=== PATIENT | female | born 1945 | race Caucasian/White ===

== ENCOUNTER 2023-09-06 11:07 | Emergency (ER) | payer MEDICARE, MEDICAID, SELFPAY ==
[2023-09-06] VITALS (20 sets, daily range): BP systolic 103–142; BP diastolic 48–66; PULSE 37–81; TEMP 36.6; O2SAT 82–98; BMI 30.7
--- NOTE | 2023-09-06 11:12 | ED.SOB1 ---
HPI - SOB/Dyspnea General Chief Complaint: Shortness of Breath/Dyspnea Stated Complaint: SOB Time Seen by Provider: 09/06/23 11:12 Source: patient History of Present Illness HPI Narrative: Patient brought to us from the [facility]. She is an extremely limited historian. Abena brought her and said that called her because of shortness of breath. When they put her on the monitor she had mild hypoxemia but she was extremely bradycardic. When she arrived here I reviewed her medical records and she is on a beta-shanti, calcium channel shanti and Lanoxin. She is not having any chest pain. A stat twelve-lead EKG will be done and shows undetermined rhythm with no distinct P waves. It may be a junctional escape rhythm at rate 37. It fluctuated between 37 and 50. Fortunately her blood pressure has remained stable with systolics above 130. Her son arrived and we had an extensive discussion about her conditions. 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 While she is a full code numerous physicians have told her that she is not a candidate for any type of surgical procedures for her other medical problems. Related Data Home Medications ?Medication ?Instructions ?Recorded ?Confirmed Lactobacillus acidophilus, 1 packet PO DAILY 09/06/23 09/06/23 bulgaricus 100 million cell granules packet (Floranex) acarbose 100 mg tablet 100 mg PO TID 09/06/23 09/06/23 acetaminophen 500 mg capsule 1,000 mg PO DAILY 09/06/23 09/06/23 atorvastatin 20 mg tablet (Lipitor) 20 mg PO DAILY 09/06/23 09/06/23 calcium carbonate 500 mg-vitamin 1 tab PO BID 09/06/23 09/06/23 D3 10 mcg (400 unit) tablet (Oyster Shell Calcium-Vitamin D3) conjugated estrogens 0.625 mg/gram 0.625 mg vaginal DAILY 09/06/23 09/06/23 vaginal cream (Premarin) dextromethorphan 20 mg-quinidine 1 cap PO Q12H 09/06/23 09/06/23 10 mg capsule (Nuedexta) digoxin 125 mcg (0.125 mg) tablet 125 mcg PO DAILY 09/06/23 09/06/23 (Digitek) diltiazem HCl 180 mg 180 mg PO DAILY 09/06/23 09/06/23 capsule,extended release 24 hr (Cardizem CD) duloxetine 30 mg capsule,delayed 30 mg PO DAILY 09/06/23 09/06/23 release (Cymbalta) ergocalciferol (vitamin D2) 1,250 50,000 unit PO QDAY 09/06/23 09/06/23 mcg (50,000 unit) capsule (Vitamin D2) famotidine 40 mg tablet (Pepcid) 40 mg PO DAILY 09/06/23 09/06/23 ferrous sulfate 325 mg (65 mg 325 mg PO DAILY 09/06/23 09/06/23 iron) tablet (FeroSul) lamotrigine 100 mg tablet 100 mg PO DAILY 09/06/23 09/06/23 (Lamictal) magnesium 200 mg tablet 400 mg PO DAILY 09/06/23 09/06/23 melatonin 10 mg capsule 10 mg PO DAILY 09/06/23 09/06/23 memantine 21 mg capsule 21 mg PO DAILY 09/06/23 09/06/23 sprinkle,extended release 24hr metformin 1,000 mg tablet 1,000 mg PO DAILY 09/06/23 09/06/23 metformin 500 mg tablet 500 mg PO BID 09/06/23 09/06/23 metoprolol tartrate 50 mg tablet 50 mg PO DAILY 09/06/23 09/06/23 (Lopressor) nitroglycerin 0.4 mg sublingual 0.4 mg sublingual Q5M 09/06/23 09/06/23 tablet (Nitrostat) pioglitazone 15 mg tablet (Actos) 7.5 mg PO DAILY 09/06/23 09/06/23 polyethylene glycol 3350 17 17 g PO BID PRN constipation 09/06/23 09/06/23 gram/dose oral powder (ClearLax) psyllium husk 0.4 gram capsule 0.4 g PO BID 09/06/23 09/06/23 (Daily Fiber) rivaroxaban 20 mg tablet (Xarelto) 20 mg PO DAILY 09/06/23 09/06/23 simethicone 125 mg capsule (Gas 125 mg PO TID-QID PRN abdominal 09/06/23 09/06/23 Relief (simethicone)) distention spironolactone 50 mg tablet 50 mg PO DAILY 09/06/23 09/06/23 trazodone 150 mg tablet 150 mg PO DAILY 09/06/23 09/06/23 Allergies Allergy/AdvReac Type Severity Reaction Status Date / Time aspirin Allergy Unknown Verified 09/06/23 11:21 fluoxetine [From Prozac] Allergy Unknown Verified 09/06/23 11:21 hydrochlorothiazide Allergy Unknown Verified 09/06/23 11:21 Penicillins Allergy Unknown Verified 09/06/23 11:21 pregabalin [From Lyrica] Allergy Unknown Verified 09/06/23 11:21 sertraline [From Zoloft] Allergy Unknown Verified 09/06/23 11:21 Sulfa (Sulfonamide Allergy Unknown Verified 09/06/23 11:21 Antibiotics) tetanus and diphtheria Allergy Unknown Verified 09/06/23 11:21 toxoids Exam Narrative Exam Narrative: Patient is awake and alert she is somewhat difficult to understand because of slurred speech from her previous stroke. But she specifically denies any pain in her chest . She does admit to some dyspnea and her oxygen levels were controlled with nasal cannula so as to maintain good pulse oximetry. She is oriented x 3 she can talk about her family and interacts well with the staff and myself. Lungs showed some scattered rhonchi bilaterally. Heart sounds show distant heart sounds. This is consistent with a chest x-ray that shows vascular congestion consistent with CHF. Rhythm is bradycardic. Abdomen is nontender. There is no obvious ascites. Her extremities have some peripheral edema and there is a sore on the medial aspect of her left great toe that appears to be an early pressure ulcer. There is no extensive cellulitis associated with this. Extremities are warm and dry. Constitutional Vital Signs, click to edit/add: Last Vital Signs Temp 97.9 F 09/06/23 11:09 Pulse 51 L 09/06/23 11:09 Resp 16 09/06/23 11:09 BP 142/53 H 09/06/23 12:26 Pulse Ox 82 L 09/06/23 11:09 O2 Del Method Room Air 09/06/23 11:09 Course Vital Signs Vital signs: Vital Signs Temperature 97.9 F 09/06/23 11:09 Pulse Rate 51 L 09/06/23 11:09 Respiratory Rate 16 09/06/23 11:09 Blood Pressure 142/53 H 09/06/23 11:09 Pulse Oximetry 82 L 09/06/23 11:09 Oxygen Delivery Method Room Air 09/06/23 11:09 Temperature 97.9 F 09/06/23 11:09 Pulse Rate 51 L 09/06/23 11:09 Respiratory Rate 16 09/06/23 11:09 Blood Pressure 142/53 H 09/06/23 12:26 Pulse Oximetry 82 L 09/06/23 11:09 Oxygen Delivery Method Room Air 09/06/23 11:09 MDM - SOB/Dyspnea MDM Narrative Medical decision making narrative: This patient presents with hemodynamically stable bradycardia arrhythmia. Digoxin level was found to be substantially elevated. She is also on calcium channel blockers and beta-blockers. Chest x-ray consistent with pulmonary vascular congestion. BNP consistent with congestive heart failure as well. I feel she can best be managed at a tertiary care facility as she may need a pacemaker imminently. I spoke with [facility] director of capital giving and the emergency room physician where they have excepted her for immediate transfer to that facility. They did recommend [facility]ib[facility] and we will have our pharmacy or dose that for her. Fortunately her blood pressures remained stable mental status is normal. I also spoke with her primary care Dr. Ramírez to update him as well. Lab Data Labs: Lab Results 09/06/23 Range/Units 11:00 WBC 13.7 H (4.0-11.0) 10^3/uL RBC 3.11 L (4.20-5.40) 10^6/uL Hgb 9.1 L (12.0-16.0) g/dL Hct 30.7 L (36.0-48.0) % MCV 98.7 (81.0-99.0) fL MCH 29.3 (26.7-34.0) pg MCHC 29.6 L (29.9-35.2) g/dL RDW 17.6 H (11.0-15.0) % Plt Count 384 (150-450) 10^3/uL MPV 8.8 L (9.5-13.5) fL Neut % (Auto) 81.5 H (43.0-75.0) % Lymph % (Auto) 9.8 L (20.5-60.0) % [place] % (Auto) 6.0 (1.7-12.0) % Eos % (Auto) 1.5 (0.9-7.0) % Baso % (Auto) 0.3 (0.2-2.0) % Neut # (Auto) 11.2 H (1.4-6.5) 10^3/uL Lymph # (Auto) 1.3 (1.2-3.8) 10^3/uL [place] # (Auto) 0.8 (0.3-0.8) 10^3/uL Eos # (Auto) 0.2 (0.0-0.7) 10^3/uL Baso # (Auto) 0.0 (0.0-0.1) 10^3/uL Abs Immat Gran (auto) 0.12 H (0.00-0.03) 10^3/uL Imm/Tot Granulo (auto) 0.9 H (0.0-0.5) % PT 13.5 H (9.0-11.6) sec INR 1.31 Sodium 137 (136-145) mmol/L Potassium 5.4 H (3.5-5.1) mmol/L Chloride 99 (98-107) mmol/L Carbon Dioxide 36.3 H (21.0-32.0) mmol/L Anion Gap 7.1 BUN 21.0 H (7.0-18.0) mg/dL Creatinine 0.72 (0.55-1.02) mg/dL Est GFR ( Amer) >60 (>=60) Est GFR (Non-Af Amer) >60 (>=60) BUN/Creatinine Ratio 29.2 Glucose 147 H (74-106) mg/dL Calcium 10.2 H (8.5-10.1) mg/dL Total Bilirubin 0.4 (0.2-1.0) mg/dL AST 10 L (15-37) U/L ALT 12 L (14-59) U/L Alkaline Phosphatase 54 (46-116) U/L Troponin I High Sens 9.5 (4.0-51.3) pg/mL NT-Pro-B Natriuret Pep 3970.0 H* (<=1800.0) pg/mL Total Protein 7.5 (6.4-8.2) g/dL Albumin 2.5 L (3.4-5.0) g/dL Globulin 5.0 g/dL Albumin/Globulin Ratio 0.5 Digoxin 2.6 H* (0.9-2.0) ng/mL Discharge Plan Discharge Chief Complaint: Shortness of Breath/Dyspnea Clinical Impression: Bradycardia, Digitalis toxicity Patient Disposition: [facility] Time of Disposition Decision: 12:47 Condition: Serious Mode of Transportation: EMS Prescriptions / Home Meds: No Action digoxin [Digitek] 125 mcg (0.125 mg) tablet 125 mcg PO DAILY acetaminophen 500 mg capsule 1,000 mg PO DAILY ferrous sulfate [FeroSul] 325 mg (65 mg iron) tablet 325 mg PO DAILY lamotrigine [Lamictal] 100 mg tablet 100 mg PO DAILY atorvastatin [Lipitor] 20 mg tablet 20 mg PO DAILY magnesium 200 mg tablet 400 mg PO DAILY metformin 1,000 mg tablet 1,000 mg PO DAILY metformin 500 mg tablet 500 mg PO BID metoprolol tartrate [Lopressor] 50 mg tablet 50 mg PO DAILY calcium carbonate-vitamin D3 [Oyster Shell Calcium-Vit D3] 500 mg-10 mcg (400 unit) tablet 1 tab PO BID famotidine [Pepcid] 40 mg tablet 40 mg PO DAILY simethicone [Gas Relief (simethicone)] 125 mg capsule 125 mg PO TID-QID PRN (Reason: abdominal distention) ergocalciferol (vitamin D2) [Vitamin D2] 1,250 mcg (50,000 unit) capsule 50,000 unit PO QDAY Xarelto 20 mg tablet 20 mg PO DAILY Rx Instructions: must administer with evening meal psyllium husk [Daily Fiber] 0.4 gram capsule 0.4 g PO BID Lactobacillus acidoph-L.bulgar [Floranex] 100 million cell granules in packet 1 packet PO DAILY memantine 21 mg capsule,sprinkle,ER 24hr 21 mg PO DAILY spironolactone 50 mg tablet 50 mg PO DAILY polyethylene glycol 3350 [ClearLax] 17 gram/dose powder 17 g PO BID PRN (Reason: constipation) nitroglycerin [Nitrostat] 0.4 mg tablet, sublingual 0.4 mg sublingual Q5M Rx Instructions: do not exceed 3 doses per episode pioglitazone [Actos] 15 mg tablet 7.5 mg PO DAILY diltiazem HCl [Cardizem CD] 180 mg capsule,extended release 24hr 180 mg PO DAILY Nuedexta 20-10 mg capsule 1 cap PO Q12H acarbose 100 mg tablet 100 mg PO TID Premarin 0.625 mg/gram cream 0.625 mg vaginal DAILY Rx Instructions: off 5 days; repeat cycle duloxetine [Cymbalta] 30 mg capsule,delayed release(DR/EC) 30 mg PO DAILY melatonin 10 mg capsule 10 mg PO DAILY trazodone 150 mg tablet 150 mg PO DAILY Print Language: Turkish Referrals: MARY KAY MAJOR MD [Primary Care Provider] - 1 week
--- NOTE | 2023-09-06 11:13 | ECG_ITS ---
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
[2023-09-06 11:29] LABS: Basophils Percent Auto 0.3 % (0.2-2.0); Eosinophils Absolute Auto 0.2 10^3/uL (0.0-0.7); Eosinophils Percent Auto 1.5 % (0.9-7.0); Hematocrit 30.7 % (36.0-48.0); Hemoglobin 9.1 g/dL (12.0-16.0); Immature Granulocytes Abs Auto 0.12 10^3/uL (0.00-0.03); Immature Granulocytes Pct Auto 0.9 % (0.0-0.5); Lymphocytes Absolute Auto 1.3 10^3/uL (1.2-3.8); Lymphocytes Percent Auto 9.8 % (20.5-60.0); Mean Corpuscular HGB Conc 29.6 g/dL (29.9-35.2); Mean Corpuscular Hemoglobin 29.3 pg (26.7-34.0); Mean Corpuscular Volume 98.7 fL (81.0-99.0); Mean Platelet Volume 8.8 fL (9.5-13.5); Monocytes Absolute Auto 0.8 10^3/uL (0.3-0.8); Neutrophils Absolute Auto 11.2 10^3/uL (1.4-6.5); Neutrophils Percent Auto 81.5 % (43.0-75.0); Platelet Count 384 10^3/uL (150-450); Red Blood Count 3.11 10^6/uL (4.20-5.40); Red Cell Distribution Width 17.6 % (11.0-15.0); White Blood Count 13.7 10^3/uL (4.0-11.0)
[2023-09-06 11:45] LABS: INR 1.31; Prothrombin Time 13.5 sec (9.0-11.6)
[2023-09-06 11:48] LABS: Alanine Aminotransferase 12 U/L (14-59); Albumin Globulin Ratio 0.5; Albumin Level 2.5 g/dL (3.4-5.0); Alkaline Phosphatase 54 U/L (46-116); Anion Gap 7.1; Aspartate Amino Transferase 10 U/L (15-37); BUN Creatinine Ratio 29.2; Bilirubin Total 0.4 mg/dL (0.2-1.0); Calcium 10.2 mg/dL (8.5-10.1); Carbon Dioxide 36.3 mmol/L (21.0-32.0); Chloride 99 mmol/L (98-107); Estimated GFR (African America >60 (>=60); Estimated GFR (Non-African Ame >60 (>=60); Glucose 147 mg/dL (74-106); Potassium 5.4 mmol/L (3.5-5.1); Sodium 137 mmol/L (136-145); Total Protein 7.5 g/dL (6.4-8.2); Troponin I High Sensitivity 9.5 pg/mL (4.0-51.3)
--- NOTE | 2023-09-06 11:52 | XR_ITS ---
The [address] [address] Patient Name: NAVEED PRADO MRN: [id number] date: 1945 Sex: F Assigned Patient Location: ER Current Patient Location: ER Accession/Order Number: [id number] Exam Date: 09/06/2023 11:45 Report Date: 09/06/2023 12:07 At the request of: LUKASZ HERNADEZ Procedure: XR chest 1V EXAMINATION: XR chest 1V HISTORY: Bradycardia COMPARISON: XR chest 02/26/2022 FINDINGS: LUNGS: Heterogeneous increased opacity throughout the lungs. Defibrillator pads overlie the lower chest. VASCULATURE: No increased pulmonary vasculature. PLEURA: No pneumothorax, effusion, or pleural thickening. CARDIAC: No cardiomegaly or cardiac silhouette abnormality. MEDIASTINUM: No visible mass or adenopathy. BONES: No fracture or visible bone lesion. OTHER: Negative. XR/XR chest 1V IMPRESSION: 1. Moderate-marked bilateral pulmonary infiltrates; pulmonary edema versus pneumonitis versus pneumonia. Electronically authenticated by: BRITTANY YBARRA Date: 09/06/2023 12:07
[2023-09-06 12:12] LABS: Digoxin 2.6 ng/mL (0.9-2.0)
[2023-09-06] MEDS: BUMETANIDE 1 MG/4 ML VIAL IVP (12:26)
[2023-09-06] MEDS: DIGOXIN IMMUNE FAB IV (13:12)
[2023-09-06] MEDS: SODIUM CHLORIDE 0.9% IV (13:12)
[2023-09-06] MEDS: WATER FOR INJECTION, STERILE 20 ML VIAL 8 ML INJ (13:13)
== END 2023-09-06 15:12 | disposition short-term general hospital (02) ==
PROVIDERS: Emergency Provider Emergency Medicine Emergency Medical Services; PCP Internal Medicine
DX: R00.1 Bradycardia, unspecified (principal); T46.0X5A Adverse effect of cardiac-stimulant glycosides and drugs of similar action, initial encounter; Z86.73 Personal history of transient ischemic attack (TIA), and cerebral infarction without residual deficits; Z99.3 Dependence on wheelchair
CPT/HCPCS: 36415; 71045; 80053; 80162; 83880; 84484; 85025; 85610; 93005; 96365; 96366; 96375; 99285; J1162

== ENCOUNTER 2023-09-24 09:56 | Emergency (ER) | payer MEDICARE, MEDICAID, SELFPAY ==
[2023-09-24] VITALS (46 sets, daily range): BP systolic 98–136; BP diastolic 58–101; PULSE 82–126; TEMP 36.4; O2SAT 96–100; BMI 27.6
--- NOTE | 2023-09-24 10:17 | ED_ITS ---
HPI - Weakness General Chief complaint: Weakness Stated complaint: GENERAL WEAKNESS Time Seen by Provider: 09/24/23 10:11 Source: patient Mode of arrival: ambulance Limitations: no limitations History of Present Illness HPI Narrative: This patient brought to us from a care for Weakness. When I interview her she denies any pain or discomfort. She says her butt hurts. She denies any chest pain. She says she wears oxygen at the residential. She knows the date and her situation. Her vitals here are stable and she is afebrile. She wears oxygen nasal cannula and her oximetry is excellent at 97%. She denies any headache discomfort in her chest or abdominal pain. I have reviewed some of her previous images and laboratory testing from previous ER visits. She did not need a pacemaker after having digitalis toxicity and are transferred to a tertiary center previously. Related Data Home Medications ?Medication ?Instructions ?Recorded ?Confirmed acetaminophen 500 mg capsule 1,000 mg PO DAILY 09/06/23 09/24/23 atorvastatin 20 mg tablet (Lipitor) 20 mg PO DAILY 09/06/23 09/24/23 calcium carbonate 500 mg-vitamin 1 tab PO BID 09/06/23 09/24/23 D3 10 mcg (400 unit) tablet (Oyster Shell Calcium-Vitamin D3) conjugated estrogens 0.625 mg/gram 0.625 mg vaginal DAILY 09/06/23 09/24/23 vaginal cream (Premarin) dextromethorphan 20 mg-quinidine 1 cap PO Q12H 09/06/23 09/06/23 10 mg capsule (Nuedexta) digoxin 125 mcg (0.125 mg) tablet 125 mcg PO DAILY 09/06/23 09/24/23 (Digitek) duloxetine 30 mg capsule,delayed 30 mg PO DAILY 09/06/23 09/24/23 release (Cymbalta) famotidine 40 mg tablet (Pepcid) 20 mg PO DAILY 09/06/23 09/24/23 ferrous sulfate 325 mg (65 mg 325 mg PO DAILY 09/06/23 09/24/23 iron) tablet (FeroSul) lamotrigine 100 mg tablet 100 mg PO DAILY 09/06/23 09/24/23 (Lamictal) magnesium 200 mg tablet 400 mg PO DAILY 09/06/23 09/24/23 melatonin 10 mg capsule 10 mg PO DAILY 09/06/23 09/24/23 memantine 21 mg capsule 21 mg PO DAILY 09/06/23 09/24/23 sprinkle,extended release 24hr metformin 1,000 mg tablet 1,000 mg PO DAILY 09/06/23 09/24/23 metoprolol tartrate 50 mg tablet 50 mg PO Q12H 09/06/23 09/24/23 (Lopressor) nitroglycerin 0.4 mg sublingual 0.4 mg sublingual Q5M 09/06/23 09/24/23 tablet (Nitrostat) polyethylene glycol 3350 17 17 g PO BID PRN constipation 09/06/23 09/24/23 gram/dose oral powder (ClearLax) psyllium husk 0.4 gram capsule 0.4 g PO BID 09/06/23 09/24/23 (Daily Fiber) rivaroxaban 20 mg tablet (Xarelto) 20 mg PO DAILY 09/06/23 09/24/23 spironolactone 50 mg tablet 50 mg PO DAILY 09/06/23 09/24/23 trazodone 150 mg tablet 150 mg PO DAILY 09/06/23 09/24/23 artificial drp ophthalmic (eye) 09/24/23 tears([id number]) 0.1 %-0.3 %-0.2 % eye drops (GenTeal Tears Moderate) clobetasol 0.05 % topical cream 1 applic topical BID PRN vaginal 09/24/23 09/24/23 irritation famotidine 40 mg tablet (Pepcid) 40 mg PO DAILY 09/24/23 09/24/23 lamotrigine 25 mg tablet 25 mg PO DAILY 09/24/23 09/24/23 linagliptin 5 mg tablet (Tradjenta) 5 mg PO DAILY 09/24/23 09/24/23 Allergies Allergy/AdvReac Type Severity Reaction Status Date / Time aspirin Allergy Unknown Verified 09/06/23 11:21 fluoxetine [From Prozac] Allergy Unknown Verified 09/06/23 11:21 hydrochlorothiazide Allergy Unknown Verified 09/06/23 11:21 Penicillins Allergy Unknown Verified 09/06/23 11:21 pregabalin [From Lyrica] Allergy Unknown Verified 09/06/23 11:21 sertraline [From Zoloft] Allergy Unknown Verified 09/06/23 11:21 Sulfa (Sulfonamide Allergy Unknown Verified 09/06/23 11:21 Antibiotics) tetanus and diphtheria Allergy Unknown Verified 09/06/23 11:21 toxoids Exam Narrative Exam Narrative: She is awake alert oriented no evidence of acute confusion or change in mental status. She follows all simple and complex hands. She actually just says she feels weak and has a little pain near her buttock area. She does not have any abdominal discomfort shortness of breath or chest discomfort of any sort. Also there are normal and she has been afebrile. She has been on oxygen since her last ER visit. Constitutional it does not appear pale or and does not have any scleral icterus. No conjunctival us. Oral cavity mucous memories are moist and pink there is no upper airway obstruction or stridor. Lungs showed some scattered rhonchi decreased lung sounds on the left side. No subcutaneous emphysema. Trachea is in the midline. Her quality assurance monitor final shows continuing atrial fibrillation with a controlled ventricular response I do not hear any murmur. Abdomen is benign with no pain she has morbidly obese but there is no guarding rebound rigidity or discomfort with palpation. Neurological examination shows her cognition and mentation be normal there is no focality of findings. Constitutional Vital Signs, click to edit/add: Last Vital Signs Temp 97.6 F 09/24/23 10:02 Pulse 104 H 09/24/23 13:10 Resp 14 09/24/23 13:10 BP 100/68 09/24/23 13:01 Pulse Ox 100 09/24/23 13:10 O2 Del Method Nasal Cannula 09/24/23 10:15 O2 Flow Rate 2 09/24/23 10:15 Course Vital Signs Vital signs: Vital Signs Temperature 97.6 F 09/24/23 10:02 Pulse Rate 98 H 09/24/23 10:02 Respiratory Rate 22 H 09/24/23 10:02 Blood Pressure 114/65 09/24/23 10:02 Pulse Oximetry 97 09/24/23 10:02 Oxygen Delivery Method Nasal Cannula 09/24/23 10:02 Oxygen Delivery Flow Rate 2 09/24/23 10:02 Temperature 97.6 F 09/24/23 10:02 Pulse Rate 104 H 09/24/23 13:10 Respiratory Rate 14 09/24/23 13:10 Blood Pressure 100/68 09/24/23 13:01 Pulse Oximetry 100 09/24/23 13:10 Oxygen Delivery Method Nasal Cannula 09/24/23 10:15 Oxygen Delivery Flow Rate 2 09/24/23 10:15 MDM - Weakness MDM Narrative Medical decision making narrative: Patient's laboratory testing did not disclose any severe deterioration of her condition. Chest x-ray findings are equivocal ball so we did do a CT scan. CT scan does not show and there interval worsening of her previous findings. Her vital signs and oxygen saturation remained stable here. Her urinalysis was done and does not show any evidence of an infectious process. Do not have any acute need for hospitalization at this time. She did receive some IV fluids Lab Data Labs: Lab Results 09/24/23 09/24/23 Range/Units 11:21 13:07 WBC 13.3 H (4.0-11.0) 10^3/uL RBC 3.57 L (4.20-5.40) 10^6/uL Hgb 10.4 L (12.0-16.0) g/dL Hct 35.4 L (36.0-48.0) % MCV 99.2 H (81.0-99.0) fL MCH 29.1 (26.7-34.0) pg MCHC 29.4 L (29.9-35.2) g/dL RDW 16.8 H (11.0-15.0) % Plt Count 407 (150-450) 10^3/uL MPV 8.4 L (9.5-13.5) fL Neut % (Auto) 77.0 H (43.0-75.0) % Lymph % (Auto) 11.3 L (20.5-60.0) % [place] % (Auto) 8.8 (1.7-12.0) % Eos % (Auto) 1.7 (0.9-7.0) % Baso % (Auto) 0.4 (0.2-2.0) % Neut # (Auto) 10.3 H (1.4-6.5) 10^3/uL Lymph # (Auto) 1.5 (1.2-3.8) 10^3/uL [place] # (Auto) 1.2 H (0.3-0.8) 10^3/uL Eos # (Auto) 0.2 (0.0-0.7) 10^3/uL Baso # (Auto) 0.1 (0.0-0.1) 10^3/uL Abs Immat Gran (auto) 0.10 H (0.00-0.03) 10^3/uL Imm/Tot Granulo (auto) 0.8 H (0.0-0.5) % VBG pH 7.455 H (7.330-7.430) VBG pCO2 47.3 (40.0-52.0) mmHg Sodium 136 (136-145) mmol/L Potassium 4.8 (3.5-5.1) mmol/L Chloride 98 (98-107) mmol/L Carbon Dioxide 32.5 H (21.0-32.0) mmol/L Anion Gap 10.3 BUN 20.0 H (7.0-18.0) mg/dL Creatinine 0.79 (0.55-1.02) mg/dL Est GFR ( Amer) >60 (>=60) Est GFR (Non-Af Amer) >60 (>=60) BUN/Creatinine Ratio 25.3 Glucose 130 H (74-106) mg/dL Lactate 2.1 H (0.4-2.0) mmol/L Calcium 10.4 H (8.5-10.1) mg/dL Total Bilirubin 0.4 (0.2-1.0) mg/dL AST 17 (15-37) U/L ALT 14 (14-59) U/L Alkaline Phosphatase 60 (46-116) U/L Troponin I High Sens 8.8 (4.0-51.3) pg/mL NT-Pro-B Natriuret Pep 3005.0 H* (<=1800.0) pg/mL Total Protein 7.9 (6.4-8.2) g/dL Albumin 2.5 L (3.4-5.0) g/dL Globulin 5.4 g/dL Albumin/Globulin Ratio 0.5 Urine Color Dk yellow (YELLOW) Urine Clarity Clear (CLEAR) Urine pH 6.5 (5.0-9.0) Ur Specific [place] 1.020 (1.005-1.025) Urine Protein Trace (NEG/TRACE) mg/dL Urine Glucose (UA) Negative (NEGATIVE) mg/dL Urine Ketones Trace A (NEGATIVE) mg/dL Urine Occult Blood Negative (NEGATIVE) Urine Nitrite Negative (NEGATIVE) Urine Bilirubin Negative (NEGATIVE) Urine Urobilinogen 0.2 (0.2-1.0) EU/dL Ur Leukocyte Esterase Negative (NEGATIVE) Discharge Plan Discharge Stand Alone Forms: Portal Instructions Chief Complaint: Weakness Clinical Impression: Atrial fibrillation with controlled ventricular rate Patient Disposition: Home, Self-Care Time of Disposition Decision: 13:34 Prescriptions / Home Meds: No Action clobetasol 0.05 % cream 1 applic TOPICAL BID PRN (Reason: vaginal irritation) lamotrigine 25 mg tablet 25 mg PO DAILY artificial tear([id number]) [GenTeal Tears Moderate] 0.1-0.3-0.2 % drops OPHTHALMIC (EYE) famotidine [Pepcid] 40 mg tablet 40 mg PO DAILY Tradjenta 5 mg tablet 5 mg PO DAILY digoxin [Digitek] 125 mcg (0.125 mg) tablet 125 mcg PO DAILY acetaminophen 500 mg capsule 1,000 mg PO DAILY ferrous sulfate [FeroSul] 325 mg (65 mg iron) tablet 325 mg PO DAILY lamotrigine [Lamictal] 100 mg tablet 100 mg PO DAILY atorvastatin [Lipitor] 20 mg tablet 20 mg PO DAILY magnesium 200 mg tablet 400 mg PO DAILY metformin 1,000 mg tablet 1,000 mg PO DAILY metoprolol tartrate [Lopressor] 50 mg tablet 50 mg PO Q12H calcium carbonate-vitamin D3 [Oyster Shell Calcium-Vit D3] 500 mg-10 mcg (400 unit) tablet 1 tab PO BID famotidine [Pepcid] 40 mg tablet 20 mg PO DAILY Xarelto 20 mg tablet 20 mg PO DAILY Rx Instructions: must administer with evening meal psyllium husk [Daily Fiber] 0.4 gram capsule 0.4 g PO BID memantine 21 mg capsule,sprinkle,ER 24hr 21 mg PO DAILY spironolactone 50 mg tablet 50 mg PO DAILY polyethylene glycol 3350 [ClearLax] 17 gram/dose powder 17 g PO BID PRN (Reason: constipation) nitroglycerin [Nitrostat] 0.4 mg tablet, sublingual 0.4 mg sublingual Q5M Rx Instructions: do not exceed 3 doses per episode Nuedexta 20-10 mg capsule 1 cap PO Q12H Premarin 0.625 mg/gram cream 0.625 mg vaginal DAILY Rx Instructions: off 5 days; repeat cycle duloxetine [Cymbalta] 30 mg capsule,delayed release(DR/EC) 30 mg PO DAILY melatonin 10 mg capsule 10 mg PO DAILY trazodone 150 mg tablet 150 mg PO DAILY Print Language: Guatemalan Additional Instructions: Continue present medications Referrals: MARY KAY MAJOR DO [Primary Care Provider] - 1 week
--- NOTE | 2023-09-24 10:18 | ECG_ITS ---
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
--- NOTE | 2023-09-24 10:18 | XR_ITS ---
The [address] [address] Patient Name: NAVEED PRADO MRN: [id number] date: 1945 Sex: F Assigned Patient Location: ER Current Patient Location: ER Accession/Order Number: [id number] Exam Date: 09/24/2023 10:36 Report Date: 09/24/2023 10:48 At the request of: LUKASZ HERNADEZ Procedure: XR chest 1V EXAMINATION: XR chest 1V HISTORY: Weakness , lethargy COMPARISON: XR chest 09/06/2023 FINDINGS: LUNGS: Partial collapse of left lung. Mild bronchiectasis and slight right hilar prominence. VASCULATURE: No increased pulmonary vasculature. PLEURA: Large left pleural effusion. CARDIAC: Cannot assess. MEDIASTINUM: No visible mass or adenopathy. BONES: No fracture or visible bone lesion. OTHER: Negative. XR/XR chest 1V IMPRESSION: 1. Large left pleural effusion with partial collapse of left lung; likely passive atelectasis. Consider CT chest for further evaluation. Electronically authenticated by: BRITTANY YBARRA Date: 09/24/2023 10:48
[2023-09-24] MEDS: 0.9 % SODIUM CHLORIDE 1,000 ML 100 ML IV (10:26)
--- OUTSIDE RECORDS SUMMARY | 2023-09-24 10:26 | XMS_ITS | CCD ---
Author Organization [facility] Inform ion Partnership [facility] Care Team Providers Care Local City Driver Name Role Phone FLORIN, DR PRESTON Attending Unavailable FLORIN, DR PRESTON Admitting Unavailable FLORIN, DR PRESTON Consulting Unavailable VALLEONIDAS, DR MUÑIZ Primary Care Unavailable YUE, DR ZENON Loya Consulting Unavailable TATE, DR BRITTANY Wallace Consulting Unavailable CIARA SORIA Consulting Unavailable MILLICENT ESPINAL Consulting Unavailable IDANIA CUEVAS Consulting Unavailable KOBI TOMAS Consulting Unavailable KARSTEN MUJICA Consulting Unavailable ANUSHKA FLANAGAN Consulting Unavailable MARY KAY MAJOR Primary Care Unavailable SHEELA ORANTES Admitting Unavailable STACY COOK Attending Unavailable BRISEYDA AGOSTO Consulting Unavailable SHEELA ORANTES Consulting Unavailable BOBBIJENSEN ALLEN Consulting Unavailable SELIN SZYMANSKI Consulting Unavailabl e Allergies Allergy Classification Reported Allergen(s) Allergy Type Date of Onset Reaction(s) Facility (1 source) Allopurinol Drug Allergy 05-22-19 14 [facility] Repository (1 source) Aspirin Drug Allergy 05-22-19 14 [facility] Rep[facility] (1 source) buPROPion Drug Allergy 09-26-19 17 [facility] Rep[facility] (1 source) DULoxetine Drug Allergy 01-27-20 16 [facility] Rep[facility] (1 source) FLUoxetine Drug Allergy 09-26-19 17 [facility] Repository (1 source) hydroCHLOROthiazide Drug Allergy 05-22-19 14 [facility] Rep[facility] (1 source) lamoTRIgine Drug Allergy 09-26-19 17 [facility] Repository (1 source) Penicillins Drug allergy (disorder) 05-22-19 14 [facility] Rep[facility] (1 source) pregabalin Drug Allergy 05-22-19 14 [facility] Rep[facility] (1 source) Sertraline Drug Allergy 01-27-20 16 [facility] Rep[facility] (1 source) Sulfonamides (Antibiotic) Drug allergy (disorder) 05-22-19 14 [facility] Rep[facility] Problems Problem Classification Problem Date Documented Date Episodic/Chronic Cardiac dysrhythmias (1 source) Unspecified atrial fibrillation; Translations: [UNSPECIFIED ATRIAL FIBRILLATION] Onset: 02-24-2022 Chronic Cardiac dysrhythmias (1 source) Bradycardia, unspecified; Translations: [Bradycardia, unspecified] Onset: 09-08-2023 Episodic Congestive heart failure; nonhypertensive (2 sources) Heart failure, unspecified; Translations: [HEART FAILURE UNSPECIFIED] Onset: 02-24-2022 Chronic Coronary atherosclerosis and other heart disease (1 source) Atherosclerotic heart disease of [place] coronary artery without angina pectoris; Translations: [ASHD AKHIOK CA W/O ANGINA PECTORIS] Onset: 02-24-2022 Chronic Deficiency and other anemia (1 source) Iron deficiency anemia, unspecified; Translations: [IRON DEFICIENCY ANEMIA UNSPECIFIED] Onset: 02-24-2022 Episodic Diabetes mellitus without complication (1 source) Type 2 diabetes mellitus without complications; Translations: [TYPE 2 DM WITHOUT COMPLICATIONS] Onset: 02-24-2022 Chronic Esophageal disorders (1 source) Gastro-esophageal reflux disease without esophagitis; Translations: [GERD WITHOUT ESOPHAGITIS] Onset: 02-24-2022 Chronic Hypertension with complications and secondary hypertension (1 source) Hypertensive heart disease with heart failure; Translations: [HTN HEART DISEASE W/HEART FAIL] Onset: 02-24-2022 Chronic Influenza (1 source) Influenza due to other identified influenza virus with unspecified type of pneumonia; Translations: [FLU D/T OTH ID FLU VIR UNS TYPE PN] Onset: 02-24-2022 Episodic Other aftercare (1 source) Other intermediate frame tender (current) drug therapy; Translations: [OTH HOSPITALITY TEAM MEMBER CURRENT DRUG THERAPY] Onset: 02-24-2022 Episodic Other circulatory disease (1 source) Personal history of transient ischemic attack (TIA), and cerebral infarction without residual deficits; Translations: [PERS HX TIA AND CI NO RESID DEFICIT] Onset: 02-24-2022 Episodic Other nutritional; endocrine; and metabolic disorders (1 source) Morbid (severe) obesity due to excess calories; Translations: [MORBID SEVERE OBES D/T EXCESS MONO] Onset: 02-24-2022 Chronic Poisoning by other medications and drugs (1 source) Poisoning by cardiac-stimulant glycosides and drugs of similar action, accidental (unintentional), initial encounter; Translations: [Poisoning by cardiac-stimulant glycosides and drugs of similar action, accidental (unintentional), initial encounter] Onset: 09-08-2023 Episodic Respiratory failure; insufficiency; arrest (adult) (1 source) Acute respiratory failure with hypoxia; Translations: [ACUTE RESPIRATORY FAIL W/HYPOXIA] Onset: 02-24-2022 Episodic Septicemia (except in labor) (3 sources) Sepsis, unspecified organism; Translations: [SEPSIS UNSPECIFIED ORGANISM] Onset: 02-22-2022 Episodic Shock (1 source) Severe sepsis with septic shock; Translations: [SEVERE SEPSIS WITH SEPTIC SHOCK] Onset: 02-24-2022 Episodic Unclassified (1 source) ACIDOSIS UNSPECIFIED; Translations: [ACIDOSIS UNSPECIFIED] Onset: 02-24-2022 Urinary tract infections (1 source) Urinary tract infection, site not specified; Translations: [UTI SITE NOT SPECIFIED] Onset: 02-24-2022 Episodic Results Test Name Value Interpretation Reference Range Facility Basic Metab w/rfx MGon 09-08 Anion gap [Moles/Vol] 8 mmol/L Low 9-16 [facility] Comment on above: Performed By: #### YENY KNOX, BNP #### [employer] [address] [place] [address] [phone] Field Secretary: Giovany Patel MD Calcium [Mass/Vol] 10.3 mg/dL Normal 8.6-10.4 [facility] Comment on above: Performed By: #### YENY KNOX, BNP #### [employer] [address] [place] [address] [phone] Field Secretary: Giovany Patel MD Chloride [Moles/Vol] 94 mmol/L Low 98-107 [facility] Comment on above: Performed By: #### YENY KNOX, BNP #### [employer] [address] [place] [address] Field Secretary: Giovany Patel MD CO2 [Moles/Vol] 36 mmol/L High 20-31 [facility] Comment on above: Performed By: #### F YENY RAMOS, BNP #### [facility] [address] [place] [address] Field Secretary: Giovany Patel MD Creatinine [Mass/Vol] 0.6 mg/dL Normal 0.50-0.90 [facility] Comment on above: Performed By: #### F YENY RAMOS, BNP #### [facility] [address] [place] [address] Field Secretary: Giovany Patel MD GFR/1.73 sq M.predicted among non-blacks MDRD (S/P/Bld) [Vol rate/Area] mL/min/{1.73_m2} Normal >60 [facility] Comment on above: Result Comment: These results are not intended for use in patients <18 years of age. eGFR results are calculated without a race factor using the 2020 CKD-EPI equation. Careful clinical correlation is recommended, particularly when comparing to results calculated using previous equations. The CKD-EPI equation is less accurate in patients with extremes of muscle mass, extra-renal metabolism of creatine, excessive creatine ingestion, or following therapy that affects renal tubular secretion. Performed By: #### YENY KNOX, BNP #### [facility] [address] [place] [address] Field Secretary: Giovany Patel MD Glucose [Mass/Vol] 178 mg/dL High 74-99 [facility] Comment on above: Performed By: #### YENY KNOX, BNP #### [facility] [address] [place] [address] Field Secretary: Giovany Patel MD Potassium [Moles/Vol] 4.2 mmol/L Normal 3.7-5.3 [facility] Comment on above: Performed By: #### F YENY RAMOS, BNP #### [facility] [address] [place] [address] Field Secretary: Giovany Patel MD Sodium [Moles/Vol] 138 mmol/L Normal 136-145 [facility] Comment on above: Performed By: #### F YENY RAMOS, BNP #### [address] [address] Field Secretary: Giovany Patel MD Urea nitrogen [Mass/Vol] 13 mg/dL Normal 8-23 [facility] Comment on above: Performed By: #### F YENY RAMOS, BNP #### [address] [address] Field Secretary: Giovany Patel MD CBC with Diffon 09-09-2023 Abs. Basophil 0.03 k/uL Normal 0.00-0.20 [facility] Comment on above: Performed By: #### Michelle RESENDIZ UAX #### [address] [address] Field Secretary: Giovany Patel MD Abs.Imm.Granulocyte 0.08 k/uL Normal 0.00-0.30 [facility] Comment on above: Performed By: #### Michelle RESENDIZ UAX #### [address] [address] Field Secretary: Giovany Patel MD Abs.Neutrophil (Seg) 7.10 k/uL Normal 1.50-8.10 [facility] Comment on above: Performed By: #### Michelle RESENDIZ UAX #### [address] [address] Field Secretary: Giovany Patel MD Basophils/100 WBC (Bld) 0 % Normal 0-2 [facility] Comment on above: Performed By: #### U MARTÍN UAX #### [address] [address] Field Secretary: Giovany Patel MD Eosinophils (Bld) [#/Vol] 0.18 10*3/uL Normal 0.00-0.44 [facility] Comment on above: Performed By: #### U MARTÍN, UAX #### [place] [address] Field Secretary: Giovany Patel MD Eosinophils/100 WBC (Bld) 2 % Normal 1-4 [facility] Comment on above: Performed By: #### U MARTÍN, UAX #### [place] [address] Field Secretary: Giovany Patel MD Erythrocyte distribution width (RBC) [Ratio] 17.3 % High 11.8-14.4 [facility] Comment on above: Performed By: #### Michelle RESENDIZ UAX #### [place] [address] Field Secretary: Giovany Patel MD Hematocrit (Bld) [Volume fraction] 30.2 % Low 36.3-47.1 [facility] Comment on above: Performed By: #### Michelle RESENDIZ UAX #### [place] [address] Field Secretary: Giovany Patel MD Hemoglobin (Bld) [Mass/Vol] 8.8 g/dL Low 11.9-15.1 [facility] Comment on above: Performed By: #### U MARTÍN UAX #### [place] [address] Field Secretary: Giovany Patel MD Immature granulocytes/100 WBC (Bld) 1 % High 0 [facility] Comment on above: Performed By: #### U MARTÍN, UAX #### [place] [address] Field Secretary: Giovany Patel MD Lymphocytes (Bld) [#/Vol] 1.55 10*3/uL Normal 1.10-3.70 [facility] Comment on above: Performed By: #### U MARTÍN, UAX #### [facility] [address] [place] [address] Field Secretary: Giovany Patel MD Lymphocytes/100 WBC (Bld) 16 % Low 24-43 [facility] Comment on above: Performed By: #### U MARTÍN, UAX #### [address] [address] Field Secretary: Giovany Patel MD MCH (RBC) [Entitic mass] 29.0 pg Normal 25.2-33.5 [facility] Comment on above: Performed By: #### U MARTÍN UAX #### [address] [address] Field Secretary: Giovany Patel MD MCHC (RBC) [Mass/Vol] 29.1 g/dL Normal 28.4-34.8 [facility] Comment on above: Performed By: #### U MARTÍN, UAX #### [address] [address] Field Secretary: Giovany Patel MD MCV (RBC) [Entitic vol] 99.7 fL Normal 82.6-102.9 [facility] Comment on above: Performed By: #### U MARTÍN UAX #### [address] [address] Field Secretary: Giovany Patel MD Monocytes (Bld) [#/Vol] 0.95 10*3/uL Normal 0.10-1.20 [facility] Comment on above: Performed By: #### U MARTÍN UAX #### [address] [address] Field Secretary: Giovany Patel MD Monocytes/100 WBC (Bld) 10 % Normal 3-12 [facility] Comment on above: Performed By: #### U MARTÍN UAX #### [facility] [address] [place] [address] Field Secretary: Giovany Patel MD Neutrophil (Seg) 71 % High 36-65 [facility] Comment on above: Performed By: #### U MICAO, UAX #### [address] [address] Field Secretary: Giovany Patel MD NRBC Automated 0.0 per 100 WBC Normal 0.0 [facility] Comment on above: Performed By: #### U MICAO, UAX #### [address] [address] Field Secretary: Giovany Patel MD Platelet mean volume (Bld) [Entitic vol] 8.7 fL Normal 8.1-13.5 [facility] Comment on above: Performed By: #### U CORINNEO, UAX #### [address] [address] Field Secretary: Giovany Patel MD Platelets (Bld) [#/Vol] 348 10*3/uL Normal 138-453 [facility] Comment on above: Performed By: #### U MICAO, UAX #### [address] [address] Field Secretary: Giovany Patel MD RBC (Bld) [#/Vol] 3.03 10*6/uL Low 3.95-5.11 [facility] Comment on above: Performed By: #### U MICAO, UAX #### [address] [address] Field Secretary: Giovany Patel MD RBC morphology finding Nom (Bld) ANISOCYTOSIS PRESENT Normal [facility] Comment on above: Performed By: #### U MICAO, UAX #### [address] [address] Field Secretary: Giovany Patel MD WBC (Bld) [#/Vol] 9.9 10*3/uL Normal 3.5-11.3 [facility] Comment on above: Performed By: #### Michelle RESENDIZ UAX #### [facility] [address] [place] [address] Field Secretary: Giovany Patel MD Glucose,Whole Bloodon 2023 Glucose [Mass/Vol] 189 mg/dL High 65-105 [facility] Glucose [Mass/Vol] 291 mg/dL High 65-105 [facility] Glucose [Mass/Vol] 179 mg/dL High 65-105 [facility] Basic Metab w/rfx MGon 09-07 Anion gap [Moles/Vol] 11 mmol/L Normal 9-16 [facility] Comment on above: Performed By: #### Michelle RESENDIZ UAX #### [facility] [address] [place] [address] Field Secretary: Giovany Patel MD Calcium [Mass/Vol] 9.5 mg/dL Normal 8.6-10.4 [facility] Comment on above: Performed By: #### Michelle RESENDIZ UAX #### [facility] [address] [place] [address] Field Secretary: Giovany Patel MD Chloride [Moles/Vol] 95 mmol/L Low 98-107 [facility] Comment on above: Performed By: #### Michelle RESENDIZ UAX #### [facility] [address] [place] [address] Field Secretary: Giovany Patel MD CO2 [Moles/Vol] 32 mmol/L High 20-31 [facility] Comment on above: Performed By: #### U MARTÍN UAX #### [facility] [address] [place] [address] Field Secretary: Giovany Patel MD Creatinine [Mass/Vol] 0.5 mg/dL Normal 0.50-0.90 [facility] Comment on above: Performed By: #### U MARTÍN UAX #### [facility] [address] [place] [address] Field Secretary: Giovany Patel MD GFR/1.73 sq M.predicted among non-blacks MDRD (S/P/Bld) [Vol rate/Area] mL/min/{1.73_m2} Normal >60 [facility] Comment on above: Result Comment: These results are not intended for use in patients <18 years of age. eGFR results are calculated without a race factor using the 2020 CKD-EPI equation. Careful clinical correlation is recommended, particularly when comparing to results calculated using previous equations. The CKD-EPI equation is less accurate in patients with extremes of muscle mass, extra-renal metabolism of creatine, excessive creatine ingestion, or following therapy that affects renal tubular secretion. Performed By: #### Michelle RESENDIZ UAX #### [facility] [address] [place] [address] Field Secretary: Giovany Patel MD Glucose [Mass/Vol] 173 mg/dL High 74-99 [facility] Comment on above: Performed By: #### Michelle RESENDIZ UAX #### [facility] [address] [place] [address] Field Secretary: Giovany Patel MD Potassium [Moles/Vol] 3.8 mmol/L Normal 3.7-5.3 [facility] Comment on above: Performed By: #### U MARTÍN, UAX #### [facility] [address] [place] [address] Field Secretary: Giovany Patel MD Sodium [Moles/Vol] 138 mmol/L Normal 136-145 [facility] Comment on above: Performed By: #### U MARTÍN, UAX #### [facility] [address] [place] [address] Field Secretary: Giovany Patel MD Urea nitrogen [Mass/Vol] 13 mg/dL Normal 8-23 [facility] Comment on above: Performed By: #### Michelle RESENDIZ UAX #### [facility] [address] [place] [address] Field Secretary: Giovany Patel MD CBC with Diffon 09-08-2023 Abs. Basophil 0.03 k/uL Normal 0.00-0.20 [facility] Comment on above: Performed By: #### U MARTÍN UAX #### [facility] [address] [place] [address] Field Secretary: Giovany Patel MD Abs.Imm.Granulocyte 0.13 k/uL Normal 0.00-0.30 [facility] Comment on above: Performed By: #### Michelle RESENDIZ UAX #### [address] [address] Field Secretary: Giovany Patel MD Abs.Neutrophil (Seg) 8.08 k/uL Normal 1.50-8.10 [facility] Comment on above: Performed By: #### Michelle RESENDIZ UAX #### [address] [address] Field Secretary: Giovany Patel MD Basophils/100 WBC (Bld) 0 % Normal 0-2 [facility] Comment on above: Performed By: #### U MARTÍN UAX #### [address] [address] Field Secretary: Giovany Patel MD Eosinophils (Bld) [#/Vol] 0.18 10*3/uL Normal 0.00-0.44 [facility] Comment on above: Performed By: #### U MARTÍN, UAX #### [facility] [address] [place] [address] Field Secretary: Giovany Patel MD Eosinophils/100 WBC (Bld) 2 % Normal 1-4 [facility] Comment on above: Performed By: #### U MARTÍN, UAX #### [facility] [address] [place] [address] Field Secretary: Giovany Patel MD Erythrocyte distribution width (RBC) [Ratio] 17.8 % High 11.8-14.4 [facility] Comment on above: Performed By: #### U MARTÍN, UAX #### [facility] [address] [place] [address] Field Secretary: Giovany Patel MD Hematocrit (Bld) [Volume fraction] 27.9 % Low 36.3-47.1 [facility] Comment on above: Performed By: #### U MARTÍN, UAX #### [facility] [address] [place] [address] Field Secretary: Giovany Patel MD Hemoglobin (Bld) [Mass/Vol] 8.3 g/dL Low 11.9-15.1 [facility] Comment on above: Performed By: #### U MARTÍN UAX #### [facility] [address] [place] [address] Field Secretary: Giovany Patel MD Immature granulocytes/100 WBC (Bld) 1 % High 0 [facility] Comment on above: Performed By: #### U MARTÍN UAX #### [facility] [address] [place] [address] Field Secretary: Giovany Patel MD Lymphocytes (Bld) [#/Vol] 1.55 10*3/uL Normal 1.10-3.70 [facility] Comment on above: Performed By: #### U MARTÍN, UAX #### [facility] [address] [place] [address] Field Secretary: Giovany Patel MD Lymphocytes/100 WBC (Bld) 14 % Low 24-43 [facility] Comment on above: Performed By: #### U MARTÍN, UAX #### [address] [address] Field Secretary: Giovany Patel MD MCH (RBC) [Entitic mass] 29.5 pg Normal 25.2-33.5 [facility] Comment on above: Performed By: #### U MARTÍN, UAX #### [address] [address] Field Secretary: Giovany Patel MD MCHC (RBC) [Mass/Vol] 29.7 g/dL Normal 28.4-34.8 [facility] Comment on above: Performed By: #### U MARTÍN UAX #### [address] [address] Field Secretary: Giovany Patel MD MCV (RBC) [Entitic vol] 99.3 fL Normal 82.6-102.9 [facility] Comment on above: Performed By: #### U MARTÍN UAX #### [address] [address] Field Secretary: Giovany Patel MD Monocytes (Bld) [#/Vol] 0.88 10*3/uL Normal 0.10-1.20 [facility] Comment on above: Performed By: #### U MARTÍN UAX #### [address] [address] Field Secretary: Giovany Patel MD Monocytes/100 WBC (Bld) 8 % Normal 3-12 [facility] Comment on above: Performed By: #### U MARTÍN, UAX #### [address] [address] Field Secretary: Giovany Patel MD Neutrophil (Seg) 75 % High 36-65 [facility] Comment on above: Performed By: #### U MARTÍN, UAX #### [address] [address] Field Secretary: Giovany Patel MD NRBC Automated 0.0 per 100 WBC Normal 0.0 [facility] Comment on above: Performed By: #### U MARTÍN, UAX #### [address] [address] Field Secretary: Giovany Patel MD Platelet mean volume (Bld) [Entitic vol] 8.7 fL Normal 8.1-13.5 [facility] Comment on above: Performed By: #### U MARTÍN, UAX #### [address] [address] Field Secretary: Giovany Patel MD Platelets (Bld) [#/Vol] 334 10*3/uL Normal 138-453 [facility] Comment on above: Performed By: #### U MARTÍN UAX #### [address] [address] Field Secretary: Giovany Patel MD RBC (Bld) [#/Vol] 2.81 10*6/uL Low 3.95-5.11 [facility] Comment on above: Performed By: #### U MARTÍN, UAX #### [address] [address] Field Secretary: Giovany Patel MD RBC morphology finding Nom (Bld) ANISOCYTOSIS PRESENT Normal [facility] Comment on above: Performed By: #### U MARTÍN, UAX #### [address] [address] Field Secretary: Giovany Patel MD WBC (Bld) [#/Vol] 10.9 10*3/uL Normal 3.5-11.3 [facility] Comment on above: Performed By: #### U MARTÍN, UAX #### [address] [address] Field Secretary: Giovany Patel MD Glucose,Whole Bloodon 2023 Glucose [Mass/Vol] 284 mg/dL High 65-105 [facility] Glucose [Mass/Vol] 215 mg/dL High -105 [facility] Glucose [Mass/Vol] 202 mg/dL High 65-105 [facility] Glucose [Mass/Vol] 176 mg/dL High -105 [facility] XR TOE LEFT (MIN 2 VIEWS)on 09-08-2023 XR TOE LEFT (MIN 2 VIEWS) EXAMINATION: 3 XRAY VIEWS OF THE LEFT TOE 09/08/2023 10:58 am COMPARISON: None. HISTORY: ORDERING SYSTEM PROVIDED HISTORY: toe pain. look for erythema, edema. TECHNOLOGIST PROVIDED HISTORY: toe pain. look for erythema, edema. Specify which digit to image->First (Thumb/Great Toe) Reason for Exam: big toe pain FINDINGS: Three views with attention to the great toe are submitted. There is a mildly impacted fracture of the distal 1st proximal phalanx. No intra-articular extension. No other fracture is identified. The bones are markedly osteopenic. Prominent vascular calcification. IMPRESSION: Mildly impacted fracture of the distal 1st proximal phalanx. Interpreted by: Zenon Light MD Signed by: Zenon Light MD 09/08/23 Final result Normal [facility] Basic Metab w/rfx MGon 09-06 Anion gap [Moles/Vol] 10 mmol/L Normal 9-16 [facility] Comment on above: Performed By: #### F YENY RAMOS, BNP #### [employer] [address] [place] [phone] Field Secretary: Giovany Patel MD Calcium [Mass/Vol] 10.2 mg/dL Normal 8.6-10.4 [facility] Comment on above: Performed By: #### F YENY RAMOS, BNP #### [employer] [address] [place], [place] [phone] Field Secretary: Giovany Patel MD Chloride [Moles/Vol] 98 mmol/L Normal 98-107 [facility] Comment on above: Performed By: #### F YENY RAMOS, BNP #### [facility] [address] [place] [address] Field Secretary: Giovany Patel MD CO2 [Moles/Vol] 34 mmol/L High 20-31 [facility] Comment on above: Performed By: #### F YENY RAMOS, BNP #### [facility] [address] [place] [address] Field Secretary: Giovany Patel MD Creatinine [Mass/Vol] 0.6 mg/dL Normal 0.50-0.90 [facility] Comment on above: Performed By: #### F YENY RAMOS, BNP #### [address] [address] Field Secretary: Giovany Patel MD GFR/1.73 sq M.predicted among non-blacks MDRD (S/P/Bld) [Vol rate/Area] mL/min/{1.73_m2} Normal >60 [facility] Comment on above: Result Comment: These results are not intended for use in patients <18 years of age. eGFR results are calculated without a race factor using the 2020 CKD-EPI equation. Careful clinical correlation is recommended, particularly when comparing to results calculated using previous equations. The CKD-EPI equation is less accurate in patients with extremes of muscle mass, extra-renal metabolism of creatine, excessive creatine ingestion, or following therapy that affects renal tubular secretion. Performed By: #### F YENY RAMOS, BNP #### [facility] [address] [place] [address] Field Secretary: Giovany Patel MD Glucose [Mass/Vol] 146 mg/dL High 74-99 [facility] Comment on above: Performed By: #### F YENY RAMOS, BNP #### [facility] [address] [place] [address] Field Secretary: Giovany Patel MD Potassium [Moles/Vol] 4.3 mmol/L Normal 3.7-5.3 [facility] Comment on above: Performed By: #### YENY KNOX, BNP #### [facility] [address] [place] [address] Field Secretary: Giovany Patel MD Sodium [Moles/Vol] 142 mmol/L Normal 136-145 [facility] Comment on above: Performed By: #### YENY KNOX, BNP #### [facility] [address] [place] [address] Field Secretary: Giovany Patel MD Urea nitrogen [Mass/Vol] 16 mg/dL Normal 8-23 [facility] Comment on above: Performed By: #### YENY KNOX, BNP #### [address] [address] Field Secretary: Giovany Patel MD CBC with Diffon 09-07-2023 Abs. Basophil <0.03 Normal 0.00-0.20 [facility] Comment on above: Performed By: #### YENY KNOX, BNP #### [facility] [address] [place] [address] Field Secretary: Giovany Patel MD Abs.Imm.Granulocyte 0.12 k/uL Normal 0.00-0.30 [facility] Comment on above: Performed By: #### YENY KNOX, BNP #### [facility] [address] [place] [address] Field Secretary: Giovany Patel MD Abs.Neutrophil (Seg) 8.44 k/uL High 1.50-8.10 [facility] Comment on above: Performed By: #### YENY KNOX, BNP #### [facility] [address] [place] [address] Field Secretary: Giovnay Patel MD Basophils/100 WBC (Bld) 0 % Normal 0-2 [facility] Comment on above: Performed By: #### F YENY RAMOS, BNP #### [address] [address] Field Secretary: Giovany Patel MD Eosinophils (Bld) [#/Vol] 0.20 10*3/uL Normal 0.00-0.44 [facility] Comment on above: Performed By: #### F VIPUL RAMOSBC, BNP #### [facility] [address] [place] [address] Field Secretary: Giovany Patel MD Eosinophils/100 WBC (Bld) 2 % Normal 1-4 [facility] Comment on above: Performed By: #### F YENY RAMOS, BNP #### [address] [address] Field Secretary: Giovany Patel MD Erythrocyte distribution width (RBC) [Ratio] 17.7 % High 11.8-14.4 [facility] Comment on above: Performed By: #### F YENY RAMOS, BNP #### [address] [address] Field Secretary: Giovany Patel MD Hematocrit (Bld) [Volume fraction] 29.8 % Low 36.3-47.1 [facility] Comment on above: Performed By: #### F YENY RAMOS, BNP #### [facility] [address] [place] [address] Field Secretary: Giovany Patel MD Hemoglobin (Bld) [Mass/Vol] 8.8 g/dL Low 11.9-15.1 [facility] Comment on above: Performed By: #### F VIPUL RAMOSBC, BNP #### [facility] [address] [place] [address] Field Secretary: Giovany Patel MD Immature granulocytes/100 WBC (Bld) 1 % High 0 [facility] Comment on above: Performed By: #### F YENY RAMOS, BNP #### [address] [address] Field Secretary: Giovany Patel MD Lymphocytes (Bld) [#/Vol] 1.23 10*3/uL Normal 1.10-3.70 [facility] Comment on above: Performed By: #### F YENY RAMOS, BNP #### [address] [address] Field Secretary: Giovany Patel MD Lymphocytes/100 WBC (Bld) 11 % Low 24-43 [facility] Comment on above: Performed By: #### F YENY RAMOS, BNP #### [address] [address] Field Secretary: Giovany Patel MD MCH (RBC) [Entitic mass] 29.3 pg Normal 25.2-33.5 [facility] Comment on above: Performed By: #### F YENY RAMOS, BNP #### [address] [address] Field Secretary: Giovany Patel MD MCHC (RBC) [Mass/Vol] 29.5 g/dL Normal 28.4-34.8 [facility] Comment on above: Performed By: #### F YENY RAMOS, BNP #### [address] [address] Field Secretary: Giovany Patel MD MCV (RBC) [Entitic vol] 99.3 fL Normal 82.6-102.9 [facility] Comment on above: Performed By: #### F RICHARDYENY Loza, BNP #### [address] [address] Field Secretary: Giovany Patel MD Monocytes (Bld) [#/Vol] 0.74 10*3/uL Normal 0.10-1.20 [facility] Comment on above: Performed By: #### F YENY RAMOS, BNP #### [address] [address] Field Secretary: Giovany Patel MD Monocytes/100 WBC (Bld) 7 % Normal 3-12 [facility] Comment on above: Performed By: #### F YENY RAMOS, BNP #### [facility] [address] [place] [address] Field Secretary: Giovany Patel MD Neutrophil (Seg) 79 % High 36-65 [facility] Comment on above: Performed By: #### YENY KNOX, BNP #### [facility] [address] [place] [address] Field Secretary: Giovany Patel MD NRBC Automated 0.0 per 100 WBC Normal 0.0 [facility] Comment on above: Performed By: #### YENY KNOX, BNP #### [facility] [address] [place] [address] Field Secretary: Giovany Patel MD Platelet mean volume (Bld) [Entitic vol] 8.9 fL Normal 8.1-13.5 [facility] Comment on above: Performed By: #### YENY KNOX, BNP #### [facility] [address] [place] [address] Field Secretary: Giovany Patel MD Platelets (Bld) [#/Vol] 333 10*3/uL Normal 138-453 [facility] Comment on above: Performed By: #### F YENY RAMOS, BNP #### [facility] [address] [place] [address] Field Secretary: Giovany Patel MD RBC (Bld) [#/Vol] 3.00 10*6/uL Low 3.95-5.11 [facility] Comment on above: Performed By: #### F YENY RAMOS, BNP #### [address] [address] Field Secretary: Giovany Patel MD RBC morphology finding Nom (Bld) ANISOCYTOSIS PRESENT Normal [facility] Comment on above: Performed By: #### F YENY RAMOS, BNP #### [address] [address] Field Secretary: Giovany Patel MD WBC (Bld) [#/Vol] 10.8 10*3/uL Normal 3.5-11.3 [facility] Comment on above: Performed By: #### F YENY RAMOS, BNP #### [address] [address] Field Secretary: Giovany Patel MD Glucose,Whole Bloodon 2023 Glucose [Mass/Vol] 280 mg/dL High 65-105 [facility] Glucose [Mass/Vol] 199 mg/dL High [facility]105 [facility] Glucose [Mass/Vol] 173 mg/dL High [facility]105 [facility] Glucose [Mass/Vol] 141 mg/dL High [facility]105 [facility] UA w/Reflex Cultureon 2023 Bilirubin, SemiQt,Ur Negative Normal NEG [facility] Comment on above: Performed By: #### U CORINNEO, UAX #### [facility] [address] [place] [address] Field Secretary: Giovany Patel MD Blood, Urine Negative Normal NEG [facility] Comment on above: Performed By: #### U MICAO, UAX #### [facility] [address] [place] [address] Field Secretary: Giovany Patel MD Clarity (U) Clear Normal CLEAR [facility] Comment on above: Performed By: #### U MICAO, UAX #### [facility] [address] [place] [address] Field Secretary: Giovany Patel MD Color (U) Yellow Normal YEL [facility] Comment on above: Performed By: #### U MICAO, UAX #### [facility] [address] [place] [address] Field Secretary: Giovany Patel MD Glucose Ql (U) Negative Normal NEG [facility] Comment on above: Performed By: #### U MICAO, UAX #### [facility] [address] [place] [address] Field Secretary: Giovany Patel MD Ketones Ql (U) Negative Normal NEG [facility] Comment on above: Performed By: #### U MICAO, UAX #### [address] [address] Field Secretary: Giovany Patel MD Leukocyte esterase Test strip Ql (U) SMALL Abnormal NEG [facility] Comment on above: Performed By: #### U MICAO, UAX #### [facility] [address] [place] [address] Field Secretary: Giovany Patel MD Nitrite,Ur Negative Normal NEG [facility] Comment on above: Performed By: #### U MICAO, UAX #### [facility] [address] [place] [address] Field Secretary: Giovany Patel MD PH,Ur 5.0 Normal 5.0-8.0 [facility] Comment on above: Performed By: #### U MICAO, UAX #### [facility] [address] [place] [address] Field Secretary: Giovany Patel MD Protein Ql (U) Negative Normal NEG [facility] Comment on above: Performed By: #### U MICAO, UAX #### [facility] [address] [place] [address] Field Secretary: Giovany Patel MD Spec. [place],Ur 1.016 Normal 1.005-1.030 [facility] Comment on above: Performed By: #### U MICAO, UAX #### [address] [address] Field Secretary: Giovany Patel MD Urobilinogen,Ur Normal Normal 0.0-1.0 [facility] Comment on above: Performed By: #### U MICAO, UAX #### [address] [address] Field Secretary: Giovany Patel MD Urinalysis,Microon 4 Bacteria None Normal NONE [facility] Comment on above: Performed By: #### U CORINNEO, UAX #### [address] [address] Field Secretary: Giovany Patel MD Casts 0 TO 2 HYALINE Normal 0-8 [facility] Comment on above: Result Comment: Refe rence range defined for non-centrifuged specimen. Performed By: #### U MICAO, UAX #### [address] [address] Field Secretary: Giovany Patel MD Epithelial cells LM Ql (Urine sed) None Normal 0-5 [facility] Comment on above: Performed By: #### U MICAO, UAX #### [facility] [address] [place] [address] Field Secretary: Giovany Patel MD Urine RBC's None Normal 0-4 [facility] Comment on above: Result Comment: Refe rence range defined for non-centrifuged specimen. Performed By: #### U MICAO, UAX #### [address] [address] Field Secretary: Giovany Patel MD Urine WBC's 2 TO 5 Normal 0-5 [facility] Comment on above: Performed By: #### U MARTÍN UAX #### [address] [address] Field Secretary: Giovany Patel MD Basic Metabolic Profon 09-05 Anion gap [Moles/Vol] 8 mmol/L Low 9-16 [facility] Comment on above: Performed By: #### U MARTÍN UAX #### [address] [address] Field Secretary: Giovany Patel MD Calcium [Mass/Vol] 9.1 mg/dL Normal 8.6-10.4 [facility] Comment on above: Performed By: #### Michelle RESENDIZ UAX #### [address] [address] Field Secretary: Giovany Patel MD Chloride [Moles/Vol] 96 mmol/L Low 98-107 [facility] Comment on above: Performed By: #### U MARTÍN UAX #### [address] [address] Field Secretary: Giovany Patel MD CO2 [Moles/Vol] 35 mmol/L High 20-31 [facility] Comment on above: Performed By: #### U MARTÍN UAX #### [address] [address] Field Secretary: Giovany Patel MD Creatinine [Mass/Vol] 0.5 mg/dL Normal 0.50-0.90 [facility] Comment on above: Performed By: #### U MARTÍN, UAX #### [address] [address] Field Secretary: Giovany Patel MD GFR/1.73 sq M.predicted among non-blacks MDRD (S/P/Bld) [Vol rate/Area] mL/min/{1.73_m2} Normal >60 [facility] Comment on above: Result Comment: These results are not intended for use in patients <18 years of age. eGFR results are calculated without a race factor using the 2020 CKD-EPI equation. Careful clinical correlation is recommended, particularly when comparing to results calculated using previous equations. The CKD-EPI equation is less accurate in patients with extremes of muscle mass, extra-renal metabolism of creatine, excessive creatine ingestion, or following therapy that affects renal tubular secretion. Performed By: #### U MARTÍN, UAX #### [facility] [address] [place] [address] Field Secretary: Giovany Patel MD Glucose [Mass/Vol] 123 mg/dL High 74-99 [facility] Comment on above: Performed By: #### U MARTÍN UAX #### [facility] [address] [place] [address] Field Secretary: Giovany Patel MD Potassium [Moles/Vol] 4.4 mmol/L Normal 3.7-5.3 [facility] Comment on above: Performed By: #### U MARTÍN UAX #### [facility] [address] [place] [address] Field Secretary: Giovany Patel MD Sodium [Moles/Vol] 139 mmol/L Normal 136-145 [facility] Comment on above: Performed By: #### U MARTÍN UAX #### [facility] [address] [place] [address] Field Secretary: Giovany Patel MD Urea nitrogen [Mass/Vol] 18 mg/dL Normal 8-23 [facility] Comment on above: Performed By: #### U MARTÍN, UAX #### [facility] [address] [place] [address] Field Secretary: Giovany Patel MD Anion gap [Moles/Vol] 10 mmol/L Normal 9-16 [facility] Comment on above: Performed By: #### B MP, TROPI #### [facility] [place] [address] Field Secretary: Giovany Patel MD Calcium [Mass/Vol] 9.8 mg/dL Normal 8.6-10.4 [facility] Comment on above: Performed By: #### B MP, TROPI #### [facility] [address] [place] [address] Field Secretary: Giovany Patel MD Chloride [Moles/Vol] 96 mmol/L Low 98-107 [facility] Comment on above: Performed By: #### B MP, TROPI #### [facility] [address] [place] [address] Field Secretary: Giovany Patel MD CO2 [Moles/Vol] 34 mmol/L High 20-31 [facility] Comment on above: Performed By: #### B MP, TROPI #### [facility] [address] [place] [address] Field Secretary: Giovany Patel MD Creatinine [Mass/Vol] 0.6 mg/dL Normal 0.50-0.90 [facility] Comment on above: Performed By: #### B MP, TROPI #### [facility] [address] [place] [address] Field Secretary: Giovany Patel MD GFR/1.73 sq M.predicted among non-blacks MDRD (S/P/Bld) [Vol rate/Area] mL/min/{1.73_m2} Normal >60 [facility] Comment on above: Result Comment: These results are not intended for use in patients <18 years of age. eGFR results are calculated without a race factor using the 2020 CKD-EPI equation. Careful clinical correlation is recommended, particularly when comparing to results calculated using previous equations. The CKD-EPI equation is less accurate in patients with extremes of muscle mass, extra-renal metabolism of creatine, excessive creatine ingestion, or following therapy that affects renal tubular secretion. Performed By: #### B PONCHO, TROPI #### [facility] [address] [place] [address] Field Secretary: Giovany Patel MD Glucose [Mass/Vol] 119 mg/dL High 74-99 [facility] Comment on above: Performed By: #### B MP, TROPI #### [facility] [address] [place] [address] Field Secretary: Giovany Patel MD Potassium [Moles/Vol] 5.2 mmol/L Normal 3.7-5.3 [facility] Comment on above: Performed By: #### B PONCHO, TROPI #### [facility] [address] [place] [address] Field Secretary: Giovany Patel MD Sodium [Moles/Vol] 140 mmol/L Normal 136-145 [facility] Comment on above: Performed By: #### B PONCHO, TROPI #### [facility] [address] [place] [address] Field Secretary: Giovany Patel MD Urea nitrogen [Mass/Vol] 21 mg/dL Normal 8-23 [facility] Comment on above: Performed By: #### B PONCHO, TROPI #### [facility] [address] [place] [address] Field Secretary: Giovany Patel MD Brain Natri. Peptideon 09-05 Natriuretic peptide B (Bld) [Mass/Vol] 2721 pg/mL High 0-300 [facility] Comment on above: Result Comment: An a ge-independent cutoff point of 300 pg/ml has a 98% negative predictive value excluding acute heart failure. Performed By: #### F RICHARD, FEBC, BNP #### [facility] [address] Field Secretary: Giovany Patel MD CBCon 09-06-2023 Erythrocyte distribution width (RBC) [Ratio] 17.7 % High 11.8-14.4 [facility] Comment on above: Performed By: #### C BC #### [address] [address] Field Secretary: Giovany Patel MD Hematocrit (Bld) [Volume fraction] 27.7 % Low 36.3-47.1 [facility] Comment on above: Performed By: #### C BC #### [address] [address] Field Secretary: Giovany Patel MD Hemoglobin (Bld) [Mass/Vol] 8.3 g/dL Low 11.9-15.1 [facility] Comment on above: Performed By: #### C BC #### [address] [address] Field Secretary: Giovany Patel MD MCH (RBC) [Entitic mass] 29.9 pg Normal 25.2-33.5 [facility] Comment on above: Performed By: #### C BC #### [address] [address] Field Secretary: Giovany Patel MD MCHC (RBC) [Mass/Vol] 30.0 g/dL Normal 28.4-34.8 [facility] Comment on above: Performed By: #### C BC #### [address] [address] Field Secretary: Giovany Patel MD MCV (RBC) [Entitic vol] 99.6 fL Normal 82.6-102.9 [facility] Comment on above: Performed By: #### C BC #### [address] [address] Field Secretary: Giovany Patel MD NRBC Automated 0.0 per 100 WBC Normal 0.0 [facility] Comment on above: Performed By: #### C BC #### [address] [address] Field Secretary: Giovany Patel MD Platelet mean volume (Bld) [Entitic vol] 8.9 fL Normal 8.1-13.5 [facility] Comment on above: Performed By: #### C BC #### [address] [address] Field Secretary: Giovany Patel MD Platelets (Bld) [#/Vol] 341 10*3/uL Normal 138-453 [facility] Comment on above: Performed By: #### C BC #### [address] [address] Field Secretary: Giovany Patel MD RBC (Bld) [#/Vol] 2.78 10*6/uL Low 3.95-5.11 [facility] Comment on above: Performed By: #### C BC #### [address] [address] Field Secretary: Giovany Patel MD WBC (Bld) [#/Vol] 12.6 10*3/uL High 3.5-11.3 [facility] Comment on above: Performed By: #### C BC #### [address] [address] Field Secretary: Giovany Patel MD Ferritinon 09-06-2023 Ferritin [Mass/Vol] 380 ng/mL High 13-150 [facility] Comment on above: Result Comment: No r eference range established for this age/gender. Performed By: #### F RICHARD, FEBC, BNP #### [address] [address] Field Secretary: Giovany Patel MD Glucose,Whole Bloodon 2023 Glucose [Mass/Vol] 112 mg/dL High 65-105 [facility] Iron Binding Cap.on 09-06-19 24 % Fe Saturation 11 % Low 20-55 [facility] Comment on above: Performed By: #### F RICHARD, FEBC, BNP #### [facility] [address] [place] [address] Field Secretary: Giovany Patel MD Iron [Mass/Vol] 24 ug/dL Low 37-145 [facility] Comment on above: Performed By: #### F RICHARD FEBC, BNP #### [facility] [address] [place] [address] Field Secretary: Giovany Patel MD Total Fe Binding Cap 209 ug/dL Low 250-450 [facility] Comment on above: Performed By: #### F RICHARD, FEBC, BNP #### [facility] [place] [address] Field Secretary: Giovany Patel MD Unbound Fe Bind Cap 185 ug/dL Normal 112-347 [facility] Comment on above: Performed By: #### F RICHARD, FEBC, BNP #### [facility] [address] [place] [address] Field Secretary: Giovany Patel MD Procalcitoninon 09-06-2023 Procalcitonin 0.08 ng/mL Normal 0.00-0.09 [facility] Comment on above: Result Comment: Suspected Sepsis: <0.50 ng/mL Low likelihood of sepsis. 0.50-2.00 ng/mL Increased likelihood of sepsis. Antibiotics encouraged. >2.00 ng/mL High risk of sepsis/shock. Antibiotics strongly encouraged. Suspected Lower Resp Tract Infections: <0.24 ng/mL Low likelihood of bacterial infection. >0.24 ng/mL Increased likelihood of bacterial infection. Antibiotics encouraged. With successful antibiotic therapy, PCT levels should decrease rapidly. (Half-life of 24 to 36 hours.) Procalcitonin values from samples collected within the first 6 hours of systemic infection may still be low. Retesting may be indicated. Values from day 1 and day 4 can be entered into the Change in Procalcitonin Calculator ([email or web address]-dup-[email or web address]) to determine the patient's Mortality Risk Prognosis In healthy neonates, plasma Procalcitonin (PCT) concentrations increase gradually after , reaching peak values at about 24 hours of age then decrease to normal values below 0.5 ng/mL by 48-72 hours of age. Performed By: #### U MICAO, UAX #### [facility] [address] [place], [place] [id number] Field Secretary: Giovany Patel MD Troponinon 09-06-2023 Troponin, High Sens 20 ng/L High 014 [facility] Comment on above: Result Comment: High Sensitivity Troponin values cannot be compared with other Troponin methodologies. Performed By: #### U MICAO, UAX #### [facility] [address] [place], [place] [phone] Field Secretary: Giovany Patel MD Troponin, High Sens 21 ng/L High 014 [facility] Comment on above: Result Comment: High Sensitivity Troponin values cannot be compared with other Troponin methodologies. Performed By: #### U MICAO, UAX #### [facility] [address] [place], [place] [id number] Field Secretary: Giovany Patel MD XR CHEST PORTABLEon 09-06-19 XR CHEST PORTABLE EXAMINATION: ONE XRAY VIEW OF THE CHEST 09/06/2023 7:52 pm COMPARISON: None. HISTORY: ORDERING SYSTEM PROVIDED HISTORY: shortness of breath, r/o PNA TECHNOLOGIST PROVIDED HISTORY: shortness of breath, r/o PNA FINDINGS: The cardiac silhouette is enlarged. Aortic vascular calcification. Multifocal pulmonary opacification, possibly multifocal pneumonia, ARDS or pulmonary edema. There is an element of volume loss on the left with possible effusion. No pneumothorax. IMPRESSION: Multifocal opacification, possibly multifocal pneumonia, ARDS or edema. Left-sided volume loss with possible effusion. Interpreted by: Zenon Light MD Signed by: Zenon Light MD 09/06/23 Final result Normal [facility] BNPon 02-26-2022 Natriuretic peptide B (Bld) [Mass/Vol] 3520.0 pg/mL Critically high <=1,800.0 [facility] Comment on above: Performed By: #### C MP, BNP #### [facility] [address] [place] [address] Dr. Yisel Liu CBC AUTO DIFFon 02-26-2022 BASO # 0.0 103/ul Normal 0.0-0.1 [facility] Comment on above: Performed By: #### C BC #### [facility] [address] [place] [address] Dr. Yisel iLu Basophils/100 WBC (Bld) 0.1 % Critically low 0.2-2.0 [facility] Comment on above: Performed By: #### C BC #### [facility] [address] [place] [address] Dr. Yisel Liu EO # 0.0 103/ul Normal 0.0-0.7 [facility] Comment on above: Performed By: #### C BC #### [facility] [address] [place] [address] Dr. Yisel Liu Eosinophils/100 WBC (Bld) 0.0 % Critically low 0.9-7.0 [facility] Comment on above: Performed By: #### C BC #### [facility] [address] [place] [address] Dr. Yisel Liu Erythrocyte distribution width (RBC) [Ratio] 16.6 % Critically high 11.0-15.0 [facility] Comment on above: Performed By: #### C BC #### [facility] [address] [place] [address] Dr. Yisel Liu Hematocrit (Bld) [Volume fraction] 36.2 % Normal 36.0-48.0 [facility] Comment on above: Performed By: #### C BC #### [facility] [address] [place] [address] Dr. Yisel Liu Hemoglobin (Bld) [Mass/Vol] 11.1 g/dL Critically low 12.0-16.0 [facility] [place] Comment on above: Performed By: #### C BC #### [facility] [address] [place] [address] Dr. Yisel Liu IG # 0.14 10e3/ul Critically high 0.00-0.03 [facility] Comment on above: Performed By: #### C BC #### [facility] [address] [place] [address] Dr. Yisel Liu IG % 1.0 % Critically high 0.0-0.5 [facility] Comment on above: Performed By: #### C BC #### [facility] [address] [place] [address] Dr. Yisel Liu LYMPH # 0.8 103/ul Critically low 1.2-3.8 [facility] Comment on above: Performed By: #### C BC #### [facility] [address] [place] [address] Dr. Yisel Liu Lymphocytes/100 WBC (Bld) 5.9 % Critically low 20.5-60.0 [facility] [place] Comment on above: Performed By: #### C BC #### [facility] [address] [place] [address] Dr. Yisel Liu MANUAL DIFF REQ NO Normal [facility] Comment on above: Performed By: #### C BC #### [facility] [address] [place] [address] Dr. Yisel Liu MCH (RBC) [Entitic mass] 28.0 pg Normal 26.7-34.0 [facility] [place] Comment on above: Performed By: #### C BC #### [facility] [address] [place] [address] Dr. Yisel Liu MCHC (RBC) [Mass/Vol] 30.7 g/dL Normal 29.9-35.2 [facility] [place] Comment on above: Performed By: #### C BC #### [facility] [address] [place] [address] Dr. Yisel Liu MCV (RBC) [Entitic vol] 91.2 fL Normal 81.0-99.0 [facility] [place] Comment on above: Performed By: #### C BC #### [facility] [address] [place] [address] Dr. Yisel Liu MONO # 1.0 103/ul Critically high 0.3-0.8 [facility] Comment on above: Performed By: #### C BC #### [facility] [address] [place] [address] Dr. Yisel Liu Monocytes/100 WBC (Bld) 7.6 % Normal 1.7-12.0 [facility] [place] Comment on above: Performed By: #### C BC #### [facility] [address] [place] [address] Dr. Yisel Liu NEUT # 11.4 103/ul Critically high 1.4-6.5 [facility] Comment on above: Performed By: #### C BC #### [facility] [address] [place] [address] Dr. Yisel Liu Neutrophils/100 WBC (Bld) 85.4 % Critically high 43.0-75.0 [facility] [place] Comment on above: Performed By: #### C BC #### [facility] [address] [place] [address] Dr. Yisel Liu Platelet mean volume (Bld) [Entitic vol] 8.8 fL Critically low 9.5-13.5 [facility] [place] Comment on above: Performed By: #### C BC #### [facility] [address] [place] [address] Dr. Yisel Liu PLT 325 103/ul Normal 150-450 [facility] Comment on above: Performed By: #### C BC #### [facility] [address] [place] [address] Dr. Yisel Liu RBC 3.97 106/ul Critically low 4.20-5.40 [facility] Comment on above: Performed By: #### C BC #### [facility] [address] [place] [address] Dr. Yisel Liu WBC 13.4 103/ul Critically high 4.0-11.0 [facility] Comment on above: Performed By: #### C BC #### [facility] [address] [place] [address] Dr. Yisel Liu PROF 14(COMP METB)on 022 Albumin [Mass/Vol] 2.7 g/dL Critically low 3.4-5.0 [facility] Comment on above: Performed By: #### C MP, BNP #### [facility] [address] [place] [address] Dr. Yisel Liu Albumin/Globulin [Mass ratio] 0.6 {ratio} Normal [facility] [place] Comment on above: Performed By: #### C MP, BNP #### [facility] [address] [address] [address] Yisel Liu ALP [Catalytic activity/Vol] 49 U/L Normal 46-116 [facility] [place] Comment on above: Performed By: #### C MP, BNP #### [facility] [address] [place] [address] Dr. Yisel Liu ALT [Catalytic activity/Vol] 28 U/L Normal 14-59 [facility] [place] Comment on above: Performed By: #### C MP, BNP #### [facility] [address] [place] [address] Dr. Yisel Liu Anion gap [Moles/Vol] 10.9 mmol/L Normal [facility] Comment on above: Performed By: #### C MP, BNP #### [facility] [address] [place] [address] Dr. Yisel Liu AST [Catalytic activity/Vol] 29 U/L Normal 15-37 [facility] [place] Comment on above: Performed By: #### C MP, BNP #### [facility] [address] [place] [address] Dr. Yisel Liu Bilirubin [Mass/Vol] 0.5 mg/dL Normal 0.2-1.0 [facility] [place] Comment on above: Performed By: #### C MP, BNP #### [facility] [address] [place] [address] Dr. Yisel Liu Calcium [Mass/Vol] 9.7 mg/dL Normal 8.5-10.1 [facility] Comment on above: Performed By: #### C MP, BNP #### [facility] [address] [place] [address] Dr. Yisel Liu Chloride [Moles/Vol] 97 mmol/L Critically low 98-107 [facility] [place] Comment on above: Performed By: #### C MP, BNP #### [facility] [address] [place] [address] Dr. Yisel Liu CO2 [Moles/Vol] 38.5 mmol/L Critically high 21.0-32.0 [facility] [place] Comment on above: Performed By: #### C MP, BNP #### [facility] [address] [place] [address] Dr. Yisel Liu Creatinine [Mass/Vol] 1.67 mg/dL Critically high 0.55-1.02 [facility] [place] Comment on above: Performed By: #### C MP, BNP #### [facility] [address] [place] [address] Dr. Yisel Liu EGFR-AF LIBERIAN 36 mL/min/1.73m2 Critically low >=60 [facility] [place] Comment on above: Performed By: #### C MP, BNP #### [facility] [address] [place] [address] Dr. Yisel Liu EGFR-NON AF LIBERIAN 30 mL/min/1.73m2 Critically low >=60 [facility] [place] Comment on above: Performed By: #### C MP, BNP #### [facility] [address] [place] [address] Dr. Yisel Liu Globulin (S) [Mass/Vol] 4.8 g/dL Normal [facility] [place] Comment on above: Performed By: #### C MP, BNP #### [facility] [address] [place] [address] Dr. Yisel Liu Glucose [Mass/Vol] 159 mg/dL Critically high 74-106 [facility] Comment on above: Performed By: #### C MP, BNP #### [facility] [address] [place] [address] Dr. Yisel Liu Potassium [Moles/Vol] 5.4 mmol/L Critically high 3.5-5.1 [facility] [place] Comment on above: Performed By: #### C MP, BNP #### [facility] [address] [place] [address] Dr. Yisel Liu Protein [Mass/Vol] 7.5 g/dL Normal 6.4-8.2 [facility] Comment on above: Performed By: #### C MP, BNP #### [facility] [address] [place] [address] Dr. Yisel Liu Sodium [Moles/Vol] 141 mmol/L Normal 136-145 [facility] Comment on above: Performed By: #### C MP, BNP #### [facility] [address] [place] [address] Dr. Yisel Liu Urea nitrogen [Mass/Vol] 61.0 mg/dL Critically high 7.0-18.0 [facility] [place] Comment on above: Performed By: #### C MP, BNP #### [facility] [address] [place] [address] Dr. Yisel Liu Urea nitrogen/Creatinine [Mass ratio] 36.5 mg/mg Normal [facility] [place] Comment on above: Performed By: #### C MP, BNP #### [facility] [address] [place] [address] Dr. Yisel Liu XR CHEST 1 Von 02-26-2022 XR CHEST 1 V EXAM: XR CHEST 1 V HISTORY: Dyspnea COMPARISON: Chest x-ray 02/25/2022 TECHNIQUE: Single frontal view chest x-ray FINDINGS: Moderate left pleural effusion and left lower lung consolidation. Scattered bilateral lung opacities. No pneumothorax or acute bony abnormality. Cardiomegaly. IMPRESSION: Moderate left pleural effusion and left lower lung consolidation, similar to prior exam. Scattered bilateral lung opacities reflect edema or infiltrates. Cardiomegaly. Electronically authenticated by: KOBI TOMAS Date: 2022-02-26 05:15 Normal [facility] BNPon 02-25-2022 Natriuretic peptide B (Bld) [Mass/Vol] 3112.0 pg/mL Critically high <=1,800.0 [facility] Comment on above: Performed By: #### P HVEN #### [facility] [address] [place] [address] Dr. Yisel Liu CBC AUTO DIFFon 02-25-2022 BASO # 0.0 103/ul Normal 0.0-0.1 [facility] Comment on above: Performed By: #### D IG #### [facility] [address] [address] [address] Yisel Liu Basophils/100 WBC (Bld) 0.1 % Critically low 0.2-2.0 [facility] [place] Comment on above: Performed By: #### D IG #### [facility] [address] [address] [address] Yisel Liu EO # 0.0 103/ul Normal 0.0-0.7 [facility] [place] Comment on above: Performed By: #### D IG #### [facility] [address] [address] [address] Yisel Liu Eosinophils/100 WBC (Bld) 0.0 % Critically low 0.9-7.0 [facility] [place] Comment on above: Performed By: #### D IG #### [facility] [address] [place] [address] Dr. Yisel Liu Erythrocyte distribution width (RBC) [Ratio] 16.7 % Critically high 11.0-15.0 [facility] [place] Comment on above: Performed By: #### D IG #### [facility] [address] [place] [address] Dr. Yisel Liu Hematocrit (Bld) [Volume fraction] 38.4 % Normal 36.0-48.0 [facility] [place] Comment on above: Performed By: #### D IG #### [facility] [address] [place] [address] Dr. Yisel Liu Hemoglobin (Bld) [Mass/Vol] 11.9 g/dL Critically low 12.0-16.0 [facility] [place] Comment on above: Performed By: #### D IG #### [facility] [address] [place] [address] Dr. Yisel Liu IG # 0.09 10e3/ul Critically high 0.00-0.03 [facility] Comment on above: Performed By: #### D IG #### [facility] [address] [address] [address] Yisel Liu IG % 0.6 % Critically high 0.0-0.5 [facility] Comment on above: Performed By: #### D IG #### [facility] [address] [address] [address] Yisel Liu LYMPH # 0.7 103/ul Critically low 1.2-3.8 [facility] Comment on above: Performed By: #### D IG #### [facility] [address] [address] [address] Yisel Liu Lymphocytes/100 WBC (Bld) 5.0 % Critically low 20.5-60.0 [facility] [place] Comment on above: Performed By: #### D IG #### [facility] [address] [place] [address] Dr. Yisel Liu MANUAL DIFF REQ NO Normal [facility] Comment on above: Performed By: #### D IG #### [facility] [address] [place] [address] Dr. Yisel Liu MCH (RBC) [Entitic mass] 28.0 pg Normal 26.7-34.0 [facility] [place] Comment on above: Performed By: #### D IG #### [facility] [address] [place] [address] Dr. Yisel Liu MCHC (RBC) [Mass/Vol] 31.0 g/dL Normal 29.9-35.2 [facility] [place] Comment on above: Performed By: #### D IG #### [facility] [address] [place] [address] Dr. Yisel Liu MCV (RBC) [Entitic vol] 90.4 fL Normal 81.0-99.0 [facility] [place] Comment on above: Performed By: #### D IG #### [facility] [address] [address] [address] Yisel Liu MONO # 1.2 103/ul Critically high 0.3-0.8 [facility] Comment on above: Performed By: #### D IG #### [facility] [address] [place] [address] Dr. Yisel Liu Monocytes/100 WBC (Bld) 8.1 % Normal 1.7-12.0 [facility] [place] Comment on above: Performed By: #### D IG #### [facility] [address] [address] [address] Yisel Liu NEUT # 12.2 103/ul Critically high 1.4-6.5 [facility] Comment on above: Performed By: #### D IG #### [facility] [address] [address] [address] Yisel Liu Neutrophils/100 WBC (Bld) 86.2 % Critically high 43.0-75.0 [facility] [place] Comment on above: Performed By: #### D IG #### [facility] [address] [address] [address] Yisel Liu Platelet mean volume (Bld) [Entitic vol] 8.8 fL Critically low 9.5-13.5 [facility] [place] Comment on above: Performed By: #### D IG #### [facility] [address] [address] [address] Yisel Liu PLT 317 103/ul Normal 150-450 [facility] [place] Comment on above: Performed By: #### D IG #### [facility] [address] [address] [address] Yisel Liu RBC 4.25 106/ul Normal 4.20-5.40 [facility] [place] Comment on above: Performed By: #### D IG #### [facility] [address] [address] [address] Yisel Liu WBC 14.1 103/ul Critically high 4.0-11.0 [facility] Comment on above: Performed By: #### D IG #### [facility] [address] [address] [address] Yisel Liu POINT OF CARE GLUCOSEon - Glucose [Mass/Vol] 312 mg/dL Critically high 74-106 [facility] Comment on above: Performed By: #### P OCGLUC #### [facility] [address] [address] [address] Yisel Liu Glucose [Mass/Vol] 94 mg/dL Normal 74-106 [facility] Comment on above: Performed By: #### D IG #### [facility] [address] [address] [address] Yisel Liu Glucose [Mass/Vol] 260 mg/dL Critically high 74-106 [facility] Comment on above: Performed By: #### C BC #### [facility] [address] [address] [address] Yisel Liu PROF 14(COMP METB)on 022 Albumin [Mass/Vol] 2.7 g/dL Critically low 3.4-5.0 [facility] Comment on above: Performed By: #### P HVEN #### [facility] [address] [place] [address] Dr. Yisel Liu Albumin/Globulin [Mass ratio] 0.5 {ratio} Normal [facility] [place] Comment on above: Performed By: #### P HVEN #### [facility] [address] [place] [address] Dr. Yisel Liu ALP [Catalytic activity/Vol] 58 U/L Normal 46-116 [facility] [place] Comment on above: Performed By: #### P HVEN #### [facility] [address] [address] [address] Yisel Liu ALT [Catalytic activity/Vol] 32 U/L Normal 14-59 [facility] [place] Comment on above: Performed By: #### P HVEN #### [facility] [address] [place] [address] Dr. Yisel Liu Anion gap [Moles/Vol] 12.3 mmol/L Normal [facility] Comment on above: Performed By: #### P HVEN #### [facility] [address] [place] [address] Dr. Yisel Liu AST [Catalytic activity/Vol] 54 U/L Critically high 15-37 [facility] [place] Comment on above: Performed By: #### P HVEN #### [facility] [address] [place] [address] Dr. Yisel Liu Bilirubin [Mass/Vol] 0.5 mg/dL Normal 0.2-1.0 [facility] [place] Comment on above: Performed By: #### P HVEN #### [facility] [address] [address] [address] Yisel Liu Calcium [Mass/Vol] 9.6 mg/dL Normal 8.5-10.1 [facility] Comment on above: Performed By: #### P HVEN #### [facility] [address] [address] [address] Yisel Liu Chloride [Moles/Vol] 96 mmol/L Critically low 98-107 [facility] [place] Comment on above: Performed By: #### P HVEN #### [facility] [address] [address] [address] Yisel Liu CO2 [Moles/Vol] 33.9 mmol/L Critically high 21.0-32.0 [facility] [place] Comment on above: Performed By: #### P HVEN #### [facility] [address] [address] [address] Yisel Liu Creatinine [Mass/Vol] 1.42 mg/dL Critically high 0.55-1.02 [facility] [place] Comment on above: Performed By: #### P HVEN #### [facility] [address] [address] [address] Yisel Liu EGFR-AF LIBERIAN 43 mL/min/1.73m2 Critically low >=60 [facility] [place] Comment on above: Performed By: #### P HVEN #### [facility] [address] [address] [address] Yisel Liu EGFR-NON AF LIBERIAN 36 mL/min/1.73m2 Critically low >=60 [facility] [place] Comment on above: Performed By: #### P HVEN #### [facility] [address] [address] [address] Yisel Liu Globulin (S) [Mass/Vol] 5.3 g/dL Normal [facility] [place] Comment on above: Performed By: #### P HVEN #### [facility] [address] [address] [address] Yisel Liu Glucose [Mass/Vol] 236 mg/dL Critically high 74-106 [facility] Comment on above: Performed By: #### P HVEN #### [facility] [address] [address] [address] Yisel Liu Potassium [Moles/Vol] 4.2 mmol/L Normal 3.5-5.1 [facility] [place] Comment on above: Performed By: #### P HVEN #### [facility] [address] [address] [address] Yisel Liu Protein [Mass/Vol] 8.0 g/dL Normal 6.4-8.2 [facility] Comment on above: Performed By: #### P HVEN #### [facility] [address] [address] [address] Yisel Liu Sodium [Moles/Vol] 138 mmol/L Normal 136-145 [facility] Comment on above: Performed By: #### P HVEN #### [facility] [address] [address] [address] Yisel Liu Urea nitrogen [Mass/Vol] 42.0 mg/dL Critically high 7.0-18.0 [facility] [place] Comment on above: Performed By: #### P HVEN #### [facility] [address] [address] [address] Yisel Liu Urea nitrogen/Creatinine [Mass ratio] 29.6 mg/mg Normal [facility] [place] Comment on above: Performed By: #### P HVEN #### [facility] [address] [address] [address] Yisel Liu XR CHEST 1 Von 02-25-2022 XR CHEST 1 V EXAM: XR CHEST 1 V HISTORY: SHORTNESS OF BREATH COMPARISON: 02/25/2022 TECHNIQUE: AP portable FINDINGS: LUNGS: Low lung volumes. Perihilar infiltrates with peribronchial thickening. Moderate left parenchymal infiltrates obscuring the hemidiaphragm and heart border. Focal opacity right midlung. Calcified tracheobronchial tree VASCULATURE: No increased pulmonary vasculature. PLEURA: No pneumothorax. Moderate left pleural effusion CARDIAC: No cardiomegaly or cardiac silhouette abnormality. MEDIASTINUM: No visible mass or adenopathy. Aortic atherosclerosis BONES: No fracture or visible bone lesion. OTHER: Negative. IMPRESSION: Moderate left lung infiltrates likely combination of parenchymal consolidation and pleural effusion Slight increase in right midlung infiltrate Electronically authenticated by: ZENON TURNER Date: 2022-02-25 13:01 Normal [facility] XR CHEST 1 V EXAMINATION: XR CHES T 1 V HISTORY: Dyspnea COMPARISON: XR chest 02/24/2022 FINDINGS: LUNGS: Mild haziness throughout right lung with increased perihilar vascular prominence and stranding. Partial collapse versus consolidation of left lung, unchanged. VASCULATURE: No increased pulmonary vasculature. PLEURA: Large left pleural effusion. CARDIAC: No cardiomegaly or cardiac silhouette abnormality. MEDIASTINUM: No visible mass or adenopathy. BONES: No fracture or visible bone lesion. OTHER: Negative. IMPRESSION: 1. Grossly stable large left pleural effusion and partial collapse versus consolidation of left lung. 2. Interval increase in right lung pulmonary edema, possibly atelectasis. Electronically authenticated by: BRITTANY YBARRA Date: 2022-02-25 06:38 Normal [facility] BNPon 02-24-2022 Natriuretic peptide B (Bld) [Mass/Vol] 3585.0 pg/mL Critically high <=1,800.0 [facility] Comment on above: Performed By: #### C MP, BNP #### [facility] [address] [place] [address] Dr. Yisel Liu CBC AUTO DIFFon 02-24-2022 BASO # 0.0 103/ul Normal 0.0-0.1 [facility] Comment on above: Performed By: #### C BC #### [facility] [address] [place] [address] Dr. Yisel Liu Basophils/100 WBC (Bld) 0.2 % Normal 0.2-2.0 [facility] Comment on above: Performed By: #### C BC #### [facility] [address] [place] [address] Dr. Yisel Liu EO # 0.0 103/ul Normal 0.0-0.7 [facility] [place] Comment on above: Performed By: #### C BC #### [facility] [address] [place] [address] Dr. Yisel Liu Eosinophils/100 WBC (Bld) 0.0 % Critically low 0.9-7.0 [facility] [place] Comment on above: Performed By: #### C BC #### [facility] [address] [place] [address] Dr. Yisel Liu Erythrocyte distribution width (RBC) [Ratio] 16.4 % Critically high 11.0-15.0 [facility] [place] Comment on above: Performed By: #### C BC #### [facility] [address] [place] [address] Dr. Yisel Liu Hematocrit (Bld) [Volume fraction] 37.7 % Normal 36.0-48.0 [facility] [place] Comment on above: Performed By: #### C BC #### [facility] [address] [place] [address] Dr. Yisel Liu Hemoglobin (Bld) [Mass/Vol] 11.8 g/dL Critically low 12.0-16.0 [facility] [place] Comment on above: Performed By: #### C BC #### [facility] [address] [place] [address] Dr. Yisel Liu IG # 0.04 10e3/ul Critically high 0.00-0.03 [facility] Comment on above: Performed By: #### C BC #### [facility] [address] [place] [address] Dr. Yisel Liu IG % 0.3 % Normal 0.0-0.5 [facility] [place] Comment on above: Performed By: #### C BC #### [facility] [address] [place] [address] Dr. Yisel Liu LYMPH # 0.6 103/ul Critically low 1.2-3.8 [facility] Comment on above: Performed By: #### C BC #### [facility] [address] [place] [address] Dr. Yisel Liu Lymphocytes/100 WBC (Bld) 4.9 % Critically low 20.5-60.0 [facility] [place] Comment on above: Performed By: #### C BC #### [facility] [address] [place] [address] Dr. Yisel Liu MANUAL DIFF REQ NO Normal [facility] Comment on above: Performed By: #### C BC #### [facility] [address] [address] [address] Yisel Liu MCH (RBC) [Entitic mass] 28.0 pg Normal 26.7-34.0 [facility] [place] Comment on above: Performed By: #### C BC #### [facility] [address] [address] [address] Yisel Liu MCHC (RBC) [Mass/Vol] 31.3 g/dL Normal 29.9-35.2 [facility] [place] Comment on above: Performed By: #### C BC #### [facility] [address] [address] [address] Yisel Liu MCV (RBC) [Entitic vol] 89.5 fL Normal 81.0-99.0 [facility] [place] Comment on above: Performed By: #### C BC #### [facility] [address] [place] [address] Dr. Yisel Liu MONO # 0.8 103/ul Normal 0.3-0.8 [facility] [place] Comment on above: Performed By: #### C BC #### [facility] [address] [address] [address] Yisel Liu Monocytes/100 WBC (Bld) 6.2 % Normal 1.7-12.0 [facility] [place] Comment on above: Performed By: #### C BC #### [facility] [address] [address] [address] Yisel Liu NEUT # 11.5 103/ul Critically high 1.4-6.5 [facility] Comment on above: Performed By: #### C BC #### [facility] [address] [address] [address] Yisel Liu Neutrophils/100 WBC (Bld) 88.4 % Critically high 43.0-75.0 [facility] [place] Comment on above: Performed By: #### C BC #### [facility] [address] [place] [address] Dr. Yisel Liu Platelet mean volume (Bld) [Entitic vol] 8.8 fL Critically low 9.5-13.5 [facility] [place] Comment on above: Performed By: #### C BC #### [facility] [address] [address] [address] Yisel Liu PLT 361 103/ul Normal 150-450 [facility] Comment on above: Performed By: #### C BC #### [facility] [address] [address] [address] Yisel Liu RBC 4.21 106/ul Normal 4.20-5.40 [facility] [place] Comment on above: Performed By: #### C BC #### [facility] [address] [place] [address] Dr. Yisel Liu WBC 13.0 103/ul Critically high 4.0-11.0 [facility] Comment on above: Performed By: #### C BC #### [facility] [address] [place] [address] Dr. Yisel Liu CULTURE URINEon 02-24-2022 CULTURE URINE Isolate 1 Escherichia coli >100,000 cfu/mL of ORGANISM 1 Escherichia coli ANTIBIOTIC M.I.C RX STATUS Ampicillin >=32 R F Ampicillin/Sulbactam >=32 R F Piperacillin/Tazobact am <=4 S F Cefazolin 16 I F Ceftazidime <=1 S F Ceftriaxone <=1 S F Ertapenem <=0.5 S F Imipenem <=0.25 S F Amikacin <=2 S F Gentamicin <=1 S F Tobramycin <=1 S F Ciprofloxacin >=4 R F Levofloxacin >=8 R F Nitrofurantoin <=16 S F Trimethoprim/Sulfamet hoxazole <=20 S F Normal [facility] Comment on above: Performed By: #### D IG #### [facility] [address] [place] [address] Dr. Yisel Liu PH VENOUS BLOODon 02-24-2022 PCO2 VENOUS 55.2 mmHg Critically high 40.0-52.0 [facility] Comment on above: Performed By: #### C BC #### [facility] [address] [place] [address] Dr. Yisel Liu pH VENOUS 7.439 Critically high 7.330-7.430 [facility] Comment on above: Performed By: #### C BC #### [facility] [address] [place] [address] Dr. Yisel Liu POINT OF CARE GLUCOSEon 12- Glucose [Mass/Vol] 232 mg/dL Critically high 74-106 [facility] Comment on above: Performed By: #### C MP, BNP #### [facility] [address] [place] [address] Dr. Yisel Liu Glucose [Mass/Vol] 198 mg/dL Critically high 74-106 [facility] Comment on above: Performed By: #### C MP, BNP #### [facility] [address] [place] [address] Dr. Yisel Liu Glucose [Mass/Vol] 270 mg/dL Critically high 74-106 [facility] Comment on above: Performed By: #### C MP, BNP #### [facility] [address] [place] [address] Dr. Yisel Liu Glucose [Mass/Vol] 324 mg/dL Critically high -106 [facility] Comment on above: Performed By: #### D IG #### [facility] [address] [place] [address] Dr. Yisel Liu PROF 14(COMP METB)on 022 Albumin [Mass/Vol] 2.9 g/dL Critically low 3.4-5.0 Th [facility] Comment on above: Performed By: #### C MP, BNP #### [facility] [address] [place] [address] Dr. Yisel Liu Albumin/Globulin [Mass ratio] 0.5 {ratio} Normal [facility] [place] Comment on above: Performed By: #### C MP, BNP #### [facility] [address] [place] [address] Dr. Yisel Liu ALP [Catalytic activity/Vol] 64 U/L Normal 46-116 [facility] [place] Comment on above: Performed By: #### C MP, BNP #### [facility] [address] [place] [address] Dr. Yisel Liu ALT [Catalytic activity/Vol] 27 U/L Normal 14-59 [facility] [place] Comment on above: Performed By: #### C MP, BNP #### [facility] [address] [place] [address] Dr. Yisel Liu Anion gap [Moles/Vol] 10.8 mmol/L Normal Th [facility] Comment on above: Performed By: #### C MP, BNP #### [facility] [address] [place] [address] Dr. Yisel Liu AST [Catalytic activity/Vol] 44 U/L Critically high 15-37 [facility] [place] Comment on above: Performed By: #### C MP, BNP #### [facility] [address] [place] [address] Dr. Yisel Liu Bilirubin [Mass/Vol] 0.4 mg/dL Normal 0.2-1.0 [facility] [place] Comment on above: Performed By: #### C MP, BNP #### [facility] [address] [place] [address] Dr. Yisel Liu Calcium [Mass/Vol] 9.2 mg/dL Normal 8.5-10.1 [facility] Comment on above: Performed By: #### C MP, BNP #### [facility] [address] [place] [address] Dr. Yisel Liu Chloride [Moles/Vol] 96 mmol/L Critically low 98-107 [facility] [place] Comment on above: Performed By: #### C MP, BNP #### [facility] [address] [place] [address] Dr. Yisel Liu CO2 [Moles/Vol] 36.6 mmol/L Critically high 21.0-32.0 [facility] [place] Comment on above: Performed By: #### C MP, BNP #### [facility] [address] [place] [address] Dr. Yisel Liu Creatinine [Mass/Vol] 1.22 mg/dL Critically high 0.55-1.02 [facility] [place] Comment on above: Performed By: #### C MP, BNP #### [facility] [address] [place] [address] Dr. Yisel Liu EGFR-AF LIBERIAN 52 mL/min/1.73m2 Critically low >=60 [facility] [place] Comment on above: Performed By: #### C MP, BNP #### [facility] [address] [address] [address] Yisel Liu EGFR-NON AF LIBERIAN 43 mL/min/1.73m2 Critically low >=60 [facility] [place] Comment on above: Performed By: #### C MP, BNP #### [facility] [address] [address] [address] Yisel Liu Globulin (S) [Mass/Vol] 5.3 g/dL Normal [facility] [place] Comment on above: Performed By: #### C MP, BNP #### [facility] [address] [place] [address] Dr. Yisel Liu Glucose [Mass/Vol] 265 mg/dL Critically high 74-106 [facility] Comment on above: Performed By: #### C MP, BNP #### [facility] [address] [place] [address] Dr. Yisel Liu Potassium [Moles/Vol] 3.4 mmol/L Critically low 3.5-5.1 [facility] [place] Comment on above: Performed By: #### C MP, BNP #### [facility] [address] [place] [address] Dr. Yisel Liu Protein [Mass/Vol] 8.2 g/dL Normal 6.4-8.2 [facility] Comment on above: Performed By: #### C MP, BNP #### [facility] [address] [place] [address] Dr. Yisel Liu Sodium [Moles/Vol] 140 mmol/L Normal 136-145 [facility] Comment on above: Performed By: #### C MP, BNP #### [facility] [address] [place] [address] Dr. Yisel Liu Urea nitrogen [Mass/Vol] 27.0 mg/dL Critically high 7.0-18.0 [facility] [place] Comment on above: Performed By: #### C MP, BNP #### [facility] [address] [address] [address] Yisel Liu Urea nitrogen/Creatinine [Mass ratio] 22.1 mg/mg Normal [facility] [place] Comment on above: Performed By: #### C MP, BNP #### [facility] [address] [place] [address] Dr. Yisel Liu T3, TOTAL (TRIIODOTHYRONINE) on 02-24-2022 T3, TOTAL 68 ng/dL Critically low 71-180 [facility] Comment on above: Performed By: #### C MP, BNP #### [facility] [address] [address] [address] Yisel Liu XR CHEST 1 Von 02-24-2022 XR CHEST 1 V EXAM: XR CHEST 1 V HISTORY: Dyspnea. COMPARISON: 02/23/2022. CT chest. TECHNIQUE: AP chest x-ray. FINDINGS: Cardiac size is unchanged. Trachea is midline. No mediastinal widening. Dense calcific plaque in the aortic arch. Persistent opacity in the left mid to lower lung suggesting atelectasis with effusion. Subtle patchy densities throughout the right lung. IMPRESSION: 1. Similar moderate to large left-sided pleural effusion. 2. Mild patchy opacity throughout the right lung could be edema or pneumonia, unchanged. Electronically authenticated by: IDANIA CUEVAS Date: 2022-02-24 07:10 Normal [facility] BNPon 02-23-2022 Natriuretic peptide B (Bld) [Mass/Vol] 3654.0 pg/mL Critically high <=1,800.0 [facility] Comment on above: Performed By: #### C MP, BNP #### [facility] [address] [place] [address] Dr. Yisel Liu CBC AUTO DIFFon 02-23-2022 BASO # 0.0 103/ul Normal 0.0-0.1 [facility] [place] Comment on above: Performed By: #### C BC #### [facility] [address] [place] [address] Dr. Yisel Liu Basophils/100 WBC (Bld) 0.0 % Critically low 0.2-2.0 [facility] [place] Comment on above: Performed By: #### C BC #### [facility] [address] [address] [address] Yisel Liu EO # 0.0 103/ul Normal 0.0-0.7 [facility] [place] Comment on above: Performed By: #### C BC #### [facility] [address] [place] [address] Dr. Yisel Liu Eosinophils/100 WBC (Bld) 0.0 % Critically low 0.9-7.0 [facility] [place] Comment on above: Performed By: #### C BC #### [facility] [address] [place] [address] Dr. Yisel Liu Erythrocyte distribution width (RBC) [Ratio] 16.2 % Critically high 11.0-15.0 [facility] [place] Comment on above: Performed By: #### C BC #### [facility] [address] [place] [address] Dr. Yisel Liu Hematocrit (Bld) [Volume fraction] 36.1 % Normal 36.0-48.0 [facility] [place] Comment on above: Performed By: #### C BC #### [facility] [address] [place] [address] Dr. Yisel Liu Hemoglobin (Bld) [Mass/Vol] 11.5 g/dL Critically low 12.0-16.0 [facility] [place] Comment on above: Performed By: #### C BC #### [facility] [address] [place] [address] Dr. Yisel Liu IG # 0.01 10e3/ul Normal 0.00-0.03 [facility] [place] Comment on above: Performed By: #### C BC #### [facility] [address] [place] [address] Dr. Yisel Liu IG % 0.2 % Normal 0.0-0.5 [facility] Comment on above: Performed By: #### C BC #### [facility] [address] [place] [address] Dr. Yisel Liu LYMPH # 0.5 103/ul Critically low 1.2-3.8 [facility] Comment on above: Performed By: #### C BC #### [facility] [address] [place] [address] Dr. Yisel Liu Lymphocytes/100 WBC (Bld) 9.7 % Critically low 20.5-60.0 [facility] [place] Comment on above: Performed By: #### C BC #### [facility] [address] [place] [address] Dr. Yisel Liu MANUAL DIFF REQ NO Normal [facility] Comment on above: Performed By: #### C BC #### [facility] [address] [place] [address] Dr. Yisel Liu MCH (RBC) [Entitic mass] 28.4 pg Normal 26.7-34.0 [facility] Comment on above: Performed By: #### C BC #### [facility] [address] [place] [address] Dr. Yisel Liu MCHC (RBC) [Mass/Vol] 31.9 g/dL Normal 29.9-35.2 [facility] Comment on above: Performed By: #### C BC #### [facility] [address] [place] [address] Dr. Yisel Liu MCV (RBC) [Entitic vol] 89.1 fL Normal 81.0-99.0 [facility] [place] Comment on above: Performed By: #### C BC #### [facility] [address] [place] [address] Dr. Yisel Liu MONO # 0.2 103/ul Critically low 0.3-0.8 [facility] Comment on above: Performed By: #### C BC #### [facility] [address] [place] [address] Dr. Yisel Liu Monocytes/100 WBC (Bld) 3.6 % Normal 1.7-12.0 [facility] Comment on above: Performed By: #### C BC #### [facility] [address] [place] [address] Dr. Yisel Liu NEUT # 4.8 103/ul Normal 1.4-6.5 [facility] Comment on above: Performed By: #### C BC #### [facility] [address] [address] [address] Yisel Liu Neutrophils/100 WBC (Bld) 86.5 % Critically high 43.0-75.0 [facility] [place] Comment on above: Performed By: #### C BC #### [facility] [address] [place] [address] Dr. Yisel Liu Platelet mean volume (Bld) [Entitic vol] 9.0 fL Critically low 9.5-13.5 [facility] [place] Comment on above: Performed By: #### C BC #### [facility] [address] [address] [address] Yisel Liu PLT 278 103/ul Normal 150-450 [facility] [place] Comment on above: Performed By: #### C BC #### [facility] [address] [address] [address] Yisel Liu RBC 4.05 106/ul Critically low 4.20-5.40 [facility] Comment on above: Performed By: #### C BC #### [facility] [address] [place] [address] Dr. Yisel Liu WBC 5.6 103/ul Normal 4.0-11.0 [facility] [place] Comment on above: Performed By: #### C BC #### [facility] [address] [place] [address] Dr. Yisel Liu ECHOCARDIO M/2D COMPLETEon 1 04-26-2021 ECHOCARDIO M/2D COMPLETE Patient: NAVEED PRADO Exam Date: 02/23/2022 : 1945 Gender:F Ordering : DR KARY CATHERINE . Admission #: [id number] Family : Order #: [id number] CLICK HERE TO VIEW EXAM ECHOCARDIOGRAM REPORT PROCEDURE: CARDIO PULMONARY ECHOCARDIO M/2D COMP INDICATIONS: Confusion, Hypotension, Elevated BNP, Afib w/RVR COMPARISON: None. DESCRIPTION: COMPLETE ECHOCARDIOGRAM Real-time transthoracic echocardiography with 2D, M-mode, spectral and color flow Doppler performed. QUALITY: Technical quality was good. LEFT VENTRICLE: Normal chamber size. Thickened septal wall. LV EF: Global left ventricular systolic function is hyperdynamic; visually estimated ejection fraction is 65 to 70%. No significant wall motion abnormalities noted. DIASTOLIC: Not adequately assessed due to heart rhythm. ATRIAL SEPTUM: Inadequately seen. LEFT ATRIUM: Mild dilatation. RIGHT ATRIUM: Mild dilatation. RIGHT VENTRICLE: Normal chamber size. Normal right ventricular systolic function. TRICUSPID VALVE: Normal mobility and thickness. No stenosis with mild regurgitation. No evidence of pulmonary hypertension. RVSP 25mmHg MITRAL VALVE: Normal mobility and thickness. No mitral valve prolapse. No evidence of mitral valve stenosis. Mitral annular calcification. Mild mitral regurgitation. AORTIC VALVE: Normal trileaflet appearance. Mildly calcified aortic valve. Mildly diminished mobility. No significant aortic stenosis. Mild aortic regurgitation. AORTIC ROOT: Normal diameter and appearance. PULMONIC VALVE: Normal thickness and mobility. No stenosis. No regurgitation. PERICARDIUM: No evidence of pericardial effusion. IVC: Collapses with inspirations. Normal size. CONCLUSION: Global left ventricular systolic function is hyperdynamic; visually estimated ejection fraction is 65 to 70%. No wall motion abnormalities. Unable to assess diastolic function. Biatrial enlargement. The right ventricle is normal in size and systolic function. Mild tricuspid regurgitation. Mild mitral regurgitation. Mild aortic regurgitation. Adult Echocardiography Procedure Report Left Ventricle LVEDD (3.7 - 5.6 cm): 4.44 cm LVESD (2.2 - 4.0 cm): 2.76 cm LVIVS thickness (0.6 - 1.2 cm): 1.43 cm LVPW thickness (0.5 - 1.0 cm): 1.15 cm e': 0.08 m/s LVOT Max Gradient: 3.11 mm[Hg] Peak Velocity (LVOT): 0.88 m/s LVOT Diameter 2.04 cm Left Ventricular Ejection Fraction: 68.14 %, 68.14 % Left Atrium LA Volume Index (2D A2C): 69.50 ml, 69.50 ml Left Atrium Systolic Dimension: 4.11 cm Mitral Valve Right Ventricle RV Internal Diastolic Dimension: 2.89 cm Aorta AO Root Diam: 3.18 cm Ascending Ao Diam: 3.06 cm Aortic Valve AoV Area (Peak Joseph): 1.55 cm2, 1.55 cm2 Deceleration [place]: 1.84 m/s2 Pressure Half-Time: 561.41 ms Peak Velocity(Antegrade Flow): 1.85 m/s Peak Gradient(Antegrade Flow): 13.72 mm[Hg] Tricuspid Valve Peak Velocity (Regurgitant Flow): 2.26 m/s, 2.24 m/s, 2.34 m/s Peak Velocity: 0.49 m/s Pulmonic Valve Mean Gradient: 1.34 mm[Hg], 1.43 mm[Hg] Mean Velocity: 0.54 m/s, 0.56 m/s Peak Velocity: 0.82 m/s, 0.84 m/s, 0.89 m/s Peak Gradient: 2.66 mm[Hg], 2.84 mm[Hg], 3.14 mm[Hg] Right Atrium Right Atrium Systolic Pressure: 39.08 ml, 39.08 ml Dictated by: Pascual Hill M.D. on 02/25/2022 at 12:48 Approved by: Pascual Hill M.D. on 02/25/2022 at 12:52 Normal [facility] [place] PH VENOUS BLOODon 02-23-2022 PCO2 VENOUS 48.0 mmHg Normal 40.0-52.0 [facility] [place] Comment on above: Performed By: #### P HVEN #### [facility] [address] [place] [address] Dr. Yisel Liu pH VENOUS 7.479 Critically high 7.330-7.430 [facility] Comment on above: Performed By: #### P HVEN #### [facility] [address] [place] [address] Dr. Yisel Liu POINT OF CARE GLUCOSEon Glucose [Mass/Vol] 323 mg/dL Critically high -106 [facility] Comment on above: Performed By: #### C MP, BNP #### [facility] [address] [place] [address] Dr. Yisel Liu Glucose [Mass/Vol] 372 mg/dL Critically high -106 [facility] Comment on above: Performed By: #### C MP, BNP #### [facility] [address] [place] [address] Dr. Yisel Liu Glucose [Mass/Vol] 347 mg/dL Critically high -106 [facility] Comment on above: Performed By: #### D IG #### [facility] [address] [place], [place] [id number] Dr. Yisel Liu Glucose [Mass/Vol] 474 mg/dL Critically high 74-106 [facility] Comment on above: Performed By: #### C MP, BNP #### [facility] [address] [place] [address] Dr. Yisel Liu PROF 14(COMP METB)on 022 Albumin [Mass/Vol] 2.8 g/dL Critically low 3.4-5.0 [facility] Comment on above: Performed By: #### C MP, BNP #### [facility] [address] [place] [address] Dr. Yisel Liu Albumin/Globulin [Mass ratio] 0.5 {ratio} Normal [facility] Comment on above: Performed By: #### C MP, BNP #### [facility] [address] [place] [address] Dr. Yisel Liu ALP [Catalytic activity/Vol] 72 U/L Normal 46-116 [facility] [place] Comment on above: Performed By: #### C MP, BNP #### [facility] [address] [place] [address] Dr. Yisel Liu ALT [Catalytic activity/Vol] 14 U/L Normal 14-59 [facility] Comment on above: Performed By: #### C MP, BNP #### [facility] [address] [place] [address] Dr. Yisel Liu Anion gap [Moles/Vol] 11.3 mmol/L Normal [facility] Comment on above: Performed By: #### C MP, BNP #### [facility] [address] [place] [address] Dr. Yisel Liu AST [Catalytic activity/Vol] 23 U/L Normal 15-37 [facility] [place] Comment on above: Performed By: #### C MP, BNP #### [facility] [address] [place] [address] Dr. Yisel Liu Bilirubin [Mass/Vol] 0.5 mg/dL Normal 0.2-1.0 [facility] [place] Comment on above: Performed By: #### C MP, BNP #### [facility] [address] [address] [address] Yisel Liu Calcium [Mass/Vol] 9.0 mg/dL Normal 8.5-10.1 [facility] Comment on above: Performed By: #### C MP, BNP #### [facility] [address] [address] [address] Yisel Liu Chloride [Moles/Vol] 92 mmol/L Critically low 98-107 [facility] [place] Comment on above: Performed By: #### C MP, BNP #### [facility] [address] [address] [address] Yisel Liu CO2 [Moles/Vol] 34.8 mmol/L Critically high 21.0-32.0 [facility] Comment on above: Performed By: #### C MP, BNP #### [facility] [address] [place] [address] Dr. Yisel Liu Creatinine [Mass/Vol] 1.00 mg/dL Normal 0.55-1.02 [facility] [place] Comment on above: Performed By: #### C MP, BNP #### [facility] [address] [place] [address] Dr. Yisel Liu EGFR-AF LIBERIAN >60 Normal >=60 [facility] Comment on above: Performed By: #### C MP, BNP #### [facility] [address] [place] [address] Dr. Yisel Liu EGFR-NON AF LIBERIAN 54 mL/min/1.73m2 Critically low >=60 [facility] [place] Comment on above: Performed By: #### C MP, BNP #### [facility] [address] [place] [address] Dr. Yisel Liu Globulin (S) [Mass/Vol] 5.5 g/dL Normal [facility] [place] Comment on above: Performed By: #### C MP, BNP #### [facility] [address] [place] [address] Dr. Yisel Liu Glucose [Mass/Vol] 416 mg/dL Critically high 74-106 [facility] Comment on above: Performed By: #### C MP, BNP #### [facility] [address] [address] [address] Yisel Liu Potassium [Moles/Vol] 3.1 mmol/L Critically low 3.5-5.1 [facility] [place] Comment on above: Performed By: #### C MP, BNP #### [facility] [address] [address] [address] Yisel Liu Protein [Mass/Vol] 8.3 g/dL Critically high 6.4-8.2 [facility] Comment on above: Performed By: #### C MP, BNP #### [facility] [address] [address] [address] Yisel Liu Sodium [Moles/Vol] 135 mmol/L Critically low 136-145 Th [facility] Comment on above: Performed By: #### C MP, BNP #### [facility] [address] [place] [address] Dr. Yisel Liu Urea nitrogen [Mass/Vol] 20.0 mg/dL Critically high 7.0-18.0 [facility] Comment on above: Performed By: #### C MP, BNP #### [facility] [address] [place] [address] Dr. Yisel Liu Urea nitrogen/Creatinine [Mass ratio] 20.0 mg/mg Normal [facility] [place] Comment on above: Performed By: #### C MP, BNP #### [facility] [address] [place] [address] Dr. Yisel Liu XR CHEST 1 Von 02-23-2022 XR CHEST 1 V EXAMINATION: XR CHES T 1 V HISTORY: Dyspnea , left pleural effusion COMPARISON: XR chest 02/22/2022, 03/22/2019 FINDINGS: LUNGS: Mild haziness throughout right lung. Near-complete consolidation of left lung with only small aerated portion of the upper lobe. VASCULATURE: No increased pulmonary vasculature. PLEURA: Large left pleural effusion. CARDIAC: No cardiomegaly or cardiac silhouette abnormality. MEDIASTINUM: No visible mass or adenopathy. BONES: No fracture or visible bone lesion. OTHER: Negative. IMPRESSION: 1. Large left pleural effusion with near complete atelectatic collapse versus consolidation of left lung; not appreciably changed compared to yesterday. 2. Mild haziness throughout right lung; atelectasis versus pulmonary edema versus pneumonia. Electronically authenticated by: BRITTANY YBARRA Date: 2022-02-23 07:12 Normal [facility] AMMONIAon 02-22-2022 Ammonia (P) [Moles/Vol] 36 umol/L Critically high 11-32 [facility] [place] Comment on above: Performed By: #### C MP, BNP #### [facility] [address] [place] [address] Dr. Yisel Liu BLOOD GASES BTYon 02-22-2022 02 MODE SIMPLE MASK Normal [facility] Comment on above: Performed By: #### A BG #### [facility] [address] [place] [address] Dr. Yisel Liu ALLENS TEST Positive [facility] Comment on above: Performed By: #### A BG #### [facility] [address] [place] [address] Dr. Yisel Liu Base excess Calc (Bld) [Moles/Vol] 0.7 mmol/L Normal -2.0-2.0 [facility] [place] Comment on above: Performed By: #### A BG #### [facility] [address] [place] [address] Dr. Yisel Liu BIPAP PRESSURE Normal [facility] Comment on above: Performed By: #### A BG #### [facility] [address] [place] [address] Dr. Yisel Liu CPAP [facility] Comment on above: Performed By: #### A BG #### [facility] [address] [place] [address] Dr. Yisel Liu FIO2 [facility] Comment on above: Performed By: #### A BG #### [facility] [address] [place] [address] Dr. Yisel Liu HCO3 (Bld) [Moles/Vol] 28.8 mmol/L Critically high 22.0-26.0 [facility] [place] Comment on above: Performed By: #### A BG #### [facility] [address] [place] [address] Dr. Yisel Liu LPM 6 [facility] Comment on above: Performed By: #### A BG #### [facility] [address] [address] [address] Yisel Liu MINUTE VOLUME Normal [facility] Comment on above: Performed By: #### A BG #### [facility] [address] [place] [address] Dr. Yisel Liu Oxygen (Bld) [Partial pressure] 82.6 mm[Hg] Normal 80.0-100.0 [facility] [place] Comment on above: Performed By: #### A BG #### [facility] [address] [place] [address] Dr. Yisel Liu Oxygen saturation in Blood 93.0 % Critically low 95.0-100.0 [facility] [place] Comment on above: Performed By: #### A BG #### [facility] [address] [place] [address] Dr. Yisel Liu PCO2 74.3 mmHg Critically high 35.0-45.0 [facility] Comment on above: Performed By: #### A BG #### [facility] [address] [place] [address] Dr. Yisel Liu PEEP [facility] Comment on above: Performed By: #### A BG #### [facility] [address] [place] [address] Dr. Yisel Liu pH (Bld) 7.197 [pH] Critically low 7.350-7.450 [facility] Comment on above: Performed By: #### A BG #### [facility] [address] [place] [address] Dr. Yisel Liu PIP [facility] Comment on above: Performed By: #### A BG #### [facility] [address] [place] [address] Dr. Yisel Liu PS [facility] Comment on above: Performed By: #### A BG #### [facility] [address] [place] [address] Dr. Yisel Liu PUNCTURE SITE RR [facility] Comment on above: Performed By: #### A BG #### [facility] [address] [place] [address] Dr. Yisel Liu RATE [facility] Comment on above: Performed By: #### A BG #### [facility] [address] [place] [address] Dr. Yisel Liu VENT MODE [facility] Comment on above: Performed By: #### A BG #### [facility] [address] [place] [address] Dr. Yisel Liu [facility] Comment on above: Performed By: #### A BG #### [facility] [address] [place] [address] Dr. Yisel Liu BNPon 02-22-2022 Natriuretic peptide B (Bld) [Mass/Vol] 2771.0 pg/mL Critically high <=1,800.0 [facility] Comment on above: Performed By: #### C MP, BNP #### [facility] [address] [place] [address] Dr. Yisel Liu CARDIAC MIKEY 3-6on 2 CK [Catalytic activity/Vol] 18 U/L Critically low 26-192 [facility] [place] Comment on above: Performed By: #### C BC #### [facility] [address] [place] [address] Dr. Yisel Liu CK.MB [Mass/Vol] ng/mL Normal <=3.60 [facility] Comment on above: Performed By: #### C BC #### [facility] [address] [place] [address] Dr. Yisel Liu HSTROP 10.3 pg/mL Normal 4.0-51.3 [facility] [place] Comment on above: Result Comment: CUT- OFF POINTS HAVE BEEN ESTABLISHED BASED ON THE FOURTH UNIVERSAL DEFINITIONS OF MYOCARDIAL INFARCTION. THE UPPER REFERENCE LIMIT (URL) OF TROPONIN, DEFINED THE 99TH PERCENTILE OF cTnI DISTRIBUTION IN A REFERENCE POPULATION, HAS BEEN CONFIRMED THE DECISION THRESHOLD FOR LA DIAGNOSIS. Performed By: #### C BC #### [facility] [address] [place] [address] Dr. Yisel Liu CK [Catalytic activity/Vol] 36 U/L Normal 26-192 [facility] Comment on above: Performed By: #### C MP, BNP #### [facility] [address] [place] [address] Dr. Yisel SIMON.MB [Mass/Vol] ng/mL Normal <=3.60 [facility] Comment on above: Performed By: #### C MP, BNP #### [facility] [address] [address] [address] Yisel Liu HSTROP 9.8 pg/mL Normal 4.0-51.3 [facility] Comment on above: Result Comment: CUT- OFF POINTS HAVE BEEN ESTABLISHED BASED ON THE FOURTH UNIVERSAL DEFINITIONS OF MYOCARDIAL INFARCTION. THE UPPER REFERENCE LIMIT (URL) OF TROPONIN, DEFINED THE 99TH PERCENTILE OF cTnI DISTRIBUTION IN A REFERENCE POPULATION, HAS BEEN CONFIRMED THE DECISION THRESHOLD FOR LA DIAGNOSIS. Performed By: #### C MP, BNP #### [facility] [address] [place] [address] Dr. Yisel Liu CK [Catalytic activity/Vol] 15 U/L Critically low 26-192 [facility] Comment on above: Performed By: #### C MP, BNP #### [facility] [address] [place] [address] Dr. Yisel SIMON.MB [Mass/Vol] ng/mL Normal <=3.60 [facility] Comment on above: Performed By: #### C MP, BNP #### [facility] [address] [place] [address] Dr. Yisel Liu HSTROP 9.7 pg/mL Normal 4.0-51.3 [facility] Comment on above: Result Comment: CUT- OFF POINTS HAVE BEEN ESTABLISHED BASED ON THE FOURTH UNIVERSAL DEFINITIONS OF MYOCARDIAL INFARCTION. THE UPPER REFERENCE LIMIT (URL) OF TROPONIN, DEFINED THE 99TH PERCENTILE OF cTnI DISTRIBUTION IN A REFERENCE POPULATION, HAS BEEN CONFIRMED THE DECISION THRESHOLD FOR LA DIAGNOSIS. Performed By: #### C MP, BNP #### [facility] [address] [place] [address] Dr. Yisel Liu CK [Catalytic activity/Vol] 8 U/L Critically low 26-192 [facility] Comment on above: Performed By: #### C MREP #### [facility] [address] [address] [address] Yisel Liu Performed By: #### D IG #### [facility] [address] [place] [address] Dr. Yisel Liu CK.MB [Mass/Vol] ng/mL Normal <=3.60 [facility] Comment on above: Performed By: #### C MREP #### [facility] [address] [address] [address] Yisel Liu Performed By: #### D IG #### [facility] [address] [place] [address] Dr. Yisel Liu HSTROP 9.4 pg/mL Normal 4.0-51.3 [facility] Comment on above: Result Comment: CUT- OFF POINTS HAVE BEEN ESTABLISHED BASED ON THE FOURTH UNIVERSAL DEFINITIONS OF MYOCARDIAL INFARCTION. THE UPPER REFERENCE LIMIT (URL) OF TROPONIN, DEFINED THE 99TH PERCENTILE OF cTnI DISTRIBUTION IN A REFERENCE POPULATION, HAS BEEN CONFIRMED THE DECISION THRESHOLD FOR LA DIAGNOSIS. Performed By: #### C MREP #### [facility] [address] [place] [address] Dr. Yisel Liu CARDIAC MIKEY ADMITon 022 HSTROP 11.1 pg/mL Normal 4.0-51.3 [facility] Comment on above: Result Comment: CUT- OFF POINTS HAVE BEEN ESTABLISHED BASED ON THE FOURTH UNIVERSAL DEFINITIONS OF MYOCARDIAL INFARCTION. THE UPPER REFERENCE LIMIT (URL) OF TROPONIN, DEFINED THE 99TH PERCENTILE OF cTnI DISTRIBUTION IN A REFERENCE POPULATION, HAS BEEN CONFIRMED THE DECISION THRESHOLD FOR LA DIAGNOSIS. Performed By: #### D IG #### [facility] [address] [place] [address] Dr. Yisel Liu YULI 16 ng/mL Normal 9-82 [facility] Comment on above: Performed By: #### D IG #### [facility] [address] [place] [address] Dr. Yisel Liu CBC AUTO DIFFon 02-22-2022 BASO # 0.0 103/ul Normal 0.0-0.1 [facility] Comment on above: Performed By: #### C BC #### [facility] [address] [address] [address] Yisel Liu Basophils/100 WBC (Bld) 0.2 % Normal 0.2-2.0 [facility] [place] Comment on above: Performed By: #### C BC #### [facility] [address] [place] [address] Dr. Yisel Liu EO # 0.1 103/ul Normal 0.0-0.7 [facility] [place] Comment on above: Performed By: #### C BC #### [facility] [address] [place] [address] Dr. Yisel Liu Eosinophils/100 WBC (Bld) 0.7 % Critically low 0.9-7.0 [facility] [place] Comment on above: Performed By: #### C BC #### [facility] [address] [place] [address] Dr. Yisel Liu Erythrocyte distribution width (RBC) [Ratio] 17.0 % Critically high 11.0-15.0 [facility] [place] Comment on above: Performed By: #### C BC #### [facility] [address] [place] [address] Dr. Yisel Liu Hematocrit (Bld) [Volume fraction] 33.1 % Critically low 36.0-48.0 [facility] [place] Comment on above: Performed By: #### C BC #### [facility] [address] [place] [address] Dr. Yisel Liu Hemoglobin (Bld) [Mass/Vol] 10.0 g/dL Critically low 12.0-16.0 [facility] Comment on above: Performed By: #### C BC #### [facility] [address] [place] [address] Dr. Yisel Liu IG # 0.08 10e3/ul Critically high 0.00-0.03 [facility] Comment on above: Performed By: #### C BC #### [facility] [address] [place] [address] Dr. Yisel Liu IG % 0.9 % Critically high 0.0-0.5 [facility] Comment on above: Performed By: #### C BC #### [facility] [address] [place] [address] Dr. Yisel Liu LYMPH # 0.8 103/ul Critically low 1.2-3.8 [facility] Comment on above: Performed By: #### C BC #### [facility] [address] [place] [address] Dr. Yisel Liu Lymphocytes/100 WBC (Bld) 9.2 % Critically low 20.5-60.0 [facility] Comment on above: Performed By: #### C BC #### [facility] [address] [place] [address] Dr. Yisel Liu MANUAL DIFF REQ NO Normal [facility] Comment on above: Performed By: #### C BC #### [facility] [address] [place] [address] Dr. Yisel Liu MCH (RBC) [Entitic mass] 28.3 pg Normal 26.7-34.0 [facility] Comment on above: Performed By: #### C BC #### [facility] [address] [place] [address] Dr. Yisel Liu MCHC (RBC) [Mass/Vol] 30.2 g/dL Normal 29.9-35.2 [facility] [place] Comment on above: Performed By: #### C BC #### [facility] [address] [place] [address] Dr. Yisel Liu MCV (RBC) [Entitic vol] 93.8 fL Normal 81.0-99.0 [facility] [place] Comment on above: Performed By: #### C BC #### [facility] [address] [place] [address] Dr. Yisel Liu MONO # 0.8 103/ul Normal 0.3-0.8 [facility] Comment on above: Performed By: #### C BC #### [facility] [address] [place] [address] Dr. Yisel Liu Monocytes/100 WBC (Bld) 8.7 % Normal 1.7-12.0 [facility] Comment on above: Performed By: #### C BC #### [facility] [address] [place] [address] Dr. Yisel Liu NEUT # 6.9 103/ul Critically high 1.4-6.5 [facility] Comment on above: Performed By: #### C BC #### [facility] [address] [id number] Yisel Liu Neutrophils/100 WBC (Bld) 80.3 % Critically high 43.0-75.0 [facility] Comment on above: Performed By: #### C BC #### [facility] [address] [place] [address] Dr. Yisel Liu Platelet mean volume (Bld) [Entitic vol] 8.8 fL Critically low 9.5-13.5 [facility] Comment on above: Performed By: #### C BC #### [facility] [address] [place] [address] Dr. Yisel Liu PLT 269 103/ul Normal 150-450 [facility] Comment on above: Performed By: #### C BC #### [facility] [address] [place] [address] Dr. Yisel Liu RBC 3.53 106/ul Critically low 4.20-5.40 [facility] Comment on above: Performed By: #### C BC #### [facility] [address] [place] [address] Dr. Yisel Liu WBC 8.7 103/ul Normal 4.0-11.0 [facility] Comment on above: Performed By: #### C BC #### [facility] [address] [place] [address] HEAD WO CONon 02-22-2022 CT HEAD WO CON EXAM: CT HEAD WO CON CLINICAL INDICATION: Altered mental status COMPARISON: None TECHNIQUE: Axial CT images of the brain were obtained without contrast. Dose reduction techniques were achieved by using automated exposure control and/or adjustment of mA and/or kV according to patient size and/or use of iterative reconstruction technique. FINDINGS: Brain parenchyma: No mass effect or midline shift is seen. Viramontes-white differentiation is maintained. No findings suspicious for intracranial hemorrhage. No findings suggesting acute stroke. Periventricular hypoattenuation / patchy white matter hypodensities are statistically most often related to small vessel ischemic disease. Stable focal area of encephalomalacia noted within the medial right occipital lobe likely secondary to prior infarct. Stable infarct noted within the upper ventral nathen. Ventricles and extra-axial spaces: Ventricles are concordant with sulci. No findings suggesting hydrocephalus. Visualized paranasal sinuses: No findings suggesting acute sinusitis. Mastoid air cells: Clear. Included portions of the orbits:Included portions of the orbits with no evidence of fracture or other acute pathology. Bones: No fracture is seen. Impression: 1. No acute intracranial process visualized. 2. Stable cerebral atrophic with moderate chronic small vessel ischemic disease. 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 Electronically authenticated by: KARSTEN MUJICA Date: 2022-02-22 06:27 Normal [facility] CTA CHEST WO W CONon 022 CTA CHEST WO W CON EXAMINATION: CTA CHEST WO W CON HISTORY: Dyspnea , cough, mental status change COMPARISON: Plain x-ray same day TECHNIQUE: Multi-planar CT images were created with IV contrast. Axial, Coronal, and Sagittal images. Dose reduction techniques were achieved by using automated exposure control and/or adjustment of mA and/or kV according to patient size and/or use of iterative reconstruction technique. FINDINGS: VASCULATURE: No pulmonary embolism or abnormal opacity. LUNGS: Calcified tracheobronchial tree. Near-complete consolidation and collapse of the left lung. Patchy parenchymal infiltrates throughout the right lung PLEURA: Large pleural effusion measuring 5.8 cm. No pneumothorax VIBHA: Bilateral hilar lymphadenopathy MEDIASTINUM: Pretracheal and subcarinal lymphadenopathy the largest subcarinal lymph node measures 3.1 x 1.7 cm CARDIAC: No enlargement or pericardial effusion. Heavy coronary atherosclerosis AORTA: No aortic aneurysm or dissection. Moderate atherosclerosis CHEST WALL: No mass or axillary adenopathy. BONES: No bone lesion or fracture. LIMITED ABDOMEN: Surgical clips from cholecystectomy OTHER: Negative. IMPRESSION: No central pulmonary thromboembolic disease Near-complete consolidation and collapse of the left lung with large pleural effusion Moderate right parenchymal infiltrates, consider multifocal pneumonia versus pulmonary edema Electronically authenticated by: ZENON TURNER Date: 2022-02-22 08:00 Normal [facility] CULTURE BLOODon 02-22-2022 Microscopic examination of blood, culture Culture Observations: NO GROWTH AT 5 DAYS. Normal [facility] Comment on above: Performed By: #### D IG #### [facility] [address] [place] [address] Dr. Yisel Liu Covid-19 PCR ([facility])on SARS-CoV-2 (COVID-19) RNA JACINTA+probe Ql (Unsp spec) Not detected Normal NOT DETECTED [facility] Comment on above: Result Comment: When diagnostic testing is negative, the possibility of a false negative should be considered in the context of a patient's recent exposures and the presence of clinical signs and symptoms consistent with SARS-CoV-2. This test is not yet approved or cleared by the [place] FDA. When there are no FDA-approved or cleared tests available, and other criteria are met, FDA can make tests available under an emergency access mechanism called an Emergency Use Authorization (EUA). The EUA for this test is supported by the [employer] Ex[employer] of Health and Human Service's declaration that circumstances exist to justify the emergency use of in vitro diagnostics for the detection and/or diagnosis of the virus that causes COVID-19. This EUA will remain in effect for the duration of the COVID-19 declaration justifying emergency of IVDs, unless it is terminated or revoked by the FDA (after which the test may no longer be used). Performed By: #### C BC #### [facility] [address] [place] [address] Dr. Yisel Liu DIGOXINon 02-22-2022 DIG 0.5 ng/mL Critically low 0.9-2.0 [facility] Comment on above: Performed By: #### D IG #### [facility] [address] [place] [address] Dr. Yisel Liu ER URINE PROFILEon 2 Bilirubin Ql (U) Negative Normal NEGATIVE [facility] Comment on above: Performed By: #### P HVEN #### [facility] [address] [place] [address] Dr. Yisel Liu Clarity (U) CLEAR Normal CLEAR [facility] Comment on above: Performed By: #### P HVEN #### [facility] [address] [place] [address] Dr. Yisel Liu Color (U) YELLOW Normal YELLOW [facility] Comment on above: Performed By: #### P HVEN #### [facility] [address] [place] [address] Dr. Yisel YODER A micrscopic examination will be performed if indicated. Normal [facility] Comment on above: Performed By: #### P HVEN #### [facility] [address] [place] [address] Dr. Yisel Liu Glucose Ql (U) Negative Normal NEGATIVE [facility] Comment on above: Performed By: #### P HVEN #### [facility] [address] [address] [address] Yisel Liu Hemoglobin Ql (U) Negative Normal NEGATIVE The [facility] Comment on above: Performed By: #### P HVEN #### [facility] [address] [place] [address] Dr. Yisel Liu Ketones Ql (U) TRACE Abnormal NEGATIVE [facility] Comment on above: Performed By: #### P HVEN #### [facility] [address] [place] [address] Dr. Yisel Liu LEUKOCYTES TRACE Abnormal NEGATIVE [facility] Comment on above: Performed By: #### P HVEN #### [facility] [address] [place] [address] Dr. Yisel Liu Nitrite Ql (U) Positive Abnormal NEGATIVE [facility] Comment on above: Performed By: #### P HVEN #### [facility] [address] [place] [address] Dr. Yisel Liu pH (U) 5.5 [pH] Normal 5-9 [facility] Comment on above: Performed By: #### P HVEN #### [facility] [address] [place] [address] Dr. Yisel Liu SPEC GRAVITY >=1.030 Abnormal 1.005-<=1.025 [facility] Comment on above: Performed By: #### P HVEN #### [facility] [address] [place] [address] Dr. Yisel Liu UA PROTEIN TRACE Normal NEGATIVE/ TRACE [facility] Comment on above: Performed By: #### P HVEN #### [facility] [address] [address] [address] Yisel Liu UR MICRO IND INDICATED Normal [facility] Comment on above: Performed By: #### P HVEN #### [facility] [address] [place] [address] Dr. Yisel Liu Urobilinogen Qn (U) 1.0 {Krystian'U}/dL Normal 0.2 - 1. 0 [facility] Comment on above: Performed By: #### P HVEN #### [facility] [address] [address] [address] Yisel Liu INFLUENZA A AND B AGon 02-22 INFLUBNEGH SEE BELOW Normal [facility] Comment on above: Result Comment: Nega tive for Flu B protein antigen. Infection due to Flu B cannot be ruled out. Flu B antigen in the sample may be below the detection limit of the test. Performed By: #### C MP, BNP #### [facility] [address] [place] [address] Dr. Yisel Liu INFLUENZA A AG Positive Abnormal NEGATIVE SEE COMMENT [facility] Comment on above: Performed By: #### C MP, BNP #### [facility] [address] [place] [address] Dr. Yisel Liu INFLUENZA B AG Negative Normal NEGATIVE SEE COMMENT [facility] Comment on above: Performed By: #### C MP, BNP #### [facility] [address] [place] [address] Dr. Yisel Liu INFLUPOSH SEE BELOW Normal [facility] Comment on above: Result Comment: NOTE : Live attenuated influenzae vaccine viruses can cause a positive result for a rapid influenza diagnostic test if administered up to 7 days prior to rapid testing. Performed By: #### C MP, BNP #### [facility] [address] [place] [address] Dr. Yisel Liu INTERNAL CONTROLS Within Normal Limits Normal Wi thin Normal Limits [facility] Comment on above: Performed By: #### C MP, BNP #### [facility] [address] [place] [address] Dr. Yisel Liu LACTATE/LACTIC ACIDon 2021 Lactate [Moles/Vol] 4.1 mmol/L Critically high 0.4-1.9 [facility] Comment on above: Performed By: #### C MP, BNP #### [facility] [address] [place] [address] Dr. Yisel Liu Lactate [Moles/Vol] 3.3 mmol/L Critically high 0.4-1.9 [facility] Comment on above: Performed By: #### C BC #### [facility] [address] [place] [address] Dr. Yisel Liu Lactate [Moles/Vol] 3.2 mmol/L Critically high 0.4-1.9 [facility] Comment on above: Performed By: #### C BC #### [facility] [address] [place] [address] Dr. Yisel Liu MAGNESIUMon 02-22-2022 Magnesium [Mass/Vol] 1.6 mg/dL Critically low 1.8-2.4 [facility] Comment on above: Performed By: #### C BC #### [facility] [address] [place] [address] Dr. Yisel Liu OCC BLD IMMUNOASSAYon 2021 OCCULT BLOOD Negative Normal NEGATIVE [facility] Comment on above: Performed By: #### C BC #### [facility] [address] [place] [address] Dr. Yisel Liu PH VENOUS BLOODon 02-22-2022 PCO2 VENOUS 44.3 mmHg Normal 40.0-52.0 [facility] Comment on above: Performed By: #### C MP, BNP #### [facility] [address] [place] [address] Dr. Yisel Liu pH VENOUS 7.410 Normal 7.330-7.430 [facility] Comment on above: Performed By: #### C MP, BNP #### [facility] [address] [place] [address] Dr. Yisel Liu POINT OF CARE GLUCOSEon Glucose [Mass/Vol] 313 mg/dL Critically high 74-106 [facility] Comment on above: Performed By: #### P OCGLUC #### [facility] [address] [place] [address] Dr. Yisel Liu Glucose [Mass/Vol] 240 mg/dL Critically high 74-106 [facility] Comment on above: Performed By: #### C MP, BNP #### [facility] [address] [place] [address] Dr. Yisel Liu Glucose [Mass/Vol] 226 mg/dL Critically high 74-106 [facility] Comment on above: Performed By: #### C MP, BNP #### [facility] [address] [place] [address] Dr. Yisel Liu PROF CHEM 8 (BAS METB)on Anion gap [Moles/Vol] 11.2 mmol/L Normal [facility] Comment on above: Performed By: #### D IG #### [facility] [address] [place] [address] Dr. Yisel Liu Calcium [Mass/Vol] 9.0 mg/dL Normal 8.5-10.1 [facility] Comment on above: Performed By: #### D IG #### [facility] [address] [place] [address] Dr. Yisel Liu Chloride [Moles/Vol] 100 mmol/L Normal 98-107 [facility] Comment on above: Performed By: #### D IG #### [facility] [address] [place] [address] Dr. Yisel Liu CO2 [Moles/Vol] 32.1 mmol/L Critically high 21.0-32.0 [facility] Comment on above: Performed By: #### D IG #### [facility] [address] [place] [address] Dr. Yisel Liu Creatinine [Mass/Vol] 0.71 mg/dL Normal 0.55-1.02 [facility] Comment on above: Performed By: #### D IG #### [facility] [address] [place] [address] Dr. Yisel Liu EGFR-AF LIBERIAN >60 Normal >=60 [facility] Comment on above: Performed By: #### D IG #### [facility] [address] [address] [address] Yisel Liu EGFR-NON AF LIBERIAN >60 Normal >=60 [facility] Comment on above: Performed By: #### D IG #### [facility] [address] [address] [address] Yisel Liu Glucose [Mass/Vol] 118 mg/dL Critically high 74-106 [facility] Comment on above: Performed By: #### D IG #### [facility] [address] [address] [address] Yisel Liu Potassium [Moles/Vol] 4.3 mmol/L Normal 3.5-5.1 [facility] Comment on above: Performed By: #### D IG #### [facility] [address] [address] [address] Ysiel Liu Sodium [Moles/Vol] 139 mmol/L Normal 136-145 [facility] Comment on above: Performed By: #### D IG #### [facility] [address] [address] [address] Yisel Liu Urea nitrogen [Mass/Vol] 14.0 mg/dL Normal 7.0-18.0 [facility] Comment on above: Performed By: #### D IG #### [facility] [address] [address] [address] Yisel Liu Urea nitrogen/Creatinine [Mass ratio] 19.7 mg/mg Normal [facility] Comment on above: Performed By: #### D IG #### [facility] [address] [address] [address] Yisel Liu T4on 02-22-2022 T4 [Mass/Vol] 9.40 ug/dL Normal 4.80-13.90 [facility] Comment on above: Performed By: #### C BC #### [facility] [address] [address] [address] Yisel Liu TSHon 02-22-2022 TSH 1.438 uIU/mL Normal 0.358-3.740 [facility] Comment on above: Performed By: #### C BC #### [facility] [address] [place] [address] Dr. Yisel Liu URINE MICROSCOPIC ONLYon BACTERIA LARGE Abnormal NONE SEEN [facility] Comment on above: Performed By: #### P HVEN #### [facility] [address] [place] [address] Dr. Yisel Liu Bacteria identified Cx Nom (U) INDICATED Normal [facility] Comment on above: Performed By: #### P HVEN #### [facility] [address] [place] [address] Dr. Yisel Liu CAST NONE SEEN Normal NONE SEEN [facility] Comment on above: Performed By: #### P HVEN #### [facility] [address] [place] [address] Dr. Yisel Liu Crystals LM Nom (Urine sed) NONE SEEN Normal NONE SEEN [facility] Comment on above: Performed By: #### P HVEN #### [facility] [address] [place] [address] Dr. Yisel Liu Epithelial cells LM Ql (Urine sed) FEW Abnormal NONE SEEN /RARE [facility] Comment on above: Performed By: #### P HVEN #### [facility] [address] [place] [address] Dr. Yisel Liu MUCOUS TRACE Abnormal NONE SEEN [facility] Comment on above: Performed By: #### P HVEN #### [facility] [address] [place] [address] Dr. Yisel Liu RBC 0-2 Normal 0-2 [facility] Comment on above: Performed By: #### P HVEN #### [facility] [address] [place] [address] Dr. Yisel Liu WBC (U) [#/Vol] /uL Abnormal NONE SEEN [facility] Comment on above: Performed By: #### P HVEN #### [facility] [address] [place] [address] Dr. Yisel Liu XR CHEST 1 Von 12-04-2022 XR CHEST 1 V EXAM: XR CHEST 1 V, 02/22/2022 HISTORY: Altered mental status COMPARISON: Previous x-ray from 08/17/2019 TECHNIQUE: AP upright x-ray of the chest. FINDINGS: Near complete opacification of the left hemithorax likely due to underlying consolidation, pleural effusion and atelectasis. Mild narrowing of the cardiac silhouette. Moderate atherosclerotic calcification of the thoracic aorta. Diffuse osteopenia. IMPRESSION: Consolidation left lung with pleural effusion. Electronically authenticated by: ANUSHKA FLANAGAN Date: 2022-02-22 07:17 Normal [facility] Encounters Encounter Date Encounter Type Care Provider Facility Start: 09-06-2023 End: 09-09-2023 Evaluation and management of inpatient MARY KAY MAJOR [facility] Start: 02-22-2022 End: 02-26-2022 Evaluation and management of inpatient DR KARY CATHERINE Facility: Payers Date Payer Category Payer Medicaid [id number] 1960 Medicaid [id number] 1960 Medicare [id number] 1945 Unknown [id number] 1945 Unknown [id number] Summary Purpose Family History No Family History Records FoundNo Family History Records Found Advance Directives No Advanced Directives Records FoundNo Advanced Directives Records Found Additional Source Comments INFORMATION SOURCE (unrecogn ized section and content) DATE CREATED AUTHOR 02/28/2022 [facility] DATE CREATED AUTHOR AUTHOR'S ORGANIZ ATION 09/15/2023 [facility] FOR RECORDS PERTAINING TO PATIENTS WHO ARE OR HAVE BEEN ENROLLED IN A CHEMICAL DEPENDENCY/SUBSTANCEABUSE PROGRAM, SOME INFORMATION MAY BE OMITTED. This clinical summary was aggregated from multiple sources. Caution should be exercised in using it in the provision of clinical care. This summary normalizes information from multiple sources, and as a consequence, information in this document may materially change the coding, format and clinical context of patient data. In addition, data may be omitted in some cases. CLINICAL DECISIONS SHOULD BE BASED ON THE PRIMARY CLINICAL RECORDS. [facility] [employer] [facility]. provides no warranty or guarantee of the accuracy or completeness of information in this document.
[2023-09-24 11:28] LABS: pH VBG 7.455 (7.330-7.430)
[2023-09-24 11:29] LABS: Basophils Absolute Auto 0.1 10^3/uL (0.0-0.1); Basophils Percent Auto 0.4 % (0.2-2.0); Eosinophils Absolute Auto 0.2 10^3/uL (0.0-0.7); Eosinophils Percent Auto 1.7 % (0.9-7.0); Hematocrit 35.4 % (36.0-48.0); Hemoglobin 10.4 g/dL (12.0-16.0); Immature Granulocytes Pct Auto 0.8 % (0.0-0.5); Lymphocytes Absolute Auto 1.5 10^3/uL (1.2-3.8); Lymphocytes Percent Auto 11.3 % (20.5-60.0); Mean Corpuscular HGB Conc 29.4 g/dL (29.9-35.2); Mean Corpuscular Hemoglobin 29.1 pg (26.7-34.0); Mean Corpuscular Volume 99.2 fL (81.0-99.0); Mean Platelet Volume 8.4 fL (9.5-13.5); Monocytes Absolute Auto 1.2 10^3/uL (0.3-0.8); Monocytes Percent Auto 8.8 % (1.7-12.0); Neutrophils Absolute Auto 10.3 10^3/uL (1.4-6.5); PCO2 VBG 47.3 mmHg (40.0-52.0); Platelet Count 407 10^3/uL (150-450); Red Blood Count 3.57 10^6/uL (4.20-5.40); Red Cell Distribution Width 16.8 % (11.0-15.0); White Blood Count 13.3 10^3/uL (4.0-11.0)
[2023-09-24 11:52] LABS: Alanine Aminotransferase 14 U/L (14-59); Albumin Globulin Ratio 0.5; Albumin Level 2.5 g/dL (3.4-5.0); Alkaline Phosphatase 60 U/L (46-116); Anion Gap 10.3; Aspartate Amino Transferase 17 U/L (15-37); BUN Creatinine Ratio 25.3; Bilirubin Total 0.4 mg/dL (0.2-1.0); Calcium 10.4 mg/dL (8.5-10.1); Carbon Dioxide 32.5 mmol/L (21.0-32.0); Chloride 98 mmol/L (98-107); Estimated GFR (African America >60 (>=60); Estimated GFR (Non-African Ame >60 (>=60); Globulin 5.4 g/dL; Glucose 130 mg/dL (74-106); Potassium 4.8 mmol/L (3.5-5.1); Sodium 136 mmol/L (136-145); Total Protein 7.9 g/dL (6.4-8.2); Troponin I High Sensitivity 8.8 pg/mL (4.0-51.3)
[2023-09-24 11:57] LABS: Lactate/Lactic Acid 2.1 mmol/L (0.4-2.0)
--- NOTE | 2023-09-24 12:00 | CT_ITS ---
[address] [address] Patient Name: NAVEED PRADO MRN: [id number] date: 1945 Sex: F Assigned Patient Location: ER Current Patient Location: Accession/Order Number: [id number] Exam Date: 09/24/2023 12:18 Report Date: 09/24/2023 12:44 At the request of: LUKASZ HERNADEZ Procedure: CT chest wo con EXAMINATION: CT chest wo con HISTORY: dyspnea ; large left pleural effusion COMPARISON: XR chest 09/24/2023, CTA chest 02/22/2022 TECHNIQUE: Axial, Coronal, and Sagittal images were created without the administration of IV contrast material. Dose reduction techniques were achieved by using automated exposure control and/or adjustment of mA and/or kV according to patient size and/or use of iterative reconstruction technique. FINDINGS: LUNGS: Moderate infiltrates versus atelectasis throughout right lung. Partial collapse of left upper lobe and complete collapse of left lower lobe. Dense calcification of the lobar and segmental bronchi bilaterally. No appreciable bronchial obstruction. PLEURA: Large left pleural effusion. VASCULATURE: Prominent pulmonary arteries suggesting pulmonary hypertension. VIBHA: Mild adenopathy. MEDIASTINUM: Mild adenopathy. CARDIAC: Cardiomegaly. No pericardial effusion. Coronary Artery calcifications: Coronary calcifications are heavy. AORTA: No aneurysm or dissection. CHEST WALL: No mass or axillary adenopathy BONES: No acute bone abnormality. Generalized osteopenia. LIMITED ABDOMEN: No suspicious findings. Limited images of the upper abdomen. OTHER: Negative. CT/CT chest wo con IMPRESSION: 1. Large left pleural effusion with collapse of left lower lobe and partial collapse of left upper lobe. Similar findings were present on 02/22/2022. Interval chest x-rays since that time show that there has been some improvement at times, but findings are relatively stable and chronic. 2. Moderate infiltrates versus atelectasis fairly uniformly distributed throughout the right lung; not significantly changed. 3. Grossly stable cardiomegaly. Electronically authenticated by: BRITTANY YBARRA Date: 09/24/2023 12:44
[2023-09-24 13:12] LABS: Bilirubin Urine NEGATIVE (NEGATIVE); Blood Urine NEGATIVE (NEGATIVE); Clarity Urine CLEAR (CLEAR); Glucose Urine UA NEGATIVE (NEGATIVE); Ketones Urine TRACE mg/dL (NEGATIVE); Leukocyte Esterase Urine NEGATIVE (NEGATIVE); Nitrite Urine NEGATIVE (NEGATIVE); Protein Urine TRACE mg/dL (NEG/TRACE); Urobilinogen Urine 0.2 EU/dL (0.2-1.0); pH Urine 6.5 (5.0-9.0)
[2023-09-24 13:13] LABS: Color Urine DK YELLOW (YELLOW); Urine Microscopic Indicated NO
[2023-09-24 13:53] LABS: Glucometer 117 mg/dL (74-106)
== END 2023-09-24 17:43 | disposition home or self-care (01) ==
PROVIDERS: Emergency Provider Emergency Medicine Emergency Medical Services; PCP Internal Medicine
DX: I48.91 Unspecified atrial fibrillation (principal); Z99.81 Dependence on supplemental oxygen; E66.01 Morbid (severe) obesity due to excess calories; Z68.27 Body mass index [BMI] 27.0-27.9, adult
CPT/HCPCS: 36415; 71045; 71250; 80053; 81003; 82800; 82948; 83605; 83880; 84484; 85025; 93005; 99285

== ENCOUNTER 2023-10-06 10:51 | Emergency (ER) | payer MEDICARE, MEDICAID, SELFPAY ==
[2023-10-06] VITALS (77 sets, daily range): BP systolic 101–114; BP diastolic 61–84; PULSE 95–137; TEMP 36.4–36.6; O2SAT 88–98; BMI 29.1
--- NOTE | 2023-10-06 11:25 | ECG_ITS ---
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: : 1945 Requested By: MARY KAY MAJOR Order Number: [id number] Reading MD: KARY CATHERINE Measurements Intervals [place] Rate: 63 P: -5 CO: 234 QRS: 66 QRSD: 96 T: -3 QT: 316 QTc: 323 Interpretive Statements 1100 Sinus rhythm 1474 with frequent supraventricular premature complexes 2231 First degree AV block 2440 Incomplete right bundle branch block 3613 Cannot rule out inferior myocardial infarction, probably old 7300 Indeterminate axis 8305 Short QTc interval 9150 abnormal ECG Compared to ECG 09/24/2023 10:07:25 First degree AV block now present Incomplete right bundle-branch block now present Myocardial infarct finding now present Indeterminate axis now present Electronically Signed On 10-07-2023 5:24:15 EDT by KARY CATHERINE
--- OUTSIDE RECORDS SUMMARY | 2023-10-06 11:26 | XMS_ITS | CCD ---
Author Organization [facility] Inform ion Partnership [facility] Care Team Providers Care Engineering Manager Name Role Phone FLORIN, DR PRESTON Attending [...] source) Allopurinol Drug Allergy 05-22-19 14 [facility] (1 source) Aspirin Drug Allergy 05-22-19 14 [facility] (1 source) buPROPion Drug Allergy 09-26-19 17 [facility] (1 source) DULoxetine Drug Allergy 01-27-20 16 [facility] (1 source) FLUoxetine Drug Allergy 09-26-19 17 [facility] (1 source) hydroCHLOROthiazide Drug Allergy 05-22-19 14 [facility] (1 source) lamoTRIgine Drug Allergy 09-26-19 17 [facility] (1 source) Penicillins Drug allergy (disorder) 05-22-19 14 [facility] (1 source) pregabalin Drug Allergy 05-22-19 14 [facility] (1 source) Sertraline Drug Allergy 01-27-20 16 [facility] (1 source) Sulfonamides (Antibiotic) Drug allergy (disorder) 05-22-19 14 [facility] Problems Problem Classification Problem Date [...] disease (1 source) Atherosclerotic heart disease of [place] coronary artery without angina pectoris; 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] Onset: 02-24-2022 Chronic [...] 02-24-2022 Episodic Other aftercare (1 source) Other snf (current) drug therapy; Translations: [OTH SENIOR CARE CURRENT DRUG THERAPY] Onset: 02-24-2022 Episodic Other [...] Anion gap [Moles/Vol] 8 mmol/L Low 9-16 [facility] Comment on above: Performed By: #### YENY KNOX, BNP #### [facility] [address] [place] [address] [phone] Curling Machine Operator: Giovany Patel MD Calcium [Mass/Vol] 10.3 mg/dL Normal 8.6-10.4 [facility] Comment on above: Performed By: #### YENY KNOX, BNP #### [facility] [address] [place] [address] [phone] Curling Machine Operator: Giovany Patel MD Chloride [Moles/Vol] 94 mmol/L Low 98-107 [facility] Comment on above: Performed By: #### YENY KNOX, BNP #### [facility] [address] [place] [phone] Curling Machine Operator: Giovany Patel MD CO2 [Moles/Vol] 36 mmol/L High 20-31 [facility] Comment on above: Performed By: #### F YENY RAMOS, BNP #### [facility] [address] [place] [phone] Curling Machine Operator: Giovany Patel MD Creatinine [Mass/Vol] 0.6 mg/dL Normal 0.50-0.90 [facility] Comment on above: Performed By: #### F YENY RAMOS, BNP #### [facility] [address] [place] [address] Curling Machine Operator: Giovany Patel MD GFR/1.73 sq M.predicted among non-blacks MDRD (S/P/Bld) [Vol rate/Area] mL/min/{1.73_m2} Normal >60 [facility] Comment on above: Result Comment: These [...] BNP #### [facility] [address] [place] [phone] Curling Machine Operator: Giovany Patel MD Glucose [Mass/Vol] 178 mg/dL High 74-99 [facility] Comment on above: Performed By: #### YENY KNOX, BNP #### [facility] [address] [place] [address] Curling Machine Operator: Giovany Patel MD Potassium [Moles/Vol] 4.2 mmol/L Normal 3.7-5.3 [facility] Comment on above: Performed By: #### F YENY RAMOS, BNP #### [facility] [address] [place] [address] Curling Machine Operator: Giovany Patel MD Sodium [Moles/Vol] 138 mmol/L Normal 136-145 [facility] Comment on above: Performed By: #### F YENY RAMOS, BNP #### [address] [address] Curling Machine Operator: Giovany Patel MD Urea nitrogen [Mass/Vol] 13 mg/dL Normal 8-23 [facility] Comment on above: Performed By: #### F YENY RAMOS, BNP #### [address] [address] Curling Machine Operator: Giovany Patel MD CBC with Diffon 09-09-2023 Abs. Basophil 0.03 k/uL Normal 0.00-0.20 [facility] Comment on above: Performed By: #### Michelle RESENDIZ UAX #### [address] [address] Curling Machine Operator: Giovany Patel MD Abs.Imm.Granulocyte 0.08 k/uL Normal 0.00-0.30 [facility] Comment on above: Performed By: #### Michelle RESENDIZ UAX #### [address] [address] Curling Machine Operator: Giovany Patel MD Abs.Neutrophil (Seg) 7.10 k/uL Normal 1.50-8.10 [facility] Comment on above: Performed By: #### Michelle RESENDIZ UAX #### [address] [address] Curling Machine Operator: Giovany Patel MD Basophils/100 WBC (Bld) 0 % Normal 0-2 [facility] Comment on above: Performed By: #### U MARTÍN UAX #### [address] [address] Curling Machine Operator: Giovany Patel MD Eosinophils (Bld) [#/Vol] 0.18 10*3/uL Normal 0.00-0.44 [facility] Comment on above: Performed By: #### U MARTÍN, UAX #### [place] [address] Curling Machine Operator: Giovany Patel MD Eosinophils/100 WBC (Bld) 2 % Normal 1-4 [facility] Comment on above: Performed By: #### U MARTÍN, UAX #### [place] [address] Curling Machine Operator: Giovany Patel MD Erythrocyte distribution width (RBC) [Ratio] 17.3 % High 11.8-14.4 [facility] Comment on above: Performed By: #### Michelle RESENDIZ UAX #### [place] [address] Curling Machine Operator: Giovany Patel MD Hematocrit (Bld) [Volume fraction] 30.2 % Low 36.3-47.1 [facility] Comment on above: Performed By: #### Michelle RESENDIZ UAX #### [place] [address] Curling Machine Operator: Giovany Patel MD Hemoglobin (Bld) [Mass/Vol] 8.8 g/dL Low 11.9-15.1 [facility] Comment on above: Performed By: #### U MARTÍN UAX #### [place] [address] Curling Machine Operator: Giovany Patel MD Immature granulocytes/100 WBC (Bld) 1 % High 0 [facility] Comment on above: Performed By: #### U MARTÍN, UAX #### [place] [address] Curling Machine Operator: Giovany Patel MD Lymphocytes (Bld) [#/Vol] 1.55 10*3/uL Normal 1.10-3.70 [facility] Comment on above: Performed By: #### U MARTÍN, UAX #### [facility] [address] [place] [phone] Curling Machine Operator: Giovany Patel MD Lymphocytes/100 WBC (Bld) 16 % Low 24-43 [facility] Comment on above: Performed By: #### U MARTÍN, UAX #### [address] [address] Curling Machine Operator: Giovany Patel MD MCH (RBC) [Entitic mass] 29.0 pg Normal 25.2-33.5 [facility] Comment on above: Performed By: #### U MARTÍN UAX #### [address] [address] Curling Machine Operator: Giovany Patel MD MCHC (RBC) [Mass/Vol] 29.1 g/dL Normal 28.4-34.8 [facility] Comment on above: Performed By: #### U MARTÍN, UAX #### [address] [address] Curling Machine Operator: Giovany Patel MD MCV (RBC) [Entitic vol] 99.7 fL Normal 82.6-102.9 [facility] Comment on above: Performed By: #### U MARTÍN UAX #### [address] [address] Curling Machine Operator: Giovany Patel MD Monocytes (Bld) [#/Vol] 0.95 10*3/uL Normal 0.10-1.20 [facility] Comment on above: Performed By: #### U MARTÍN UAX #### [address] [address] Curling Machine Operator: Giovany Patel MD Monocytes/100 WBC (Bld) 10 % Normal 3-12 [facility] Comment on above: Performed By: #### U MARTÍN UAX #### [facility] [address] [place] [address] Curling Machine Operator: Giovany Patel MD Neutrophil (Seg) 71 % High 36-65 [facility] Comment on above: Performed By: #### U MICAO, UAX #### [address] [address] Curling Machine Operator: Giovany Patel MD NRBC Automated 0.0 per 100 WBC Normal 0.0 [facility] Comment on above: Performed By: #### U MICAO, UAX #### [address] [address] Curling Machine Operator: Giovany Patel MD Platelet mean volume (Bld) [Entitic vol] 8.7 fL Normal 8.1-13.5 [facility] Comment on above: Performed By: #### U CORINNEO, UAX #### [address] [address] Curling Machine Operator: Giovany Patel MD Platelets (Bld) [#/Vol] 348 10*3/uL Normal 138-453 [facility] Comment on above: Performed By: #### U MICAO, UAX #### [address] [address] Curling Machine Operator: Giovany Patel MD RBC (Bld) [#/Vol] 3.03 10*6/uL Low 3.95-5.11 [facility] Comment on above: Performed By: #### U MICAO, UAX #### [address] [address] Curling Machine Operator: Giovany Patel MD RBC morphology finding Nom (Bld) ANISOCYTOSIS PRESENT Normal [facility] Comment on above: Performed By: #### U MICAO, UAX #### [address] [address] Curling Machine Operator: Giovany Patel MD WBC (Bld) [#/Vol] 9.9 10*3/uL Normal 3.5-11.3 [facility] Comment on above: Performed By: #### Michelle RESENDIZ UAX #### [facility] [address] [place] [address] Curling Machine Operator: Giovany Patel MD Glucose,Whole Bloodon 2023 Glucose [Mass/Vol] 189 mg/dL High 65-105 [facility] Glucose [Mass/Vol] 291 mg/dL High 65-105 [facility] Glucose [Mass/Vol] 179 mg/dL High 65-105 [facility] Basic Metab w/rfx MGon 09-07 Anion gap [Moles/Vol] 11 mmol/L Normal 9-16 [facility] Comment on above: Performed By: #### Michelle RESENDIZ UAX #### [facility] [address] [place] [address] Curling Machine Operator: Giovany Patel MD Calcium [Mass/Vol] 9.5 mg/dL Normal 8.6-10.4 [facility] Comment on above: Performed By: #### Michelle RESENDIZ UAX #### [facility] [address] [place] [address] Curling Machine Operator: Giovany Patel MD Chloride [Moles/Vol] 95 mmol/L Low 98-107 [facility] Comment on above: Performed By: #### Michelle RESENDIZ UAX #### [facility] [address] [place] [address] Curling Machine Operator: Giovany Patel MD CO2 [Moles/Vol] 32 mmol/L High 20-31 [facility] Comment on above: Performed By: #### U MARTÍN UAX #### [facility] [address] [place] [address] Curling Machine Operator: Giovany Patel MD Creatinine [Mass/Vol] 0.5 mg/dL Normal 0.50-0.90 [facility] Comment on above: Performed By: #### U MARTÍN UAX #### [facility] [address] [place] [address] Curling Machine Operator: Giovany Patel MD GFR/1.73 sq M.predicted among non-blacks MDRD (S/P/Bld) [Vol rate/Area] mL/min/{1.73_m2} Normal >60 [facility] Comment on above: Result Comment: These [...] Performed By: #### Michelle RESENDIZ UAX #### [facility] [address] [place] [address] Curling Machine Operator: Giovany Patel MD Glucose [Mass/Vol] 173 mg/dL High 74-99 [facility] Comment on above: Performed By: #### Michelle RESENDIZ UAX #### [facility] [address] [place] [address] Curling Machine Operator: Giovany Patel MD Potassium [Moles/Vol] 3.8 mmol/L Normal 3.7-5.3 [facility] Comment on above: Performed By: #### U MARTÍN, UAX #### [facility] [address] [place] [address] Curling Machine Operator: Giovany Patel MD Sodium [Moles/Vol] 138 mmol/L Normal 136-145 [facility] Comment on above: Performed By: #### U MARTÍN, UAX #### [facility] [address] [place] [address] Curling Machine Operator: Giovany Patel MD Urea nitrogen [Mass/Vol] 13 mg/dL Normal 8-23 [facility] Comment on above: Performed By: #### Michelle RESENDIZ UAX #### [facility] [address] [place] [address] Curling Machine Operator: Giovany Patel MD CBC with Diffon 09-08-2023 Abs. Basophil 0.03 k/uL Normal 0.00-0.20 [facility] Comment on above: Performed By: #### U MARTÍN UAX #### [facility] [address] [place] [address] Curling Machine Operator: Giovany Patel MD Abs.Imm.Granulocyte 0.13 k/uL Normal 0.00-0.30 [facility] Comment on above: Performed By: #### Michelle RESENDIZ UAX #### [address] [address] Curling Machine Operator: Giovany Patel MD Abs.Neutrophil (Seg) 8.08 k/uL Normal 1.50-8.10 [facility] Comment on above: Performed By: #### Michelle RESENDIZ UAX #### [address] [address] Curling Machine Operator: Giovany Patel MD Basophils/100 WBC (Bld) 0 % Normal 0-2 [facility] Comment on above: Performed By: #### U MARTÍN UAX #### [address] [address] Curling Machine Operator: Giovany Patel MD Eosinophils (Bld) [#/Vol] 0.18 10*3/uL Normal 0.00-0.44 [facility] Comment on above: Performed By: #### U MARTÍN, UAX #### [facility] [address] [place] [address] Curling Machine Operator: Giovany Patel MD Eosinophils/100 WBC (Bld) 2 % Normal 1-4 [facility] Comment on above: Performed By: #### U MARTÍN, UAX #### [facility] [address] [place] [phone] Curling Machine Operator: Giovany Patel MD Erythrocyte distribution width (RBC) [Ratio] 17.8 % High 11.8-14.4 [facility] Comment on above: Performed By: #### U MARTÍN, UAX #### [facility] [address] [place] [address] Curling Machine Operator: Giovany Patel MD Hematocrit (Bld) [Volume fraction] 27.9 % Low 36.3-47.1 [facility] Comment on above: Performed By: #### U MARTÍN, UAX #### [facility] [address] [place] [address] Curling Machine Operator: Giovany Patel MD Hemoglobin (Bld) [Mass/Vol] 8.3 g/dL Low 11.9-15.1 [facility] Comment on above: Performed By: #### U MARTÍN UAX #### [facility] [address] [place] [address] Curling Machine Operator: Giovany Patel MD Immature granulocytes/100 WBC (Bld) 1 % High 0 [facility] Comment on above: Performed By: #### U MARTÍN UAX #### [facility] [address] [place] [address] Curling Machine Operator: Giovany Patel MD Lymphocytes (Bld) [#/Vol] 1.55 10*3/uL Normal 1.10-3.70 [facility] Comment on above: Performed By: #### U MARTÍN, UAX #### [facility] [address] [place] [address] Curling Machine Operator: Giovany Patel MD Lymphocytes/100 WBC (Bld) 14 % Low 24-43 [facility] Comment on above: Performed By: #### U MARTÍN, UAX #### [address] [address] Curling Machine Operator: Giovany Patel MD MCH (RBC) [Entitic mass] 29.5 pg Normal 25.2-33.5 [facility] Comment on above: Performed By: #### U MARTÍN, UAX #### [address] [address] Curling Machine Operator: Giovany Patel MD MCHC (RBC) [Mass/Vol] 29.7 g/dL Normal 28.4-34.8 [facility] Comment on above: Performed By: #### U MARTÍN UAX #### [address] [address] Curling Machine Operator: Giovany Patel MD MCV (RBC) [Entitic vol] 99.3 fL Normal 82.6-102.9 [facility] Comment on above: Performed By: #### U MARTÍN UAX #### [address] [address] Curling Machine Operator: Giovany Patel MD Monocytes (Bld) [#/Vol] 0.88 10*3/uL Normal 0.10-1.20 [facility] Comment on above: Performed By: #### U MARTÍN UAX #### [address] [address] Curling Machine Operator: Giovany Patel MD Monocytes/100 WBC (Bld) 8 % Normal 3-12 [facility] Comment on above: Performed By: #### U MARTÍN, UAX #### [address] [address] Curling Machine Operator: Giovany Patel MD Neutrophil (Seg) 75 % High 36-65 [facility] Comment on above: Performed By: #### U MARTÍN, UAX #### [facility] [address] Curling Machine Operator: Giovany Patel MD NRBC Automated 0.0 per 100 WBC Normal 0.0 [facility] Comment on above: Performed By: #### U MARTÍN, UAX #### [address] [address] Curling Machine Operator: Giovany Patel MD Platelet mean volume (Bld) [Entitic vol] 8.7 fL Normal 8.1-13.5 [facility] Comment on above: Performed By: #### U MARTÍN, UAX #### [address] [address] Curling Machine Operator: Giovany Patel MD Platelets (Bld) [#/Vol] 334 10*3/uL Normal 138-453 [facility] Comment on above: Performed By: #### U MARTÍN UAX #### [address] [address] Curling Machine Operator: Giovany Patel MD RBC (Bld) [#/Vol] 2.81 10*6/uL Low 3.95-5.11 [facility] Comment on above: Performed By: #### U MARTÍN, UAX #### [address] [address] Curling Machine Operator: Giovany Patel MD RBC morphology finding Nom (Bld) ANISOCYTOSIS PRESENT Normal [facility] Comment on above: Performed By: #### U MARTÍN, UAX #### [address] [address] Curling Machine Operator: Giovany Patel MD WBC (Bld) [#/Vol] 10.9 10*3/uL Normal 3.5-11.3 [facility] Comment on above: Performed By: #### U MARTÍN, UAX #### [address] [address] Curling Machine Operator: Giovany Patel MD Glucose,Whole Bloodon 2023 Glucose [Mass/Vol] 284 mg/dL High 65-105 [facility] Glucose [Mass/Vol] 215 mg/dL High -105 [facility] Glucose [Mass/Vol] 202 mg/dL High 65-105 [facility] Glucose [Mass/Vol] 176 mg/dL High -105 [facility] XR TOE LEFT (MIN 2 VIEWS)on [...] Zenon Light MD 09/08/23 Final result Normal [facility] Basic Metab w/rfx MGon 09-06 Anion gap [Moles/Vol] 10 mmol/L Normal 9-16 [facility] Comment on above: Performed By: #### F YENY RAMOS, BNP #### [facility] [address] [place] [address] [phone] Curling Machine Operator: Giovany Patel MD Calcium [Mass/Vol] 10.2 mg/dL Normal 8.6-10.4 [facility] Comment on above: Performed By: #### F YENY RAMOS, BNP #### [facility] [address] [place], [place] [phone] Curling Machine Operator: Giovany Patel MD Chloride [Moles/Vol] 98 mmol/L Normal 98-107 [facility] Comment on above: Performed By: #### F YENY RAMOS, BNP #### [facility] [address] [place] [address] Curling Machine Operator: Giovany Patel MD CO2 [Moles/Vol] 34 mmol/L High 20-31 [facility] Comment on above: Performed By: #### F YENY RAMOS, BNP #### [facility] [address] [place] [address] Curling Machine Operator: Giovany Patel MD Creatinine [Mass/Vol] 0.6 mg/dL Normal 0.50-0.90 [facility] Comment on above: Performed By: #### F YENY RAMOS, BNP #### [address] [address] Curling Machine Operator: Giovany Patel MD GFR/1.73 sq M.predicted among non-blacks MDRD (S/P/Bld) [Vol rate/Area] mL/min/{1.73_m2} Normal >60 [facility] Comment on above: Result Comment: These [...] BNP #### [facility] [address] [place] [phone] Curling Machine Operator: Giovany Patel MD Glucose [Mass/Vol] 146 mg/dL High 74-99 [facility] Comment on above: Performed By: #### F YENY RAMOS, BNP #### [facility] [address] [place] [address] Curling Machine Operator: Giovany Patel MD Potassium [Moles/Vol] 4.3 mmol/L Normal 3.7-5.3 [facility] Comment on above: Performed By: #### YENY KNOX, BNP #### [facility] [address] [place] [address] Curling Machine Operator: Giovany Patel MD Sodium [Moles/Vol] 142 mmol/L Normal 136-145 [facility] Comment on above: Performed By: #### YENY KNOX, BNP #### [facility] [address] [place] [address] Curling Machine Operator: Giovany Patel MD Urea nitrogen [Mass/Vol] 16 mg/dL Normal 8-23 [facility] Comment on above: Performed By: #### YENY KNOX, BNP #### [address] [address] Curling Machine Operator: Giovany Patel MD CBC with Diffon 09-07-2023 Abs. Basophil <0.03 Normal 0.00-0.20 [facility] Comment on above: Performed By: #### YENY KNOX, BNP #### [facility] [address] [place] [address] Curling Machine Operator: Giovany Patel MD Abs.Imm.Granulocyte 0.12 k/uL Normal 0.00-0.30 [facility] Comment on above: Performed By: #### YENY KNOX, BNP #### [facility] [address] [place] [address] Curling Machine Operator: Giovany Patel MD Abs.Neutrophil (Seg) 8.44 k/uL High 1.50-8.10 [facility] Comment on above: Performed By: #### YENY KNOX, BNP #### [facility] [address] [place] [address] Curling Machine Operator: Giovany Patel MD Basophils/100 WBC (Bld) 0 % Normal 0-2 [facility] Comment on above: Performed By: #### F YENY RAMOS, BNP #### [address] [address] Curling Machine Operator: Giovany Patel MD Eosinophils (Bld) [#/Vol] 0.20 10*3/uL Normal 0.00-0.44 [facility] Comment on above: Performed By: #### F VIPUL RAMOSBC, BNP #### [facility] [address] [place] [address] Curling Machine Operator: Giovany Patel MD Eosinophils/100 WBC (Bld) 2 % Normal 1-4 [facility] Comment on above: Performed By: #### F YENY RAMOS, BNP #### [address] [address] Curling Machine Operator: Giovany Patel MD Erythrocyte distribution width (RBC) [Ratio] 17.7 % High 11.8-14.4 [facility] Comment on above: Performed By: #### F YENY RAMOS, BNP #### [address] [address] Curling Machine Operator: Giovany Patel MD Hematocrit (Bld) [Volume fraction] 29.8 % Low 36.3-47.1 [facility] Comment on above: Performed By: #### F YENY RAMOS, BNP #### [facility] [address] [place] [address] Curling Machine Operator: Giovany Patel MD Hemoglobin (Bld) [Mass/Vol] 8.8 g/dL Low 11.9-15.1 [facility] Comment on above: Performed By: #### F VIPUL RAMOSBC, BNP #### [facility] [address] [place] [address] Curling Machine Operator: Giovany Patel MD Immature granulocytes/100 WBC (Bld) 1 % High 0 [facility] Comment on above: Performed By: #### F YENY RAMOS, BNP #### [address] [address] [employer]ling Machine Operator: Giovany Patel MD Lymphocytes (Bld) [#/Vol] 1.23 10*3/uL Normal 1.10-3.70 [facility] Comment on above: Performed By: #### F YENY RAMOS, BNP #### [address] [address] [employer]ling Machine Operator: Giovany Patel MD Lymphocytes/100 WBC (Bld) 11 % Low 24-43 [facility] Comment on above: Performed By: #### F YENY RAMOS, BNP #### [address] [address] [employer] Operator: Giovany Patel MD MCH (RBC) [Entitic mass] 29.3 pg Normal 25.2-33.5 [facility] Comment on above: Performed By: #### F YENY RAMOS, BNP #### [address] [address] Curling Machine Operator: Giovany Patel MD MCHC (RBC) [Mass/Vol] 29.5 g/dL Normal 28.4-34.8 [facility] Comment on above: Performed By: #### F YENY RAMOS, BNP #### [address] [address] [employer]ling Machine Operator: Giovany Patel MD MCV (RBC) [Entitic vol] 99.3 fL Normal 82.6-102.9 [facility] Comment on above: Performed By: #### F RICHARDYENY Loza, BNP #### [address] [address] [employer]ling Machine Operator: Giovany Patel MD Monocytes (Bld) [#/Vol] 0.74 10*3/uL Normal 0.10-1.20 [facility] Comment on above: Performed By: #### F YENY RAMOS, BNP #### [address] [address] [employer]ling Machine Operator: Giovany Patel MD Monocytes/100 WBC (Bld) 7 % Normal 3-12 [facility] Comment on above: Performed By: #### F YENY RAMOS, BNP #### [facility] [address] [place] [address] Curling Machine Operator: Giovany Patel MD Neutrophil (Seg) 79 % High 36-65 [facility] Comment on above: Performed By: #### YENY KNOX, BNP #### [facility] [address] [place] [address] Curling Machine Operator: Giovany Patel MD NRBC Automated 0.0 per 100 WBC Normal 0.0 [facility] Comment on above: Performed By: #### YENY KNOX, BNP #### [facility] [address] [place] [address] Curling Machine Operator: Giovany Patel MD Platelet mean volume (Bld) [Entitic vol] 8.9 fL Normal 8.1-13.5 [facility] Comment on above: Performed By: #### YENY KNOX, BNP #### [facility] [address] [place] [phone] Curling Machine Operator: Giovany Patel MD Platelets (Bld) [#/Vol] 333 10*3/uL Normal 138-453 [facility] Comment on above: Performed By: #### F YENY RAMOS, BNP #### [facility] [address] [place] [address] [employer]ling Machine Operator: Giovany Patel MD RBC (Bld) [#/Vol] 3.00 10*6/uL Low 3.95-5.11 [facility] Comment on above: Performed By: #### F YENY RAMOS, BNP #### [address] [address] Curling Machine Operator: Giovany Patel MD RBC morphology finding Nom (Bld) ANISOCYTOSIS PRESENT Normal [facility] Comment on above: Performed By: #### F YENY RAMOS, BNP #### [address] [address] Curling Machine Operator: Giovany Patel MD WBC (Bld) [#/Vol] 10.8 10*3/uL Normal 3.5-11.3 [facility] Comment on above: Performed By: #### F YENY RAMOS, BNP #### [address] [address] Curling Machine Operator: Giovany Patel MD Glucose,Whole Bloodon 2023 Glucose [Mass/Vol] 280 mg/dL High 65-105 [facility] Glucose [Mass/Vol] 199 mg/dL High [facility]105 [facility] Glucose [Mass/Vol] 173 mg/dL High [facility]105 [facility] Glucose [Mass/Vol] 141 mg/dL High [facility]105 [facility] UA w/Reflex Cultureon 2023 Bilirubin, SemiQt,Ur Negative Normal NEG [facility] Comment on above: Performed By: #### U CORINNEO, UAX #### [facility] [address] [place] [address] Curling Machine Operator: Giovany Patel MD Blood, Urine Negative Normal NEG [facility] Comment on above: Performed By: #### U MICAO, UAX #### [facility] [address] [place] [address] Curling Machine Operator: Giovany Patel MD Clarity (U) Clear Normal CLEAR [facility] Comment on above: Performed By: #### U MICAO, UAX #### [facility] [address] [place] [address] Curling Machine Operator: Giovany Patel MD Color (U) Yellow Normal YEL [facility] Comment on above: Performed By: #### U MICAO, UAX #### [facility] [address] [place] [address] Curling Machine Operator: Giovany Patel MD Glucose Ql (U) Negative Normal NEG [facility] Comment on above: Performed By: #### U MICAO, UAX #### [facility] [address] [place] [address] Curling Machine Operator: Giovany Patel MD Ketones Ql (U) Negative Normal NEG [facility] Comment on above: Performed By: #### U MICAO, UAX #### [address] [address] Curling Machine Operator: Giovany Patel MD Leukocyte esterase Test strip Ql (U) SMALL Abnormal NEG [facility] Comment on above: Performed By: #### U MICAO, UAX #### [facility] [address] [place] [address] Curling Machine Operator: Giovany Patel MD Nitrite,Ur Negative Normal NEG [facility] Comment on above: Performed By: #### U MICAO, UAX #### [facility] [address] [place] [address] [employer]ling Machine Operator: Giovany Patel MD PH,Ur 5.0 Normal 5.0-8.0 [facility] Comment on above: Performed By: #### U MICAO, UAX #### [facility] [address] [place] [address] Curling Machine Operator: Giovany Patel MD Protein Ql (U) Negative Normal NEG [facility] Comment on above: Performed By: #### U MICAO, UAX #### [facility] [address] [place] [address] Curling Machine Operator: Giovany Patel MD Spec. Lowman,Ur 1.016 Normal 1.005-1.030 [facility] Comment on above: Performed By: #### U MICAO, UAX #### [address] [address] Curling Machine Operator: Giovany Patel MD Urobilinogen,Ur Normal Normal 0.0-1.0 [facility] Comment on above: Performed By: #### U MICAO, UAX #### [address] [address] Curling Machine Operator: Giovany Patel MD Urinalysis,Microon 4 Bacteria None Normal NONE [facility] Comment on above: Performed By: #### U CORINNEO, UAX #### [address] [address] [employer]ling Machine Operator: Giovany Patel MD Casts 0 TO 2 HYALINE Normal 0-8 [facility] Comment on above: Result Comment: Refe rence range defined for non-centrifuged specimen. Performed By: #### U MICAO, UAX #### [address] [address] [employer]ling Machine Operator: Giovany Patel MD Epithelial cells LM Ql (Urine sed) None Normal 0-5 [facility] Comment on above: Performed By: #### U MICAO, UAX #### [facility] [address] [place] [address] Curling Machine Operator: Giovany Patel MD Urine RBC's None Normal 0-4 [facility] Comment on above: Result Comment: Refe rence range defined for non-centrifuged specimen. Performed By: #### U MICAO, UAX #### [address] [address] Curling Machine Operator: Giovany Patel MD Urine WBC's 2 TO 5 Normal 0-5 [facility] Comment on above: Performed By: #### U MARTÍN UAX #### [address] [address] Curling Machine Operator: Giovany Patel MD Basic Metabolic Profon 09-05 Anion gap [Moles/Vol] 8 mmol/L Low 9-16 [facility] Comment on above: Performed By: #### U MARTÍN UAX #### [address] [address] Curling Machine Operator: Giovany Patel MD Calcium [Mass/Vol] 9.1 mg/dL Normal 8.6-10.4 [facility] Comment on above: Performed By: #### Michelle RESENDIZ UAX #### [address] [address] Curling Machine Operator: Giovany Patel MD Chloride [Moles/Vol] 96 mmol/L Low 98-107 [facility] Comment on above: Performed By: #### U MARTÍN UAX #### [address] [address] [employer]ling Machine Operator: Giovany Patel MD CO2 [Moles/Vol] 35 mmol/L High 20-31 [facility] Comment on above: Performed By: #### U MARTÍN UAX #### [address] [address] [employer]ling Machine Operator: Giovany Patel MD Creatinine [Mass/Vol] 0.5 mg/dL Normal 0.50-0.90 [facility] Comment on above: Performed By: #### U MARTÍN, UAX #### [address] [address] [employer]ling Machine Operator: Giovany Patel MD GFR/1.73 sq M.predicted among non-blacks MDRD (S/P/Bld) [Vol rate/Area] mL/min/{1.73_m2} Normal >60 [facility] Comment on above: Result Comment: These [...] Performed By: #### U MARTÍN, UAX #### [facility] [address] [place] [address] Curling Machine Operator: Giovany Patel MD Glucose [Mass/Vol] 123 mg/dL High 74-99 [facility] Comment on above: Performed By: #### U MARTÍN UAX #### [facility] [address] [place] [address] Curling Machine Operator: Giovany Patel MD Potassium [Moles/Vol] 4.4 mmol/L Normal 3.7-5.3 [facility] Comment on above: Performed By: #### U MARTÍN UAX #### [facility] [address] [place] [address] Curling Machine Operator: Giovany Patel MD Sodium [Moles/Vol] 139 mmol/L Normal 136-145 [facility] Comment on above: Performed By: #### U MARTÍN UAX #### [facility] [address] [place] [address] Curling Machine Operator: Giovany Patel MD Urea nitrogen [Mass/Vol] 18 mg/dL Normal 8-23 [facility] Comment on above: Performed By: #### U MARTÍN, UAX #### [facility] [address] [place] [address] Curling Machine Operator: Giovany Patel MD Anion gap [Moles/Vol] 10 mmol/L Normal 9-16 [facility] Comment on above: Performed By: #### B MP, TROPI #### [facility] [place] [address] Curling Machine Operator: Giovany Patel MD Calcium [Mass/Vol] 9.8 mg/dL Normal 8.6-10.4 [facility] Comment on above: Performed By: #### B MP, TROPI #### [facility] [address] [place] [address] Curling Machine Operator: Giovany Patel MD Chloride [Moles/Vol] 96 mmol/L Low 98-107 [facility] Comment on above: Performed By: #### B MP, TROPI #### [facility] [address] [place] [address] Curling Machine Operator: Giovany Patel MD CO2 [Moles/Vol] 34 mmol/L High 20-31 [facility] Comment on above: Performed By: #### B MP, TROPI #### [facility] [address] [place] [address] Curling Machine Operator: Giovany Patel MD Creatinine [Mass/Vol] 0.6 mg/dL Normal 0.50-0.90 [facility] Comment on above: Performed By: #### B MP, TROPI #### [facility] [address] [place] [address] [employer]ling Machine Operator: Giovany Patel MD GFR/1.73 sq M.predicted among non-blacks MDRD (S/P/Bld) [Vol rate/Area] mL/min/{1.73_m2} Normal >60 [facility] Comment on above: Result Comment: These [...] #### B PONCHO, TROPI #### [facility] [address] [place] [address] Curling Machine Operator: Giovany Patel MD Glucose [Mass/Vol] 119 mg/dL High 74-99 [facility] Comment on above: Performed By: #### B MP, TROPI #### [facility] [address] [place] [address] Curling Machine Operator: Giovany Patel MD Potassium [Moles/Vol] 5.2 mmol/L Normal 3.7-5.3 [facility] Comment on above: Performed By: #### B PONCHO, TROPI #### [facility] [address] [place] [address] Curling Machine Operator: Giovany Patel MD Sodium [Moles/Vol] 140 mmol/L Normal 136-145 [facility] Comment on above: Performed By: #### B PONCHO, TROPI #### [facility] [address] [place] [address] Curling Machine Operator: Giovany Patel MD Urea nitrogen [Mass/Vol] 21 mg/dL Normal 8-23 [facility] Comment on above: Performed By: #### B PONCHO, TROPI #### [facility] [address] [place] [address] Curling Machine Operator: Giovany Patel MD Brain Natri. Peptideon 09-05 Natriuretic peptide B (Bld) [Mass/Vol] 2721 pg/mL High 0-300 [facility] Comment on above: Result Comment: An a ge-independent cutoff point of 300 pg/ml has a 98% negative predictive value excluding acute heart failure. Performed By: #### F RICHARD, FEBC, BNP #### [facility] [address] Curling Machine Operator: Giovany Patel MD CBCon 09-06-2023 Erythrocyte distribution width (RBC) [Ratio] 17.7 % High 11.8-14.4 [facility] Comment on above: Performed By: #### C BC #### [address] [address] Curling Machine Operator: Giovany Patel MD Hematocrit (Bld) [Volume fraction] 27.7 % Low 36.3-47.1 [facility] Comment on above: Performed By: #### C BC #### [address] [address] Curling Machine Operator: Giovany Patel MD Hemoglobin (Bld) [Mass/Vol] 8.3 g/dL Low 11.9-15.1 [facility] Comment on above: Performed By: #### C BC #### [address] [address] Curling Machine Operator: Giovany Patel MD MCH (RBC) [Entitic mass] 29.9 pg Normal 25.2-33.5 [facility] Comment on above: Performed By: #### C BC #### [address] [address] Curling Machine Operator: Giovany Patel MD MCHC (RBC) [Mass/Vol] 30.0 g/dL Normal 28.4-34.8 [facility] Comment on above: Performed By: #### C BC #### [address] [address] Curling Machine Operator: Giovany Patel MD MCV (RBC) [Entitic vol] 99.6 fL Normal 82.6-102.9 [facility] Comment on above: Performed By: #### C BC #### [address] [address] Curling Machine Operator: Giovany Patel MD NRBC Automated 0.0 per 100 WBC Normal 0.0 [facility] Comment on above: Performed By: #### C BC #### [address] [address] Curling Machine Operator: Giovany Patel MD Platelet mean volume (Bld) [Entitic vol] 8.9 fL Normal 8.1-13.5 [facility] Comment on above: Performed By: #### C BC #### [address] [address] Curling Machine Operator: Giovany Patel MD Platelets (Bld) [#/Vol] 341 10*3/uL Normal 138-453 [facility] Comment on above: Performed By: #### C BC #### [address] [address] Curling Machine Operator: Giovany Patel MD RBC (Bld) [#/Vol] 2.78 10*6/uL Low 3.95-5.11 [facility] Comment on above: Performed By: #### C BC #### [address] [address] Curling Machine Operator: Giovany Patel MD WBC (Bld) [#/Vol] 12.6 10*3/uL High 3.5-11.3 [facility] Comment on above: Performed By: #### C BC #### [address] [address] Curling Machine Operator: Giovany Patel MD Ferritinon 09-06-2023 Ferritin [Mass/Vol] 380 ng/mL High 13-150 [facility] Comment on above: Result Comment: No r eference range established for this age/gender. Performed By: #### F RICHARD, FEBC, BNP #### [address] [address] Curling Machine Operator: Giovany Patel MD Glucose,Whole Bloodon 2023 Glucose [Mass/Vol] 112 mg/dL High 65-105 [facility] Iron Binding Cap.on 09-06-19 24 % Fe Saturation 11 % Low 20-55 [facility] Comment on above: Performed By: #### F RICHARD, FEBC, BNP #### [facility] [address] [place] [address] Curling Machine Operator: Giovany Patel MD Iron [Mass/Vol] 24 ug/dL Low 37-145 [facility] Comment on above: Performed By: #### F RICHARD FEBC, BNP #### [facility] [address] [place] [address] Curling Machine Operator: Giovany Patel MD Total Fe Binding Cap 209 ug/dL Low 250-450 [facility] Comment on above: Performed By: #### F RICHARD, FEBC, BNP #### [facility] [place] [address] Curling Machine Operator: Giovany Patel MD Unbound Fe Bind Cap 185 ug/dL Normal 112-347 [facility] Comment on above: Performed By: #### F RICHARD, FEBC, BNP #### [facility] [address] [place] [address] Curling Machine Operator: Giovany Patel MD Procalcitoninon 09-06-2023 Procalcitonin 0.08 ng/mL Normal 0.00-0.09 [facility] Comment on above: Result Comment: Suspected [...] entered into the Change in Procalcitonin Calculator ([email or web address]) to determine the patient's Mortality Risk Prognosis In healthy neonates, plasma Procalcitonin (PCT) concentrations increase gradually after , reaching peak values at about 24 hours of age then decrease to normal values below 0.5 ng/mL by 48-72 hours of age. Performed By: #### U MICAO, UAX #### [facility] [address] [place], [place] [phone] Curling Machine Operator: Giovany Patel MD Troponinon 09-06-2023 Troponin, High Sens 20 ng/L High 014 [facility] Comment on above: Result Comment: High Sensitivity Troponin values cannot be compared with other Troponin methodologies. Performed By: #### U MICAO, UAX #### [facility] [address] [place], [place] [phone] [employer]ling Machine Operator: Giovany Patel MD Troponin, High Sens 21 ng/L High 014 [facility] Comment on above: Result Comment: High Sensitivity Troponin values cannot be compared with other Troponin methodologies. Performed By: #### U MICAO, UAX #### [facility] [address] [place], [place] [id number] [employer]ling Machine Operator: Giovany Patel MD XR CHEST PORTABLEon 09-06-19 [...] Zenon Light MD 09/06/23 Final result Normal [facility] BNPon 02-26-2022 Natriuretic peptide B (Bld) [Mass/Vol] 3520.0 pg/mL Critically high <=1,800.0 [facility] Comment on above: Performed By: #### C MP, BNP #### [facility] [address] [place] [address] Dr. Yisel Liu CBC AUTO DIFFon 02-26-2022 BASO # 0.0 103/ul Normal 0.0-0.1 [facility] Comment on above: Performed By: #### C BC #### [facility] [address] [place] [address] Dr. Yisel Liu Basophils/100 WBC (Bld) 0.1 % Critically low 0.2-2.0 [facility] Comment on above: Performed By: #### C BC #### [facility] [address] [place] [address] Dr. Yisel Liu EO # 0.0 103/ul Normal 0.0-0.7 [facility] Comment on above: Performed By: #### C BC #### [facility] [address] [place] [address] Dr. Yisel Liu Eosinophils/100 WBC (Bld) 0.0 % Critically low 0.9-7.0 [facility] Comment on above: Performed By: #### C BC #### [facility] [address] [place] [address] Dr. Yisel Liu Erythrocyte distribution width (RBC) [Ratio] 16.6 % Critically high 11.0-15.0 [facility] Comment on above: Performed By: #### C BC #### [facility] [address] [place] [address] Dr. Yisel Liu Hematocrit (Bld) [Volume fraction] 36.2 % Normal 36.0-48.0 [facility] Comment on above: Performed By: #### C BC #### [facility] [address] [place] [address] Dr. Yisel Liu Hemoglobin (Bld) [Mass/Vol] 11.1 g/dL Critically low 12.0-16.0 [facility] Comment on above: Performed By: #### C BC #### [facility] [address] [place] [address] Dr. Yisel Liu IG # 0.14 10e3/ul Critically high 0.00-0.[address] [facility] Comment on above: Performed By: #### C BC #### [facility] [address] [place] [address] Dr. Yisel Liu IG % 1.0 % Critically high 0.0-0.5 [facility] Comment on above: Performed By: #### C BC #### [facility] [address] [place] [address] Dr. Yisel Liu LYMPH # 0.8 103/ul Critically low 1.2-3.8 [facility] Comment on above: Performed By: #### C BC #### [facility] [address] [place] [address] Dr. Yisel Liu Lymphocytes/100 WBC (Bld) 5.9 % Critically low 20.5-60.0 [facility] Comment on above: Performed By: #### C BC #### [facility] [address] [place] [address] Dr. Yisel Liu MANUAL DIFF REQ NO Normal [facility] Comment on above: Performed By: #### C BC #### [facility] [address] [place] [address] Dr. Yisel Liu MCH (RBC) [Entitic mass] 28.0 pg Normal 26.7-34.0 [facility] Comment on above: Performed By: #### C BC #### [facility] [address] [place] [address] Dr. Yisel Liu MCHC (RBC) [Mass/Vol] 30.7 g/dL Normal 29.9-35.2 [facility] Comment on above: Performed By: #### C BC #### [facility] [address] [place] [address] Dr. Yisel Liu MCV (RBC) [Entitic vol] 91.2 fL Normal 81.0-99.0 [facility] Comment on above: Performed By: #### C BC #### [facility] [address] [place] [address] Dr. Yisel Liu MONO # 1.0 103/ul Critically high 0.3-0.8 [facility] Comment on above: Performed By: #### C BC #### [facility] [address] [place] [address] Dr. Yisel Liu Monocytes/100 WBC (Bld) 7.6 % Normal 1.7-12.0 [facility] Comment on above: Performed By: #### C BC #### [facility] [address] [place] [address] Dr. Yisel Liu NEUT # 11.4 103/ul Critically high 1.4-6.5 [facility] Comment on above: Performed By: #### C BC #### [facility] [address] [place] [address] Dr. Yisel Liu Neutrophils/100 WBC (Bld) 85.4 % Critically high 43.0-75.0 [facility] Comment on above: Performed By: #### C BC #### [facility] [address] [place] [address] Dr. Yisel Liu Platelet mean volume (Bld) [Entitic vol] 8.8 fL Critically low 9.5-13.5 [facility] Comment on above: Performed By: #### C BC #### [facility] [address] [place] [address] Dr. Yisel Liu PLT 325 103/ul Normal 150-450 [facility] Comment on above: Performed By: #### C BC #### [facility] [address] [place] [address] Dr. Yisel Liu RBC 3.97 106/ul Critically low 4.20-5.40 [facility] Comment on above: Performed By: #### C BC #### [facility] [address] [place] [address] Dr. Yisel Liu WBC 13.4 103/ul Critically high 4.0-11.0 [facility] Comment on above: Performed By: #### C BC #### [facility] [address] [place] [address] Dr. Yisel Liu PROF 14(COMP METB)on 022 Albumin [Mass/Vol] 2.7 g/dL Critically low 3.4-5.0 [facility] Comment on above: Performed By: #### C MP, BNP #### [facility] [address] [place] [address] Dr. Yisel Liu Albumin/Globulin [Mass ratio] 0.6 {ratio} Normal [facility] Comment on above: Performed By: #### C MP, BNP #### [facility] [address] [address] [address] Yisel Liu ALP [Catalytic activity/Vol] 49 U/L Normal 46-116 [facility] Comment on above: Performed By: #### C MP, BNP #### [facility] [address] [place] [address] Dr. Yisel Liu ALT [Catalytic activity/Vol] 28 U/L Normal 14-59 [facility] Comment on above: Performed By: #### C MP, BNP #### [facility] [address] [place] [address] Dr. Yisel Liu Anion gap [Moles/Vol] 10.9 mmol/L Normal [facility] Comment on above: Performed By: #### C MP, BNP #### [facility] [address] [place] [address] Dr. Yisel Liu AST [Catalytic activity/Vol] 29 U/L Normal 15-37 [facility] Comment on above: Performed By: #### C MP, BNP #### [facility] [address] [place] [address] Dr. Yisel Liu Bilirubin [Mass/Vol] 0.5 mg/dL Normal 0.2-1.0 [facility] Comment on above: Performed By: #### C MP, BNP #### [facility] [address] [place] [address] Dr. Yisel Liu Calcium [Mass/Vol] 9.7 mg/dL Normal 8.5-10.1 [facility] Comment on above: Performed By: #### C MP, BNP #### [facility] [address] [place] [address] Dr. Yisel Liu Chloride [Moles/Vol] 97 mmol/L Critically low 98-107 [facility] Comment on above: Performed By: #### C MP, BNP #### [facility] [address] [place] [address] Dr. Yisel Liu CO2 [Moles/Vol] 38.5 mmol/L Critically high 21.0-32.0 [facility] Comment on above: Performed By: #### C MP, BNP #### [facility] [address] [place] [address] Dr. Yisel Liu Creatinine [Mass/Vol] 1.67 mg/dL Critically high 0.55-1.02 [facility] Comment on above: Performed By: #### C MP, BNP #### [facility] [address] [place] [address] Dr. Yisel Liu EGFR-AF CONGOLESE 36 mL/min/1.73m2 Critically low >=60 [facility] Comment on above: Performed By: #### C MP, BNP #### [facility] [address] [place] [address] Dr. Yisel Liu EGFR-NON AF CONGOLESE 30 mL/min/1.73m2 Critically low >=60 [facility] Comment on above: Performed By: #### C MP, BNP #### [facility] [address] [place] [address] Dr. Yisel Liu Globulin (S) [Mass/Vol] 4.8 g/dL Normal [facility] Comment on above: Performed By: #### C MP, BNP #### [facility] [address] [place] [address] Dr. Yisel Liu Glucose [Mass/Vol] 159 mg/dL Critically high 74-106 [facility] Comment on above: Performed By: #### C MP, BNP #### [facility] [address] [place] [address] Dr. Yisel Liu Potassium [Moles/Vol] 5.4 mmol/L Critically high 3.5-5.1 [facility] Comment on above: Performed By: #### C MP, BNP #### [facility] [address] [place] [address] Dr. Yisel Liu Protein [Mass/Vol] 7.5 g/dL Normal 6.4-8.[address] [facility] Comment on above: Performed By: #### C MP, BNP #### [facility] [address] [place] [address] Dr. Yisel Liu Sodium [Moles/Vol] 141 mmol/L Normal 136-[address] [facility] Comment on above: Performed By: #### C MP, BNP #### [facility] [address] [place] [address] Dr. Yisel Liu Urea nitrogen [Mass/Vol] 61.0 mg/dL Critically high 7.0-18.0 [facility] Comment on above: Performed By: #### C MP, BNP #### [facility] [address] [place] [address] Dr. Yisel Liu Urea nitrogen/Creatinine [Mass ratio] 36.5 mg/mg Normal [facility] Comment on above: Performed By: #### C MP, BNP #### [facility] [address] [place] [address] Dr. Yisel Liu XR CHEST 1 Von [...] KOBI TOMAS Date: 2022-02-26 05:15 Normal [facility] BNPon 02-25-2022 Natriuretic peptide B (Bld) [Mass/Vol] 3112.0 pg/mL Critically high <=1,800.0 [facility] Comment on above: Performed By: #### P HVEN #### [facility] [address] [place] [address] Dr. Yisel Liu CBC AUTO DIFFon 02-25-2022 BASO # 0.0 103/ul Normal 0.0-0.1 [facility] Comment on above: Performed By: #### D IG #### [facility] [address] [address] [address] Yisel Liu Basophils/100 WBC (Bld) 0.1 % Critically low 0.2-2.0 [facility] Comment on above: Performed By: #### D IG #### [facility] [address] [address] [address] Yisel Liu EO # 0.0 103/ul Normal 0.0-0.7 [facility] Comment on above: Performed By: #### D IG #### [facility] [address] [address] [address] Yisel Liu Eosinophils/100 WBC (Bld) 0.0 % Critically low 0.9-7.0 [facility] Comment on above: Performed By: #### D IG #### [facility] [address] [place] [address] Dr. Yisel Liu Erythrocyte distribution width (RBC) [Ratio] 16.7 % Critically high 11.0-15.0 [facility] Comment on above: Performed By: #### D IG #### [facility] [address] [place] [address] Dr. Yisel Liu Hematocrit (Bld) [Volume fraction] 38.4 % Normal 36.0-48.0 [facility] Comment on above: Performed By: #### D IG #### [facility] [address] [place] [address] Dr. Yisel Liu Hemoglobin (Bld) [Mass/Vol] 11.9 g/dL Critically low 12.0-16.0 [facility] Comment on above: Performed By: #### D IG #### [facility] [address] [place] [address] Dr. Yisel Liu IG # 0.09 10e3/ul Critically high 0.00-0.[address] [facility] Comment on above: Performed By: #### D IG #### [facility] [address] [address] [address] Yisel Liu IG % 0.6 % Critically high 0.0-0.5 [facility] Comment on above: Performed By: #### D IG #### [facility] [address] [address] [address] Yisel Liu LYMPH # 0.7 103/ul Critically low 1.2-3.8 [facility] Comment on above: Performed By: #### D IG #### [facility] [address] [address] [address] Yisel Liu Lymphocytes/100 WBC (Bld) 5.0 % Critically low 20.5-60.0 [facility] Comment on above: Performed By: #### D IG #### [facility] [address] [place] [address] Dr. Yisel Liu MANUAL DIFF REQ NO Normal [facility] Comment on above: Performed By: #### D IG #### [facility] [address] [place] [address] Dr. Yisel Liu MCH (RBC) [Entitic mass] 28.0 pg Normal 26.7-34.0 [facility] Comment on above: Performed By: #### D IG #### [facility] [address] [place] [address] Dr. Yisel Liu MCHC (RBC) [Mass/Vol] 31.0 g/dL Normal 29.9-35.2 [facility] Comment on above: Performed By: #### D IG #### [facility] [address] [place] [address] Dr. Yisel Liu MCV (RBC) [Entitic vol] 90.4 fL Normal 81.0-99.0 [facility] Comment on above: Performed By: #### D IG #### [facility] [address] [address] [address] Yisel Liu MONO # 1.2 103/ul Critically high 0.3-0.8 [facility] Comment on above: Performed By: #### D IG #### [facility] [address] [place] [address] Dr. Yisel Liu Monocytes/100 WBC (Bld) 8.1 % Normal 1.7-12.0 [facility] Comment on above: Performed By: #### D IG #### [facility] [address] [address] [address] Yisel Liu NEUT # 12.2 103/ul Critically high 1.4-6.5 [facility] Comment on above: Performed By: #### D IG #### [facility] [address] [address] [address] Yisel Liu Neutrophils/100 WBC (Bld) 86.2 % Critically high 43.0-75.0 [facility] Comment on above: Performed By: #### D IG #### [facility] [address] [address] [address] Yisel Liu Platelet mean volume (Bld) [Entitic vol] 8.8 fL Critically low 9.5-13.5 [facility] Comment on above: Performed By: #### D IG #### [facility] [address] [address] [address] iYsel Liu PLT 317 103/ul Normal 150-450 [facility] Comment on above: Performed By: #### D IG #### [facility] [address] [address] [address] Yisel Liu RBC 4.25 106/ul Normal 4.20-5.40 [facility] Comment on above: Performed By: #### D IG #### [facility] [address] [address] [address] Yisel Liu WBC 14.1 103/ul Critically high 4.0-11.0 [facility] Comment on above: Performed By: #### D IG #### [facility] [address] [address] [address] Yisel Liu POINT OF CARE GLUCOSEon - Glucose [Mass/Vol] 312 mg/dL Critically high 74-106 [facility] Comment on above: Performed By: #### P OCGLUC #### [facility] [address] [address] [address] Yisel Liu Glucose [Mass/Vol] 94 mg/dL Normal 74-106 [facility] Comment on above: Performed By: #### D IG #### [facility] [address] [address] [address] Yisel Liu Glucose [Mass/Vol] 260 mg/dL Critically high 74-106 [facility] Comment on above: Performed By: #### C BC #### [facility] [address] [address] [address] Yisel Liu PROF 14(COMP METB)on 022 Albumin [Mass/Vol] 2.7 g/dL Critically low 3.4-5.0 [facility] Comment on above: Performed By: #### P HVEN #### [facility] [address] [place] [address] Dr. Yisel Liu Albumin/Globulin [Mass ratio] 0.5 {ratio} Normal [facility] Comment on above: Performed By: #### P HVEN #### [facility] [address] [place] [address] Dr. Yisel Liu ALP [Catalytic activity/Vol] 58 U/L Normal 46-116 [facility] Comment on above: Performed By: #### P HVEN #### [facility] [address] [address] [address] Yisel Liu ALT [Catalytic activity/Vol] 32 U/L Normal 14-59 [facility] Comment on above: Performed By: #### P HVEN #### [facility] [address] [place] [address] Dr. Yisel Liu Anion gap [Moles/Vol] 12.3 mmol/L Normal [facility] Comment on above: Performed By: #### P HVEN #### [facility] [address] [place] [address] Dr. Yisel Liu AST [Catalytic activity/Vol] 54 U/L Critically high 15-37 [facility] Comment on above: Performed By: #### P HVEN #### [facility] [address] [place] [address] Dr. Yisel Liu Bilirubin [Mass/Vol] 0.5 mg/dL Normal 0.2-1.0 [facility] Comment on above: Performed By: #### P HVEN #### [facility] [address] [address] [address] Yisel Liu Calcium [Mass/Vol] 9.6 mg/dL Normal 8.5-10.1 [facility] Comment on above: Performed By: #### P HVEN #### [facility] [address] [address] [address] Yisel Liu Chloride [Moles/Vol] 96 mmol/L Critically low 98-107 [facility] Comment on above: Performed By: #### P HVEN #### [facility] [address] [address] [address] Yisel Liu CO2 [Moles/Vol] 33.9 mmol/L Critically high 21.0-32.0 [facility] Comment on above: Performed By: #### P HVEN #### [facility] [address] [address] [address] Yisel Liu Creatinine [Mass/Vol] 1.42 mg/dL Critically high 0.55-1.02 [facility] Comment on above: Performed By: #### P HVEN #### [facility] [address] [address] [address] Yisel Liu EGFR-AF CONGOLESE 43 mL/min/1.73m2 Critically low >=60 [facility] Comment on above: Performed By: #### P HVEN #### [facility] [address] [address] [address] Yisel Liu EGFR-NON AF CONG[place]ESE 36 mL/min/1.73m2 Critically low >=60 [facility] Comment on above: Performed By: #### P HVEN #### [facility] [address] [address] [address] Yisel Liu Globulin (S) [Mass/Vol] 5.3 g/dL Normal [facility] Comment on above: Performed By: #### P HVEN #### [facility] [address] [address] [address] Yisel Liu Glucose [Mass/Vol] 236 mg/dL Critically high 74-106 [facility] Comment on above: Performed By: #### P HVEN #### [facility] [address] [address] [address] Yisel Liu Potassium [Moles/Vol] 4.2 mmol/L Normal 3.5-5.1 [facility] Comment on above: Performed By: #### P HVEN #### [facility] [address] [address] [address] Yisel Liu Protein [Mass/Vol] 8.0 g/dL Normal 6.4-8.[address] [facility] Comment on above: Performed By: #### P HVEN #### [facility] [address] [address] [address] Yisel Liu Sodium [Moles/Vol] 138 mmol/L Normal 136-145 [facility] Comment on above: Performed By: #### P HVEN #### [facility] [address] [address] [address] Yisel Liu Urea nitrogen [Mass/Vol] 42.0 mg/dL Critically high 7.0-18.0 [facility] Comment on above: Performed By: #### P HVEN #### [facility] [address] [address] [address] Yisel Liu Urea nitrogen/Creatinine [Mass ratio] 29.6 mg/mg Normal [facility] Comment on above: Performed By: #### P HVEN #### [facility] [address] [address] [address] Yisel Liu XR CHEST 1 Von [...] ZENON TURNER Date: 2022-02-25 13:01 Normal [facility] XR CHEST 1 V EXAMINATION: XR [...] BRITTANY YBARRA Date: 2022-02-25 06:38 Normal [facility] BNPon 02-24-2022 Natriuretic peptide B (Bld) [Mass/Vol] 3585.0 pg/mL Critically high <=1,800.0 [facility] Comment on above: Performed By: #### C MP, BNP #### [facility] [address] [place] [address] Dr. Yisel Liu CBC AUTO DIFFon 02-24-2022 BASO # 0.0 103/ul Normal 0.0-0.1 [facility] Comment on above: Performed By: #### C BC #### [facility] [address] [place] [address] Dr. Yisel Liu Basophils/100 WBC (Bld) 0.2 % Normal 0.2-2.0 [facility] Comment on above: Performed By: #### C BC #### [facility] [address] [place] [address] Dr. Yisel Liu EO # 0.0 103/ul Normal 0.0-0.7 [facility] Comment on above: Performed By: #### C BC #### [facility] [address] [place] [address] Dr. Yisel Liu Eosinophils/100 WBC (Bld) 0.0 % Critically low 0.9-7.0 [facility] Comment on above: Performed By: #### C BC #### [facility] [address] [place] [address] Dr. Yisel Liu Erythrocyte distribution width (RBC) [Ratio] 16.4 % Critically high 11.0-15.0 [facility] Comment on above: Performed By: #### C BC #### [facility] [address] [place] [address] Dr. Yisel Liu Hematocrit (Bld) [Volume fraction] 37.7 % Normal 36.0-48.0 [facility] Comment on above: Performed By: #### C BC #### [facility] [address] [place] [address] Dr. Yisel Liu Hemoglobin (Bld) [Mass/Vol] 11.8 g/dL Critically low 12.0-16.0 [facility] Comment on above: Performed By: #### C BC #### [facility] [address] [place] [address] Dr. Yisel Liu IG # 0.04 10e3/ul Critically high 0.00-0.[address] [facility] Comment on above: Performed By: #### C BC #### [facility] [address] [place] [address] Dr. Yisel Liu IG % 0.3 % Normal 0.0-0.5 [facility] Comment on above: Performed By: #### C BC #### [facility] [address] [place] [address] Dr. Yisel Liu LYMPH # 0.6 103/ul Critically low 1.2-3.8 [facility] Comment on above: Performed By: #### C BC #### [facility] [address] [place] [address] Dr. Yisel Liu Lymphocytes/100 WBC (Bld) 4.9 % Critically low 20.5-60.0 [facility] Comment on above: Performed By: #### C BC #### [facility] [address] [place] [address] Dr. Yisel Liu MANUAL DIFF REQ NO Normal [facility] Comment on above: Performed By: #### C BC #### [facility] [address] [address] [address] Yisel Liu MCH (RBC) [Entitic mass] 28.0 pg Normal 26.7-34.0 [facility] Comment on above: Performed By: #### C BC #### [facility] [address] [address] [address] Yisel Liu MCHC (RBC) [Mass/Vol] 31.3 g/dL Normal 29.9-35.2 [facility] Comment on above: Performed By: #### C BC #### [facility] [address] [address] [address] Yisel Liu MCV (RBC) [Entitic vol] 89.5 fL Normal 81.0-99.0 [facility] Comment on above: Performed By: #### C BC #### [facility] [address] [place] [address] Dr. Yisel Liu MONO # 0.8 103/ul Normal 0.3-0.8 [facility] Comment on above: Performed By: #### C BC #### [facility] [address] [address] [address] Yisel Liu Monocytes/100 WBC (Bld) 6.2 % Normal 1.7-12.0 [facility] Comment on above: Performed By: #### C BC #### [facility] [address] [address] [address] Yisel Liu NEUT # 11.5 103/ul Critically high 1.4-6.5 [facility] Comment on above: Performed By: #### C BC #### [facility] [address] [address] [address] Yisel Liu Neutrophils/100 WBC (Bld) 88.4 % Critically high 43.0-75.0 [facility] Comment on above: Performed By: #### C BC #### [facility] [address] [place] [address] Dr. Yisel Liu Platelet mean volume (Bld) [Entitic vol] 8.8 fL Critically low 9.5-13.5 [facility] Comment on above: Performed By: #### C BC #### [facility] [address] [address] [address] Yisel Liu PLT 361 103/ul Normal 150-450 [facility] Comment on above: Performed By: #### C BC #### [facility] [address] [address] [address] Yisel Liu RBC 4.21 106/ul Normal 4.20-5.40 [facility] Comment on above: Performed By: #### C BC #### [facility] [address] [place] [address] Dr. Yisel Liu WBC 13.0 103/ul Critically high 4.0-11.0 [facility] Comment on above: Performed By: #### C BC #### [facility] [address] [place] [address] Dr. Yisel Liu CULTURE URINEon 02-24-2022 CULTURE [...] Trimethoprim/Sulfamet hoxazole <=20 S F Normal [facility] Comment on above: Performed By: #### D IG #### [facility] [address] [place] [address] Dr. Yisel Liu PH VENOUS BLOODon 02-24-2022 PCO2 VENOUS 55.2 mmHg Critically high 40.0-52.0 [facility] Comment on above: Performed By: #### C BC #### [facility] [address] [place] [address] Dr. Yisel Liu pH VENOUS 7.439 Critically high 7.330-7.430 [facility] Comment on above: Performed By: #### C BC #### [facility] [address] [place] [address] Dr. Yisel Liu POINT OF CARE GLUCOSEon 12- Glucose [Mass/Vol] 232 mg/dL Critically high 74-106 [facility] Comment on above: Performed By: #### C MP, BNP #### [facility] [address] [place] [address] Dr. Yisel Liu Glucose [Mass/Vol] 198 mg/dL Critically high 74-106 [facility] Comment on above: Performed By: #### C MP, BNP #### [facility] [address] [place] [address] Dr. Yisel Liu Glucose [Mass/Vol] 270 mg/dL Critically high 74-106 [facility] Comment on above: Performed By: #### C MP, BNP #### [facility] [address] [place] [address] Dr. Yisel Liu Glucose [Mass/Vol] 324 mg/dL Critically high -106 [facility] Comment on above: Performed By: #### D IG #### [facility] [address] [place] [address] Dr. Yisel Liu PROF 14(COMP METB)on 022 Albumin [Mass/Vol] 2.9 g/dL Critically low 3.4-5.0 [facility] Comment on above: Performed By: #### C MP, BNP #### [facility] [address] [place] [address] Dr. Yisel Liu Albumin/Globulin [Mass ratio] 0.5 {ratio} Normal [facility] Comment on above: Performed By: #### C MP, BNP #### [facility] [address] [place] [address] Dr. Yisel Liu ALP [Catalytic activity/Vol] 64 U/L Normal 46-116 [facility] Comment on above: Performed By: #### C MP, BNP #### [facility] [address] [place] [address] Dr. Yisel Liu ALT [Catalytic activity/Vol] 27 U/L Normal 14-59 [facility] Comment on above: Performed By: #### C MP, BNP #### [facility] [address] [place] [address] Dr. Yisel Liu Anion gap [Moles/Vol] 10.8 mmol/L Normal [facility] Comment on above: Performed By: #### C MP, BNP #### [facility] [address] [place] [address] Dr. Yisel Liu AST [Catalytic activity/Vol] 44 U/L Critically high 15-37 [facility] Comment on above: Performed By: #### C MP, BNP #### [facility] [address] [place] [address] Dr. Yisel Liu Bilirubin [Mass/Vol] 0.4 mg/dL Normal 0.2-1.0 [facility] Comment on above: Performed By: #### C MP, BNP #### [facility] [address] [place] [address] Dr. Yisel Liu Calcium [Mass/Vol] 9.2 mg/dL Normal 8.5-10.1 [facility] Comment on above: Performed By: #### C MP, BNP #### [facility] [address] [place] [address] Dr. Yisel Liu Chloride [Moles/Vol] 96 mmol/L Critically low 98-107 [facility] Comment on above: Performed By: #### C MP, BNP #### [facility] [address] [place] [address] Dr. Yisel Liu CO2 [Moles/Vol] 36.6 mmol/L Critically high 21.0-32.0 [facility] Comment on above: Performed By: #### C MP, BNP #### [facility] [address] [place] [address] Dr. Yisel Liu Creatinine [Mass/Vol] 1.22 mg/dL Critically high 0.55-1.02 [facility] Comment on above: Performed By: #### C MP, BNP #### [facility] [address] [place] [address] Dr. Yisel Liu EGFR-AF CONGOLESE 52 mL/min/1.73m2 Critically low >=60 [facility] Comment on above: Performed By: #### C MP, BNP #### [facility] [address] [address] [address] Yisel Liu EGFR-NON AF CONG[place]ESE 43 mL/min/1.73m2 Critically low >=60 [facility] Comment on above: Performed By: #### C MP, BNP #### [facility] [address] [address] [address] Yisel Liu Globulin (S) [Mass/Vol] 5.3 g/dL Normal [facility] Comment on above: Performed By: #### C MP, BNP #### [facility] [address] [place] [address] Dr. Yisel Liu Glucose [Mass/Vol] 265 mg/dL Critically high 74-106 [facility] Comment on above: Performed By: #### C MP, BNP #### [facility] [address] [place] [address] Dr. Yisel Liu Potassium [Moles/Vol] 3.4 mmol/L Critically low 3.5-5.1 [facility] Comment on above: Performed By: #### C MP, BNP #### [facility] [address] [place] [address] Dr. Yisel Liu Protein [Mass/Vol] 8.2 g/dL Normal 6.4-8.[address] [facility] Comment on above: Performed By: #### C MP, BNP #### [facility] [address] [place] [address] Dr. Yisel Liu Sodium [Moles/Vol] 140 mmol/L Normal 136-[address] [facility] Comment on above: Performed By: #### C MP, BNP #### [facility] [address] [place] [address] Dr. Yisel Liu Urea nitrogen [Mass/Vol] 27.0 mg/dL Critically high 7.0-18.0 [facility] Comment on above: Performed By: #### C MP, BNP #### [facility] [address] [address] [address] Yisel Liu Urea nitrogen/Creatinine [Mass ratio] 22.1 mg/mg Normal [facility] Comment on above: Performed By: #### C MP, BNP #### [facility] [address] [place] [address] Dr. Yisel Liu T3, TOTAL (TRIIODOTHYRONINE) on 02-24-2022 T3, TOTAL 68 ng/dL Critically low 71-180 [facility] Comment on above: Performed By: #### C MP, BNP #### [facility] [address] [address] [address] Yisel Liu XR CHEST 1 Von [...] IDANIA CUEVAS Date: 2022-02-24 07:10 Normal [facility] BNPon 02-23-2022 Natriuretic peptide B (Bld) [Mass/Vol] 3654.0 pg/mL Critically high <=1,800.0 [facility] Comment on above: Performed By: #### C MP, BNP #### [facility] [address] [place] [address] Dr. Yisle Liu CBC AUTO DIFFon 02-23-2022 BASO # 0.0 103/ul Normal 0.0-0.1 [facility] Comment on above: Performed By: #### C BC #### [facility] [address] [place] [address] Dr. Yisel Liu Basophils/100 WBC (Bld) 0.0 % Critically low 0.2-2.0 [facility] Comment on above: Performed By: #### C BC #### [facility] [address] [address] [address] Yisel Liu EO # 0.0 103/ul Normal 0.0-0.7 [facility] Comment on above: Performed By: #### C BC #### [facility] [address] [place] [address] Dr. Yisel Liu Eosinophils/100 WBC (Bld) 0.0 % Critically low 0.9-7.0 [facility] Comment on above: Performed By: #### C BC #### [facility] [address] [place] [address] Dr. Yisel Liu Erythrocyte distribution width (RBC) [Ratio] 16.2 % Critically high 11.0-15.0 [facility] Comment on above: Performed By: #### C BC #### [facility] [address] [place] [address] Dr. Yisel Liu Hematocrit (Bld) [Volume fraction] 36.1 % Normal 36.0-48.0 [facility] Comment on above: Performed By: #### C BC #### [facility] [address] [place] [address] Dr. Yisel Liu Hemoglobin (Bld) [Mass/Vol] 11.5 g/dL Critically low 12.0-16.0 [facility] Comment on above: Performed By: #### C BC #### [facility] [address] [place] [address] Dr. Yisel Liu IG # 0.01 10e3/ul Normal 0.00-0.03 [facility] Comment on above: Performed By: #### C BC #### [facility] [address] [place] [address] Dr. Yisel Liu IG % 0.2 % Normal 0.0-0.5 [facility] Comment on above: Performed By: #### C BC #### [facility] [address] [place] [address] Dr. Yisel Liu LYMPH # 0.5 103/ul Critically low 1.2-3.8 [facility] Comment on above: Performed By: #### C BC #### [facility] [address] [place] [address] Dr. Yisel Liu Lymphocytes/100 WBC (Bld) 9.7 % Critically low 20.5-60.0 [facility] Comment on above: Performed By: #### C BC #### [facility] [address] [place] [address] Dr. Yisel Liu MANUAL DIFF REQ NO Normal [facility] Comment on above: Performed By: #### C BC #### [facility] [address] [place] [address] Dr. Yisel Liu MCH (RBC) [Entitic mass] 28.4 pg Normal 26.7-34.0 [facility] Comment on above: Performed By: #### C BC #### [facility] [address] [place] [address] Dr. Yisel Liu MCHC (RBC) [Mass/Vol] 31.9 g/dL Normal 29.9-35.2 [facility] Comment on above: Performed By: #### C BC #### [facility] [address] [place] [address] Dr. Yisel Liu MCV (RBC) [Entitic vol] 89.1 fL Normal 81.0-99.0 [facility] Comment on above: Performed By: #### C BC #### [facility] [address] [place] [address] Dr. Yisel Liu MONO # 0.2 103/ul Critically low 0.3-0.8 [facility] Comment on above: Performed By: #### C BC #### [facility] [address] [place] [address] Dr. Yisel Liu Monocytes/100 WBC (Bld) 3.6 % Normal 1.7-12.0 [facility] Comment on above: Performed By: #### C BC #### [facility] [address] [place] [address] Dr. Yisel Liu NEUT # 4.8 103/ul Normal 1.4-6.5 [facility] Comment on above: Performed By: #### C BC #### [facility] [address] [address] [address] Yisel Liu Neutrophils/100 WBC (Bld) 86.5 % Critically high 43.0-75.0 [facility] Comment on above: Performed By: #### C BC #### [facility] [address] [place] [address] Dr. Yisel Liu Platelet mean volume (Bld) [Entitic vol] 9.0 fL Critically low 9.5-13.5 [facility] Comment on above: Performed By: #### C BC #### [facility] [address] [address] [address] Yisel Liu PLT 278 103/ul Normal 150-450 [facility] Comment on above: Performed By: #### C BC #### [facility] [address] [address] [address] Yisel Liu RBC 4.05 106/ul Critically low 4.20-5.40 [facility] Comment on above: Performed By: #### C BC #### [facility] [address] [place] [address] Dr. Yisel Liu WBC 5.6 103/ul Normal 4.0-11.0 [facility] Comment on above: Performed By: #### C BC #### [facility] [address] [place] [address] Dr. Yisel Liu ECHOCARDIO M/2D COMPLETEon 1 04-26-2021 ECHOCARDIO M/2D COMPLETE Patient: NAVEED PRADO Exam Date: 02/23/2022 : 1945 Gender:F Ordering : DR KARY CATHERINE . Admission #: [id number] Family : Order #: [id number] CLICK HERE TO VIEW EXAM ECHOCARDIOGRAM REPORT [...] (Peak Joseph): 1.55 cm2, 1.55 cm2 Deceleration Carver: 1.84 m/s2 Pressure Half-Time: 561.41 ms Peak [...] Hill M.D. on 02/25/2022 at 12:52 Normal [facility] PH VENOUS BLOODon 02-23-2022 PCO2 VENOUS 48.0 mmHg Normal 40.0-52.0 [facility] Comment on above: Performed By: #### P HVEN #### [facility] [address] [place] [address] Dr. Yisel Liu pH VENOUS 7.479 Critically high 7.330-7.430 [facility] Comment on above: Performed By: #### P HVEN #### [facility] [address] [place] [address] Dr. Yisel Liu POINT OF CARE GLUCOSEon Glucose [Mass/Vol] 323 mg/dL Critically high -106 [facility] Comment on above: Performed By: #### C MP, BNP #### [facility] [address] [place] [address] Dr. Yisel Liu Glucose [Mass/Vol] 372 mg/dL Critically high -106 [facility] Comment on above: Performed By: #### C MP, BNP #### [facility] [address] [place] [address] Dr. Yisel Liu Glucose [Mass/Vol] 347 mg/dL Critically high -106 [facility] Comment on above: Performed By: #### D IG #### [facility] [address] [place], [place] [id number] Dr. Yisel Liu Glucose [Mass/Vol] 474 mg/dL Critically high 74-106 [facility] Comment on above: Performed By: #### C MP, BNP #### [facility] [address] [place] [address] Dr. Yisel Liu PROF 14(COMP METB)on 022 Albumin [Mass/Vol] 2.8 g/dL Critically low 3.4-5.0 [facility] Comment on above: Performed By: #### C MP, BNP #### [facility] [address] [place] [address] Dr. Yisel Liu Albumin/Globulin [Mass ratio] 0.5 {ratio} Normal [facility] Comment on above: Performed By: #### C MP, BNP #### [facility] [address] [place] [address] Dr. Yisel Liu ALP [Catalytic activity/Vol] 72 U/L Normal 46-116 [facility] Comment on above: Performed By: #### C MP, BNP #### [facility] [address] [place] [address] Dr. Yisel Liu ALT [Catalytic activity/Vol] 14 U/L Normal 14-59 [facility] Comment on above: Performed By: #### C MP, BNP #### [facility] [address] [place] [address] Dr. Yisel Liu Anion gap [Moles/Vol] 11.3 mmol/L Normal [facility] Comment on above: Performed By: #### C MP, BNP #### [facility] [address] [place] [address] Dr. Yisel Liu AST [Catalytic activity/Vol] 23 U/L Normal 15-37 [facility] Comment on above: Performed By: #### C MP, BNP #### [facility] [address] [place] [address] Dr. Yisel Liu Bilirubin [Mass/Vol] 0.5 mg/dL Normal 0.2-1.0 [facility] Comment on above: Performed By: #### C MP, BNP #### [facility] [address] [address] [address] Yisel Liu Calcium [Mass/Vol] 9.0 mg/dL Normal 8.5-10.1 [facility] Comment on above: Performed By: #### C MP, BNP #### [facility] [address] [address] [address] Yisel Liu Chloride [Moles/Vol] 92 mmol/L Critically low 98-107 [facility] Comment on above: Performed By: #### C MP, BNP #### [facility] [address] [address] [address] Yisel Liu CO2 [Moles/Vol] 34.8 mmol/L Critically high 21.0-32.0 [facility] Comment on above: Performed By: #### C MP, BNP #### [facility] [address] [place] [address] Dr. Yisel Liu Creatinine [Mass/Vol] 1.00 mg/dL Normal 0.55-1.02 [facility] Comment on above: Performed By: #### C MP, BNP #### [facility] [address] [place] [address] Dr. Yisel Liu EGFR-AF CONGOLESE >60 Normal >=60 [facility] Comment on above: Performed By: #### C MP, BNP #### [facility] [address] [place] [address] Dr. Yisel Liu EGFR-NON AF CONGOLESE 54 mL/min/1.73m2 Critically low >=60 [facility] Comment on above: Performed By: #### C MP, BNP #### [facility] [address] [place] [address] Dr. Yisel Liu Globulin (S) [Mass/Vol] 5.5 g/dL Normal [facility] Comment on above: Performed By: #### C MP, BNP #### [facility] [address] [place] [address] Dr. Yisel Liu Glucose [Mass/Vol] 416 mg/dL Critically high 74-106 [facility] Comment on above: Performed By: #### C MP, BNP #### [facility] [address] [address] [address] Yisel Liu Potassium [Moles/Vol] 3.1 mmol/L Critically low 3.5-5.1 [facility] Comment on above: Performed By: #### C MP, BNP #### [facility] [address] [address] [address] Yisel Liu Protein [Mass/Vol] 8.3 g/dL Critically high 6.4-8.2 [facility] Comment on above: Performed By: #### C MP, BNP #### [facility] [address] [address] [address] Yisel Liu Sodium [Moles/Vol] 135 mmol/L Critically low 136-145 [facility] Comment on above: Performed By: #### C MP, BNP #### [facility] [address] [place] [address] Dr. Yisel Liu Urea nitrogen [Mass/Vol] 20.0 mg/dL Critically high 7.0-18.0 [facility] Comment on above: Performed By: #### C MP, BNP #### [facility] [address] [place] [address] Dr. Yisel Liu Urea nitrogen/Creatinine [Mass ratio] 20.0 mg/mg Normal [facility] Comment on above: Performed By: #### C MP, BNP #### [facility] [address] [place] [address] Dr. Yisel Liu XR CHEST 1 Von [...] BRITTANY YBARRA Date: 2022-02-23 07:12 Normal [facility] AMMONIAon 02-22-2022 Ammonia (P) [Moles/Vol] 36 umol/L Critically high 11-32 [facility] Comment on above: Performed By: #### C MP, BNP #### [facility] [address] [place] [address] Dr. Yisel Liu BLOOD GASES BTYon 02-22-2022 02 MODE SIMPLE MASK Normal [facility] Comment on above: Performed By: #### A BG #### [facility] [address] [place] [address] Dr. Yisel Liu ALLENS TEST Positive [facility] Comment on above: Performed By: #### A BG #### [facility] [address] [place] [address] Dr. Yisel Liu Base excess Calc (Bld) [Moles/Vol] 0.7 mmol/L Normal -2.0-2.0 [facility] Comment on above: Performed By: #### A BG #### [facility] [address] [place] [address] Dr. Yisel Liu BIPAP PRESSURE Normal [facility] Comment on above: Performed By: #### A BG #### [facility] [address] [place] [address] Dr. Yisel Liu CPAP [facility] Comment on above: Performed By: #### A BG #### [facility] [address] [place] [address] Dr. Yisel Liu FIO2 [facility] Comment on above: Performed By: #### A BG #### [facility] [address] [place] [address] Dr. Yisel Liu HCO3 (Bld) [Moles/Vol] 28.8 mmol/L Critically high 22.0-26.0 [facility] Comment on above: Performed By: #### A BG #### [facility] [address] [place] [address] Dr. Yisel Liu LPM 6 [facility] Comment on above: Performed By: #### A BG #### [facility] [address] [address] [address] Yisel Liu MINUTE VOLUME Normal [facility] Comment on above: Performed By: #### A BG #### [facility] [address] [place] [address] Dr. Yisel Liu Oxygen (Bld) [Partial pressure] 82.6 mm[Hg] Normal 80.0-100.0 [facility] Comment on above: Performed By: #### A BG #### [facility] [address] [place] [address] Dr. Yisel Liu Oxygen saturation in Blood 93.0 % Critically low 95.0-100.0 [facility] Comment on above: Performed By: #### A BG #### [facility] [address] [place] [address] Dr. Yisel Liu PCO2 74.3 mmHg Critically high 35.0-45.0 [facility] Comment on above: Performed By: #### A BG #### [facility] [address] [place] [address] Dr. Yisel Liu PEEP [facility] Comment on above: Performed By: #### A BG #### [facility] [address] [place] [address] Dr. Yisel Liu pH (Bld) 7.197 [pH] Critically low 7.350-7.450 [facility] Comment on above: Performed By: #### A BG #### [facility] [address] [place] [address] Dr. Yisel Liu PIP [facility] Comment on above: Performed By: #### A BG #### [facility] [address] [place] [address] Dr. Yisel Liu PS [facility] Comment on above: Performed By: #### A BG #### [facility] [address] [place] [address] Dr. Yisel Liu PUNCTURE SITE RR [facility] Comment on above: Performed By: #### A BG #### [facility] [address] [place] [address] Dr. Yisel Liu RATE [facility] Comment on above: Performed By: #### A BG #### [facility] [address] [place] [address] Dr. Yisel Liu VENT MODE [facility] Comment on above: Performed By: #### A BG #### [facility] [address] [place] [address] Dr. Yisel Liu [facility] Comment on above: Performed By: #### A BG #### [facility] [address] [place] [address] Dr. Yisel Liu BNPon 02-22-2022 Natriuretic peptide B (Bld) [Mass/Vol] 2771.0 pg/mL Critically high <=1,800.0 [facility] Comment on above: Performed By: #### C MP, BNP #### [facility] [address] [place] [address] Dr. Yisel Liu CARDIAC MIKEY 3-6on 2 CK [Catalytic activity/Vol] 18 U/L Critically low 26-192 [facility] Comment on above: Performed By: #### C BC #### [facility] [address] [place] [address] Dr. Yisel Liu CK.MB [Mass/Vol] ng/mL Normal <=3.60 [facility] Comment on above: Performed By: #### C BC #### [facility] [address] [place] [address] Dr. Yisel Liu HSTROP 10.3 pg/mL Normal 4.0-51.3 [facility] Comment on above: Result Comment: CUT- OFF POINTS HAVE BEEN ESTABLISHED BASED ON THE FOURTH UNIVERSAL DEFINITIONS OF MYOCARDIAL INFARCTION. THE UPPER REFERENCE LIMIT (URL) OF TROPONIN, DEFINED THE 99TH PERCENTILE OF cTnI DISTRIBUTION IN A REFERENCE POPULATION, HAS BEEN CONFIRMED THE DECISION THRESHOLD FOR [place] DIAGNOSIS. Performed By: #### C BC #### [facility] [address] [place] [address] Dr. Yisel Liu CK [Catalytic activity/Vol] 36 U/L Normal 26-192 [facility] Comment on above: Performed By: #### C MP, BNP #### [facility] [address] [place] [address] Dr. Yisel SIMON.MB [Mass/Vol] ng/mL Normal <=3.60 [facility] Comment on above: Performed By: #### C MP, BNP #### [facility] [address] [address] [address] Yisel Liu HSTROP 9.8 pg/mL Normal 4.0-51.3 [facility] Comment on above: Result Comment: CUT- OFF POINTS HAVE BEEN ESTABLISHED BASED ON THE FOURTH UNIVERSAL DEFINITIONS OF MYOCARDIAL INFARCTION. THE UPPER REFERENCE LIMIT (URL) OF TROPONIN, DEFINED THE 99TH PERCENTILE OF cTnI DISTRIBUTION IN A REFERENCE POPULATION, HAS BEEN CONFIRMED THE DECISION THRESHOLD FOR [place] DIAGNOSIS. Performed By: #### C MP, BNP #### [facility] [address] [place] [address] Dr. Yisel Liu CK [Catalytic activity/Vol] 15 U/L Critically low 26-192 [facility] Comment on above: Performed By: #### C MP, BNP #### [facility] [address] [place] [address] Dr. Yisel SIMON.MB [Mass/Vol] ng/mL Normal <=3.60 [facility] Comment on above: Performed By: #### C MP, BNP #### [facility] [address] [place] [address] Dr. Yisel Liu HSTROP 9.7 pg/mL Normal 4.0-51.3 [facility] Comment on above: Result Comment: CUT- OFF POINTS HAVE BEEN ESTABLISHED BASED ON THE FOURTH UNIVERSAL DEFINITIONS OF MYOCARDIAL INFARCTION. THE UPPER REFERENCE LIMIT (URL) OF TROPONIN, DEFINED THE 99TH PERCENTILE OF cTnI DISTRIBUTION IN A REFERENCE POPULATION, HAS BEEN CONFIRMED THE DECISION THRESHOLD FOR [place] DIAGNOSIS. Performed By: #### C MP, BNP #### [facility] [address] [place] [address] Dr. Yisel Liu CK [Catalytic activity/Vol] 8 U/L Critically low 26-192 [facility] Comment on above: Performed By: #### C MREP #### [facility] [address] [address] [address] Yisel Liu Performed By: #### D IG #### [facility] [address] [place] [address] Dr. Yisel Liu CK.MB [Mass/Vol] ng/mL Normal <=3.60 [facility] Comment on above: Performed By: #### C MREP #### [facility] [address] [address] [address] Yisel Liu Performed By: #### D IG #### [facility] [address] [place] [address] Dr. Yisel Liu HSTROP 9.4 pg/mL Normal 4.0-51.3 [facility] Comment on above: Result Comment: CUT- OFF POINTS HAVE BEEN ESTABLISHED BASED ON THE FOURTH UNIVERSAL DEFINITIONS OF MYOCARDIAL INFARCTION. THE UPPER REFERENCE LIMIT (URL) OF TROPONIN, DEFINED THE 99TH PERCENTILE OF cTnI DISTRIBUTION IN A REFERENCE POPULATION, HAS BEEN CONFIRMED THE DECISION THRESHOLD FOR [place] DIAGNOSIS. Performed By: #### C MREP #### [facility] [address] [place] [address] Dr. Yisel Liu CARDIAC MIKEY ADMITon 022 HSTROP 11.1 pg/mL Normal 4.0-51.3 [facility] Comment on above: Result Comment: CUT- OFF POINTS HAVE BEEN ESTABLISHED BASED ON THE FOURTH UNIVERSAL DEFINITIONS OF MYOCARDIAL INFARCTION. THE UPPER REFERENCE LIMIT (URL) OF TROPONIN, DEFINED THE 99TH PERCENTILE OF cTnI DISTRIBUTION IN A REFERENCE POPULATION, HAS BEEN CONFIRMED THE DECISION THRESHOLD FOR [place] DIAGNOSIS. Performed By: #### D IG #### [facility] [address] [place] [address] Dr. Yisel Liu YULI 16 ng/mL Normal 9-82 [facility] Comment on above: Performed By: #### D IG #### [facility] [address] [place] [address] Dr. Yisel Liu CBC AUTO DIFFon 02-22-2022 BASO # 0.0 103/ul Normal 0.0-0.1 [facility] Comment on above: Performed By: #### C BC #### [facility] [address] [address] [address] Yisel Liu Basophils/100 WBC (Bld) 0.2 % Normal 0.2-2.0 [facility] Comment on above: Performed By: #### C BC #### [facility] [address] [place] [address] Dr. Yisel Liu EO # 0.1 103/ul Normal 0.0-0.7 [facility] Comment on above: Performed By: #### C BC #### [facility] [address] [place] [address] Dr. Yisel Liu Eosinophils/100 WBC (Bld) 0.7 % Critically low 0.9-7.0 [facility] Comment on above: Performed By: #### C BC #### [facility] [address] [place] [address] Dr. Yisel Liu Erythrocyte distribution width (RBC) [Ratio] 17.0 % Critically high 11.0-15.0 [facility] Comment on above: Performed By: #### C BC #### [facility] [address] [place] [address] Dr. Yisel Liu Hematocrit (Bld) [Volume fraction] 33.1 % Critically low 36.0-48.0 [facility] Comment on above: Performed By: #### C BC #### [facility] [address] [place] [address] Dr. Yisel Liu Hemoglobin (Bld) [Mass/Vol] 10.0 g/dL Critically low 12.0-16.0 [facility] Comment on above: Performed By: #### C BC #### [facility] [address] [place] [address] Dr. Yisel Liu IG # 0.08 10e3/ul Critically high 0.00-0.[address] [facility] Comment on above: Performed By: #### C BC #### [facility] [address] [place] [address] Dr. Yisel Liu IG % 0.9 % Critically high 0.0-0.5 [facility] Comment on above: Performed By: #### C BC #### [facility] [address] [place] [address] Dr. Yisel Liu LYMPH # 0.8 103/ul Critically low 1.2-3.8 [facility] Comment on above: Performed By: #### C BC #### [facility] [address] [place] [address] Dr. Yisel Liu Lymphocytes/100 WBC (Bld) 9.2 % Critically low 20.5-60.0 [facility] Comment on above: Performed By: #### C BC #### [facility] [address] [place] [address] Dr. Yisel Liu MANUAL DIFF REQ NO Normal [facility] Comment on above: Performed By: #### C BC #### [facility] [address] [place] [address] Dr. Yisel Liu MCH (RBC) [Entitic mass] 28.3 pg Normal 26.7-34.0 [facility] Comment on above: Performed By: #### C BC #### [facility] [address] [place] [address] Dr. Yisel Liu MCHC (RBC) [Mass/Vol] 30.2 g/dL Normal 29.9-35.2 [facility] Comment on above: Performed By: #### C BC #### [facility] [address] [place] [address] Dr. Yisel Liu MCV (RBC) [Entitic vol] 93.8 fL Normal 81.0-99.0 [facility] Comment on above: Performed By: #### C BC #### [facility] [address] [place] [address] Dr. Yisel Liu MONO # 0.8 103/ul Normal 0.3-0.8 [facility] Comment on above: Performed By: #### C BC #### [facility] [address] [place] [address] Dr. Yisel Liu Monocytes/100 WBC (Bld) 8.7 % Normal 1.7-12.0 [facility] Comment on above: Performed By: #### C BC #### [facility] [address] [place] [address] Dr. Yisel Liu NEUT # 6.9 103/ul Critically high 1.4-6.5 [facility] Comment on above: Performed By: #### C BC #### [facility] [id number] [address] Yisel Liu Neutrophils/100 WBC (Bld) 80.3 % Critically high 43.0-75.0 [facility] Comment on above: Performed By: #### C BC #### [facility] [address] [place] [address] Dr. Yisel Liu Platelet mean volume (Bld) [Entitic vol] 8.8 fL Critically low 9.5-13.5 [facility] Comment on above: Performed By: #### C BC #### [facility] [address] [place] [address] Dr. Yisel Liu PLT 269 103/ul Normal 150-450 [facility] Comment on above: Performed By: #### C BC #### [facility] [address] [place] [address] Dr. Yisel Liu RBC 3.53 106/ul Critically low 4.20-5.40 [facility] Comment on above: Performed By: #### C BC #### [facility] [address] [place] [address] Dr. Yisel Liu WBC 8.7 103/ul Normal 4.0-11.0 [facility] Comment on above: Performed By: #### C BC #### [facility] [address] [place] [address] HEAD WO CONon [...] KARSTEN MUJICA Date: 2022-02-22 06:27 Normal [facility] CTA CHEST WO W CONon 022 [...] ZENON TURNER Date: 2022-02-22 08:00 Normal [facility] CULTURE BLOODon 02-22-2022 Microscopic examination of blood, culture Culture Observations: NO GROWTH AT 5 DAYS. Normal [facility] Comment on above: Performed By: #### D IG #### [facility] [address] [place] [address] Dr. Yisel Liu Covid-19 PCR ([facility])on SARS-CoV-2 (COVID-19) RNA JACINTA+probe Ql (Unsp spec) Not detected Normal NOT DETECTED [facility] Comment on above: Result Comment: When [...] for this test is supported by the [place] Technician of [employer] and Human Service's declaration that [...] used). Performed By: #### C BC #### [facility] [address] [place] [address] Dr. Yisel Liu DIGOXINon 02-22-2022 DIG 0.5 ng/mL Critically low 0.9-2.0 [facility] Comment on above: Performed By: #### D IG #### [facility] [address] [place] [address] Dr. Yisel Liu ER URINE PROFILEon 2 Bilirubin Ql (U) Negative Normal NEGATIVE [facility] Comment on above: Performed By: #### P HVEN #### [facility] [address] [place] [address] Dr. Yisel Liu Clarity (U) CLEAR Normal CLEAR [facility] Comment on above: Performed By: #### P HVEN #### [facility] [address] [place] [address] Dr. Yisel Liu Color (U) YELLOW Normal YELLOW [facility] Comment on above: Performed By: #### P HVEN #### [facility] [address] [place] [address] Dr. Yisel YODER A micrscopic examination will be performed if indicated. Normal [facility] Comment on above: Performed By: #### P HVEN #### [facility] [address] [place] [address] Dr. Yisel Liu Glucose Ql (U) Negative Normal NEGATIVE The [facility] Comment on above: Performed By: #### P HVEN #### [facility] [address] [address] [address] Yisel Liu Hemoglobin Ql (U) Negative Normal NEGATIVE [facility] Comment on above: Performed By: #### P HVEN #### [facility] [address] [place] [address] Dr. Yisel Liu Ketones Ql (U) TRACE Abnormal NEGATIVE [facility] Comment on above: Performed By: #### P HVEN #### [facility] [address] [place] [address] Dr. Yisel Liu LEUKOCYTES TRACE Abnormal NEGATIVE [facility] Comment on above: Performed By: #### P HVEN #### [facility] [address] [place] [address] Dr. Yisel Liu Nitrite Ql (U) Positive Abnormal NEGATIVE [facility] Comment on above: Performed By: #### P HVEN #### [facility] [address] [place] [address] Dr. Yisel Liu pH (U) 5.5 [pH] Normal 5-9 [facility] Comment on above: Performed By: #### P HVEN #### [facility] [address] [place] [address] Dr. Yisel Liu SPEC GRAVITY >=1.030 Abnormal 1.005-<=1.025 [facility] Comment on above: Performed By: #### P HVEN #### [facility] [address] [place] [address] Dr. Yisel Liu UA PROTEIN TRACE Normal NEGATIVE/ TRACE [facility] Comment on above: Performed By: #### P HVEN #### [facility] [address] [address] [address] Yisel Liu UR MICRO IND INDICATED Normal [facility] Comment on above: Performed By: #### P HVEN #### [facility] [address] [place] [address] Dr. Yisel Liu Urobilinogen Qn (U) 1.0 {Krystian'U}/dL Normal 0.2 - 1. 0 [facility] Comment on above: Performed By: #### P HVEN #### [facility] [address] [address] [address] Yisel Liu INFLUENZA A AND B AGon 02-22 INFLUBNEGH SEE BELOW Normal [facility] Comment on above: Result Comment: Nega tive for Flu B protein antigen. Infection due to Flu B cannot be ruled out. Flu B antigen in the sample may be below the detection limit of the test. Performed By: #### C MP, BNP #### [facility] [address] [place] [address] Dr. Yisel Liu INFLUENZA A AG Positive Abnormal NEGATIVE SEE COMMENT [facility] Comment on above: Performed By: #### C MP, BNP #### [facility] [address] [place] [address] Dr. Yisel Liu INFLUENZA B AG Negative Normal NEGATIVE SEE COMMENT [facility] Comment on above: Performed By: #### C MP, BNP #### [facility] [address] [place] [address] Dr. Yisel Liu INFLUPOSH SEE BELOW Normal [facility] Comment on above: Result Comment: NOTE : Live attenuated influenzae vaccine viruses can cause a positive result for a rapid influenza diagnostic test if administered up to 7 days prior to rapid testing. Performed By: #### C MP, BNP #### [facility] [address] [place] [address] Dr. Yisel Liu INTERNAL CONTROLS Within Normal Limits Normal Wi thin Normal Limits [facility] Comment on above: Performed By: #### C MP, BNP #### [facility] [address] [place] [address] Dr. Yisel Liu LACTATE/LACTIC ACIDon 2021 Lactate [Moles/Vol] 4.1 mmol/L Critically high 0.4-1.9 [facility] Comment on above: Performed By: #### C MP, BNP #### [facility] [address] [place] [address] Dr. Yisel Liu Lactate [Moles/Vol] 3.3 mmol/L Critically high 0.4-1.9 [facility] Comment on above: Performed By: #### C BC #### [facility] [address] [place] [address] Dr. Yisel Liu Lactate [Moles/Vol] 3.2 mmol/L Critically high 0.4-1.9 [facility] Comment on above: Performed By: #### C BC #### [facility] [address] [place] [address] Dr. Yisel Liu MAGNESIUMon 02-22-2022 Magnesium [Mass/Vol] 1.6 mg/dL Critically low 1.8-2.4 [facility] Comment on above: Performed By: #### C BC #### [facility] [address] [place] [address] Dr. Yisel Liu OCC BLD IMMUNOASSAYon 2021 OCCULT BLOOD Negative Normal NEGATIVE [facility] Comment on above: Performed By: #### C BC #### [facility] [address] [place] [address] Dr. Yisel Liu PH VENOUS BLOODon 02-22-2022 PCO2 VENOUS 44.3 mmHg Normal 40.0-52.0 [facility] Comment on above: Performed By: #### C MP, BNP #### [facility] [address] [place] [address] Dr. Yisel Liu pH VENOUS 7.410 Normal 7.330-7.430 [facility] Comment on above: Performed By: #### C MP, BNP #### [facility] [address] [place] [address] Dr. Yisel Liu POINT OF CARE GLUCOSEon Glucose [Mass/Vol] 313 mg/dL Critically high 74-106 [facility] Comment on above: Performed By: #### P OCGLUC #### [facility] [address] [place] [address] Dr. Yisel Liu Glucose [Mass/Vol] 240 mg/dL Critically high 74-106 [facility] Comment on above: Performed By: #### C MP, BNP #### [facility] [address] [place] [address] Dr. Yisel Liu Glucose [Mass/Vol] 226 mg/dL Critically high 74-106 [facility] Comment on above: Performed By: #### C MP, BNP #### [facility] [address] [place] [address] Dr. Yisel Liu PROF CHEM 8 (BAS METB)on Anion gap [Moles/Vol] 11.2 mmol/L Normal [facility] Comment on above: Performed By: #### D IG #### [facility] [address] [place] [address] Dr. Yisel Liu Calcium [Mass/Vol] 9.0 mg/dL Normal 8.5-10.1 [facility] Comment on above: Performed By: #### D IG #### [facility] [address] [place] [address] Dr. Yisel Liu Chloride [Moles/Vol] 100 mmol/L Normal 98-107 [facility] Comment on above: Performed By: #### D IG #### [facility] [address] [place] [address] Dr. Yisel Liu CO2 [Moles/Vol] 32.1 mmol/L Critically high 21.0-32.0 [facility] Comment on above: Performed By: #### D IG #### [facility] [address] [place] [address] Dr. Yisel Liu Creatinine [Mass/Vol] 0.71 mg/dL Normal 0.55-1.02 [facility] Comment on above: Performed By: #### D IG #### [facility] [address] [place] [address] Dr. Yisel Liu EGFR-AF CONGOLESE >60 Normal >=60 [facility] Comment on above: Performed By: #### D IG #### [facility] [address] [address] [address] Yisel Liu EGFR-NON AF CONG[place]ESE >60 Normal >=60 [facility] Comment on above: Performed By: #### D IG #### [facility] [address] [address] [address] Yisel Liu Glucose [Mass/Vol] 118 mg/dL Critically high 74-106 [facility] Comment on above: Performed By: #### D IG #### [facility] [address] [address] [address] Yisel Liu Potassium [Moles/Vol] 4.3 mmol/L Normal 3.5-5.1 [facility] Comment on above: Performed By: #### D IG #### [facility] [address] [address] [address] Yisel Liu Sodium [Moles/Vol] 139 mmol/L Normal 136-145 [facility] Comment on above: Performed By: #### D IG #### [facility] [address] [address] [address] Yisel Liu Urea nitrogen [Mass/Vol] 14.0 mg/dL Normal 7.0-18.0 [facility] Comment on above: Performed By: #### D IG #### [facility] [address] [address] [address] Yisel Liu Urea nitrogen/Creatinine [Mass ratio] 19.7 mg/mg Normal [facility] Comment on above: Performed By: #### D IG #### [facility] [address] [address] [address] Yisel Liu T4on 02-22-2022 T4 [Mass/Vol] 9.40 ug/dL Normal 4.80-13.90 [facility] Comment on above: Performed By: #### C BC #### [facility] [address] [address] [address] Yisel Liu TSHon 02-22-2022 TSH 1.438 uIU/mL Normal 0.358-3.740 [facility] Comment on above: Performed By: #### C BC #### [facility] [address] [place] [address] Dr. Yisel Liu URINE MICROSCOPIC ONLYon BACTERIA LARGE Abnormal NONE SEEN [facility] Comment on above: Performed By: #### P HVEN #### [facility] [address] [place] [address] Dr. Yisel Liu Bacteria identified Cx Nom (U) INDICATED Normal [facility] Comment on above: Performed By: #### P HVEN #### [facility] [address] [place] [address] Dr. Yisel Liu CAST NONE SEEN Normal NONE SEEN [facility] Comment on above: Performed By: #### P HVEN #### [facility] [address] [place] [address] Dr. Yisel Lui Crystals LM Nom (Urine sed) NONE SEEN Normal NONE SEEN [facility] Comment on above: Performed By: #### P HVEN #### [facility] [address] [place] [address] Dr. Yisel Liu Epithelial cells LM Ql (Urine sed) FEW Abnormal NONE SEEN /RARE [facility] Comment on above: Performed By: #### P HVEN #### [facility] [address] [place] [address] Dr. Yisel Liu MUCOUS TRACE Abnormal NONE SEEN [facility] Comment on above: Performed By: #### P HVEN #### [facility] [address] [place] [address] Dr. Yisel Liu RBC 0-2 Normal 0-2 [facility] Comment on above: Performed By: #### P HVEN #### [facility] [address] [place] [address] Dr. Yisel Liu WBC (U) [#/Vol] /uL Abnormal NONE SEEN The [facility] Comment on above: Performed By: #### P HVEN #### [facility] [address] [place] [address] Dr. Yisel Liu XR CHEST 1 Von [...] by: ANUSHKA FLANAGAN Date: 2022-02-22 07:17 Normal [facility] Encounters Encounter Date Encounter Type Care Provider Facility Start: 09-06-2023 End: 09-09-2023 Evaluation and management of inpatient MARY KAY MAJOR [facility] Start: 02-22-2022 End: 02-26-2022 Evaluation and management of inpatient DR KARY CATHERINE Facility: Payers Date Payer Category Payer Medicaid [id number] 1960 Medicaid [id number] 1960 Medicare [id number] 1945 Unknown [id number] 1945 Unknown [id number] Summary Purpose Family History No Family History Records FoundNo Family History Records Found Advance Directives No Advanced Directives Records FoundNo Advanced Directives Records Found Additional Source Comments INFORMATION SOURCE (unrecogn ized section and content) DATE CREATED AUTHOR 02/28/2022 [facility] DATE CREATED AUTHOR AUTHOR'S ORGANIZ ATION 09/15/2023 [facility] FOR RECORDS PERTAINING TO PATIENTS WHO [...] BE BASED ON THE PRIMARY CLINICAL RECORDS. [facility] [employer] [facility]. provides no warranty or guarantee of the accuracy or completeness of information in this document.
--- NOTE | 2023-10-06 11:27 | XR_ITS ---
The [address] [address] Patient Name: NAVEED PRADO MRN: [id number] date: 1945 Sex: F Assigned Patient Location: ER Current Patient Location: ER Accession/Order Number: [id number] Exam Date: 10/06/2023 11:40 Report Date: 10/06/2023 12:06 At the request of: BRET GUSMAN Procedure: XR chest 1V EXAM: XR chest 1V HISTORY: Arrhythmia COMPARISON: 09/24/2023. TECHNIQUE: Chest AP portable upright FINDINGS: There are low lung volumes, with small to moderate left effusion. Left effusion is improving. Left mid to lower lung airspace disease is similar to prior study. Right lung without consolidation or effusion. No pneumothorax. There is peribronchial calcification and mild wall thickening. There is aortic atherosclerosis and stable mild cardiomegaly. Pulmonary vasculature is normal. Patient is diffusely osteopenic. Chronic left shoulder posttraumatic deformity. XR/XR chest 1V IMPRESSION: 1. Expiratory chest with slight improvement in [id number] left effusion since study 09/24/2023. Left mid to lower lung airspace disease is stable, from atelectasis or pneumonia. Continued clinical and radiographic follow-up to resolution. 2. Bronchial calcifications and probable bronchitis that may be acute or chronic. Right lung without consolidation or effusion. 3. Atherosclerosis and cardiomegaly, without pulmonary edema. Electronically authenticated by: MARLINE LYN Date: 10/06/2023 12:06
[2023-10-06] MEDS: 0.9 % SODIUM CHLORIDE 500 ML IV (11:33)
[2023-10-06 11:34] LABS: Basophils Percent Auto 0.2 % (0.2-2.0); Eosinophils Absolute Auto 0.2 10^3/uL (0.0-0.7); Eosinophils Percent Auto 1.8 % (0.9-7.0); Hematocrit 28.6 % (36.0-48.0); Hemoglobin 8.4 g/dL (12.0-16.0); Immature Granulocytes Abs Auto 0.07 10^3/uL (0.00-0.03); Immature Granulocytes Pct Auto 0.6 % (0.0-0.5); Lymphocytes Absolute Auto 1.4 10^3/uL (1.2-3.8); Mean Corpuscular HGB Conc 29.4 g/dL (29.9-35.2); Mean Corpuscular Hemoglobin 28.7 pg (26.7-34.0); Mean Corpuscular Volume 97.6 fL (81.0-99.0); Mean Platelet Volume 8.7 fL (9.5-13.5); Monocytes Absolute Auto 0.8 10^3/uL (0.3-0.8); Neutrophils Absolute Auto 8.8 10^3/uL (1.4-6.5); Neutrophils Percent Auto 78.4 % (43.0-75.0); Platelet Count 360 10^3/uL (150-450); Red Blood Count 2.93 10^6/uL (4.20-5.40); White Blood Count 11.2 10^3/uL (4.0-11.0)
[2023-10-06 11:39] LABS: INR 1.56; Prothrombin Time 15.8 sec (9.0-11.6)
[2023-10-06 11:47] LABS: Alanine Aminotransferase 12 U/L (14-59); Albumin Globulin Ratio 0.5; Albumin Level 2.2 g/dL (3.4-5.0); Alkaline Phosphatase 59 U/L (46-116); Anion Gap 8.7; Aspartate Amino Transferase 10 U/L (15-37); BUN Creatinine Ratio 17.8; Bilirubin Total 0.4 mg/dL (0.2-1.0); Calcium 9.4 mg/dL (8.5-10.1); Carbon Dioxide 36.1 mmol/L (21.0-32.0); Chloride 98 mmol/L (98-107); Estimated GFR (African America >60 (>=60); Estimated GFR (Non-African Ame >60 (>=60); Globulin 4.8 g/dL; Glucose 155 mg/dL (74-106); Potassium 4.8 mmol/L (3.5-5.1); Sodium 138 mmol/L (136-145); Troponin I High Sensitivity 13.1 pg/mL (4.0-51.3)
[2023-10-06] MEDS: DIGOXIN 500 MCG/2 ML AMPUL 125 MCG IV (12:05)
--- NOTE | 2023-10-06 12:36 | ED.ARRPALP1 ---
HPI - Arrhythmia/Palpitations General Chief Complaint: Arrhythmia/Palpitations Stated Complaint: CHEST PAIN Time Seen by Provider: 10/06/23 10:53 Source: patient Mode of arrival: ambulance Limitations: no limitations History of Present Illness HPI narrative: Patient presents to ED complaining of heart palpitations. She was sent over from the [place] for A-fib but more rapid than her normal rate. She is normally more rate controlled and her heart rate was up in the 120s and 130s so she was sent into ED for further evaluation. The patient has no specific complaints. She states that she does not want to be here and wants to go home. Patient has been in the ER few times recently and has had some hospital stays. Most of this was heart and rhythm related. She was apparently taken off her digoxin recently due to her blood pressure being too low. She has some mild facial flushing. COVID is going around at the [facility] as well. No fever here and patient denies cough. Related Data Home Medications ?Medication ?Instructions ?Recorded ?Confirmed acetaminophen 500 mg capsule 1,000 mg PO DAILY 09/06/23 10/06/23 atorvastatin 20 mg tablet (Lipitor) 20 mg PO DAILY 09/06/23 10/06/23 calcium carbonate 500 mg-vitamin 1 tab PO BID 09/06/23 10/06/23 D3 10 mcg (400 unit) tablet (Oyster Shell Calcium-Vitamin D3) dextromethorphan 20 mg-quinidine 1 cap PO Q12H 09/06/23 10/06/23 10 mg capsule (Nuedexta) duloxetine 30 mg capsule,delayed 30 mg PO DAILY 09/06/23 10/06/23 release (Cymbalta) ferrous sulfate 325 mg (65 mg 325 mg PO DAILY 09/06/23 10/06/23 iron) tablet (FeroSul) lamotrigine 100 mg tablet 100 mg PO DAILY 09/06/23 10/06/23 (Lamictal) magnesium 200 mg tablet 400 mg PO DAILY 09/06/23 10/06/23 melatonin 10 mg capsule 10 mg PO DAILY 09/06/23 10/06/23 memantine 21 mg capsule 21 mg PO DAILY 09/06/23 10/06/23 sprinkle,extended release 24hr metformin 1,000 mg tablet 1,000 mg PO DAILY 06/17/24 07/17/24 nitroglycerin 0.4 mg sublingual 0.4 mg sublingual Q5M 09/06/23 10/06/23 tablet (Nitrostat) polyethylene glycol 3350 17 17 g PO QDAY constipation 09/06/23 10/06/23 gram/dose oral powder (ClearLax) psyllium husk 0.4 gram capsule 0.4 g PO BID 09/06/23 10/06/23 (Daily Fiber) rivaroxaban 20 mg tablet (Xarelto) 20 mg PO DAILY 09/06/23 10/06/23 spironolactone 50 mg tablet 50 mg PO DAILY 09/06/23 10/06/23 trazodone 150 mg tablet 75 mg PO DAILY 09/06/23 10/06/23 artificial 1 drp ophthalmic (eye) Q12H 09/24/23 10/06/23 tears(hcwtmgo-baokbukj-pitwdtj) 0.1 %-0.3 %-0.2 % eye drops (GenTeal Tears Moderate) clobetasol 0.05 % topical cream 1 applic topical BID PRN vaginal 09/24/23 10/06/23 irritation famotidine 40 mg tablet (Pepcid) 40 mg PO DAILY 09/24/23 10/06/23 lamotrigine 25 mg tablet 25 mg PO DAILY 09/24/23 10/06/23 linagliptin 5 mg tablet (Tradjenta) 5 mg PO DAILY 09/24/23 10/06/23 furosemide 20 mg tablet 20 mg PO QDAY 10/06/23 10/06/23 midodrine 5 mg tablet 5 mg PO BID PRN hypotension 10/06/23 10/06/23 Allergies Allergy/AdvReac Type Severity Reaction Status Date / Time aspirin Allergy Unknown Verified 09/06/23 11:21 fluoxetine [From Prozac] Allergy Unknown Verified 09/06/23 11:21 hydrochlorothiazide Allergy Unknown Verified 09/06/23 11:21 Penicillins Allergy Unknown Verified 09/06/23 11:21 pregabalin [From Lyrica] Allergy Unknown Verified 09/06/23 11:21 sertraline [From Zoloft] Allergy Unknown Verified 09/06/23 11:21 Sulfa (Sulfonamide Allergy Unknown Verified 09/06/23 11:21 Antibiotics) tetanus and diphtheria Allergy Unknown Verified 09/06/23 11:21 toxoids Review of Systems ROS Status of ROS 10 or more systems reviewed and unremarkable except as noted in history and below Exam Narrative Exam Narrative: Time Seen: [] Vital Signs: [Per nurse's notes.] General: [Alert] Skin: [Warm, dry, no rash.]Mild facial flushing. Skin lesion on the right cheek Head: [Normocephalic, atraumatic.] Neck: [Supple, trachea midline.] Eye: [Pupils are equal, round and reactive to light, extraocular movements are intact, normal conjunctiva.] Ears, nose, mouth and throat: oral mucosa moist. Cardiovascular: Irregularly irregular rapid rate, no murmur.] Respiratory: [Lungs are clear to auscultation, respirations are non-labored, breath sounds are equal.] Chest wall: [No tenderness, no deformity.] Gastrointestinal: [Soft, nontender, non distended, normal bowel sounds.] MSK: no calf pain or edema Lymphatics: [No lymphadenopathy.] Psychiatric: [Cooperative, appropriate mood & affect.] Neurological: [Alert and oriented to person, place, time, and situation, no focal neurological deficit observed.] Constitutional Vital Signs, click to edit/add: Last Vital Signs Temp 97.6 F 10/06/23 12:48 Pulse 119 H 10/06/23 14:56 Resp 17 10/06/23 14:56 BP 114/84 10/06/23 14:59 Pulse Ox 96 10/06/23 14:38 O2 Del Method Room Air 10/06/23 13:56 O2 Flow Rate 2 10/06/23 12:48 Course Vital Signs Vital signs: Vital Signs Temperature 97.8 F 10/06/23 10:54 Pulse Rate 137 H 10/06/23 10:54 Respiratory Rate 20 10/06/23 10:54 Blood Pressure 106/75 10/06/23 10:54 Pulse Oximetry 94 L 10/06/23 10:54 Oxygen Delivery Method Nasal Cannula 10/06/23 10:54 Oxygen Delivery Flow Rate 2 10/06/23 10:54 Temperature 97.6 F 10/06/23 12:48 Pulse Rate 119 H 10/06/23 14:56 Respiratory Rate 17 10/06/23 14:56 Blood Pressure 114/84 10/06/23 14:59 Pulse Oximetry 96 10/06/23 14:38 Oxygen Delivery Method Room Air 10/06/23 13:56 Oxygen Delivery Flow Rate 2 10/06/23 12:48 MDM - Arrhythmia/Palpitations MDM Narrative Medical decision making narrative: Patient's labs are nonacute. Her A-fib was controlled with digoxin and Cardizem. Patient most likely needs restarted on some of her rate control medications which they can do at her facility. Patient would like to be transferred back. Her hemoglobin is slightly low although she does run low which is lower than her normal. She denies any GI bleeding. She was transferred back to her facility in no acute distress. Vital signs stable. She was still slightly elevated on her heart rate but much better around 106 prior to leaving. Differential Diagnosis Differential diagnosis: Likely palpitations and artial fibrillation Medical Records Attestation: I reviewed the patient's medical records. Lab Data Attestation: I reviewed the patient's lab results. Labs: Lab Results 10/06/23 10/06/23 Range/Units 10:54 12:40 WBC 11.2 H (4.0-11.0) 10^3/uL RBC 2.93 L (4.20-5.40) 10^6/uL Hgb 8.4 L (12.0-16.0) g/dL Hct 28.6 L (36.0-48.0) % MCV 97.6 (81.0-99.0) fL MCH 28.7 (26.7-34.0) pg MCHC 29.4 L (29.9-35.2) g/dL RDW 17.0 H (11.0-15.0) % Plt Count 360 (150-450) 10^3/uL MPV 8.7 L (9.5-13.5) fL Neut % (Auto) 78.4 H (43.0-75.0) % Lymph % (Auto) 12.0 L (20.5-60.0) % [place] % (Auto) 7.0 (1.7-12.0) % Eos % (Auto) 1.8 (0.9-7.0) % Baso % (Auto) 0.2 (0.2-2.0) % Neut # (Auto) 8.8 H (1.4-6.5) 10^3/uL Lymph # (Auto) 1.4 (1.2-3.8) 10^3/uL [place] # (Auto) 0.8 (0.3-0.8) 10^3/uL Eos # (Auto) 0.2 (0.0-0.7) 10^3/uL Baso # (Auto) 0.0 (0.0-0.1) 10^3/uL Abs Immat Gran (auto) 0.07 H (0.00-0.03) 10^3/uL Imm/Tot Granulo (auto) 0.6 H (0.0-0.5) % PT 15.8 H (9.0-11.6) sec INR 1.56 Sodium 138 (136-145) mmol/L Potassium 4.8 (3.5-5.1) mmol/L Chloride 98 (98-107) mmol/L Carbon Dioxide 36.1 H (21.0-32.0) mmol/L Anion Gap 8.7 BUN 16.0 (7.0-18.0) mg/dL Creatinine 0.90 (0.55-1.02) mg/dL Est GFR ( Amer) >60 (>=60) Est GFR (Non-Af Amer) >60 (>=60) BUN/Creatinine Ratio 17.8 Glucose 155 H (74-106) mg/dL Calcium 9.4 (8.5-10.1) mg/dL Total Bilirubin 0.4 (0.2-1.0) mg/dL AST 10 L (15-37) U/L ALT 12 L (14-59) U/L Alkaline Phosphatase 59 (46-116) U/L Troponin I High Sens 13.1 (4.0-51.3) pg/mL Total Protein 7.0 (6.4-8.2) g/dL Albumin 2.2 L (3.4-5.0) g/dL Globulin 4.8 g/dL Albumin/Globulin Ratio 0.5 SARS-CoV-2 Ag (CV2AG) Negative (NEGATIVE) Imaging Data Chest x-ray: Radiologist's impression: ITS Impressions Chest X-Ray 10/06/23 11:27 IMPRESSION: 1. Expiratory chest with slight improvement in upadp-gx-gyxyudnf left effusion since study 09/24/2023. Left mid to lower lung airspace disease is stable, from atelectasis or pneumonia. Continued clinical and radiographic follow-up to resolution. 2. Bronchial calcifications and probable bronchitis that may be acute or chronic. Right lung without consolidation or effusion. 3. Atherosclerosis and cardiomegaly, without pulmonary edema. Electronically authenticated by: MARLINE LYN Date: 10/06/2023 12:06 ECG Data Attestation: I personally reviewed and interpreted this ECG as follows: Interpretation: EKG INTERPRETATION Time: []11:00 Rate: Fluctuating Around 120 Rhythm: _ []Atrial fibrillation ST segments: _ []No acute ST elevation or depression T waves: _ [] Ectopy: _ [] P wave/IL interval: _ [] QRS interval: _ [] QT interval: _ [] Comparison: _ [] Comparison EKG date: [] Performed by: [self] Discharge Plan Discharge Stand Alone Forms: Portal Instructions Chief Complaint: Arrhythmia/Palpitations Clinical Impression: Atrial fibrillation Patient Disposition: Home, Self-Care Time of Disposition Decision: 14:10 Mode of Transportation: EMS Prescriptions / Home Meds: No Action clobetasol 0.05 % cream 1 applic TOPICAL BID PRN (Reason: vaginal irritation) lamotrigine 25 mg tablet 25 mg PO DAILY artificial tear(knycw-dxj-udf) [GenTeal Tears Moderate] 0.1-0.3-0.2 % drops 1 drp OPHTHALMIC (EYE) Q12H famotidine [Pepcid] 40 mg tablet 40 mg PO DAILY Tradjenta 5 mg tablet 5 mg PO DAILY acetaminophen 500 mg capsule 1,000 mg PO DAILY ferrous sulfate [FeroSul] 325 mg (65 mg iron) tablet 325 mg PO DAILY lamotrigine [Lamictal] 100 mg tablet 100 mg PO DAILY atorvastatin [Lipitor] 20 mg tablet 20 mg PO DAILY magnesium 200 mg tablet 400 mg PO DAILY metformin 1,000 mg tablet 1,000 mg PO DAILY calcium carbonate-vitamin D3 [Oyster Shell Calcium-Vit D3] 500 mg-10 mcg (400 unit) tablet 1 tab PO BID Xarelto 20 mg tablet 20 mg PO DAILY Rx Instructions: must administer with evening meal psyllium husk [Daily Fiber] 0.4 gram capsule 0.4 g PO BID memantine 21 mg capsule,sprinkle,ER 24hr 21 mg PO DAILY spironolactone 50 mg tablet 50 mg PO DAILY polyethylene glycol 3350 [ClearLax] 17 gram/dose powder 17 g PO QDAY nitroglycerin [Nitrostat] 0.4 mg tablet, sublingual 0.4 mg sublingual Q5M Rx Instructions: do not exceed 3 doses per episode Nuedexta 20-10 mg capsule 1 cap PO Q12H duloxetine [Cymbalta] 30 mg capsule,delayed release(DR/EC) 30 mg PO DAILY melatonin 10 mg capsule 10 mg PO DAILY trazodone 150 mg tablet 75 mg PO DAILY furosemide 20 mg tablet 20 mg PO QDAY Rx Instructions: Hold for SBP <100 midodrine 5 mg tablet 5 mg PO BID PRN (Reason: hypotension) Rx Instructions: For SBP <100 Print Language: Irish Instructions: A-fib (Atrial Fibrillation) (ED) Referrals: MARY KAY MAJOR DO [Primary Care Provider] - 1 week
[2023-10-06 13:25] LABS: Internal Control Within Normal Limits; SARS-CoV-2 Ag NEGATIVE (NEGATIVE)
[2023-10-06] MEDS: DILTIAZEM HCL 25 MG/5 ML VIAL 10 MG IV (13:32)
== END 2023-10-06 15:14 | disposition home or self-care (01) ==
PROVIDERS: Emergency Provider Emergency Medicine; PCP Internal Medicine
DX: I48.91 Unspecified atrial fibrillation (principal); Z20.822 Contact with and (suspected) exposure to COVID-19
CPT/HCPCS: 36415; 71045; 80053; 84484; 85025; 85610; 87811; 93005; 96374; 96375; 99285; J1160

== ENCOUNTER 2023-12-07 21:42 | Emergency (ER) | payer MEDICARE, MEDICAID, SELFPAY ==
[2023-12-07] VITALS (16 sets, daily range): BP systolic 97–126; BP diastolic 67–90; PULSE 91–122; TEMP 36.8; O2SAT 88–99
--- NOTE | 2023-12-07 09:50 | ECG_ITS ---
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
--- OUTSIDE RECORDS SUMMARY | 2023-12-07 21:58 | XMS_ITS | CCD ---
Author Organization [facility] Inform ion Partnership [facility] Care Team Providers Care Senior Oracle Database Administrator Name Role Phone FLORIN, DR PRESTON Attending Unavailable FLORIN, DR PRESTON Admitting Unavailable FLORIN, DR PRESTON Consulting Unavailable PEDRITO, DR MUÑIZ Primary Care Unavailable YUE, DR ZENON Loya Consulting Unavailable TATE, DR BRITTANY Wallace Consulting Unavailable CIARA SORIA Consulting Unavailable MILLICENT ESPINAL Consulting Unavailable IDANIA CUEVAS Consulting Unavailable KOBI TOMAS Consulting Unavailable KARSTEN MUJICA Consulting Unavailable ANUSHKA FLANAGAN Consulting Unavailable MARY KAY MAJOR Primary Care Unavailable SHEELA ORANTES Admitting Unavailable STACY COOK Attending Unavailable BRISEYDA AGOSTO Consulting Unavailable SHEELA ORANTES Consulting Unavailable JENSEN MARTINES Consulting Unavailable SELIN SZYMANSKI Consulting UnavailKAYLAH Gil Attending Unavailable Allergies Allergy Classification Reported Allergen(s) Allergy Type Date of Onset Reaction(s) Facility (1 source) Allopurinol Drug Allergy 4 [facility] Repository (2 sources) Aspirin; Translations: [ASPIRIN] Drug Allergy 6 [facility] Repository (1 source) buPROPion Drug Allergy 7 [facility] Repository (1 source) DULoxetine Drug Allergy 6 [facility] Repository (1 source) FLUoxetine Drug Allergy 7 [facility] Repository (2 sources) hydroCHLOROthiazi de; Translations: [HYDROCHLOROTHIAZ GERARD] Drug Allergy 4 [facility] Repository (1 source) lamoTRIgine Drug Allergy 7 [facility] Repository (2 sources) Penicillins; Translations: [PENICILLINS] Drug allergy (disorder) 6 [facility] Repository (1 source) pregabalin Drug Allergy 4 [facility] Repository (1 source) Sertraline Drug Allergy 6 [facility] Repository (1 source) Sulfonamides (Antibiotic) Drug allergy (disorder) 4 [facility] Repository (1 source) FLUoxetine; Translations: [FLUOXETINE] Drug Allergy 4 [facility] Repository (1 source) pregabalin; Translations: [PREGABALIN] Drug Allergy 4 [facility] Repository (1 source) Sertraline; Translations: [SERTRALINE] Drug Allergy 4 [facility] Repository (1 source) Sulfonamides (Antibiotic); Translations: [SULFA (SULFONAMIDE ANTIBIOTICS)] Propensity to adverse reactions to drug (disorder) 6 [facility] Repository (1 source) TETANUS VACCINES AND TOXOID; Translations: [TETANUS VACCINES AND TOXOID] Propensity to adverse reactions to drug (disorder) 4 [facility] Repository Problems Active Problems Problem Classification Problem Date Documented Date Episodic/Chronic Cardiac dysrhythmias (1 source) Unspecified atrial fibrillation; Translations: [UNSPECIFIED ATRIAL FIBRILLATION] Onset: 02-24-2022 Chronic Cardiac dysrhythmias (1 source) Bradycardia, unspecified; Translations: [Bradycardia, unspecified] Onset: 09-08-2023 Episodic Congestive heart failure; nonhypertensive (2 sources) Heart failure, unspecified; Translations: [HEART FAILURE UNSPECIFIED] Onset: 02-24-2022 Chronic Coronary atherosclerosis and other heart disease (1 source) Atherosclerotic heart disease of [place] coronary artery without angina pectoris; Translations: [ASHD [place] W/O ANGINA PECTORIS] Onset: 02-24-2022 Chronic [...] 02-24-2022 Episodic Other aftercare (1 source) Other residential (current) drug therapy; Translations: [OTH RULES EXAMINER CURRENT DRUG THERAPY] Onset: 02-24-2022 Episodic Other [...] [UTI SITE NOT SPECIFIED] Onset: 02-24-2022 Episodic Past or Other Problems Problem Classification Problem Date Documented Da te Episodic/Chronic Unclassified (1 source) New Patient Onset: 11-05-2023 Results Test Name Value Interpretation Reference Range Facility Office Visiton 11-05-2023 Follow-up visit [id number] Nuris Sweeney 1945 F Date Provider Department Center 11/05/2023 [id number]-KAYLAH SIMMONS CARD [facility] No family history on file Level of Service:49707 [place] OFFICE/OUTPATIENT NEW MODERATE MDM 45 MINUTES Reason for Visit and Comments: New Patient [Other] - Afib Concerns: States Hypotension and tachycardic. States Collapsed Left lung and stent is in. States SOB. Was in ICU 60 days ago for digoxin overdose. Started digoxin again. Wants to know if candidate for pacemaker. No further cardiac concerns/symptoms. Normal [facility] Basic Metab w/rfx MGon 09-08 Anion gap [Moles/Vol] 8 mmol/L Low 9-16 [facility] Comment on above: Performed By: #### F YENY RAMOS, BNP #### [facility] [employer] [address] [place] [address] Supervisor: Giovany Patel MD Calcium [Mass/Vol] 10.3 mg/dL Normal 8.6-10.4 [facility] Comment on above: Performed By: #### F YENY RAMOS, BNP #### [employer] [address] [place] [address] Supervisor: Giovany Patel MD Chloride [Moles/Vol] 94 mmol/L Low 98-107 [facility] Comment on above: Performed By: #### F YENY RAMOS, BNP #### [employer] [address] [place] [address] Supervisor: Giovany Patel MD CO2 [Moles/Vol] 36 mmol/L High 20-31 [facility] Comment on above: Performed By: #### F YENY RAMOS, BNP #### [employer] [address] [place] [address] Supervisor: Giovany Patel MD Creatinine [Mass/Vol] 0.6 mg/dL Normal 0.50-0.90 [facility] Comment on above: Performed By: #### F YENY RAMOS, BNP #### [facility] [address] [place] [address] Supervisor: Giovany Patel MD GFR/1.73 sq M.predicted among non-blacks MDRD (S/P/Bld) [Vol rate/Area] mL/min/{1.73_m2} Normal >60 [facility] Comment on above: Result Comment: These [...] F YENY RAMOS, BNP #### [facility] [address] [place] [address] Supervisor: Giovany Patel MD Glucose [Mass/Vol] 178 mg/dL High 74-99 [facility] Comment on above: Performed By: #### F YENY RAMOS, BNP #### [facility] [address] [place] [address] Supervisor: Giovany Patel MD Potassium [Moles/Vol] 4.2 mmol/L Normal 3.7-5.3 [facility] Comment on above: Performed By: #### F YENY RAMOS, BNP #### [facility] [address] [place] [address] Supervisor: Giovany Patel MD Sodium [Moles/Vol] 138 mmol/L Normal 136-145 [facility] Comment on above: Performed By: #### F YENY RAMOS, BNP #### [facility] [address] [place] [address] Supervisor: Giovany Patel MD Urea nitrogen [Mass/Vol] 13 mg/dL Normal 8-23 [facility] Comment on above: Performed By: #### F RICHARD, FEBC, BNP #### [address] Supervisor: Giovany Patel MD CBC with Diffon 09-09-2023 Abs. Basophil 0.03 k/uL Normal 0.00-0.20 [facility] Comment on above: Performed By: #### U MARTÍN UAX #### [facility] [employer] [address] [place] [address] Supervisor: Giovany Patel MD Abs.Imm.Granulocyte 0.08 k/uL Normal 0.00-0.30 [facility] Comment on above: Performed By: #### U MARTÍN UAX #### [facility] [employer] [address] [place] [address] Supervisor: Giovany Patel MD Abs.Neutrophil (Seg) 7.10 k/uL Normal 1.50-8.10 [facility] Comment on above: Performed By: #### U MARTÍN UAX #### [facility] [employer] [address] [place] [address] Supervisor: Giovany Patel MD Basophils/100 WBC (Bld) 0 % Normal 0-2 [facility] Comment on above: Performed By: #### Michelle RESENDIZ UAX #### [facility] [employer] [address] [place] [address] Supervisor: Giovany Patel MD Eosinophils (Bld) [#/Vol] 0.18 10*3/uL Normal 0.00-0.44 [facility] Comment on above: Performed By: #### U MARTÍN UAX #### [facility] [employer] [address] [place] [address] Supervisor: Giovany Patel MD Eosinophils/100 WBC (Bld) 2 % Normal 1-4 [facility] Comment on above: Performed By: #### U MICAO, UAX #### [facility] [address] [place] [address] Supervisor: Giovany Ptael MD Erythrocyte distribution width (RBC) [Ratio] 17.3 % High 11.8-14.4 [facility] Comment on above: Performed By: #### U MICAO, UAX #### [facility] [address] [place] [address] [address] Supervisor: Giovany Patel MD Hematocrit (Bld) [Volume fraction] 30.2 % Low 36.3-47.1 [facility] Comment on above: Performed By: #### U MARTÍN, UAX #### [facility] [employer] [address] [place] [address] [address] Supervisor: Giovany Patel MD Hemoglobin (Bld) [Mass/Vol] 8.8 g/dL Low 11.9-15.1 [facility] Comment on above: Performed By: #### U MARTÍN, UAX #### [facility] [employer] [address] [place] [address] Supervisor: Giovany Patel MD Immature granulocytes/100 WBC (Bld) 1 % High 0 [facility] Comment on above: Performed By: #### U MARTÍN, UAX #### [facility] [employer] [address] [place] [address] Supervisor: Giovany Patel MD Lymphocytes (Bld) [#/Vol] 1.55 10*3/uL Normal 1.10-3.70 [facility] Comment on above: Performed By: #### U MARTÍN, UAX #### [facility] [employer] [address] [place] [address] [address] Supervisor: Giovany Patel MD Lymphocytes/100 WBC (Bld) 16 % Low 24-43 [facility] Comment on above: Performed By: #### U MARTÍN, UAX #### [facility] [address] [place] [address] Supervisor: Giovany Patel MD MCH (RBC) [Entitic mass] 29.0 pg Normal 25.2-33.5 [facility] Comment on above: Performed By: #### U MICAO, UAX #### [address] Supervisor: Giovany Patel MD MCHC (RBC) [Mass/Vol] 29.1 g/dL Normal 28.4-34.8 [facility] Comment on above: Performed By: #### U MICAO, UAX #### [address] Supervisor: Giovany Patel MD MCV (RBC) [Entitic vol] 99.7 fL Normal 82.6-102.9 [facility] Comment on above: Performed By: #### U CORINNEO, UAX #### [address] Supervisor: Giovany Paetl MD Monocytes (Bld) [#/Vol] 0.95 10*3/uL Normal 0.10-1.20 [facility] Comment on above: Performed By: #### U MICAO, UAX #### [address] Supervisor: Giovany Patel MD Monocytes/100 WBC (Bld) 10 % Normal 3-12 [facility] Comment on above: Performed By: #### U MICAO, UAX #### [address] Supervisor: Giovany Patel MD Neutrophil (Seg) 71 % High 36-65 [facility] Comment on above: Performed By: #### U MICAO, UAX #### [address] Supervisor: Giovany Patel MD NRBC Automated 0.0 per 100 WBC Normal 0.0 [facility] Comment on above: Performed By: #### Michelle RESENDIZ UAX #### [address] Supervisor: Giovany Patel MD Platelet mean volume (Bld) [Entitic vol] 8.7 fL Normal 8.1-13.5 [facility] Comment on above: Performed By: #### U MARTÍN UAX #### [address] Supervisor: Giovany Patel MD Platelets (Bld) [#/Vol] 348 10*3/uL Normal 138-453 [facility] Comment on above: Performed By: #### Michelle RESENDIZ UAX #### [address] Supervisor: Giovany Patel MD RBC (Bld) [#/Vol] 3.03 10*6/uL Low 3.95-5.11 [facility] Comment on above: Performed By: #### Michelle RESENDIZ UAX #### [address] Supervisor: Giovany Patel MD RBC morphology finding Nom (Bld) ANISOCYTOSIS PRESENT Normal [facility] Comment on above: Performed By: #### U MARTÍN UAX #### [address] Supervisor: Giovany Patel MD WBC (Bld) [#/Vol] 9.9 10*3/uL Normal 3.5-11.3 [facility] Comment on above: Performed By: #### U MARTÍN UAX #### [address] Supervisor: Giovany Patel MD Glucose,Whole Bloodon 2023 Glucose [Mass/Vol] 189 mg/dL High 65-105 [facility] Glucose [Mass/Vol] 291 mg/dL High 65-105 [facility] Glucose [Mass/Vol] 179 mg/dL High 65-105 [facility] Basic Metab w/rfx MGon 09-07 Anion gap [Moles/Vol] 11 mmol/L Normal 9-16 [facility] Comment on above: Performed By: #### U MARTÍN, UAX #### [facility] [employer] [address] [place] [address] [address] Supervisor: Giovany Patel MD Calcium [Mass/Vol] 9.5 mg/dL Normal 8.6-10.4 [facility] Comment on above: Performed By: #### U MARTÍN, UAX #### [address] Supervisor: Giovany Patel MD Chloride [Moles/Vol] 95 mmol/L Low 98-107 [facility] Comment on above: Performed By: #### U MARTÍN UAX #### [facility] [employer] [address] [place] [address] [address] Supervisor: Giovany Patel MD CO2 [Moles/Vol] 32 mmol/L High 20-31 [facility] Comment on above: Performed By: #### U MARTÍN, UAX #### [facility] [employer] [address] [place] [address] [address] Supervisor: Giovany Patel MD Creatinine [Mass/Vol] 0.5 mg/dL Normal 0.50-0.90 [facility] Comment on above: Performed By: #### U MARTÍN, UAX #### [facility] [employer] [address] [place] [address] [address] Supervisor: Giovany Patel MD GFR/1.73 sq M.predicted among non-blacks MDRD (S/P/Bld) [Vol rate/Area] mL/min/{1.73_m2} Normal >60 [facility] Comment on above: Result Comment: These [...] By: #### Michelle RESENDIZ UAX #### [facility] [employer] [address] [place] [address] [address] Supervisor: Giovany Patel MD Glucose [Mass/Vol] 173 mg/dL High 74-99 [facility] Comment on above: Performed By: #### Michelle RESENDIZ UAX #### [facility] [employer] [address] [place] [address] Supervisor: Giovany Patel MD Potassium [Moles/Vol] 3.8 mmol/L Normal 3.7-5.3 [facility] Comment on above: Performed By: #### Michelle RESENDIZ UAX #### [address] Supervisor: Giovany Patel MD Sodium [Moles/Vol] 138 mmol/L Normal 136-145 [facility] Comment on above: Performed By: #### Michelle RESENDIZ UAX #### [facility] [employer] [address] [place] [address] Supervisor: Giovany Patel MD Urea nitrogen [Mass/Vol] 13 mg/dL Normal 8-23 [facility] Comment on above: Performed By: #### U MARTÍN UAX #### [facility] [employer] [address] [place] [address] Supervisor: Giovany Patel MD CBC with Diffon 09-08-2023 Abs. Basophil 0.03 k/uL Normal 0.00-0.20 [facility] Comment on above: Performed By: #### Michelle RESENDIZ UAX #### [address] Supervisor: Giovany Patel MD Abs.Imm.Granulocyte 0.13 k/uL Normal 0.00-0.30 [facility] Comment on above: Performed By: #### U MARTÍN UAX #### [place] [address] Supervisor: Giovany Patel MD Abs.Neutrophil (Seg) 8.08 k/uL Normal 1.50-8.10 [facility] Comment on above: Performed By: #### Michelle RESENDIZ UAX #### [address] Supervisor: Giovany Patel MD Basophils/100 WBC (Bld) 0 % Normal 0-2 [facility] Comment on above: Performed By: #### Michelle RESENDIZ UAX #### [place] [address] Supervisor: Giovany Patel MD Eosinophils (Bld) [#/Vol] 0.18 10*3/uL Normal 0.00-0.44 [facility] Comment on above: Performed By: #### Michelle RESENDIZ UAX #### [address] Supervisor: Giovany Patel MD Eosinophils/100 WBC (Bld) 2 % Normal 1-4 [facility] Comment on above: Performed By: #### Michelle RESENDIZ UAX #### [address] Supervisor: Giovany Patel MD Erythrocyte distribution width (RBC) [Ratio] 17.8 % High 11.8-14.4 [facility] Comment on above: Performed By: #### Michelle RESENDIZ UAX #### [address] [place] [address] Supervisor: Giovany Patel MD Hematocrit (Bld) [Volume fraction] 27.9 % Low 36.3-47.1 [facility] Comment on above: Performed By: #### U MICAO, UAX #### [address] [address] Supervisor: Giovany Patel MD Hemoglobin (Bld) [Mass/Vol] 8.3 g/dL Low 11.9-15.1 [facility] Comment on above: Performed By: #### U MICAO, UAX #### [address] Supervisor: Giovany Patel MD Immature granulocytes/100 WBC (Bld) 1 % High 0 [facility] Comment on above: Performed By: #### U CORINNEO, UAX #### [facility] [employer] [address] [place] [address] Supervisor: Giovany Patel MD Lymphocytes (Bld) [#/Vol] 1.55 10*3/uL Normal 1.10-3.70 [facility] Comment on above: Performed By: #### U CORINNEO, UAX #### [address] Supervisor: Giovany Patel MD Lymphocytes/100 WBC (Bld) 14 % Low 24-43 [facility] Comment on above: Performed By: #### U MICAO, UAX #### [address] Supervisor: Giovany Patel MD MCH (RBC) [Entitic mass] 29.5 pg Normal 25.2-33.5 [facility] Comment on above: Performed By: #### U MICAO, UAX #### [address] [address] Supervisor: Giovany Patel MD MCHC (RBC) [Mass/Vol] 29.7 g/dL Normal 28.4-34.8 [facility] Comment on above: Performed By: #### U MICAO, UAX #### [address] Supervisor: Giovany Patel MD MCV (RBC) [Entitic vol] 99.3 fL Normal 82.6-102.9 [facility] Comment on above: Performed By: #### U MICAO, UAX #### [address] Supervisor: Giovany Patel MD Monocytes (Bld) [#/Vol] 0.88 10*3/uL Normal 0.10-1.20 [facility] Comment on above: Performed By: #### U MICAO, UAX #### [address] Supervisor: Giovany Patel MD Monocytes/100 WBC (Bld) 8 % Normal 3-12 [facility] Comment on above: Performed By: #### U MICAO, UAX #### [address] Supervisor: Giovany Patel MD Neutrophil (Seg) 75 % High 36-65 [facility] Comment on above: Performed By: #### U MICAO, UAX #### [address] Supervisor: Giovany Patel MD NRBC Automated 0.0 per 100 WBC Normal 0.0 [facility] Comment on above: Performed By: #### U MICAO, UAX #### [address] Supervisor: Giovany Patel MD Platelet mean volume (Bld) [Entitic vol] 8.7 fL Normal 8.1-13.5 [facility] Comment on above: Performed By: #### U MARTÍN, UAX #### [address] [place] [address] Supervisor: Giovany Patel MD Platelets (Bld) [#/Vol] 334 10*3/uL Normal 138-453 [facility] Comment on above: Performed By: #### U MARTÍN, UAX #### [facility] [employer] [address] [place] [address] Supervisor: Giovany Patel MD RBC (Bld) [#/Vol] 2.81 10*6/uL Low 3.95-5.11 [facility] Comment on above: Performed By: #### U MARTÍN, UAX #### [address] [address] Supervisor: Giovany Patel MD RBC morphology finding Nom (Bld) ANISOCYTOSIS PRESENT Normal [facility] Comment on above: Performed By: #### U MARTÍN UAX #### [facility] [employer] [address] [place] [address] Supervisor: Giovany Patel MD WBC (Bld) [#/Vol] 10.9 10*3/uL Normal 3.5-11.3 [facility] Comment on above: Performed By: #### U MARTÍN, UAX #### [address] Supervisor: Giovany Patel MD Glucose,Whole Bloodon 2023 Glucose [Mass/Vol] 284 mg/dL High 65-105 [facility] Glucose [Mass/Vol] 215 mg/dL High 65-105 [facility] Glucose [Mass/Vol] 202 mg/dL High 65-105 [facility] Glucose [Mass/Vol] 176 mg/dL High 65-105 [facility] XR TOE LEFT (MIN 2 VIEWS)on [...] Zenon Light MD 09/08/23 Final result Normal [facility] Basic Metab w/rfx MGon 09-06 Anion gap [Moles/Vol] 10 mmol/L Normal 9-16 [facility] Comment on above: Performed By: #### F YENY RAMOS, BNP #### [employer] [address] [place] [address] Supervisor: Giovany Patel MD Calcium [Mass/Vol] 10.2 mg/dL Normal 8.6-10.4 [facility] Comment on above: Performed By: #### F YENY RAMOS, BNP #### [employer] [address] [place] [phone] Supervisor: Giovany Patel MD Chloride [Moles/Vol] 98 mmol/L Normal 98-107 [facility] Comment on above: Performed By: #### F YENY RAMOS, BNP #### [employer] [address] [place] [phone] Supervisor: Giovany Patel MD CO2 [Moles/Vol] 34 mmol/L High 20-31 [facility] Comment on above: Performed By: #### F YENY RAMOS, BNP #### [facility] [address] [place] [address] Supervisor: Giovany Patel MD Creatinine [Mass/Vol] 0.6 mg/dL Normal 0.50-0.90 [facility] Comment on above: Performed By: #### F YENY RAMOS, BNP #### [facility] [address] [place] [address] Supervisor: Giovany Patel MD GFR/1.73 sq M.predicted among non-blacks MDRD (S/P/Bld) [Vol rate/Area] mL/min/{1.73_m2} Normal >60 [facility] Comment on above: Result Comment: These [...] F YENY RAMOS, BNP #### [facility] [address] [place] [address] [address] Supervisor: Giovany Patel MD Glucose [Mass/Vol] 146 mg/dL High 74-99 [facility] Comment on above: Performed By: #### F YENY RAMOS, BNP #### [facility] [address] [place] [address] [address] Supervisor: Giovany Patel MD Potassium [Moles/Vol] 4.3 mmol/L Normal 3.7-5.3 [facility] Comment on above: Performed By: #### F YENY RAMOS, BNP #### [facility] [address] [place] [address] [address] Supervisor: Giovany Patel MD Sodium [Moles/Vol] 142 mmol/L Normal 136-145 [facility] Comment on above: Performed By: #### F RICHARDVIPUL LozaBC, BNP #### [place] [address] Supervisor: Giovany Patel MD Urea nitrogen [Mass/Vol] 16 mg/dL Normal 8-23 [facility] Comment on above: Performed By: #### F RICHARD, FEBC, BNP #### [place] [address] Supervisor: Giovany Patel MD CBC with Diffon 09-07-2023 Abs. Basophil <0.03 Normal 0.00-0.20 [facility] Comment on above: Performed By: #### F RICHARDYENY Loza, BNP #### [place] [address] Supervisor: Giovany Patel MD Abs.Imm.Granulocyte 0.12 k/uL Normal 0.00-0.30 [facility] Comment on above: Performed By: #### F YENY RAMOS, BNP #### [place] [address] Supervisor: Giovany Patel MD Abs.Neutrophil (Seg) 8.44 k/uL High 1.50-8.10 [facility] Comment on above: Performed By: #### F YENY RAMOS, BNP #### [place] [address] Supervisor: Giovany Patel MD Basophils/100 WBC (Bld) 0 % Normal 0-2 [facility] Comment on above: Performed By: #### F RICHARD, FETWILA, BNP #### [place] [address] Supervisor: Giovany Patel MD Eosinophils (Bld) [#/Vol] 0.20 10*3/uL Normal 0.00-0.44 [facility] Comment on above: Performed By: #### F YENY RAMOS, BNP #### [facility] [employer] [address] [place] [address] [address] Supervisor: Giovany Patel MD Eosinophils/100 WBC (Bld) 2 % Normal 1-4 [facility] Comment on above: Performed By: #### F YENY RAMOS, BNP #### [facility] [employer] [address] [place] [address] [address] Supervisor: Giovany Patel MD Erythrocyte distribution width (RBC) [Ratio] 17.7 % High 11.8-14.4 [facility] Comment on above: Performed By: #### F YENY RAMOS, BNP #### [facility] [employer] [address] [place] [address] [address] Supervisor: Giovany Patel MD Hematocrit (Bld) [Volume fraction] 29.8 % Low 36.3-47.1 [facility] Comment on above: Performed By: #### YENY KNOX, BNP #### [facility] [employer] [address] [place] [address] [address] Supervisor: Giovany Patel MD Hemoglobin (Bld) [Mass/Vol] 8.8 g/dL Low 11.9-15.1 [facility] Comment on above: Performed By: #### F YENY RAMOS, BNP #### [facility] [employer] [address] [place] [address] [address] Supervisor: Giovany Patel MD Immature granulocytes/100 WBC (Bld) 1 % High 0 [facility] Comment on above: Performed By: #### F YENY RAMOS, BNP #### [facility] [employer] [address] [place] [address] [address] Supervisor: Giovany Patel MD Lymphocytes (Bld) [#/Vol] 1.23 10*3/uL Normal 1.10-3.70 [facility] Comment on above: Performed By: #### F YENY RAMOS, BNP #### [address] [address] Supervisor: Giovany Patel MD Lymphocytes/100 WBC (Bld) 11 % Low 24-43 [facility] Comment on above: Performed By: #### F YENY RAMOS, BNP #### [address] Supervisor: Giovany Patel MD MCH (RBC) [Entitic mass] 29.3 pg Normal 25.2-33.5 [facility] Comment on above: Performed By: #### F YENY RAMOS, BNP #### [facility] [employer] [address] [place] [address] Supervisor: Giovany Patel MD MCHC (RBC) [Mass/Vol] 29.5 g/dL Normal 28.4-34.8 [facility] Comment on above: Performed By: #### F YENY RAMOS, BNP #### [address] Supervisor: Giovany Patel MD MCV (RBC) [Entitic vol] 99.3 fL Normal 82.6-102.9 [facility] Comment on above: Performed By: #### F YENY RAMOS, BNP #### [facility] [employer] [address] [place] [address] [address] Supervisor: Giovany Patel MD Monocytes (Bld) [#/Vol] 0.74 10*3/uL Normal 0.10-1.20 [facility] Comment on above: Performed By: #### F YENY RAMOS, BNP #### [facility] [employer] [address] [place] [address] [address] Supervisor: Giovany Patel MD Monocytes/100 WBC (Bld) 7 % Normal 3-12 [facility] Comment on above: Performed By: #### F RICHARD FEBC, BNP #### [facility] [address] [place] [address] [address] Supervisor: Giovany Patel MD Neutrophil (Seg) 79 % High 36-65 [facility] Comment on above: Performed By: #### F RICHARD FEBC, BNP #### [facility] [address] [place] [address] [address] Supervisor: Giovany Patel MD NRBC Automated 0.0 per 100 WBC Normal 0.0 [facility] Comment on above: Performed By: #### F RICHARD FEBC, BNP #### [facility] [address] [place] [address] [address] Supervisor: Giovany Patel MD Platelet mean volume (Bld) [Entitic vol] 8.9 fL Normal 8.1-13.5 [facility] Comment on above: Performed By: #### F RICHARD, FEBC, BNP #### [facility] [employer] [address] [place] [address] [address] Supervisor: Giovany Patel MD Platelets (Bld) [#/Vol] 333 10*3/uL Normal 138-453 [facility] Comment on above: Performed By: #### F RICHARD, FEBC, BNP #### [facility] [address] [place] [address] [address] Supervisor: Giovany Patel MD RBC (Bld) [#/Vol] 3.00 10*6/uL Low 3.95-5.11 [facility] Comment on above: Performed By: #### F RICHARD, FEBC, BNP #### [facility] [address] [place] [address] [address] Supervisor: Giovany Patel MD RBC morphology finding Nom (Bld) ANISOCYTOSIS PRESENT Normal [facility] Comment on above: Performed By: #### F RICHARD, FEBC, BNP #### [address] [address] Supervisor: Giovany Patel MD WBC (Bld) [#/Vol] 10.8 10*3/uL Normal 3.5-11.3 [facility] Comment on above: Performed By: #### F RICHARD, FEBC, BNP #### [address] [address] Supervisor: Giovany Patel MD Glucose,Whole Bloodon 2023 Glucose [Mass/Vol] 280 mg/dL High 65-105 [facility] Glucose [Mass/Vol] 199 mg/dL High [facility]105 [facility] Glucose [Mass/Vol] 173 mg/dL High -105 [facility] Glucose [Mass/Vol] 141 mg/dL High [facility]105 [facility] UA w/Reflex Cultureon 2023 Bilirubin, SemiQt,Ur Negative Normal NEG [facility] Comment on above: Performed By: #### U MICAO, UAX #### [address] [address] Supervisor: Giovany Patel MD Blood, Urine Negative Normal NEG [facility] Comment on above: Performed By: #### U MICAO, UAX #### [address] Supervisor: Giovany Patel MD Clarity (U) Clear Normal CLEAR [facility] Comment on above: Performed By: #### U MICAO, UAX #### [address] [address] Supervisor: Giovany Patel MD Color (U) Yellow Normal YEL [facility] Comment on above: Performed By: #### U MICAO, UAX #### [address] [address] Supervisor: Giovany Patel MD Glucose Ql (U) Negative Normal NEG [facility] Comment on above: Performed By: #### U MICAO, UAX #### [facility] [employer] [address] [place] [address] [address] Supervisor: Giovany Patel MD Ketones Ql (U) Negative Normal NEG [facility] Comment on above: Performed By: #### U MICAO, UAX #### [facility] [address] [place] [address] [address] Supervisor: Giovany Patel MD Leukocyte esterase Test strip Ql (U) SMALL Abnormal NEG [facility] Comment on above: Performed By: #### U MICAO, UAX #### [facility] [employer] [address] [place] [address] [address] Supervisor: Giovany Patel MD Nitrite,Ur Negative Normal NEG [facility] Comment on above: Performed By: #### U MICAO, UAX #### [facility] [employer] [address] [place] [address] [address] Supervisor: Giovany Patel MD PH,Ur 5.0 Normal 5.0-8.0 [facility] Comment on above: Performed By: #### U MICAO, UAX #### [facility] [employer] [address] [place] [address] [address] Supervisor: Giovany Patel MD Protein Ql (U) Negative Normal NEG [facility] Comment on above: Performed By: #### U MICAO, UAX #### [facility] [employer] [address] [place] [address] Supervisor: Giovany Patel MD Spec. [place],Ur 1.016 Normal 1.005-1.030 [facility] Comment on above: Performed By: #### U MICAO, UAX #### [facility] [employer] [address] [place] [address] [address] Supervisor: Giovany Patel MD Urobilinogen,Ur Normal Normal 0.0-1.0 [facility] Comment on above: Performed By: #### U MARTÍN, UAX #### [address] [address] Supervisor: Giovany Patel MD Urinalysis,Microon 4 Bacteria None Normal NONE [facility] Comment on above: Performed By: #### U CORINNEO, UAX #### [address] [address] [address] Supervisor: Giovany Patel MD Casts 0 TO 2 HYALINE Normal 0-8 [facility] Comment on above: Result Comment: Refe rence range defined for non-centrifuged specimen. Performed By: #### U MARTÍN, UAX #### [address] [address] [address] Supervisor: Giovany Patel MD Epithelial cells LM Ql (Urine sed) None Normal 0-5 [facility] Comment on above: Performed By: #### U MARTÍN, UAX #### [address] [address] Supervisor: Giovany Patel MD Urine RBC's None Normal 0-4 [facility] Comment on above: Result Comment: Refe rence range defined for non-centrifuged specimen. Performed By: #### U CORINNEO, UAX #### [address] [address] [address] Supervisor: Giovany Patel MD Urine WBC's 2 TO 5 Normal 0-5 [facility] Comment on above: Performed By: #### U MICAO, UAX #### [address] Supervisor: Giovany Ptael MD Basic Metabolic Profon 09-05 Anion gap [Moles/Vol] 8 mmol/L Low 9-16 [facility] Comment on above: Performed By: #### U CORINNEO, UAX #### [address] [address] Supervisor: Giovany Patel MD Calcium [Mass/Vol] 9.1 mg/dL Normal 8.6-10.4 [facility] Comment on above: Performed By: #### U MICAO, UAX #### [address] Supervisor: Giovany Patel MD Chloride [Moles/Vol] 96 mmol/L Low 98-107 [facility] Comment on above: Performed By: #### U CORINNEO, UAX #### [address] [address] Supervisor: Giovany Patel MD CO2 [Moles/Vol] 35 mmol/L High 20-31 [facility] Comment on above: Performed By: #### U CORINNEO, UAX #### [address] Supervisor: Giovany Patel MD Creatinine [Mass/Vol] 0.5 mg/dL Normal 0.50-0.90 [facility] Comment on above: Performed By: #### U CORINNEO, UAX #### [address] [address] [address] Supervisor: Giovany Patel MD GFR/1.73 sq M.predicted among non-blacks MDRD (S/P/Bld) [Vol rate/Area] mL/min/{1.73_m2} Normal >60 [facility] Comment on above: Result Comment: These [...] By: #### Michelle RESENDIZ UAX #### [facility] [employer] [address] [place] [address] [address] Supervisor: Giovany Patel MD Glucose [Mass/Vol] 123 mg/dL High 74-99 [facility] Comment on above: Performed By: #### U MARTÍN UAX #### [facility] [employer] [address] [place] [address] [address] Supervisor: Giovany Patel MD Potassium [Moles/Vol] 4.4 mmol/L Normal 3.7-5.3 [facility] Comment on above: Performed By: #### Michelle RESENDIZ UAX #### [facility] [employer] [address] [place] [address] [address] Supervisor: Giovany Patel MD Sodium [Moles/Vol] 139 mmol/L Normal 136-145 [facility] Comment on above: Performed By: #### Michelle RESENDIZ UAX #### [facility] [employer] [address] [place] [address] [address] Supervisor: Giovany Patel MD Urea nitrogen [Mass/Vol] 18 mg/dL Normal 8-23 [facility] Comment on above: Performed By: #### Michelle RESENDIZ UAX #### [facility] [employer] [address] [place] [address] [address] Supervisor: Giovany Patel MD Anion gap [Moles/Vol] 10 mmol/L Normal 9-16 [facility] Comment on above: Performed By: #### MARYLU Garces MP #### [facility] [address] [place] [address] [address] Supervisor: Giovany Patel MD Calcium [Mass/Vol] 9.8 mg/dL Normal 8.6-10.4 [facility] Comment on above: Performed By: #### B MP, TROPI #### [facility] [address] [place] [address] Supervisor: Giovany Patel MD Chloride [Moles/Vol] 96 mmol/L Low 98-107 [facility] Comment on above: Performed By: #### B PONCHO, TROPI #### [facility] [address] [place] [address] Supervisor: Giovany Patel MD CO2 [Moles/Vol] 34 mmol/L High 20-31 [facility] Comment on above: Performed By: #### B PONCHO TROPI #### [facility] [employer] [address] [place] [address] [address] Supervisor: Giovany Patel MD Creatinine [Mass/Vol] 0.6 mg/dL Normal 0.50-0.90 [facility] Comment on above: Performed By: #### B PONCHO TROPI #### [facility] [address] [place] [address] [address] Supervisor: Giovany Patel MD GFR/1.73 sq M.predicted among non-blacks MDRD (S/P/Bld) [Vol rate/Area] mL/min/{1.73_m2} Normal >60 [facility] Comment on above: Result Comment: These [...] renal tubular secretion. Performed By: #### B PONCHO TROPI #### [facility] [address] [place] [address] Supervisor: Giovany Patel MD Glucose [Mass/Vol] 119 mg/dL High 74-99 [facility] Comment on above: Performed By: #### B PONCHO TROPI #### [employer] [address] [place] [address] Supervisor: Giovnay Patel MD Potassium [Moles/Vol] 5.2 mmol/L Normal 3.7-5.3 [facility] Comment on above: Performed By: #### B MP, TROPI #### [address] [address] [address] Supervisor: Giovany Patel MD Sodium [Moles/Vol] 140 mmol/L Normal 136-145 [facility] Comment on above: Performed By: #### B PONCHO TROPI #### [facility] [employer] [address] [place] [address] [address] Supervisor: Giovany Patel MD Urea nitrogen [Mass/Vol] 21 mg/dL Normal 8-23 [facility] Comment on above: Performed By: #### B PONCHO TROPI #### [address] [address] Supervisor: Giovany Patel MD Brain Natri. Peptideon 09-05 Natriuretic peptide B (Bld) [Mass/Vol] 2721 pg/mL High 0-300 [facility] Comment on above: Result Comment: An a ge-independent cutoff point of 300 pg/ml has a 98% negative predictive value excluding acute heart failure. Performed By: #### F RICHARD, FEBC, BNP #### [facility] [employer] [address] [place] [address] [address] Supervisor: Giovany Patel MD CBCon 09-06-2023 Erythrocyte distribution width (RBC) [Ratio] 17.7 % High 11.8-14.4 [facility] Comment on above: Performed By: #### C BC #### [address] [address] [address] Supervisor: Giovany Patel MD Hematocrit (Bld) [Volume fraction] 27.7 % Low 36.3-47.1 [facility] Comment on above: Performed By: #### C BC #### [address] [address] Supervisor: Giovany Patel MD Hemoglobin (Bld) [Mass/Vol] 8.3 g/dL Low 11.9-15.1 [facility] Comment on above: Performed By: #### C BC #### [address] [address] Supervisor: Giovany Patel MD MCH (RBC) [Entitic mass] 29.9 pg Normal 25.2-33.5 [facility] Comment on above: Performed By: #### C BC #### [address] [address] Supervisor: Giovany Patel MD MCHC (RBC) [Mass/Vol] 30.0 g/dL Normal 28.4-34.8 [facility] Comment on above: Performed By: #### C BC #### [address] [address] Supervisor: Giovany Patel MD MCV (RBC) [Entitic vol] 99.6 fL Normal 82.6-102.9 [facility] Comment on above: Performed By: #### C BC #### [address] [address] Supervisor: Giovany Patel MD NRBC Automated 0.0 per 100 WBC Normal 0.0 [facility] Comment on above: Performed By: #### C BC #### [address] [address] Supervisor: Giovany Patel MD Platelet mean volume (Bld) [Entitic vol] 8.9 fL Normal 8.1-13.5 [facility] Comment on above: Performed By: #### C BC #### [address] [address] [address] Supervisor: Giovany Patel MD Platelets (Bld) [#/Vol] 341 10*3/uL Normal 138-453 [facility] Comment on above: Performed By: #### C BC #### [address] [address] [address] Supervisor: Giovany Patel MD RBC (Bld) [#/Vol] 2.78 10*6/uL Low 3.95-5.11 [facility] Comment on above: Performed By: #### C BC #### [address] [address] Supervisor: Giovany Patel MD WBC (Bld) [#/Vol] 12.6 10*3/uL High 3.5-11.3 [facility] Comment on above: Performed By: #### C BC #### [address] [address] Supervisor: Giovany Patel MD Ferritinon 09-06-2023 Ferritin [Mass/Vol] 380 ng/mL High 13-150 [facility] Comment on above: Result Comment: No r eference range established for this age/gender. Performed By: #### F YENY RAMOS, BNP #### [address] [address] [address] Supervisor: Giovany Patel MD Glucose,Whole Bloodon 2023 Glucose [Mass/Vol] 112 mg/dL High 65-105 [facility] Iron Binding Cap.on 09-06-19 24 % Fe Saturation 11 % Low 20-55 [facility] Comment on above: Performed By: #### F YENY RAMOS, BNP #### [address] [address] Supervisor: Giovany Patel MD Iron [Mass/Vol] 24 ug/dL Low 37-145 [facility] Comment on above: Performed By: #### F RICHARD, FEBC, BNP #### [facility] [address] [place] [address] [address] Supervisor: Giovany Patel MD Total Fe Binding Cap 209 ug/dL Low 250-450 [facility] Comment on above: Performed By: #### F RICHARD, FEBC, BNP #### [facility] [address] [place] [address] [address] Supervisor: Giovany Patel MD Unbound Fe Bind Cap 185 ug/dL Normal 112-347 [facility] Comment on above: Performed By: #### F RICHARD, FEBC, BNP #### [employer] [address] [place] [address] Supervisor: Giovany Patel MD Procalcitoninon 09-06-2023 Procalcitonin 0.08 ng/mL Normal 0.00-0.09 [facility] Comment on above: Result Comment: Suspected [...] entered into the Change in Procalcitonin Calculator ([email or web address]) to determine the patient's Mortality Risk Prognosis In healthy neonates, plasma Procalcitonin (PCT) concentrations increase gradually after , reaching peak values at about 24 hours of age then decrease to normal values below 0.5 ng/mL by 48-72 hours of age. Performed By: #### U MICAO, UAX #### [facility] [employer] [address] [place], [place] [id number] Supervisor: Giovany Patel MD Troponinon 09-06-2023 Troponin, High Sens 20 ng/L High 0-14 [facility] Comment on above: Result Comment: High Sensitivity Troponin values cannot be compared with other Troponin methodologies. Performed By: #### U MARTÍN, UAX #### [facility] [address] [place], [place] [id number] Supervisor: Giovany Patel MD Troponin, High Sens 21 ng/L High 0-14 [facility] Comment on above: Result Comment: High Sensitivity Troponin values cannot be compared with other Troponin methodologies. Performed By: #### U MARTÍN UAX #### [facility] [address] [place] [address] Supervisor: Giovany Patel MD XR CHEST PORTABLEon 09-06-19 [...] Zenon Light MD 09/06/23 Final result Normal [facility] BNPon 02-26-2022 Natriuretic peptide B (Bld) [Mass/Vol] 3520.0 pg/mL Critically high <=1,800.0 [facility] Comment on above: Performed By: #### C MP, BNP #### [facility] [address] [address] [address] Yisel Liu CBC AUTO DIFFon 02-26-2022 BASO # 0.0 103/ul Normal 0.0-0.1 [facility] Comment on above: Performed By: #### C BC #### [facility] [address] [address] [address] Yisel Liu Basophils/100 WBC (Bld) 0.1 % Critically low 0.2-2.0 [facility] Comment on above: Performed By: #### C BC #### [facility] [address] [address] [address] Yisel Liu EO # 0.0 103/ul Normal 0.0-0.7 [facility] Comment on above: Performed By: #### C BC #### [facility] [address] [address] [address] Yisel Liu Eosinophils/100 WBC (Bld) 0.0 % Critically low 0.9-7.0 [facility] Comment on above: Performed By: #### C BC #### [facility] [address] [place] [address] Dr. Yisel Liu Erythrocyte distribution width (RBC) [Ratio] 16.6 % Critically high 11.0-15.0 [facility] Comment on above: Performed By: #### C BC #### [facility] [address] [place] [address] Dr. Yisel Liu Hematocrit (Bld) [Volume fraction] 36.2 % Normal 36.0-48.0 [facility] Comment on above: Performed By: #### C BC #### [facility] [address] [place] [address] Dr. Yisel Liu Hemoglobin (Bld) [Mass/Vol] 11.1 g/dL Critically low 12.0-16.0 [facility] Comment on above: Performed By: #### C BC #### [facility] [address] [place] [address] Dr. Yisel Liu IG # 0.14 10e3/ul Critically high 0.00-0.03 [facility] Comment on above: Performed By: #### C BC #### [facility] [address] [address] [address] Yisel Liu IG % 1.0 % Critically high 0.0-0.5 [facility] Comment on above: Performed By: #### C BC #### [facility] [address] [address] [address] Yisel Liu LYMPH # 0.8 103/ul Critically low 1.2-3.8 [place] Comment on above: Performed By: #### C BC #### [facility] [address] [place] [address] Dr. Yisel Liu Lymphocytes/100 WBC (Bld) 5.9 % Critically low 20.5-60.0 [facility] Comment on above: Performed By: #### C BC #### [facility] [address] [place] [address] Dr. Yisel Liu MANUAL DIFF REQ NO Normal [facility] Comment on above: Performed By: #### C BC #### [facility] [address] [place] [address] Dr. Yisel Liu MCH (RBC) [Entitic mass] 28.0 pg Normal 26.7-34.0 [facility] Comment on above: Performed By: #### C BC #### [facility] [address] [place] [address] Dr. Yisel Liu MCHC (RBC) [Mass/Vol] 30.7 g/dL Normal 29.9-35.2 [facility] Comment on above: Performed By: #### C BC #### [facility] [address] [place] [address] Dr. Yisel Liu MCV (RBC) [Entitic vol] 91.2 fL Normal 81.0-99.0 [facility] Comment on above: Performed By: #### C BC #### [facility] [address] [place] [address] Dr. Yisel Liu MONO # 1.0 103/ul Critically high 0.3-0.8 [facility] Comment on above: Performed By: #### C BC #### [facility] [address] [place] [address] Dr. Yisel Liu Monocytes/100 WBC (Bld) 7.6 % Normal 1.7-12.0 [facility] Comment on above: Performed By: #### C BC #### [facility] [address] [address] [address] Yisel Liu NEUT # 11.4 103/ul Critically high 1.4-6.5 [facility] Comment on above: Performed By: #### C BC #### [facility] [id number] Yisel Liu Neutrophils/100 WBC (Bld) 85.4 % Critically high 43.0-75.0 [facility] Comment on above: Performed By: #### C BC #### [facility] [address] [address] [address] Yisel Liu Platelet mean volume (Bld) [Entitic vol] 8.8 fL Critically low 9.5-13.5 [facility] Comment on above: Performed By: #### C BC #### [facility] [address] [place] [address] Dr. Yisel Liu PLT 325 103/ul Normal 150-450 [facility] Comment on above: Performed By: #### C BC #### [facility] [address] [place] [address] Dr. Yisel Liu RBC 3.97 106/ul Critically low 4.20-5.40 [facility] Comment on above: Performed By: #### C BC #### [facility] [address] [place], [place] [id number] Dr. Yisel Liu WBC 13.4 103/ul Critically high 4.0-11.0 [facility] Comment on above: Performed By: #### C BC #### [facility] [address] [place] [address] Dr. Yisel Liu PROF 14(COMP METB)on 022 Albumin [Mass/Vol] 2.7 g/dL Critically low 3.4-5.0 [facility] Comment on above: Performed By: #### C MP, BNP #### [facility] [address] [place] [address] Dr. Yisel Liu Albumin/Globulin [Mass ratio] 0.6 {ratio} Normal [facility] Comment on above: Performed By: #### C MP, BNP #### [facility] [address] [address] [address] Yisel Liu ALP [Catalytic activity/Vol] 49 U/L Normal 46-116 [facility] Comment on above: Performed By: #### C MP, BNP #### [facility] [address] [address] [address] Yisel Liu ALT [Catalytic activity/Vol] 28 U/L Normal 14-59 [facility] Comment on above: Performed By: #### C MP, BNP #### [facility] [address] [address] [address] Yisel Liu Anion gap [Moles/Vol] 10.9 mmol/L Normal [facility] Comment on above: Performed By: #### C MP, BNP #### [facility] [address] [place] [address] Dr. Yisel Liu AST [Catalytic activity/Vol] 29 U/L Normal 15-37 [facility] Comment on above: Performed By: #### C MP, BNP #### [facility] [address] [place] [address] Dr. Yisel Liu Bilirubin [Mass/Vol] 0.5 mg/dL Normal 0.2-1.0 [facility] Comment on above: Performed By: #### C MP, BNP #### [facility] [address] [place] [address] Dr. Yisel Liu Calcium [Mass/Vol] 9.7 mg/dL Normal 8.5-10.1 [facility] Comment on above: Performed By: #### C MP, BNP #### [facility] [address] [place] [address] Dr. Yisel Liu Chloride [Moles/Vol] 97 mmol/L Critically low 98-107 [facility] Comment on above: Performed By: #### C MP, BNP #### [facility] [address] [address] [address] Yisel Liu CO2 [Moles/Vol] 38.5 mmol/L Critically high 21.0-32.0 [facility] Comment on above: Performed By: #### C MP, BNP #### [facility] [address] [address] [address] Yisel Liu Creatinine [Mass/Vol] 1.67 mg/dL Critically high 0.55-1.02 [facility] Comment on above: Performed By: #### C MP, BNP #### [facility] [address] [address] [address] Yisel Liu EGFR-AF ALGERIAN 36 mL/min/1.73m2 Critically low >=60 [facility] Comment on above: Performed By: #### C MP, BNP #### [facility] [address] [address] [address] Yisel Liu EGFR-NON AF ALGERIAN 30 mL/min/1.73m2 Critically low >=60 [facility] Comment on above: Performed By: #### C MP, BNP #### [facility] [address] [place] [address] Dr. Yisel Liu Globulin (S) [Mass/Vol] 4.8 g/dL Normal [facility] Comment on above: Performed By: #### C MP, BNP #### [facility] [address] [address] [address] Yisel Liu Glucose [Mass/Vol] 159 mg/dL Critically high 74-106 [facility] Comment on above: Performed By: #### C MP, BNP #### [facility] [address] [place] [address] Dr. Yisel Liu Potassium [Moles/Vol] 5.4 mmol/L Critically high 3.5-5.1 [facility] Comment on above: Performed By: #### C MP, BNP #### [facility] [address] [address] [address] Yisel Liu Protein [Mass/Vol] 7.5 g/dL Normal 6.4-8.2 The [facility] Comment on above: Performed By: #### C MP, BNP #### [facility] [address] [address] [address] Yisel Liu Sodium [Moles/Vol] 141 mmol/L Normal 136-145 [facility] Comment on above: Performed By: #### C MP, BNP #### [facility] [address] [address] [address] Yisel Liu Urea nitrogen [Mass/Vol] 61.0 mg/dL Critically high 7.0-18.0 [facility] Comment on above: Performed By: #### C MP, BNP #### [facility] [address] [address] [address] Yisel Liu Urea nitrogen/Creatinine [Mass ratio] 36.5 mg/mg Normal [facility] Comment on above: Performed By: #### C MP, BNP #### [facility] [address] [address] [address] Yisel Liu XR CHEST 1 Von [...] KOBI TOMAS Date: 2022-02-26 05:15 Normal [facility] BNPon 02-25-2022 Natriuretic peptide B (Bld) [Mass/Vol] 3112.0 pg/mL Critically high <=1,800.0 [facility] Comment on above: Performed By: #### P HVEN #### [facility] [address] [place] [address] Dr. Yisel Liu CBC AUTO DIFFon 02-25-2022 BASO # 0.0 103/ul Normal 0.0-0.1 [facility] Comment on above: Performed By: #### D IG #### [facility] [address] [place] [address] Dr. Yisel Liu Basophils/100 WBC (Bld) 0.1 % Critically low 0.2-2.0 [facility] Comment on above: Performed By: #### D IG #### [facility] [address] [place] [address] Dr. Yisel Liu EO # 0.0 103/ul Normal 0.0-0.7 [facility] Comment on above: Performed By: #### D IG #### [facility] [address] [address] [address] Yisel Liu Eosinophils/100 WBC (Bld) 0.0 % Critically low 0.9-7.0 [facility] Comment on above: Performed By: #### D IG #### [facility] [address] [place] [address] Dr. Yisel Liu Erythrocyte distribution width (RBC) [Ratio] 16.7 % Critically high 11.0-15.0 [facility] Comment on above: Performed By: #### D IG #### [facility] [address] [place] [address] Dr. Yisel Liu Hematocrit (Bld) [Volume fraction] 38.4 % Normal 36.0-48.0 [facility] Comment on above: Performed By: #### D IG #### [facility] [address] [place] [address] Dr. Yisel Liu Hemoglobin (Bld) [Mass/Vol] 11.9 g/dL Critically low 12.0-16.0 [facility] Comment on above: Performed By: #### D IG #### [facility] [address] [place] [address] Dr. Yisel Liu IG # 0.09 10e3/ul Critically high 0.00-0.[address] [facility] Comment on above: Performed By: #### D IG #### [facility] [address] [place] [address] Dr. Yisel Liu IG % 0.6 % Critically high 0.0-0.5 The [facility] Comment on above: Performed By: #### D IG #### [facility] [address] [place] [address] Dr. Yisel Liu LYMPH # 0.7 103/ul Critically low 1.2-3.8 The [facility] Comment on above: Performed By: #### D IG #### [facility] [address] [place] [address] Dr. Yisel Liu Lymphocytes/100 WBC (Bld) 5.0 % Critically low 20.5-60.0 [facility] Comment on above: Performed By: #### D IG #### [facility] [address] [place] [address] Dr. Yisel Liu MANUAL DIFF REQ NO Normal [facility] Comment on above: Performed By: #### D IG #### [facility] [address] [place] [address] Dr. Yisel Liu MCH (RBC) [Entitic mass] 28.0 pg Normal 26.7-34.0 [facility] Comment on above: Performed By: #### D IG #### [facility] [address] [place] [address] Dr. Yisel Liu MCHC (RBC) [Mass/Vol] 31.0 g/dL Normal 29.9-35.2 [facility] Comment on above: Performed By: #### D IG #### [facility] [address] [place] [address] Dr. Yisel Liu MCV (RBC) [Entitic vol] 90.4 fL Normal 81.0-99.0 [facility] Comment on above: Performed By: #### D IG #### [facility] [address] [place] [address] Dr. Yisel Liu MONO # 1.2 103/ul Critically high 0.3-0.8 [facility] Comment on above: Performed By: #### D IG #### [facility] [address] [place] [address] Dr. Yisel Liu Monocytes/100 WBC (Bld) 8.1 % Normal 1.7-12.0 [facility] Comment on above: Performed By: #### D IG #### [facility] [address] [place] [address] Dr. Yisel Liu NEUT # 12.2 103/ul Critically high 1.4-6.5 The [facility] Comment on above: Performed By: #### D IG #### [facility] [address] [place] [address] Dr. Yisel Liu Neutrophils/100 WBC (Bld) 86.2 % Critically high 43.0-75.0 [facility] Comment on above: Performed By: #### D IG #### [facility] [address] [place] [address] Dr. Yisel Liu Platelet mean volume (Bld) [Entitic vol] 8.8 fL Critically low 9.5-13.5 [facility] Comment on above: Performed By: #### D IG #### [facility] [address] [place] [address] Dr. Yisel Liu PLT 317 103/ul Normal 150-450 [facility] Comment on above: Performed By: #### D IG #### [facility] [address] [place] [address] Dr. Yisel Liu RBC 4.25 106/ul Normal 4.20-5.40 [facility] Comment on above: Performed By: #### D IG #### [facility] [address] [place] [address] Dr. Yisel Liu WBC 14.1 103/ul Critically high 4.0-11.0 [facility] Comment on above: Performed By: #### D IG #### [facility] [address] [place] [address] Dr. Yisel Liu POINT OF CARE GLUCOSEon Glucose [Mass/Vol] 312 mg/dL Critically high 74-106 [facility] Comment on above: Performed By: #### P OCGLUC #### [facility] [address] [place] [address] Dr. Yisel Liu Glucose [Mass/Vol] 94 mg/dL Normal 74-106 [facility] Comment on above: Performed By: #### D IG #### [facility] [address] [place] [address] Dr. Yisel Liu Glucose [Mass/Vol] 260 mg/dL Critically high 74-106 [facility] Comment on above: Performed By: #### C BC #### [facility] [address] [place] [address] Dr. Yisel Liu PROF 14(COMP METB)on 022 Albumin [Mass/Vol] 2.7 g/dL Critically low 3.4-5.0 [facility] Comment on above: Performed By: #### P HVEN #### [facility] [address] [place] [address] Dr. Yisel Liu Albumin/Globulin [Mass ratio] 0.5 {ratio} Normal [facility] Comment on above: Performed By: #### P HVEN #### [facility] [address] [address] [address] Yisel Liu ALP [Catalytic activity/Vol] 58 U/L Normal 46-116 [facility] Comment on above: Performed By: #### P HVEN #### [facility] [address] [place] [address] Dr. Yisel Liu ALT [Catalytic activity/Vol] 32 U/L Normal 14-59 [facility] Comment on above: Performed By: #### P HVEN #### [facility] [address] [place] [address] Dr. Yisel Liu Anion gap [Moles/Vol] 12.3 mmol/L Normal [facility] Comment on above: Performed By: #### P HVEN #### [facility] [address] [place] [address] Dr. Yisel Liu AST [Catalytic activity/Vol] 54 U/L Critically high 15-37 [facility] Comment on above: Performed By: #### P HVEN #### [facility] [address] [place] [address] Dr. Yisel Liu Bilirubin [Mass/Vol] 0.5 mg/dL Normal 0.2-1.0 [facility] Comment on above: Performed By: #### P HVEN #### [facility] [address] [place] [address] Dr. Yisel Liu Calcium [Mass/Vol] 9.6 mg/dL Normal 8.5-10.1 [facility] Comment on above: Performed By: #### P HVEN #### [facility] [address] [place] [address] Dr. Yisel Liu Chloride [Moles/Vol] 96 mmol/L Critically low 98-107 [facility] Comment on above: Performed By: #### P HVEN #### [facility] [address] [place] [address] Dr. Yisel Liu CO2 [Moles/Vol] 33.9 mmol/L Critically high 21.0-32.0 [facility] Comment on above: Performed By: #### P HVEN #### [facility] [address] [place] [address] Dr. Yisel Liu Creatinine [Mass/Vol] 1.42 mg/dL Critically high 0.55-1.02 [facility] Comment on above: Performed By: #### P HVEN #### [facility] [address] [place] [address] Dr. Yisel Liu EGFR-AF ALGERIAN 43 mL/min/1.73m2 Critically low >=60 [facility] Comment on above: Performed By: #### P HVEN #### [facility] [address] [place] [address] Dr. Yisel Liu EGFR-NON AF ALGERIAN 36 mL/min/1.73m2 Critically low >=60 [facility] Comment on above: Performed By: #### P HVEN #### [facility] [address] [place] [address] Dr. Yisel Liu Globulin (S) [Mass/Vol] 5.3 g/dL Normal [facility] Comment on above: Performed By: #### P HVEN #### [facility] [address] [place] [address] Dr. Yisel Liu Glucose [Mass/Vol] 236 mg/dL Critically high 74-106 [facility] Comment on above: Performed By: #### P HVEN #### [facility] [address] [place] [address] Dr. Yisel Liu Potassium [Moles/Vol] 4.2 mmol/L Normal 3.5-5.1 [facility] Comment on above: Performed By: #### P HVEN #### [facility] [address] [place] [address] Dr. Yisel Liu Protein [Mass/Vol] 8.0 g/dL Normal 6.4-8.2 [facility] Comment on above: Performed By: #### P HVEN #### [facility] [address] [address] [address] Yisel Liu Sodium [Moles/Vol] 138 mmol/L Normal 136-145 [facility] Comment on above: Performed By: #### P HVEN #### [facility] [address] [address] [address] Yisel Liu Urea nitrogen [Mass/Vol] 42.0 mg/dL Critically high 7.0-18.0 [facility] Comment on above: Performed By: #### P HVEN #### [facility] [address] [address] [address] Yisel Liu Urea nitrogen/Creatinine [Mass ratio] 29.6 mg/mg Normal [facility] Comment on above: Performed By: #### P HVEN #### [facility] [address] [address] [address] Yisel Liu XR CHEST 1 Von [...] ZENON TURNER Date: 2022-02-25 13:01 Normal [facility] XR CHEST 1 V EXAMINATION: XR CHES [...] BRITTANY YBARRA Date: 2022-02-25 06:38 Normal [facility] BNPon 02-24-2022 Natriuretic peptide B (Bld) [Mass/Vol] 3585.0 pg/mL Critically high <=1,800.0 [facility] Comment on above: Performed By: #### C MP, BNP #### [facility] [address] [place] [address] Dr. Yisel Liu CBC AUTO DIFFon 02-24-2022 BASO # 0.0 103/ul Normal 0.0-0.1 [facility] Comment on above: Performed By: #### C BC #### [facility] [address] [place] [address] Dr. Yisel Liu Basophils/100 WBC (Bld) 0.2 % Normal 0.2-2.0 [facility] Comment on above: Performed By: #### C BC #### [facility] [address] [place] [address] Dr. Yisel Liu EO # 0.0 103/ul Normal 0.0-0.7 [facility] Comment on above: Performed By: #### C BC #### [facility] [address] [place] [address] Dr. Yisel Liu Eosinophils/100 WBC (Bld) 0.0 % Critically low 0.9-7.0 [facility] Comment on above: Performed By: #### C BC #### [facility] [address] [place] [address] Dr. Yisel Liu Erythrocyte distribution width (RBC) [Ratio] 16.4 % Critically high 11.0-15.0 [facility] Comment on above: Performed By: #### C BC #### [facility] [address] [place] [address] Dr. Yisel Liu Hematocrit (Bld) [Volume fraction] 37.7 % Normal 36.0-48.0 [facility] Comment on above: Performed By: #### C BC #### [facility] [address] [place] [address] Dr. Yisel Liu Hemoglobin (Bld) [Mass/Vol] 11.8 g/dL Critically low 12.0-16.0 [facility] Comment on above: Performed By: #### C BC #### [facility] [address] [place] [address] Dr. Yisel Liu IG # 0.04 10e3/ul Critically high 0.00-0.03 [facility] Comment on above: Performed By: #### C BC #### [facility] [address] [place] [address] Dr. Yisel Liu IG % 0.3 % Normal 0.0-0.5 [facility] Comment on above: Performed By: #### C BC #### [facility] [address] [place] [address] Dr. Yisel Liu LYMPH # 0.6 103/ul Critically low 1.2-3.8 [place] Comment on above: Performed By: #### C BC #### [facility] [address] [place] [address] Dr. Yisel Liu Lymphocytes/100 WBC (Bld) 4.9 % Critically low 20.5-60.0 [facility] Comment on above: Performed By: #### C BC #### [facility] [address] [place] [address] Dr. Yisel Liu MANUAL DIFF REQ NO Normal [facility] Comment on above: Performed By: #### C BC #### [facility] [address] [place] [address] Dr. Yisel Liu MCH (RBC) [Entitic mass] 28.0 pg Normal 26.7-34.0 [facility] Comment on above: Performed By: #### C BC #### [facility] [address] [place] [address] Dr. Yisel Liu MCHC (RBC) [Mass/Vol] 31.3 g/dL Normal 29.9-35.2 [facility] Comment on above: Performed By: #### C BC #### [facility] [address] [place] [address] Dr. Yisel Liu MCV (RBC) [Entitic vol] 89.5 fL Normal 81.0-99.0 [facility] Comment on above: Performed By: #### C BC #### [facility] [address] [place] [address] Dr. Yisel Liu MONO # 0.8 103/ul Normal 0.3-0.8 [facility] Comment on above: Performed By: #### C BC #### [facility] [address] [place] [address] Dr. Yisel Liu Monocytes/100 WBC (Bld) 6.2 % Normal 1.7-12.0 [facility] Comment on above: Performed By: #### C BC #### [facility] [address] [place] [address] Dr. Yisel Liu NEUT # 11.5 103/ul Critically high 1.4-6.5 [facility] Comment on above: Performed By: #### C BC #### [facility] [address] [place] [address] Dr. Yisel Liu Neutrophils/100 WBC (Bld) 88.4 % Critically high 43.0-75.0 [facility] Comment on above: Performed By: #### C BC #### [facility] [address] [place] [address] Dr. Yisel Liu Platelet mean volume (Bld) [Entitic vol] 8.8 fL Critically low 9.5-13.5 [facility] Comment on above: Performed By: #### C BC #### [facility] [address] [place] [address] Dr. Yisel Liu PLT 361 103/ul Normal 150-450 [facility] Comment on above: Performed By: #### C BC #### [facility] [address] [place] [address] Dr. Yisel Liu RBC 4.21 106/ul Normal 4.20-5.40 [facility] Comment on above: Performed By: #### C BC #### [facility] [address] [place] [address] Dr. Yisel Liu WBC 13.0 103/ul Critically high 4.0-11.0 [facility] Comment on above: Performed By: #### C BC #### [facility] [address] [place] [address] Dr. Yisel Liu CULTURE URINEon 02-24-2022 CULTURE [...] F Trimethoprim/Sulfamet hoxazole <=20 S F Normal [facility] Comment on above: Performed By: #### D IG #### [facility] [address] [place] [address] Dr. Yisel Liu PH VENOUS BLOODon 02-24-2022 PCO2 VENOUS 55.2 mmHg Critically high 40.0-52.0 [facility] Comment on above: Performed By: #### C BC #### [facility] [address] [place] [address] Dr. Yisel Liu pH VENOUS 7.439 Critically high 7.330-7.430 [facility] Comment on above: Performed By: #### C BC #### [facility] [address] [place] [address] Dr. Yisel Liu POINT OF CARE GLUCOSEon Glucose [Mass/Vol] 232 mg/dL Critically high 74-106 [facility] Comment on above: Performed By: #### C MP, BNP #### [facility] [address] [address] [address] Yisel Liu Glucose [Mass/Vol] 198 mg/dL Critically high 74-106 [facility] Comment on above: Performed By: #### C MP, BNP #### [facility] [address] [address] [address] Yisel Liu Glucose [Mass/Vol] 270 mg/dL Critically high -106 [facility] Comment on above: Performed By: #### C MP, BNP #### [facility] [address] [place] [address] Dr. Yisel Liu Glucose [Mass/Vol] 324 mg/dL Critically high -106 [facility] Comment on above: Performed By: #### D IG #### [facility] [address] [place] [address] Dr. Yisel Liu PROF 14(COMP METB)on 022 Albumin [Mass/Vol] 2.9 g/dL Critically low 3.4-5.0 [facility] Comment on above: Performed By: #### C MP, BNP #### [facility] [address] [place] [address] Dr. Yisel Liu Albumin/Globulin [Mass ratio] 0.5 {ratio} [facility] Comment on above: Performed By: #### C MP, BNP #### [facility] [address] [place] [address] Dr. Yisel Liu ALP [Catalytic activity/Vol] 64 U/L Normal 46-116 [facility] Comment on above: Performed By: #### C MP, BNP #### [facility] [address] [place] [address] Dr. Yisel Liu ALT [Catalytic activity/Vol] 27 U/L Normal 14-59 [facility] Comment on above: Performed By: #### C MP, BNP #### [facility] [address] [place] [address] Dr. Yisel Liu Anion gap [Moles/Vol] 10.8 mmol/L Normal [facility] Comment on above: Performed By: #### C MP, BNP #### [facility] [address] [address] [address] Yiesl Liu AST [Catalytic activity/Vol] 44 U/L Critically high 15-37 [facility] Comment on above: Performed By: #### C MP, BNP #### [facility] [address] [address] [address] Yisel Liu Bilirubin [Mass/Vol] 0.4 mg/dL Normal 0.2-1.0 [facility] Comment on above: Performed By: #### C MP, BNP #### [facility] [address] [place] [address] Dr. Yisel Liu Calcium [Mass/Vol] 9.2 mg/dL Normal 8.5-10.1 [facility] Comment on above: Performed By: #### C MP, BNP #### [facility] [address] [place] [address] Dr. Yisel Liu Chloride [Moles/Vol] 96 mmol/L Critically low 98-107 [facility] Comment on above: Performed By: #### C MP, BNP #### [facility] [address] [place] [address] Dr. Yisel Liu CO2 [Moles/Vol] 36.6 mmol/L Critically high 21.0-32.0 [facility] Comment on above: Performed By: #### C MP, BNP #### [facility] [address] [place] [address] Dr. Yisel Liu Creatinine [Mass/Vol] 1.22 mg/dL Critically high 0.55-1.02 [facility] Comment on above: Performed By: #### C MP, BNP #### [facility] [address] [place] [address] Dr. Yisel Liu EGFR-AF ALGERIAN 52 mL/min/1.73m2 Critically low >=60 [facility] Comment on above: Performed By: #### C MP, BNP #### [facility] [address] [place] [address] Dr. Yisel Liu EGFR-NON AF ALGERIAN 43 mL/min/1.73m2 Critically low >=60 [facility] Comment on above: Performed By: #### C MP, BNP #### [facility] [address] [address] [address] Yisel Liu Globulin (S) [Mass/Vol] 5.3 g/dL Normal [facility] Comment on above: Performed By: #### C MP, BNP #### [facility] [address] [address] [address] Yisel Liu Glucose [Mass/Vol] 265 mg/dL Critically high 74-106 [facility] Comment on above: Performed By: #### C MP, BNP #### [facility] [address] [place] [address] Dr. Yisel Liu Potassium [Moles/Vol] 3.4 mmol/L Critically low 3.5-5.1 [facility] Comment on above: Performed By: #### C MP, BNP #### [facility] [address] [place] [address] Dr. Yisel Liu Protein [Mass/Vol] 8.2 g/dL Normal 6.4-8.2 [facility] Comment on above: Performed By: #### C MP, BNP #### [facility] [address] [place] [address] Dr. Yisel Liu Sodium [Moles/Vol] 140 mmol/L Normal 136-145 [facility] Comment on above: Performed By: #### C MP, BNP #### [facility] [address] [place] [address] Dr. Yisel Liu Urea nitrogen [Mass/Vol] 27.0 mg/dL Critically high 7.0-18.0 [facility] Comment on above: Performed By: #### C MP, BNP #### [facility] [address] [place] [address] Dr. Yisel Liu Urea nitrogen/Creatinine [Mass ratio] 22.1 mg/mg Normal [facility] Comment on above: Performed By: #### C MP, BNP #### [facility] [address] [place] [address] Dr. Yisel Liu T3, TOTAL (TRIIODOTHYRONINE) on 02-24-2022 T3, TOTAL 68 ng/dL Critically low 71-180 [place] Comment on above: Performed By: #### C MP, BNP #### [facility] [address] [address] [address] Yisel Liu XR CHEST 1 Von [...] IDANIA CUEVAS Date: 2022-02-24 07:10 Normal [facility] BNPon 02-23-2022 Natriuretic peptide B (Bld) [Mass/Vol] 3654.0 pg/mL Critically high <=1,800.0 [facility] Comment on above: Performed By: #### C MP, BNP #### [facility] [address] [address] [address] Yisel Liu CBC AUTO DIFFon 02-23-2022 BASO # 0.0 103/ul Normal 0.0-0.1 [facility] Comment on above: Performed By: #### C BC #### [facility] [address] [place] [address] Dr. Yisel Liu Basophils/100 WBC (Bld) 0.0 % Critically low 0.2-2.0 [facility] Comment on above: Performed By: #### C BC #### [facility] [address] [place] [address] Dr. Yisel Liu EO # 0.0 103/ul Normal 0.0-0.7 [facility] Comment on above: Performed By: #### C BC #### [facility] [address] [place] [address] Dr. Yisel Liu Eosinophils/100 WBC (Bld) 0.0 % Critically low 0.9-7.0 [facility] Comment on above: Performed By: #### C BC #### [facility] [address] [place] [address] Dr. Yisel Liu Erythrocyte distribution width (RBC) [Ratio] 16.2 % Critically high 11.0-15.0 [facility] Comment on above: Performed By: #### C BC #### [facility] [address] [place] [address] Dr. Yisel Liu Hematocrit (Bld) [Volume fraction] 36.1 % Normal 36.0-48.0 [facility] Comment on above: Performed By: #### C BC #### [facility] [address] [place] [address] Dr. Yisel Liu Hemoglobin (Bld) [Mass/Vol] 11.5 g/dL Critically low 12.0-16.0 [facility] Comment on above: Performed By: #### C BC #### [facility] [address] [place] [address] Dr. Yisel Liu IG # 0.01 10e3/ul Normal 0.00-0.03 [facility] Comment on above: Performed By: #### C BC #### [facility] [address] [place] [address] Dr. Yisel Liu IG % 0.2 % Normal 0.0-0.5 [facility] Comment on above: Performed By: #### C BC #### [facility] [address] [place] [address] Dr. Yisel Liu LYMPH # 0.5 103/ul Critically low 1.2-3.8 [place] Comment on above: Performed By: #### C BC #### [facility] [address] [place] [address] Dr. Yisel Liu Lymphocytes/100 WBC (Bld) 9.7 % Critically low 20.5-60.0 [facility] Comment on above: Performed By: #### C BC #### [facility] [address] [place] [address] Dr. Yisel Liu MANUAL DIFF REQ NO Normal [facility] Comment on above: Performed By: #### C BC #### [facility] [address] [address] [address] Yisel Liu MCH (RBC) [Entitic mass] 28.4 pg Normal 26.7-34.0 [facility] Comment on above: Performed By: #### C BC #### [facility] [address] [address] [address] Yisel Liu MCHC (RBC) [Mass/Vol] 31.9 g/dL Normal 29.9-35.2 [facility] Comment on above: Performed By: #### C BC #### [facility] [address] [place] [address] Dr. Yisel Liu MCV (RBC) [Entitic vol] 89.1 fL Normal 81.0-99.0 [facility] Comment on above: Performed By: #### C BC #### [facility] [address] [place] [address] Dr. Yisel Liu MONO # 0.2 103/ul Critically low 0.3-0.8 [place] Comment on above: Performed By: #### C BC #### [facility] [address] [place] [address] Dr. iYsel Liu Monocytes/100 WBC (Bld) 3.6 % Normal 1.7-12.0 [facility] Comment on above: Performed By: #### C BC #### [facility] [address] [place] [address] Dr. Yisel Liu NEUT # 4.8 103/ul Normal 1.4-6.5 [facility] Comment on above: Performed By: #### C BC #### [facility] [address] [place] [address] Dr. Yisel iLu Neutrophils/100 WBC (Bld) 86.5 % Critically high 43.0-75.0 [facility] Comment on above: Performed By: #### C BC #### [facility] [address] [place] [address] Dr. Yisel Liu Platelet mean volume (Bld) [Entitic vol] 9.0 fL Critically low 9.5-13.5 [facility] Comment on above: Performed By: #### C BC #### [facility] [address] [place], [place] [address] Dr. Yisel Liu PLT 278 103/ul Normal 150-450 [facility] Comment on above: Performed By: #### C BC #### [facility] [address] [place], [place] [address] Dr. Yisel Liu RBC 4.05 106/ul Critically low 4.20-5.40 [facility] Comment on above: Performed By: #### C BC #### [facility] [address] [place], [place] [address] Dr. Yisel Liu WBC 5.6 103/ul Normal 4.0-11.0 [facility] Comment on above: Performed By: #### C BC #### [facility] [address] [place], [place] [address] Dr. Yisel Liu ECHOCARDIO M/2D COMPLETEon 1 04-26-2021 ECHOCARDIO M/2D COMPLETE Patient: NURIS [place] Exam Date: 02/23/2022 : 1945 Gender:F Ordering : DR KARY CATHERINE . Admission #: [id number] Family : Order #: [id number] CLICK HERE TO VIEW EXAM ECHOCARDIOGRAM REPORT [...] (Peak Joseph): 1.55 cm2, 1.55 cm2 Deceleration Bailey: 1.84 m/s2 Pressure Half-Time: 561.41 ms Peak [...] Hill M.D. on 02/25/2022 at 12:52 Normal [facility] PH VENOUS BLOODon 02-23-2022 PCO2 VENOUS 48.0 mmHg Normal 40.0-52.0 [facility] Comment on above: Performed By: #### P HVEN #### [facility] [address] [address] [address] Yisel Liu pH VENOUS 7.479 Critically high 7.330-7.430 [facility] Comment on above: Performed By: #### P HVEN #### [facility] [address] [place] [address] Dr. Yisel Liu POINT OF CARE GLUCOSEon Glucose [Mass/Vol] 323 mg/dL Critically high [address] [place] [address] Comment on above: Performed By: #### C MP, BNP #### [facility] [address] [address] [address] Yisel Liu Glucose [Mass/Vol] 372 mg/dL Critically high [address] [place] [address] Comment on above: Performed By: #### C MP, BNP #### [facility] [address] [address] [address] Yisel iLu Glucose [Mass/Vol] 347 mg/dL Critically high [address] [place] [address] Comment on above: Performed By: #### D IG #### [facility] [address] [address] [address] Yisel Liu Glucose [Mass/Vol] 474 mg/dL Critically high [address] [place] [address] Comment on above: Performed By: #### C MP, BNP #### [facility] [address] [place] [address] Dr. Yisel Liu PROF 14(COMP METB)on 022 Albumin [Mass/Vol] 2.8 g/dL Critically low 3.4-5.0 [facility] Comment on above: Performed By: #### C MP, BNP #### [facility] [address] [address] [address] Yisel Liu Albumin/Globulin [Mass ratio] 0.5 {ratio} Normal [facility] Comment on above: Performed By: #### C MP, BNP #### [facility] [address] [address] [address] Yisel Liu ALP [Catalytic activity/Vol] 72 U/L Normal 46-116 [facility] Comment on above: Performed By: #### C MP, BNP #### [facility] [address] [address] [address] Yisel Liu ALT [Catalytic activity/Vol] 14 U/L Normal 14-59 [facility] Comment on above: Performed By: #### C MP, BNP #### [facility] [address] [address] [address] Yisel Liu Anion gap [Moles/Vol] 11.3 mmol/L Normal [facility] Comment on above: Performed By: #### C MP, BNP #### [facility] [address] [address] [address] Yisel Liu AST [Catalytic activity/Vol] 23 U/L Normal 15-37 [facility] Comment on above: Performed By: #### C MP, BNP #### [facility] [address] [address] [address] Yisel Liu Bilirubin [Mass/Vol] 0.5 mg/dL Normal 0.2-1.0 [facility] Comment on above: Performed By: #### C MP, BNP #### [facility] [address] [address] [address] Yisel Liu Calcium [Mass/Vol] 9.0 mg/dL Normal 8.5-10.1 [facility] Comment on above: Performed By: #### C MP, BNP #### [facility] [address] [address] [address] Yisel Liu Chloride [Moles/Vol] 92 mmol/L Critically low 98-107 [facility] Comment on above: Performed By: #### C MP, BNP #### [facility] [address] [address] [address] Yisel Liu CO2 [Moles/Vol] 34.8 mmol/L Critically high 21.0-32.0 [facility] Comment on above: Performed By: #### C MP, BNP #### [facility] [address] [address] [address] Yisel Liu Creatinine [Mass/Vol] 1.00 mg/dL Normal 0.55-1.02 [facility] Comment on above: Performed By: #### C MP, BNP #### [facility] [address] [address] [address] Yisel Liu EGFR-AF ALGERIAN >60 Normal >=60 [facility] Comment on above: Performed By: #### C MP, BNP #### [facility] [address] [address] [address] Yisel Liu EGFR-NON AF ALGERIAN 54 mL/min/1.73m2 Critically low >=60 [facility] Comment on above: Performed By: #### C MP, BNP #### [facility] [address] [address] [address] Yisel Liu Globulin (S) [Mass/Vol] 5.5 g/dL Normal [facility] Comment on above: Performed By: #### C MP, BNP #### [facility] [address] [address] [address] Yisel Liu Glucose [Mass/Vol] 416 mg/dL Critically high 74-106 [facility] Comment on above: Performed By: #### C MP, BNP #### [facility] [address] [address] [address] Yisel Liu Potassium [Moles/Vol] 3.1 mmol/L Critically low 3.5-5.1 [facility] Comment on above: Performed By: #### C MP, BNP #### [facility] [address] [address] [address] Yisel Liu Protein [Mass/Vol] 8.3 g/dL Critically high 6.4-8.2 [facility] Comment on above: Performed By: #### C MP, BNP #### [facility] [address] [address] [address] Yisel Liu Sodium [Moles/Vol] 135 mmol/L Critically low 136-145 [facility] Comment on above: Performed By: #### C MP, BNP #### [facility] [address] [address] [address] Yisel Liu Urea nitrogen [Mass/Vol] 20.0 mg/dL Critically high 7.0-18.0 [facility] Comment on above: Performed By: #### C MP, BNP #### [facility] [address] [address] [address] Yisel Liu Urea nitrogen/Creatinine [Mass ratio] 20.0 mg/mg Normal [facility] Comment on above: Performed By: #### C MP, BNP #### [facility] [address] [address] [address] Yisel Liu XR CHEST 1 Von [...] by: BRITTANY YBARRA Date: 2022-02-23 07:12 Normal [facility] AMMONIAon 02-22-2022 Ammonia (P) [Moles/Vol] 36 umol/L Critically high 11-32 [facility] Comment on above: Performed By: #### C MP, BNP #### [facility] [address] [place] [address] Dr. Yisel Liu BLOOD GASES BTYon 02-22-2022 02 MODE SIMPLE MASK Normal [facility] Comment on above: Performed By: #### A BG #### [facility] [address] [place] [address] Dr. Yisel Liu ALLENS TEST Positive [facility] Comment on above: Performed By: #### A BG #### [facility] [address] [address] [address] Yisel Liu Base excess Calc (Bld) [Moles/Vol] 0.7 mmol/L Normal -2.0-2.0 [facility] Comment on above: Performed By: #### A BG #### [facility] [address] [place] [address] Dr. Yisel Liu BIPAP PRESSURE [facility] Comment on above: Performed By: #### A BG #### [facility] [address] [place] [address] Dr. Yisel Liu CPAP [facility] Comment on above: Performed By: #### A BG #### [facility] [address] [address] [address] Yisel Liu FIO2 [facility] Comment on above: Performed By: #### A BG #### [facility] [address] [place] [address] Dr. Yisel Liu HCO3 (Bld) [Moles/Vol] 28.8 mmol/L Critically high 22.0-26.0 [facility] Comment on above: Performed By: #### A BG #### [facility] [address] [place] [address] Dr. Yisel Liu LPM 6 [facility] Comment on above: Performed By: #### A BG #### [facility] [address] [place] [address] Dr. Yisel Liu MINUTE VOLUME Normal [facility] Comment on above: Performed By: #### A BG #### [facility] [address] [place] [address] Dr. Yisel Liu Oxygen (Bld) [Partial pressure] 82.6 mm[Hg] Normal 80.0-100.0 [facility] Comment on above: Performed By: #### A BG #### [facility] [address] [place] [address] Dr. Yisel Liu Oxygen saturation in Blood 93.0 % Critically low 95.0-100.0 [facility] Comment on above: Performed By: #### A BG #### [facility] [address] [place] [address] Dr. Yisel Liu PCO2 74.3 mmHg Critically high 35.0-45.0 [facility] Comment on above: Performed By: #### A BG #### [facility] [address] [place] [address] Dr. Yisel Liu [facility] Comment on above: Performed By: #### A BG #### [facility] [address] [place] [address] Dr. Yisel Liu pH (Bld) 7.197 [pH] Critically low 7.350-7.450 [facility] Comment on above: Performed By: #### A BG #### [facility] [address] [place] [address] Dr. Yisel Liu [facility] Comment on above: Performed By: #### A BG #### [facility] [address] [place] [address] Dr. Yisel Liu PS [facility] Comment on above: Performed By: #### A BG #### [facility] [address] [place] [address] Dr. Yisel Liu PUNCTURE SITE RR Normal [facility] Comment on above: Performed By: #### A BG #### [facility] [address] [place] [address] Dr. Yisel Liu RATE [facility] Comment on above: Performed By: #### A BG #### [facility] [address] [place] [address] Dr. Yisel Liu VENT MODE [facility] Comment on above: Performed By: #### A BG #### [facility] [address] [place] [address] Dr. Yisel Liu [place] Normal [facility] Comment on above: Performed By: #### A BG #### [facility] [address] [place] [address] Dr. Yisel Liu BNPon 02-22-2022 Natriuretic peptide B (Bld) [Mass/Vol] 2771.0 pg/mL Critically high <=1,800.0 [facility] Comment on above: Performed By: #### C MP, BNP #### [facility] [address] [place] [address] Dr. Yisel Liu CARDIAC MIKEY 3-6on 2 CK [Catalytic activity/Vol] 18 U/L Critically low 26-192 [facility] Comment on above: Performed By: #### C BC #### [facility] [address] [place] [address] Dr. Yisel Liu CK.MB [Mass/Vol] ng/mL Normal <=3.60 [facility] Comment on above: Performed By: #### C BC #### [facility] [address] [place] [address] Dr. Yisel Liu HSTROP 10.3 pg/mL Normal 4.0-51.3 [facility] Comment on above: Result Comment: CUT- OFF POINTS HAVE BEEN ESTABLISHED BASED ON THE FOURTH UNIVERSAL DEFINITIONS OF MYOCARDIAL INFARCTION. THE UPPER REFERENCE LIMIT (URL) OF TROPONIN, DEFINED THE 99TH PERCENTILE OF cTnI DISTRIBUTION IN A REFERENCE POPULATION, HAS BEEN CONFIRMED THE DECISION THRESHOLD FOR AL DIAGNOSIS. Performed By: #### C BC #### [facility] [address] [place] [address] Dr. Yisel Liu CK [Catalytic activity/Vol] 36 U/L Normal 26-192 [facility] Comment on above: Performed By: #### C MP, BNP #### [facility] [address] [place] [address] Dr. Yisel Liu CK.MB [Mass/Vol] ng/mL Normal <=3.60 [facility] Comment on above: Performed By: #### C MP, BNP #### [facility] [address] [place] [address] Dr. Yisel Liu HSTROP 9.8 pg/mL Normal 4.0-51.3 [facility] Comment on above: Result Comment: CUT- OFF POINTS HAVE BEEN ESTABLISHED BASED ON THE FOURTH UNIVERSAL DEFINITIONS OF MYOCARDIAL INFARCTION. THE UPPER REFERENCE LIMIT (URL) OF TROPONIN, DEFINED THE 99TH PERCENTILE OF cTnI DISTRIBUTION IN A REFERENCE POPULATION, HAS BEEN CONFIRMED THE DECISION THRESHOLD FOR AL DIAGNOSIS. Performed By: #### C MP, BNP #### [facility] [address] [place] [address] Dr. Yisel Liu CK [Catalytic activity/Vol] 15 U/L Critically low 26-192 [facility] Comment on above: Performed By: #### C MP, BNP #### [facility] [address] [place] [address] Dr. Yisel Liu CK.MB [Mass/Vol] ng/mL Normal <=3.60 [facility] Comment on above: Performed By: #### C MP, BNP #### [facility] [address] [place] [address] Dr. Yisel Liu HSTROP 9.7 pg/mL Normal 4.0-51.3 [facility] Comment on above: Result Comment: CUT- OFF POINTS HAVE BEEN ESTABLISHED BASED ON THE FOURTH UNIVERSAL DEFINITIONS OF MYOCARDIAL INFARCTION. THE UPPER REFERENCE LIMIT (URL) OF TROPONIN, DEFINED THE 99TH PERCENTILE OF cTnI DISTRIBUTION IN A REFERENCE POPULATION, HAS BEEN CONFIRMED THE DECISION THRESHOLD FOR AL DIAGNOSIS. Performed By: #### C MP, BNP #### [facility] [address] [place] [address] Dr. Yisel Liu CK [Catalytic activity/Vol] 8 U/L Critically low 26-192 [facility] Comment on above: Performed By: #### C MREP #### [facility] [address] [place] [address] Dr. Yisel Liu Performed By: #### D IG #### [facility] [address] [place] [address] Dr. Yisel Liu CK.MB [Mass/Vol] ng/mL Normal <=3.60 [facility] Comment on above: Performed By: #### C MREP #### [facility] [address] [place] [address] Dr. Yisel Liu Performed By: #### D IG #### [facility] [address] [place] [address] Dr. Yisel Liu HSTROP 9.4 pg/mL Normal 4.0-51.3 [facility] Comment on above: Result Comment: CUT- OFF POINTS HAVE BEEN ESTABLISHED BASED ON THE FOURTH UNIVERSAL DEFINITIONS OF MYOCARDIAL INFARCTION. THE UPPER REFERENCE LIMIT (URL) OF TROPONIN, DEFINED THE 99TH PERCENTILE OF cTnI DISTRIBUTION IN A REFERENCE POPULATION, HAS BEEN CONFIRMED THE DECISION THRESHOLD FOR AL DIAGNOSIS. Performed By: #### C MREP #### [facility] [address] [place] [address] Dr. Yisel Liu CARDIAC MIKEY ADMITon 022 HSTROP 11.1 pg/mL Normal 4.0-51.3 [facility] Comment on above: Result Comment: CUT- OFF POINTS HAVE BEEN ESTABLISHED BASED ON THE FOURTH UNIVERSAL DEFINITIONS OF MYOCARDIAL INFARCTION. THE UPPER REFERENCE LIMIT (URL) OF TROPONIN, DEFINED THE 99TH PERCENTILE OF cTnI DISTRIBUTION IN A REFERENCE POPULATION, HAS BEEN CONFIRMED THE DECISION THRESHOLD FOR AL DIAGNOSIS. Performed By: #### D IG #### [facility] [address] [place] [address] Dr. Yisel Liu YULI 16 ng/mL Normal 9-82 [facility] Comment on above: Performed By: #### D IG #### [facility] [address] [place] [address] Dr. Yisel Liu CBC AUTO DIFFon 02-22-2022 BASO # 0.0 103/ul Normal 0.0-0.1 [facility] Comment on above: Performed By: #### C BC #### [facility] [address] [place] [address] Dr. Yisel Liu Basophils/100 WBC (Bld) 0.2 % Normal 0.2-2.0 [facility] Comment on above: Performed By: #### C BC #### [facility] [address] [place] [address] Dr. Yisel Liu EO # 0.1 103/ul Normal 0.0-0.7 [facility] Comment on above: Performed By: #### C BC #### [facility] [address] [address] [address] Yisel Liu Eosinophils/100 WBC (Bld) 0.7 % Critically low 0.9-7.0 [facility] Comment on above: Performed By: #### C BC #### [facility] [address] [place] [address] Dr. Yisel Liu Erythrocyte distribution width (RBC) [Ratio] 17.0 % Critically high 11.0-15.0 [facility] Comment on above: Performed By: #### C BC #### [facility] [address] [place] [address] Dr. Yisel Liu Hematocrit (Bld) [Volume fraction] 33.1 % Critically low 36.0-48.0 [facility] Comment on above: Performed By: #### C BC #### [facility] [address] [place] [address] Dr. Yisel Liu Hemoglobin (Bld) [Mass/Vol] 10.0 g/dL Critically low 12.0-16.0 [facility] Comment on above: Performed By: #### C BC #### [facility] [address] [place] [address] Dr. Yisel Liu IG # 0.08 10e3/ul Critically high 0.00-0.03 [facility] Comment on above: Performed By: #### C BC #### [facility] [address] [place] [address] Dr. Yisel Liu IG % 0.9 % Critically high 0.0-0.5 [facility] Comment on above: Performed By: #### C BC #### [facility] [address] [place] [address] Dr. Yisel Liu LYMPH # 0.8 103/ul Critically low 1.2-3.8 [place] Comment on above: Performed By: #### C BC #### [facility] [address] [place] [address] Dr. Yisel Liu Lymphocytes/100 WBC (Bld) 9.2 % Critically low 20.5-60.0 [facility] Comment on above: Performed By: #### C BC #### [facility] [address] [place] [address] Dr. Yisel Liu MANUAL DIFF REQ NO Normal [facility] Comment on above: Performed By: #### C BC #### [facility] [address] [place] [address] Dr. Yisel Liu MCH (RBC) [Entitic mass] 28.3 pg Normal 26.7-34.0 [facility] Comment on above: Performed By: #### C BC #### [facility] [address] [place] [address] Dr. Yisel Liu MCHC (RBC) [Mass/Vol] 30.2 g/dL Normal 29.9-35.2 [facility] Comment on above: Performed By: #### C BC #### [facility] [address] [place] [address] Dr. Yiesl Liu MCV (RBC) [Entitic vol] 93.8 fL Normal 81.0-99.0 [facility] Comment on above: Performed By: #### C BC #### [facility] [address] [place] [address] Dr. Yisel Liu MONO # 0.8 103/ul Normal 0.3-0.8 [facility] Comment on above: Performed By: #### C BC #### [facility] [address] [place] [address] Dr. Yisel Liu Monocytes/100 WBC (Bld) 8.7 % Normal 1.7-12.0 [facility] Comment on above: Performed By: #### C BC #### [facility] [address] [place] [address] Dr. Yisel Liu NEUT # 6.9 103/ul Critically high 1.4-6.5 [facility] Comment on above: Performed By: #### C BC #### [facility] [address] [place] [address] Dr. Yisel Liu Neutrophils/100 WBC (Bld) 80.3 % Critically high 43.0-75.0 [facility] Comment on above: Performed By: #### C BC #### [facility] [address] [place], [place] [address] Dr. Yisel Liu Platelet mean volume (Bld) [Entitic vol] 8.8 fL Critically low 9.5-13.5 [facility] Comment on above: Performed By: #### C BC #### [facility] [id number] Yisel Liu PLT 269 103/ul Normal 150-450 [facility] Comment on above: Performed By: #### C BC #### [facility] [address] [address] [address] Yisel Liu RBC 3.53 106/ul Critically low 4.20-5.40 [facility] Comment on above: Performed By: #### C BC #### [facility] [address] [address] [address] Yisel Liu WBC 8.7 103/ul Normal 4.0-11.0 [facility] Comment on above: Performed By: #### C BC #### [facility] [address] [place], [place] [address] HEAD WO CONon [...] KARSTEN MUJICA Date: 2022-02-22 06:27 Normal [facility] CTA CHEST WO W CONon 022 CTA [...] ZENON TURNER Date: 2022-02-22 08:00 Normal [facility] CULTURE BLOODon 02-22-2022 Microscopic examination of blood, culture Culture Observations: NO GROWTH AT 5 DAYS. Normal [facility] Comment on above: Performed By: #### D IG #### [facility] [address] [place] [address] Dr. Yisel Liu Covid-19 PCR (CVDTB)on SARS-CoV-2 (COVID-19) RNA JACINTA+probe Ql (Unsp spec) Not detected Normal NOT DETECTED [facility] Comment on above: Result Comment: When diagnostic [...] for this test is supported by the Systems Project Manager of Health and Human Service's declaration that [...] used). Performed By: #### C BC #### [facility] [address] [place] [address] Dr. Yisel Liu DIGOXINon 02-22-2022 DIG 0.5 ng/mL Critically low 0.9-2.0 [place] Comment on above: Performed By: #### D IG #### [facility] [address] [place] [address] Dr. Yisel Liu ER URINE PROFILEon 2 Bilirubin Ql (U) Negative Normal NEGATIVE [facility] Comment on above: Performed By: #### P HVEN #### [facility] [address] [place] [address] Dr. Yisel Liu Clarity (U) CLEAR Normal CLEAR [facility] Comment on above: Performed By: #### P HVEN #### [facility] [address] [place] [address] Dr. Yisel Liu Color (U) YELLOW Normal YELLOW [facility] Comment on above: Performed By: #### P HVEN #### [facility] [address] [place] [address] Dr. Yisel Liu ERUAHD A micrscopic examination will be performed if indicated. Normal [facility] Comment on above: Performed By: #### P HVEN #### [facility] [address] [address] [address] Yisel Liu Glucose Ql (U) Negative Normal NEGATIVE [facility] Comment on above: Performed By: #### P HVEN #### [facility] [address] [place] [address] Dr. Yisel Liu Hemoglobin Ql (U) Negative Normal NEGATIVE [facility] Comment on above: Performed By: #### P HVEN #### [facility] [address] [place] [address] Dr. Yisel Liu Ketones Ql (U) TRACE Abnormal NEGATIVE [facility] Comment on above: Performed By: #### P HVEN #### [facility] [address] [place] [address] Dr. Yisel Liu LEUKOCYTES TRACE Abnormal NEGATIVE [facility] Comment on above: Performed By: #### P HVEN #### [facility] [address] [place] [address] Dr. Yisel Liu Nitrite Ql (U) Positive Abnormal NEGATIVE [facility] Comment on above: Performed By: #### P HVEN #### [facility] [address] [place] [address] Dr. Yisel Liu pH (U) 5.5 [pH] Normal 5-9 [facility] Comment on above: Performed By: #### P HVEN #### [facility] [address] [place] [address] Dr. Yisel Liu SPEC GRAVITY >=1.030 Abnormal 1.005-<=1.025 [facility] Comment on above: Performed By: #### P HVEN #### [facility] [address] [place] [address] Dr. Yisel Liu UA PROTEIN TRACE Normal NEGATIVE/ TRACE [facility] Comment on above: Performed By: #### P HVEN #### [facility] [address] [place] [address] Dr. Yisel Liu UR MICRO IND INDICATED Normal [facility] Comment on above: Performed By: #### P HVEN #### [facility] [address] [place] [address] Dr. Yisel Liu Urobilinogen Qn (U) 1.0 {Krystian'U}/dL Normal 0.2 - 1. 0 [facility] Comment on above: Performed By: #### P HVEN #### [facility] [address] [place] [address] Dr. Yisel Liu INFLUENZA A AND B AGon 02-22 INFLUBNEGH SEE BELOW Normal [facility] Comment on above: Result Comment: Nega tive for Flu B protein antigen. Infection due to Flu B cannot be ruled out. Flu B antigen in the sample may be below the detection limit of the test. Performed By: #### C MP, BNP #### [facility] [address] [place] [address] Dr. Yisel Liu INFLUENZA A AG Positive Abnormal NEGATIVE SEE COMMENT [facility] Comment on above: Performed By: #### C MP, BNP #### [facility] [address] [place] [address] Dr. Yisel Liu INFLUENZA B AG Negative Normal NEGATIVE SEE COMMENT [facility] Comment on above: Performed By: #### C MP, BNP #### [facility] [address] [place] [address] Dr. Yisel Liu INFLUPOSH SEE BELOW Normal [facility] Comment on above: Result Comment: NOTE : Live attenuated influenzae vaccine viruses can cause a positive result for a rapid influenza diagnostic test if administered up to 7 days prior to rapid testing. Performed By: #### C MP, BNP #### [facility] [address] [place] [address] Dr. Yisel Liu INTERNAL CONTROLS Within Normal Limits Normal Wi thin Normal Limits [facility] Comment on above: Performed By: #### C MP, BNP #### [facility] [address] [place] [address] Dr. Yisel Liu LACTATE/LACTIC ACIDon 2021 Lactate [Moles/Vol] 4.1 mmol/L Critically high 0.4-1.9 [facility] Comment on above: Performed By: #### C MP, BNP #### [facility] [address] [place] [address] Dr. Yisel Liu Lactate [Moles/Vol] 3.3 mmol/L Critically high 0.4-1.9 [facility] Comment on above: Performed By: #### C BC #### [facility] [address] [place] [address] Dr. Yisel Liu Lactate [Moles/Vol] 3.2 mmol/L Critically high 0.4-1.9 [facility] Comment on above: Performed By: #### C BC #### [facility] [address] [place] [address] Dr. Yisel Liu MAGNESIUMon 02-22-2022 Magnesium [Mass/Vol] 1.6 mg/dL Critically low 1.8-2.4 [facility] Comment on above: Performed By: #### C BC #### [facility] [address] [place] [address] Dr. Yisel Liu OCC BLD IMMUNOASSAYon 2021 OCCULT BLOOD Negative Normal NEGATIVE [facility] Comment on above: Performed By: #### C BC #### [facility] [address] [place] [address] Dr. Yisel Liu PH VENOUS BLOODon 02-22-2022 PCO2 VENOUS 44.3 mmHg Normal 40.0-52.0 [facility] Comment on above: Performed By: #### C MP, BNP #### [facility] [address] [place] [address] Dr. Yisel Liu pH VENOUS 7.410 Normal 7.330-7.430 [facility] Comment on above: Performed By: #### C MP, BNP #### [facility] [address] [place] [address] Dr. Yisel Liu POINT OF CARE GLUCOSEon Glucose [Mass/Vol] 313 mg/dL Critically high 74-106 [facility] Comment on above: Performed By: #### P OCGLUC #### [facility] [address] [place] [address] Dr. Yisel Liu Glucose [Mass/Vol] 240 mg/dL Critically high 74-106 [facility] Comment on above: Performed By: #### C MP, BNP #### [facility] [address] [place] [address] Dr. Yisel Liu Glucose [Mass/Vol] 226 mg/dL Critically high 74-106 [facility] Comment on above: Performed By: #### C MP, BNP #### [facility] [address] [address] [address] Yisel Liu PROF CHEM 8 (BAS METB)on Anion gap [Moles/Vol] 11.2 mmol/L Normal [facility] Comment on above: Performed By: #### D IG #### [facility] [address] [address] [address] Yisel Liu Calcium [Mass/Vol] 9.0 mg/dL Normal 8.5-10.1 [facility] Comment on above: Performed By: #### D IG #### [facility] [address] [address] [address] Yisel Liu Chloride [Moles/Vol] 100 mmol/L Normal 98-107 [facility] Comment on above: Performed By: #### D IG #### [facility] [address] [address] [address] Yisel Liu CO2 [Moles/Vol] 32.1 mmol/L Critically high 21.0-32.0 [facility] Comment on above: Performed By: #### D IG #### [facility] [address] [address] [address] Yisel Liu Creatinine [Mass/Vol] 0.71 mg/dL Normal 0.55-1.02 [facility] Comment on above: Performed By: #### D IG #### [facility] [address] [address] [address] Yisel Liu EGFR-AF ALGERIAN >60 Normal >=60 [facility] Comment on above: Performed By: #### D IG #### [facility] [address] [address] [address] Yisel Liu EGFR-NON AF ALGERIAN >60 Normal >=60 [facility] Comment on above: Performed By: #### D IG #### [facility] [address] [address] [address] Yisel Liu Glucose [Mass/Vol] 118 mg/dL Critically high 74-106 [facility] Comment on above: Performed By: #### D IG #### [facility] [address] [place] [address] Dr. Yisel Liu Potassium [Moles/Vol] 4.3 mmol/L Normal 3.5-5.1 [facility] Comment on above: Performed By: #### D IG #### [facility] [address] [address] [address] Yisel Liu Sodium [Moles/Vol] 139 mmol/L Normal 136-145 [facility] Comment on above: Performed By: #### D IG #### [facility] [address] [place] [address] Dr. Yisel Liu Urea nitrogen [Mass/Vol] 14.0 mg/dL Normal 7.0-18.0 [facility] Comment on above: Performed By: #### D IG #### [facility] [address] [place] [address] Dr. Yisel Liu Urea nitrogen/Creatinine [Mass ratio] 19.7 mg/mg Normal [facility] Comment on above: Performed By: #### D IG #### [facility] [address] [place] [address] Dr. Yisel Liu T4on 02-22-2022 T4 [Mass/Vol] 9.40 ug/dL Normal 4.80-13.90 [facility] Comment on above: Performed By: #### C BC #### [facility] [address] [place] [address] Dr. Yisel Liu TSHon 02-22-2022 TSH 1.438 uIU/mL Normal 0.358-3.740 [facility] Comment on above: Performed By: #### C BC #### [facility] [address] [place] [address] Dr. Yisel Liu URINE MICROSCOPIC ONLYon BACTERIA LARGE Abnormal NONE SEEN [facility] Comment on above: Performed By: #### P HVEN #### [facility] [address] [place] [address] Dr. Yisel Liu Bacteria identified Cx Nom (U) INDICATED Normal [facility] Comment on above: Performed By: #### P HVEN #### [facility] [address] [place] [address] Dr. Yisel Liu CAST NONE SEEN Normal NONE SEEN [facility] Comment on above: Performed By: #### P HVEN #### [facility] [address] [place] [address] Dr. Yisel Liu Crystals LM Nom (Urine sed) NONE SEEN Normal NONE SEEN [facility] Comment on above: Performed By: #### P HVEN #### [facility] [address] [place] [address] Dr. Yisel Liu Epithelial cells LM Ql (Urine sed) FEW Abnormal NONE SEEN /RARE [facility] Comment on above: Performed By: #### P HVEN #### [facility] [address] [place] [address] Dr. Yisel Liu MUCOUS TRACE Abnormal NONE SEEN [facility] Comment on above: Performed By: #### P HVEN #### [facility] [address] [place] [address] Dr. Yisel Liu RBC 0-2 Normal 0-2 [facility] Comment on above: Performed By: #### P HVEN #### [facility] [address] [place] [address] Dr. Yisel Liu WBC (U) [#/Vol] /uL Abnormal NONE SEEN [facility] Comment on above: Performed By: #### P HVEN #### [facility] [address] [place] [address] Dr. Yisel Liu XR CHEST 1 Von 02-22-2022 XR CHEST 1 V EXAM: XR CHEST [...] by: ANUSHKA FLANAGAN Date: 2022-02-22 07:17 Normal [facility] Encounters Encounter Date Encounter Type Care Provider Facility Start: 11-05-2023 End: 11-05-2023 [facility] Start: 09-06-2023 End: 09-09-2023 Evaluation and management of inpatient MARY KAY [facility] Start: 02-22-2022 End: 02-26-2022 Evaluation and management of inpatient DR KARY CATHERINE Facility:[facility] Payers Date Payer Category Payer Medicaid [id number] 1960 Medicaid [id number] 1960 Medicare [id number] 1945 Unknown [id number] 1945 Unknown [id number] Progress note 11-05-2023 Note Date & Type Note Facility 11-05-2023 Note Cardiology Clinic No te Chief Complaint: New patient HPI: Nuris Sweeney is a 78 y.o. female who has a past medical history of Diabetes (CMS/HCC)., afib, CAD s/p PCI, and HFpEF. Patient presents today to establish care. Patient was recently hospitalized for bradycardia, thought to be due to digoxin toxicity. Her digoxin was stopped and she was asked to follow up with cardiology. She is accompanied by her son today. She is not able to provide detailed information. She denies any anginal chest pain. No shortness of breath. There is concern that she is not getting enough fluid at nursing facility. She is having episodes of tachycardia and borderline blood pressure. Echo during hospitalization showed normal EF. She has since been started on stotalol. ,6 ROS 10 point ROS is performed and is negative unless otherwise specified in HPI Past Medical History She has a past medical history of Diabetes (CMS/HCC). Surgical History She has no past surgical history on file. Social History She reports that she has quit smoking. Her smoking use included cigarettes. She has never used smokeless tobacco. She reports that she does not currently use alcohol. She reports that she does not currently use drugs. Family History No family history on file. Medications Current Outpatient Medications on File Prior to Visit Medication Sig Dispense Refill acetaminophen (Tylenol) 500 mg tablet Take 2 tablets by mouth in the morning. artificial tear,fexod-lrb-apb, 0.1-0.3-0.2 % drops 1 drop. atorvastatin (Lipitor) 20 mg tablet Take 1 tablet by mouth in the morning. calcium carbonate-vitamin D3 500 mg-5 mcg (200 unit) tablet Take 1 tablet by mouth in the morning and at bedtime. clobetasol (Temovate) 0.05 % cream Apply topically. collagenase 250 unit/gram ointment Apply topically in the morning. dextromethorphan-quinidine (Nuedexta) 20-10 mg capsule Take 1 capsule by mouth. digoxin (Lanoxin) 125 MCG tablet Take 125 mcg by mouth if needed each day. DULoxetine (Cymbalta) [address] capsule Take 30 mg by mouth. famotidine (Pepcid) 40 mg tablet Take 1 tablet by mouth at bedtime. ferrous sulfate 325 (65 Fe) MG EC tablet Take 325 mg by mouth. furosemide (Lasix) 20 mg tablet Take 1 tablet by mouth in the morning. lamoTRIgine (LaMICtal) 25 mg tablet Take 25 mg by mouth. linaGLIPtin (Tradjenta) 5 mg tablet Take 5 mg by mouth in the morning. magnesium oxide (Mag-Ox) 200 mg split tablet Take 1 tablet by mouth in the morning. memantine 21 mg capsule,sprinkle,ER 24hr Take 1 capsule by mouth in the morning. metFORMIN (Glucophage) 1,000 mg tablet Take 1 tablet by mouth at bedtime. midodrine (Proamatine) 5 mg tablet Take 5 mg by mouth three times daily. nitroglycerin (Nitrostat) 0.[address] 0.4 mg under the tongue. nystatin (Mycostatin) 100,000 unit/gram powder Apply topically. polyethylene glycol (Glycolax) 17 gram packet Take 17 g by mouth. psyllium husk 2.6 gram/4.1 gram powder Take 0.4 g by mouth. rivaroxaban (Xarelto) 20 mg tablet Take 20 mg by mouth. RSH INV 100 melatonin 3 MG tablet Take 1 tablet by mouth. sodium chloride 0.9 % nebulizer solution Take 3 mL by nebulization if needed for wheezing. sotalol (Betapace) 80 mg tablet Take by mouth. spironolactone (Aldactone) 50 mg tablet Take 1 tablet by mouth in the morning. traZODone (Desyrel) 150 mg tablet Take 75 mg by mouth. No current facility-administered medications on file prior to visit. Allergies Aspirin, Hydrochlorothiazide, Lyrica [pregabalin], Penicillins, Prozac [fluoxetine], Sulfa (sulfonamide antibiotics), Tetanus vaccines and toxoid, and Zoloft [sertraline] Physical Exam VITAL SIGNS: BP 110/60 (BP Location: Right arm, Patient Position: Sitting, BP Cuff Size: Adult) Pulse 63 Resp 16 Ht 1.676 m (5' 6 ) Wt 90.7 kg (200 lb) SpO2 90% BMI 32.28 kg/m??? Constitutional: Well developed, Well nourished, No acute distress, Non-toxic appearance. HENT: Normocephalic, Atraumatic, Bilateral external ears have normal appearance, Nose appears normal, nares are patent. Eyes: PERRLA, EOMI, Conjunctiva normal, No discharge. Neck: Normal range of motion, No tenderness, Supple, No stridor. No cervical lymphadenopathy noted. Cardiovascular: Normal heart rate, Normal rhythm, No murmurs, No rubs, No gallops. Thorax & Lungs: Normal breath sounds, No respiratory distress, No wheezing, No chest tenderness to palpation. Abdomen: Bowel sounds normal, Soft, Nontender, No masses, No pulsatile masses. Skin: Warm, Dry, No erythema, No rash. Back: No tenderness, No CVA tenderness. Extremities: Intact distal pulses, No edema, No tenderness, No cyanosis, No clubbing. Musculoskeletal: Grossly normal strength in extremities Neurologic: Alert & oriented x 3, no gross focal neurological deficits Psychiatric: Affect normal, Judgment normal, Mood normal. Assessment/Plan: Nuris Sweeney is a 78 y.o. female with Paroxysmal a (more content not included)... [facility] Summary Purpose Family History No Family History Records FoundNo Family History Records FoundNo Family History Records Found Advance Directives No Advanced Directives Records FoundNo Advanced Directives Records FoundNo Advanced Directives Records Found Additional Source Comments INFORMATION SOURCE (unrecogn ized section and content) DATE CREATED AUTHOR 02/28/2022 [facility] DATE CREATED AUTHOR AUTHOR'S ORGANIZ ATION 09/15/2023 [facility] DATE CREATED AUTHOR AUTHOR'S ORGANIZ ATION 11/07/2023 [facility] FOR RECORDS PERTAINING TO PATIENTS WHO [...] BE BASED ON THE PRIMARY CLINICAL RECORDS. [facility] [employer] provides no warranty or guarantee of the accuracy or completeness of information in this document.
--- NOTE | 2023-12-07 22:06 | ED_ITS ---
HPI - Chest Pain General Chief Complaint: Chest Pain Stated Complaint: Chest Pain Time Seen by Provider: 12/07/23 21:58 Source: patient and medical record Mode of arrival: ambulance Limitations: other Limitations comment: dementia History of Present Illness HPI narrative: This 78-year-old female with a history of atrial fibrillation who is on Xarelto is transferred from the [facility] where she currently resides for evaluation of an episode of chest pain earlier in the day. The patient is irritated that she was transferred to the emergency department because she states she does not want to be here. She denies that she is having any pain upon arrival. She states she thinks she was having chest pain because she had beans for dinner. She denies any abdominal pain. She is not short of breath. She has not had any vomiting or diarrhea. Her family arrived shortly after she did and stated that they felt that she sounded more raspy than she typically does. She does have chronic lung disease and has had pleurocentesis in the past that was unsuccessful due to the denseness of the mucus in her lungs. She has not had a cough. She has not had a fever that anybody has noticed. Related Data Home Medications ?Medication ?Instructions ?Recorded ?Confirmed acetaminophen 500 mg capsule 1,000 mg PO DAILY 09/06/23 12/07/23 atorvastatin 20 mg tablet (Lipitor) 20 mg PO DAILY 09/06/23 12/07/23 calcium carbonate 500 mg-vitamin 1 tab PO BID 09/06/23 12/07/23 D3 10 mcg (400 unit) tablet (Oyster Shell Calcium-Vitamin D3) dextromethorphan 20 mg-quinidine 1 cap PO Q12H 09/06/23 12/07/23 10 mg capsule (Nuedexta) duloxetine 30 mg capsule,delayed 30 mg PO DAILY 09/06/23 12/07/23 release (Cymbalta) ferrous sulfate 325 mg (65 mg 325 mg PO DAILY 09/06/23 12/07/23 iron) tablet (FeroSul) lamotrigine 100 mg tablet 100 mg PO DAILY 09/06/23 12/07/23 (Lamictal) magnesium 200 mg tablet 400 mg PO DAILY 09/06/23 12/07/23 melatonin 10 mg capsule 10 mg PO DAILY 09/06/23 12/07/23 memantine 21 mg capsule 21 mg PO DAILY 09/06/23 12/07/23 sprinkle,extended release 24hr metformin 1,000 mg tablet 1,000 mg PO DAILY 09/06/23 12/07/23 nitroglycerin 0.4 mg sublingual 0.4 mg sublingual Q5M 09/06/23 12/07/23 tablet (Nitrostat) polyethylene glycol 3350 17 17 g PO QDAY constipation 09/06/23 12/07/23 gram/dose oral powder (ClearLax) psyllium husk 0.4 gram capsule 0.4 g PO BID 09/06/23 12/07/23 (Daily Fiber) rivaroxaban 20 mg tablet (Xarelto) 20 mg PO DAILY 09/06/23 12/07/23 spironolactone 50 mg tablet 50 mg PO DAILY 09/06/23 12/07/23 artificial 1 drp ophthalmic (eye) Q12H 09/24/23 12/07/23 tears(kylyync-vdkgdzyj-bkrphje) 0.1 %-0.3 %-0.2 % eye drops (GenTeal Tears Moderate) clobetasol 0.05 % topical cream 1 applic topical BID PRN vaginal 09/24/23 12/07/23 irritation famotidine 40 mg tablet (Pepcid) 40 mg PO DAILY 09/24/23 12/07/23 lamotrigine 25 mg tablet 25 mg PO DAILY 09/24/23 12/07/23 linagliptin 5 mg tablet (Tradjenta) 5 mg PO DAILY 09/24/23 12/07/23 furosemide 20 mg tablet 20 mg PO QDAY 10/06/23 12/07/23 midodrine 5 mg tablet 5 mg PO BID PRN hypotension 10/06/23 12/07/23 sotalol 80 mg tablet 80 mg PO Q12H 12/07/23 12/07/23 Allergies Allergy/AdvReac Type Severity Reaction Status Date / Time aspirin Allergy Unknown Unknown Verified 12/07/23 22:27 fluoxetine [From Prozac] Allergy Unknown Unknown Verified 12/07/23 22:27 hydrochlorothiazide Allergy Unknown Unknown Verified 12/07/23 22:27 Penicillins Allergy Unknown Unknown Verified 12/07/23 22:27 pregabalin [From Lyrica] Allergy Unknown Unknown Verified 12/07/23 22:27 sertraline [From Zoloft] Allergy Unknown Unknown Verified 12/07/23 22:27 Sulfa (Sulfonamide Allergy Unknown Unknown Verified 12/07/23 22:27 Antibiotics) tetanus and diphtheria Allergy Unknown Unknown Verified 12/07/23 22:27 toxoids Review of Systems ROS Status of ROS 10 or more systems reviewed and unremark able except as noted in history and below Exam Narrative Exam Narrative: Vital signs and Nursing Notes reviewed: Patient is afebrile, she is tachycardic with a pulse of 113, blood pressure is stable, she is not hypoxic with pulse ox of 95% on nasal cannula-the patient does wear 3 L supplemental oxygen General: Nontoxic overweight elderly female, she is speaking loudly and does not appear to be in any respiratory distress although her voice is raspy HEENT: Normocephalic atraumatic, mucous membranes are moist and pink, eyes are clear, normal conjunctiva, patient is partially blind Neck: Supple, no meningeal signs, no anterior or posterior cervical lymphadenopathy Chest: Coarse breath sounds with adventitial lung sounds without respiratory distress or rales CVS: Atrial fibrillation between 100-120 bpm, pulses are brisk and equal bilaterally ABD: Soft, nondistended, nontender, no rebound guarding or rigidity, bowel sounds are normal, no pulsatile masses appreciated Extremities: Moving all extremities, no lower extremity tenderness or swelling noted, negative Homans' sign, pulses are brisk and equal bilaterally Skin: Normal in appearance without rash,pallor, petechiae or purpura Neuro: No focal deficits Constitutional Vital Signs, click to edit/add: Last Vital Signs Temp 98.3 F 12/07/23 21:46 Pulse 113 H 12/08/23 01:20 Resp 21 H 12/08/23 01:20 BP 101/67 12/08/23 01:00 Pulse Ox 95 12/08/23 01:20 O2 Del Method Nasal Cannula 12/07/23 21:46 Course Vital Signs Vital signs: Vital Signs Temperature 98.3 F 12/07/23 21:46 Pulse Rate 98 H 12/07/23 21:46 Respiratory Rate 18 12/07/23 21:46 Blood Pressure 104/79 12/07/23 21:46 Pulse Oximetry 95 12/07/23 21:46 Oxygen Delivery Method Nasal Cannula 12/07/23 21:46 Temperature 98.3 F 12/07/23 21:46 Pulse Rate 113 H 12/08/23 01:20 Respiratory Rate 21 H 12/08/23 01:20 Blood Pressure 101/67 12/08/23 01:00 Pulse Oximetry 95 12/08/23 01:20 Oxygen Delivery Method Nasal Cannula 12/07/23 21:46 MDM - Chest Pain MDM Narrative Medical decision making narrative: This 78-year-old female with a history of atrial fibrillation and chronic lung disease as well as CHF is brought to the emergency department by EMS from the [facility] where she currently resides. Her family arrived shortly thereafter. They are concerned because they states she is more raspy than normal. She does have a raspy voice. She denies any chest pain and is aggravated that the [facility] sent her to the emergency department. She thinks that she had an episode of chest pain because she ate beans earlier in the day which typically do not agree with her. She is not having any abdominal pain nausea or vomiting. An EKG done upon arrival was atrial fibrillation at 80 bpm. She was placed on the monitor. She did have episodes of A-fib up into the 120s but otherwise remained hemodynamically stable. An IV was placed and routine labs were ordered. She has a normal white count and hemoglobin. COVID- 19 testing is negative. Electrolytes are normal. Troponin is normal. BNP is elevated but not markedly elevated at his as it has been in the past. Chest x- ray was reviewed by radiology and shows airspace opacities in both lungs with recommendation for correlation for pneumonia versus CHF. The patient has not had a fever and her BNP is not markedly elevated. She does not have any JVD or rales. Reviewed her previous chest x-rays and she does have an increased right upper lobe infiltrate compared to her most recent chest x-ray that was obtained at this facility which is concerning for pneumonia. This was discussed with the patient and the family. I suggested that she be admitted for several days of antibiotics but the patient flatly refuses to be admitted. The family request that she be given a dose of antibiotics in the emergency department and discharged home with oral antibiotics. She was given a dose of doxycycline in t emergency department and will be discharged home with a 7-day course of doxycycline with recommendation for close follow-up with the [facility] physician and further evaluation of her respiratory status. The family states she is full code and in charge of her own wishes and wished to be return to the [facility]. Medical Records Data Attestation: I reviewed the patient's medical records. Medical records narrative: The [address] [address] XRay Report Signed Patient: NAVEED PRADO MR#: [id number] : 1945 Acct:[id number] Age/Sex: 78 / F ADM Date: 12/07/23 Loc: ER Attending Dr: Ordering Physician: Lisa Guo Date of Service: 12/07/23 Procedure(s): XR chest 1V Accession Number(s): [id number] cc: MARY CANNON D.O.; Lisa Marker~ The [address] [address] Patient Name: NAVEED PRADO MRN: [id number] date: 1945 Sex: F Assigned Patient Location: ED.MAIN Current Patient Location: ED.MAIN Accession/Order Number: [id number] Exam Date: 12/07/2023 22:20 Report Date: 12/07/2023 22:54 At the request of: LISA DANYELL Procedure: XR chest 1V CHEST X-RAY HISTORY: Chest pain. COMPARISON: 09/24/2023 chest x-ray TECHNIQUE: 1 views of the chest submitted for review. FINDINGS: Lines/Tubes: None. Costophrenic angles: Blunting of the LEFT costophrenic angle is present. Lungs: The lungs are adequately expanded. Airspace opacities are demonstrated in bilateral lung hall. Heart: Enlarged. Pulmonary Vascularity: Increased. Bones: Osseous structures are within normal limits for age. XR/XR chest 1V IMPRESSION: Airspace opacities in bilateral lungs. Please correlate for pneumonia versus fluid overload.. Electronically authenticated by: PHYLLIS BAILEY Date: 12/07/2023 22:54 Lab Data Attestation: I reviewed the patient's lab results. Labs: Lab Results 12/07/23 12/07/23 Range/Units 22:11 22:30 WBC 10.5 (4.0-11.0) 10^3/uL RBC 3.58 L (4.20-5.40) 10^6/uL Hgb 10.1 L (12.0-16.0) g/dL Hct 33.3 L (36.0-48.0) % MCV 93.0 (81.0-99.0) fL MCH 28.2 (26.7-34.0) pg MCHC 30.3 (29.9-35.2) g/dL RDW 16.7 H (11.0-15.0) % Plt Count 322 (150-450) 10^3/uL MPV 9.0 L (9.5-13.5) fL Neut % (Auto) 75.0 (43.0-75.0) % Lymph % (Auto) 16.1 L (20.5-60.0) % [place] % (Auto) 6.0 (1.7-12.0) % Eos % (Auto) 1.8 (0.9-7.0) % Baso % (Auto) 0.4 (0.2-2.0) % Neut # (Auto) 7.8 H (1.4-6.5) 10^3/uL Lymph # (Auto) 1.7 (1.2-3.8) 10^3/uL [place] # (Auto) 0.6 (0.3-0.8) 10^3/uL Eos # (Auto) 0.2 (0.0-0.7) 10^3/uL Baso # (Auto) 0.0 (0.0-0.1) 10^3/uL Abs Immat Gran (auto) 0.07 H (0.00-0.03) 10^3/uL Imm/Tot Granulo (auto) 0.7 H (0.0-0.5) % Sodium 135 L (136-145) mmol/L Potassium 4.6 (3.5-5.1) mmol/L Chloride 97 L (98-107) mmol/L Carbon Dioxide 37.4 H (21.0-32.0) mmol/L Anion Gap 5.2 BUN 28.0 H (7.0-18.0) mg/dL Creatinine 0.86 (0.55-1.02) mg/dL Est GFR ( Amer) >60 (>=60) Est GFR (Non-Af Amer) >60 (>=60) BUN/Creatinine Ratio 32.6 Glucose 256 H (74-106) mg/dL Calcium 9.7 (8.5-10.1) mg/dL Total Bilirubin 0.5 (0.2-1.0) mg/dL AST 10 L (15-37) U/L ALT 14 (14-59) U/L Alkaline Phosphatase 89 (46-116) U/L Troponin I High Sens 6.0 (4.0-51.3) pg/mL NT-Pro-B Natriuret Pep 1767.0 (<=1800.0) pg/mL Total Protein 7.5 (6.4-8.2) g/dL Albumin 2.9 L (3.4-5.0) g/dL Globulin 4.6 g/dL Albumin/Globulin Ratio 0.6 SARS-CoV-2 Ag (CV2AG) Negative (NEGATIVE) ECG Data Attestation: I personally reviewed and interpreted this ECG as follows: (Atrial fibrillation 80 bpm, nonspecific ST changes, Q wave noted in lead III, low voltage in chest leads, no acute ST segment elevation or T wave inversion) Heart Score History: Slightly/Non-Suspicious ECG: Normal Age: >65 years Risk Factors: >3 Risk Factors/ HX of CAD:2 Troponin: <Normal Limit Total Heart Score Recommendations & Risks:: 4 Discharge Plan Discharge Chief Complaint: Chest Pain Clinical Impression: Atypical chest pain, Pneumonia Patient Disposition: Home, Self-Care Time of Disposition Decision: 00:51 Condition: Good Prescriptions / Home Meds: No Action clobetasol 0.05 % cream 1 applic TOPICAL BID PRN (Reason: vaginal irritation) lamotrigine 25 mg tablet 25 mg PO DAILY artificial tear(xiasr-zsf-dpx) [GenTeal Tears Moderate] 0.1-0.3-0.2 % drops 1 drp OPHTHALMIC (EYE) Q12H famotidine [Pepcid] 40 mg tablet 40 mg PO DAILY Tradjenta 5 mg tablet 5 mg PO DAILY sotalol 80 mg tablet 80 mg PO Q12H acetaminophen 500 mg capsule 1,000 mg PO DAILY ferrous sulfate [FeroSul] 325 mg (65 mg iron) tablet 325 mg PO DAILY lamotrigine [Lamictal] 100 mg tablet 100 mg PO DAILY atorvastatin [Lipitor] 20 mg tablet 20 mg PO DAILY magnesium 200 mg tablet 400 mg PO DAILY metformin 1,000 mg tablet 1,000 mg PO DAILY calcium carbonate-vitamin D3 [Oyster Shell Calcium-Vit D3] 500 mg-10 mcg (400 unit) tablet 1 tab PO BID Xarelto 20 mg tablet 20 mg PO DAILY Rx Instructions: must administer with evening meal psyllium husk [Daily Fiber] 0.4 gram capsule 0.4 g PO BID memantine 21 mg capsule,sprinkle,ER 24hr 21 mg PO DAILY spironolactone 50 mg tablet 50 mg PO DAILY polyethylene glycol 3350 [ClearLax] 17 gram/dose powder 17 g PO QDAY nitroglycerin [Nitrostat] 0.4 mg tablet, sublingual 0.4 mg sublingual Q5M Rx Instructions: do not exceed 3 doses per episode Nuedexta 20-10 mg capsule 1 cap PO Q12H duloxetine [Cymbalta] 30 mg capsule,delayed release(DR/EC) 30 mg PO DAILY melatonin 10 mg capsule 10 mg PO DAILY furosemide 20 mg tablet 20 mg PO QDAY Rx Instructions: Hold for SBP <100 midodrine 5 mg tablet 5 mg PO BID PRN (Reason: hypotension) Rx Instructions: For SBP <100 Print Language: Dominican Instructions: Noncardiac Chest Pain (ED), Pneumonia (ED) Referrals: MARY CANNON DO [Primary Care Provider] - 1 week Discharge Date/Time: 12/08/23 01:31
--- NOTE | 2023-12-07 22:06 | XR_ITS ---
The [address] [address] Patient Name: NAVEED PRADO MRN: [id number] date: 1945 Sex: F Assigned Patient Location: ED.MAIN Current Patient Location: ED.MAIN Accession/Order Number: [id number] Exam Date: 12/07/2023 22:20 Report Date: 12/07/2023 22:54 At the request of: TONJA MARKER Procedure: XR chest 1V CHEST X-RAY HISTORY: Chest pain. COMPARISON: 09/24/2023 chest x-ray TECHNIQUE: 1 views of the chest submitted for review. FINDINGS: Lines/Tubes: None. Costophrenic angles: Blunting of the LEFT costophrenic angle is present. Lungs: The lungs are adequately expanded. Airspace opacities are demonstrated in bilateral lung hall. Heart: Enlarged. Pulmonary Vascularity: Increased. Bones: Osseous structures are within normal limits for age. XR/XR chest 1V IMPRESSION: Airspace opacities in bilateral lungs. Please correlate for pneumonia versus fluid overload.. Electronically authenticated by: PHYLLIS BAILEY Date: 12/07/2023 22:54
[2023-12-07 22:27] LABS: Basophils Percent Auto 0.4 % (0.2-2.0); Eosinophils Absolute Auto 0.2 10^3/uL (0.0-0.7); Eosinophils Percent Auto 1.8 % (0.9-7.0); Hematocrit 33.3 % (36.0-48.0); Hemoglobin 10.1 g/dL (12.0-16.0); Immature Granulocytes Abs Auto 0.07 10^3/uL (0.00-0.03); Immature Granulocytes Pct Auto 0.7 % (0.0-0.5); Lymphocytes Absolute Auto 1.7 10^3/uL (1.2-3.8); Lymphocytes Percent Auto 16.1 % (20.5-60.0); Mean Corpuscular HGB Conc 30.3 g/dL (29.9-35.2); Mean Corpuscular Hemoglobin 28.2 pg (26.7-34.0); Monocytes Absolute Auto 0.6 10^3/uL (0.3-0.8); Neutrophils Absolute Auto 7.8 10^3/uL (1.4-6.5); Platelet Count 322 10^3/uL (150-450); Red Blood Count 3.58 10^6/uL (4.20-5.40); Red Cell Distribution Width 16.7 % (11.0-15.0); White Blood Count 10.5 10^3/uL (4.0-11.0)
[2023-12-07 22:51] LABS: Alanine Aminotransferase 14 U/L (14-59); Albumin Globulin Ratio 0.6; Albumin Level 2.9 g/dL (3.4-5.0); Alkaline Phosphatase 89 U/L (46-116); Anion Gap 5.2; Aspartate Amino Transferase 10 U/L (15-37); BUN Creatinine Ratio 32.6; Bilirubin Total 0.5 mg/dL (0.2-1.0); Calcium 9.7 mg/dL (8.5-10.1); Carbon Dioxide 37.4 mmol/L (21.0-32.0); Chloride 97 mmol/L (98-107); Estimated GFR (African America >60 (>=60); Estimated GFR (Non-African Ame >60 (>=60); Globulin 4.6 g/dL; Glucose 256 mg/dL (74-106); Potassium 4.6 mmol/L (3.5-5.1); Sodium 135 mmol/L (136-145); Total Protein 7.5 g/dL (6.4-8.2)
[2023-12-07 23:18] LABS: Internal Control Within Normal Limits; SARS-CoV-2 Ag NEGATIVE (NEGATIVE)
[2023-12-08] VITALS (9 sets, daily range): BP systolic 101–144; BP diastolic 67–93; PULSE 87–113; O2SAT 95–99
[2023-12-08] MEDS: DOXYCYCLINE HYCLATE 100 MG in 0.9 % SODIUM CHLORIDE 100 ML IV (00:26)
== END 2023-12-08 01:31 | disposition home or self-care (01) ==
PROVIDERS: Emergency Provider Emergency Medicine; PCP Family Medicine
DX: J18.9 Pneumonia, unspecified organism (principal); R07.89 Other chest pain; I48.91 Unspecified atrial fibrillation; Z79.01 Long term (current) use of anticoagulants; J98.4 Other disorders of lung; Z99.81 Dependence on supplemental oxygen
CPT/HCPCS: 36415; 71045; 80053; 83880; 84484; 85025; 87811; 93005; 96365; 99285

== ENCOUNTER 2024-03-30 15:42 | Emergency (ER) | payer MEDICARE, MEDICAID, SELFPAY ==
[2024-03-30 15:46] VITALS: BP 164/69; PULSE 59; TEMP 36.4; O2SAT 99; BMI 40.4
--- NOTE | 2024-03-30 15:49 | ECG_ITS ---
The [facility] Test Date: 2024-03-30 Pat Name: NAVEED PRADO Department: Room: - Gender: Female [employer]: : 1945 Requested By: [id number] Order Number: [id number] Reading MD: RIYA RAMOS Measurements Intervals [place] Rate: 60 P: 46 [place]: 210 QRS: 1 QRSD: 98 T: 90 QT: 328 QTc: 328 Interpretive Statements 102 Sinus arrhythmia 2231 First degree AV block 3613 Cannot rule out inferior myocardial infarction, probably old 8305 Short QTc interval 9150 abnormal ECG Electronically Signed On 03-30-2024 20:59:38 EST by RIYA RAMOS
[2024-03-30 15:50] VITALS: O2SAT 95
--- NOTE | 2024-03-30 16:19 | XR_ITS ---
The [address] [address] Patient Name: NAVEED PRADO MRN: [id number] date: 1945 Sex: F Assigned Patient Location: ER Current Patient Location: ER Accession/Order Number: [id number] Exam Date: 03/30/2024 16:06 Report Date: 03/30/2024 16:34 At the request of: VANE ADAM Procedure: XR shoulder RT min 2V EXAM: XR shoulder RT min 2V HISTORY: pain COMPARISON: None. TECHNIQUE: 2 views of the right shoulder are performed. FINDINGS: The bones are diffusely demineralized. There are degenerative changes at the acromioclavicular and glenohumeral joints. No acute fracture or dislocation. The interstitial markings within the right lung are prominent, question interstitial edema. XR/XR shoulder RT min 2V IMPRESSION: Osteopenia with degenerative changes. No acute bony abnormality. Electronically authenticated by: SAMAN HERNANDES Date: 03/30/2024 16:34
--- NOTE | 2024-03-30 16:19 | XR_ITS ---
The [address] [address] Patient Name: NAVEED PRADO MRN: [id number] date: 1945 Sex: F Assigned Patient Location: ER Current Patient Location: ED.MAIN Accession/Order Number: [id number] Exam Date: 03/30/2024 16:06 Report Date: 03/30/2024 18:18 At the request of: VANE ADAM Procedure: XR chest 1V ONE-VIEW CHEST RADIOGRAPH, 03/30/2024 4:06 PM EST COMPARISON: Chest, 11/26/2023. CLINICAL HISTORY: shoulder pain Findings and impression: 1. Patient is slightly rotated to the left accentuating cardiomediastinal silhouette to the left of midline. 2. Small mildly sized left pleural effusion with partial consolidation of the left lower lung zone likely corresponding to some atelectasis or pneumonitis. 3. Some vague patchy ground glass opacity seen bilaterally may correspond to a component of pulmonary edema though some underlying pneumonitis cannot be excluded. 4. Cardiomegaly. 5. The bones are demineralized. No acute osseous abnormality. Electronically authenticated by: Awais GAYTAN Date: 03/30/2024 18:18
--- NOTE | 2024-03-30 16:19 | CT_ITS ---
The [address] [address] Patient Name: NAVEED PRADO MRN: [id number] date: 1945 Sex: F Assigned Patient Location: ER Current Patient Location: Accession/Order Number: [id number] Exam Date: 03/30/2024 16:06 Report Date: 03/30/2024 16:40 At the request of: VANE ADAM Procedure: CT stroke head/brain wo con EXAMINATION: CT stroke head/brain wo con TECHNIQUE: Axial CT images were obtained through the brain. Sagittal and coronal reformatted images were also obtained. Dose reduction techniques were achieved by using automated exposure control and/or adjustment of mA and/or kV according to patient size and/or use of iterative reconstruction technique. HISTORY: AMS COMPARISON: None. FINDINGS: Intracranial Bleed: No evidence for acute intracranial bleed. Intracranial Mass: No evidence for mass lesion. No mass effect or midline shift. Extra-axial spaces: Moderate Cerebral atrophy and proportional ventricular enlargement. White/[place]es Matter: No acute cortical infarct. Moderate chronic white matter small vessel ischemic change. 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 Skull/Scalp: No evidence for skull fracture or lesion. Orbits and sinuses: The orbits appear unremarkable. The visualized paranasal sinuses are clear. CT/CT stroke head/brain wo con IMPRESSION: No acute intracranial pathology. Electronically authenticated by: CARLOS ATWOOD Date: 03/30/2024 16:40
[2024-03-30 16:32] LABS: Basophils Percent Auto 0.3 % (0.2-2.0); Eosinophils Absolute Auto 0.2 10^3/uL (0.0-0.7); Eosinophils Percent Auto 2.1 % (0.9-7.0); Hematocrit 38.4 % (36.0-48.0); Hemoglobin 11.7 g/dL (12.0-16.0); Immature Granulocytes Abs Auto 0.04 10^3/uL (0.00-0.03); Immature Granulocytes Pct Auto 0.4 % (0.0-0.5); Lymphocytes Absolute Auto 1.6 10^3/uL (1.2-3.8); Lymphocytes Percent Auto 17.5 % (20.5-60.0); Mean Corpuscular HGB Conc 30.5 g/dL (29.9-35.2); Mean Corpuscular Volume 95.3 fL (81.0-99.0); Mean Platelet Volume 8.7 fL (9.5-13.5); Monocytes Absolute Auto 0.6 10^3/uL (0.3-0.8); Monocytes Percent Auto 6.4 % (1.7-12.0); Neutrophils Absolute Auto 6.5 10^3/uL (1.4-6.5); Neutrophils Percent Auto 73.3 % (43.0-75.0); Platelet Count 222 10^3/uL (150-450); Red Blood Count 4.03 10^6/uL (4.20-5.40); Red Cell Distribution Width 15.9 % (11.0-15.0); White Blood Count 8.9 10^3/uL (4.0-11.0)
[2024-03-30 16:53] LABS: Alanine Aminotransferase 12 U/L (14-59); Albumin Globulin Ratio 0.6; Albumin Level 2.9 g/dL (3.4-5.0); Alkaline Phosphatase 82 U/L (46-116); Anion Gap 9.9; Aspartate Amino Transferase 11 U/L (15-37); BUN Creatinine Ratio 19.3; Bilirubin Total 0.3 mg/dL (0.2-1.0); Calcium 9.4 mg/dL (8.5-10.1); Carbon Dioxide 34.5 mmol/L (21.0-32.0); Chloride 101 mmol/L (98-107); Estimated GFR (African America 56 (>=60 mL/min/1.73m^2); Estimated GFR (Non-African Ame 46 (>=60 mL/min/1.73m^2); Globulin 4.7 g/dL; Glucose 219 mg/dL (74-106); Potassium 4.4 mmol/L (3.5-5.1); Sodium 141 mmol/L (136-145); Total Protein 7.6 g/dL (6.4-8.2); Troponin I High Sensitivity 13.5 pg/mL (4.0-51.3)
[2024-03-30 17:58] LABS: Bilirubin Urine NEGATIVE (NEGATIVE); Blood Urine TRACE-INTACT (NEGATIVE); Clarity Urine CLEAR (CLEAR); Color Urine LT YELLOW (YELLOW); Glucose Urine UA NEGATIVE (NEGATIVE); Ketones Urine NEGATIVE (NEGATIVE); Leukocyte Esterase Urine SMALL (NEGATIVE); Nitrite Urine POSITIVE (NEGATIVE); Protein Urine NEGATIVE (NEG/TRACE); Urine Microscopic Indicated YES; Urobilinogen Urine 0.2 EU/dL (0.2-1.0)
[2024-03-30 17:59] LABS: Bacteria Urine LARGE #/HPF (NONE SEEN); Crystals Seen? None Seen #/HPF (None Seen); Mucus Urine NONE SEEN (NONE SEEN); RBC Urine 0-2 #/HPF (0-2); Squamous Epithelial Cell Urine FEW #/LPF (NONE/RARE)
[2024-03-30 18:00] LABS: Cast Seen? NONE SEEN #/LPF (NONE SEEN); Urine Culture Indicated YES
[2024-03-30] MEDS: CIPROFLOXACIN IN 5 % DEXTROSE 400 MG/200 ML PREMIX 200 MG IV (18:06)
--- NOTE | 2024-03-30 18:11 | ED_ITS ---
HPI HPI - General Adult General Chief complaint: Altered Mental Status Stated complaint: confusion Time Seen by Provider: 03/30/24 15:49 Source: patient Mode of arrival: ambulance Limitations: no limitations History of Present Illness HPI narrative: 78-year-old female to the emergency department with chief complaint of altered mental status. Last known normal was yesterday evening. No known falls or injuries. She has been complaining of pain in her left shoulder for several days. She is noted to get urinary tract infections from time to time that cause similar symptoms. No fever, sweats, chills. No nausea or vomiting. She is bedbound at baseline. Related Data Home Medications ?Medication ?Instructions ?Recorded ?Confirmed acetaminophen 500 mg capsule 1,000 mg PO DAILY 09/06/23 03/30/24 atorvastatin 20 mg tablet (Lipitor) 20 mg PO DAILY 09/06/23 12/07/23 calcium 500 mg (as 1 tab PO BID 09/06/23 12/07/23 carbonate)-vitamin D3 10 mcg (400 unit) tablet (Oyster Shell Calcium-Vitamin D3) dextromethorphan 20 mg-quinidine 1 cap PO Q12H 09/06/23 12/07/23 10 mg capsule (Nuedexta) duloxetine 30 mg capsule,delayed 30 mg PO DAILY 09/06/23 03/30/24 release (Cymbalta) ferrous sulfate 325 mg (65 mg 325 mg PO DAILY 09/06/23 03/30/24 iron) tablet (FeroSul) lamotrigine 100 mg tablet 100 mg PO DAILY 09/06/23 03/30/24 (Lamictal) magnesium 200 mg tablet 400 mg PO DAILY 09/06/23 12/07/23 melatonin 10 mg capsule 10 mg PO DAILY 09/06/23 12/07/23 memantine 21 mg capsule 21 mg PO DAILY 09/06/23 12/07/23 sprinkle,extended release 24hr metformin 1,000 mg tablet 1,000 mg PO DAILY 09/06/23 12/07/23 nitroglycerin 0.4 mg sublingual 0.4 mg sublingual Q5M 09/06/23 12/07/23 tablet (Nitrostat) polyethylene glycol 3350 17 17 g PO QDAY constipation 09/06/23 12/07/23 gram/dose oral powder (ClearLax) psyllium husk 0.4 gram capsule 0.4 g PO BID 09/06/23 12/07/23 (Daily Fiber) rivaroxaban 20 mg tablet (Xarelto) 20 mg PO DAILY 09/06/23 12/07/23 spironolactone 50 mg tablet 50 mg PO DAILY 09/06/23 12/07/23 artificial 1 drp ophthalmic (eye) Q12H 09/24/23 12/07/23 tears(ftagrxn-ojzslrfl-rwaomxc) 0.1 %-0.3 %-0.2 % eye drops (GenTeal Tears Moderate) clobetasol 0.05 % topical cream 1 applic topical BID PRN vaginal 09/24/23 03/30/24 irritation famotidine 40 mg tablet (Pepcid) 40 mg PO DAILY 09/24/23 12/07/23 lamotrigine 25 mg tablet 25 mg PO DAILY 09/24/23 03/30/24 linagliptin 5 mg tablet (Tradjenta) 5 mg PO DAILY 09/24/23 12/07/23 furosemide 20 mg tablet 20 mg PO QDAY 10/06/23 03/30/24 midodrine 5 mg tablet 5 mg PO BID PRN hypotension 10/06/23 12/07/23 sotalol 80 mg tablet 80 mg PO Q12H 12/07/23 12/07/23 amiodarone 200 mg tablet 200 mg PO DAILY 03/30/24 03/30/24 Previous Rx's ?Medication ?Instructions ?Recorded ciprofloxacin HCl 250 mg tablet 250 mg PO BID 3 days #6 tabs 03/30/24 (Cipro) Allergies Allergy/AdvReac Type Severity Reaction Status Date / Time aspirin Allergy Unknown Unknown Verified 03/30/24 16:09 fluoxetine (From Prozac) Allergy Unknown Unknown Verified 03/30/24 16:09 hydrochlorothiazide Allergy Unknown Unknown Verified 03/30/24 16:09 Penicillins Allergy Unknown Unknown Verified 03/30/24 16:09 pregabalin (From Lyrica) Allergy Unknown Unknown Verified 03/30/24 16:09 sertraline (From Zoloft) Allergy Unknown Unknown Verified 03/30/24 16:09 Sulfa (Sulfonamide Allergy Unknown Unknown Verified 03/30/24 16:09 Antibiotics) tetanus and diphtheria Allergy Unknown Unknown Verified 03/30/24 16:09 toxoids Opioid HPI Opioid Management Most Recent Opioid Data: No Data to Display Review of Systems ROS Status of ROS 10 or more systems reviewed and unremark able except as noted in history and below Exam Narrative Exam Narrative: VITALS: I have reviewed the triage vital signs. GENERAL: Well developed, well appearing adult in no acute distress. NEURO: Alert and oriented x 3. Mild situational confusion. moves all extremities. Face is symmetric and expressive. EYES: PERRL. No scleral icterus or conjunctival injection. No discharge. HENT: Normocephalic, atraumatic. Hearing is grossly intact. Nares grossly patent and without discharge. Mucous membranes moist. NECK: No JVD. Patient moves neck without restriction. CARDIO: Rhythm regular. Normal rate. No murmur, rub, or gallop. Pulses equal bilaterally in the upper and lower extremity. No lower extremity edema. PULM: Lungs clear to auscultation in all hall. No wheezes, rales, or rhonchi. No conversational dyspnea. No splinting, stridor, or accessory muscle use. GI/: Abdomen is soft and non-tender. Normoactive bowel sounds. EXTREMITIES: Symmetric muscle bulk. No joint swelling. No clubbing, cyanosis, or deformity. SKIN: Warm and dry. Normal turgor. No rash or lesions appreciated. PSYCH: Mood, affect, and interaction is appropriate to the setting. Constitutional Vital Signs, click to edit/add: Last Vital Signs Temp 97.5 F L 03/30/24 15:46 Pulse 59 L 03/30/24 15:46 Resp 24 H 03/30/24 15:46 BP 164/69 H 03/30/24 15:46 Pulse Ox 95 03/30/24 15:50 O2 Del Method Nasal Cannula 03/30/24 15:50 O2 Flow Rate 2 03/30/24 15:50 Course Vital Signs Vital signs: Vital Signs Temperature 97.5 F L 03/30/24 15:46 Pulse Rate 59 L 03/30/24 15:46 Respiratory Rate 24 H 03/30/24 15:46 Blood Pressure 164/69 H 03/30/24 15:46 Pulse Oximetry 99 03/30/24 15:46 Oxygen Delivery Method Nasal Cannula 03/30/24 15:46 Oxygen Delivery Flow Rate 2 03/30/24 15:46 Temperature 97.5 F L 03/30/24 15:46 Pulse Rate 59 L 03/30/24 15:46 Respiratory Rate 24 H 03/30/24 15:46 Blood Pressure 164/69 H 03/30/24 15:46 Pulse Oximetry 95 03/30/24 15:50 Oxygen Delivery Method Nasal Cannula 03/30/24 15:50 Oxygen Delivery Flow Rate 2 03/30/24 15:50 Medical Decision Making MDM Narrative Medical decision making narrative: 78-year-old female to the emergency department with chief complaint of altered mental status. Vital stable, the patient is afebrile. Will obtain imaging of her shoulder, chest, head and basic labs. Urinalysis to be obtained. Lab work reviewed and noted. No major abnormalities. She has a slight increase in her creatinine from baseline. Does not meet definition of BAKARI. Urinalysis concerning for UTI. She has allergies to several antibiotics. Ciprofloxacin most ideal based on her allergy profile and previous cultures. IV Cipro dose was given. Family arrived. Discussed findings with family. They would like patient to return to the [facility]. She will be sent home on oral Cipro. Return precautions were discussed. All questions were answered. The patient was discharged home to her facility. Medical Records Medical records reviewed: Yes I reviewed the patient's medical records Lab Data Lab results reviewed: Yes I reviewed the patient's lab results Labs: Lab Results 03/30/24 03/30/24 03/30/24 Range/Units 16:25 17:27 17:27 WBC 8.9 (4.0-11.0) 10^3/uL RBC 4.03 L (4.20-5.40) 10^6/uL Hgb 11.7 L (12.0-16.0) g/dL Hct 38.4 (36.0-48.0) % MCV 95.3 (81.0-99.0) fL MCH 29.0 (26.7-34.0) pg MCHC 30.5 (29.9-35.2) g/dL RDW 15.9 H (11.0-15.0) % Plt Count 222 (150-450) 10^3/uL MPV 8.7 L (9.5-13.5) fL Neut % (Auto) 73.3 (43.0-75.0) % Lymph % (Auto) 17.5 L (20.5-60.0) % [place] % (Auto) 6.4 (1.7-12.0) % Eos % (Auto) 2.1 (0.9-7.0) % Baso % (Auto) 0.3 (0.2-2.0) % Neut # (Auto) 6.5 (1.4-6.5) 10^3/uL Lymph # (Auto) 1.6 (1.2-3.8) 10^3/uL [place] # (Auto) 0.6 (0.3-0.8) 10^3/uL Eos # (Auto) 0.2 (0.0-0.7) 10^3/uL Baso # (Auto) 0.0 (0.0-0.1) 10^3/uL Abs Immat Gran (auto) 0.04 H (0.00-0.03) 10^3/uL Imm/Tot Granulo (auto) 0.4 (0.0-0.5) % Sodium 141 (136-145) mmol/L Potassium 4.4 (3.5-5.1) mmol/L Chloride 101 (98-107) mmol/L Carbon Dioxide 34.5 H (21.0-32.0) mmol/L Anion Gap 9.9 BUN 22.0 H (7.0-18.0) mg/dL Creatinine 1.14 H (0.55-1.02) mg/dL Est GFR ( Amer) 56 L (>=60 mL/min/1.73m^2) Est GFR (Non-Af Amer) 46 L (>=60 mL/min/1.73m^2) BUN/Creatinine Ratio 19.3 Glucose 219 H (74-106) mg/dL Calcium 9.4 (8.5-10.1) mg/dL Total Bilirubin 0.3 (0.2-1.0) mg/dL AST 11 L (15-37) U/L ALT 12 L (14-59) U/L Alkaline Phosphatase 82 (46-116) U/L Troponin I High Sens 13.5 (4.0-51.3) pg/mL Total Protein 7.6 (6.4-8.2) g/dL Albumin 2.9 L (3.4-5.0) g/dL Globulin 4.7 g/dL Albumin/Globulin Ratio 0.6 Urine Color Lt yellow (YELLOW) Urine Clarity (CLEAR) Urine pH (5.0-9.0) Ur Specific [place] (1.005-1.025) Urine Protein (NEG/TRACE) mg/dL Urine Glucose (UA) (NEGATIVE) mg/dL Urine Ketones (NEGATIVE) mg/dL Urine Occult Blood (NEGATIVE) Urine Nitrite (NEGATIVE) Urine Bilirubin (NEGATIVE) Urine Urobilinogen (0.2-1.0) EU/dL Ur Leukocyte Esterase (NEGATIVE) Urine RBC (0-2) #/HPF Urine WBC (NONE SEEN) #/HPF Ur Squamous Epith Cells (NONE/RARE) #/LPF Urine Crystals (None Seen) #/HPF Urine Bacteria (NONE SEEN) #/HPF Urine Casts (NONE SEEN) #/LPF Urine Mucus (NONE SEEN) Ur Culture Indicated? 03/30/24 03/30/24 03/30/24 Range/Units 17:27 17:27 17:27 WBC (4.0-11.0) 10^3/uL RBC (4.20-5.40) 10^6/uL Hgb (12.0-16.0) g/dL Hct (36.0-48.0) % MCV (81.0-99.0) fL MCH (26.7-34.0) pg MCHC (29.9-35.2) g/dL RDW (11.0-15.0) % Plt Count (150-450) 10^3/uL MPV (9.5-13.5) fL Neut % (Auto) (43.0-75.0) % Lymph % (Auto) (20.5-60.0) % [place] % (Auto) (1.7-12.0) % Eos % (Auto) (0.9-7.0) % Baso % (Auto) (0.2-2.0) % Neut # (Auto) (1.4-6.5) 10^3/uL Lymph # (Auto) (1.2-3.8) 10^3/uL [place] # (Auto) (0.3-0.8) 10^3/uL Eos # (Auto) (0.0-0.7) 10^3/uL Baso # (Auto) (0.0-0.1) 10^3/uL Abs Immat Gran (auto) (0.00-0.03) 10^3/uL Imm/Tot Granulo (auto) (0.0-0.5) % Sodium (136-145) mmol/L Potassium (3.5-5.1) mmol/L Chloride (98-107) mmol/L Carbon Dioxide (21.0-32.0) mmol/L Anion Gap BUN (7.0-18.0) mg/dL Creatinine (0.55-1.02) mg/dL Est GFR ( Amer) (>=60 mL/min/1.73m^2) Est GFR (Non-Af Amer) (>=60 mL/min/1.73m^2) BUN/Creatinine Ratio Glucose (74-106) mg/dL Calcium (8.5-10.1) mg/dL Total Bilirubin (0.2-1.0) mg/dL AST (15-37) U/L ALT (14-59) U/L Alkaline Phosphatase (46-116) U/L Troponin I High Sens (4.0-51.3) pg/mL Total Protein (6.4-8.2) g/dL Albumin (3.4-5.0) g/dL Globulin g/dL Albumin/Globulin Ratio Urine Color (YELLOW) Urine Clarity Clear (CLEAR) Urine pH 6.0 (5.0-9.0) Ur Specific [place] 1.020 (1.005-1.025) Urine Protein (NEG/TRACE) mg/dL Urine Glucose (UA) (NEGATIVE) mg/dL Urine Ketones (NEGATIVE) mg/dL Urine Occult Blood (NEGATIVE) Urine Nitrite (NEGATIVE) Urine Bilirubin (NEGATIVE) Urine Urobilinogen (0.2-1.0) EU/dL Ur Leukocyte Esterase (NEGATIVE) Urine RBC (0-2) #/HPF Urine WBC (NONE SEEN) #/HPF Ur Squamous Epith Cells (NONE/RARE) #/LPF Urine Crystals (None Seen) #/HPF Urine Bacteria (NONE SEEN) #/HPF Urine Casts (NONE SEEN) #/LPF Urine Mucus (NONE SEEN) Ur Culture Indicated? 03/30/24 03/30/24 03/30/24 Range/Units 17:27 17:27 17:27 WBC (4.0-11.0) 10^3/uL RBC (4.20-5.40) 10^6/uL Hgb (12.0-16.0) g/dL Hct (36.0-48.0) % MCV (81.0-99.0) fL MCH (26.7-34.0) pg MCHC (29.9-35.2) g/dL RDW (11.0-15.0) % Plt Count (150-450) 10^3/uL MPV (9.5-13.5) fL Neut % (Auto) (43.0-75.0) % Lymph % (Auto) (20.5-60.0) % [place] % (Auto) (1.7-12.0) % Eos % (Auto) (0.9-7.0) % Baso % (Auto) (0.2-2.0) % Neut # (Auto) (1.4-6.5) 10^3/uL Lymph # (Auto) (1.2-3.8) 10^3/uL [place] # (Auto) (0.3-0.8) 10^3/uL Eos # (Auto) (0.0-0.7) 10^3/uL Baso # (Auto) (0.0-0.1) 10^3/uL Abs Immat Gran (auto) (0.00-0.03) 10^3/uL Imm/Tot Granulo (auto) (0.0-0.5) % Sodium (136-145) mmol/L Potassium (3.5-5.1) mmol/L Chloride (98-107) mmol/L Carbon Dioxide (21.0-32.0) mmol/L Anion Gap BUN (7.0-18.0) mg/dL Creatinine (0.55-1.02) mg/dL Est GFR ( Amer) (>=60 mL/min/1.73m^2) Est GFR (Non-Af Amer) (>=60 mL/min/1.73m^2) BUN/Creatinine Ratio Glucose (74-106) mg/dL Calcium (8.5-10.1) mg/dL Total Bilirubin (0.2-1.0) mg/dL AST (15-37) U/L ALT (14-59) U/L Alkaline Phosphatase (46-116) U/L Troponin I High Sens (4.0-51.3) pg/mL Total Protein (6.4-8.2) g/dL Albumin (3.4-5.0) g/dL Globulin g/dL Albumin/Globulin Ratio Urine Color (YELLOW) Urine Clarity (CLEAR) Urine pH (5.0-9.0) Ur Specific [place] (1.005-1.025) Urine Protein Negative (NEG/TRACE) mg/dL Urine Glucose (UA) Negative (NEGATIVE) mg/dL Urine Ketones Negative (NEGATIVE) mg/dL Urine Occult Blood (NEGATIVE) Urine Nitrite (NEGATIVE) Urine Bilirubin (NEGATIVE) Urine Urobilinogen (0.2-1.0) EU/dL Ur Leukocyte Esterase (NEGATIVE) Urine RBC (0-2) #/HPF Urine WBC (NONE SEEN) #/HPF Ur Squamous Epith Cells (NONE/RARE) #/LPF Urine Crystals (None Seen) #/HPF Urine Bacteria (NONE SEEN) #/HPF Urine Casts (NONE SEEN) #/LPF Urine Mucus (NONE SEEN) Ur Culture Indicated? 03/30/24 03/30/24 03/30/24 Range/Units 17:27 17:27 17:27 WBC (4.0-11.0) 10^3/uL RBC (4.20-5.40) 10^6/uL Hgb (12.0-16.0) g/dL Hct (36.0-48.0) % MCV (81.0-99.0) fL MCH (26.7-34.0) pg MCHC (29.9-35.2) g/dL RDW (11.0-15.0) % Plt Count (150-450) 10^3/uL MPV (9.5-13.5) fL Neut % (Auto) (43.0-75.0) % Lymph % (Auto) (20.5-60.0) % [place] % (Auto) (1.7-12.0) % Eos % (Auto) (0.9-7.0) % Baso % (Auto) (0.2-2.0) % Neut # (Auto) (1.4-6.5) 10^3/uL Lymph # (Auto) (1.2-3.8) 10^3/uL [place] # (Auto) (0.3-0.8) 10^3/uL Eos # (Auto) (0.0-0.7) 10^3/uL Baso # (Auto) (0.0-0.1) 10^3/uL Abs Immat Gran (auto) (0.00-0.03) 10^3/uL Imm/Tot Granulo (auto) (0.0-0.5) % Sodium (136-145) mmol/L Potassium (3.5-5.1) mmol/L Chloride (98-107) mmol/L Carbon Dioxide (21.0-32.0) mmol/L Anion Gap BUN (7.0-18.0) mg/dL Creatinine (0.55-1.02) mg/dL Est GFR ( Amer) (>=60 mL/min/1.73m^2) Est GFR (Non-Af Amer) (>=60 mL/min/1.73m^2) BUN/Creatinine Ratio Glucose (74-106) mg/dL Calcium (8.5-10.1) mg/dL Total Bilirubin (0.2-1.0) mg/dL AST (15-37) U/L ALT (14-59) U/L Alkaline Phosphatase (46-116) U/L Troponin I High Sens (4.0-51.3) pg/mL Total Protein (6.4-8.2) g/dL Albumin (3.4-5.0) g/dL Globulin g/dL Albumin/Globulin Ratio Urine Color (YELLOW) Urine Clarity (CLEAR) Urine pH (5.0-9.0) Ur Specific [place] (1.005-1.025) Urine Protein (NEG/TRACE) mg/dL Urine Glucose (UA) (NEGATIVE) mg/dL Urine Ketones (NEGATIVE) mg/dL Urine Occult Blood Trace-intact A (NEGATIVE) Urine Nitrite Positive A (NEGATIVE) Urine Bilirubin Negative (NEGATIVE) Urine Urobilinogen (0.2-1.0) EU/dL Ur Leukocyte Esterase (NEGATIVE) Urine RBC (0-2) #/HPF Urine WBC (NONE SEEN) #/HPF Ur Squamous Epith Cells (NONE/RARE) #/LPF Urine Crystals (None Seen) #/HPF Urine Bacteria (NONE SEEN) #/HPF Urine Casts (NONE SEEN) #/LPF Urine Mucus (NONE SEEN) Ur Culture Indicated? 03/30/24 03/30/24 Range/Units 17:27 17:27 WBC (4.0-11.0) 10^3/uL RBC (4.20-5.40) 10^6/uL Hgb (12.0-16.0) g/dL Hct (36.0-48.0) % MCV (81.0-99.0) fL MCH (26.7-34.0) pg MCHC (29.9-35.2) g/dL RDW (11.0-15.0) % Plt Count (150-450) 10^3/uL MPV (9.5-13.5) fL Neut % (Auto) (43.0-75.0) % Lymph % (Auto) (20.5-60.0) % [place] % (Auto) (1.7-12.0) % Eos % (Auto) (0.9-7.0) % Baso % (Auto) (0.2-2.0) % Neut # (Auto) (1.4-6.5) 10^3/uL Lymph # (Auto) (1.2-3.8) 10^3/uL [place] # (Auto) (0.3-0.8) 10^3/uL Eos # (Auto) (0.0-0.7) 10^3/uL Baso # (Auto) (0.0-0.1) 10^3/uL Abs Immat Gran (auto) (0.00-0.03) 10^3/uL Imm/Tot Granulo (auto) (0.0-0.5) % Sodium (136-145) mmol/L Potassium (3.5-5.1) mmol/L Chloride (98-107) mmol/L Carbon Dioxide (21.0-32.0) mmol/L Anion Gap BUN (7.0-18.0) mg/dL Creatinine (0.55-1.02) mg/dL Est GFR ( Amer) (>=60 mL/min/1.73m^2) Est GFR (Non-Af Amer) (>=60 mL/min/1.73m^2) BUN/Creatinine Ratio Glucose (74-106) mg/dL Calcium (8.5-10.1) mg/dL Total Bilirubin (0.2-1.0) mg/dL AST (15-37) U/L ALT (14-59) U/L Alkaline Phosphatase (46-116) U/L Troponin I High Sens (4.0-51.3) pg/mL Total Protein (6.4-8.2) g/dL Albumin (3.4-5.0) g/dL Globulin g/dL Albumin/Globulin Ratio Urine Color (YELLOW) Urine Clarity (CLEAR) Urine pH (5.0-9.0) Ur Specific [place] (1.005-1.025) Urine Protein (NEG/TRACE) mg/dL Urine Glucose (UA) (NEGATIVE) mg/dL Urine Ketones (NEGATIVE) mg/dL Urine Occult Blood (NEGATIVE) Urine Nitrite (NEGATIVE) Urine Bilirubin (NEGATIVE) Urine Urobilinogen 0.2 (0.2-1.0) EU/dL Ur Leukocyte Esterase Small A (NEGATIVE) Urine RBC 0-2 (0-2) #/HPF Urine WBC 10-20 A (NONE SEEN) #/HPF Ur Squamous Epith Cells Few A (NONE/RARE) #/LPF Urine Crystals None seen (None Seen) #/HPF Urine Bacteria Large A (NONE SEEN) #/HPF Urine Casts None seen (NONE SEEN) #/LPF Urine Mucus None seen (NONE SEEN) Ur Culture Indicated? Yes Imaging Data CT scan - head: Attestation: I have reviewed the pertinent imaging results. Radiologist's impression: ITS Impressions Brain CT 03/30/24 16:19 IMPRESSION: No acute intracranial pathology. Electronically authenticated by: CARLOS ATWOOD Date: 03/30/2024 16:40 Shoulder X-Ray 03/30/24 16:19 IMPRESSION: Osteopenia with degenerative changes. No acute bony abnormality. Electronically authenticated by: SAMAN HERNANDES Date: 03/30/2024 16:34 ECG Data Attestation: I personally reviewed and interpreted this ECG as follows: (Normal sinus rhythm at a rate of 60. No STEMI. Short QTc. ) Discharge Plan Discharge Chief Complaint: Altered Mental Status Clinical Impression: Acute UTI (urinary tract infection), Acute metabolic encephalopathy Patient Disposition: Home, Self-Care Time of Disposition Decision: 18:19 Condition: Good Mode of Transportation: EMS Prescriptions / Home Meds: New ciprofloxacin HCl [Cipro] 250 mg tablet 250 mg PO BID 3 Days Qty: 6 0RF No Action clobetasol 0.05 % cream 1 applic TOPICAL BID PRN (Reason: vaginal irritation) lamotrigine 25 mg tablet 25 mg PO DAILY artificial tear([id number]) [GenTeal Tears Moderate] 0.1-0.3-0.2 % drops 1 drp OPHTHALMIC (EYE) Q12H famotidine [Pepcid] 40 mg tablet 40 mg PO DAILY Tradjenta 5 mg tablet 5 mg PO DAILY sotalol 80 mg tablet 80 mg PO Q12H acetaminophen 500 mg capsule 1,000 mg PO DAILY ferrous sulfate [FeroSul] 325 mg (65 mg iron) tablet 325 mg PO DAILY lamotrigine [Lamictal] 100 mg tablet 100 mg PO DAILY atorvastatin [Lipitor] 20 mg tablet 20 mg PO DAILY magnesium 200 mg tablet 400 mg PO DAILY metformin 1,000 mg tablet 1,000 mg PO DAILY calcium carbonate-vitamin D3 [Oyster Shell Calcium-Vit D3] 500 mg-10 mcg (400 unit) tablet 1 tab PO BID Xarelto 20 mg tablet 20 mg PO DAILY Rx Instructions: must administer with evening meal psyllium husk [Daily Fiber] 0.4 gram capsule 0.4 g PO BID memantine 21 mg capsule,sprinkle,ER 24hr 21 mg PO DAILY spironolactone 50 mg tablet 50 mg PO DAILY polyethylene glycol 3350 [ClearLax] 17 gram/dose powder 17 g PO QDAY nitroglycerin [Nitrostat] 0.4 mg tablet, sublingual 0.4 mg sublingual Q5M Rx Instructions: do not exceed 3 doses per episode Nuedexta 20-10 mg capsule 1 cap PO Q12H duloxetine [Cymbalta] 30 mg capsule,delayed release(DR/EC) 30 mg PO DAILY melatonin 10 mg capsule 10 mg PO DAILY furosemide 20 mg tablet 20 mg PO QDAY Rx Instructions: Hold for SBP <100 midodrine 5 mg tablet 5 mg PO BID PRN (Reason: hypotension) Rx Instructions: For SBP <100 amiodarone 200 mg tablet 200 mg PO DAILY Print Language: Latvian Instructions: Urinary Tract Infection in Older Adults (ED) Additional Instructions: Call the office of your primary care doctor to arrange for follow-up within the above-stated timeframe. Your ED visit was focused on your acute issue and does not replace primary care. You should review your labs, imaging, and diagnoses from this ED visit with your primary care physician. There may be non-emergent/ incidental findings that need further evaluation. You should review your vital signs including blood pressure with your PCP. If you were prescribed medications you should discuss possible side-effects and drug interactions with your pharmacist. Call 911 or go to the nearest Emergency Department if you develop any new or worsening symptoms. Increase fluid intake. Discussed with primary care doctor repeat renal function testing in 1 week to ensure that her kidney function has returned to baseline. Referrals: MARY CANNON, DO [Primary Care Provider] - 1 week
[2024-03-30] MEDS: 0.9 % SODIUM CHLORIDE 500 ML IV (18:43)
--- NOTE | 2024-03-30 19:33 | PC.NURSE ---
i walked into this patient's room to find this patient awake and alert sitting upright on the bed. this patient is talking to family members at this time. again i informed this patient and her family members that now we are waiting on transportation to arrive around 11:30 pm tonight to take this patient back. this patient nor family members voices no concerns and this patient shows no signs of distress
--- NOTE | 2024-03-30 21:33 | PC.NURSE ---
this patient awake and alert eating crackers
--- NOTE | 2024-03-31 00:22 | PC.NURSE ---
this patient reposition and brief change also
--- NOTE | 2024-03-31 01:08 | PC.NURSE ---
i called Apol[facility] at [facility] [phone] and spoke with aMrina with patient's report. [facility] here and i gave them all of the patient's paper work this patient is awake and alert, and voices no concerns and shows no signs distress at this time
[2024-04-02 13:17] LABS: BOX Test Reference Lab FIRELANDS
--- NOTE | 2024-04-04 13:38 | PC.NURSE ---
Urine culture completed and reviewed by Mariah WHITLEY. patient already placed on Cipro and no change in treatment needed.
== END 2024-03-31 01:11 | disposition home or self-care (01) ==
PROVIDERS: Physician Assistant; Emergency Provider Student in an Organized Health Care Education/Training Program; PCP Family Medicine
DX: N39.0 Urinary tract infection, site not specified (principal); G93.41 Metabolic encephalopathy; M25.512 Pain in left shoulder; M85.812 Other specified disorders of bone density and structure, left shoulder; Z87.440 Personal history of urinary (tract) infections; Z74.01 Bed confinement status
CPT/HCPCS: 36415; 70450; 71045; 73030; 80053; 81001; 84484; 85025; 87086; 87150; 87186; 93005; 96365; 99285; J0744

== ENCOUNTER 2024-09-07 19:07 | Inpatient (IN) | payer MEDICARE, MEDICAID, SELFPAY ==
[2024-09-07] VITALS (11 sets, daily range): BP systolic 108–156; BP diastolic 47–103; PULSE 67–74; TEMP 37–38.9; O2SAT 86–93
--- NOTE | 2024-09-07 19:12 | CT_ITS ---
The [address] [address] Patient Name: NAVEED PRADO MRN: [id number] date: 1945 Sex: F Assigned Patient Location: ED.MAIN Current Patient Location: Accession/Order Number: [id number] Exam Date: 09/07/2024 21:49 Report Date: 09/07/2024 22:02 At the request of: SKYLAR FLORES DO Procedure: CT angio neck CT angio head, CT angio neck 09/07/2024 9:14 PM SIGNS AND SYMPTOMS: Altered mental status TECHNIQUE: Multi-detector CT angiography axial slices of the head and neck were obtained during intravenous administration of IV contrast material. Sagittal, coronal, and 3-D reconstructions were performed and viewed on a separate workstation. CT was performed with one or more of the following dose reduction techniques: Automated exposure control, adjustment of the mA and/or kV according to patient size, or use of iterative reconstruction technique. Stenoses were measured using the NASCET criteria. COMPARISON: None. FINDINGS: CTA HEAD: The superior cerebellar arteries, posterior inferior cerebellar arteries, and the basilar artery are within normal limits. The posterior cerebral arteries are unremarkable. Atherosclerotic changes are noted in the intracranial segments of the internal carotid arteries with mild to moderate multifocal narrowing greatest in the supraclinoid segments bilaterally. The A1 segment of the right anterior cerebral artery is hypoplastic which is a normal variant There are normal anterior and middle cerebral arteries. Anterior communicating artery is patent. Posterior communicating arteries are present. The deep venous system and dural venous systems appear to be patent. No bony abnormalities are appreciated. CTA NECK: Atherosclerotic changes are noted in the aortic arch and origins of the great vessels. There is a normal three-vessel arch configuration. Calcified plaque is noted in the subclavian arteries with at least moderate stenosis bilaterally. Calcified plaque is noted in the origins of the vertebral arteries with severe stenosis bilaterally. Calcified plaque is noted in the V2 segments of the vertebral arteries bilaterally with mild to moderate stenosis. Calcified plaque is noted in the carotid bifurcations with 75% narrowing of the proximal right internal carotid artery and 80% narrowing of the proximal left internal carotid artery. Airspace opacities are noted in the upper lobes bilaterally with a moderate to large left-sided pleural effusion. Prominent mediastinal lymph nodes are present measuring up to 1.4 cm in short axis. These may be reactive in nature. No acute bony abnormalities are identified. Degenerative changes are noted throughout the cervical spine. The paraspinous soft tissues are within normal limits. CT/CT angio neck IMPRESSION: No evidence of aneurysmal dilatation, dissection or occlusion. Calcified plaque is noted in the carotid bifurcations with 75% narrowing of the proximal right internal carotid artery and 80% narrowing of the proximal left internal carotid artery. Calcified plaque is noted in the origins of the vertebral arteries contributing to severe stenosis bilaterally. Calcified plaque is noted in the proximal subclavian arteries bilaterally contributing to moderate stenosis bilaterally. Calcified plaques noted in the intracranial segments of the internal carotid arteries with mild to moderate multifocal narrowing greatest in the supraclinoid segments bilaterally. Bilateral airspace opacities are noted with a moderate to large left-sided pleural effusion. Impression dictated by: Pradeep Tellez M.D. 09/07/2024 10:02 PM Dictation Location: [place] [address] Electronically authenticated by: [id number] Y Date: 09/07/2024 22:02
--- NOTE | 2024-09-07 19:12 | XR_ITS ---
The [place] [id number] Patient Name: NAVEED PRADO MRN: [id number] date: 1945 Sex: F Assigned Patient Location: ED.MAIN Current Patient Location: ED.MAIN Accession/Order Number: [id number] Exam Date: 09/07/2024 19:46 Report Date: 09/07/2024 19:47 At the request of: SKYLAR FLORES DO Procedure: XR chest 1V XR chest 1V 09/07/2024 7:36 PM SIGNS AND SYMPTOMS: ^altered ^Y PROTOCOL: Frontal radiograph chest COMPARISON: 03/30/2024 FINDINGS: The trachea is midline. Atherosclerotic changes are noted in the thoracic aorta. The heart and mediastinal structures are within normal limits. Basilar airspace opacities are noted left greater than right, worse when compared to the prior exam. There is a left-sided pleural effusion. There is significant prominence. Degenerative changes are noted in the shoulders and thoracic spine. The bony thorax is intact. XR/XR chest 1V IMPRESSION: Basilar airspace opacities are noted left greater than right, worse when compared to the prior exam. There is a left-sided pleural effusion. Impression dictated by: Pradeep Tellez M.D. 09/07/2024 7:47 PM Dictation Location: [place] [address] Electronically authenticated by: [id number] Y Date: 09/07/2024 19:47
--- NOTE | 2024-09-07 19:12 | CT_ITS ---
The [address] [address] Patient Name: NAVEED PRADO MRN: [id number] date: 1945 Sex: F Assigned Patient Location: ED.MAIN Current Patient Location: Accession/Order Number: [id number] Exam Date: 09/07/2024 21:49 Report Date: 09/07/2024 22:02 At the request of: SKYLAR FLORES DO Procedure: CT angio neck CT angio head, CT angio neck 09/07/2024 9:14 PM SIGNS AND SYMPTOMS: Altered mental status TECHNIQUE: Multi-detector CT angiography axial slices of the head and neck were obtained during intravenous administration of IV contrast material. Sagittal, coronal, and 3-D reconstructions were performed and viewed on a separate workstation. CT was performed with one or more of the following dose reduction techniques: Automated exposure control, adjustment of the mA and/or kV according to patient size, or use of iterative reconstruction technique. Stenoses were measured using the NASCET criteria. COMPARISON: None. FINDINGS: CTA HEAD: The superior cerebellar arteries, posterior inferior cerebellar arteries, and the basilar artery are within normal limits. The posterior cerebral arteries are unremarkable. Atherosclerotic changes are noted in the intracranial segments of the internal carotid arteries with mild to moderate multifocal narrowing greatest in the supraclinoid segments bilaterally. The A1 segment of the right anterior cerebral artery is hypoplastic which is a normal variant There are normal anterior and middle cerebral arteries. Anterior communicating artery is patent. Posterior communicating arteries are present. The deep venous system and dural venous systems appear to be patent. No bony abnormalities are appreciated. CTA NECK: Atherosclerotic changes are noted in the aortic arch and origins of the great vessels. There is a normal three-vessel arch configuration. Calcified plaque is noted in the subclavian arteries with at least moderate stenosis bilaterally. Calcified plaque is noted in the origins of the vertebral arteries with severe stenosis bilaterally. Calcified plaque is noted in the V2 segments of the vertebral arteries bilaterally with mild to moderate stenosis. Calcified plaque is noted in the carotid bifurcations with 75% narrowing of the proximal right internal carotid artery and 80% narrowing of the proximal left internal carotid artery. Airspace opacities are noted in the upper lobes bilaterally with a moderate to large left-sided pleural effusion. Prominent mediastinal lymph nodes are present measuring up to 1.4 cm in short axis. These may be reactive in nature. No acute bony abnormalities are identified. Degenerative changes are noted throughout the cervical spine. The paraspinous soft tissues are within normal limits. CT/CT angio head IMPRESSION: No evidence of aneurysmal dilatation, dissection or occlusion. Calcified plaque is noted in the carotid bifurcations with 75% narrowing of the proximal right internal carotid artery and 80% narrowing of the proximal left internal carotid artery. Calcified plaque is noted in the origins of the vertebral arteries contributing to severe stenosis bilaterally. Calcified plaque is noted in the proximal subclavian arteries bilaterally contributing to moderate stenosis bilaterally. Calcified plaques noted in the intracranial segments of the internal carotid arteries with mild to moderate multifocal narrowing greatest in the supraclinoid segments bilaterally. Bilateral airspace opacities are noted with a moderate to large left-sided pleural effusion. Impression dictated by: Pradeep Tellez M.D. 09/07/2024 10:02 PM Dictation Location: [place] [address] Electronically authenticated by: [id number] Y Date: 09/07/2024 22:02
--- NOTE | 2024-09-07 19:12 | ECG_ITS ---
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 Measurements Intervals [place] Rate: 72 P: 90 NH: 228 QRS: 68 QRSD: 116 T: -6 QT: 402 QTc: 426 Interpretive Statements 1100 Sinus rhythm 2231 First degree AV block 3113 Cannot rule out anterior myocardial infarction, probably old 9150 abnormal ECG Compared to ECG 03/30/2024 15:49:25 Sinus arrhythmia no longer present Myocardial infarct finding still present Electronically Signed On 09-08-2024 19:26:57 EDT by GUANAKO DIA M.D.
--- NOTE | 2024-09-07 19:12 | CT_ITS ---
The [address] [address] Patient Name: NAVEED PRADO MRN: [id number] date: 1945 Sex: F Assigned Patient Location: ED.MAIN Current Patient Location: ED.MAIN Accession/Order Number: [id number] Exam Date: 09/07/2024 19:42 Report Date: 09/07/2024 19:46 At the request of: SKYLAR FLORES DO Procedure: CT stroke head/brain wo con CT stroke head/brain wo con 09/07/2024 7:37 PM SIGNS AND SYMPTOMS: Altered mental status, unresponsiveness, speech difficulties TECHNIQUE:Multi-detector CT axial slices of the brain were obtained without IV contrast. CT was performed with one or more of the following dose reduction techniques: Automated exposure control, adjustment of the mA and/or kV according to patient size, or use of iterative reconstruction technique. COMPARISON: 03/30/2024. FINDINGS: There is no shift of the midline structures, acute intracranial bleeding, mass effects, or evidence of acute ischemia. There is age-related cortical atrophy with periventricular white matter hypoattenuation. Atherosclerotic changes are noted in the V4 segments of the vertebral arteries, basilar artery, and intravenous segments of the carotid arteries. Encephalomalacia is noted within the anterior aspect of the medulla. There is gliosis and encephalomalacia in the right axilla consistent with a remote infarct. The ventricular system is normal in size. The cerebellum is atrophic. . Mild mucosal thickening is noted in the right maxillary sinus. The visualized intraorbital contents and the infratemporal soft tissues show no acute abnormality. The osseous structures in the skull base and the calvarium show no abnormality. CT/CT stroke head/brain wo con IMPRESSION: Remote infarcts are noted as There is no CT evidence of acute to subacute ischemia. If there is ongoing clinical concern, further evaluation with MRI may be helpful. 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 Impression dictated by: Pradeep Tellez M.D. 09/07/2024 7:46 PM Dictation Location: [place] [address] Electronically authenticated by: [id number] Y Date: 09/07/2024 19:46
--- OUTSIDE RECORDS SUMMARY | 2024-09-07 19:17 | XMS_ITS | CCD ---
Author Organization [facility] Care Team Providers Care Electric Needle Specialist Name Role Phone FLORIN, DR PRESTON Attending Unavailable FLORIN, DR PRESTON Admitting Unavailable FLORIN, DR PRESTON Consulting Unavailable VALONE, DR MUÑIZ Primary Care Unavailable YUE, DR ZENON Loya Consulting Unavailable ZISHAUNNA, DR BRITTANY Wallace Consulting Unavailable CIARA SORIA Consulting Unavailable MILLICENT ESPINAL Consulting Unavailable IDANIA CUEVAS Consulting Unavailable KOBI TOMAS Consulting Unavailable KARSTEN MUJICA Consulting Unavailable ANUSHKA FLANAGAN Consulting Unavailable DEREK MAJOR Primary Care Unavailable CATHRYN ORANTES Admitting Unavailable LUIS COOK Attending Unavailable REX ATKINSON Consulting Unavailable CATHRYN ORANTES Consulting Unavailable BOBBI JENSEN Consulting Unavailable SELIN SZYMANSKI Consulting Unavailgodfrey e Unavailable Primary Care Provider Unavailgodfrey Peters MD, Christiano [place] Primary Care Provider Mariah Prado PA-C Attending Provider [phone] Mariah Prado Attending Unavailable Mariah Prado Admitting Unavailable Derek Major DO Primary Care Provider CIARAN PABON Referring Unavailable CIARAN PABON Admitting Unavailable CIARAN PABON Attending Unavailable CIARAN PABON Attending Unavailable KAYLAH SIMMONS Attending Unavailable CIARAN PABON Attending Unavailable CIARAN PABON Referring Unavailable SEVERO MILTON Attending Unavailable SEVERO MILTON Referring Unavailable SEVERO MILTON Attending Unavailable SEVERO MILTON Attending Unavailable SEVERO MILTON Attending Unavailable SEVERO MILTON Attending Unavailable Allergies Allergy Classification Reported Allergen(s) Allergy Type Date of Onset Reaction(s) Facility (1 source) Allopurinol Drug Allergy 014 [facility] Repository (2 sources) Aspirin; Translations: [ASPIRIN] Drug Allergy 006 [facility] (1 source) buPROPion Drug Allergy [facility] (1 source) DULoxetine Drug Allergy [facility] (1 source) FLUoxetine Drug Allergy [facility] (2 sources) hydroCHLOROthiazide; Translations: [HYDROCHLOROTHIAZIDE] Drug Allergy [facility] (1 source) lamoTRIgine Drug Allergy [facility] (2 sources) Penicillins; Translations: [PENICILLINS] Drug allergy (disorder) [facility] (1 source) pregabalin Drug Allergy [facility] (1 source) Sertraline Drug Allergy [facility] (1 source) Sulfonamides (Antibiotic) Drug allergy (disorder) [facility] (13 sources) Aluminum aspirin Drug Allergy GI intolerance [facility] Healthcare (14 sources) FLUoxetine; Translations: [FLUOXETINE] Drug Allergy Unknown [facility] Healthcare (13 sources) hydroCHLOROthiazide Drug Allergy Hives [facility] Healthcare (13 sources) Penicillins Drug Intolerance [facility] (14 sources) Pregabalin; Translations: [PREGABALIN] Propensity to adverse reactions [facility] (14 sources) Sertraline; Translations: [SERTRALINE] Drug Allergy Unknown [facility] Healthcare (14 sources) Sulfonamides (Antibiotic) Drug Intolerance Unknown [facility] (1 source) Tetanus vaccine Propensity to adverse reactions to drug [facility] (1 source) Sulfonamides (Antibiotic); Translations: [SULFA (SULFONAMIDE ANTIBIOTICS)] Propensity to adverse reactions to drug (disorder) [facility] Repository (1 source) TETANUS VACCINES AND TOXOID; Translations: [TETANUS VACCINES AND TOXOID] Propensity to adverse reactions to drug (disorder) [facility] Repository Medications Current Medications Medication Drug Class(es) Dates Sig (Normalized) Sig (Original) Acetaminophen (2 sources) Start: 09-06-2023 acetaminophen (TYLENOL) tablet 650 mg take 2 tablets by mouth once suni ly acetaminophen (TYLENOL) 500 MG tablet Take 2 tablets by mouth daily 0 Active atorvastatin 20 mg oral tablet (15 sources) HMG-CoA Reductase Inhibitor Start: 07-08-2023 take 1 tablet by mouth in the morning atorvastatin (Lipitor) 20 MG tablet Take 1 tablet by mouth in the morning. 07/08/2023 Active bacitracin 0.5 unt/mg / neomycin 0.0035 mg/mg / polymyxin b 10 unt/mg topical ointment (1 source) Aminoglycoside Antibacterial, Polymyxin-class Antibacterial Start: 09-08-2023 neomycin-bacitraci n-polymyxin (NEOSPORIN) ointment bisacodyl 10 mg rectal suppository (1 source) Stimulant Laxative Start: 09-08-2023 bisacodyl (DULCOLAX) suppository 10 mg clobetasol propionate 0.5 mg/ml topical cream (1 source) Corticosteroid clobetasol (TEMOVATE) 0.05 % cream Apply topically 2 times daily Apply topically 2 times daily post shower and for vaginal itching PRN 0 Active dextran 70 1 mg/ml / glycerin 2 mg/ml / hypromellose 3 mg/ml ophthalmic solution (1 source) Plasma Volume Knifeman, Non-Standardized Chemical Allergen take 1 drop(s) into the eye(s) twice daily Artificial Tear Solution (GENTEAL TEARS) 0.1-0.2-0.3 % SOLN Place 1 drop into both eyes 2 times daily 0 Active digoxin 0.125 mg oral tablet (14 sources) Cardiac Glycoside End: 09-08-2023 take 1 tablet by mouth every twenty-four hours as needed digoxin (Lanoxin) 125 MCG tablet Take 125 mcg by mouth Daily as needed Active DULoxetine 30 mg delayed release oral capsule (15 sources) Serotonin and Norepinephrine Reuptake Inhibitor Start: 09-07-2023 DULoxetine (CYMBALTA) extended release capsule 30 mg famotidine 20 mg oral tablet (15 sources) Histamine-2 Receptor Antagonist Start: 09-07-2023 famotidine (PEPCID) tablet 40 mg take 1 tablet by mouth at bedtim e famotidine (Pepcid) 40 MG tablet Take 1 tablet by mouth at bedtime Active ferrous sulfate 325 mg delay ed release oral tablet (15 sources) Start: 09-07-2023 ferrous sulfat e (FE TABS 325) EC tablet 325 mg ferrous sulfate 325 (65 Fe) MG EC tablet Take 325 mg by mouth Active take 1 tablet by zion th once daily at breakfast ferrous sulfate (FE TABS 325) 325 (65 Fe) MG EC tablet Take 1 tablet by mouth daily (with breakfast) 0 Active furosemide 20 mg oral tablet (16 sources) Loop Diuretic Start: 09-09-2023 take 1 tablet by mouth in the morning furosemide (Lasix) 20 MG tablet Take 1 tablet by mouth in the morning. 09/10/2023 Active Start: 09-07-2023 End: 09-08-2023 furosemide (LASIX) injection 20 mg glucagon (rdna) 1 mg injection (1 source) Antihypoglycemic Agent Start: 09-06-2023 glucago n injection 1 mg 1000 ml glucose 100 mg/ml injection (3 sources) Start: 09-06-2023 dextrose 10 % infusion Start: 09-06-2023 dextrose bolus 10% 125 mL Start: 09-06-2023 glucose chewab le tablet 16 g insulin lispro 100 unt/ml injectable solution (2 sources) Insulin Analog Start: 09-06-2023 insulin lispro (HUMALOG,ADMELOG) injection vial 0-4 Units lamoTRIgine 25 mg oral tablet (17 sources) Mood Stabilizer, Anti-epileptic Agent Start: 09-08-2023 lamoTRIgine (LAMICTA L) tablet 25 mg Start: 09-07-2023 lamoTRIgine (L AMICTAL) tablet 100 mg take 5 tablets by mo [facility] in the morning lamoTRIgine (LaMICtal) 25 MG tablet Take 125 mg by mouth in the morning. Active linagliptin 5 mg oral tablet (13 sources) Dipeptidyl Peptidase 4 Inhibitor take 1 tablet by mouth in the morning linaGLIPtin (Tradjenta) 5 MG tablet Take 5 mg by mouth in the morning. Active Magnesium (2 sources) take 1 tablet by mouth once daily Magnesium 400 MG TABS Take 1 tablet by mouth daily 0 Active End: 09-07-2023 take 1 tablet by mouth twice daily magnesium 200 MG TABS tablet Take 1 tablet by mouth 2 times daily 0 09/07/2023 Discontinued (LIST CLEANUP) magnesium oxide 400 mg oral tablet (13 sources) take 1 tablet by mouth in the morning magnesium oxide (Mag-Ox) 400 MG tablet Take 1 tablet by mouth in the morning. Active 50 ml magnesium sulfate 40 mg/ml injection (1 source) Start: 09-06-2023 2,000 mg, IntraVENous, at 25 mL/hr, Administer over 2 Hours, PRN, Other, Magnesium Replacement, Starting on Wed09/06/23 at 1946 Mag Lab Replacement Action 1.4-1.6 mg/dL &nbs p; 2,000 mg Total Dose Given as 1,000 mg IVPB x 2 doses or 2,000 mg IVPB x 1 dose &nb sp; &nbs p; &nbsp ; 1.0-1.3 mg/dL 4,000 mg Total Dose &nb sp; &nbs p; &nbsp ; Given as 1,000 mg IVPB x 4 doses or 2,000 mg IVPB x 2 doses Less than 1.0 mg/dL CALL PHYSICIAN and give &nb sp; &nbs p; &nbsp ; 4,000 mg Total Dose &nb sp; &nbs p; &nbsp ; Given as 1,000 mg IVPB x 4 doses or 2,000 mg IVPB x 2 doses In fuse at 1,000 mg/hr Repeat Mag level 1 hour after final administration Sabina col not for use in Patients with CrCl less than 30ml/min melatonin 3 mg oral tablet (14 sources) Start: 12-06-2023 melatonin 3 MG tablet 12/06/2023 Active take 1 tablet by mouth once tasneem y Melatonin 10 MG TABS Indications: Insomnia Take 1 tablet by mouth daily Indications: Trouble Sleeping 0 Active metFORMIN hydrochloride 1000 mg oral tablet (15 sources) Biguanide take 1 tablet by mouth at bedtime metFORMIN (Glucophage) 1000 MG tablet Take 1 tablet by mouth at bedtime Active End: 09-09-2023 take 1 tablet by mouth twice daily at mealtime metFORMIN (GLUCOPHAGE) 500 MG tablet Take 1 tablet by mouth 2 times daily (with meals) With 1000mg nightly to total 2000mg per day 0 09/09/2023 Discontinued (Stop Taking at Discharge) metoprolol tartrate 25 mg oral tablet (3 sources) beta-Adrenergic Shanti Start: 09-09-2023 metopr olol tartrate (LOPRESSOR) tablet 25 mg Start: 09-08-2023 End: 09-09-2023 metoprolol tartrate (LOPRESS OR) tablet 12.5 mg take 1 tablet by zion th twice daily metoprolol tartrate (LOPRESSOR) 50 MG tablet Take 1 tablet by mouth 2 times daily 0 Active midodrine hydrochloride 5 mg oral tablet (13 sources) alpha-Adrenergic Agonist take 1 tablet by mouth three times daily as needed midodrine (Proamatine) 5 MG tablet Take 5 mg by mouth 3 (three) times a day as needed Active nitroglycerin 0.4 mg sublingual tablet (14 sources) Nitrate Vasodilator nitroglyceri n (Nitrostat) 0.[address] 0.4 mg under the tongue Active nystatin 100 unt/mg topical powder (1 source) Polyene Antifungal nystatin (MYCOSTATIN) 082050 UNIT/GM powder Apply topically 2 times daily Apply topically 2 times daily to ruby-area and abdomen PRN 0 Active ondansetron (ZOFRAN-ODT) disintegrating tablet 4 mg (1 source) Start: ondansetron (ZOFRAN-ODT) disintegrating tablet 4 mg Potassium Chloride (1 source) Start: potassium chloride (KLOR-CON M) extended release tablet 40 mEq PSYLLIUM HUSK PO (1 source) take 0.4 g by mouth twice daily PSYLLIUM HUSK PO Take 0.4 g by mouth 2 times daily 0 Active rivaroxaban 20 mg oral tablet (15 sources) Factor Xa Inhibitor Start: rivaroxaban (XARELTO) tablet 20 mg SITagliptin 25 mg oral tablet (1 source) Dipeptidyl Peptidase 4 Inhibitor Start: take 1 tablet by mouth once daily SITagliptin (JANUVIA) 25 MG tablet Take 1 tablet by mouth daily 30 tablet 0 09/09/2023 Active sotalol hydrochloride 80 mg oral tablet (13 sources) Antiarrhythmic take 1 tablet by mouth in the morning sotalol (Betapace) 80 MG tablet Take 80 mg by mouth in the morning and 80 mg in the evening. Active spironolactone 25 mg oral tablet (15 sources) Aldosterone Antagonist Start: spironolactone (ALDACTONE) tablet 50 mg take 1 tablet by mouth in the mo rning spironolactone (Aldactone) 50 MG tablet Take 1 tablet by mouth in the morning. Active Completed/Discontinued Medications Medication Drug Class(es) Dates Sig (Normalized) Sig (Original) acarbose 100 mg oral tablet (1 source) alpha-Glucosidas e Inhibitor End: 09-08-2023 take 1 tablet by mouth three times daily at mealtime acarbose (PRECOSE) 100 MG tablet Take 1 tablet by mouth 3 times daily (with meals) 0 09/08/2023 Discontinued azithromycin (ZITHROMAX) 500 mg in sodium chloride 0.9 % 250 mL IVPB ([id number]) (1 source) Start: 09-06-2023 End: 09-08-2023 azithromycin (ZITHROMAX) 500 mg in sodium chloride 0.9 % 250 mL IVPB ([id number]) calcium carbonate 600 mg / cholecalciferol 0.01 mg oral tablet (15 sources) Vitamin D Start: 09-08-2023 take 1 tablet by mouth twice daily 1 tablet, Oral, 2 TIMES DAILY, First dose on Wed09/08/23 at 2100, Until Discontinued take 1 tablet by zion once in the morning Calcium Plus Vitamin D 500-5 MG-MCG tabl et Take 1 tablet by mouth in the morning and 1 tablet in the evening. Active take 1 tablet by mouth twice suni ly calcium-vitamin D (OSCAL-500) 500-5 MG-MCG TABS per tablet Take 1 tablet by mouth 2 times daily 0 Active carboxymethylcellulose 0.01 mg/mg ophthalmic gel (1 source) Start: 09-08-2023 1 drop, Both Eyes, 2 TIMES DAILY, First dose on Wed09/08/23 at 2100, Until Discontinued cefTRIAXone (ROCEPHIN) 1000 mg in sterile water 10 mL IV syringe (1 source) Start: 09-06-2023 End: 09-08-2023 cefTRIAXone (ROCEPHIN) 1000 mg in sterile water 10 mL IV syringe dextromethorphan hydrobromide 20 mg / quiNIDine sulfate 10 mg oral capsule (15 sources) Antiarrhythmic, Uncompetitive H-fwsveo-O-aspart ate Receptor Antagonist, Cytochrome P450 2D6 Inhibitor, Sigma-1 Agonist Start: 09-08-2023 take 1 capsule by mouth every twelve hours 1 capsule, Oral, EVERY 12 HOURS, First dose on Wed09/08/23 at 1600, Until Discontinued Dextromethorphan -quiNIDine 20-10 MG capsule Take 1 capsule by mouth Active take 1 capsule by mo [facility] once in the morning dextromethorphan-quiNIDine (NUEDEXTA) 20 -10 MG CAPS per capsule Indications: Pseudobulbar Affect Take 1 capsule by mouth in the morning and 1 capsule in the evening. Indications: Pseudobulbar Affect. 0 Active 24 hr dilTIAZem hydrochloride 180 mg extended release oral capsule (1 source) Calcium Channel Shanti End: 09-09-2023 take 1 capsule by mouth once daily dilTIAZem (DILACOR XR) 180 MG extended release capsule Take 1 capsule by mouth daily 0 09/09/2023 Discontinued (Stop Taking at Discharge) ergocalciferol 1.25 mg oral capsule (1 source) Provitamin D2 Compound End: 09-09-2023 take 1 capsule by mouth two times weekly ergocalciferol (ERGOCALCIFEROL) 1.25 MG (04132 UT) capsule Take 1 capsule by mouth Twice a Week On Wednesday and Wednesday 0 09/09/2023 Discontinued (Stop Taking at Discharge) estrogens, conjugated (mcfp) 0.625 mg oral tablet (2 sources) Estrogen End: 09-07-2023 take 1 tablet by mouth once daily estrogens, conjugated, (PREMARIN) 0.625 MG tablet Take 1 tablet by mouth daily 0 09/07/2023 Discontinued (LIST CLEANUP) End: 09-09-2023 estrogens conjugated (PREMAR IN) 0.625 MG/GM CREA vaginal cream Place 0.5 g vaginally Twice a Week On Wednesday and Wednesday 0 09/09/2023 Discontinued (Stop Taking at Discharge) Lactobacillus acidophilus (2 sources) End: 09-07-2023 take 1 dose by mouth once daily acidophilus (LACTINEX/FLORANEX) Take 1 packet by mouth daily 0 09/07/2023 Discontinued (LIST CLEANUP) End: 09-08-2023 take 1 dose by mouth four times daily acidophilus (LACTINEX/FLORANEX) Take 1 packet by mouth 4 times daily 0 09/08/2023 Discontinued memantine hydrochloride 5 mg oral tablet (16 sources) J-wzzsjd-Z-aspartate Receptor Antagonist Start: 09-08-2023 take 7.5 mg by mouth twice daily 7.5 mg, Oral, 2 TIMES DAILY, First dose on Wed09/08/23 at 2100, Until Discontinued Substituted for Memantine ER (NAMENDA XR). Start: 09-07-2023 End: 09-08-2023 memantine (NAMENDA) tablet 2 0 mg take 1 capsule by mo ut every twenty-four hours in the morning Memantine HCl ER 21 MG capsule sustained-release 24 hr Take 1 capsule by mouth in the morning. Active take 1 capsule by mo uth once daily memantine ER (NAMENDA XR) 21 MG CP24 extended release capsule Take 1 capsule by mouth daily 0 Active ondansetron 4 mg disintegrating oral tablet (1 source) Serotonin-3 Receptor Antagonist End: 09-09-2023 take 1 tablet by mouth every eight hours as needed for nausea ondansetron (ZOFRAN-ODT) 4 MG disintegrating tablet Take 1 tablet by mouth every 8 hours as needed for Nausea or Vomiting 0 09/09/2023 Discontinued (Stop Taking at Discharge) pioglitazone 15 mg oral tablet (1 source) Peroxisome Proliferator Receptor alpha Agonist, Peroxisome Proliferator Receptor gamma Agonist, Thiazolidinedione End: 09-08-2023 take 0.5 tablet by mouth once daily in the morning pioglitazone (ACTOS) 15 MG tablet Take 0.5 tablets by mouth every morning 0 09/08/2023 Discontinued polyethylene glycol 3350 47742 mg powder for oral solution (2 sources) Osmotic Laxative Start: 09-06-2023 17 g, Oral, DAILY PRN, Starting on Wed09/06/23 at 1946, Until Discontinued, Constipation First line therapy for constipation simethicone 125 mg oral capsule (1 source) End: 09-09-2023 take 1 capsule by mouth three to four times daily as needed Simethicone 125 MG CAPS Indications: 3-4 times daily PRN Take 1 capsule by mouth as needed (abdominal distention) Indications: 3-4 times daily PRN 0 09/09/2023 Discontinued (Stop Taking at Discharge) 5 ml sodium chloride 9 mg/ml injection (4 sources) Start: 09-06-2023 take 1 dose intravenously twice daily 5-40 mL, IntraVENous, EVERY 12 HOURS SCHEDULED (2 times per day), First dose on Wed09/06/23 at 2100, Until Discontinued For Line Patency: Peripheral IV = 5 mL; Midline or Central Line = 10 mL/lumen.&nbs p; If following IV push medication, administer flush at same rate as the IV push. Flush volume is determined by type of infusion therapy being given. &nbsp ;For non-viscous solutions use: Periphe ral IV = 5 mL Midline or Central Line = 10 mL/lumen &nb sp;For viscous solutions (i.e. blood components, parenteral nutrition, contrast media, or after obtaining blood sample) use: Periphe ral IV = 10 mL Midline or Central Line = 20 mL/lumen Start: 09-06-2023 IntraVENous, a t 5-250 mL/hr, PRN, if patient receiving piggyback infusions and maintenance fluids are not ordered OR KVO fluids to protect IV site / prevent frequent line interruptions/ long duration, Starting on Wed09/06/23 at 1946 For piggyback infusion, administer at same rate as piggyback for a total of 25 mL. Enter 25 mL into dose field and piggyback rate into rate field of order. If piggyback is infusing at a rate less than 100 mL/hr, enter 25 mL into dose field and 100 mL/hr into rate field of order. For KVO fluids, enter rate of 20 mL/hr or less into rate field of order. Start: 09-06-2023 take 5-40 mL intrave nously once as needed 5-40 mL, IntraVENous, PRN, Starting on Wed09/06/23 at 1946, Until Discontinued, Line Care, After every IV line use For Line Patency: Peripheral IV = 5 mL; Midline or Central Line = 10 mL/lumen. If following IV push medication, administer flush at same rate as the IV push. Flush volume is determined by type of infusion therapy being given. For non-viscous solutions use: Peripheral IV = 5 mL Midline or Central Line = 10 mL/lumen For viscous solutions (i.e. blood components, parenteral nutrition, contrast media, or after obtaining blood sample) use: Peripheral IV = 10 mL Midline or Central Line = 20 mL/lumen Start: 09-06-2023 End: 09-06-2023 sodium chloride 0.9 % bolus 500 mL traZODone hydrochloride 50 mg oral tablet (2 sources) Serotonin Reuptake Inhibitor Start: 09-08-2023 take 75 mg by mouth once daily 75 mg, Oral, NIGHTLY, First dose on Wed09/08/23 at 2100, Until Discontinued take 0.5 tablet by mouth once da jade traZODone (DESYREL) 150 MG tablet Take 0.5 tablets by mouth nightly 0 Active Problems Active Problems Problem Classification Problem Date Documented Date Episodic/Chronic Cardiac dysrhythmias (5 sources) Unspecified atrial fibrillation; Translations: [Atrial fibrillation] Onset: 02-24-2022 09-06-2023 Chronic Cardiac dysrhythmias (4 sources) Bradycardia, unspecified; Translations: [Bradycardia] Onset: 09-06-2023 09-07-2023 Episodic Chronic ulcer of skin (6 sources) Non-pressure chronic ulcer of other part of left foot with fat layer exposed; Translations: [Ulcer of other part of foot] 01-13-2024 Chronic Congestive heart failure; nonhypertensive (5 sources) Heart failure, unspecified; Translations: [Congestive heart failure] Onset: 02-24-2022 09-07-2023 Chronic Coronary atherosclerosis and other heart disease (1 source) Atherosclerotic heart disease of [place] coronary artery without angina pectoris; Translations: [ASHD [place] W/O ANGINA PECTORIS] Onset: 02-24-2022 Chronic Deficiency and other anemia (1 source) Iron deficiency anemia, unspecified; Translations: [IRON DEFICIENCY ANEMIA UNSPECIFIED] Onset: 02-24-2022 Episodic Delirium, dementia, and amnestic and other cognitive disorders (2 sources) Mild dementia; Translations: [Mild dementia (HCC)] Onset: 09-07-2023 09-07-2023 Chronic Diabetes mellitus with complications (10 sources) Polyneuropathy due to diabetes mellitus; Translations: [Diabetes mellitus due to underlying condition with diabetic polyneuropathy] 01-13-2024 Chronic Diabetes mellitus without complication (3 sources) Type 2 diabetes mellitus without complications; Translations: [Diabetes mellitus] Onset: 02-24-2022 09-06-2023 Chronic Esophageal disorders (3 sources) Gastro-esophageal reflux disease without esophagitis; Translations: [Gastroesophageal reflux disease] Onset: 02-24-2022 09-06-2023 Chronic Gangrene (4 sources) Gangrenous disorder; Translations: [Gangrene, not elsewhere classified] 05-04-2024 Episodic Hypertension with complications and secondary hypertension (1 source) Hypertensive heart disease with heart failure; Translations: [HTN HEART DISEASE W/HEART FAIL] Onset: 02-24-2022 Chronic Influenza (1 source) Influenza due to other identified influenza virus with unspecified type of pneumonia; Translations: [FLU D/T OTH ID FLU VIR UNS TYPE PN] Onset: 02-24-2022 Episodic Mycoses (6 sources) Pain in toe; Translations: [Tinea unguium] 01-13-2024 Episodic Other aftercare (1 source) Other assisted (current) drug therapy; Translations: [OTH USP CURRENT DRUG THERAPY] Onset: 02-24-2022 Episodic Other [...] Chronic Poisoning by other medications and drugs (4 sources) Poisoning by cardiac-stimulant glycosides and drugs of similar action, accidental (unintentional), initial encounter; Translations: [Poisoning by digoxin] Onset: 09-08-2023 09-07-2023 Episodic Residual codes; unclassified (1 source) Pain, unspecified; Translations: [Pain, unspecified] Onset: 04-04-2024 Episodic Respiratory failure; insufficiency; arrest (adult) (1 [...] ACIDOSIS UNSPECIFIED; Translations: [ACIDOSIS UNSPECIFIED] Onset: 02-24-2022 Unclassified (2 sources) Longstanding persistent atrial fibrillation; Translations: [Longstanding persistent atrial fibrillation] Onset: 11-05-2023 Unclassified (2 sources) New Patient Onset: 11-05-2023 Urinary tract infections (1 source) Urinary tract infection, site not specified; Translations: [UTI SITE NOT SPECIFIED] Onset: 02-24-2022 Episodic Past or Other Problems Problem Classification Problem Date Documented Da te Episodic/Chronic Administrative/social admission (4 sources) Patient encounter status; Translations: [Other specified counseling] Onset: 09-07-2023 09-07-2023 Episodic Deficiency and other anemia (2 sources) Iron deficiency anemia; Translations: [Iron deficiency anemia, unspecified] Onset: 09-06-2023 09-06-2023 Episodic E Codes: Adverse effects of medical drugs (2 sources) Digoxin adverse reaction; Translations: [Adverse effect of cardiac-stimulant glycosides and drugs of similar action, initial encounter] Onset: 09-07-2023 09-08-2023 Episodic Other aftercare (2 sources) Polypharmacy ; Translations: [Other assisted (current) drug therapy] Onset: 09-07-2023 09-07-2023 Episodic Results Test Name Value Interpretation Reference Range Facility Orders Onlyon 04-19-2024 Orders Only [id number] Starla Sweeney 1945 F Date Provider Department Center 04/19/2024 JESSICA NAIR CARD [facility] No family history on file Normal [facility] Office Visiton 04-18-2024 Follow-up visit [id number] Starla Sweeney 1945 F Date Provider Department [place] 04/18/2024 CIARAN JEAN CARD [facility] No family history on file Level of Service:88812 [place] OFFICE/OUTPATIENT ESTABLISHED LOW MDM 20 MIN [facility] 36on 04-12-[address] [facility] I received a call from the patients facility regarding her recent weights.On 04/09 she weighed 190, but then 193.5 on 04/10 and 193.3 on 04/11. Normal [facility] Telephoneon 04-12-2024 Telephone [id number] Starla Sweeney 1945 F Date Provider Department Center 04/12/2024 [id number] [facility] CARD [facility] No family history on file Reason for Visit and Comments: Weight Gain [180] Normal [facility] Urine Cultureon 03-30-2024 Bacteria identified Cx Nom (U) ORGANISM: Citrobacter koseri (O:CITKOS) [place] Count >100,000 ORGANISM: Citrobacter koseri (O:CITKOS) [place] Count 75,000 Aerobic YULIANA Charge (NMIC56) ---- SUSCEPTIBILITY --- ORGANISM: O:CITKOS ANTIBIOTIC INTERPRETATION YULIANA Amikacin S <16 Amoxacillin/K Clavulanate S <8 Ampicillin/Sulbactam S <4 Aztreonam S <4 Cefazolin S <2 Cefepime S <2 Ceftazidime S <1 Ceftazidime/Avibactam S <4 Ceftolozane/Tazobacta m S <2 Ceftriaxone S <1 Cefuroxime S <4 Ciprofloxacin S <0.25 Ertapenem S <0.5 Gentamicin S <2 Levofloxacin S <0.5 Meropenem S <1 Meropenem/Vaborbactam S <2 Nitrofurantoin S <32 Piperacillin/Tazobact am S <8 Tetracycline S <4 Tigecycline S <2 Tobramycin S <2 Trimethoprim/Sulfamet hoxazole S <0.5 Aerobic YULIANA Charge (NMIC56) ---- SUSCEPTIBILITY --- ORGANISM: O:CITKOS ANTIBIOTIC INTERPRETATION YULIANA Amikacin S <16 Amoxacillin/K Clavulanate S <8 Ampicillin/Sulbactam S <4 Aztreonam S <4 Cefazolin S <2 Cefepime S <2 Ceftazidime S <1 Ceftazidime/Avibactam S <4 Ceftolozane/Tazobacta m S <2 Ceftriaxone S <1 Cefuroxime S <4 Ciprofloxacin S <0.25 Ertapenem S <0.5 Gentamicin S <2 Levofloxacin S <0.5 Meropenem S <1 Meropenem/Vaborbactam S <2 Nitrofurantoin I 64 Piperacillin/Tazobact am S <8 Tetracycline S <4 Tigecycline S <2 Tobramycin S <2 Trimethoprim/Sulfamet hoxazole S <0.5 S = SUSCEPTIBLE I = INTERMEDIATE R = RESISTANT BLANK = DATA NOT AVAILABLE, OR DRUG NOT ADVISABLE OR TESTED R* = RESISTANCE DUE TO EXTENDED SPECTRUM BETA-LACTAMASES ESBL = EXTENDED SPECTRUM BETA-LACTAMASE TFG = THYMIDINE-DEPENDENT STRAIN KRISTOPHER = BETA-LACTAMASE POSITIVE IB = INDUCIBLE BETA-LACTAMASE. APPEARS IN PLACE OF 'S' WITH SPECIES KNOWN TO POSSESS INDUCIBLE BETA-LACTAMASES. POTENTIALLY THEY MAY BECOME RESISTANT TO ALL B-LACTAM DRUGS. PERFORMED BY: [facility] [address] [place] [id number] PATHOLOGIST HAND ENGRAVER YONI Pal [facility] Comment on above: Performed By: #### C UU #### [facility] [address] [id number] [facility] HPon 01-27-2024 [facility] Electrophysiology Consult Note [place] [facility]iology - [facility] Reason for visit: Afib HPI: Starla Sweeney is a 78 y.o. year old with past medical history of diabetes, atrial fibrillation, CAD s/p PCI, HFpEF. Patient here for a-fib management per Dr. Ford. Patient has had atrial fibrillation for past 6-7 years. Has been managed on Sotalol and Xarelto. Patient is accompanied by her son today, she is able to give limited information herself. She denies any chest pain, shortness of breath. She admits to feeling occasional palpitations at night. She has never been cardioverted and feels that she has been in it all the time for past 2-3months. 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 Patient family is requesting further management strategies for atrial fibrillation. PMH: Past Medical History: Diagnosis Date Abnormal ECG Arrhythmia Atrial fibrillation (CMS/HCC) CHF (congestive heart failure) ([facility]/HCC) Coronary artery disease Diabetes (CMS/HCC) Stroke (CMS/HCC) PSH: No past surgical history on file. SH: Social Determinants of Health Tobacco Use: Medium Risk (12/28/2023) Patient History Smoking Tobacco Use: Former Smokeless Tobacco Use: Never Passive Exposure: Not on file Alcohol Use: Not on file Financial Resource Strain: Not on file Food Insecurity: Not on file Transportation Needs: Not on file Physical Activity: Not on file Stress: Not on file Social Connections: Not on file Intimate Partner Violence: Unknown (05/13/2023) DC Safety & Environment Fear of Current or Ex-Partner: Not on file Emotionally Abused: Not on file Physically Abused: Not on file Sexually Abused: Not on file Physically or Sexually Abused: Not on file Depression: Not on file Housing Stability: Not on file Utilities: Not on file Allergies: Allergies Allergen Reactions Aspirin GI intolerance INTOLERANCE TO UNCOATED FULL-DOSE ASA Hydrochlorothiazide Unknown Lyrica [Pregabalin] Unknown Penicillins Unknown Prozac [Fluoxetine] Unknown Sulfa (Sulfonamide Antibiotics) Unknown Tetanus Vaccines And Toxoid Unknown Zoloft [Sertraline] Unknown Weight: No weight available Visit Vitals OB Status Postmenopausal Smoking Status Former Meds: No current facility-administered medications on file prior to encounter. Current Outpatient Medications on File Prior to Encounter Medication Sig Dispense Refill atorvastatin (Lipitor) 20 mg tablet Take 1 tablet by mouth in the morning. calcium carbonate-vitamin D3 500 mg-5 mcg (200 unit) tablet Take 1 tablet by mouth in the morning and at bedtime. dextromethorphan-reza idine (Nuedexta) 20-10 mg capsule Take 1 capsule [...] morning. lamoTRIgine (LaMICtal) 25 mg tablet Take 125 mg by mouth in the morning. linaGLIPtin (Tradjenta) 5 mg tablet Take 5 mg by mouth in the morning. magnesium oxide (Mag-Ox) 200 mg split tablet Take 1 tablet by mouth in the morning. memantine 21 mg capsule,sprinkle,ER 24hr Take 1 capsule by mouth in the morning. metFORMIN (Glucophage) 1,000 mg tablet Take 1 tablet by mouth at bedtime. midodrine (Proamatine) 5 mg tablet Take 5 mg by mouth if needed in the morning, at noon, and at bedtime. nitroglycerin (Nitrostat) 0.[address] 0.4 mg under the tongue. rivaroxaban (Xarelto) 20 mg tablet Take 20 mg by mouth. sotalol (Betapace) 80 mg tablet Take 80 mg by mouth two times daily. spironolactone (Aldactone) 50 mg tablet Take 1 tablet by mouth in the morning. traZODone (Desyrel) 150 mg tablet Take 75 mg by mouth. ROS: Review of Systems Cardiovascular: Positive for chest pain and dyspnea on exertion. Respiratory: Positive for shortness of breath. Neurological: Positive for dizziness and light-headedness. Physical Exam: Constitutional General Appearance: well-nourished, well-developed, appears stated age Level of Distress: comfortable Psychiatric Mental Status: alert, normal affect Orientation: oriented to time, place, and person Insight: good judgement Eyes Lids and Conjunctivae: non-injected, no xanthelasma ENMT Ears: no lesions on external ear Nose: no lesions on external nose Oropharynx: no cyanosis, no pallor Neck Neck: supple, trachea midline Carotid Arteries: bilateral normal upstroke, no bruits Jugular Veins: normal jugular venous pressure Thyroid: not enlarged Lungs Respiratory Effort: unlabored Chest Exam: normal curvature, no thoracic deformity Auscultation: clear, no wheezing, no rales, no rhonchi Cardiovascular Rate And Rhythm: irregularly irregular Heart Sounds: normal S1, normal s2, no ga (more content not included)... Normal [facility] NURSNOTEon 01-27-2024 NURSNOTE RN educated pt on d/ c instructions. This included: site care, limited physical activity, resume normal diet, future appointments, medications, and moderate sedation instructions. RN educated pt on when to notify physician and when to go to the hospital. RN encouraged pt to voice any questions or concerns, and answered any questions or concerns if pt verbalized. Pt was wheeled off of unit with all of belongings. Normal [facility] Office Visiton 12-28-2023 Follow-up visit [id number] PatelStarla L 1945 Date Provider Department Center 12/28/2023 241-CIARAN PABON [facility] No family history on file Level of Service:63345 [place] OFFICE/OUTPATIENT NEW MODERATE MDM 45 MINUTES Normal [facility] Office Visiton 11-05-2023 Follow-up visit [id number] PatelRosa mckeoneber Burton 1945 Date Provider Department Center 11/05/2023 3848-KAYLAH SIMMONS [facility] No family history on file Level of Service:39135 [place] OFFICE/OUTPATIENT NEW MODERATE MDM 45 MINUTES Reason for Visit and Comments: New Patient [Other] - Afib Concerns: States Hypotension and tachycardic. States Collapsed Left lung and stent is in. States SOB. Was in ICU 60 days ago for digoxin overdose. Started digoxin again. Wants to know if candidate for pacemaker. No further cardiac concerns/symptoms. Normal [facility] Basic Metab w/rfx MGon 09-08 Anion gap [Moles/Vol] 8 mmol/L Low 9-16 [facility] Comment on above: Performed By: #### F YENY RAMOS, BNP #### [facility] [address] [place] [phone] Ekg/Ecg Technician: Giovany Patel MD Calcium [Mass/Vol] 10.3 mg/dL Normal 8.6-10.4 [facility] Comment on above: Performed By: #### YENY KNOX, BNP #### [facility] [address] [place] [address]38 Ekg/Ecg Technician: Giovany Patel MD Chloride [Moles/Vol] 94 mmol/L Low 98-107 [facility] Comment on above: Performed By: #### YENY KNOX, BNP #### [facility] [address] [place] [phone] Ekg/Ecg Technician: Giovany Patel MD CO2 [Moles/Vol] 36 mmol/L High 20-31 [facility] Comment on above: Performed By: #### YENY KNOX, BNP #### [facility] [address] [place] [address] Ekg/Ecg Technician: Giovany Patel MD Creatinine [Mass/Vol] 0.6 mg/dL Normal 0.50-0.90 [facility] Comment on above: Performed By: #### YENY KNOX, BNP #### [facility] [address] [place] [address]17 Ekg/Ecg Technician: Giovany Patel MD GFR/1.73 sq M.predicted among non-blacks MDRD (S/P/Bld) [Vol rate/Area] mL/min/{1.73_m2} Normal >60 [facility] Comment on above: Result Comment: [...] By: #### F YENY RAMOS, BNP #### [facility] [address] [place] [address]36 Ekg/Ecg Technician: Giovany Patel MD Glucose [Mass/Vol] 178 mg/dL High 74-99 [facility] Comment on above: Performed By: #### YENY KNOX, BNP #### [facility] [address] [place] [phone] Ekg/Ecg Technician: Giovany Patel MD Potassium [Moles/Vol] 4.2 mmol/L Normal 3.7-5.3 [facility] Comment on above: Performed By: #### YENY KNOX, BNP #### [facility] [address] [place] [address] [phone] Ekg/Ecg Technician: Giovany Patel MD Sodium [Moles/Vol] 138 mmol/L Normal 136-145 [facility] Comment on above: Performed By: #### YENY KNOX, BNP #### [facility] [address] [place] [address]43 Ekg/Ecg Technician: Giovany Patel MD Urea nitrogen [Mass/Vol] 13 mg/dL Normal 8-23 [facility] Comment on above: Performed By: #### YENY KNOX, BNP #### [facility] [address] [place] [phone] Ekg/Ecg Technician: Giovany Patel MD Basic Metabolic Panel w/ Ref ny to MGon 09-09-2023 Anion gap [Moles/Vol] 8 mmol/L Low 9 - 16 mmol/L [facility] Calcium [Mass/Vol] 10.3 mg/dL 8.6 - 10. 4 mg/dL [facility] Chloride [Moles/Vol] 94 mmol/L Low 98 - 107 mmol/L [facility] CO2 [Moles/Vol] 36 mmol/L High 20 - 31 mmol/L [facility] Creatinine [Mass/Vol] 0.6 mg/dL 0.50 - 0.90 mg/dL [facility] EstNeftali Rate - [facility] Comment on above: These results are not intended for use [...] following therapy that affects renal tubular secretion. Glucose [Mass/Vol] 178 mg/dL High 74 - 99 mg/dL [facility] Interpretation and review of laboratory results Abnormal [facility] Potassium [Moles/Vol] 4.2 mmol/L 3.7 - 5.3 mmol/L [facility] Sodium [Moles/Vol] 138 mmol/L 136 - 145 mmol/L [facility] Urea nitrogen [Mass/Vol] 13 mg/dL 8 - 23 mg/dL [facility] CBC with Auto Differentialon 09-09-2023 Basophils (Bld) [#/Vol] 0.03 10*3/uL [facility] Basophils/100 WBC (Bld) 0 % 0 - 2 % [facility] Eosinophils (Bld) [#/Vol] 0.18 10*3/uL [facility] Eosinophils/100 WBC (Bld) 2 % 1 - 4 % [facility] Erythrocyte distribution width (RBC) [Ratio] 17.3 % High 11.8 - 14.4 % [facility] Hematocrit (Bld) [Volume fraction] 30.2 % Low 36.3 - 47.1 % [facility] Hemoglobin (Bld) [Mass/Vol] 8.8 g/dL Low 11.9 - 15.1 g/dL [facility] Immature granulocytes (Bld) [#/Vol] 0.08 10*3/uL [facility] Immature granulocytes/100 WBC (Bld) 1 % High 0 [facility] Interpretation and review of laboratory results Abnormal [facility] Lymphocytes/100 WBC (Bld) 16 % Low 24 - 43 % [facility] Lymphocytes/100 WBC (Bld) 1.55 % [facility] MCH (RBC) [Entitic mass] 29.0 pg 25.2 - 33.5 pg [facility] MCHC (RBC) [Mass/Vol] 29.1 g/dL 28.4 - 34.8 g/dL [facility] MCV (RBC) [Entitic vol] 99.7 fL 82.6 - 102.9 fL [facility] Monocytes/100 WBC (Bld) 10 % 3 - 12 % [facility] Monocytes/100 WBC (Bld) 0.95 % [facility] Neutrophils/100 WBC (Bld) 71 % High 36 - 65 % [facility] Nucleated RBC/100 WBC (Bld) [Ratio] 0.0 % 0.0 per 100 WBC [facility] Platelet mean volume (Bld) [Entitic vol] 8.7 fL 8.1 - 13.5 fL [facility] Platelets (Bld) [#/Vol] 348 10*3/uL [facility] RBC (Bld) [#/Vol] 3.03 10*6/uL Low 3.95 - 5.1 1 m/uL [facility] RBC (Bld) [#/Vol] ANISOCYTOSIS PRESENT [facility] Segmented neutrophils/100 WBC (Bld) 7.10 % [facility] WBC other (Bld) [#/Vol] 9.9 [facility] CBC with Diffon 09-09-2023 Abs. Basophil 0.03 k/uL Normal 0.00-0.20 [facility] Comment on above: Performed By: #### U KRIS RESENDIZ #### [address] [phone] Ekg/Ecg Technician: Giovany Patel MD Abs.Imm.Granulocyte 0.08 k/uL Normal 0.00-0.30 [facility] Comment on above: Performed By: #### U MARTÍN, UAX #### [address] [address] Ekg/Ecg Technician: Giovany Patel MD Abs.Neutrophil (Seg) 7.10 k/uL Normal 1.50-8.10 [facility] Comment on above: Performed By: #### U MARTÍN UAX #### [address] [address] Ekg/Ecg Technician: Giovany Patel MD Basophils/100 WBC (Bld) 0 % Normal 0-2 [facility] Comment on above: Performed By: #### U MARTÍN UAX #### [address] [address] Ekg/Ecg Technician: Giovany Patel MD Eosinophils (Bld) [#/Vol] 0.18 10*3/uL Normal 0.00-0.44 [facility] Comment on above: Performed By: #### U MARTÍN, UAX #### [facility] [address] [place] [address] Ekg/Ecg Technician: Giovany Patel MD Eosinophils/100 WBC (Bld) 2 % Normal 1-4 [facility] Comment on above: Performed By: #### U MARTÍN UAX #### [facility] [address] [place] [phone] Ekg/Ecg Technician: Giovany Patel MD Erythrocyte distribution width (RBC) [Ratio] 17.3 % High 11.8-14.4 [facility] Comment on above: Performed By: #### U MARTÍN, UAX #### [address] [address] Ekg/Ecg Technician: Giovany Patel MD Hematocrit (Bld) [Volume fraction] 30.2 % Low 36.3-47.1 [facility] Comment on above: Performed By: #### U MARTÍN UAX #### [address] [address] Ekg/Ecg Technician: Giovany Patel MD Hemoglobin (Bld) [Mass/Vol] 8.8 g/dL Low 11.9-15.1 [facility] Comment on above: Performed By: #### U MARTÍN, UAX #### [address] [address] Ekg/Ecg Technician: Giovany Patel MD Immature granulocytes/100 WBC (Bld) 1 % High 0 [facility] Comment on above: Performed By: #### Michelle RESENDIZ UAX #### [address] [address] Ekg/Ecg Technician: Giovany Patel MD Lymphocytes (Bld) [#/Vol] 1.55 10*3/uL Normal 1.10-3.70 [facility] Comment on above: Performed By: #### U MARTÍN UAX #### [address] [address] Ekg/Ecg Technician: Giovany Patel MD Lymphocytes/100 WBC (Bld) 16 % Low 24-43 [facility] Comment on above: Performed By: #### U MARTÍN UAX #### [address] [address] Ekg/Ecg Technician: Giovany Patel MD MCH (RBC) [Entitic mass] 29.0 pg Normal 25.2-33.5 [facility] Comment on above: Performed By: #### U MARTÍN, UAX #### [address] [address] Ekg/Ecg Technician: Giovany Patel MD MCHC (RBC) [Mass/Vol] 29.1 g/dL Normal 28.4-34.8 [facility] Comment on above: Performed By: #### Michelle RESENDIZ UAX #### [address] [address] Ekg/Ecg Technician: Giovany Patel MD MCV (RBC) [Entitic vol] 99.7 fL Normal 82.6-102.9 [facility] Comment on above: Performed By: #### U MARTÍN UAX #### [address] [address] Ekg/Ecg Technician: Giovany Patel MD Monocytes (Bld) [#/Vol] 0.95 10*3/uL Normal 0.10-1.20 [facility] Comment on above: Performed By: #### Michelle RESENDIZ UAX #### [address] [address] Ekg/Ecg Technician: Giovany Patel MD Monocytes/100 WBC (Bld) 10 % Normal 3-12 [facility] Comment on above: Performed By: #### Michelle RESENDIZ UAX #### [address] [address] Ekg/Ecg Technician: Giovany Patel MD Neutrophil (Seg) 71 % High 36-65 [facility] Comment on above: Performed By: #### Michelle RESENDIZ UAX #### [address] [address] Ekg/Ecg Technician: Giovany Patel MD NRBC Automated 0.0 per 100 WBC Normal 0.0 [facility] Comment on above: Performed By: #### U MARTÍN UAX #### [address] [address] Ekg/Ecg Technician: Giovany Patel MD Platelet mean volume (Bld) [Entitic vol] 8.7 fL Normal 8.1-13.5 [facility] Comment on above: Performed By: #### U CORINNEO, UAX #### [facility] [place] [address] Ekg/Ecg Technician: Giovany Patel MD Platelets (Bld) [#/Vol] 348 10*3/uL Normal 138-453 [facility] Comment on above: Performed By: #### U MARTÍN, UAX #### [facility] [address] [place] [address] Ekg/Ecg Technician: Giovany Patel MD RBC (Bld) [#/Vol] 3.03 10*6/uL Low 3.95-5.11 [facility] Comment on above: Performed By: #### U CORINNEO, UAX #### [facility] [address] [place] [address]35 Ekg/Ecg Technician: Giovany Patel MD RBC morphology finding Nom (Bld) ANISOCYTOSIS PRESENT Normal [facility] Comment on above: Performed By: #### U MARTÍN, UAX #### [facility] [address] [place] [address] Ekg/Ecg Technician: Giovany Patel MD WBC (Bld) [#/Vol] 9.9 10*3/uL Normal 3.5-11.3 [facility] Comment on above: Performed By: #### U MARTÍN, UAX #### [facility] [address] [place] [address] Ekg/Ecg Technician: Giovany Patel MD Glucose,Whole Bloodon 2023 Glucose [Mass/Vol] 189 mg/dL High 65-105 [facility] Glucose [Mass/Vol] 291 mg/dL High 65-105 [facility] Glucose [Mass/Vol] 179 mg/dL High 65-105 [facility] POC Glucose Fingerstickon Glucose [Mass/Vol] 189 mg/dL High 65 - 105 mg/dL [facility] Interpretation and review of laboratory results Abnormal [facility] Glucose [Mass/Vol] 291 mg/dL High 65 - 105 mg/dL [facility] Interpretation and review of laboratory results Abnormal [facility] Glucose [Mass/Vol] 179 mg/dL High 65 - 105 mg/dL [facility] Interpretation and review of laboratory results Abnormal [facility] Basic Metab w/rfx MGon 09-07 Anion gap [Moles/Vol] 11 mmol/L Normal 9-16 [facility] Comment on above: Performed By: #### U MICAO, UAX #### [facility] [address] [place] [address] Ekg/Ecg Technician: Giovany Patel MD Calcium [Mass/Vol] 9.5 mg/dL Normal 8.6-10.4 [facility] Comment on above: Performed By: #### U MICAO, UAX #### [facility] [address] [place] [address] Ekg/Ecg Technician: Giovany Patel MD Chloride [Moles/Vol] 95 mmol/L Low 98-107 [facility] Comment on above: Performed By: #### U MICAO, UAX #### [facility] [address] [place] [address] Ekg/Ecg Technician: Giovany Patel MD CO2 [Moles/Vol] 32 mmol/L High 20-31 [facility] Comment on above: Performed By: #### U MICAO, UAX #### [facility] [address] [place] [address] Ekg/Ecg Technician: Giovany Patel MD Creatinine [Mass/Vol] 0.5 mg/dL Normal 0.50-0.90 [facility] Comment on above: Performed By: #### U MICAO, UAX #### [facility] [address] [place] [address] Ekg/Ecg Technician: Giovany Patel MD GFR/1.73 sq M.predicted among non-blacks MDRD (S/P/Bld) [Vol rate/Area] mL/min/{1.73_m2} Normal >60 [facility] Comment on above: Result Comment: [...] renal tubular secretion. Performed By: #### U CORINNEO, UAX #### [facility] [address] [place] [address] Ekg/Ecg Technician: Giovany Patel MD Glucose [Mass/Vol] 173 mg/dL High 74-99 [facility] Comment on above: Performed By: #### U CORINNEO, UAX #### [facility] [address] [place] [address] Ekg/Ecg Technician: Giovany Patel MD Potassium [Moles/Vol] 3.8 mmol/L Normal 3.7-5.3 [facility] Comment on above: Performed By: #### U CORINNEO, UAX #### [facility] [address] [place] [address] Ekg/Ecg Technician: Giovany Patel MD Sodium [Moles/Vol] 138 mmol/L Normal 136-145 [facility] Comment on above: Performed By: #### U CORINNEO, UAX #### [facility] [address] [place] [address] Ekg/Ecg Technician: Giovany Patel MD Urea nitrogen [Mass/Vol] 13 mg/dL Normal 8-23 [facility] Comment on above: Performed By: #### U MICAO, UAX #### [facility] [address] [place] [phone] Ekg/Ecg Technician: Giovany Patel MD Basic Metabolic Panel w/ Ref ny to MGon 09-08-2023 Anion gap [Moles/Vol] 11 mmol/L 9 - 16 mmol/L [facility] Calcium [Mass/Vol] 9.5 mg/dL 8.6 - 10. 4 mg/dL [facility] Chloride [Moles/Vol] 95 mmol/L Low 98 - 107 mmol/L [facility] CO2 [Moles/Vol] 32 mmol/L High 20 - 31 mmol/L [facility] Creatinine [Mass/Vol] 0.5 mg/dL 0.50 - 0.90 mg/dL [facility] Est, Neftali Lakhani Rate - PINF [facility] Comment on above: These results are not intended for use [...] following therapy that affects renal tubular secretion. Glucose [Mass/Vol] 173 mg/dL High 74 - 99 mg/dL [facility] Interpretation and review of laboratory results Abnormal [facility] Potassium [Moles/Vol] 3.8 mmol/L 3.7 - 5.3 mmol/L [facility] Sodium [Moles/Vol] 138 mmol/L 136 - 145 mmol/L [facility] Urea nitrogen [Mass/Vol] 13 mg/dL 8 - 23 mg/dL [facility] CBC with Auto Differentialon 09-08-2023 Basophils (Bld) [#/Vol] 0.03 10*3/uL [facility] Basophils/100 WBC (Bld) 0 % 0 - 2 % [facility] Eosinophils (Bld) [#/Vol] 0.18 10*3/uL [facility] Eosinophils/100 WBC (Bld) 2 % 1 - 4 % [facility] Erythrocyte distribution width (RBC) [Ratio] 17.8 % High 11.8 - 14.4 % [facility] Hematocrit (Bld) [Volume fraction] 27.9 % Low 36.3 - 47.1 % [facility] Hemoglobin (Bld) [Mass/Vol] 8.3 g/dL Low 11.9 - 15.1 g/dL [facility] Immature granulocytes (Bld) [#/Vol] 0.13 10*3/uL [facility] Immature granulocytes/100 WBC (Bld) 1 % High 0 [facility] Interpretation and review of laboratory results Abnormal [facility] Lymphocytes/100 WBC (Bld) 14 % Low 24 - 43 % [facility] Lymphocytes/100 WBC (Bld) 1.55 % [facility] MCH (RBC) [Entitic mass] 29.5 pg 25.2 - 33.5 pg [facility] MCHC (RBC) [Mass/Vol] 29.7 g/dL 28.4 - 34.8 g/dL [facility] MCV (RBC) [Entitic vol] 99.3 fL 82.6 - 102.9 fL [facility] Monocytes/100 WBC (Bld) 8 % 3 - 12 % [facility] Monocytes/100 WBC (Bld) 0.88 % [facility] Neutrophils/100 WBC (Bld) 75 % High 36 - 65 % [facility] Nucleated RBC/100 WBC (Bld) [Ratio] 0.0 % 0.0 per 100 WBC [facility] Platelet mean volume (Bld) [Entitic vol] 8.7 fL 8.1 - 13.5 fL [facility] Platelets (Bld) [#/Vol] 334 10*3/uL [facility] RBC (Bld) [#/Vol] 2.81 10*6/uL Low 3.95 - 5.1 1 m/uL [facility] RBC (Bld) [#/Vol] ANISOCYTOSIS PRESENT [facility] Segmented neutrophils/100 WBC (Bld) 8.08 % [facility] WBC other (Bld) [#/Vol] 10.9 [facility] CBC with Diffon 09-08-2023 Abs. Basophil 0.03 k/uL Normal 0.00-0.20 [facility] Comment on above: Performed By: #### Michelle RESENDIZ UAX #### [address] [address] Ekg/Ecg Technician: Giovany Patel MD Abs.Imm.Granulocyte 0.13 k/uL Normal 0.00-0.30 [facility] Comment on above: Performed By: #### U MARTÍN UAX #### [address] [address] Ekg/Ecg Technician: Giovany Patel MD Abs.Neutrophil (Seg) 8.08 k/uL Normal 1.50-8.10 [facility] Comment on above: Performed By: #### Michelle RESENDIZ UAX #### [address] [address] Ekg/Ecg Technician: Giovany Patel MD Basophils/100 WBC (Bld) 0 % Normal 0-2 [facility] Comment on above: Performed By: #### Michelle RESENDIZ UAX #### [place] [address] Ekg/Ecg Technician: Giovany Patel MD Eosinophils (Bld) [#/Vol] 0.18 10*3/uL Normal 0.00-0.44 [facility] Comment on above: Performed By: #### Michelle RESENDIZ UAX #### [address] [address] Ekg/Ecg Technician: Giovany Patel MD Eosinophils/100 WBC (Bld) 2 % Normal 1-4 [facility] Comment on above: Performed By: #### Michelle RESENDIZ UAX #### [address] [address] Ekg/Ecg Technician: Giovany Patel MD Erythrocyte distribution width (RBC) [Ratio] 17.8 % High 11.8-14.4 [facility] Comment on above: Performed By: #### Michelle RESENDIZ UAX #### [facility] [address] [place] [address] Ekg/Ecg Technician: Giovany Patel MD Hematocrit (Bld) [Volume fraction] 27.9 % Low 36.3-47.1 [facility] Comment on above: Performed By: #### U MICAO, UAX #### [facility] [address] [place] [address] Ekg/Ecg Technician: Giovany Patel MD Hemoglobin (Bld) [Mass/Vol] 8.3 g/dL Low 11.9-15.1 [facility] Comment on above: Performed By: #### U CORINNEO, UAX #### [address] [address] Ekg/Ecg Technician: Giovany Patel MD Immature granulocytes/100 WBC (Bld) 1 % High 0 [facility] Comment on above: Performed By: #### U MARTÍN, UAX #### [facility] [address] [place] [address] Ekg/Ecg Technician: Giovany Patel MD Lymphocytes (Bld) [#/Vol] 1.55 10*3/uL Normal 1.10-3.70 [facility] Comment on above: Performed By: #### U MARTÍN, UAX #### [address] [address] Ekg/Ecg Technician: Giovany Patel MD Lymphocytes/100 WBC (Bld) 14 % Low 24-43 [facility] Comment on above: Performed By: #### U MARTÍN, UAX #### [facility] [address] [place] [address] Ekg/Ecg Technician: Giovany Patel MD MCH (RBC) [Entitic mass] 29.5 pg Normal 25.2-33.5 [facility] Comment on above: Performed By: #### U MARTÍN, UAX #### [address] [address] Ekg/Ecg Technician: Giovany Patel MD MCHC (RBC) [Mass/Vol] 29.7 g/dL Normal 28.4-34.8 [facility] Comment on above: Performed By: #### U MICAO, UAX #### [address] [address] Ekg/Ecg Technician: Giovany Patel MD MCV (RBC) [Entitic vol] 99.3 fL Normal 82.6-102.9 [facility] Comment on above: Performed By: #### U MICAO, UAX #### [address] [address] Ekg/Ecg Technician: Giovany Patel MD Monocytes (Bld) [#/Vol] 0.88 10*3/uL Normal 0.10-1.20 [facility] Comment on above: Performed By: #### U MICAO, UAX #### [address] [address] Ekg/Ecg Technician: Giovany Patel MD Monocytes/100 WBC (Bld) 8 % Normal 3-12 [facility] Comment on above: Performed By: #### U MICAO, UAX #### [address] [address] Ekg/Ecg Technician: Giovany Patel MD Neutrophil (Seg) 75 % High 36-65 [facility] Comment on above: Performed By: #### U MICAO, UAX #### [address] [address] Ekg/Ecg Technician: Giovany Patel MD NRBC Automated 0.0 per 100 WBC Normal 0.0 [facility] Comment on above: Performed By: #### U MICAO, UAX #### [address] [address] Ekg/Ecg Technician: Giovany Patel MD Platelet mean volume (Bld) [Entitic vol] 8.7 fL Normal 8.1-13.5 [facility] Comment on above: Performed By: #### U MARTÍN, UAX #### [facility] [address] [place] [address] Ekg/Ecg Technician: Giovany Patel MD Platelets (Bld) [#/Vol] 334 10*3/uL Normal 138-453 [facility] Comment on above: Performed By: #### U MARTÍN, UAX #### [facility] [address] [place] [address] Ekg/Ecg Technician: Giovany Patel MD RBC (Bld) [#/Vol] 2.81 10*6/uL Low 3.95-5.11 [facility] Comment on above: Performed By: #### U MARTÍN, UAX #### [facility] [address] [place] [address] Ekg/Ecg Technician: Giovany Patel MD RBC morphology finding Nom (Bld) ANISOCYTOSIS PRESENT Normal [facility] Comment on above: Performed By: #### U MARTÍN, UAX #### [facility] [address] [place] [address] Ekg/Ecg Technician: Giovany Patel MD WBC (Bld) [#/Vol] 10.9 10*3/uL Normal 3.5-11.3 [facility] Comment on above: Performed By: #### U CORINNEO, UAX #### [facility] [address] [place] [address] Ekg/Ecg Technician: Giovany Patel MD Cardiac echo study Procedure on 09-08-2023 Aortic Root 2.9 cm [facility] Mean Gradient 10 mmHg [facility] Mean Velocity 1.4 m/s [facility] Peak Gradient 25 mmHg [facility] Peak Velocity 2.5 m/s [facility] Velocity Ratio 0.40 [facility] AV VTI 30.7 cm [facility] E/E' Lateral 14.71 [facility] E/E' Ratio (Averaged) 13.79 [facility] E/E' Septal 12.88 [facility] EF 3D 56 % [facility] Interpretation and review of laboratory results Abnormal [facility] IVC Proxmal 1.5 cm [facility] IVSd 1.5 cm Abnormal 0.6 - 0.9 cm [facility] LA Area 2C 18.6 cm2 [facility] LA Area 4C 22.3 cm2 [facility] LA Major Raiford 6.1 cm [facility] LA Minor Raiford 5.7 cm [facility] LA Volume BP 57 mL Abnormal 22 - 52 mL [facility] LA Volume MOD A2C 50 mL 22 - 52 mL [facility] LA Volume MOD A4C 64 mL Abnormal 22 - 52 mL [facility] [employer] LV E' Lateral Velocity 7 cm/s [facility] LV E' Septal Velocity 8 cm/s [facility] LV EDV 3D 114 mL [facility] LV ESV 3D 50 mL [facility] LV Mass 2D 160.1 g 67 - 162 g [facility] LV Mass 3D 163.0 g [facility] LV RWT Ratio 0.61 [facility] LVIDd 3.6 cm Abnormal 3.9 - 5.3 cm [facility] LVOT Mean Gradient 2 mmHg [facility] [employer] LVOT Peak Gradient [address] [facility] LVOT Peak Velocity 1.0 m/s [facility] LVOT VTI 15.3 cm [facility] LVOT:AV VTI Index 0.50 [facility] [employer] LVPWd 1.1 cm Abnormal 0.6 - 0.9 cm [facility] MV E Velocity 1.03 m/s [facility] MV E Wave Deceleration Time 164.0 ms [facility] MV Max Velocity 1.3 m/s [facility] [employer] MV Mean Gradient 2 mmHg [facility] [employer] MV Mean Velocity 0.7 m/s [facility] [employer] MV Peak Gradient 6 mmHg [facility] MV VTI 26.8 cm KARLO AGUIAR [employer] MV:LVOT VTI Index 1.75 [facility] PV Max Velocity 1.4 m/s KARLO YIPOU RS [employer] PV Peak Gradient 8 mmHg [facility] RV Basal Dimension 3.7 cm [facility] [employer] [facility] RV Free Wall Peak S' 12 cm/s KARLO AGUIAR [facility] TAPSE 2.1 cm 1.7 cm KARLO AGUIAR [employer] Left Ventricle: Normal left ventricular systolic function. EF 3D is 56%. Left ventricle size is normal. Normal wall thickness. Normal wall motion. Normal diastolic function. Aortic Valve: Mild sclerosis of the aortic valve cusp. Image quality is adequate. Left Ventricle Normal left ventricular systolic function. EF 3D is 56%. Left ventricle size is normal. Normal wall thickness. Normal wall motion. Normal diastolic function. Right Ventricle Right ventricle size is normal. Normal systolic function. Left Atrium Left atrium size is normal. Right Atrium Right atrium size is normal. IVC/SVC IVC diameter is less than or equal to 21 mm and decreases greater than 50% during inspiration; therefore the estimated right atrial pressure is normal (~3 mmHg). IVC size is normal. Mitral Valve Valve structure is normal. No regurgitation. No stenosis noted. Tricuspid Valve Valve structure is normal. Trace regurgitation. No stenosis noted. Aortic Valve Mild sclerosis of the aortic valve cusp. No regurgitation. No stenosis. Pulmonic Valve Valve structure is normal. Trace regurgitation. No stenosis noted. Ascending Aorta Normal sized aortic root and ascending aorta. Pericardium No pericardial effusion. Study Details Image quality: adequate. Color flow Doppler was performed and pulse wave and/or continuous wave Doppler was performed. No contrast was given. [facility] CV CPACS [facility] Glucose,Whole Bloodon 2023 Glucose [Mass/Vol] 284 mg/dL High 65-105 [facility] Glucose [Mass/Vol] 215 mg/dL High 65-105 [facility] Glucose [Mass/Vol] 202 mg/dL High 65-105 [facility] Glucose [Mass/Vol] 176 mg/dL High 65-105 [facility] POC Glucose Fingerstickon Glucose [Mass/Vol] 284 mg/dL High 65 - 105 mg/dL [facility] Interpretation and review of laboratory results Abnormal [facility] Glucose [Mass/Vol] 215 mg/dL High 65 - 105 mg/dL [facility] Interpretation and review of laboratory results Abnormal [facility] Glucose [Mass/Vol] 202 mg/dL High 65 - 105 mg/dL [facility] Interpretation and review of laboratory results Abnormal [facility] Glucose [Mass/Vol] 176 mg/dL High 65 - 105 mg/dL [facility] Interpretation and review of laboratory results Abnormal [facility] XR TOE LEFT (MIN 2 VIEWS)on 09-08-2023 [...] Zenon Light MD 09/08/23 Final result Normal [facility] XR Toes - left 2 Viewson Mildly impacted fracture of the distal 1st proximal phalanx. [facility] RIS CONSOLIDATED EXAMINATION: 3 XRAY VIEWS OF THE LEFT [...] bones are markedly osteopenic. Prominent vascular calcification. [facility] CONSOLIDATED Zenon Light MD - 09/08/2023 EXAMINATION: 3 XRAY VIEWS OF THE LEFT [...] fracture of the distal 1st proximal phalanx. [facility] Radiology Study observation (narrative) [facility] Basic Metab w/rfx MGon 09-06 Anion gap [Moles/Vol] 10 mmol/L Normal 9-16 [facility] Comment on above: Performed By: #### F YENY RAMOS, BNP #### [facility] [address] [place] [id number] Ekg/Ecg Technician: Giovany Patel MD Calcium [Mass/Vol] 10.2 mg/dL Normal 8.6-10.4 [facility] Comment on above: Performed By: #### F YENY RAMOS, BNP #### [facility] [address] [place] [address] Ekg/Ecg Technician: Giovany Patel MD Chloride [Moles/Vol] 98 mmol/L Normal 98-107 [facility] Comment on above: Performed By: #### F YENY RAMOS, BNP #### [facility] [address] [place] [address] Ekg/Ecg Technician: Giovany Patel MD CO2 [Moles/Vol] 34 mmol/L High 20-31 [facility] Comment on above: Performed By: #### F YENY RAMOS, BNP #### [facility] [place] [address] Ekg/Ecg Technician: Giovany Patel MD Creatinine [Mass/Vol] 0.6 mg/dL Normal 0.50-0.90 [facility] Comment on above: Performed By: #### F YENY RAMOS, BNP #### [facility] [address] [place] [address] Ekg/Ecg Technician: Giovany Patel MD GFR/1.73 sq M.predicted among non-blacks MDRD (S/P/Bld) [Vol rate/Area] mL/min/{1.73_m2} Normal >60 [facility] Comment on above: Result Comment: [...] By: #### F YENY RAMOS, BNP #### [facility] [address] [place] [address] Ekg/Ecg Technician: Giovany Patel MD Glucose [Mass/Vol] 146 mg/dL High 74-99 [facility] Comment on above: Performed By: #### F YENY RAMOS, BNP #### [facility] [address] [place] [phone] Ekg/Ecg Technician: Giovany Patel MD Potassium [Moles/Vol] 4.3 mmol/L Normal 3.7-5.3 [facility] Comment on above: Performed By: #### F YENY RAMOS, BNP #### [facility] [address] [place] [phone] Ekg/Ecg Technician: Giovany Patel MD Sodium [Moles/Vol] 142 mmol/L Normal 136-145 [facility] Comment on above: Performed By: #### F YENY RAMOS, BNP #### [facility] [address] [place], [place] [id number] Ekg/Ecg Technician: Giovany Patel MD Urea nitrogen [Mass/Vol] 16 mg/dL Normal 8-23 [facility] Comment on above: Performed By: #### F YENY RAMOS, BNP #### [facility] [address] [place] [address] Ekg/Ecg Technician: Giovany Patel MD Basic Metabolic Panel w/ Ref ny to MGon 09-07-2023 Anion gap [Moles/Vol] 10 mmol/L 9 - 16 mmol/L [facility] Calcium [Mass/Vol] 10.2 mg/dL 8.6 - 10. 4 mg/dL [facility] [employer] Chloride [Moles/Vol] 98 mmol/L 98 - 107 mmol/L [facility] [employer] CO2 [Moles/Vol] 34 mmol/L High 20 - 31 mmol/L [facility] [employer] Creatinine [Mass/Vol] 0.6 mg/dL 0.50 - 0.90 mg/dL [facility] Est, Neftali Lakhani Rate - PINF [facility] Comment on above: These results are not intended for use [...] following therapy that affects renal tubular secretion. Glucose [Mass/Vol] 146 mg/dL High 74 - 99 mg/dL [facility] Interpretation and review of laboratory results Abnormal [facility] Potassium [Moles/Vol] 4.3 mmol/L 3.7 - 5.3 mmol/L [facility] [employer] Sodium [Moles/Vol] 142 mmol/L 136 - 145 mmol/L [facility] [employer] Urea nitrogen [Mass/Vol] 16 mg/dL 8 - 23 mg/dL [facility] CBC with Auto Differentialon 09-07-2023 Basophils (Bld) [#/Vol] [facility] Basophils/100 WBC (Bld) 0 % 0 - 2 % [facility] Eosinophils (Bld) [#/Vol] 0.20 10*3/uL [facility] Eosinophils/100 WBC (Bld) 2 % 1 - 4 % [facility] Erythrocyte distribution width (RBC) [Ratio] 17.7 % High 11.8 - 14.4 % [facility] Hematocrit (Bld) [Volume fraction] 29.8 % Low 36.3 - 47.1 % [facility] Hemoglobin (Bld) [Mass/Vol] 8.8 g/dL Low 11.9 - 15.1 g/dL [facility] Immature granulocytes (Bld) [#/Vol] 0.12 10*3/uL [facility] Immature granulocytes/100 WBC (Bld) 1 % High 0 [facility] Interpretation and review of laboratory results Abnormal [facility] Lymphocytes/100 WBC (Bld) 11 % Low 24 - 43 % [facility] Lymphocytes/100 WBC (Bld) 1.23 % [facility] MCH (RBC) [Entitic mass] 29.3 pg 25.2 - 33.5 pg [facility] MCHC (RBC) [Mass/Vol] 29.5 g/dL 28.4 - 34.8 g/dL [facility] MCV (RBC) [Entitic vol] 99.3 fL 82.6 - 102.9 fL [facility] Monocytes/100 WBC (Bld) 7 % 3 - 12 % [facility] Monocytes/100 WBC (Bld) 0.74 % [facility] Neutrophils/100 WBC (Bld) 79 % High 36 - 65 % [facility] Nucleated RBC/100 WBC (Bld) [Ratio] 0.0 % 0.0 per 100 WBC [facility] Platelet mean volume (Bld) [Entitic vol] 8.9 fL 8.1 - 13.5 fL [facility] Platelets (Bld) [#/Vol] 333 10*3/uL [facility] RBC (Bld) [#/Vol] 3.00 10*6/uL Low 3.95 - 5.1 1 m/uL [facility] RBC (Bld) [#/Vol] ANISOCYTOSIS PRESENT [facility] Segmented neutrophils/100 WBC (Bld) 8.44 % High [facility] WBC other (Bld) [#/Vol] 10.8 [facility] CBC with Diffon 09-07-2023 Abs. Basophil <0.03 Normal 0.00-0.20 [facility] Comment on above: Performed By: #### F YENY RAMOS, BNP #### [facility] [address] [place] [address] Ekg/Ecg Technician: Giovany Patel MD Abs.Imm.Granulocyte 0.12 k/uL Normal 0.00-0.30 [facility] Comment on above: Performed By: #### YENY KNOX, BNP #### [facility] [address] [place] [address] Ekg/Ecg Technician: Giovany Patel MD Abs.Neutrophil (Seg) 8.44 k/uL High 1.50-8.10 [facility] Comment on above: Performed By: #### YENY KNOX, BNP #### [facility] [address] [place] [address] Ekg/Ecg Technician: Giovany Patel MD Basophils/100 WBC (Bld) 0 % Normal 0-2 [facility] Comment on above: Performed By: #### F YENY RAMOS, BNP #### [facility] [address] [place] [address] Ekg/Ecg Technician: Giovany Patel MD Eosinophils (Bld) [#/Vol] 0.20 10*3/uL Normal 0.00-0.44 [facility] Comment on above: Performed By: #### F YENY RAMOS, BNP #### [facility] [address] [place] [phone] Ekg/Ecg Technician: Giovany Patel MD Eosinophils/100 WBC (Bld) 2 % Normal 1-4 [facility] Comment on above: Performed By: #### F YENY RAMOS, BNP #### [facility] [address] [place] [phone] Ekg/Ecg Technician: Giovany Patel MD Erythrocyte distribution width (RBC) [Ratio] 17.7 % High 11.8-14.4 [facility] Comment on above: Performed By: #### F YENY RAMOS, BNP #### [facility] [address] [place] [address] Ekg/Ecg Technician: Giovany Patel MD Hematocrit (Bld) [Volume fraction] 29.8 % Low 36.3-47.1 [facility] Comment on above: Performed By: #### F YENY RAMOS, BNP #### [facility] [address] [place] [phone] Ekg/Ecg Technician: Giovany Patel MD Hemoglobin (Bld) [Mass/Vol] 8.8 g/dL Low 11.9-15.1 [facility] Comment on above: Performed By: #### F YENY RAMOS, BNP #### [facility] [address] [place] [address] Ekg/Ecg Technician: Giovany Patel MD Immature granulocytes/100 WBC (Bld) 1 % High 0 [facility] Comment on above: Performed By: #### F RICHARDVIPUL LozaBC, BNP #### [facility] [address] [place] [phone] Ekg/Ecg Technician: Giovany Patel MD Lymphocytes (Bld) [#/Vol] 1.23 10*3/uL Normal 1.10-3.70 [facility] Comment on above: Performed By: #### F VIPUL RAMOSBC, BNP #### [facility] [address] [place] [address] Ekg/Ecg Technician: Giovany Patel MD Lymphocytes/100 WBC (Bld) 11 % Low 24-43 [facility] Comment on above: Performed By: #### F RICHARD, FEBC, BNP #### [address] [address] Ekg/Ecg Technician: Giovany Patel MD MCH (RBC) [Entitic mass] 29.3 pg Normal 25.2-33.5 [facility] Comment on above: Performed By: #### F RICHARDYENY Loza, BNP #### [address] [address] Ekg/Ecg Technician: Giovany Patel MD MCHC (RBC) [Mass/Vol] 29.5 g/dL Normal 28.4-34.8 [facility] Comment on above: Performed By: #### F RICHARD, FEBC, BNP #### [address] [address] Ekg/Ecg Technician: Giovany Patel MD MCV (RBC) [Entitic vol] 99.3 fL Normal 82.6-102.9 [facility] Comment on above: Performed By: #### F RICHARDVIPUL LozaBC, BNP #### [address] [address] Ekg/Ecg Technician: Giovany Patel MD Monocytes (Bld) [#/Vol] 0.74 10*3/uL Normal 0.10-1.20 [facility] Comment on above: Performed By: #### F RICHARDVIPUL LozaBC, BNP #### [address] [address] Ekg/Ecg Technician: Giovany Patel MD Monocytes/100 WBC (Bld) 7 % Normal 3-12 [facility] Comment on above: Performed By: #### F RICHARD, FEBC, BNP #### [address] [address] Ekg/Ecg Technician: Giovany Patel MD Neutrophil (Seg) 79 % High 36-65 [facility] Comment on above: Performed By: #### F VIPUL RAMOSBC, BNP #### [address] [address] Ekg/Ecg Technician: Giovany Patel MD NRBC Automated 0.0 per 100 WBC Normal 0.0 [facility] Comment on above: Performed By: #### F YENY RAMOS, BNP #### [address] [address] Ekg/Ecg Technician: Giovany Patel MD Platelet mean volume (Bld) [Entitic vol] 8.9 fL Normal 8.1-13.5 [facility] Comment on above: Performed By: #### F YENY RAMOS, BNP #### [address] [address] Ekg/Ecg Technician: Giovany Patel MD Platelets (Bld) [#/Vol] 333 10*3/uL Normal 138-453 [facility] Comment on above: Performed By: #### F YENY RAMOS, BNP #### [address] [address] Ekg/Ecg Technician: Giovany Patel MD RBC (Bld) [#/Vol] 3.00 10*6/uL Low 3.95-5.11 [facility] Comment on above: Performed By: #### F YENY RAMOS, BNP #### [address] [address] Ekg/Ecg Technician: Giovany Patel MD RBC morphology finding Nom (Bld) ANISOCYTOSIS PRESENT Normal [facility] Comment on above: Performed By: #### F YENY RAMOS, BNP #### [address] [address] Ekg/Ecg Technician: Giovany Patel MD WBC (Bld) [#/Vol] 10.8 10*3/uL Normal 3.5-11.3 [facility] Comment on above: Performed By: #### F RICHARD, FEBC, BNP #### [facility] [address] [place] [address] Ekg/Ecg Technician: Giovany Patel MD Cardiac echo study Procedure on 09-07-2023 Radiology Study observation (narrative) [facility] EKG 12 Lead (Abn HR)Ordered By: Josh Lorenzo on 09-07-2023 Atrial Rate 65 BPM [facility] Work Phone: Q-T Interval 308 ms [facility] Work Phone: QRS Duration 82 ms [employer] Phone: QTc Calculation (Bazett) 317 ms [facility] Work Phone: R Raiford -7 degrees [facility] Work Phone: T Raiford -150 degrees [facility] Work Phone: Ventricular Rate 64 BPM [facility] [employer] Work Phone: [facility] Work Phone: EKG 12 Lead (Abn HR)on 09-[address] and T wave abnormality Abnormal ECG When compared with ECG of 28-APR-2001 05:14, Current undetermined rhythm precludes rhythm comparison, needs review ST now depressed in Anterior leads Nonspecific T wave abnormality now evident in Inferior leads Nonspecific T wave abnormality, worse in Anterolateral leads QT has shortened [facility] Josh Valdivia MD - 09/07/2023 Undetermined rhythm Nonspecific ST and T wave abnormality Abnormal ECG When compared with ECG of 28-APR-2001 05:14, Current undetermined rhythm precludes rhythm comparison, needs review ST now depressed in Anterior leads Nonspecific T wave abnormality now evident in Inferior leads Nonspecific T wave abnormality, worse in Anterolateral leads QT has shortened [facility] Glucose,Whole Bloodon 2023 Glucose [Mass/Vol] 280 mg/dL High 65-105 [facility] Glucose [Mass/Vol] 199 mg/dL High 65-105 [facility] Glucose [Mass/Vol] 173 mg/dL High 65-105 [facility] Glucose [Mass/Vol] 141 mg/dL High 65-105 [facility] Microscopic Urinalysison Bacteria LM Ql (Urine sed) None None [facility] Casts LM.LPF (Urine sed) [#/Area] 0 TO 2 HYALINE Reference range defined for non-centrifuged specimen. [facility] Epithelial cells LM.HPF (Urine sed) [#/Area] None [facility] RBC LM.HPF (Urine sed) [#/Area] None [facility] Comment on above: Reference range defi barrington for non-centrifuged specimen. WBC LM.HPF (Urine sed) [#/Area] 2 TO 5 [facility] POC Glucose Fingerstickon Glucose [Mass/Vol] 280 mg/dL High 65 - 105 mg/dL [facility] Interpretation and review of laboratory results Abnormal [facility] Glucose [Mass/Vol] 199 mg/dL High 65 - 105 mg/dL [facility] Interpretation and review of laboratory results Abnormal [facility] Glucose [Mass/Vol] 173 mg/dL High 65 - 105 mg/dL [facility] Interpretation and review of laboratory results Abnormal [facility] Glucose [Mass/Vol] 141 mg/dL High 65 - 105 mg/dL [facility] Interpretation and review of laboratory results Abnormal [facility] UA w/Reflex Cultureon 2023 Bilirubin, SemiQt,Ur Negative Normal NEG [facility] Comment on above: Performed By: #### U MICAMert, UAX #### [facility] [employer] [address] [place] [address] Ekg/Ecg Technician: Giovany Patel MD Blood, Urine Negative Normal NEG [facility] Comment on above: Performed By: #### U MICAO, UAX #### [address] [address] Ekg/Ecg Technician: Giovany Patel MD Clarity (U) Clear Normal CLEAR [facility] Comment on above: Performed By: #### U MICAO, UAX #### [facility] [address] [place] [address] Ekg/Ecg Technician: Giovany Patel MD Color (U) Yellow Normal YEL [facility] Comment on above: Performed By: #### U MICAO, UAX #### [facility] [address] [place] [address] Ekg/Ecg Technician: Giovany Patel MD Glucose Ql (U) Negative Normal NEG [facility] Comment on above: Performed By: #### U MICAO, UAX #### [address] [address] Ekg/Ecg Technician: Giovany Patel MD Ketones Ql (U) Negative Normal NEG [facility] Comment on above: Performed By: #### U MICAO, UAX #### [address] [address] Ekg/Ecg Technician: Giovany Patel MD Leukocyte esterase Test strip Ql (U) SMALL Abnormal NEG [facility] Comment on above: Performed By: #### U MICAO, UAX #### [address] [address] Ekg/Ecg Technician: Giovany Patel MD Nitrite,Ur Negative Normal NEG [facility] Comment on above: Performed By: #### U MICAO, UAX #### [address] [address] Ekg/Ecg Technician: Giovany Patel MD PH,Ur 5.0 Normal 5.0-8.0 [facility] Comment on above: Performed By: #### U CORINNEO, UAX #### [facility] [place] [address] Ekg/Ecg Technician: Giovany Patel MD Protein Ql (U) Negative Normal NEG [facility] Comment on above: Performed By: #### U CORINNEO, UAX #### [facility] [place], [place] [phone] Ekg/Ecg Technician: Giovany Patel MD Spec. [place],Ur 1.016 Normal 1.005-1.030 [facility] Comment on above: Performed By: #### U MARTÍN, UAX #### [facility] [address] [place] [phone] Ekg/Ecg Technician: Giovany Patel MD Urobilinogen,Ur Normal Normal 0.0-1.0 [facility] Comment on above: Performed By: #### U CORINNEO, UAX #### [facility] [address] [place] [phone] Ekg/Ecg Technician: Giovany Patel MD Urinalysis with Reflex to Cu ltureon 09-07-2023 Bilirubin Ql (U) Negative NEGATIVE Everywun [facility] Triplify Clarity (U) Clear Clear [facility] Color (U) Yellow Yellow Everywun [facility] [employer] [facility] [employer] Glucose Test strip (U) [Mass/Vol] Negative NEGATIVE mg/dL [employer] SEC[address] [employer] [facility] Hemoglobin Auto test strip Ql (U) Negative NEGATIVE Everywun [facility]121 [employer] [facility] Interpretation and review of laboratory results Abnormal [facility] [employer] [facility] Ketones (U) [Mass/Vol] Negative NEGATIVE mg/dL Everywun [facility]121 [employer] [facility] Leukocyte esterase Test strip Ql (U) SMALL Abnormal NEGATIVE Everywun SEC[address] [employer] [facility] Nitrite Ql (U) Negative NEGATIVE BON [facility] pH (U) 5.0 [pH] 5.0 - 8.0 [facility] SEC[address] [employer] [facility] Protein (U) [Mass/Vol] Negative NEGATIVE mg/dL Everywun [facility] [place] [facility] Specific gravity (U) [Rel density] 1.016 1.005 - 1.030 [facility] Urobilinogen Qn (U) Normal 0.0 - 1. 0 EU/dL [facility] Urinalysis,Microon 4 Bacteria None Normal NONE [facility] Comment on above: Performed By: #### U CORINNEO, UAX #### [facility] [employer] [address] [place] [phone] Ekg/Ecg Technician: Giovany Patel MD Casts 0 TO 2 HYALINE Normal 0-8 [facility] Comment on above: Result Comment: Refe rence range defined for non-centrifuged specimen. Performed By: #### U CORINNEO, UAX #### [facility] [employer] [address] [place] [phone] Ekg/Ecg Technician: Giovany Patel MD Epithelial cells LM Ql (Urine sed) None Normal 0-5 [facility] Comment on above: Performed By: #### U CORINNEO, UAX #### [facility] [address] [place] [address] Ekg/Ecg Technician: Giovany Patel MD Urine RBC's None Normal 0-4 [facility] Comment on above: Result Comment: Refe rence range defined for non-centrifuged specimen. Performed By: #### U CORINNEO, UAX #### [facility] [address] [place] [phone] Ekg/Ecg Technician: Giovany Patel MD Urine WBC's 2 TO 5 Normal 0-5 [facility] Comment on above: Performed By: #### U MICAO, UAX #### [facility] [employer] [address] [place] [phone] Ekg/Ecg Technician: Giovany Ptael MD BMPon 09-06-2023 Anion gap [Moles/Vol] 10 mmol/L 9 - 16 mmol/L [facility] [employer] Calcium [Mass/Vol] 9.8 mg/dL 8.6 - 10. 4 mg/dL [facility] Chloride [Moles/Vol] 96 mmol/L Low 98 - 107 mmol/L [facility] CO2 [Moles/Vol] 34 mmol/L High 20 - 31 mmol/L [facility] Creatinine [Mass/Vol] 0.6 mg/dL 0.50 - 0.90 mg/dL [facility] EstNeftali Rate - PINF [facility] Comment on above: These results are not intended for use [...] following therapy that affects renal tubular secretion. Glucose [Mass/Vol] 119 mg/dL High 74 - 99 mg/dL [facility] Interpretation and review of laboratory results Abnormal [facility] Potassium [Moles/Vol] 5.2 mmol/L 3.7 - 5.3 mmol/L [facility] Sodium [Moles/Vol] 140 mmol/L 136 - 145 mmol/L [facility] Urea nitrogen [Mass/Vol] 21 mg/dL 8 - 23 mg/dL [facility] Basic Metabolic Panelon - Anion gap [Moles/Vol] 8 mmol/L Low 9 - 16 mmol/L [facility] Calcium [Mass/Vol] 9.1 mg/dL 8.6 - 10. 4 mg/dL [facility] Chloride [Moles/Vol] 96 mmol/L Low 98 - 107 mmol/L [facility] CO2 [Moles/Vol] 35 mmol/L High 20 - 31 mmol/L [facility] Creatinine [Mass/Vol] 0.5 mg/dL 0.50 - 0.90 mg/dL [facility] Est, Neftali Amayarojas Rate - PINF [facility] Comment on above: These results are not intended for use [...] following therapy that affects renal tubular secretion. Glucose [Mass/Vol] 123 mg/dL High 74 - 99 mg/dL [facility] Interpretation and review of laboratory results Abnormal [facility] Potassium [Moles/Vol] 4.4 mmol/L 3.7 - 5.3 mmol/L [facility] Sodium [Moles/Vol] 139 mmol/L 136 - 145 mmol/L [facility] Urea nitrogen [Mass/Vol] 18 mg/dL 8 - 23 mg/dL [facility] Basic Metabolic Profon 09-05 Anion gap [Moles/Vol] 8 mmol/L Low 9-16 [facility] Comment on above: Performed By: #### U MARTÍN UAX #### [facility] [address] [place] [phone] Ekg/Ecg Technician: Giovany Patel MD Calcium [Mass/Vol] 9.1 mg/dL Normal 8.6-10.4 [facility] Comment on above: Performed By: #### U MARTÍN UAX #### [facility] [address] [place] [phone] Ekg/Ecg Technician: Giovany Patel MD Chloride [Moles/Vol] 96 mmol/L Low 98-107 [facility] Comment on above: Performed By: #### U MARTÍN UAX #### [facility] [address] [place] [address] Ekg/Ecg Technician: Giovany Patel MD CO2 [Moles/Vol] 35 mmol/L High 20-31 [facility] Comment on above: Performed By: #### U CORINNEO, UAX #### [facility] [address] [place] [address] Ekg/Ecg Technician: Giovany Patel MD Creatinine [Mass/Vol] 0.5 mg/dL Normal 0.50-0.90 [facility] Comment on above: Performed By: #### U MARTÍN UAX #### [address] [address] Ekg/Ecg Technician: Giovany Patel MD GFR/1.73 sq M.predicted among non-blacks MDRD (S/P/Bld) [Vol rate/Area] mL/min/{1.73_m2} Normal >60 [facility] Comment on above: Result Comment: [...] Performed By: #### Michelle RESENDIZ UAX #### [address] [address] Ekg/Ecg Technician: Giovany Patel MD Glucose [Mass/Vol] 123 mg/dL High 74-99 [facility] Comment on above: Performed By: #### Michelle RESENDIZ UAX #### [address] [address] Ekg/Ecg Technician: Giovany Patel MD Potassium [Moles/Vol] 4.4 mmol/L Normal 3.7-5.3 [facility] Comment on above: Performed By: #### U MARTÍN UAX #### [facility] [employer] [address] [place] [address] Ekg/Ecg Technician: Giovany Patel MD Sodium [Moles/Vol] 139 mmol/L Normal 136-145 [facility] Comment on above: Performed By: #### U MARTÍN, UAX #### [facility] [employer] [address] [place] [phone] Ekg/Ecg Technician: Giovany Patel MD Urea nitrogen [Mass/Vol] 18 mg/dL Normal 8-23 [facility] Comment on above: Performed By: #### U MICAO, UAX #### [address] [address] Ekg/Ecg Technician: Giovany Patel MD Anion gap [Moles/Vol] 10 mmol/L Normal 9-16 [facility] Comment on above: Performed By: #### B MP, TROPI #### [facility] [address] [place] [address] Ekg/Ecg Technician: Giovany Patel MD Calcium [Mass/Vol] 9.8 mg/dL Normal 8.6-10.4 [facility] Comment on above: Performed By: #### B MP, TROPI #### [facility] [employer] [address] [place] [phone] Ekg/Ecg Technician: Giovany Patel MD Chloride [Moles/Vol] 96 mmol/L Low 98-107 [facility] Comment on above: Performed By: #### B MP, TROPI #### [facility] [employer] [address] [place] [phone] Ekg/Ecg Technician: Giovany Patel MD CO2 [Moles/Vol] 34 mmol/L High 20-31 [facility] Comment on above: Performed By: #### B MP, TROPI #### [facility] [employer] [address] [place] [phone] Ekg/Ecg Technician: Giovany Patel MD Creatinine [Mass/Vol] 0.6 mg/dL Normal 0.50-0.90 [facility] Comment on above: Performed By: #### B MP, TROPI #### [facility] [employer] [address] [place] [phone] Ekg/Ecg Technician: Giovany Patel MD GFR/1.73 sq M.predicted among non-blacks MDRD (S/P/Bld) [Vol rate/Area] mL/min/{1.73_m2} Normal >60 [facility] Comment on above: Result Comment: [...] Performed By: #### B PONCHO, TROPI #### [employer] [address] [place] [phone] Ekg/Ecg Technician: Giovany Patel MD Glucose [Mass/Vol] 119 mg/dL High 74-99 [facility] Comment on above: Performed By: #### B PONCHO, TROPI #### [facility] [address] [place] [address] Ekg/Ecg Technician: Giovany Patel MD Potassium [Moles/Vol] 5.2 mmol/L Normal 3.7-5.3 [facility] Comment on above: Performed By: #### B PONCHO, TROPI #### [facility] [address] [place] [address] Ekg/Ecg Technician: Giovany Patel MD Sodium [Moles/Vol] 140 mmol/L Normal 136-145 [facility] Comment on above: Performed By: #### B PONCHO, TROPI #### [facility] [address] [place] [address] Ekg/Ecg Technician: Giovany Patel MD Urea nitrogen [Mass/Vol] 21 mg/dL Normal 8-23 [facility] Comment on above: Performed By: #### B PONCHO, TROPI #### [facility] [address] [place] [phone] Ekg/Ecg Technician: Giovany Patel MD Brain Natri. Peptideon 09-05 Natriuretic peptide B (Bld) [Mass/Vol] 2721 pg/mL High 0-300 [facility] Comment on above: Result Comment: An a ge-independent cutoff point of 300 pg/ml has a 98% negative predictive value excluding acute heart failure. Performed By: #### F RICHARD, FEBC, BNP #### [facility] [address] [place] [address] Ekg/Ecg Technician: Giovany Patel MD Brain Natriuretic Peptideon 09-06-2023 Natriuretic peptide B (Bld) [Mass/Vol] 2721 pg/mL High 0 - 300 pg/mL [facility] Comment on above: An age-independent c utoff point of 300 pg/ml has a 98% negative predictive value excluding acute heart failure. CBCon 09-06-2023 Erythrocyte distribution width (RBC) [Ratio] 17.7 % High 11.8 - 14.4 % [facility] Hematocrit (Bld) [Volume fraction] 27.7 % Low 36.3 - 47.1 % [facility] Hemoglobin (Bld) [Mass/Vol] 8.3 g/dL Low 11.9 - 15.1 g/dL [facility] Interpretation and review of laboratory results Abnormal [facility] MCH (RBC) [Entitic mass] 29.9 pg 25.2 - 33.5 pg [facility] MCHC (RBC) [Mass/Vol] 30.0 g/dL 28.4 - 34.8 g/dL [facility] MCV (RBC) [Entitic vol] 99.6 fL 82.6 - 102.9 fL [facility] Nucleated RBC/100 WBC (Bld) [Ratio] 0.0 % 0.0 per 100 WBC [facility] Platelet mean volume (Bld) [Entitic vol] 8.9 fL 8.1 - 13.5 fL [facility] Platelets (Bld) [#/Vol] 341 10*3/uL [facility] RBC (Bld) [#/Vol] 2.78 10*6/uL Low 3.95 - 5.1 1 m/uL [facility] WBC other (Bld) [#/Vol] 12.6 High [facility] Erythrocyte distribution width (RBC) [Ratio] 17.7 % High 11.8-14.4 [facility] Comment on above: Performed By: #### C BC #### [address] [address] Ekg/Ecg Technician: Giovany Patel MD Hematocrit (Bld) [Volume fraction] 27.7 % Low 36.3-47.1 [facility] Comment on above: Performed By: #### C BC #### [address] [address] Ekg/Ecg Technician: Giovany Patel MD Hemoglobin (Bld) [Mass/Vol] 8.3 g/dL Low 11.9-15.1 [facility] Comment on above: Performed By: #### C BC #### [address] [address] Ekg/Ecg Technician: Giovany Patel MD MCH (RBC) [Entitic mass] 29.9 pg Normal 25.2-33.5 [facility] Comment on above: Performed By: #### C BC #### [address] [address] Ekg/Ecg Technician: Giovany Patel MD MCHC (RBC) [Mass/Vol] 30.0 g/dL Normal 28.4-34.8 [facility] Comment on above: Performed By: #### C BC #### [address] [address] Ekg/Ecg Technician: Giovany Patel MD MCV (RBC) [Entitic vol] 99.6 fL Normal 82.6-102.9 [facility] Comment on above: Performed By: #### C BC #### [address] [address] Ekg/Ecg Technician: Giovany Patel MD NRBC Automated 0.0 per 100 WBC Normal 0.0 [facility] Comment on above: Performed By: #### C BC #### [address] [address] Ekg/Ecg Technician: Giovany Patel MD Platelet mean volume (Bld) [Entitic vol] 8.9 fL Normal 8.1-13.5 [facility] Comment on above: Performed By: #### C BC #### [address] [address] Ekg/Ecg Technician: Giovany Patel MD Platelets (Bld) [#/Vol] 341 10*3/uL Normal 138-453 [facility] Comment on above: Performed By: #### C BC #### [address] [address] Ekg/Ecg Technician: Giovany Patel MD RBC (Bld) [#/Vol] 2.78 10*6/uL Low 3.95-5.11 [facility] Comment on above: Performed By: #### C BC #### [address] [address] Ekg/Ecg Technician: Giovany Patel MD WBC (Bld) [#/Vol] 12.6 10*3/uL High 3.5-11.3 [facility] Comment on above: Performed By: #### C BC #### [address] [address] Ekg/Ecg Technician: Giovany Patel MD Ferritinon 09-06-2023 Ferritin [Mass/Vol] 380 ng/mL High 13 - 150 ng/mL [facility] Comment on above: No reference range e stablished for this age/gender. Ferritin [Mass/Vol] 380 ng/mL High 13-150 [facility] Comment on above: Result Comment: No r eference range established for this age/gender. Performed By: #### F RICHARD, FEBC, BNP #### [address] [address] Ekg/Ecg Technician: Giovany Patel MD Glucose,Whole Bloodon 2023 Glucose [Mass/Vol] 112 mg/dL High 65-105 [facility] Iron Binding Cap.on 09-06-19 24 % Fe Saturation 11 % Low 20-55 [facility] Comment on above: Performed By: #### F RICHARD, FEBC, BNP #### [facility] [address] [place] [address] Ekg/Ecg Technician: Giovany Patel MD Iron [Mass/Vol] 24 ug/dL Low 37-145 [facility] Comment on above: Performed By: #### F RICHARD, FEBC, BNP #### [facility] [address] [place], [place] [id number] Ekg/Ecg Technician: Giovany Patel MD Total Fe Binding Cap 209 ug/dL Low 250-450 [facility] Comment on above: Performed By: #### F RICHARD, FEBC, BNP #### [facility] [place], [place] [id number] Ekg/Ecg Technician: Giovany Patel MD Unbound Fe Bind Cap 185 ug/dL Normal 112-347 [facility] Comment on above: Performed By: #### F RICHARD, FEBC, BNP #### [facility] [address] [place] [id number] Ekg/Ecg Technician: Giovany Patel MD Iron and TIBCon 09-06-2023 Iron [Mass/Vol] 24 ug/dL Low 37 - 145 ug/dL [facility] [employer] [facility] [employer] Iron binding capacity [Mass/Vol] 209 ug/dL Low 250 - 450 ug/dL [facility] [employer] [facility] [employer] Iron saturation [Mass fraction] 11 % Low 20 - 55 % [facility] [employer] [facility] [employer] UIBC 185 ug/dL 112 - 347 ug/dL [facility] [employer] [facility] [employer] No Panel Informationon 09-05 [facility] [employer] [facility] [employer] Interpretation and review of laboratory results Abnormal [facility] [employer] [facility] [employer] [facility] Glucose Fingerstickon Glucose [Mass/Vol] 112 mg/dL High 65 - 105 mg/dL [facility] [employer] [facility] [employer] Interpretation and review of laboratory results Abnormal [facility] Portable XR Chest AP single viewon 09-06-2023 Multifocal opacification, possibly multifocal pneumonia, ARDS or edema. Left-sided volume loss with possible effusion. [facility] EXAMINATION: ONE XRAY VIEW OF THE CHEST [...] the left with possible effusion. No pneumothorax. [facility] Zenon Light MD - 09/06/2023 EXAMINATION: ONE XRAY VIEW OF THE CHEST [...] edema. Left-sided volume loss with possible effusion. [facility] Radiology Study observation (narrative) [facility] Portable XR Chest AP single viewOrdered By: Zenon Light on 09-06-2023 [facility] Work Phone: Procalcitoninon 09-06-2023 Procalcitonin [Mass/Vol] 0.08 ng/mL 0.00 - 0.09 ng/mL [facility] Comment on above: Suspected Sepsis: <0.50 ng/mL Low likelihood of [...] entered into the Change in Procalcitonin Calculator (www.unmfqi-xst-dsotpezquv.GeoMe) to determine the patient's Mortality Risk Prognosis In healthy neonates, plasma Procalcitonin (PCT) concentrations increase gradually after , reaching peak values at about 24 hours of age then decrease to normal values below 0.5 ng/mL by 48-72 hours of age. Procalcitonin 0.08 ng/mL Normal 0.00-0.09 [facility] Comment on above: Result Comment: [...] entered into the Change in Procalcitonin Calculator (www.sonyct-kfh-woywbeykpj.GeoMe) to determine the patient's Mortality Risk Prognosis In healthy neonates, plasma Procalcitonin (PCT) concentrations increase gradually after , reaching peak values at about 24 hours of age then decrease to normal values below 0.5 ng/mL by 48-72 hours of age. Performed By: #### U MICAO, UAX #### [facility] [place] [address] Ekg/Ecg Technician: Giovany Patel MD Troponinon 09-06-2023 Interpretation and review of laboratory results Abnormal [facility] Troponin I.cardiac High sensitivity method [Mass/Vol] 20 ng/L High 0 - 14 ng/L [facility] Comment on above: High Sensitivity Tro ponin values cannot be compared with other Troponin methodologies. Troponin, High Sens 20 ng/L High 0-14 [facility] Comment on above: Result Comment: High Sensitivity Troponin values cannot be compared with other Troponin methodologies. Performed By: #### U MARTÍN, UAX #### [facility] [address] [place], [place] [id number] Ekg/Ecg Technician: Giovany Patel MD Interpretation and review of laboratory results Abnormal [facility] Troponin I.cardiac High sensitivity method [Mass/Vol] 21 ng/L High 0 - 14 ng/L [facility] Comment on above: High Sensitivity Tro ponin values cannot be compared with other Troponin methodologies. [facility] Troponin, High Sens 21 ng/L High 0-14 [facility] Comment on above: Result Comment: High Sensitivity Troponin values cannot be compared with other Troponin methodologies. Performed By: #### U MARTÍN UAX #### [facility] [address] [place] [address] Ekg/Ecg Technician: Giovany Patel MD XR CHEST PORTABLEon 09-06-19 [...] Zenon Light MD 09/06/23 Final result Normal [facility] BNPon 02-26-2022 Natriuretic peptide B (Bld) [Mass/Vol] 3520.0 pg/mL Critically high <=1,800.0 [facility] Comment on above: Performed By: #### C MP, BNP #### [facility] [address] [address] [address] Yisel Liu CBC AUTO DIFFon 02-26-2022 BASO # 0.0 103/ul Normal 0.0-0.1 [facility] Comment on above: Performed By: #### C BC #### [facility] [address] [place] [address] Dr. Yisel Liu Basophils/100 WBC (Bld) 0.1 % Critically low 0.2-2.0 [facility] Comment on above: Performed By: #### C BC #### [facility] [address] [place] [address] Dr. Yisel Liu EO # 0.0 103/ul Normal 0.0-0.7 [facility] Comment on above: Performed By: #### C BC #### [facility] [address] [place] [address] Dr. Yisel Liu Eosinophils/100 WBC (Bld) 0.0 % Critically low 0.9-7.0 [facility] Comment on above: Performed By: #### C BC #### [facility] [address] [place] [address] Dr. Yisel Liu Erythrocyte distribution width (RBC) [Ratio] 16.6 % Critically high 11.0-15.0 [facility] Comment on above: Performed By: #### C BC #### [facility] [address] [place] [address] Dr. Yisel Liu Hematocrit (Bld) [Volume fraction] 36.2 % Normal 36.0-48.0 [facility] Comment on above: Performed By: #### C BC #### [facility] [address] [place] [address] Dr. Yisel Liu Hemoglobin (Bld) [Mass/Vol] 11.1 g/dL Critically low 12.0-16.0 [facility] Comment on above: Performed By: #### C BC #### [facility] [address] [place] [address] Dr. Yisel Liu IG # 0.14 10e3/ul Critically high 0.00-0.03 [facility] Comment on above: Performed By: #### C BC #### [facility] [address] [place] [address] Dr. Yisel Liu IG % 1.0 % Critically high 0.0-0.5 [facility] Comment on above: Performed By: #### C BC #### [facility] [address] [place] [address] Dr. Yisel Liu LYMPH # 0.8 103/ul Critically low 1.2-3.8 [facility] Comment on above: Performed By: #### C BC #### [facility] [address] [place] [address] Dr. Yisel Liu Lymphocytes/100 WBC (Bld) 5.9 % Critically low 20.5-60.0 [facility] Comment on above: Performed By: #### C BC #### [facility] [address] [place] [address] Dr. Yisel Liu MANUAL DIFF REQ NO Normal [facility] Comment on above: Performed By: #### C BC #### [facility] [address] [place] [address] Dr. Yisel Liu MCH (RBC) [Entitic mass] 28.0 pg Normal 26.7-34.0 [facility] Comment on above: Performed By: #### C BC #### [facility] [address] [place] [address] Dr. Yisel Liu MCHC (RBC) [Mass/Vol] 30.7 g/dL Normal 29.9-35.2 [facility] Comment on above: Performed By: #### C BC #### [facility] [address] [place] [address] Dr. Yisel Liu MCV (RBC) [Entitic vol] 91.2 fL Normal 81.0-99.0 [facility] Comment on above: Performed By: #### C BC #### [facility] [address] [place] [address] Dr. Yisel Liu MONO # 1.0 103/ul Critically high 0.3-0.8 [facility] Comment on above: Performed By: #### C BC #### [facility] [address] [place] [address] Dr. Yisel Liu Monocytes/100 WBC (Bld) 7.6 % Normal 1.7-12.0 [facility] Comment on above: Performed By: #### C BC #### [facility] [address] [address] [address] Yisel Liu NEUT # 11.4 103/ul Critically high 1.4-6.5 [facility] Comment on above: Performed By: #### C BC #### [facility] [address] [address] [address] Yisel Liu Neutrophils/100 WBC (Bld) 85.4 % Critically high 43.0-75.0 [facility] Comment on above: Performed By: #### C BC #### [facility] [address] [place] [address] Dr. Yisel Liu Platelet mean volume (Bld) [Entitic vol] 8.8 fL Critically low 9.5-13.5 [facility] Comment on above: Performed By: #### C BC #### [facility] [address] [address] [address] Yisel Liu PLT 325 103/ul Normal 150-450 [facility] Comment on above: Performed By: #### C BC #### [facility] [address] [place] [address] Dr. Yisel Liu RBC 3.97 106/ul Critically low 4.20-5.40 [facility] Comment on above: Performed By: #### C BC #### [facility] [address] [place] [address] Dr. Yisel Liu WBC 13.4 103/ul Critically high 4.0-11.0 [facility] Comment on above: Performed By: #### C BC #### [facility] [address] [address] [address] Yisel Liu PROF 14(COMP METB)on 022 Albumin [Mass/Vol] 2.7 g/dL Critically low 3.4-5.0 [facility] Comment on above: Performed By: #### C MP, BNP #### [facility] [address] [place] [address] Dr. Yisel Liu Albumin/Globulin [Mass ratio] 0.6 {ratio} Normal [facility] Comment on above: Performed By: #### C MP, BNP #### [facility] [address] [place] [address] Dr. Yisel Liu ALP [Catalytic activity/Vol] 49 U/L Normal 46-116 [facility] Comment on above: Performed By: #### C MP, BNP #### [facility] [address] [place] [address] Dr. Yisel Liu ALT [Catalytic activity/Vol] 28 U/L Normal 14-59 [facility] Comment on above: Performed By: #### C MP, BNP #### [facility] [address] [place] [address] Dr. Yisel Liu Anion gap [Moles/Vol] 10.9 mmol/L Normal [facility] Comment on above: Performed By: #### C MP, BNP #### [facility] [address] [place] [address] Dr. Yisel Liu AST [Catalytic activity/Vol] 29 U/L Normal 15-37 [facility] Comment on above: Performed By: #### C MP, BNP #### [facility] [address] [place] [address] Dr. Yisel Liu Bilirubin [Mass/Vol] 0.5 mg/dL Normal 0.2-1.0 [facility] Comment on above: Performed By: #### C MP, BNP #### [facility] [address] [place] [address] Dr. Yisel Liu Calcium [Mass/Vol] 9.7 mg/dL Normal 8.5-10.1 [facility] Comment on above: Performed By: #### C MP, BNP #### [facility] [address] [place] [address] Dr. Yisel Liu Chloride [Moles/Vol] 97 mmol/L Critically low 98-107 [facility] Comment on above: Performed By: #### C MP, BNP #### [facility] [address] [place] [address] Dr. Yisel Liu CO2 [Moles/Vol] 38.5 mmol/L Critically high 21.0-32.0 [facility] Comment on above: Performed By: #### C MP, BNP #### [facility] [address] [place] [address] Dr. Yisel Liu Creatinine [Mass/Vol] 1.67 mg/dL Critically high 0.55-1.02 [facility] Comment on above: Performed By: #### C MP, BNP #### [facility] [address] [address] [address] Yisel Liu EGFR-AF MALAGASY 36 mL/min/1.73m2 Critically low >=60 [facility] Comment on above: Performed By: #### C MP, BNP #### [facility] [address] [place] [address] Dr. Yisel Liu EGFR-NON AF MALAGASY 30 mL/min/1.73m2 Critically low >=60 [facility] Comment on above: Performed By: #### C MP, BNP #### [facility] [address] [place] [address] Dr. Yisel Liu Globulin (S) [Mass/Vol] 4.8 g/dL Normal [facility] Comment on above: Performed By: #### C MP, BNP #### [facility] [address] [place] [address] Dr. Yisel Liu Glucose [Mass/Vol] 159 mg/dL Critically high 74-106 [facility] Comment on above: Performed By: #### C MP, BNP #### [facility] [address] [place] [address] Dr. Yisel Liu Potassium [Moles/Vol] 5.4 mmol/L Critically high 3.5-5.1 [facility] Comment on above: Performed By: #### C MP, BNP #### [facility] [address] [place] [address] Dr. Yisel Liu Protein [Mass/Vol] 7.5 g/dL Normal 6.4-8.2 [facility] Comment on above: Performed By: #### C MP, BNP #### [facility] [address] [place] [address] Dr. Yisel Liu Sodium [Moles/Vol] 141 mmol/L Normal 136-145 [facility] Comment on above: Performed By: #### C MP, BNP #### [facility] [address] [address] [address] Yisel Liu Urea nitrogen [Mass/Vol] 61.0 mg/dL Critically high 7.0-18.0 [facility] Comment on above: Performed By: #### C MP, BNP #### [facility] [address] [address] [address] Yisel Liu Urea nitrogen/Creatinine [Mass ratio] 36.5 mg/mg Normal [facility] Comment on above: Performed By: #### C MP, BNP #### [facility] [address] [place] [address] Dr. Yisel Liu XR CHEST 1 Von [...] KOBI TOMAS Date: 2022-02-26 05:15 Normal [facility] BNPon 02-25-2022 Natriuretic peptide B (Bld) [Mass/Vol] 3112.0 pg/mL Critically high <=1,800.0 [facility] Comment on above: Performed By: #### P HVEN #### [facility] [address] [place] [address] Dr. Yisel Liu CBC AUTO DIFFon 02-25-2022 BASO # 0.0 103/ul Normal 0.0-0.1 [facility] Comment on above: Performed By: #### D IG #### [facility] [address] [address] [address] Yisel Liu Basophils/100 WBC (Bld) 0.1 % Critically low 0.2-2.0 [facility] Comment on above: Performed By: #### D IG #### [facility] [address] [address] [address] Yisel Liu EO # 0.0 103/ul Normal 0.0-0.7 [facility] Comment on above: Performed By: #### D IG #### [facility] [address] [address] [address] Yisel Liu Eosinophils/100 WBC (Bld) 0.0 % Critically low 0.9-7.0 [facility] Comment on above: Performed By: #### D IG #### [facility] [address] [address] [address] Yisel Liu Erythrocyte distribution width (RBC) [Ratio] 16.7 % Critically high 11.0-15.0 [facility] Comment on above: Performed By: #### D IG #### [facility] [address] [place] [address] Dr. Yisel Liu Hematocrit (Bld) [Volume fraction] 38.4 % Normal 36.0-48.0 [facility] Comment on above: Performed By: #### D IG #### [facility] [address] [address] [address] Yisel Liu Hemoglobin (Bld) [Mass/Vol] 11.9 g/dL Critically low 12.0-16.0 [facility] Comment on above: Performed By: #### D IG #### [facility] [address] [address] [address] Yisel Liu IG # 0.09 10e3/ul Critically high 0.00-0.03 [facility] Comment on above: Performed By: #### D IG #### [facility] [address] [address] [address] Yisel Liu IG % 0.6 % Critically high 0.0-0.5 [facility] Comment on above: Performed By: #### D IG #### [facility] [address] [address] [address] Yisel Liu LYMPH # 0.7 103/ul Critically low 1.2-3.8 [facility] Comment on above: Performed By: #### D IG #### [facility] [address] [address] [address] Yisel Liu Lymphocytes/100 WBC (Bld) 5.0 % Critically low 20.5-60.0 [facility] Comment on above: Performed By: #### D IG #### [facility] [address] [place] [address] Dr. Yisel Liu MANUAL DIFF REQ NO Normal [facility] Comment on above: Performed By: #### D IG #### [facility] [address] [place] [address] Dr. Yisel Liu MCH (RBC) [Entitic mass] 28.0 pg Normal 26.7-34.0 [facility] Comment on above: Performed By: #### D IG #### [facility] [address] [place] [address] Dr. Yisel Liu MCHC (RBC) [Mass/Vol] 31.0 g/dL Normal 29.9-35.2 [facility] Comment on above: Performed By: #### D IG #### [facility] [address] [place] [address] Dr. Yisel Liu MCV (RBC) [Entitic vol] 90.4 fL Normal 81.0-99.0 [facility] Comment on above: Performed By: #### D IG #### [facility] [address] [place] [address] Dr. Yisel Liu MONO # 1.2 103/ul Critically high 0.3-0.8 [facility] Comment on above: Performed By: #### D IG #### [facility] [address] [place] [address] Dr. Yisel Liu Monocytes/100 WBC (Bld) 8.1 % Normal 1.7-12.0 [facility] Comment on above: Performed By: #### D IG #### [facility] [address] [place] [address] Dr. Yisel Liu NEUT # 12.2 103/ul Critically high 1.4-6.5 [facility] Comment on above: Performed By: #### D IG #### [facility] [address] [address] [address] Yisel Liu Neutrophils/100 WBC (Bld) 86.2 % Critically high 43.0-75.0 [facility] Comment on above: Performed By: #### D IG #### [facility] [address] [address] [address] Yisel Liu Platelet mean volume (Bld) [Entitic vol] 8.8 fL Critically low 9.5-13.5 [facility] Comment on above: Performed By: #### D IG #### [facility] [address] [address] [address] Yisel Liu PLT 317 103/ul Normal 150-450 [facility] Comment on above: Performed By: #### D IG #### [facility] [address] [place] [address] Dr. Yisel Liu RBC 4.25 106/ul Normal 4.20-5.40 [facility] Comment on above: Performed By: #### D IG #### [facility] [address] [place] [address] Dr. Yisel Liu WBC 14.1 103/ul Critically high 4.0-11.0 [facility] Comment on above: Performed By: #### D IG #### [facility] [address] [place] [address] Dr. Yisel Liu POINT OF CARE GLUCOSEon 12-0 Glucose [Mass/Vol] 312 mg/dL Critically high 74-106 [facility] Comment on above: Performed By: #### P OCGLUC #### [facility] [address] [place] [address] Dr. Yisel Liu Glucose [Mass/Vol] 94 mg/dL Normal 74-106 [facility] Comment on above: Performed By: #### D IG #### [facility] [address] [address] [address] Yisel Liu Glucose [Mass/Vol] 260 mg/dL Critically high 74-106 [facility] Comment on above: Performed By: #### C BC #### [facility] [address] [address] [address] Yisel Liu PROF 14(COMP METB)on 022 Albumin [Mass/Vol] 2.7 g/dL Critically low 3.4-5.0 [facility] Comment on above: Performed By: #### P HVEN #### [facility] [address] [address] [address] Yisel Liu Albumin/Globulin [Mass ratio] 0.5 {ratio} Normal [facility] Comment on above: Performed By: #### P HVEN #### [facility] [address] [address] [address] Yisel Liu ALP [Catalytic activity/Vol] 58 U/L Normal 46-116 [facility] Comment on above: Performed By: #### P HVEN #### [facility] [address] [place] [address] Dr. Yisel Liu ALT [Catalytic activity/Vol] 32 U/L Normal 14-59 [facility] Comment on above: Performed By: #### P HVEN #### [facility] [address] [address] [address] Yisel Liu Anion gap [Moles/Vol] 12.3 mmol/L Normal [facility] Comment on above: Performed By: #### P HVEN #### [facility] [address] [place] [address] Dr. Yisel Liu AST [Catalytic activity/Vol] 54 U/L Critically high 15-37 [facility] Comment on above: Performed By: #### P HVEN #### [facility] [address] [address] [address] Yisel Liu Bilirubin [Mass/Vol] 0.5 mg/dL Normal 0.2-1.0 [facility] Comment on above: Performed By: #### P HVEN #### [facility] [address] [address] [address] Yisel Liu Calcium [Mass/Vol] 9.6 mg/dL Normal 8.5-10.1 [facility] Comment on above: Performed By: #### P HVEN #### [facility] [address] [address] [address] Yisel Liu Chloride [Moles/Vol] 96 mmol/L Critically low 98-107 [facility] Comment on above: Performed By: #### P HVEN #### [facility] [address] [address] [address] Yisel Liu CO2 [Moles/Vol] 33.9 mmol/L Critically high 21.0-32.0 [facility] Comment on above: Performed By: #### P HVEN #### [facility] [address] [address] [address] Yisel Liu Creatinine [Mass/Vol] 1.42 mg/dL Critically high 0.55-1.02 [facility] Comment on above: Performed By: #### P HVEN #### [facility] [address] [place] [address] Dr. Yisel Liu EGFR-AF MALAGASY 43 mL/min/1.73m2 Critically low >=60 [facility] Comment on above: Performed By: #### P HVEN #### [facility] [address] [address] [address] Yisel Liu EGFR-NON AF MALAGASY 36 mL/min/1.73m2 Critically low >=60 [facility] Comment on above: Performed By: #### P HVEN #### [facility] [address] [address] [address] Yisle Liu Globulin (S) [Mass/Vol] 5.3 g/dL Normal [facility] Comment on above: Performed By: #### P HVEN #### [facility] [address] [address] [address] Yisel Liu Glucose [Mass/Vol] 236 mg/dL Critically high 74-106 [facility] Comment on above: Performed By: #### P HVEN #### [facility] [address] [address] [address] Yisel Liu Potassium [Moles/Vol] 4.2 mmol/L Normal 3.5-5.1 [facility] Comment on above: Performed By: #### P HVEN #### [facility] [address] [address] [address] Yisel Liu Protein [Mass/Vol] 8.0 g/dL Normal 6.4-8.2 [facility] Comment on above: Performed By: #### P HVEN #### [facility] [address] [address] [address] Yisel Liu Sodium [Moles/Vol] 138 mmol/L Normal 136-145 [facility] Comment on above: Performed By: #### P HVEN #### [facility] [address] [address] [address] Yisel Liu Urea nitrogen [Mass/Vol] 42.0 mg/dL Critically high 7.0-18.0 [facility] Comment on above: Performed By: #### P HVEN #### [facility] [address] [address] [address] Yisel Liu Urea nitrogen/Creatinine [Mass ratio] 29.6 mg/mg Normal [facility] Comment on above: Performed By: #### P HVEN #### [facility] [address] [address] [address] Yisel Liu XR CHEST 1 Von [...] by: ZENON TURNER Date: 2022-02-25 13:01 Normal [facility] XR CHEST 1 V EXAMINATION: XR CHES [...] BRITTANY YBARRA Date: 2022-02-25 06:38 Normal [facility] BNPon 02-24-2022 Natriuretic peptide B (Bld) [Mass/Vol] 3585.0 pg/mL Critically high <=1,800.0 [facility] Comment on above: Performed By: #### C MP, BNP #### [facility] [address] [place] [address] Dr. Yisel Liu CBC AUTO DIFFon 02-24-2022 BASO # 0.0 103/ul Normal 0.0-0.1 [facility] Comment on above: Performed By: #### C BC #### [facility] [address] [place] [address] Dr. Yisel Liu Basophils/100 WBC (Bld) 0.2 % Normal 0.2-2.0 [facility] Comment on above: Performed By: #### C BC #### [facility] [address] [place] [address] Dr. Yisel Liu EO # 0.0 103/ul Normal 0.0-0.7 [facility] Comment on above: Performed By: #### C BC #### [facility] [address] [place] [address] Dr. Yisel Liu Eosinophils/100 WBC (Bld) 0.0 % Critically low 0.9-7.0 [facility] Comment on above: Performed By: #### C BC #### [facility] [address] [place] [address] Dr. Yisel Liu Erythrocyte distribution width (RBC) [Ratio] 16.4 % Critically high 11.0-15.0 [facility] Comment on above: Performed By: #### C BC #### [facility] [address] [place] [address] Dr. Yisel Liu Hematocrit (Bld) [Volume fraction] 37.7 % Normal 36.0-48.0 [facility] Comment on above: Performed By: #### C BC #### [facility] [address] [place] [address] Dr. Yisel Liu Hemoglobin (Bld) [Mass/Vol] 11.8 g/dL Critically low 12.0-16.0 [facility] Comment on above: Performed By: #### C BC #### [facility] [address] [place] [address] Dr. Yisel Liu IG # 0.04 10e3/ul Critically high 0.00-0.03 [facility] Comment on above: Performed By: #### C BC #### [facility] [address] [place] [address] Dr. Yisel Liu IG % 0.3 % Normal 0.0-0.5 [facility] Comment on above: Performed By: #### C BC #### [facility] [address] [place] [address] Dr. Yisel Liu LYMPH # 0.6 103/ul Critically low 1.2-3.8 [facility] Comment on above: Performed By: #### C BC #### [facility] [address] [place] [address] Dr. Yisel Liu Lymphocytes/100 WBC (Bld) 4.9 % Critically low 20.5-60.0 [facility] Comment on above: Performed By: #### C BC #### [facility] [address] [place] [address] Dr. Yisel Liu MANUAL DIFF REQ NO Normal [facility] Comment on above: Performed By: #### C BC #### [facility] [address] [place] [address] Dr. Yisel Liu MCH (RBC) [Entitic mass] 28.0 pg Normal 26.7-34.0 [facility] Comment on above: Performed By: #### C BC #### [facility] [address] [address] [address] Yisel Liu MCHC (RBC) [Mass/Vol] 31.3 g/dL Normal 29.9-35.2 [facility] Comment on above: Performed By: #### C BC #### [facility] [address] [address] [address] Yisel Liu MCV (RBC) [Entitic vol] 89.5 fL Normal 81.0-99.0 [facility] Comment on above: Performed By: #### C BC #### [facility] [address] [address] [address] Yisel Liu MONO # 0.8 103/ul Normal 0.3-0.8 [facility] Comment on above: Performed By: #### C BC #### [facility] [address] [address] [address] Yisel Liu Monocytes/100 WBC (Bld) 6.2 % Normal 1.7-12.0 [facility] Comment on above: Performed By: #### C BC #### [facility] [address] [address] [address] Yisel Liu NEUT # 11.5 103/ul Critically high 1.4-6.5 [facility] Comment on above: Performed By: #### C BC #### [facility] [address] [address] [address] Yisel Liu Neutrophils/100 WBC (Bld) 88.4 % Critically high 43.0-75.0 [facility] Comment on above: Performed By: #### C BC #### [facility] [address] [address] [address] Yisel Liu Platelet mean volume (Bld) [Entitic vol] 8.8 fL Critically low 9.5-13.5 [facility] Comment on above: Performed By: #### C BC #### [facility] [address] [address] [address] Yisel Liu PLT 361 103/ul Normal 150-450 [facility] Comment on above: Performed By: #### C BC #### [facility] [address] [address] [address] Yisel Liu RBC 4.21 106/ul Normal 4.20-5.40 [facility] Comment on above: Performed By: #### C BC #### [facility] [address] [place] [address] Dr. Yisel Liu WBC 13.0 103/ul Critically high 4.0-11.0 [facility] Comment on above: Performed By: #### C BC #### [facility] [address] [place] [address] Dr. Yisel Liu CULTURE URINEon 02-24-2022 CULTURE [...] Trimethoprim/Sulfamet hoxazole <=20 S F Normal [facility] Comment on above: Performed By: #### D IG #### [facility] [address] [place] [address] Dr. Yisel Liu PH VENOUS BLOODon 02-24-2022 PCO2 VENOUS 55.2 mmHg Critically high 40.0-52.0 [facility] Comment on above: Performed By: #### C BC #### [facility] [address] [place] [address] Dr. Yisel Liu pH VENOUS 7.439 Critically high 7.330-7.430 [facility] Comment on above: Performed By: #### C BC #### [facility] [address] [place] [address] Dr. Yisel Liu POINT OF CARE GLUCOSEon Glucose [Mass/Vol] 232 mg/dL Critically high 74-106 [facility] Comment on above: Performed By: #### C MP, BNP #### [facility] [address] [place] [address] Dr. Yisel Liu Glucose [Mass/Vol] 198 mg/dL Critically high -106 [facility] Comment on above: Performed By: #### C MP, BNP #### [facility] [address] [place] [address] Dr. Yisel Liu Glucose [Mass/Vol] 270 mg/dL Critically high -106 [facility] Comment on above: Performed By: #### C MP, BNP #### [facility] [address] [place] [address] Dr. Yisel Liu Glucose [Mass/Vol] 324 mg/dL Critically high [facility]106 [facility] Comment on above: Performed By: #### D IG #### [facility] [address] [place] [address] Dr. Yisel Liu PROF 14(COMP METB)on 022 Albumin [Mass/Vol] 2.9 g/dL Critically low 3.4-5.0 [facility] Comment on above: Performed By: #### C MP, BNP #### [facility] [address] [place] [address] Dr. Yisel Liu Albumin/Globulin [Mass ratio] 0.5 {ratio} Normal [facility] Comment on above: Performed By: #### C MP, BNP #### [facility] [address] [place] [address] Dr. Yisel Liu ALP [Catalytic activity/Vol] 64 U/L Normal 46-116 [facility] Comment on above: Performed By: #### C MP, BNP #### [facility] [address] [place] [address] Dr. Yisel Liu ALT [Catalytic activity/Vol] 27 U/L Normal 14-59 [facility] Comment on above: Performed By: #### C MP, BNP #### [facility] [address] [place] [address] Dr. Yisel Liu Anion gap [Moles/Vol] 10.8 mmol/L Normal [facility] Comment on above: Performed By: #### C MP, BNP #### [facility] [address] [place] [address] Dr. Yisel Liu AST [Catalytic activity/Vol] 44 U/L Critically high 15-37 [facility] Comment on above: Performed By: #### C MP, BNP #### [facility] [address] [place] [address] Dr. Yisel Liu Bilirubin [Mass/Vol] 0.4 mg/dL Normal 0.2-1.0 [facility] Comment on above: Performed By: #### C MP, BNP #### [facility] [address] [place] [address] Dr. Yisel Liu Calcium [Mass/Vol] 9.2 mg/dL Normal 8.5-10.1 [facility] Comment on above: Performed By: #### C MP, BNP #### [facility] [address] [place] [address] Dr. Yisel Liu Chloride [Moles/Vol] 96 mmol/L Critically low 98-107 [facility] Comment on above: Performed By: #### C MP, BNP #### [facility] [address] [place] [address] Dr. Yisel Liu CO2 [Moles/Vol] 36.6 mmol/L Critically high 21.0-32.0 [facility] Comment on above: Performed By: #### C MP, BNP #### [facility] [address] [place] [address] Dr. Yisel Liu Creatinine [Mass/Vol] 1.22 mg/dL Critically high 0.55-1.02 [facility] Comment on above: Performed By: #### C MP, BNP #### [facility] [address] [place] [address] Dr. Yisel Liu EGFR-AF MALAGASY 52 mL/min/1.73m2 Critically low >=60 [facility] Comment on above: Performed By: #### C MP, BNP #### [facility] [address] [place] [address] Dr. Yisel Liu EGFR-NON AF MALAGASY 43 mL/min/1.73m2 Critically low >=60 [facility] Comment on above: Performed By: #### C MP, BNP #### [facility] [address] [place] [address] Dr. Yisel Liu Globulin (S) [Mass/Vol] 5.3 g/dL Normal [facility] Comment on above: Performed By: #### C MP, BNP #### [facility] [address] [place] [address] Dr. Yisel Liu Glucose [Mass/Vol] 265 mg/dL Critically high 74-106 [facility] Comment on above: Performed By: #### C MP, BNP #### [facility] [address] [place] [address] Dr. Yisel Liu Potassium [Moles/Vol] 3.4 mmol/L Critically low 3.5-5.1 [facility] Comment on above: Performed By: #### C MP, BNP #### [facility] [address] [place] [address] Dr. Yisel Liu Protein [Mass/Vol] 8.2 g/dL Normal 6.4-8.2 [facility] Comment on above: Performed By: #### C MP, BNP #### [facility] [address] [place] [address] Dr. Yisel Liu Sodium [Moles/Vol] 140 mmol/L Normal 136-145 [facility] Comment on above: Performed By: #### C MP, BNP #### [facility] [address] [place] [address] Dr. Yisel Liu Urea nitrogen [Mass/Vol] 27.0 mg/dL Critically high 7.0-18.0 [facility] Comment on above: Performed By: #### C MP, BNP #### [facility] [address] [place] [address] Dr. Yisel Liu Urea nitrogen/Creatinine [Mass ratio] 22.1 mg/mg Normal [facility] Comment on above: Performed By: #### C MP, BNP #### [facility] [address] [place], [place] [id number] Dr. Yisel Liu T3, TOTAL (TRIIODOTHYRONINE) on 02-24-2022 T3, TOTAL 68 ng/dL Critically low 71-180 [facility] Comment on above: Performed By: #### C MP, BNP #### [facility] [address] [place] [address] Dr. Yisel Liu XR CHEST 1 Von [...] IDANIA CUEVAS Date: 2022-02-24 07:10 Normal [facility] BNPon 02-23-2022 Natriuretic peptide B (Bld) [Mass/Vol] 3654.0 pg/mL Critically high <=1,800.0 [facility] Comment on above: Performed By: #### C MP, BNP #### [facility] [address] [place] [address] Dr. Yisel Liu CBC AUTO DIFFon 02-23-2022 BASO # 0.0 103/ul Normal 0.0-0.1 [facility] Comment on above: Performed By: #### C BC #### [facility] [address] [place] [address] Dr. Yisel Liu Basophils/100 WBC (Bld) 0.0 % Critically low 0.2-2.0 [facility] Comment on above: Performed By: #### C BC #### [facility] [address] [place] [address] Dr. Yisel Liu EO # 0.0 103/ul Normal 0.0-0.7 [facility] Comment on above: Performed By: #### C BC #### [facility] [address] [place] [address] Dr. Yisel Liu Eosinophils/100 WBC (Bld) 0.0 % Critically low 0.9-7.0 [facility] Comment on above: Performed By: #### C BC #### [facility] [address] [place] [address] Dr. Yisel Liu Erythrocyte distribution width (RBC) [Ratio] 16.2 % Critically high 11.0-15.0 [facility] Comment on above: Performed By: #### C BC #### [facility] [address] [place] [address] Dr. Yisel Liu Hematocrit (Bld) [Volume fraction] 36.1 % Normal 36.0-48.0 [facility] Comment on above: Performed By: #### C BC #### [facility] [address] [place] [address] Dr. Yisel Liu Hemoglobin (Bld) [Mass/Vol] 11.5 g/dL Critically low 12.0-16.0 [facility] Comment on above: Performed By: #### C BC #### [facility] [address] [place] [address] Dr. Yisel Liu IG # 0.01 10e3/ul Normal 0.00-0.03 [facility] Comment on above: Performed By: #### C BC #### [facility] [address] [place] [address] Dr. Yisel Liu IG % 0.2 % Normal 0.0-0.5 [facility] Comment on above: Performed By: #### C BC #### [facility] [address] [place] [address] Dr. Yisel Liu LYMPH # 0.5 103/ul Critically low 1.2-3.8 [facility] Comment on above: Performed By: #### C BC #### [facility] [address] [place] [address] Dr. Yisel Liu Lymphocytes/100 WBC (Bld) 9.7 % Critically low 20.5-60.0 [facility] Comment on above: Performed By: #### C BC #### [facility] [address] [place] [address] Dr. Yisel Liu MANUAL DIFF REQ NO Normal [facility] Comment on above: Performed By: #### C BC #### [facility] [address] [place] [address] Dr. Yisel Liu MCH (RBC) [Entitic mass] 28.4 pg Normal 26.7-34.0 [facility] Comment on above: Performed By: #### C BC #### [facility] [address] [place] [address] Dr. Yisel Liu MCHC (RBC) [Mass/Vol] 31.9 g/dL Normal 29.9-35.2 [facility] Comment on above: Performed By: #### C BC #### [facility] [address] [place] [address] Dr. Yisel Liu MCV (RBC) [Entitic vol] 89.1 fL Normal 81.0-99.0 [facility] Comment on above: Performed By: #### C BC #### [facility] [address] [place] [address] Dr. Yisel Liu MONO # 0.2 103/ul Critically low 0.3-0.8 [facility] Comment on above: Performed By: #### C BC #### [facility] [address] [place] [address] Dr. Yisel Liu Monocytes/100 WBC (Bld) 3.6 % Normal 1.7-12.0 [facility] Comment on above: Performed By: #### C BC #### [facility] [address] [place] [address] Dr. Yisel Liu NEUT # 4.8 103/ul Normal 1.4-6.5 [facility] Comment on above: Performed By: #### C BC #### [facility] [address] [place] [address] Dr. Yisel Liu Neutrophils/100 WBC (Bld) 86.5 % Critically high 43.0-75.0 [facility] Comment on above: Performed By: #### C BC #### [facility] [address] [place] [address] Dr. Yisel Liu Platelet mean volume (Bld) [Entitic vol] 9.0 fL Critically low 9.5-13.5 [facility] Comment on above: Performed By: #### C BC #### [facility] [address] [place] [address] Dr. Yisel Liu PLT 278 103/ul Normal 150-450 [facility] Comment on above: Performed By: #### C BC #### [facility] [address] [address] [address] Yisel Liu RBC 4.05 106/ul Critically low 4.20-5.40 [facility] Comment on above: Performed By: #### C BC #### [facility] [address] [place] [address] Dr. Yisel Liu WBC 5.6 103/ul Normal 4.0-11.0 [facility] Comment on above: Performed By: #### C BC #### [facility] [address] [place] [address] Dr. Yisel Liu ECHOCARDIO M/2D COMPLETEon 1 04-26-2021 ECHOCARDIO M/2D COMPLETE Patient: STARLA SWEENEY Exam Date: 02/23/2022 : 1945 Gender:F Ordering : DR KARY CATHERINE . Admission #: [id number] Family : Order #: [id number] CLICK HERE TO VIEW EXAM ECHOCARDIOGRAM REPORT [...] (Peak Joseph): 1.55 cm2, 1.55 cm2 Deceleration Shoshone: 1.84 m/s2 Pressure Half-Time: 561.41 ms Peak [...] Hill M.D. on 02/25/2022 at 12:52 Normal [facility] PH VENOUS BLOODon 02-23-2022 PCO2 VENOUS 48.0 mmHg Normal 40.0-52.0 [facility] Comment on above: Performed By: #### P HVEN #### [facility] [address] [place] [address] Dr. Yisel Liu pH VENOUS 7.479 Critically high 7.330-7.430 [facility] Comment on above: Performed By: #### P HVEN #### [facility] [address] [place] [address] Dr. Yisel Liu POINT OF CARE GLUCOSEon Glucose [Mass/Vol] 323 mg/dL Critically high [facility]106 [facility] Comment on above: Performed By: #### C MP, BNP #### [facility] [address] [place] [address] Dr. Yisel Liu Glucose [Mass/Vol] 372 mg/dL Critically high [address] [place] [address] Comment on above: Performed By: #### C MP, BNP #### [facility] [address] [place] [address] Dr. Yisel Liu Glucose [Mass/Vol] 347 mg/dL Critically high [facility] Comment on above: Performed By: #### D IG #### [facility] [address] [place] [address] Dr. Yisel Liu Glucose [Mass/Vol] 474 mg/dL Critically high [facility]106 [facility] Comment on above: Performed By: #### C MP, BNP #### [facility] [address] [place] [address] Dr. Yisel Liu PROF 14(COMP METB)on 022 Albumin [Mass/Vol] 2.8 g/dL Critically low 3.4-5.0 [facility] Comment on above: Performed By: #### C MP, BNP #### [facility] [address] [address] [address] Yisel Liu Albumin/Globulin [Mass ratio] 0.5 {ratio} Normal [facility] Comment on above: Performed By: #### C MP, BNP #### [facility] [address] [address] [address] Yisel Liu ALP [Catalytic activity/Vol] 72 U/L Normal 46-116 [facility] Comment on above: Performed By: #### C MP, BNP #### [facility] [address] [place] [address] Dr. Yisel Liu ALT [Catalytic activity/Vol] 14 U/L Normal 14-59 [facility] Comment on above: Performed By: #### C MP, BNP #### [facility] [address] [place] [address] Dr. Yisel Liu Anion gap [Moles/Vol] 11.3 mmol/L Normal [facility] Comment on above: Performed By: #### C MP, BNP #### [facility] [address] [place] [address] Dr. Yisel Liu AST [Catalytic activity/Vol] 23 U/L Normal 15-37 [facility] Comment on above: Performed By: #### C MP, BNP #### [facility] [address] [place] [address] Dr. Yisel Liu Bilirubin [Mass/Vol] 0.5 mg/dL Normal 0.2-1.0 [facility] Comment on above: Performed By: #### C MP, BNP #### [facility] [address] [address] [address] Yisel Liu Calcium [Mass/Vol] 9.0 mg/dL Normal 8.5-10.1 [facility] Comment on above: Performed By: #### C MP, BNP #### [facility] [address] [address] [address] Yisel Liu Chloride [Moles/Vol] 92 mmol/L Critically low 98-107 [facility] Comment on above: Performed By: #### C MP, BNP #### [facility] [address] [place] [address] Dr. Yisel Liu CO2 [Moles/Vol] 34.8 mmol/L Critically high 21.0-32.0 [facility] Comment on above: Performed By: #### C MP, BNP #### [facility] [address] [address] [address] Yisel Liu Creatinine [Mass/Vol] 1.00 mg/dL Normal 0.55-1.02 [facility] Comment on above: Performed By: #### C MP, BNP #### [facility] [address] [place] [address] Dr. Yisel Liu EGFR-AF MALAGASY >60 Normal >=60 [facility] Comment on above: Performed By: #### C MP, BNP #### [facility] [address] [place] [address] Dr. Yisel Liu EGFR-NON AF MALAGASY 54 mL/min/1.73m2 Critically low >=60 [facility] Comment on above: Performed By: #### C MP, BNP #### [facility] [address] [place] [address] Dr. Yisel Liu Globulin (S) [Mass/Vol] 5.5 g/dL Normal [facility] Comment on above: Performed By: #### C MP, BNP #### [facility] [address] [place] [address] Dr. Yisel Liu Glucose [Mass/Vol] 416 mg/dL Critically high 74-106 [facility] Comment on above: Performed By: #### C MP, BNP #### [facility] [address] [place] [address] Dr. Yisel Liu Potassium [Moles/Vol] 3.1 mmol/L Critically low 3.5-5.1 [facility] Comment on above: Performed By: #### C MP, BNP #### [facility] [address] [address] [address] Yisel Liu Protein [Mass/Vol] 8.3 g/dL Critically high 6.4-8.2 [facility] Comment on above: Performed By: #### C MP, BNP #### [facility] [address] [address] [address] Yisel Liu Sodium [Moles/Vol] 135 mmol/L Critically low 136-145 [facility] Comment on above: Performed By: #### C MP, BNP #### [facility] [address] [address] [address] Yisel Liu Urea nitrogen [Mass/Vol] 20.0 mg/dL Critically high 7.0-18.0 [facility] Comment on above: Performed By: #### C MP, BNP #### [facility] [address] [address] [address] Yisel Liu Urea nitrogen/Creatinine [Mass ratio] 20.0 mg/mg Normal [facility] Comment on above: Performed By: #### C MP, BNP #### [facility] [address] [address] [address] Yisel Liu XR CHEST 1 Von [...] by: BRITTANY YBARRA Date: 2022-02-23 07:12 Normal [facility] AMMONIAon 02-22-2022 Ammonia (P) [Moles/Vol] 36 umol/L Critically high 11-32 [facility] Comment on above: Performed By: #### C MP, BNP #### [facility] [address] [place] [address] Dr. Yisel Liu [facility] MODE SIMPLE MASK Normal [facility] Comment on above: Performed By: #### A BG #### [facility] [address] [place] [address] Dr. Yisel Liu ALLENS TEST Positive [facility] Comment on above: Performed By: #### A BG #### [facility] [address] [place] [address] Dr. Yisel Liu Base excess Calc (Bld) [Moles/Vol] 0.7 mmol/L Normal -2.0-2.0 [facility] Comment on above: Performed By: #### A BG #### [facility] [address] [place] [address] Dr. Yisel Liu BIPAP PRESSURE [facility] Comment on above: Performed By: #### A BG #### [facility] [address] [place] [address] Dr. Yisel Liu CPAP [facility] Comment on above: Performed By: #### A BG #### [facility] [address] [place] [address] Dr. Yisel Liu FIO2 [facility] Comment on above: Performed By: #### A BG #### [facility] [address] [place] [address] Dr. Yisel Liu HCO3 (Bld) [Moles/Vol] 28.8 mmol/L Critically high 22.0-26.0 [facility] Comment on above: Performed By: #### A BG #### [facility] [address] [place] [address] Dr. Yisel Liu LPM 6 [facility] Comment on above: Performed By: #### A BG #### [facility] [address] [place] [address] Dr. Yisel Liu MINUTE VOLUME Normal [facility] Comment on above: Performed By: #### A BG #### [facility] [address] [address] [address] Yisel Liu Oxygen (Bld) [Partial pressure] 82.6 mm[Hg] Normal 80.0-100.0 [facility] Comment on above: Performed By: #### A BG #### [facility] [address] [place] [address] Dr. Yisel Liu Oxygen saturation in Blood 93.0 % Critically low 95.0-100.0 [facility] Comment on above: Performed By: #### A BG #### [facility] [address] [place] [address] Dr. Yisel Liu PCO2 74.3 mmHg Critically high 35.0-45.0 [facility] Comment on above: Performed By: #### A BG #### [facility] [address] [place] [address] Dr. Yisel Liu [facility] Comment on above: Performed By: #### A BG #### [facility] [address] [place] [address] Dr. Yisel Liu pH (Bld) 7.197 [pH] Critically low 7.350-7.450 [facility] Comment on above: Performed By: #### A BG #### [facility] [address] [place] [address] Dr. Yisel Liu [facility] Comment on above: Performed By: #### A BG #### [facility] [address] [place] [address] Dr. Yisel Liu PS [facility] Comment on above: Performed By: #### A BG #### [facility] [address] [place] [address] Dr. Yisel Liu PUNCTURE SITE RR [facility] Comment on above: Performed By: #### A BG #### [facility] [address] [place] [address] Dr. Yisel Liu RATE [facility] [facility] Comment on above: Performed By: #### A BG #### [facility] [address] [place] [address] Dr. Yisel Liu [facility] Comment on above: Performed By: #### A BG #### [facility] [address] [place] [address] Dr. Yisel Liu [facility] Comment on above: Performed By: #### A BG #### [facility] [address] [place] [address] Dr. Yisel Liu BNPon 02-22-2022 Natriuretic peptide B (Bld) [Mass/Vol] 2771.0 pg/mL Critically high <=1,800.0 [facility] Comment on above: Performed By: #### C MP, BNP #### [facility] [address] [place] [address] Dr. Yisel Liu CARDIAC MIKEY 3-6on 2 CK [Catalytic activity/Vol] 18 U/L Critically low 26-192 [facility] Comment on above: Performed By: #### C BC #### [facility] [address] [place] [address] Dr. Yisel Liu CK.MB [Mass/Vol] ng/mL Normal <=3.60 [facility] Comment on above: Performed By: #### C BC #### [facility] [address] [place] [address] Dr. Yisel Liu HSTROP 10.3 pg/mL Normal 4.0-51.3 [facility] Comment on above: Result Comment: CUT- OFF POINTS HAVE BEEN ESTABLISHED BASED ON THE FOURTH UNIVERSAL DEFINITIONS OF MYOCARDIAL INFARCTION. THE UPPER REFERENCE LIMIT (URL) OF TROPONIN, DEFINED THE 99TH PERCENTILE OF cTnI DISTRIBUTION IN A REFERENCE POPULATION, HAS BEEN CONFIRMED THE DECISION THRESHOLD FOR OH DIAGNOSIS. Performed By: #### C BC #### [facility] [address] [place] [address] Dr. Yisel Liu CK [Catalytic activity/Vol] 36 U/L Normal 26-192 [facility] Comment on above: Performed By: #### C MP, BNP #### [facility] [address] [place] [address] Dr. Yisel Liu CK.MB [Mass/Vol] ng/mL Normal <=3.60 [facility] Comment on above: Performed By: #### C MP, BNP #### [facility] [address] [place] [address] Dr. Yisel Liu HSTROP 9.8 pg/mL Normal 4.0-51.3 [facility] Comment on above: Result Comment: CUT- OFF POINTS HAVE BEEN ESTABLISHED BASED ON THE FOURTH UNIVERSAL DEFINITIONS OF MYOCARDIAL INFARCTION. THE UPPER REFERENCE LIMIT (URL) OF TROPONIN, DEFINED THE 99TH PERCENTILE OF cTnI DISTRIBUTION IN A REFERENCE POPULATION, HAS BEEN CONFIRMED THE DECISION THRESHOLD FOR OH DIAGNOSIS. Performed By: #### C MP, BNP #### [facility] [address] [place] [address] Dr. Yisel Liu CK [Catalytic activity/Vol] 15 U/L Critically low 26-192 [facility] Comment on above: Performed By: #### C MP, BNP #### [facility] [address] [place] [address] Dr. Yisel Liu CK.MB [Mass/Vol] ng/mL Normal <=3.60 [facility] Comment on above: Performed By: #### C MP, BNP #### [facility] [address] [place] [address] Dr. Yisel Liu HSTROP 9.7 pg/mL Normal 4.0-51.3 [facility] Comment on above: Result Comment: CUT- OFF POINTS HAVE BEEN ESTABLISHED BASED ON THE FOURTH UNIVERSAL DEFINITIONS OF MYOCARDIAL INFARCTION. THE UPPER REFERENCE LIMIT (URL) OF TROPONIN, DEFINED THE 99TH PERCENTILE OF cTnI DISTRIBUTION IN A REFERENCE POPULATION, HAS BEEN CONFIRMED THE DECISION THRESHOLD FOR OH DIAGNOSIS. Performed By: #### C MP, BNP #### [facility] [address] [place] [address] Dr. Yisel Liu CK [Catalytic activity/Vol] 8 U/L Critically low 26-192 [facility] Comment on above: Performed By: #### C MREP #### [facility] [address] [place] [address] Dr. Yisel Liu Performed By: #### D IG #### [facility] [address] [place] [address] Dr. Yisel Liu CK.MB [Mass/Vol] ng/mL Normal <=3.60 [facility] Comment on above: Performed By: #### C MREP #### [facility] [address] [place] [address] Dr. Yisel Liu Performed By: #### D IG #### [facility] [address] [place] [address] Dr. Yisel Liu HSTROP 9.4 pg/mL Normal 4.0-51.3 [facility] Comment on above: Result Comment: CUT- OFF POINTS HAVE BEEN ESTABLISHED BASED ON THE FOURTH UNIVERSAL DEFINITIONS OF MYOCARDIAL INFARCTION. THE UPPER REFERENCE LIMIT (URL) OF TROPONIN, DEFINED THE 99TH PERCENTILE OF cTnI DISTRIBUTION IN A REFERENCE POPULATION, HAS BEEN CONFIRMED THE DECISION THRESHOLD FOR OH DIAGNOSIS. Performed By: #### C MREP #### [facility] [address] [place] [address] Dr. Yisel Liu CARDIAC MIKEY ADMITon 022 HSTROP 11.1 pg/mL Normal 4.0-51.3 [facility] Comment on above: Result Comment: CUT- OFF POINTS HAVE BEEN ESTABLISHED BASED ON THE FOURTH UNIVERSAL DEFINITIONS OF MYOCARDIAL INFARCTION. THE UPPER REFERENCE LIMIT (URL) OF TROPONIN, DEFINED THE 99TH PERCENTILE OF cTnI DISTRIBUTION IN A REFERENCE POPULATION, HAS BEEN CONFIRMED THE DECISION THRESHOLD FOR OH DIAGNOSIS. Performed By: #### D IG #### [facility] [address] [place] [address] Dr. Yisel Liu YULI 16 ng/mL Normal 9-82 [facility] Comment on above: Performed By: #### D IG #### [facility] [address] [place] [address] Dr. Yisel Liu CBC AUTO DIFFon 02-22-2022 BASO # 0.0 103/ul Normal 0.0-0.1 [facility] Comment on above: Performed By: #### C BC #### [facility] [address] [place] [address] Dr. Yisel Liu Basophils/100 WBC (Bld) 0.2 % Normal 0.2-2.0 [facility] Comment on above: Performed By: #### C BC #### [facility] [address] [place] [address] Dr. Yisel Liu EO # 0.1 103/ul Normal 0.0-0.7 [facility] Comment on above: Performed By: #### C BC #### [facility] [address] [place] [address] Dr. Yisel Liu Eosinophils/100 WBC (Bld) 0.7 % Critically low 0.9-7.0 [facility] Comment on above: Performed By: #### C BC #### [facility] [address] [place] [address] Dr. Yisel Liu Erythrocyte distribution width (RBC) [Ratio] 17.0 % Critically high 11.0-15.0 [facility] Comment on above: Performed By: #### C BC #### [facility] [address] [place] [address] Dr. Yisel Liu Hematocrit (Bld) [Volume fraction] 33.1 % Critically low 36.0-48.0 [facility] Comment on above: Performed By: #### C BC #### [facility] [address] [place] [address] Dr. Yisel Liu Hemoglobin (Bld) [Mass/Vol] 10.0 g/dL Critically low 12.0-16.0 [facility] Comment on above: Performed By: #### C BC #### [facility] [address] [place] [address] Dr. Yisel Liu IG # 0.08 10e3/ul Critically high 0.00-0.03 [facility] Comment on above: Performed By: #### C BC #### [facility] [address] [place] [address] Dr. Yisel Liu IG % 0.9 % Critically high 0.0-0.5 [facility] Comment on above: Performed By: #### C BC #### [facility] [address] [place] [address] Dr. Yisel Liu LYMPH # 0.8 103/ul Critically low 1.2-3.8 [facility] Comment on above: Performed By: #### C BC #### [facility] [address] [address] [address] Yisel Liu Lymphocytes/100 WBC (Bld) 9.2 % Critically low 20.5-60.0 [facility] Comment on above: Performed By: #### C BC #### [facility] [address] [address] [address] Yisel Liu MANUAL DIFF REQ NO Normal [facility] Comment on above: Performed By: #### C BC #### [facility] [address] [place] [address] Dr. Yisel Liu MCH (RBC) [Entitic mass] 28.3 pg Normal 26.7-34.0 [facility] Comment on above: Performed By: #### C BC #### [facility] [address] [place] [address] Dr. Yisel Liu MCHC (RBC) [Mass/Vol] 30.2 g/dL Normal 29.9-35.2 [facility] Comment on above: Performed By: #### C BC #### [facility] [address] [place] [address] Dr. Yisel Liu MCV (RBC) [Entitic vol] 93.8 fL Normal 81.0-99.0 [facility] Comment on above: Performed By: #### C BC #### [facility] [address] [place] [address] Dr. Yisel Liu MONO # 0.8 103/ul Normal 0.3-0.8 [facility] Comment on above: Performed By: #### C BC #### [facility] [address] [place] [address] Dr. Yisel Liu Monocytes/100 WBC (Bld) 8.7 % Normal 1.7-12.0 [facility] Comment on above: Performed By: #### C BC #### [facility] [address] [place] [address] Dr. Yisel Liu NEUT # 6.9 103/ul Critically high 1.4-6.5 [facility] Comment on above: Performed By: #### C BC #### [facility] [address] [address] [address] Yisel Liu Neutrophils/100 WBC (Bld) 80.3 % Critically high 43.0-75.0 [facility] Comment on above: Performed By: #### C BC #### [facility] [address] [address] [address] Yisel Liu Platelet mean volume (Bld) [Entitic vol] 8.8 fL Critically low 9.5-13.5 [facility] Comment on above: Performed By: #### C BC #### [facility] [address] [address] [address] Yisel Liu PLT 269 103/ul Normal 150-450 [facility] Comment on above: Performed By: #### C BC #### [facility] [address] [address] [address] Yisel Liu RBC 3.53 106/ul Critically low 4.20-5.40 [facility] Comment on above: Performed By: #### C BC #### [facility] [address] [address] [address] Yisel Liu WBC 8.7 103/ul Normal 4.0-11.0 [facility] Comment on above: Performed By: #### C BC #### [facility] [address] [address] HEAD WO CONon [...] KARSTEN MUJICA Date: 2022-02-22 06:27 Normal [facility] CTA CHEST WO W CONon 022 [...] ZENON TURNER Date: 2022-02-22 08:00 Normal [facility] CULTURE BLOODon 02-22-2022 Microscopic examination of blood, culture Culture Observations: NO GROWTH AT 5 DAYS. Normal [facility] Comment on above: Performed By: #### D IG #### [facility] [address] [place] [address] Dr. Yisel Liu Covid-19 PCR ([facility])on 12-0 4-2022 SARS-CoV-2 (COVID-19) RNA JACINTA+probe Ql (Unsp spec) Not detected Normal NOT DETECTED [facility] Comment on above: Result Comment: When [...] for this test is supported by the [place] of Health and Human Service's declaration that [...] used). Performed By: #### C BC #### [facility] [address] [place] [address] Dr. Yisel Liu DIGOXINon 02-22-2022 DIG 0.5 ng/mL Critically low 0.9-2.0 [facility] Comment on above: Performed By: #### D IG #### [facility] [address] [place] [address] Dr. Yisel Liu ER URINE PROFILEon 2 Bilirubin Ql (U) Negative Normal NEGATIVE [facility] Comment on above: Performed By: #### P HVEN #### [facility] [address] [place] [address] Dr. Yisel Liu Clarity (U) CLEAR Normal CLEAR [facility] Comment on above: Performed By: #### P HVEN #### [facility] [address] [place] [address] Dr. Yisel Liu Color (U) YELLOW Normal YELLOW [facility] Comment on above: Performed By: #### P HVEN #### [facility] [address] [place] [address] Dr. Yisel Liu ERUNGUYỄN A micrscopic examination will be performed if indicated. Normal [facility] Comment on above: Performed By: #### P HVEN #### [facility] [address] [address] [address] Yisel Liu Glucose Ql (U) Negative Normal NEGATIVE [facility] Comment on above: Performed By: #### P HVEN #### [facility] [address] [place] [address] Dr. Yisel Liu Hemoglobin Ql (U) Negative Normal NEGATIVE [facility] Comment on above: Performed By: #### P HVEN #### [facility] [address] [address] [address] Yisel Liu Ketones Ql (U) TRACE Abnormal NEGATIVE [facility] Comment on above: Performed By: #### P HVEN #### [facility] [address] [place] [address] Dr. Yisel Liu LEUKOCYTES TRACE Abnormal NEGATIVE [facility] Comment on above: Performed By: #### P HVEN #### [facility] [address] [place] [address] Dr. Ysiel Liu Nitrite Ql (U) Positive Abnormal NEGATIVE [facility] Comment on above: Performed By: #### P HVEN #### [facility] [address] [place] [address] Dr. Yisel Liu pH (U) 5.5 [pH] Normal 5-9 [facility] Comment on above: Performed By: #### P HVEN #### [facility] [address] [place] [address] Dr. Yisel Liu SPEC GRAVITY >=1.030 Abnormal 1.005-<=1.025 [facility] Comment on above: Performed By: #### P HVEN #### [facility] [address] [place] [address] Dr. Yisel Liu UA PROTEIN TRACE Normal NEGATIVE/ TRACE [facility] Comment on above: Performed By: #### P HVEN #### [facility] [address] [place] [address] Dr. Yisel Liu UR MICRO IND INDICATED Normal [facility] Comment on above: Performed By: #### P HVEN #### [facility] [address] [place] [address] Dr. Yisel Liu Urobilinogen Qn (U) 1.0 {Krystian'U}/dL Normal 0.2 - 1. 0 [facility] Comment on above: Performed By: #### P HVEN #### [facility] [address] [place] [address] Dr. Yisel Liu INFLUENZA A AND B AGon 02-22 INFLUBNEGH SEE BELOW Normal [facility] Comment on above: Result Comment: Nega tive for Flu B protein antigen. Infection due to Flu B cannot be ruled out. Flu B antigen in the sample may be below the detection limit of the test. Performed By: #### C MP, BNP #### [facility] [address] [place] [address] Dr. Yisel Liu INFLUENZA A AG Positive Abnormal NEGATIVE SEE COMMENT [facility] Comment on above: Performed By: #### C MP, BNP #### [facility] [address] [place] [address] Dr. Yisel Liu INFLUENZA B AG Negative Normal NEGATIVE SEE COMMENT [facility] Comment on above: Performed By: #### C MP, BNP #### [facility] [address] [place] [address] Dr. Yisel Liu INFLUPOSH SEE BELOW Normal [facility] Comment on above: Result Comment: NOTE : Live attenuated influenzae vaccine viruses can cause a positive result for a rapid influenza diagnostic test if administered up to 7 days prior to rapid testing. Performed By: #### C MP, BNP #### [facility] [address] [place] [address] Dr. Yisel Liu INTERNAL CONTROLS Within Normal Limits Normal Wi thin Normal Limits [facility] Comment on above: Performed By: #### C MP, BNP #### [facility] [address] [place] [address] Dr. Yisel Liu LACTATE/LACTIC ACIDon 2021 Lactate [Moles/Vol] 4.1 mmol/L Critically high 0.4-1.9 [facility] Comment on above: Performed By: #### C MP, BNP #### [facility] [address] [address] [address] Yisel Liu Lactate [Moles/Vol] 3.3 mmol/L Critically high 0.4-1.9 [facility] Comment on above: Performed By: #### C BC #### [facility] [address] [address] [address] Yisel Liu Lactate [Moles/Vol] 3.2 mmol/L Critically high 0.4-1.9 [facility] Comment on above: Performed By: #### C BC #### [facility] [address] [place] [address] Dr. Yisel Liu MAGNESIUMon 02-22-2022 Magnesium [Mass/Vol] 1.6 mg/dL Critically low 1.8-2.4 [facility] Comment on above: Performed By: #### C BC #### [facility] [address] [place] [address] Dr. Yisel Liu OCC BLD IMMUNOASSAYon 2021 OCCULT BLOOD Negative Normal NEGATIVE [facility] Comment on above: Performed By: #### C BC #### [facility] [address] [place] [address] Dr. Yisel Liu PH VENOUS BLOODon 02-22-2022 PCO2 VENOUS 44.3 mmHg Normal 40.0-52.0 [facility] Comment on above: Performed By: #### C MP, BNP #### [facility] [address] [place] [address] Dr. Yisel Liu pH VENOUS 7.410 Normal 7.330-7.430 [facility] Comment on above: Performed By: #### C MP, BNP #### [facility] [address] [place] [address] Dr. Yisel Liu POINT OF CARE GLUCOSEon Glucose [Mass/Vol] 313 mg/dL Critically high [address] [place] [address] Comment on above: Performed By: #### P OCGLUC #### [facility] [address] [place] [address] Dr. Yisel Liu Glucose [Mass/Vol] 240 mg/dL Critically high [address] [place] [address] Comment on above: Performed By: #### C MP, BNP #### [facility] [address] [address] [address] Yisel Liu Glucose [Mass/Vol] 226 mg/dL Critically high 74-106 [facility] Comment on above: Performed By: #### C MP, BNP #### [facility] [address] [address] [address] Yisel Liu PROF CHEM 8 (BAS METB)on Anion gap [Moles/Vol] 11.2 mmol/L Normal [facility] Comment on above: Performed By: #### D IG #### [facility] [address] [place] [address] Dr. Yisel Liu Calcium [Mass/Vol] 9.0 mg/dL Normal 8.5-10.1 [facility] Comment on above: Performed By: #### D IG #### [facility] [address] [place] [address] Dr. Yisel Liu Chloride [Moles/Vol] 100 mmol/L Normal 98-107 [facility] Comment on above: Performed By: #### D IG #### [facility] [address] [place] [address] Dr. Yisel Liu CO2 [Moles/Vol] 32.1 mmol/L Critically high 21.0-32.0 [facility] Comment on above: Performed By: #### D IG #### [facility] [address] [place] [address] Dr. Yisel Liu Creatinine [Mass/Vol] 0.71 mg/dL Normal 0.55-1.02 [facility] Comment on above: Performed By: #### D IG #### [facility] [address] [place] [address] Dr. Yisel Liu EGFR-AF MALAGASY >60 Normal >=60 [facility] Comment on above: Performed By: #### D IG #### [facility] [address] [place] [address] Dr. Yisel Liu EGFR-NON AF MALAGASY >60 Normal >=60 [facility] Comment on above: Performed By: #### D IG #### [facility] [address] [address] [address] Yisel Liu Glucose [Mass/Vol] 118 mg/dL Critically high 74-106 [facility] Comment on above: Performed By: #### D IG #### [facility] [address] [address] [address] Yisel Liu Potassium [Moles/Vol] 4.3 mmol/L Normal 3.5-5.1 [facility] Comment on above: Performed By: #### D IG #### [facility] [address] [address] [address] Yisel Liu Sodium [Moles/Vol] 139 mmol/L Normal 136-145 [facility] Comment on above: Performed By: #### D IG #### [facility] [address] [address] [address] Yisel Liu Urea nitrogen [Mass/Vol] 14.0 mg/dL Normal 7.0-18.0 [facility] Comment on above: Performed By: #### D IG #### [facility] [address] [address] [address] Yisel Liu Urea nitrogen/Creatinine [Mass ratio] 19.7 mg/mg Normal [facility] Comment on above: Performed By: #### D IG #### [facility] [address] [address] [address] Yisel Liu T4on 02-22-2022 T4 [Mass/Vol] 9.40 ug/dL Normal 4.80-13.90 [facility] Comment on above: Performed By: #### C BC #### [facility] [address] [address] [address] Yisel Liu TSHon 02-22-2022 TSH 1.438 uIU/mL Normal 0.358-3.740 [facility] Comment on above: Performed By: #### C BC #### [facility] [address] [address] [address] Yisel Liu URINE MICROSCOPIC ONLYon BACTERIA LARGE Abnormal NONE SEEN [facility] Comment on above: Performed By: #### P HVEN #### [facility] [address] [address] [address] Yisel Liu Bacteria identified Cx Nom (U) INDICATED Normal [facility] Comment on above: Performed By: #### P HVEN #### [facility] [address] [place] [address] Dr. Yisel Liu CAST NONE SEEN Normal NONE SEEN [facility] Comment on above: Performed By: #### P HVEN #### [facility] [address] [place] [address] Dr. Yisel Liu Crystals LM Nom (Urine sed) NONE SEEN Normal NONE SEEN [facility] Comment on above: Performed By: #### P HVEN #### [facility] [address] [place] [address] Dr. Yisel Liu Epithelial cells LM Ql (Urine sed) FEW Abnormal NONE SEEN /RARE [facility] Comment on above: Performed By: #### P HVEN #### [facility] [address] [place] [address] Dr. Yisel Liu MUCOUS TRACE Abnormal NONE SEEN [facility] Comment on above: Performed By: #### P HVEN #### [facility] [address] [place] [address] Dr. Yisel Liu RBC 0-2 Normal 0-2 [facility] Comment on above: Performed By: #### P HVEN #### [facility] [address] [place] [address] Dr. Yisel Liu WBC (U) [#/Vol] /uL Abnormal NONE SEEN [facility] Comment on above: Performed By: #### P HVEN #### [facility] [address] [place] [address] Dr. Yisel Liu XR CHEST 1 Von [...] by: ANUSHKA FLANAGAN Date: 2022-02-22 07:17 Normal [facility] Vital Signs Date Time Vital Sign Value Performing Clinician Facility 07-13-2024 13:04-0400 Body height 165.1 cm Severo Brown DPM Work Phone: [facility] 07-13-2024 13:04-0400 Body mass index (BMI) [Ratio] 30.62 kg/m2 Severo Brown DPM Work Phone: [facility] 07-13-2024 13:04-0400 Body weight 83.46 kg Severo Brown DPM Work Phone: [facility] 07-13-2024 13:04-0400 Respiratory rate 16 /min Severo Brown DPM Work Phone: [facility] 05-04-2024 13:40-0500 Body height 165.1 cm Severo Brown DPM Work Phone: [facility] 05-04-2024 13:40-0500 Body mass index (BMI) [Ratio] 30.62 kg/m2 Severo Brown DPM Work Phone: [facility] 05-04-2024 13:40-0500 Body weight 83.46 kg Severo Brown DPM Work Phone: [facility] 05-04-2024 13:40-0500 Respiratory rate 18 /min Severo Brown DPM Work Phone: [facility] 02-24-2024 13:36-0500 Body height 165.1 cm Severo Brown DPM Work Phone: [facility] 02-24-2024 13:36-0500 Body mass index (BMI) [Ratio] 30.62 kg/m2 Severo Brown DPM Work Phone: [facility] 02-24-2024 13:36-0500 Body weight 83.46 kg Severo Brown DPM Work Phone: [facility] 02-24-2024 13:36-0500 Respiratory rate 16 /min Severo Milton DPM Work Phone: [facility] 02-03-2024 14:28-0500 Body height 165.1 cm Severo Milton DPM Work Phone: [facility] 02-03-2024 14:28-0500 Body mass index (BMI) [Ratio] 30.62 kg/m2 Severo Milton DPM Work Phone: [facility] 02-03-2024 14:28-0500 Body weight 83.46 kg Severo Milton DPM Work Phone: [facility] 02-03-2024 14:28-0500 Diastolic blood pressure 79 mm[Hg] Severo Milton DPM Work Phone: [facility] 02-03-2024 14:28-0500 Heart rate 82 /min Severo Milton DPM Work Phone: [facility] 02-03-2024 14:28-0500 Systolic blood pressure 129 mm[Hg] Severo Milton DPM Work Phone: [facility] 01-13-2024 13:56-0400 Body height 165.1 cm Severo Milton DPM Work Phone: [facility] 01-13-2024 13:56-0400 Body mass index (BMI) [Ratio] 30.62 kg/m2 Severo Milton DPM Work Phone: [facility] 01-13-2024 13:56-0400 Body weight 83.46 kg Severo Milton DPM Work Phone: [facility] 01-13-2024 13:56-0400 Diastolic blood pressure 77 mm[Hg] Severo Milton DPM Work Phone: [facility] 01-13-2024 13:56-0400 Heart rate 72 /min Severo Milton DPM Work Phone: [facility] 01-13-2024 13:56-0400 Systolic blood pressure 125 mm[Hg] Severo Milton DPM Work Phone: [facility] 09-09-2023 16:21-0400 Body temperature 98.2 [degF] Jaguar Cobos MD [facility] 09-09-2023 16:21-0400 Diastolic blood pressure 61 mm[Hg] Jaguar Cobos MD [facility] 09-09-2023 16:21-0400 Heart rate 91 /min Jaguar Cobos MD Work Phone: [facility] [employer] [facility] [employer] 09-09-2023 16:21-0400 Respiratory rate 18 /min Jaguar Cobos MD [facility] 09-09-2023 16:21-0400 SaO2% (BldA) [Mass fraction] 97 % Jaguar Cobos MD [facility] 09-09-2023 16:21-0400 Systolic blood pressure 101 mm[Hg] Jaguar Cobos MD [facility] 09-08-2023 15:07-0400 Body height 167.6 cm Jaguar Cobos MD Work Phone: [facility] [employer] 09-08-2023 15:07-0400 Body mass index (BMI) [Ratio] 29.89 kg/m2 Jaguar Cobos MD Work Phone: [facility] [employer] 09-08-2023 15:07-0400 Body weight 84 kg Jaguar Cobos MD Work Phone: [facility] [employer] [facility] [employer] Encounters Encounter Date Encounter Type Care Provider Facility Start: 07-13-2024 End: 07-13-2024 Bamboo flowsheet Severo Milton DPM Work Phone: [facility] Start: 07-13-2024 End: 07-13-2024 Bamboo flowsheet Severo Milton DPM Work Phone: [facility] Start: 07-13-2024 End: 07-13-2024 Office outpatient visit 15 minutes Severo Milton DPM Work Phone: [facility] Comment on above: Dry gangrene (CMS/HC C) (Primary Dx); Diabetes mellitus due to underlying condition with diabetic polyneuropathy, unspecified whether assisted insulin use (CMS/HCC); Pain due to onychomycosis of toenails of both feet Start: 07-13-2024 End: 07-13-2024 ambulatory SEVERO MILTON Not Available Start: 05-04-2024 End: 05-04-2024 Office outpatient visit 15 minutes Severo Milton DPM Work Phone: [facility] Comment on above: Dry gangrene (CMS/HC C) (Primary Dx); Diabetes mellitus due to underlying condition with diabetic polyneuropathy, 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 (CMS/HCC); Pain due to onychomycosis of toenails of both feet Start: 05-04-2024 End: 05-04-2024 ambulatory SEVERO MILTON Not Available Start: 04-18-2024 End: 04-18-2024 ambulatory [facility] Start: 04-04-2024 ambulatory [facility] Start: 03-30-2024 End: 03-30-2024 ambulatory Mariah Prado [facility] Work Phone: Start: 03-30-2024 End: 03-30-2024 Departed Referred Mariah Prado PA-C Work Phone: [facility] Start: 02-24-2024 End: 02-24-2024 Bamboo flowsheet Severo Milton DPM Work Phone: [facility] Start: 02-24-2024 End: 02-24-2024 Bamboo flowsheet Severo Milton DPM Work Phone: [facility] Start: 02-24-2024 End: 02-24-2024 Office outpatient visit 15 minutes Severo Milton DPM Work Phone: [facility] Comment on above: Diabetes mellitus du e to underlying condition with diabetic polyneuropathy, unspecified whether assisted insulin use (CMS/HCC) (Primary Dx); Foot ulcer, left, with fat layer exposed (CMS/HCC) Start: 02-24-2024 End: 02-24-2024 ambulatory SEVERO MILTON Not Available Start: 02-03-2024 End: 02-03-2024 Patient encounter procedure Severo Milton DPM Work Phone: [facility] Comment on above: Diabetes mellitus du e to underlying condition with diabetic polyneuropathy, unspecified whether assisted insulin use (CMS/HCC) (Primary Dx); Foot ulcer, left, with fat layer exposed (CMS/HCC) Start: 02-03-2024 End: 02-03-2024 ambulatory SEVERO MILTON Not Available Start: 02-03-2024 End: 02-03-2024 Bamboo flowsheet Severo Milton DPM Work Phone: [facility] Start: 02-03-2024 End: 02-03-2024 Bamboo flowsheet Severo Milton DPM Work Phone: [facility] Start: 01-27-2024 End: 01-27-2024 ambulatory CIARAN PABON [facility] Start: 01-13-2024 End: 01-13-2024 ambulatory SEVERO MILTON Not Available Start: 01-13-2024 End: 01-13-2024 Office outpatient new 30 minutes Severo Milton DPM Work Phone: [facility] Comment on above: Foot ulcer, left, wi th fat layer exposed (CMS/HCC) (Primary Dx); Diabetes mellitus due to underlying condition with diabetic polyneuropathy, 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 (CMS/HCC); Pain due to onychomycosis of toenails of both feet Start: 12-28-2023 End: 12-28-2023 ambulatory CIARAN PABON [facility] Start: 11-05-2023 End: 11-05-2023 ambulatory KAYLAH SIMMONS [facility] Start: 09-06-2023 End: 09-09-2023 Evaluation and management of inpatient DEREK DIETRICH [facility] Comment on above: Congestive heart lauri lure, unspecified HF chronicity, unspecified heart failure type (HCC) (Primary Dx); Bradycardia; Digoxin toxicity, accidental or unintentional, initial encounter Start: 02-22-2022 End: 02-26-2022 Evaluation and management of inpatient DR KARY CATHERINE Facility:H1 Procedures Date Procedure Procedure Detail Performing Clinician Start: 09-09-2023 Glucose blood reagen t strip Mohammad Mashaleh DO Work Phone: Start: 09-09-2023 Glucose blood reagen t strip Debiammad Mashaleh DO Work Phone: Start: 09-09-2023 BASIC METABOLIC PANE L W/ REFLEX TO MG FOR LOW K Cathryn Orantes MD Work Phone: Start: 09-09-2023 End: 09-09-2023 Blood count complete auto&auto difrntl wbc Cathryn Orantes MD Work Phone: Start: 09-08-2023 Glucose blood reagen t strip Debiammad Diamondhaleh DO Work Phone: Start: 09-08-2023 Glucose blood reagen t strip Luis Diamondhaleh DO Work Phone: Start: 09-08-2023 Radex toe minimum 2 views Mohammad Mashaleh DO Work Phone: Start: 09-08-2023 Glucose blood reagen t strip Debiammad Mashaleh DO Work Phone: Start: 09-08-2023 Glucose blood reagen t strip Debiammad Mashaleh DO Work Phone: Start: 09-08-2023 BASIC METABOLIC PANE L W/ REFLEX TO MG FOR LOW K Cathryn Orantes MD Work Phone: Start: 09-08-2023 Blood count complete auto&auto difrntl wbc Cathryn Orantes MD Work Phone: Start: 09-07-2023 Glucose blood reagen t strip Luis Ryonet DO Work Phone: Start: 09-07-2023 Echo tthrc r-t 2d w/wom-mode compl spec&colr d Solomon Nadir DO Work Phone: Start: 09-07-2023 Glucose blood reagen t strip Luis [email or web address] DO Work Phone: Start: 09-07-2023 Glucose blood reagen t strip Luis Ryonet DO Work Phone: Start: 09-07-2023 BASIC METABOLIC PANE L W/ REFLEX TO MG FOR LOW K Cathryn Orantes MD Work Phone: Start: 09-07-2023 End: 09-07-2023 Blood count complete auto&auto difrntl wbc Cathryn Orantes MD Work Phone: Start: 09-07-2023 Urinalysis microscop ic only Julian Rosas MD Work Phone: Start: 09-07-2023 Urnls dip stick/tabl et rgnt auto w/o microscopy Julian Rosas MD Work Phone: Start: 09-06-2023 Basic metabolic pane l calcium total Brissa WHITLEY Work Phone: Start: 09-06-2023 Glucose blood reagen t strip Cathryn Orantes MD Work Phone: Start: 09-06-2023 Radiologic exam ches t single view Brissa WHITLEY Work Phone: Start: 09-06-2023 Assay of ferritin Marlene Orantes MD Work Phone: Start: 0 End: 09-06-2023 Basic metabolic panel calcium total Jaguar Cobos MD Work Phone: Start: 09-06-2023 Ecg routine ecg w/le ast 12 lds i&r only Jaguar Cobos MD Work Phone: Plan of Treatment Date Care Activity Detail Author Start: 07-13-2024 End: 07-13-2024 Patient encounter procedure 07/13/2024 1:20 PM EDT Office Visit [facility] [address] [facility] [address] [place] [id number] Severo Milton DPM [address] [address] Dry gangrene (CMS/HCC) (Primary Dx); Diabetes mellitus due to underlying condition with diabetic polyneuropathy, unspecified whether assisted insulin use (CMS/HCC); Pain due to onychomycosis of toenails of both feet [facility] Comment on above: Dry gangrene (CMS/HC C) (Primary Dx); Diabetes mellitus due to underlying condition with diabetic polyneuropathy, unspecified whether assisted insulin use (CMS/HCC); Pain due to onychomycosis of toenails of both feet Start: 03-30-2024 Urine culture [facility] Start: 03-30-2024 Bacteria identified in Urine by Culture Urine Culture [facility] Start: 02-24-2024 End: 02-24-2024 Patient encounter procedure [facility] Comment on above: Diabetes mellitus du e to underlying condition with diabetic polyneuropathy, 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 (CMS/HCC) (Primary Dx); Foot ulcer, left, with fat layer exposed (CMS/HCC) Start: 02-03-2024 End: 02-03-2024 Patient encounter procedure 02/03/2024 2:50 PM EST Office Visit [facility] [address] [facility] [address] [place] [phone] Severo Milton DPM [address] [address] [facility] Start: 10-21-2023 Influenza vaccination Flu vacc ine (Season Ended) [facility] Start: 09-06-2023 Annual Wellness Visi t (Medicare) Annual Wellness Visit (Medicare) [facility] Start: 2004 Respiratory Syncytia l Virus (RSV) or age 60 yrs+ (1 - 1-dose 60+ series) Respiratory Syncytial Virus (RSV) or age 60 yrs+ (1 - 1-dose 60+ series) [facility] Start: 09-17-1999 Screening for osteoporosis DEXA (modify frequency per FRAX score) [facility] Start: 1994 Shingles vaccine (1 of 2) Shingles vaccine (1 of 2) [facility] Start: 1962 Hepatitis C screening Hepatitis C sc reen [facility] Start: 1956 Depression Screen Depression Screen [facility] Start: 1954 Lipid panel Lipids [facility] [employer] Start: 1950 Pneumococcal 65+ yea rs Vaccine (1 of 2 - PCV) Pneumococcal 65+ years Vaccine (1 of 2 - PCV) [facility] Start: 03-18-1945 COVID-19 Vaccine (#1) COVID-19 Vacci ne (#1) [facility] Continuous pulse oximetry Pulse oximetry, continuous Respiratory Care Routine Every 4hr until discontinued starting 09/07/2023 [facility] [employer] Comment on above: Every 4hr until disc ontinued starting 09/07/2023 Glucose [Mass/volume ] in Serum or Plasma [facility] Comment on above: 4X Daily (AC & HS) u ntil discontinued starting 09/06/2023 As Needed until disc ontinued starting 09/06/2023 Nasal Cannula Oxygen Nasal Cannu la Oxygen Respiratory Care Routine Daily until discontinued starting 09/07/[address] [facility] Comment on above: Daily until disconti nued starting 09/07/2023 Oxygen therapy [[facility] Data Set] Initiate Oxygen Therapy Protocol Respiratory Care Routine As Needed until discontinued starting 09/06/[address] [facility] Comment on above: As Needed until disc ontinued starting 09/06/2023 End: 09-08-2023 Wound ostomy eval Wound ostomy eval Wound Ostomy Routine One Time for 1 Occurrences starting 09/08/2023 until 09/08/2023 [facility] Comment on above: One Time for 1 Occur rences starting 09/08/2023 until 09/08/2023 End: 09-08-2023 Wound ostomy eval and treat Wound ostomy eval and treat Wound Ostomy Routine One Time for 1 Occurrences starting 09/08/2023 until 09/08/2023 [facility] Comment on above: One Time for 1 Occur rences starting 09/08/2023 until 09/08/2023 Payers Date Payer Category Payer Self-pay [address] [place] [id number] 2018 Medicaid [id number] 2003 Medicare MEDICARE [id number] 1959 Medicaid [id number] 1959 Medicare [id number] 1945 Unknown [id number] 1944 Unknown [id number] 1944 Unknown [id number] 1944 Unknown [id number] 1944 Unknown [id number] 1944 Unknown [id number] 1944 Unknown [id number] Unknown [id number] Social History Date Type Detail Facility Start: 01-13-2024 Tobacco smoking stat [facility] Never smoked tobacco [facility] Start: 01-13-2024 Tobacco use and exposure Smokeless tobacco non-user [facility] Start: 01-13-2024 End: 07-13-2024 Alcoholic beverage intake Defer [facility] Start: 01-13-2024 End: 05-04-2024 History of Social function [facility] [employer] Start: 01-13-2024 End: 05-04-2024 Tobacco use panel [facility] [employer] Start: 1945 Sex assigned at Not on file B ON [employer] Tobacco smoking stat [facility] Unknown if ever smoked [place] [facility] Start: 04-01-2024 Sex Female (finding) [facility] Start: 1945 Sex Assigned At Female F [facility] Physical abuse Denies [facility] [employer] [facility] Clinical Notes 09-09-2023 to 07-13-2024 Severo Milton, PJ - 07/13/2024 1:20 PM EDTNiccristian Milton, PJ - 05/04/2024 1:50 PM ESTNiccristian Milton, PJ - 02/24/2024 1:30 PM ESTNiccristian Milton, PJ - 02/03/2024 2:50 PM EST Note Date & Type Note Facility 07-13-2024 History of Present illness Narrative Patient: Starla Sweeney : 1945 PCP: Christiano Peters MD SUBJECTIVE Patient present today for follow up of ulceration/dry gangrene to left and right bilateral great digits of feet. Pt denies any n/f/v/c. Patient states that they have been using the following treatments for the ulcer of iodosorb in [place] Pt is a DM2. 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 Patient presents today with a CC of elongated, thick nails. Pt states nails have been elongated and thick for many years and cause pain with ambulation in shoegear. Pt has tried previous treatment with minimal relief. Pt presents today for nail care and treatment. Pt is dm2 Allergies: Allergies Allergen Reactions Aspirin GI intolerance INTOLERANCE TO UNCOATED FULL-DOSE ASA Fluoxetine Unknown Hydrochlorothiazide Hives Penicillins Hives Pregabalin Hives Sertraline Unknown Sulfa Antibiotics Unknown Past Medical History: Past Medical History: Diagnosis Date COPD (chronic obstructive pulmonary disease) ([facility]) Diabetes ([facility]) Hypertension ([facility]) Medications: Current Outpatient Medications: atorvastatin (Lipitor) 20 MG tablet, Take 1 tablet by mouth in the morning., Disp: , Rfl: Calcium Plus Vitamin D 500-5 MG-MCG tablet, Take 1 tablet by mouth in the morning and 1 tablet in the evening., Disp: , Rfl: Dextromethorphan-quiNIDine 20-10 MG capsule, Take 1 capsule by mouth, Disp: , Rfl: digoxin (Lanoxin) 125 MCG tablet, Take 125 mcg by mouth Daily as needed, Disp: , Rfl: DULoxetine (Cymbalta) [address] capsule, Take 30 mg by mouth, Disp: , Rfl: famotidine (Pepcid) 40 MG tablet, Take 1 tablet by mouth at bedtime, Disp: , Rfl: ferrous sulfate 325 (65 Fe) MG EC tablet, Take 325 mg by mouth, Disp: , Rfl: furosemide (Lasix) 20 MG tablet, Take 1 tablet by mouth in the morning., Disp: , Rfl: lamoTRIgine (LaMICtal) 25 MG tablet, Take 125 mg by mouth in the morning., Disp: , Rfl: linaGLIPtin (Tradjenta) 5 MG tablet, Take 5 mg by mouth in the morning., Disp: , Rfl: magnesium oxide (Mag-Ox) 400 MG tablet, Take 1 tablet by mouth in the morning., Disp: , Rfl: melatonin 3 MG tablet, , Disp: , Rfl: Memantine HCl ER 21 MG capsule sustained-release 24 hr, Take 1 capsule by mouth in the morning., Disp: , Rfl: metFORMIN (Glucophage) 1000 MG tablet, Take 1 tablet by mouth at bedtime, Disp: , Rfl: midodrine (Proamatine) 5 MG tablet, Take 5 mg by mouth 3 (three) times a day as needed, Disp: , Rfl: nitroglycerin (Nitrostat) 0.4 MG SL tablet, Place 0.4 mg under the tongue, Disp: , Rfl: rivaroxaban (Xarelto) 20 MG tablet, Take 20 mg by mouth, Disp: , Rfl: sotalol (Betapace) 80 MG tablet, Take 80 mg by mouth in the morning and 80 mg in the evening., Disp: , Rfl: spironolactone (Aldactone) 50 MG tablet, Take 1 tablet by mouth in the morning., Disp: , Rfl: Social History: Social History Socioeconomic History Marital status: Unknown Spouse name: Not on file Number of children: Not on file Years of education: Not on file Highest education level: Not on file Occupational History Not on file Tobacco Use Smoking status: Never Smokeless tobacco: Never Vaping Use Vaping status: Never Used Substance and Sexual Activity Alcohol use: Defer Drug use: Never Sexual activity: Not Currently Other Topics Concern Not on file Social History Narrative Not on file Social Drivers of Health Financial Resource Strain: Not on file Food Insecurity: Not on file Transportation Needs: Not on file Physical Activity: Not on file Stress: Not on file Social Connections: Not on file Intimate Partner Violence: Unknown (05/13/2023) Received from [facility] Fear of Current or Ex-Partner: Not on file Emotionally Abused: Not on file Physically Abused: Not on file Sexually Abused: Not on file Physically or Sexually Abused: Not on file Housing Stability: Not on file ROS: General: denies fever, chills, fatigue, malaise Gastrointestinal: denies abdominal pain, ulcers, or changes in appetite or bowel habits Musculoskeletal: Positive history of generalized arthritis, denies loss of strength, pain to hip, knees, back Cardiovascular: denies CP, palpitations, positive history of atrial fibrillation and on blood thinner and positive history of CVA x2 in the past OBJECTIVE LE EXAM: DERM: Elongated thick yellow crumbly nails digits 1 through 10. Negative hair growth with thin shiny atrophic skin bilaterally diminishedMedial aspect of the left and right hallux great toe dry black eschar with negative drainage and negative erythema VASC: Negative DP and negative PT pedal pulses NEURO: 5.07 Buckner Fadumo monofilament test diminished to digits and forefoot bilaterally 125Hz tuning fork diminished to 1st MPJ bilaterally ORTHO: Positive pain on palpation to toenails of the left 1,2,3,4,5 toes and right 1,2,3,4,5 toes ASSESSMENT 1. Dry gangrene ([facility]/HCC) 2. Diabetes mellitus due to underlying condition with diabetic polyneuropathy, unspecified whether assisted insulin use ([facility]) 3. Pain due to onychomycosis of toenails of both feet PLAN Continue with Iodosorb it in fdc daily with dry sterile dressing Debride nails in length and thickness digits 1 through 10 Patient educated today on proper diabetic foot care including monitoring feet daily for any signs of infection openings in the skin or irregularities to both feet. 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 Pt denies any n/f/v/c. Patient states that they have been using the following treatments for the ulcer of iodosorb in [place] Pt is a DM2. 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 Patient presents today with a CC of elongated, thick nails. Pt states nails have been elongated and thick for many years and cause pain with ambulation in shoegear. Pt has tried previous treatment with minimal relief. Pt presents today for nail care and treatment. Pt is dm2 Allergies: Allergies Allergen Reactions Aspirin GI intolerance INTOLERANCE TO UNCOATED FULL-DOSE ASA Fluoxetine Unknown Hydrochlorothiazide Hives Penicillins Hives Pregabalin Hives Sertraline Unknown Sulfa Antibiotics Unknown Past Medical History: Past Medical History: Diagnosis Date COPD (chronic obstructive pulmonary disease) ([facility]) Diabetes ([facility]) Hypertension ([facility]) Medications: Current Outpatient Medications: atorvastatin (Lipitor) 20 MG tablet, Take 1 tablet by mouth in the morning., Disp: , Rfl: Calcium Plus Vitamin D 500-5 MG-MCG tablet, Take 1 tablet by mouth in the morning and 1 tablet in the evening., Disp: , Rfl: Dextromethorphan-quiNIDine 20-10 MG capsule, Take 1 capsule by mouth, Disp: , Rfl: digoxin (Lanoxin) 125 MCG tablet, Take 125 mcg by mouth Daily as needed, Disp: , Rfl: DULoxetine (Cymbalta) [address] capsule, Take 30 mg by mouth, Disp: , Rfl: famotidine (Pepcid) 40 MG tablet, Take 1 tablet by mouth at bedtime, Disp: , Rfl: ferrous sulfate 325 (65 Fe) MG EC tablet, Take 325 mg by mouth, Disp: , Rfl: furosemide (Lasix) 20 MG tablet, Take 1 tablet by mouth in the morning., Disp: , Rfl: lamoTRIgine (LaMICtal) 25 MG tablet, Take 125 mg by mouth in the morning., Disp: , Rfl: linaGLIPtin (Tradjenta) 5 MG tablet, Take 5 mg by mouth in the morning., Disp: , Rfl: magnesium oxide (Mag-Ox) 400 MG tablet, Take 1 tablet by mouth in the morning., Disp: , Rfl: melatonin 3 MG tablet, , Disp: , Rfl: Memantine HCl ER 21 MG capsule sustained-release 24 hr, Take 1 capsule by mouth in the morning., Disp: , Rfl: metFORMIN (Glucophage) 1000 MG tablet, Take 1 tablet by mouth at bedtime, Disp: , Rfl: midodrine (Proamatine) 5 MG tablet, Take 5 mg by mouth 3 (three) times a day as needed, Disp: , Rfl: nitroglycerin (Nitrostat) 0.4 MG SL tablet, Place 0.4 mg under the tongue, Disp: , Rfl: rivaroxaban (Xarelto) 20 MG tablet, Take 20 mg by mouth, Disp: , Rfl: sotalol (Betapace) 80 MG tablet, Take 80 mg by mouth in the morning and 80 mg in the evening., Disp: , Rfl: spironolactone (Aldactone) 50 MG tablet, Take 1 tablet by mouth in the morning., Disp: , Rfl: Social History: Social History Socioeconomic History Marital status: Unknown Spouse name: Not on file Number of children: Not on file Years of education: Not on file Highest education level: Not on file Occupational History Not on file Tobacco Use Smoking status: Never Smokeless tobacco: Never Vaping Use Vaping status: Never Used Substance and Sexual Activity Alcohol use: Defer Drug use: Never Sexual activity: Not Currently Other Topics Concern Not on file Social History Narrative Not on file Social Drivers of Health Financial Resource Strain: Not on file Food Insecurity: Not on file Transportation Needs: Not on file Physical Activity: Not on file Stress: Not on file Social Connections: Not on file Intimate Partner Violence: Unknown (05/13/2023) Received from [facility] [place] [facility] Fear of Current or Ex-Partner: Not on file Emotionally Abused: Not on file Physically Abused: Not on file Sexually Abused: Not on file Physically or Sexually Abused: Not on file Housing Stability: Not on file ROS: General: denies fever, chills, fatigue, malaise Gastrointestinal: denies abdominal pain, ulcers, or changes in appetite or bowel habits Musculoskeletal: Positive history of generalized arthritis, denies loss of strength, pain to hip, knees, back Cardiovascular: denies CP, palpitations, positive history of atrial fibrillation and on blood thinner and positive history of CVA x2 in the past OBJECTIVE LE EXAM: DERM: Elongated thick yellow crumbly nails digits 1 through 10. Negative hair growth with thin shiny atrophic skin bilaterally Medial aspect of the left and right hallux great toe dry black eschar with negative drainage and negative erythema VASC: Negative DP and negative PT pedal pulses NEURO: 5.07 Buckner Fadumo monofilament test diminished to digits and forefoot bilaterally 125Hz tuning fork diminished to 1st MPJ bilaterally ORTHO: Positive pain on palpation to toenails of the left 1,2,3,4,5 toes and right 1,2,3,4,5 toes ASSESSMENT 1. Diabetes mellitus due to underlying condition with diabetic polyneuropathy, unspecified whether assisted insulin use ([facility]) 2. Pain due to onychomycosis of toenails of both feet 3. Dry gangrene ([facility]) PLAN Continue with Iodosorb it in fdc daily with dry sterile dressing Debride nails in length and thickness digits 1 through 10 Patient educated today on proper diabetic foot care including monitoring feet daily for any signs of infection openings in the skin or irregularities to both feet. Patient had a diabetic neurological exam today to both their feet and discussed proper shoe gear Severo Milton DPM documented in this encounter [facility] 04-18-2024 Note DC Electrophysiology Consult Note DC Cardiology [facility] Reason for visit: Patient here for follow up DCCV in Jan 2024. 04/19/24 Still having intermittent chest pain. She had EKG, labs, and CXR a few weeks ago while in the ED for UTI. Has epistaxis sometimes, but her son says not very often . They sometimes think it may be related to her O2 tubes drying her out. She is in SR today based on EKG. Ct Amio and have routine checks with TSH and lFT/ PFT HPI: Starla Sweeney is a 78 y.o. year old with past medical history of diabetes, atrial fibrillation, CAD s/p PCI, HFpEF. Patient here for a-fib management per Dr. Ford. Patient has had atrial fibrillation for past 6-7 years. Has been managed on Sotalol and Xarelto. Patient is accompanied by her son today, she is able to give limited information herself. She denies any chest pain, shortness of breath. She admits to feeling occasional palpitations at night. She has never been cardioverted and feels that she has been in it all the time for past 2-3months. 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 Patient family is requesting further management strategies for atrial fibrillation. PMH: Past Medical History: Diagnosis Date Abnormal ECG Arrhythmia Atrial fibrillation ([facility]) CHF (congestive heart failure) ([facility]) Coronary artery disease Diabetes ([facility]) Stroke ([facility]) PSH: No past surgical history on file. SH: Social Determinants of Health Tobacco Use: Low Risk (02/24/2024) Received from [facility] Healthcare Patient History Smoking Tobacco Use: Never Smokeless Tobacco Use: Never Passive Exposure: Not on file Alcohol Use: Not on file Financial Resource Strain: Not on file Food Insecurity: Not on file Transportation Needs: Not on file Physical Activity: Not on file Stress: Not on file Social Connections: Not on file Intimate Partner Violence: Unknown (05/13/2023) [place] Safety & Environment Fear of Current or Ex-Partner: Not on file Emotionally Abused: Not on file Physically Abused: Not on file Sexually Abused: Not on file Physically or Sexually Abused: Not on file Depression: Not on file Housing Stability: Not on file Utilities: Not on file Health Literacy: Not on file Allergies: Allergies Allergen Reactions Aspirin GI intolerance INTOLERANCE TO UNCOATED FULL-DOSE ASA Hydrochlorothiazide Unknown Lyrica [Pregabalin] Unknown Penicillins Unknown Prozac [Fluoxetine] Unknown Sulfa (Sulfonamide Antibiotics) Unknown Tetanus Vaccines And Toxoid Unknown Zoloft [Sertraline] Unknown Weight: No weight available Visit Vitals BP 130/66 (BP Location: Right wrist, Patient Position: Sitting) Pulse 60 Ht 1.676 m (5' 6 ) SpO2 96% BMI 32.28 kg/m??? OB Status Postmenopausal Smoking Status Former BSA 2.05 m??? Meds: Current Outpatient Medications on File Prior to Visit Medication Sig Dispense Refill amiodarone (Pacerone) 200 mg tablet Take 200 mg by mouth in the morning. atorvastatin (Lipitor) 20 mg tablet Take 1 tablet by mouth in the morning. calcium carbonate-vitamin D3 500 mg-5 mcg (200 unit) tablet Take 1 tablet by mouth in the morning and at bedtime. dextromethorphan-quinidine (Nuedexta) 20-10 mg capsule Take 1 capsule by mouth two times daily. DULoxetine (Cymbalta) [address] capsule Take 30 mg by mouth. famotidine (Pepcid) 40 mg tablet Take 1 tablet by mouth at bedtime. ferrous sulfate 325 (65 Fe) MG EC tablet Take 325 mg by mouth. furosemide (Lasix) 20 mg tablet Take 1 tablet by mouth in the morning. lamoTRIgine (LaMICtal) 100 mg tablet Take 100 mg by mouth in the morning. lamoTRIgine (LaMICtal) 25 mg tablet Take 125 mg by mouth in the morning. linaGLIPtin (Tradjenta) 5 mg tablet Take 5 mg by mouth in the morning. magnesium oxide (Mag-Ox) 200 mg split tablet Take 2 tablets by mouth in the morning. memantine 21 mg capsule,sprinkle,ER 24hr Take 1 capsule by mouth in the morning. metFORMIN (Glucophage) 1,000 mg tablet Take 1 tablet by mouth at bedtime. midodrine (Proamatine) 5 mg tablet Take 5 mg by mouth if needed in the morning, at noon, and at bedtime. nitroglycerin (Nitrostat) 0.[address] 0.4 mg under the tongue. rivaroxaban (Xarelto) 20 mg tablet Take 20 mg by mouth. spironolactone (Aldactone) 50 mg tablet Take 1 tablet by mouth in the morning. No current facility-administered medications on file prior to visit. ROS: Review of Systems Cardiovascular: Positive for chest pain. Respiratory: Positive for shortness of breath. All other systems reviewed and are negative. Physical Exam: Constitutional General Appearance: well-nourished, well-developed, appears stated age Level of Distress: comfortable Psychiatric Mental Status: alert, normal affect Orientation: oriented to time, place, and person Insight: good judgement Eyes Lids and Conjunctivae: non-injected, no xanthelasma ENMT Ears: no lesions on (more content not included)... [facility] 02-24-2024 History of Present illness Narrative Patient: Starla Sweeney : 1945 PCP: No primary care provider on file. SUBJECTIVE Patient present today for follow up of ulceration to left foot. Pt denies any n/f/v/c. Patient states that they have been using the following treatments for the ulcer of iodosorb in [place] Pt is a DM2. 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 Presents today with son Allergies: Allergies Allergen Reactions Aspirin GI intolerance INTOLERANCE TO UNCOATED FULL-DOSE ASA Fluoxetine Unknown Hydrochlorothiazide Hives Penicillins Hives Pregabalin Hives Sertraline Unknown Sulfa Antibiotics Unknown Past Medical History: Past Medical History: Diagnosis Date COPD (chronic obstructive pulmonary disease) ([facility]) Diabetes ([facility]) Hypertension ([facility]) Medications: Current Outpatient Medications: atorvastatin (Lipitor) 20 MG tablet, Take 1 tablet by mouth in the morning., Disp: , Rfl: Calcium Plus Vitamin D 500-5 MG-MCG tablet, Take 1 tablet by mouth in the morning and 1 tablet in the evening., Disp: , Rfl: Dextromethorphan-quiNIDine 20-10 MG capsule, Take 1 capsule by mouth, Disp: , Rfl: digoxin (Lanoxin) 125 MCG tablet, Take 125 mcg by mouth Daily as needed, Disp: , Rfl: DULoxetine (Cymbalta) [address] capsule, Take 30 mg by mouth, Disp: , Rfl: famotidine (Pepcid) 40 MG tablet, Take 1 tablet by mouth at bedtime, Disp: , Rfl: ferrous sulfate 325 (65 Fe) MG EC tablet, Take 325 mg by mouth, Disp: , Rfl: furosemide (Lasix) 20 MG tablet, Take 1 tablet by mouth in the morning., Disp: , Rfl: lamoTRIgine (LaMICtal) 25 MG tablet, Take 125 mg by mouth in the morning., Disp: , Rfl: linaGLIPtin (Tradjenta) 5 MG tablet, Take 5 mg by mouth in the morning., Disp: , Rfl: magnesium oxide (Mag-Ox) 400 MG tablet, Take 1 tablet by mouth in the morning., Disp: , Rfl: melatonin 3 MG tablet, , Disp: , Rfl: Memantine HCl ER 21 MG capsule sustained-release 24 hr, Take 1 capsule by mouth in the morning., Disp: , Rfl: metFORMIN (Glucophage) 1000 MG tablet, Take 1 tablet by mouth at bedtime, Disp: , Rfl: midodrine (Proamatine) 5 MG tablet, Take 5 mg by mouth 3 (three) times a day as needed, Disp: , Rfl: nitroglycerin (Nitrostat) 0.4 MG SL tablet, Place 0.4 mg under the tongue, Disp: , Rfl: rivaroxaban (Xarelto) 20 MG tablet, Take 20 mg by mouth, Disp: , Rfl: sotalol (Betapace) 80 MG tablet, Take 80 mg by mouth in the morning and 80 mg in the evening., Disp: , Rfl: spironolactone (Aldactone) 50 MG tablet, Take 1 tablet by mouth in the morning., Disp: , Rfl: Social History: Social History Socioeconomic History Marital status: Unknown Spouse name: Not on file Number of children: Not on file Years of education: Not on file Highest education level: Not on file Occupational History Not on file Tobacco Use Smoking status: Never Smokeless tobacco: Never Vaping Use Vaping status: Never Used Substance and Sexual Activity Alcohol use: Defer Drug use: Never Sexual activity: Not Currently Other Topics Concern Not on file Social History Narrative Not on file Social Drivers of Health Financial Resource Strain: Not on file Food Insecurity: Not on file Transportation Needs: Not on file Physical Activity: Not on file Stress: Not on file Social Connections: Not on file Intimate Partner Violence: Unknown (05/13/2023) Received from [facility] [place] Safety & Environment Fear of Current or Ex-Partner: Not on file Emotionally Abused: Not on file Physically Abused: Not on file Sexually Abused: Not on file Physically or Sexually Abused: Not on file Housing Stability: Not on file ROS: General: denies fever, chills, fatigue, malaise Gastrointestinal: denies abdominal pain, ulcers, or changes in appetite or bowel habits Musculoskeletal: Positive history of generalized arthritis, denies loss of strength, pain to hip, knees, back Cardiovascular: denies CP, palpitations, positive history of atrial fibrillation and on blood thinner and positive history of CVA x2 in the past OBJECTIVE LE EXAM: DERM: Elongated thick yellow crumbly nails digits 1 through 10. Negative hair growth with thin shiny atrophic skin bilaterally Medial aspect of the left great toe has a 0.4 cm x 0.4 cm cast scar with negative erythema negative drainage VASC: Negative DP and negative PT pedal pulses NEURO: 5.07 Buckner Fadumo monofilament test diminished to digits and forefoot bilaterally 125Hz tuning fork diminished to 1st MPJ bilaterally ORTHO: Positive pain on palpation to nails 1 through 10 ASSESSMENT 1. 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 Foot ulcer, left, with fat layer exposed ([facility]) PLAN Continue with Iodosorb it in fdc daily with dry sterile dressing and has black eschar and needs to be protected otherwise appears to be healing and follow up in 2 months Severo Mliton DPM documented in this encounter [facility] 02-03-2024 History of Present illness Narrative Patient: Starla Sweeney : 1945 PCP: No primary care provider on file. SUBJECTIVE Patient present today for follow up of ulceration to left foot. Pt denies any n/f/v/c. Patient states that they have been using the following treatments for the ulcer of iodosorb in [place] Pt is a DM2. 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 Presents today with son Allergies: Allergies Allergen Reactions Aspirin GI intolerance INTOLERANCE TO UNCOATED FULL-DOSE ASA Fluoxetine Unknown Hydrochlorothiazide Hives Penicillins Hives Pregabalin Hives Sertraline Unknown Sulfa Antibiotics Unknown Past Medical History: Past Medical History: Diagnosis Date COPD (chronic obstructive pulmonary disease) ([facility]) Diabetes ([facility]) Hypertension ([facility]) Medications: Current Outpatient Medications: atorvastatin (Lipitor) 20 MG tablet, Take 1 tablet by mouth in the morning., Disp: , Rfl: Calcium Plus Vitamin D 500-5 MG-MCG tablet, Take 1 tablet by mouth in the morning and 1 tablet in the evening., Disp: , Rfl: Dextromethorphan-quiNIDine 20-10 MG capsule, Take 1 capsule by mouth, Disp: , Rfl: digoxin (Lanoxin) 125 MCG tablet, Take 125 mcg by mouth Daily as needed, Disp: , Rfl: DULoxetine (Cymbalta) [address] capsule, Take 30 mg by mouth, Disp: , Rfl: famotidine (Pepcid) 40 MG tablet, Take 1 tablet by mouth at bedtime, Disp: , Rfl: ferrous sulfate 325 (65 Fe) MG EC tablet, Take 325 mg by mouth, Disp: , Rfl: furosemide (Lasix) 20 MG tablet, Take 1 tablet by mouth in the morning., Disp: , Rfl: lamoTRIgine (LaMICtal) 25 MG tablet, Take 125 mg by mouth in the morning., Disp: , Rfl: linaGLIPtin (Tradjenta) 5 MG tablet, Take 5 mg by mouth in the morning., Disp: , Rfl: magnesium oxide (Mag-Ox) 400 MG tablet, Take 1 tablet by mouth in the morning., Disp: , Rfl: melatonin 3 MG tablet, , Disp: , Rfl: Memantine HCl ER 21 MG capsule sustained-release 24 hr, Take 1 capsule by mouth in the morning., Disp: , Rfl: metFORMIN (Glucophage) 1000 MG tablet, Take 1 tablet by mouth at bedtime, Disp: , Rfl: midodrine (Proamatine) 5 MG tablet, Take 5 mg by mouth 3 (three) times a day as needed, Disp: , Rfl: nitroglycerin (Nitrostat) 0.4 MG SL tablet, Place 0.4 mg under the tongue, Disp: , Rfl: rivaroxaban (Xarelto) 20 MG tablet, Take 20 mg by mouth, Disp: , Rfl: sotalol (Betapace) 80 MG tablet, Take 80 mg by mouth in the morning and 80 mg in the evening., Disp: , Rfl: spironolactone (Aldactone) 50 MG tablet, Take 1 tablet by mouth in the morning., Disp: , Rfl: Social History: Social History Socioeconomic History Marital status: Unknown Spouse name: Not on file Number of children: Not on file Years of education: Not on file Highest education level: Not on file Occupational History Not on file Tobacco Use Smoking status: Never Smokeless tobacco: Never Vaping Use Vaping status: Never Used Substance and Sexual Activity Alcohol use: Defer Drug use: Never Sexual activity: Not Currently Other Topics Concern Not on file Social History Narrative Not on file Social Drivers of Health Financial Resource Strain: Not on file Food Insecurity: Not on file Transportation Needs: Not on file Physical Activity: Not on file Stress: Not on file Social Connections: Not on file Intimate Partner Violence: Unknown (05/13/2023) Received from [facility] Safety & Environment Fear of Current or Ex-Partner: Not on file Emotionally Abused: Not on file Physically Abused: Not on file Sexually Abused: Not on file Physically or Sexually Abused: Not on file Housing Stability: Not on file ROS: General: denies fever, chills, fatigue, malaise Gastrointestinal: denies abdominal pain, ulcers, or changes in appetite or bowel habits Musculoskeletal: Positive history of generalized arthritis, denies loss of strength, pain to hip, knees, back Cardiovascular: denies CP, palpitations, positive history of atrial fibrillation and on blood thinner and positive history of CVA x2 in the past OBJECTIVE LE EXAM: DERM: Elongated thick yellow crumbly nails digits 1 through 10. Negative hair growth with thin shiny atrophic skin bilaterally Medial aspect of the left great toe has a 0.4 cm x 0.5 cm x 0.2 cm subcutaneous thickness depth ulceration with negative erythema negative probe to bone with positive fibrous slough and slight serous drainage VASC: Negative DP and negative PT pedal pulses NEURO: 5.07 Buckner Fadumo monofilament test diminished to digits and forefoot bilaterally 125Hz tuning fork diminished to 1st MPJ bilaterally ORTHO: Positive pain on palpation to nails 1 through 10 ASSESSMENT 1. 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 Foot ulcer, left, with fat layer exposed ([facility]) PLAN Patient to have fdc apply Iodosorb every other day with dry sterile dressing to the ulcer to the left great toe and contact Podiatry if any issues including signs of infection. Patient educated today on proper diabetic foot care including monitoring feet daily for any signs of infection openings in the skin or irregularities to both feet. Patient had a diabetic neurological exam today to both their feet and discussed proper shoe gear. Severo Milton DPM documented in this encounter [facility] 01-27-2024 Note DIRECT CARDIOVERSION PROCEDURE NOTE Date: 01/27/2024. Type of procedure: DC Cardioversion. Performed by: Ciaran Pabon MD Informed consent: Signed by patient. Preparation and technique: Patient was brought into the procedure room. After an informed consent was obtained following a discussion with the patient where I explained the risk and benefit of the procedure that is not limited to skin garcia, fluid in the lungs, heart attack, stroke, or even , though that is very rare. Patches were placed in anteroposterior direction and once patient was made comfortable with Versed 2mg and Fentanyl 12.5mcg. Following sedation, the patient underwent synchronized cardioversion using 360J which failed to converted to sinus rhythm. Defibrillation was reattempted afterrepositioning of patches and 360J which converted to junctional and later to sinus. Post procedure, the patient was stable. No complications noted. Plan: Continue anticoagulation and continue Amiodarone. Ciaran Pabon MD Cardiac Electrophysiology [facility] 01-27-2024 Note Patient: Kelly Bonilla room Procedure Information Date/Time: 01/27/24 1200 Procedure: Cardioversion - PC APPROVED Location: [facility] / [facility] (Cath) Providers: Ciaran Pabon MD Clinical information reviewed: Allergies OB Status Physical Exam Airway Mallampati: II TM distance: >3 FB Neck ROM: full Cardiovascular Dental Pulmonary Abdominal Anesthesia Plan ASA 3 CSE Anesthetic plan and risks discussed with patient. Use of blood products discussed with patient who. Additional Equipment Requests [facility] 01-13-2024 History of Present illness Narrative Patient: Starla Sweeney : 1945 PCP: No primary care provider on file. SUBJECTIVE This is a 78 y.o. female that presents today with a CC of elongated, thick nails. Pt states nails have been elongated and thick for many years and cause pain with ambulation in shoegear. Pt has tried previous treatment with minimal relief. Pt presents today for nail care and treatment. Patient is DM2 with peripheral neuropathy and presents today with her son Patient also has 2 months standing left great toe ulceration that is been present with initial scab reported by patient's son and has had treatments unknown treatment for the past 2 months had nearby fdc. Patient denies n/f/v/c. She denies any pain to the area. 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 Allergies: Allergies Allergen Reactions Aspirin GI intolerance INTOLERANCE TO UNCOATED FULL-DOSE ASA Fluoxetine Unknown Hydrochlorothiazide Hives Penicillins Hives Pregabalin Hives Sertraline Unknown Sulfa Antibiotics Unknown Past Medical History: Past Medical History: Diagnosis Date COPD (chronic obstructive pulmonary disease) (CMS/HCC) Diabetes (CMS/HCC) Hypertension (CMS/HCC) Medications: Current Outpatient Medications: atorvastatin (Lipitor) 20 MG tablet, Take 1 tablet by mouth in the morning., Disp: , Rfl: Calcium Plus Vitamin D 500-5 MG-MCG tablet, Take 1 tablet by mouth in the morning and 1 tablet in the evening., Disp: , Rfl: Dextromethorphan-quiNIDine 20-10 MG capsule, Take 1 capsule by mouth, Disp: , Rfl: digoxin (Lanoxin) 125 MCG tablet, Take 125 mcg by mouth Daily as needed, Disp: , Rfl: DULoxetine (Cymbalta) [address] capsule, Take 30 mg by mouth, Disp: , Rfl: famotidine (Pepcid) 40 MG tablet, Take 1 tablet by mouth at bedtime, Disp: , Rfl: ferrous sulfate 325 (65 Fe) MG EC tablet, Take 325 mg by mouth, Disp: , Rfl: furosemide (Lasix) 20 MG tablet, Take 1 tablet by mouth in the morning., Disp: , Rfl: lamoTRIgine (LaMICtal) 25 MG tablet, Take 125 mg by mouth in the morning., Disp: , Rfl: linaGLIPtin (Tradjenta) 5 MG tablet, Take 5 mg by mouth in the morning., Disp: , Rfl: magnesium oxide (Mag-Ox) 400 MG tablet, Take 1 tablet by mouth in the morning., Disp: , Rfl: melatonin 3 MG tablet, , Disp: , Rfl: Memantine HCl ER 21 MG capsule sustained-release 24 hr, Take 1 capsule by mouth in the morning., Disp: , Rfl: metFORMIN (Glucophage) 1000 MG tablet, Take 1 tablet by mouth at bedtime, Disp: , Rfl: midodrine (Proamatine) 5 MG tablet, Take 5 mg by mouth 3 (three) times a day as needed, Disp: , Rfl: nitroglycerin (Nitrostat) 0.4 MG SL tablet, Place 0.4 mg under the tongue, Disp: , Rfl: rivaroxaban (Xarelto) 20 MG tablet, Take 20 mg by mouth, Disp: , Rfl: sotalol (Betapace) 80 MG tablet, Take 80 mg by mouth in the morning and 80 mg in the evening., Disp: , Rfl: spironolactone (Aldactone) 50 MG tablet, Take 1 tablet by mouth in the morning., Disp: , Rfl: Social History: Social History Socioeconomic History Marital status: Unknown Spouse name: Not on file Number of children: Not on file Years of education: Not on file Highest education level: Not on file Occupational History Not on file Tobacco Use Smoking status: Never Smokeless tobacco: Never Vaping Use Vaping status: Never Used Substance and Sexual Activity Alcohol use: Defer Drug use: Never Sexual activity: Not Currently Other Topics Concern Not on file Social History Narrative Not on file Social Drivers of Health Financial Resource Strain: Not on file Food Insecurity: Not on file Transportation Needs: Not on file Physical Activity: Not on file Stress: Not on file Social Connections: Not on file Intimate Partner Violence: Unknown (05/13/2023) Received from [facility] [place] Safety & Environment Fear of Current or Ex-Partner: Not on file Emotionally Abused: Not on file Physically Abused: Not on file Sexually Abused: Not on file Physically or Sexually Abused: Not on file Housing Stability: Not on file ROS: General: denies fever, chills, fatigue, malaise Gastrointestinal: denies abdominal pain, ulcers, or changes in appetite or bowel habits Musculoskeletal: Positive history of generalized arthritis, denies loss of strength, pain to hip, knees, back Cardiovascular: denies CP, palpitations, positive history of atrial fibrillation and on blood thinner and positive history of CVA x2 in the past OBJECTIVE LE EXAM: DERM: Elongated thick yellow crumbly nails digits 1 through 10. Negative hair growth with thin shiny atrophic skin bilaterally Medial aspect of the left great toe has a 0.4 cm x 0.5 cm x 0.2 cm subcutaneous thickness depth ulceration with negative erythema negative probe to bone with positive fibrous slough and slight serous drainage VASC: Negative DP and negative PT pedal pulses NEURO: 5.07 Buckner Fadumo monofilament test diminished to digits and forefoot bilaterally 125Hz tuning fork diminished to 1st MPJ bilaterally ORTHO: Positive pain on palpation to nails 1 through 10 ASSESSMENT 1. 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 Pain due to onychomycosis of toenails of both feet 3. Foot ulcer, left, with fat layer exposed ([facility] [facility]) PLAN Discussed proper foot care with patient today. Debride nails in length and thickness digits 1 through 10 Patient educated today on proper diabetic foot care including monitoring feet daily for any signs of infection openings in the skin or irregularities to both feet. Patient had a diabetic neurological exam today to both their feet and discussed proper shoe gear. Patient to have fdc apply Iodosorb every other day with dry sterile dressing to the ulcer to the left great toe and contact Podiatry if any issues including signs of infection. Patient educated today on proper diabetic foot care including monitoring feet daily for any signs of infection openings in the skin or irregularities to both feet. Patient had a diabetic neurological exam today to both their feet and discussed proper shoe gear. Severo Milton DPM documented in this encounter [facility] 12-28-2023 Note DC Electrophysiology Consult Note DC Cardiology - [facility] Reason for visit: Afib HPI: Starla Sweeney is a 78 y.o. year old with past medical history of diabetes, atrial fibrillation, CAD s/p PCI, HFpEF. Patient here for a-fib management per Dr. Ford. Patient has had atrial fibrillation for past 6-7 years. Has been managed on Sotalol and Xarelto. Patient is accompanied by her son today, she is able to give limited information herself. She denies any chest pain, shortness of breath. She admits to feeling occasional palpitations at night. She has never been cardioverted and feels that she has been in it all the time for past 2-3months. 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 Patient family is requesting further management strategies for atrial fibrillation. PMH: Past Medical History: Diagnosis Date Abnormal ECG Arrhythmia Atrial fibrillation ([facility]/HCC) CHF (congestive heart failure) ([facility]/HCC) Coronary artery disease Diabetes ([facility]/HCC) Stroke ([facility]/HCC) PSH: No past surgical history on file. SH: Social Determinants of Health Tobacco Use: Medium Risk (12/28/2023) Patient History Smoking Tobacco Use: Former Smokeless Tobacco Use: Never Passive Exposure: Not on file Alcohol Use: Not on file Financial Resource Strain: Not on file Food Insecurity: Not on file Transportation Needs: Not on file Physical Activity: Not on file Stress: Not on file Social Connections: Not on file Intimate Partner Violence: Unknown (05/13/2023) DC Safety & Environment Fear of Current or Ex-Partner: Not on file Emotionally Abused: Not on file Physically Abused: Not on file Sexually Abused: Not on file Physically or Sexually Abused: Not on file Depression: Not on file Housing Stability: Not on file Utilities: Not on file Allergies: Allergies Allergen Reactions Aspirin GI intolerance INTOLERANCE TO UNCOATED FULL-DOSE ASA Hydrochlorothiazide Unknown Lyrica [Pregabalin] Unknown Penicillins Unknown Prozac [Fluoxetine] Unknown Sulfa (Sulfonamide Antibiotics) Unknown Tetanus Vaccines And Toxoid Unknown Zoloft [Sertraline] Unknown Weight: No weight available Visit Vitals BP 108/68 (BP Location: Right arm, Patient Position: Sitting) Pulse 102 Ht 1.676 m (5' 6 ) SpO2 97% BMI 32.28 kg/m??? Smoking Status Former BSA 2.05 m??? Meds: Current Outpatient Medications on File Prior to Visit Medication Sig Dispense Refill atorvastatin (Lipitor) 20 mg tablet Take 1 tablet by mouth in the morning. calcium carbonate-vitamin D3 500 mg-5 mcg (200 unit) tablet Take 1 tablet by mouth in the morning and at bedtime. dextromethorphan-quinidine (Nuedexta) 20-10 mg capsule Take 1 capsule by mouth. DULoxetine (Cymbalta) [address] capsule Take 30 mg by mouth. famotidine (Pepcid) 40 mg tablet Take 1 tablet by mouth at bedtime. ferrous sulfate 325 (65 Fe) MG EC tablet Take 325 mg by mouth. furosemide (Lasix) 20 mg tablet Take 1 tablet by mouth in the morning. lamoTRIgine (LaMICtal) 25 mg tablet Take 125 mg by mouth in the morning. linaGLIPtin (Tradjenta) 5 mg tablet Take 5 mg by mouth in the morning. magnesium oxide (Mag-Ox) 200 mg split tablet Take 1 tablet by mouth in the morning. memantine 21 mg capsule,sprinkle,ER 24hr Take 1 capsule by mouth in the morning. metFORMIN (Glucophage) 1,000 mg tablet Take 1 tablet by mouth at bedtime. midodrine (Proamatine) 5 mg tablet Take 5 mg by mouth if needed in the morning, at noon, and at bedtime. nitroglycerin (Nitrostat) 0.[address] 0.4 mg under the tongue. rivaroxaban (Xarelto) 20 mg tablet Take 20 mg by mouth. sotalol (Betapace) 80 mg tablet Take 80 mg by mouth two times daily. spironolactone (Aldactone) 50 mg tablet Take 1 tablet by mouth in the morning. [DISCONTINUED] acetaminophen (Tylenol) 500 mg tablet Take 2 tablets by mouth in the morning. [DISCONTINUED] artificial tear,ortzu-qap-rqw, 0.1-0.3-0.2 % drops 1 drop. [DISCONTINUED] clobetasol (Temovate) 0.05 % cream Apply topically. [DISCONTINUED] collagenase 250 unit/gram ointment Apply topically in the morning. [DISCONTINUED] nystatin (Mycostatin) 100,000 unit/gram powder Apply topically. [DISCONTINUED] polyethylene glycol (Glycolax) 17 gram packet Take 17 g by mouth. [DISCONTINUED] psyllium husk 2.6 gram/4.1 gram powder Take 0.4 g by mouth. digoxin (Lanoxin) 125 MCG tablet Take 125 mcg by mouth if needed each day. traZODone (Desyrel) 150 mg tablet Take 75 mg by mouth. [DISCONTINUED] RSH INV 100 melatonin 3 MG tablet Take 1 tablet by mouth. [DISCONTINUED] sodium chloride 0.9 % nebulizer solution Take 3 mL by nebulization if needed for wheezing. No current facility-administered medications on file prior to visit. ROS: Review of Systems Cardiovascular: Positive for chest pain and dyspnea on exertion. Respiratory: Positive for shortness of breath. Neurological: Positive for dizziness and light-headedness. (more content not included)... [facility] 11-05-2023 Note Cardiology Clinic No te Chief Complaint: New patient HPI: Starla Sweeney is a 78 y.o. female who has a past medical history of Diabetes ([facility])., afib, CAD s/p PCI, and HFpEF. Patient [...] has a past medical history of Diabetes ([facility]). Surgical History She has no past surgical [...] tablets by mouth in the morning. artificial tear,dbgmz-jxe-pqw, 0.1-0.3-0.2 % drops 1 drop. atorvastatin (Lipitor) [...] Affect normal, Judgment normal, Mood normal. Assessment/Plan: Starla Sweeney is a 78 y.o. female with Paroxysmal a (more content not included)... [facility] 09-09-2023 History of Present illness Narrative Pt discharged safely with all personal belongings including charging cord. Report called to Kayley at [facility]. All questions answered in full. Images from the original note were not included. [place] [facility] Cover[employer] Progress Note Date: 09/09/2023 Patient name: Starla Sweeney Date of admission: 09/06/2023 4:14 PM Date of : 1945 PCP: Derek Major DO Reason for Admission: Bradycardia [R00.1] Subjective: Clinical Changes / Abnormalities: Pt seen and examined in the room. Patient resting in bed with family at bedside. Pt denies any CP or sob. Labs, vitals and tele reviewed- A-fib 83 Medications: Scheduled Meds: metoprolol tartrate 25 mg Oral BID dikthhfl-fesbmwdxty-kauwhsuah Topical BID carboxymethylcellulose PF 1 drop Both Eyes BID calcium carb-cholecalciferol 1 tablet Oral BID dextromethorphan-quiNIDine 1 capsule Oral Q12H memantine 7.5 mg Oral BID traZODone 75 mg Oral Nightly lamoTRIgine 25 mg Oral Daily furosemide 20 mg Oral Daily sodium chloride flush 5-40 mL IntraVENous 2 times per day rivaroxaban 20 mg Oral Daily spironolactone 50 mg Oral Daily atorvastatin 20 mg Oral Daily DULoxetine 30 mg Oral Daily famotidine 40 mg Oral Daily ferrous sulfate 325 mg Oral Daily with breakfast lamoTRIgine 100 mg Oral Daily insulin lispro 0-4 Units SubCUTAneous TID WC insulin lispro 0-4 Units SubCUTAneous Nightly Continuous Infusions: sodium chloride dextrose CBC: Recent Labs 09/07/23 0646 09/08/23 0555 09/09/23 0648 WBC 10.8 10.9 9.9 HGB 8.8* 8.3* 8.8* PLT 333 334 348 BMP: Recent Labs 09/07/23 0646 09/08/23 0555 09/09/23 0648 NA 142 138 138 K 4.3 3.8 4.2 CL 98 95* 94* CO2 34* 32* 36* BUN 16 13 13 CREATININE 0.6 0.5 0.6 GLUCOSE 146* 173* 178* Hepatic: No results for input(s): AST , ALT , BILITOT , ALKPHOS in the last 72 hours. Invalid input(s): ALB Troponin: Recent Labs 09/06/23 1712 09/06/23 2217 TROPHS 21* 20* BNP: No results for input(s): BNP in the last 72 hours. Lipids: No results for input(s): CHOL , HDL in the last 72 hours. Invalid input(s): LDLCALCU INR: No results for input(s): INR in the last 72 hours. Objective: Vitals: BP 99/66 Pulse (!) 112 Temp 97.9 F (36.6 C) (Oral) Resp 17 Ht 1.676 m (5' 6 ) Wt 84 kg (185 lb 3 oz) SpO2 100% BMI 29.89 kg/m General appearance: alert and cooperative with exam HEENT: Head: Normocephalic, no lesions, without obvious abnormality. Neck: no JVD, trachea midline, no adenopathy Lungs: Clear to auscultation Heart: Irregular rate and rhythm, s1/s2 auscultated, no murmurs Abdomen: soft, non-tender, bowel sounds active Extremities: no edema Neurologic: not done EKG: Looks like in A.fib with reguralarization ,concern for digoxin toxicity ECHO 09/07/23: Left Ventricle: Normal left ventricular systolic function. EF 3D is 56%. Left ventricle size is normal. Normal wall thickness. Normal wall motion. Normal diastolic function. Aortic Valve: Mild sclerosis of the aortic valve cusp. Image quality is adequate. Stress Test: not obtained. Cardiac Angiography: not obtained. Assessment /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 up to chair. Reposition every hour while in chair and limit chair time to 2 hour intervals. [x] Encourage good nutritional intake and fluids as able. Consult interior design consultant if needed. Specialty Bed Required : Yes [] Low Air Loss [x] Pressure Redistribution [] Fluid Immersion [] Bariatric [] Total Pressure Relief [] Other: Discharge Plan: From SNF Patient/Caregiver Teaching: Reviewed with family at bedside will update physician and seek orders for imaging or ointments as he deems appropriate. Follow up to outpatient development chemist as scheduled for concerns of right facial lesion enlargement. Level of patient/caregiver understanding: [] Indicates understanding [] Needs reinforcement [] Unsuccessful [x] Verbal Understanding [] Demonstrated understanding [] No evidence of learning [] Refused teaching [] N/A Contact the Wound value analysis coordinator on-call during working hours Wednesday-Wednesday [phone] via [employer] by searching wound under groups and selecting the on-call clinician. Sending messages via individual names will not reach a clinician. Licensed Funeral Director refer this pt to oncall cardio Dr. Farr, [facility] for HR that has been goes up and down ranges 100-130's afib. Licensed Funeral Director also informed that the reason pt came here due to bradycardia and pt is on xarelto for the afib. Licensed Funeral Director refer back patients HR to Dr. Farr for consistent above 110-130's. Afib. Pt is awake.no chest pain. latest Vs Bp 112/55, Hr 122, rr 18 and replied to monitor. [facility] Admission Medication Reconciliation The patient's list of current home medications has been reviewed. Source(s) of information: dispense report, medication list in media section of chart, spoke with family, and contacted [facility] to have med list faxed. Based on information provided by the above source(s), I have updated the patient's home med list as described below. I changed or updated the following medications on the patient's home medication list: Added All DUST OPERATOR medications were added based on faxed medication list received from [facility], previously none entered. Other Notes The PT is on a few medications that could have a potential interaction with digoxin and could increase the serum levels causing toxicity. I spoke with [facility] and they stated the last digoxin level in June was in range. Upon reviewing the med list faxed from [facility] the following medications were added since June: Trazodone 75mg (1/2 tab of 150mg tablets) once a day started on 09/02/23 Acetaminophen 1000mg every 6 hours as needed started on 08/27/23 Melatonin 10mg at bedtime started on 06/30/23 Please feel free to call me with any questions about this encounter. Thank you. Meenu Enriquez, Mexican Food Maker Hand Images from the original note were not included. [facility] Office: [phone] Yayo Scherer DO, Derek Frias DO, Ilan Askew DO, Tylor Elias DO, Octavia Rodriguez MD, Josselyn Teague MD, Bridgett Doll MD, Jamilah Sibley MD, Vaibhav Castellanos MD, Dayanna Drake MD, Oziel Crisostomo MD, Luis Nguyen DO, Tu Wooten MD, Zohaib Doran MD, Jaguar Scherer DO, Negrita Cloud MD, Severo Adams DO, Jessica Abrams MD, Kadie Rod MD, Britt Rodriguez MD, Florence An MD, Theodore Silva MD, Christine June MD, Zaid Valdez MD, Nataly Elena MD, Wei Lemos MD, Cathryn Orantes MD, Selin Szymanski DO, Mando Mehta DO, Jennie Mir MD, Rahul Hartley MD, Mirta Corbin CNP, Jes Willis CNP, Christiano Ramires CNP, Donita Rubio, CARRIE, Katie Quiroz, RENTAL REPRESENTATIVE, Chelsea Goff, RENTAL REPRESENTATIVE, Shabana Howard, RENTAL REPRESENTATIVE, Yuli Bentley RENTAL REPRESENTATIVE, Verona Harvey PA-C, Brissa Ackerman PA-C, Trish Serna RENTAL REPRESENTATIVE, Caitlin Christensen, RENTAL REPRESENTATIVE, Guille Suarez, RENTAL REPRESENTATIVE, Kayley Valente, RENTAL REPRESENTATIVE, Radha Garcia, RENTAL REPRESENTATIVE, Sofia Miranda, IN FLIGHT REFUELING SYSTEM REPAIRER, Linda Shirley, RENTAL REPRESENTATIVE, Roselia Vasquez, RENTAL REPRESENTATIVE, Katarina Perez, RENTAL REPRESENTATIVE [facility] IN-PATIENT SERVICE [facility] Progress Note 09/07/2023 3:44 PM Name: Starla Sweeney Acct: [id number] Room: IP Day: 1 Admit Date: 09/06/2023 4:14 PM PCP: Derek Major DO Code Status: Full Code Subjective: Doing well no acute events overnight. Patient has no complaints. Medications: Allergies: No Known Allergies Current Meds: Scheduled Meds: furosemide 20 mg IntraVENous BID sodium chloride flush 5-40 mL IntraVENous 2 times per day rivaroxaban 20 mg Oral Daily spironolactone 50 mg Oral Daily atorvastatin 20 mg Oral Daily DULoxetine 30 mg Oral Daily famotidine 40 mg Oral Daily ferrous sulfate 325 mg Oral Daily with breakfast lamoTRIgine 100 mg Oral Daily memantine 20 mg Oral Daily insulin lispro 0-4 Units SubCUTAneous TID WC insulin lispro 0-4 Units SubCUTAneous Nightly azithromycin 500 mg IntraVENous Q24H cefTRIAXone (ROCEPHIN) IV 1,000 mg IntraVENous Q24H Continuous Infusions: sodium chloride dextrose PRN Meds: sodium chloride flush, sodium chloride, potassium chloride OR potassium alternative oral replacement OR potassium chloride, magnesium sulfate, ondansetron OR ondansetron, polyethylene glycol, acetaminophen OR acetaminophen, glucose, dextrose bolus OR dextrose bolus, glucagon (rDNA), dextrose Data: Vitals: BP (!) 127/54 Pulse 91 Temp 97.6 F (36.4 C) (Oral) Resp 14 SpO2 100% Temp (24hrs), Av.9 F (36.6 C), Min:97.5 F (36.4 C), Max:98.2 F (36.8 C) Recent Labs 09/06/23 2013 09/07/23 0712 09/07/23 1109 09/07/23 1513 POCGLU 112* 141* 173* 199* I/O (24Hr): Intake/Output Summary (Last 24 hours) at 09/07/2023 1544 Last data filed at 09/07/2023 1322 Gross per 24 hour Intake -- Output 1750 ml Net -1750 ml Labs: Hematology: Recent Labs 09/06/23 1713 09/07/23 0646 WBC 12.6* 10.8 RBC 2.78* 3.00* HGB 8.3* 8.8* HCT 27.7* 29.8* MCV 99.6 99.3 MCH 29.9 29.3 MCHC 30.0 29.5 RDW 17.7* 17.7* PLT 341 333 MPV 8.9 8.9 Chemistry: Recent Labs 09/06/23 1712 09/06/23 1836 09/06/23 2217 09/07/23 0646 NA 140 -- 139 142 K 5.2 -- 4.4 4.3 CL 96* -- 96* 98 CO2 34* -- 35* 34* GLUCOSE 119* -- 123* 146* BUN 21 -- 18 16 CREATININE 0.6 -- 0.5 0.6 ANIONGAP 10 -- 8* 10 LABGLOM >90 -- >90 >90 CALCIUM 9.8 -- 9.1 10.2 PROBNP -- 2,721* -- -- TROPHS 21* -- 20* -- Recent Labs 09/06/23201209/07/23 0709/07/23 1109 09/07/23 1513 POCGLU 112* 141* 173* 199* ABG:No results found for: POCPH , PHART , PH , POCPCO2 , ALK1RLI , PCO2 , POCPO2 , PO2ART , PO2 , POCHCO3 , FJZ2GWZ , HCO3 , NBEA , PBEA , BEART , BE , THGBART , THB , TBS0NIX , [id number] , [id number] , O2SAT , FIO2 No results found for: SPECIAL No results found for: CULTURE Radiology: XR CHEST PORTABLE Result Date: 09/06/2023 Multifocal opacification, possibly multifocal pneumonia, ARDS or edema. Left-sided volume loss with possible effusion. Physical Examination: General appearance: alert, cooperative and no distress Mental Status: oriented to person, place and time and normal affect Lungs: clear to auscultation bilaterally, normal effort Heart: regular rate and rhythm, no murmur Abdomen: soft, nontender, nondistended, normal bowel sounds, no masses, hepatomegaly, splenomegaly Extremities: no edema, redness, tenderness in the calves Skin: no gross lesions, rashes, induration Assessment: Hospital Problems Last Modified POA * (Principal) Bradycardia 09/06/2023 Yes Atrial fibrillation (HCC) 09/06/2023 Yes GERD (gastroesophageal reflux disease) 09/06/2023 Yes Iron deficiency anemia 09/06/2023 Yes Diabetes mellitus (HCC) 09/06/2023 Yes Digoxin adverse reaction 09/07/2023 Yes Encounter for palliative care 09/07/2023 Yes ACP (advance care planning) 09/07/2023 Yes Polypharmacy 09/07/2023 Yes Mild dementia (HCC) 09/07/2023 Yes Plan: Symptomatic bradycardia Concern for digoxin toxicity s/p Digibind Acute hypoxic respiratory failure likely due to New onset CHF , doubt pneumonia. New onset heart failure Paroxysmal atrial fibrillation Dyslipidemia CAMILA GERD Dyslidpidemia Diabetes mellitus type II With hyperglycemia Dementia without behavioral distrubance. Discussed with pharmacy, concern about drug reaction between digoxin and nuedext In process of doing med rec Digoxin stopped. Continue Xarelto. Follow up on TTE Start IV lasix 20 mg BID Clinically does not appear to have pneumonia, xray findings more likely related to CHF. Discussed case with Medical Decision Making: Medium Luis Nguyen DO 09/07/2023 3:44 PM Medical ICU was consulted to evaluate this patient who is a transfer from [facility] with concern for digoxin overdose. At [facility] she was initially bradycardic in the 30s and 40s, digoxin level of 2.6. Patient was given Digibind there and transferred to [facility]. Upon my evaluation the patient patient is awake, alert, interactive, following commands, oriented. She has a heart rate in the high 60s, blood pressure approximately 105/70. Emergency department is placed patient on [place] for precaution. Discussed case with Dr. Atkinson, critical care attending. Do not believe the patient requires ICU at this time considering her heart rate is improved drastically. Family requesting UA to rule out UTI and I have communicated that with the emergency department. Spoke with Dr. Rosas and recommended she admitted the patient to medicine under stepdown status. If patient's heart rate worsens or condition deteriorates will reevaluate and place in ICU. documented in this encounter [facility] 09-09-2023 Hospital Discharge instructions Luis Nguyen DO - 09/09/2023 12:50 PM EDT -Make an appoint with a new primary care physician within 1 week of discharge -Follow-up with your victim advocate for continued management of atrial fibrillation -Monitor glucose adjust regimen as needed -PT OT as tolerated -Repeat labs in 1 week Chanda Washington RN - 09/09/2023 11:21 AM EDT Images from the original note were not included. Continuity of Care Form Patient Name: Starla Sweeney : 1945 Admit date: 09/06/2023 Discharge date: 09/09/2023 Code Status Order: Full Code Advance Directives: Admitting Physician: No admitting provider for patient encounter. PCP: Derek Major DO Discharging Nurse: Chanda KEANE Discharging Hospital Unit/Room#: Discharging Unit Emergency Contact: Extended Emergency Contact Information Primary Emergency Contact: Christiano Sweeney Relation: Healthcare Decision Maker Secondary Emergency Contact: Starla Lugo Relation: Healthcare Decision Maker Past Surgical History: No past surgical history on file. Immunization History: There is no immunization history on file for this patient. Active Problems: Patient Active Problem List Diagnosis Code Bradycardia R00.1 Atrial fibrillation (HCC) I48.91 GERD (gastroesophageal reflux disease) K21.9 Iron deficiency anemia D50.9 Diabetes mellitus (HCC) E11.9 Digoxin adverse reaction T46.0X5A Encounter for palliative care Z51.5 ACP (advance care planning) Z71.89 Polypharmacy Z79.899 Mild dementia (HCC) F03.A0 Congestive heart failure (HCC) I50.9 Digoxin toxicity, accidental or unintentional, initial encounter T46.0X1A Isolation/Infection: Isolation No Isolation Patient Infection Status None to display Nurse Assessment: Last Vital Signs: BP 119/71 Pulse (!) 112 Temp 98.1 F (36.7 C) (Oral) Resp 17 Ht 1.676 m (5' 6 ) Wt 84 kg (185 lb 3 oz) SpO2 100% BMI 29.89 kg/m Last documented pain score (0-10 scale): Pain Level: 0 Last Weight: Wt Readings from Last 1 Encounters: 09/08/23 84 kg (185 lb 3 oz) Mental Status: oriented and alert IV Access: - None Nursing Mobility/ADLs: Walking Dependent Transfer Dependent Bathing Dependent Dressing Dependent Toileting Dependent Feeding Assisted Editor Dictionary Assisted Med Delivery whole and prefers mixed with applesauce Wound Care Documentation and Therapy: Wound 09/08/23 Toe (Comment which one) Left #1 (Active) Wound Image 09/08/23 0933 Wound Etiology Traumatic 09/09/23 08 Dressing Status Clean;Dry;Intact 09/09/23 08 Wound Cleansed Not Cleansed 09/09/23 08 Wound Length (cm) 2.2 cm 09/08/23 09 Wound Width (cm) 1.4 cm 09/08/23 09 Wound Depth (cm) 0.2 cm 09/08/23932 Wound Surface Area (cm^2) 3.08 cm^2 09/08/23 09 Wound Volume (cm^3) 0.616 cm^3 09/08/23932 Wound Assessment Eschar dry 09/09/23 08 Drainage Amount None (dry) 09/09/23 08 Odor None 09/09/23 08 Ruby-wound Assessment Blanchable erythema;Warm 09/09/23 08 Number of days: 1 Wound 09/08/23 Toe (Comment which one) Left #2 (Active) Wound Image 09/08/23 0933 Wound Etiology Traumatic 09/09/23 08 Wound Length (cm) 0.9 cm 09/08/2333 Wound Width (cm) 0.3 cm 09/08/23 0933 Wound Depth (cm) 0.1 cm 06/19/24 0933 Wound Surface Area (cm^2) 0.27 cm^2 09/08/23 0933 Wound Volume (cm^3) 0.027 cm^3 09/08/23 09 Wound Assessment Dry;Devitalized tissue;Superficial 09/09/23 08 Drainage Amount None (dry) 09/09/23 0800 Odor None 09/09/23 0800 Ruby-wound Assessment Intact 09/09/23 08 Number of days: 1 Wound 09/08/23 Toe (Comment which one) Left #4 (Active) Wound Image 09/08/23 0933 Wound Etiology Traumatic 09/09/23 08 Dressing/Treatment Open to air 09/09/23799 Wound Length (cm) 1.1 cm 09/08/23932 Wound Width (cm) 2 cm 09/08/23932 Wound Depth (cm) 0.1 cm 09/08/23932 Wound Surface Area (cm^2) 2.2 cm^2 09/08/23932 Wound Volume (cm^3) 0.22 cm^3 09/08/23932 Wound Assessment Dry;Devitalized tissue;Superficial 09/09/23 08 Drainage Amount None (dry) 09/09/23 0800 Odor None 09/09/23 08 Ruby-wound Assessment Intact 09/09/23 08 Number of days: 1 Wound 09/08/23 Right face near nose (Active) Wound Etiology Other 09/09/23 08 Wound Cleansed Not Cleansed 09/09/23 08 Dressing/Treatment Open to air 09/09/23 08 Wound Assessment Eschar dry 09/09/23 08 Drainage Amount None (dry) 09/09/23 0800 Odor None 09/09/23 08 Ruby-wound Assessment Intact 09/09/23 08 Number of days: 1 Elimination: Continence: Bowel: No Bladder: No Urinary Catheter: None Colostomy/Ileostomy/Ileal Conduit: No Date of Last BM: Intake/Output Summary (Last 24 hours) at 09/09/2023 112 Last data filed at 09/08/20231999 Gross per 24 hour Intake 510 ml Output 850 ml Net -340 ml I/O last 3 completed shifts: In: 510 [P.O.:510] Out: 1800 [Urine:1800] Safety Concerns: At Risk for Falls and Left side weakness Impairments/Disabilities: Speech, Hearing, and Delayed speech, Left side deficit Nutrition Therapy: Current Nutrition Therapy: - Oral Diet: Carb Control 4 carbs/meal (1800kcals/day) Routes of Feeding: Oral Liquids: [place] Thick Liquids Daily Fluid Restriction: no Last Modified Barium Swallow with Video (Video Swallowing Test): not done Treatments at the Time of Hospital Discharge: Respiratory Treatments:none Oxygen Therapy: is on oxygen at 2 L/min per nasal cannula. Ventilator: - No ventilator support Rehab Therapies: Physical Therapy and Occupational Therapy Weight Bearing Status/Restrictions: No weight bearing restrictions Other Medical Equipment (for information only, NOT a DME order): wheelchair and hospital bed Other Treatments: wound to toe apply bbacitracin Patient's personal belongings (please select all that are sent with patient): Glasses, Pt discharged with all personal belongings RN SIGNATURE: CASE MANAGEMENT/SOCIAL WORK SECTION Inpatient Status Date: 09/06/23 Readmission Risk Assessment Score: Readmission Risk Risk of Unplanned Readmission: 20 Discharging to Facility/ Agency Name: Address:[facility] Phone: Fax: Dialysis Facility (if applicable) Name: Address: Dialysis Schedule: Phone: Fax: Print Binding Worker/Metal Cleaner signature: PHYSICIAN SECTION Prognosis: Fair Condition at Discharge: Stable Rehab Potential (if transferring to Rehab): Fair Recommended Labs or Other Treatments After Discharge: -Make an appoint with a new primary care physician within 1 week of discharge -Follow-up with your victim advocate for continued management of atrial fibrillation -Monitor glucose adjust regimen as needed -PT OT as tolerated -Repeat labs in 1 week -Recommend consulting wound care for left lower extremity wound Physician Certification: I certify the above information and transfer of Starla Sweeney is necessary for the continuing treatment of the diagnosis listed and that she requires Residential Facility for greater 30 days. Update Admission H&P: No change in H&P PHYSICIAN SIGNATURE: documented in this encounter [facility] 09-09-2023 Hospital course Narrative Images from the original note were not included. [facility] Office: [phone] Yayo Scherer DO, Derek Frias DO, Ilan Askew DO, Tylor Elias DO, Octavia Rodriguez MD, Josselyn Teague MD, Bridgett Doll MD, Jamilah Sibley MD, Vaibhav Castellanos MD, Dayanna Drake MD, Oziel Crisostomo MD, Luis Nguyen DO, Tu Wooten MD, Zohaib Doran MD, Jaguar Scherer DO, Negrita Cloud MD, Severo Adams DO, Jessica Abrams MD, Kadie Rod MD, Britt Rodriguez MD, Florence An MD, Theodore Silva MD, Christine June MD, Zaid Valdez MD, Nataly Elena MD, Wei Lemos MD, Cathryn Orantes MD, Selin Szymanski DO, Mando Mehta DO, Jennie Mir MD, Rahul Hartley MD, Mirta Corbin CNP, Jes Willis CNP, Christiano Ramires CNP, Donita Rubio, CARRIE, Katie Quiroz RENTAL REPRESENTATIVE, Chelsea Goff RENTAL REPRESENTATIVE, Shabana Howard CNP, Yuli Bentley CNP, NINA NairC, NINA RedmondC, Trish Serna CNP, Caitlin Christensen CNP, Guille Suarez RENTAL REPRESENTATIVE, Kayley Valente RENTAL REPRESENTATIVE, Radha Garcia, RENTAL REPRESENTATIVE, Sofia Miranda, IN FLIGHT REFUELING SYSTEM REPAIRER, Linda Shirley, HARDY, Roselia Vasquez CNP, Katarina Perez RENTAL REPRESENTATIVE [facility] IN-PATIENT SERVICE [facility] Discharge Summary Patient ID: Starla Sweeney : 1945 ACCOUNT: [id number] Patient's PCP: Derek Major DO Admit Date: 09/06/2023 Discharge Date: 09/09/2023 Length of Stay: 3 Code Status: Full Code Admitting Physician: No admitting provider for patient encounter. Discharge Physician: Luis Nguyen DO Active Discharge Diagnoses: Hospital Problem Lists: Principal Problem: Digoxin adverse reaction Active Problems: Digoxin toxicity, accidental or unintentional, initial encounter Bradycardia Atrial fibrillation (HCC) GERD (gastroesophageal reflux disease) Iron deficiency anemia Diabetes mellitus (HCC) Encounter for palliative care ACP (advance care planning) Polypharmacy Mild dementia (HCC) Congestive heart failure (HCC) Resolved Problems: * No resolved hospital problems. * Admission Condition: serious Discharged Condition: stable Hospital Stay: Hospital Course: Starla Sweeney is a 77-year-old female who presented to our hospital for evaluation of shortness of breath and bradycardia. There was concern for digoxin toxicity so patient was treated with Digibind. Her digoxin was discontinued and she was switched to oral beta-shanti. She was given IV diuretics with improvement of her symptoms. Echocardiogram showed an ejection fraction of 56%. There was concern for polypharmacy contributing to her altered mentation so her regimen was adjusted. Currently patient is medically stable for discharge. Needs to follow-up with her primary care physician for continued titration of her medications. Significant therapeutic interventions: Significant Diagnostic Studies: Labs / Micro: CBC: Lab Results Component Value Date/Time WBC 9.9 09/09/2023 06:48 AM RBC 3.03 09/09/2023 06:48 AM HGB 8.8 09/09/2023 06:48 AM HCT 30.2 09/09/2023 06:48 AM MCV 99.7 09/09/2023 06:48 AM MCH 29.0 09/09/2023 06:48 AM MCHC 29.1 09/09/2023 06:48 AM RDW 17.3 09/09/2023 06:48 AM PLT 348 09/09/2023 06:48 AM BMP: Lab Results Component Value Date/Time GLUCOSE 178 09/09/2023 06:48 AM NA 138 09/09/2023 06:48 AM K 4.2 09/09/2023 06:48 AM CL 94 09/09/2023 06:48 AM CO2 36 09/09/2023 06:48 AM ANIONGAP 8 09/09/2023 06:48 AM BUN 13 09/09/2023 06:48 AM CREATININE 0.6 09/09/2023 06:48 AM CALCIUM 10.3 09/09/2023 06:48 AM LABGLOM >90 09/09/2023 06:48 AM Radiology: XR TOE LEFT (MIN 2 VIEWS) Result Date: 09/08/2023 Mildly impacted fracture of the distal 1st proximal phalanx. XR CHEST PORTABLE Result Date: 09/06/2023 Multifocal opacification, possibly multifocal pneumonia, ARDS or edema. Left-sided volume loss with possible effusion. Consultations: Consults: Final Specialist Recommendations/Findings: IP CONSULT TO CRITICAL CARE IP CONSULT TO HOSPITALIST IP CONSULT TO CARDIOLOGY IP CONSULT TO PALLIATIVE CARE The patient was seen and examined on day of discharge and this discharge summary is in conjunction with any daily progress note from day of discharge. Discharge plan: Disposition: To a [facility] Physician Follow Up: Derek Major DO [address] [facility] [phone] Schedule an appointment as soon as possible for a visit in 1 week(s) Requiring Further Evaluation/Follow Up POST HOSPITALIZATION/Incidental Findings: -Make an appoint with a new primary care physician within 1 week of discharge -Follow-up with your victim advocate for continued management of atrial fibrillation -Monitor glucose adjust regimen as needed -PT OT as tolerated -Repeat labs in 1 week -Wound care to toe Diet: cardiac diet Activity: As tolerated Instructions to Patient: Discharge Medications: Medication List START taking these medications furosemide 20 MG tablet Commonly known as: LASIX Take 1 tablet by mouth daily Start taking on: September 10, 2023 SITagliptin 25 MG tablet Commonly known as: Januvia Take 1 tablet by mouth daily CHANGE how you take these medications metFORMIN 1000 MG tablet Commonly known as: GLUCOPHAGE What changed: Another medication with the same name was removed. Continue taking this medication, and follow the directions you see here. CONTINUE taking these medications acetaminophen 500 MG tablet Commonly known as: TYLENOL atorvastatin 20 MG tablet Commonly known as: LIPITOR calcium-vitamin D 500-5 MG-MCG Tabs per tablet Commonly known as: OSCAL-500 clobetasol 0.05 % cream Commonly known as: TEMOVATE dextromethorphan-quiNIDine 20-10 MG Caps per capsule Commonly known as: NUEDEXTA DULoxetine 30 MG extended release capsule Commonly known as: CYMBALTA famotidine 40 MG tablet Commonly known as: PEPCID ferrous sulfate 325 (65 Fe) MG EC tablet Commonly known as: FE TABS 325 GenTeal Tears 0.1-0.2-0.3 % Soln * lamoTRIgine 100 MG tablet Commonly known as: LAMICTAL * lamoTRIgine 25 MG tablet Commonly known as: LAMICTAL Magnesium 400 MG Tabs Melatonin 10 MG Tabs memantine ER 21 MG Cp24 extended release capsule Commonly known as: NAMENDA XR metoprolol tartrate 50 MG tablet Commonly known as: LOPRESSOR nitroGLYCERIN 0.4 MG SL tablet Commonly known as: NITROSTAT nystatin [id number] UNIT/GM powder Commonly known as: MYCOSTATIN polyethylene glycol 17 g packet Commonly known as: GLYCOLAX PSYLLIUM HUSK PO rivaroxaban 20 MG Tabs tablet Commonly known as: XARELTO spironolactone 50 MG tablet Commonly known as: ALDACTONE traZODone 150 MG tablet Commonly known as: DESYREL * This list has 2 medication(s) that are the same as other medications prescribed for you. Read the directions carefully, and ask your doctor or other care provider to review them with you. STOP taking these medications acarbose 100 MG tablet Commonly known as: PRECOSE acidophilus digoxin 125 MCG tablet Commonly known as: LANOXIN dilTIAZem 180 MG extended release capsule Commonly known as: DILACOR XR ergocalciferol 1.25 MG (05646 UT) capsule Commonly known as: ERGOCALCIFEROL estrogens conjugated 0.625 MG/GM Crea vaginal cream Commonly known as: PREMARIN ondansetron 4 MG disintegrating tablet Commonly known as: ZOFRAN-ODT pioglitazone 15 MG tablet Commonly known as: ACTOS Simethicone 125 MG Caps Where to Get Your Medications Information about where to get these medications is not yet available Ask your nurse or doctor about these medications furosemide 20 MG tablet SITagliptin 25 MG tablet No discharge procedures on file. Time Spent on discharge is 37 mins in patient examination, evaluation, counseling as well as medication reconciliation, prescriptions for required medications, discharge plan and follow up. Electronically signed by Luis Nguyen DO 09/09/2023 12:54 PM Thank you Derek Serrano DO for the opportunity to be involved in this patient's care. documented in this encounter [facility] Evaluation note Diagnosis Foot ulcer, left, with fat layer exposed (CMS/HCC)- Primary Diabetes mellitus due to underlying condition with diabetic polyneuropathy, 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 (CMS/HCC) Pain due to onychomycosis of toenails of both feet documented in this encounter [facility]* Diagnosis Diabetes mellitus due to underlying condition with diabetic polyneuropathy, unspecified whether assisted insulin use (CMS/HCC)- Primary Foot ulcer, left, with fat layer exposed (CMS/HCC) documented in this encounter [facility] note* Diagnosis Diabetes mellitus due to underlying condition with diabetic polyneuropathy, 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 (CMS/HCC)- Primary Foot ulcer, left, with fat layer exposed (CMS/HCC) documented in this encounter [facility] HealthcareEvaluation noteNo assessment information availableSalem [facility] Work Phone: Evaluation note* Diagnosis Digoxin adverse reaction- Primary Cardiotonic glycosides and drugs of similar action causing adverse effect in therapeutic use Congestive heart failure, unspecified HF chronicity, unspecified heart failure type (HCC) Bradycardia Other specified cardiac dysrhythmias Digoxin toxicity, accidental or unintentional, initial encounter Bradycardia Other specified cardiac dysrhythmias Atrial fibrillation (HCC) Atrial fibrillation GERD (gastroesophageal reflux disease) Esophageal reflux Iron deficiency anemia Iron deficiency anemia, unspecified Diabetes mellitus (HCC) Type II or unspecified type diabetes mellitus without mention of complication, not stated as uncontrolled Encounter for palliative care ACP (advance care planning) Other specified counseling Polypharmacy Issue of repeat prescriptions Mild dementia (HCC) Dementia, unspecified, without behavioral disturbance Congestive heart failure (HCC) Congestive heart failure, unspecified Digoxin toxicity, accidental or unintentional, initial encounter [facility] Diagnosis 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, 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 (CMS/HCC) Pain due to onychomycosis of toenails of both feet documented in this encounter [facility] note* Diagnosis 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, unspecified whether assisted insulin use (CMS/HCC) Pain due to onychomycosis of toenails of both feet documented in this encounter [facility] Summary Purpose Family History No Family History Records FoundNo Family History Records FoundNo Family History Records FoundNo Family History Records FoundNo Family History Records FoundNo Family History Records Found Advance Directives No Advanced Directives Records Found Advance Directive Response Recorded Date/ Time Advance Directives No March 31, 2024 12:27pm Documents on File Type Date Recorded 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 Expl 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 ACP-Advance Directive 09/08/2023 2:14 PM P OA Latest Code Status on File Code Status Date Activated Date Inactivated Comments Full Code 09/06/2023 7:46 PM Healthcare Agents on File Name Relationship Healthcare Agent Relationship Communication Christiano Sweeney Healthcare Decision Maker Primary Decis ion Maker Additional Source Comments INFORMATION SOURCE (unrecogn ized section and content) DATE CREATED AUTHOR 02/28/2022 [facility] DATE CREATED AUTHOR AUTHOR'S ORGANIZ ATION 09/15/2023 [facility] DATE CREATED AUTHOR AUTHOR'S ORGANIZ ATION 04/05/2024 [facility] DATE CREATED AUTHOR AUTHOR'S ORGANIZ ATION 04/08/2024 [facility] DATE CREATED AUTHOR AUTHOR'S ORGANIZ ATION 05/15/2024 [facility] DATE CREATED AUTHOR AUTHOR'S ORGANIZ ATION 07/14/2024 [facility] EPIC Reason for Visit (unrecogniz ed section and content) Reason Comments Foot Ulcer Left Gt toe ulcer Reason Comments DM Foot Care Dm Nails Reason Comments Foot Ulcer 3wk chk Reason Comments Bradycardia Reason Comments Foot Ulcer Bl ulcers DM Foot Care Dm nail care Reason Comments DM Foot Care Dm nail care Care Teams (unrecognized sec tion and content) Electric Needle Specialist Relationship Specialty Start Date End Date Christiano Peters MD [employer] [address] [place], [place] [phone] PCP - General Family Medicine 02/24/24 Electric Needle Specialist Relationship Specialty Start Date End Date Christiano Peters MD [employer] [address] [place] [address] PCP - General Family Medicine 02/24/24 Team Status: Inactive Member Role Status Dates Mariah Prado PA-C Attending Provider Active Start: March 30, 2024 End: March 30, 2024 Electric Needle Specialist Relationship Specialty Start Date End Date Derek Major DO [address] [place] [id number] PCP - General Internal Medicine 09/06/23 Electric Needle Specialist Relationship Specialty Start Date End Date Christiano Peters MD [address] [place] [address] PCP - General Family Medicine 02/24/24 Electric Needle Specialist Relationship Specialty Start Date End Date Christiano Peters MD [address] [place] [address] PCP - General Family Medicine 02/24/24 Electric Needle Specialist Relationship Specialty Start Date End Date Christiano Peters MD [address] [place] [address] PCP - General Family Medicine 02/24/24 Goals (unrecognized section and content) Goals may be documented in a n alternate section Ordered Prescriptions (unrec ognized section and content) Prescription Sig Dispensed Refills Start Date End Da te SITagliptin (JANUVIA) 25 MG tablet Take 1 tablet by mouth daily 30 tablet 0 09/09/2023 furosemide (LASIX) 20 MG tablet Take 1 tablet by mouth daily 60 tablet 3 09/10/2023 Scheduled Active and Recently Administ ered Medications (unrecognized section and content) Medication Order 09/07/2023 09/08/2023 09/09/2023 atorvastatin (LIPITOR) tablet 20 mg 20 mg, Oral, DAILY, First dose on Wed09/07/23 at 0900, Until Discontinued 1008 (Given - Provider: Nicole Powell RN) 0837 (Given - Provider: Lisa Barajas, LAKHWINDER) 0823 (Given - Provider: Chanda Washington RN) azithromycin (ZITHROMAX) 500 mg in sodium chloride 0.9 % 250 mL IVPB ([id number]) (CANCELED) 500 mg, IntraVENous, EVERY 24 HOURS, 7 doses, First dose on Wed09/06/23 at 2245, Last dose on Wed09/12/23 at 2245, Antimicrobial Indications: Pneumonia (CAP), CAP duration of therapy: 3 days 0008 (Stopped - Provider: Angelika Vargas RN)2210 (New Bag - Provider: Angelika Vargas RN)2344 (Stopped - Provider: Angelika Vargas RN) calcium carb-cholecalciferol 600-10 MG-MCG per tab 1 tablet 1 tablet, Oral, 2 TIMES DAILY, First dose on Wed09/08/23 at 2100, Until Discontinued 210 (Given - Provider: Nikki Dewey RN) 08 (Given - Provider: Chanda Washington RN)2100 (Due) carboxymethylcellulose PF (THERATEARS/REFRESH) 1 % ophthalmic gel 1 drop 1 drop, Both Eyes, 2 TIMES DAILY, First dose on Wed09/08/23 at 2100, Until Discontinued 2106 (Given - Provider: Nikki Dewey RN) 1252 (Given - Provider: Chanda Washington RN)2100 (Due) cefTRIAXone (ROCEPHIN) 1000 mg in sterile water 10 mL IV syringe (CANCELED) 1,000 mg, IntraVENous, EVERY 24 HOURS, First dose on Wed09/06/23 at 2245, Until Discontinued, Antimicrobial Indications: Pneumonia (CAP), CAP duration of therapy: 5 days, Administer as slow IV Push over 5 mins 0026 (Given - Provider: Angelika Vargas RN)2159 (Given - Provider: Angelika Vargas RN) dextromethorphan-quiNIDi ne (NUEDEXTA) 20-10 MG per capsule 1 capsule (Patient Supplied) 1 capsule, Oral, EVERY 12 HOURS, First dose on Wed09/08/23 at 1600, Until Discontinued 1644 (Not Given - Provider: Lisa Barajas RN - Reason: Medication not available) 0505 (Not Given - Provider: Nikki Dewey RN - Reason: Medication not available)1624 (Not Given - Provider: Chanda Washington RN - Reason: Medication not available) DULoxetine (CYMBALTA) extended release capsule 30 mg 30 mg, Oral, DAILY, First dose on Wed09/07/23 at 0900, Until Discontinued, Do not crush or break. May add contents of capsule to apple juice or apple sauce, but not chocolate. 1008 (Given - Provider: Nicole Powell RN) 0837 (Given - Provider: Lisa Barajas RN) 0824 (Given - Provider: Chanda Washington RN) famotidine (PEPCID) tablet 40 mg 40 mg, Oral, DAILY, First dose on Wed09/07/23 at 0900, Until Discontinued 1008 (Given - Provider: Nicole Powell RN) 0829 (Given - Provider: Lisa Barajas RN) 0824 (Given - Provider: Chanda Washington, RN) ferrous sulfate (FE TABS 325) EC tablet 325 mg 325 mg, Oral, DAILY WITH BREAKFAST, First dose on Wed09/07/23 at 0800, Until Discontinued 1008 (Given - Provider: Nicole Powell RN) 0835 (Given - Provider: Lisa Barajas RN) 0838 (Given - Provider: Chanda Washington RN) furosemide (LASIX) injection 20 mg (CANCELED) 20 mg, IntraVENous, 2 TIMES DAILY, First dose on Wed09/07/23 at 0730, Until Discontinued 1008 (Given - Provider: Nicole Powell RN)1833 (Given - Provider: Nicole Powell RN) 0835 (Given - Provider: Lisa Barajas RN) furosemide (LASIX) tablet 20 mg 20 mg, Oral, DAILY, First dose on Wed09/09/23 at 0900, Until Discontinued 0823 (Given - Provider: Chanda Washington, LAKHWINDER) insulin lispro (HUMALOG,ADMELOG) injection vial 0-4 Units 0-4 Units, SubCUTAneous, 3 TIMES DAILY WITH MEALS, First dose on Wed09/06/23 at 2000, Until Discontinued, Corrective Low Dose Algorithm Glucose: Dose: 70-199 No Insulin 200-249 1 Unit 250-299 2 Units 300-349 3 Units Over 349 4 Units and notify physician 0844 (Not Given - Provider: Nicole Powell RN - Reason: Order parameters not met)1208 (Not Given - Provider: Nicole Powell RN - Reason: Order parameters not met)1739 (Not Given - Provider: Nicole Powell RN - Reason: Order parameters not met) 0737 (Not Given - Provider: Lisa Barajas RN - Reason: Order parameters not met)1131 (Not Given - Provider: Lisa Barajas RN - Reason: Order parameters not met)1644 (Not Given - Provider: Lisa Barajas RN - Reason: Patient/family refused) 0814 (Not Given - Provider: Chanda Washington RN - Reason: Order parameters not met)1252 (Given - Provider: Chanda Washington RN)1641 (Not Given - Provider: Chanda Washington RN - Reason: Order parameters not met) insulin lispro (HUMALOG,ADMELOG) injection vial 0-4 Units 0-4 Units, SubCUTAneous, NIGHTLY, First dose on Wed09/06/23 at 2100, Until Discontinued, If continuous tube feedings/TPN/NPO, give correction dose based on result, no reduction in dose. If eating or bolus tube feeding: Corrective Bedtime Algorithm Glucose: Dose: 70-299 No Insulin 300-349 4 Units Over 349 4 Units and notify physician 1946 (Not Given - Provider: Angelika Vargas RN - Reason: Order parameters not met) 205 (Not Given - Provider: Nikki Dewey RN - Reason: Order parameters not met - Comment: BS 284) 2100 (Due) lamoTRIgine (LAMICTAL) tablet 100 mg 100 mg, Oral, DAILY, First dose on Wed09/07/23 at 0900, Until Discontinued 1008 (Given - Provider: Nicole Powell RN) 0838 (Given - Provider: Lisa Barajas RN) 0824 (Given - Provider: hCanda Washington RN) lamoTRIgine (LAMICTAL) tablet 25 mg 25 mg, Oral, DAILY, First dose on Wed09/08/23 at 1600, Until Discontinued 1645 (Not Given - Provider: Lisa Barajas RN - Reason: Medication not available) 0823 (Given - Provider: Chanda Washington RN) memantine (NAMENDA) tablet 20 mg (CANCELED) 20 mg, Oral, DAILY, First dose on Wed09/07/23 at 0900, Until Discontinued 1007 (Given - Provider: Nicole Powell RN) 0837 (Given - Provider: Lisa Barajas RN) memantine (NAMENDA) tablet 7.5 mg 7.5 mg, Oral, 2 TIMES DAILY, First dose on Wed09/08/23 at 2100, Until Discontinued, Substituted for Memantine ER (NAMENDA XR). 210 (Given - Provider: Nikki Dewey RN) 823 (Given - Provider: Chanda Washington RN)2099 (Due) metoprolol tartrate (LOPRESSOR) tablet 12.5 mg (CANCELED) 12.5 mg, Oral, 2 TIMES DAILY, First dose on Wed09/08/23 at 1030, Until Discontinued, Hold for SBP <100 and/or HR <60 1020 (Given - Provider: Lisa Barajas RN)2106 (Given - Provider: Nikki Dewey RN) 823 (Given - Provider: Chanda Washington RN) metoprolol tartrate (LOPRESSOR) tablet 25 mg 25 mg, Oral, 2 TIMES DAILY, First dose (after last modification) on Wed09/09/23 at 2100, Until Discontinued, Hold for SBP <100 and/or HR <60 2100 (Due) riqvneqk-uplplqmjng-ftzs myxin (NEOSPORIN) ointment Topical, 2 TIMES DAILY, First dose on Wed09/08/23 at 1230, Apply to left great toe. 1355 (Given - Provider: Lisa Barajas RN - Comment: lt. big toe)2107 (Given - Provider: Nikki Dewey RN - Comment: left big toe) 08 (Given - Provider: Chanda Washington RN)2100 (Due) rivaroxaban (XARELTO) tablet 20 mg 20 mg, Oral, DAILY, First dose on Wed09/07/23 at 1800, Until Discontinued, Indication of Use: A Fib/A Flutter, Administer doses GREATER THAN or EQUAL to 15 mg with food; doses of 2.5 mg and 10 mg may be administered without regard to meals. 1833 (Given - Provider: Nicole Powell RN) 1722 (Given - Provider: Lisa Barajas, LAKHWINDER) 1800 (Due) sodium chloride flush 0.9 % injection 5-40 mL 5-40 mL, IntraVENous, EVERY 12 HOURS SCHEDULED (2 times per day), First dose on Wed09/06/23 at 2100, Until Discontinued, For Line Patency: Peripheral IV = 5 mL; Midline or Central Line = 10 mL/lumen. If following IV push medication, administer flush at same rate as the IV push. Flush volume is determined by type of infusion therapy being given. For non-viscous solutions use: Peripheral IV = 5 mL Midline or Central Line = 10 mL/lumen For viscous solutions (i.e. blood components, parenteral nutrition, contrast media, or after obtaining blood sample) use: Peripheral IV = 10 mL Midline or Central Line = 20 mL/lumen 1010 (Given - Provider: Nicole Powell RN)2158 (Given - Provider: Angelika Vargas RN) 0837 (Given - Provider: Lisa Barajas RN)210 (Given - Provider: Nikki Dewey, LAKHWINDER) 0824 (Given - Provider: Chanda Washington RN)2100 (Due) spironolactone (ALDACTONE) tablet 50 mg 50 mg, Oral, DAILY, First dose on Wed09/07/23 at 0900, Until Discontinued, Hold if SBP < 100 1008 (Given - Provider: Nicole Powell RN) 0835 (Given - Provider: Lisa Barajas, LAKHWINDER) 0823 (Given - Provider: Chanda Washington, LAKHWINDER) traZODone (DESYREL) tablet 75 mg 75 mg, Oral, NIGHTLY, First dose on Wed09/08/23 at 2100, Until Discontinued 2105 (Given - Provider: Nikki Dewey, LAKHWINDER) 2100 (Due) PRN Medication Order 09/07/2023 09/08/2023 09/09/2023 0.9 % sodium chloride infusion IntraVENous, at 5-250 mL/hr, PRN, if patient receiving piggyback infusions and maintenance fluids are not ordered OR KVO fluids to protect IV site / prevent frequent line interruptions/ long duration, Starting on Wed09/06/23 at 1946, For piggyback infusion, administer at same rate as piggyback for a total of 25 mL. Enter 25 mL into dose field and piggyback rate into rate field of order. If piggyback is infusing at a rate less than 100 mL/hr, enter 25 mL into dose field and 100 mL/hr into rate field of order. For KVO fluids, enter rate of 20 mL/hr or less into rate field of order. acetaminophen (TYLENOL) suppository 650 mg(Linked Group 1) 650 mg, Rectal, EVERY 6 HOURS PRN, Starting on Wed09/06/23 at 1946, Until Discontinued, Pain Mild (1-3), Fever, For temp greater than 100.4 F (38 C), Administer if oral route cannot be used. 1655 (See Alternative - Provider: Nicole Powell RN) 0037 (See Alternative - Provider: Angelika Vargas, LAKHWINDER)0610 (See Alternative - Provider: Angelika Vargas, LAKHWINDER) acetaminophen (TYLENOL) tablet 650 mg(Linked Group 1) 650 mg, Oral, EVERY 6 HOURS PRN, Starting on Wed09/06/23 at 1946, Until Discontinued, Pain Mild (1-3), Fever, For temp greater than 100.4 F (38 C), Maximum dose of acetaminophen is 4000 mg from all sources in 24 hours. 165 (Given - Provider: Nicole Powell RN) 0037 (Given - Provider: Angelika Vargas, LAKHWINDER)0610 (Given - Provider: Angelika Vargas, LAKHWINDER) bisacodyl (DULCOLAX) suppository 10 mg 10 mg, Rectal, DAILY PRN, Starting on Wed09/08/23 at 1711, Until Discontinued, Constipation 181 (Given - Provider: Lisa Barajas RN) dextrose 10 % infusion IntraVENous, at 100 mL/hr, CONTINUOUS PRN, if blood glucose remains LESS THAN 70 mg/dL after 2 dextrose 10% intravenous boluses or administration of glucagon, Starting on Wed09/06/23 at 1953, If blood glucose fails to stabilize after 2 dextrose 10% intravenous boluses or glucagon administration, start dextrose 10% infusion at 100 mL/hour and repeat blood glucose at 30 and 60 minutes. If blood glucose is GREATER THAN 70 mg/dL after 60 minutes, discontinue dextrose 10% infusion. dextrose bolus 10% 125 mL(Linked Group 2) 125 mL, IntraVENous, at 937.5 mL/hr, Administer over 8 Minutes, PRN, Other, Blood glucose 40 - 69 mg/dL and patient NOT ALERT or NPO, Starting on Wed09/06/23 at 1952, Repeat blood glucose in 15 minutes. If blood glucose remains LESS THAN 70 mg/dL, repeat treatment and recheck blood glucose in 15 minutes x 2. If using glycemic management system, dose as instructed per system. If blood glucose remains LESS THAN 70 mg/dL after 2 intravenous boluses start dextrose 10% at 100 mL/hour and notify provider. dextrose bolus 10% 250 mL(Linked Group 2) 250 mL, IntraVENous, at 937.5 mL/hr, Administer over 16 Minutes, PRN, Other, Blood glucose LESS THAN 40 mg/dL and patient NOT ALERT or NPO, Starting on Wed09/06/23 at 1952, Repeat blood glucose in 15 minutes. If blood glucose remains LESS THAN 70 mg/dL, repeat treatment and recheck blood glucose in 15 minutes x 2. If using glycemic management system, dose as instructed per system. If blood glucose remains LESS THAN 70 mg/dL after 2 intravenous boluses start dextrose 10% at 100 mL/hour and notify provider. glucagon injection 1 mg 1 mg, SubCUTAneous, PRN, Starting on Wed09/06/23 at 1953, Until Discontinued, Low blood sugar, Blood glucose LESS THAN 70 mg/dL and patient NOT ALERT or NPO and does not have IV access., After administration, attempt intravenous access and start dextrose 10% at 100 mL/hr. Repeat blood glucose in 15 minutes x 2 and notify provider. glucose chewable tablet 16 g 16 g (4 tablet), Oral, PRN, Starting on Wed09/06/23 at 1953, Until Discontinued, Low blood sugar, If blood glucose is LESS THAN 70 mg/dL and patient is alert and tolerating oral. Give 4 tablets (16g) Repeat blood glucose in 15 minutes. If blood glucose is LESS THAN 70 mg/dL, repeat treatment and recheck blood glucose in 15 minutes x 2. If blood glucose remains LESS THAN 70 mg/dL, notify provider. magnesium sulfate 2000 mg in 50 mL IVPB premix 2,000 mg, IntraVENous, at 25 mL/hr, Administer over 2 Hours, PRN, Other, Magnesium Replacement, Starting on Wed09/06/23 at 1946, Mag Lab Replacement Action 1.4-1.6 mg/dL 2,000 mg Total Dose Given as 1,000 mg IVPB x 2 doses or 2,000 mg IVPB x 1 dose 1.0-1.3 mg/dL 4,000 mg Total Dose Given as 1,000 mg IVPB x 4 doses or 2,000 mg IVPB x 2 doses Less than 1.0 mg/dL CALL PHYSICIAN and give 4,000 mg Total Dose Given as 1,000 mg IVPB x 4 doses or 2,000 mg IVPB x 2 doses Infuse at 1,000 mg/hr Repeat Mag level 1 hour after final administration Protocol not for use in Patients with CrCl less than 30ml/min ondansetron (ZOFRAN) injection 4 mg(Linked Group 3) 4 mg, IntraVENous, EVERY 6 HOURS PRN, Starting on Wed09/06/23 at 1946, Until Discontinued, Nausea, Vomiting, Administer if oral route cannot be used. ondansetron (ZOFRAN-ODT) disintegrating tablet 4 mg(Linked Group 3) 4 mg, Oral, EVERY 8 HOURS PRN, Starting on Wed09/06/23 at 1946, Until Discontinued, Nausea, Vomiting polyethylene glycol (GLYCOLAX) packet 17 g 17 g, Oral, DAILY PRN, Starting on Wed09/06/23 at 1946, Until Discontinued, Constipation, First line therapy for constipation 1540 (Given - Provider: Lisa Barajas, LAKHWINDER) potassium bicarb-citric acid (EFFER-K) effervescent tablet 40 mEq(Linked Group 4) 40 mEq, Oral, PRN, Starting on Wed09/06/23 at 1946, Until Discontinued, Per Potassium Replacement Protocol, Administer as alternative if patient unable to tolerate oral tablet. K Lab Replacement Action 3.1 to 3.5 40 mEq ORAL x 1 Under 3.1 Refer to IV replacement protocol Recheck K level in AM. Protocol not for use in patients with CrCl less than 30 mL/min. Do not chew or crush. Dissolve flavored tablets completely in 3 to 4 ounces of cold water; unflavored tablets may be dissolved in 3 to 4 ounces of cold juice. Patient to sip slowly over a 5 to 10 minute period. May further dilute if GI adverse effects occur. potassium chloride (KLOR-CON M) extended release tablet 40 mEq(Linked Group 4) 40 mEq, Oral, PRN, Starting on Wed09/06/23 at 194, Until Discontinued, Potassium Replacement, May give alternative linked oral order (ordered as effervescent, packet, or liquid solution) if patient unable to tolerate tablet. K Lab Replacement Action 3.1 to 3.5 40 mEq ORAL x 1 Under 3.1 Refer to IV replacement protocol Recheck K level in AM. Protocol not for use in patients with CrCl less than 30 mL/min. Do not crush, chew, or suck on tablet. Tablet may also be broken in half and each half swallowed separately. potassium chloride 10 mEq/100 mL IVPB (Peripheral Line)(Linked Group 4) 10 mEq, IntraVENous, PRN, Starting on Wed09/06/23 at 1945, Until Discontinued, at 100 mL/hr, Potassium Replacement, K Lab Replacement Action 2.7 to 3.0 10 mEq IVPB x 6 doses (60 mEq Total) Under 2.7 CALL PROVIDER and administer 10 mEq IVPB x 6 doses (60 mEq Total) Infuse at 10 mEq/hr. Repeat Potassium lab 1 hour after final administration. Protocol not for use in patients with CrCl less than 30 mL/min. sodium chloride flush 0.9 % injection 5-40 mL 5-40 mL, IntraVENous, PRN, Starting on Wed09/06/23 at 1945, Until Discontinued, Line Care, After every IV line use, For Line Patency: Peripheral IV = 5 mL; Midline or Central Line = 10 mL/lumen. If following IV push medication, administer flush at same rate as the IV push. Flush volume is determined by type of infusion therapy being given. For non-viscous solutions use: Peripheral IV = 5 mL Midline or Central Line = 10 mL/lumen For viscous solutions (i.e. blood components, parenteral nutrition, contrast media, or after obtaining blood sample) use: Peripheral IV = 10 mL Midline or Central Line = 20 mL/lumen Linked Groups Order Group 1: acetaminophen (TYLENOL) tablet 650 mgJump to med 650 mg, Oral, EVERY 6 HOURS PRN, Starting on Wed09/06/23 at 1945, Until Discontinued, Pain Mild (1-3), Fever, For temp greater than 100.4 F (38 C)
Maximum dose of acetaminophen is 4000 mg from all sources in 24 hours.
Or acetaminophen (TYLENOL) suppository 650 mgJump to med 650 mg, Rectal, EVERY 6 HOURS PRN, Starting on Wed09/06/23 at 1946, Until Discontinued, Pain Mild (1-3), Fever, For temp greater than 100.4 F (38 C)
Administer if oral route cannot be used.
Group 2: dextrose bolus 10% 125 mLJump to med 125 mL, IntraVENous, at 937.5 mL/hr, Administer over 8 Minutes, PRN, Other, Blood glucose 40 - 69 mg/dL and patient NOT ALERT or NPO, Starting on Wed09/06/23 at 1953
Repeat blood glucose in 15 minutes. If blood glucose remains LESS THAN 70 mg/dL, repeat treatment and recheck blood glucose in 15 minutes x 2. If using glycemic management system, dose as instructed per system. If blood glucose remains LESS THAN 70 mg/dL after 2 intravenous boluses start dextrose 10% at 100 mL/hour and notify provider.
Or dextrose bolus 10% 250 mLJump to med 250 mL, IntraVENous, at 937.5 mL/hr, Administer over 16 Minutes, PRN, Other, Blood glucose LESS THAN 40 mg/dL and patient NOT ALERT or NPO, Starting on Wed09/06/23 at 1953
Repeat blood glucose in 15 minutes. If blood glucose remains LESS THAN 70 mg/dL, repeat treatment and recheck blood glucose in 15 minutes x 2. If using glycemic management system, dose as instructed per system. If blood glucose remains LESS THAN 70 mg/dL after 2 intravenous boluses start dextrose 10% at 100 mL/hour and notify provider.
Group 3: ondansetron (ZOFRAN-ODT) disintegrating tablet 4 mgJump to med 4 mg, Oral, EVERY 8 HOURS PRN, Starting on Wed09/06/23 at 1946, Until Discontinued, Nausea, Vomiting Or ondansetron (ZOFRAN) injection 4 mgJump to med 4 mg, IntraVENous, EVERY 6 HOURS PRN, Starting on Wed09/06/23 at 1946, Until Discontinued, Nausea, Vomiting
Administer if oral route cannot be used.
Group 4: potassium chloride (KLOR-CON M) extended release tablet 40 mEqJump to med 40 mEq, Oral, PRN, Starting on Wed09/06/23 at 194, Until Discontinued, Potassium Replacement
May give alternative linked oral order (ordered as effervescent, packet, or liquid solution) if patient unable to tolerate tablet. K Lab Repla cemen t Action 3.1 to 3.5 40 mEq ORAL x 1 Under 3.1 Refer to IV replacement protocol Recheck K level in AM. Protocol not for use in patients with CrCl less than 30 mL/min. Do not crush, chew, or suck on tablet. Tablet may also be broken in half and each half swallowed separately.
Or potassium bicarb-citric acid (EFFER-K) effervescent tablet 40 mEqJump to med 40 mEq, Oral, PRN, Starting on Wed09/06/23 at 194, Until Discontinued, Per Potassium Replacement Protocol
Administer as alternative if patient unable to tolerate oral tablet. K Lab Repla cemen t Action 3.1 to 3.5 40 mEq ORAL x 1 Under 3.1 Refer to IV replacement protocol Recheck K level in AM. Protocol not for use in patients with CrCl less than 30 mL/min. Do not chew or crush. Dissolve flavored tablets completely in 3 to 4 ounces of cold water; unflavored tablets may be dissolved in 3 to 4 ounces of cold juice. Patient to sip slowly over a 5 to 10 minute period. May further dilute if GI adverse effects occur.
Or potassium chloride 10 mEq/100 mL IVPB (Peripheral Line)Jump to med 10 mEq, IntraVENous, PRN, Starting on Wed09/06/23 at 1946, Until Discontinued, at 100 mL/hr, Potassium Replacement
K Lab Replacement Action 2.7 to 3.0 10 mEq IVPB x 6 doses (60 mEq Total) Under 2.7 CALL PROVIDER and administer 10 mEq IVPB x 6 doses (60 mEq Total) Infuse at 10 mEq/hr. Repeat Potassium lab 1 hour after final administration. Protocol not for use in patients with CrCl less than 30 mL/min.
FOR RECORDS PERTAINING TO PATIENTS WHO ARE [...] BE BASED ON THE PRIMARY CLINICAL RECORDS. [employer] provides no warranty or guarantee of the accuracy or completeness of information in this document.
--- NOTE | 2024-09-07 19:18 | ED.AMS1 ---
HPI - Altered Mental Status General Chief Complaint: Altered Mental Status Stated Complaint: other Time Seen by Provider: 09/07/24 19:11 Source: caregiver and other (EMS) Source comment: [facility] Mode of arrival: walk-in Limitations: no limitations History of Present Illness HPI narrative: The patient is a 78-year-old female who presents to the emergency department from the [facility]. She has a history of a previous stroke, diabetes mellitus type 2, and chronic O2 use. The patient is being brought to the emergency department today for altered mental status. Last known well was unknown. When the patient had the altered mental status at 1 point she was shaking and had apparently became unresponsive. Patient has no documented history of seizures. There was no documented postictal phase . The patient also had developed left calf redness which is new although we are not certain as to when this calf redness appeared. The patient's apparent baseline is talkative and alert and oriented x 2-3. The patient herself can provide no meaningful history. Related Data Home Medications ?Medication ?Instructions ?Recorded ?Confirmed acetaminophen 500 mg capsule 1,000 mg PO DAILY 09/06/23 09/07/24 atorvastatin 20 mg tablet (Lipitor) 20 mg PO DAILY 09/06/23 09/07/24 calcium 500 mg (as 1 tab PO BID 09/06/23 12/07/23 carbonate)-vitamin D3 10 mcg (400 unit) tablet (Oyster Shell Calcium-Vitamin D3) dextromethorphan 20 mg-quinidine 1 cap PO Q12H 09/06/23 09/07/24 10 mg capsule (Nuedexta) duloxetine 30 mg capsule,delayed 30 mg PO DAILY 09/06/23 09/07/24 release (Cymbalta) ferrous sulfate 325 mg (65 mg 325 mg PO BID 09/06/23 09/07/24 iron) tablet (FeroSul) lamotrigine 100 mg tablet 100 mg PO DAILY 09/06/23 09/07/24 (Lamictal) magnesium 200 mg tablet 400 mg PO DAILY 09/06/23 09/07/24 melatonin 10 mg capsule 6 mg PO DAILY 09/06/23 09/07/24 memantine 21 mg capsule 21 mg PO DAILY 09/06/23 09/07/24 sprinkle,extended release 24hr metformin 1,000 mg tablet 1,000 mg PO DAILY 09/06/23 09/07/24 nitroglycerin 0.4 mg sublingual 0.4 mg sublingual Q5M 09/06/23 09/07/24 tablet (Nitrostat) polyethylene glycol 3350 17 17 g PO QID constipation 09/06/23 09/07/24 gram/dose oral powder (ClearLax) psyllium husk 0.4 gram capsule 0.4 g PO BID 09/06/23 12/07/23 (Daily Fiber) rivaroxaban 20 mg tablet (Xarelto) 20 mg PO DAILY 09/06/23 09/07/24 spironolactone 50 mg tablet 50 mg PO DAILY 09/06/23 09/07/24 artificial 1 drp ophthalmic (eye) Q12H 09/24/23 09/07/24 tears(miieyea-rlokknre-satvirl) 0.1 %-0.3 %-0.2 % eye drops (GenTeal Tears Moderate) clobetasol 0.05 % topical cream 1 applic topical BID PRN vaginal 09/24/23 09/07/24 irritation famotidine 40 mg tablet (Pepcid) 40 mg PO DAILY 09/24/23 09/07/24 lamotrigine 25 mg tablet 25 mg PO DAILY 09/24/23 09/07/24 linagliptin 5 mg tablet (Tradjenta) 5 mg PO DAILY 09/24/23 09/07/24 furosemide 20 mg tablet 20 mg PO QDAY 10/06/23 09/07/24 midodrine 5 mg tablet 5 mg PO BID PRN hypotension 10/06/23 09/07/24 sotalol 80 mg tablet 80 mg PO Q12H 12/07/23 12/07/23 amiodarone 200 mg tablet 200 mg PO DAILY 03/30/24 09/07/24 albuterol sulfate 0.63 mg/3 mL 0.63 mg inhalation Q6H PRN 09/07/24 09/07/24 solution for nebulization shortness of breath or wheezing calcium 250 mg (as 1 tab PO BID 09/07/24 09/07/24 carbonate)-vitamin D3 3.125 mcg (125 unit) tablet (Oyster Shell + D3) empagliflozin 10 mg tablet 10 mg PO DAILY 09/07/24 09/07/24 (Jardiance) hydroxyzine HCl 10 mg tablet 10 mg PO TID PRN unknown 09/07/24 09/07/24 insulin glargine 100 unit/mL (3 15 unit subcut DAILY 09/07/24 09/07/24 mL) subcutaneous pen (Lantus Solostar U-100 Insulin) iodosorb topical DAILY 09/07/24 nystatin 100,000 unit/gram topical 1 applic topical BID 09/07/24 09/07/24 powder (Nyamyc) oxymetazoline 0.05 % nasal spray 2 spray intranasal DAILY PRN nasal 09/07/24 09/07/24 (12 Hour Nasal Relief [place]) congestion pioglitazone 15 mg tablet (Actos) 15 mg PO DAILY 09/07/24 09/07/24 psyllium husk 0.4 gram capsule 0.4 g PO BID 09/07/24 09/07/24 (Daily Fiber) simethicone 125 mg chewable tablet 125 mg PO DAILY PRN abdominal 09/07/24 09/07/24 (Gas Relief Extra Strength) distention sodium chloride 0.65 % nasal spray 1 spray intranasal QID 09/07/24 09/07/24 aerosol ([place] Saline) Previous Rx's ?Medication ?Instructions ?Recorded ciprofloxacin HCl 250 mg tablet 250 mg PO BID 3 days #6 tabs 03/30/24 (Cipro) Allergies Allergy/AdvReac Type Severity Reaction Status Date / Time aspirin Allergy Unknown Unknown Verified 09/07/24 20:15 fluoxetine (From Prozac) Allergy Unknown Unknown Verified 09/07/24 20:15 hydrochlorothiazide Allergy Unknown Unknown Verified 09/07/24 20:15 Penicillins Allergy Unknown Unknown Verified 09/07/24 20:15 pregabalin (From Lyrica) Allergy Unknown Unknown Verified 09/07/24 20:15 sertraline (From Zoloft) Allergy Unknown Unknown Verified 09/07/24 20:15 Sulfa (Sulfonamide Allergy Unknown Unknown Verified 09/07/24 20:15 Antibiotics) tetanus and diphtheria Allergy Unknown Unknown Verified 09/07/24 20:15 toxoids Review of Systems ROS Narrative 10 Systems were reviewed, and unless noted in the HPI, all other systems are reviewed, unremarkable, or noncontributory. 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 ?Z79.01 - terminal manager (current) use of anticoagulants (ICD-10) Constipation ?K59.00 - Constipation, unspecified (ICD-10) Muscle weakness ?M62.81 - Muscle weakness (generalized) (ICD-10) Muscle wasting and atrophy, not elsewhere classified, unspecified site ?M62.50 - Muscle wasting and atrophy, not elsewhere classified, unspecified site (ICD-10) Pruritus ?L29.9 - Pruritus, unspecified (ICD-10) Hypertension ?I10 - Essential (primary) hypertension (ICD-10) Unspecified fracture of lower end of left humerus, subsequent encounter for fracture with routine healing ?S42.402D - Unspecified fracture of lower end of left humerus, subsequent encounter for fracture with routine healing (ICD-10) Chronic pain ?G89.29 - Other chronic pain (ICD-10) Edema ?R60.9 - Edema, unspecified (ICD-10) Unspecified fracture of shaft of humerus, left arm, subsequent encounter for fracture with routine healing ?S42.302D - Unspecified fracture of shaft of humerus, left arm, subsequent encounter for fracture with routine healing (ICD-10) Morbid obesity due to excess calories ?E66.01 - Morbid (severe) obesity due to excess calories (ICD-10) Restlessness and agitation ?R45.1 - Restlessness and agitation (ICD-10) Hallucination ?R44.3 - Hallucinations, unspecified (ICD-10) Repeated falls ?R29.6 - Repeated falls (ICD-10) Cerebral infarction ?I63.9 - Cerebral infarction, unspecified (ICD-10) COVID-19 ?U07.1 - COVID-19 (ICD-10) Hypotension ?I95.9 - Hypotension, unspecified (ICD-10) Atelectasis ?J98.11 - Atelectasis (ICD-10) Acidosis ?E87.20 - Acidosis, unspecified (ICD-10) Disorientation ?R41.0 - Disorientation, unspecified (ICD-10) Adverse effect of cardiac-stimulant glycosides and drugs of similar action, subsequent encounter ?T46.0X5D - Adverse effect of cardiac-stimulant glycosides and drugs of similar action, subsequent encounter (ICD-10) Shortness of breath ?R06.02 - Shortness of breath (ICD-10) Acute respiratory failure with hypoxia ?J96.01 - Acute respiratory failure with hypoxia (ICD-10) Atrial fibrillation with RVR ?I48.91 - Unspecified atrial fibrillation (ICD-10) Chest pain ?R07.9 - Chest pain, unspecified (ICD-10) Other specified disorders of bone density and structure, other site ?M85.88 - Other specified disorders of bone density and structure, other site (ICD-10) Osteoarthritis ?M19.90 - Unspecified osteoarthritis, unspecified site (ICD-10) Altered mental status ?R41.82 - Altered mental status, unspecified (ICD-10) Neuralgia and neuritis, unspecified ?M79.2 - Neuralgia and neuritis, unspecified (ICD-10) Unilateral primary osteoarthritis, right knee ?M17.11 - Unilateral primary osteoarthritis, right knee (ICD-10) Pseudobulbar affect ?F48.2 - Pseudobulbar affect (ICD-10) Anxiety ?F41.9 - Anxiety disorder, unspecified (ICD-10) Insomnia ?G47.00 - Insomnia, unspecified (ICD-10) Asthma ?J45.909 - Unspecified asthma, uncomplicated (ICD-10) GERD (gastroesophageal reflux disease) ?K21.9 - Gastro-esophageal reflux disease without esophagitis (ICD-10) Spondylosis without myelopathy or radiculopathy ?M47.819 - Spondylosis without myelopathy or radiculopathy, site unspecified (ICD-10) Anemia ?D64.9 - Anemia, unspecified (ICD-10) Hyperlipidemia ?E78.5 - Hyperlipidemia, unspecified (ICD-10) Major depressive disorder ?F32.9 - Major depressive disorder, single episode, unspecified (ICD-10) Unspecified dementia, unspecified severity, with agitation ?F03.911 - Unspecified dementia, unspecified severity, with agitation (ICD-10) Paroxysmal atrial fibrillation ?I48.0 - Paroxysmal atrial fibrillation (ICD-10) Atherosclerotic heart disease of [place] coronary artery without angina pectoris ?I25.10 - Atherosclerotic heart disease of [place] coronary artery without angina pectoris (ICD-10) Type 2 diabetes mellitus ?E11.9 - Type 2 diabetes mellitus without complications (ICD-10) Hemiplegia and hemiparesis 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 ?I69.354 - Hemiplegia and hemiparesis 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 (ICD-10) Heart failure ?I50.9 - Heart failure, unspecified (ICD-10) Hypertensive heart disease with heart failure ?I11.0 - Hypertensive heart disease with heart failure (ICD-10) Dysphagia following cerebral infarction ?I69.391 - Dysphagia following cerebral infarction (ICD-10) Metabolic encephalopathy ?G93.41 - Metabolic encephalopathy (ICD-10) Cerebrovascular disease, unspecified ?I67.9 - Cerebrovascular disease, unspecified (ICD-10) Social History Highest level of school completed/degree received: high school graduate Exam Narrative Exam Narrative: Prior to examining the patient, I have washed with hospital approved and provided Antiseptic Hand Health Inspector Food and have also applied gloves.? General: Arouses to loud verbal and tactile stimulation, obese, moderate distress, unable to provide history Eye: PERRL, EOMI, normal conjunctiva. HENT: Normocephalic, normal hearing, dry oral mucosa, no scleral icterus, no sinus tenderness. Neck: Supple, non-tender, no carotid bruits, no JVD, no lymphadenopathy. Lungs: Clear to auscultation and percussion, non-labored respiration. Diminished lung sounds. No rhonchi, rales, wheezing. Patient is on chronic 2 L nasal cannula Heart: Normal rate, regular rhythm, no murmur, gallop or edema. Abdomen: Soft, non-tender, non-distended, normal bowel sounds, no masses. Obese Musculoskeletal: Symmetrical strength and size to the extremities. Patient does move the right upper extremity albeit limited. It is unable to determine if the patient's inability to move the extremity is a factor of understanding the question, generalized weakness, or lateralizing symptoms. Skin: Skin is warm, dry and pink, no rashes or lesions. Patient does have an area in the left calf that circumferential that is erythematous and warm to the touch. Neurologic: Arouses to noxious stimuli and verbal stimuli. CN II-XII intact. Psychiatric: Unable to assess at this time Following the conclusion of the examination, I have washed my hands thoroughly after removing examination gloves. Constitutional Vital Signs, click to edit/add: Last Vital Signs Temp 97.6 F 09/08/24 04:13 Pulse 67 09/08/24 06:23 Resp 23 H 09/08/24 04:00 BP 126/84 09/08/24 04:00 Pulse Ox 97 09/08/24 03:12 O2 Del Method Nasal Cannula 09/08/24 03:12 O2 Flow Rate 2 09/08/24 03:12 Course Vital Signs Vital signs: Vital Signs Oxygen Delivery Method Nasal Cannula 09/07/24 19:12 Temperature 97.6 F 09/08/24 04:13 Pulse Rate 67 09/08/24 06:23 Respiratory Rate 23 H 09/08/24 04:00 Blood Pressure 126/84 09/08/24 04:00 Pulse Oximetry 97 09/08/24 03:12 Oxygen Delivery Method Nasal Cannula 09/08/24 03:12 Oxygen Delivery Flow Rate 2 09/08/24 03:12 MDM - Altered Mental Status MDM Narrative Medical decision making narrative: Is a 78-year-old who arrives from the [facility]. Patient has a history of the same that seem to be associated with infection. I did evaluate the patient with a broad differential for stroke like etiology versus metabolic problem. It ends up being more of a metabolic problem with sepsis from multifactorial causes. I believe that the patient's pneumonia has contributed to her low oxygen level. In addition, I think urinary tract infection has also contributed to the patient's sepsis. Now, the patient has no evidence of severe sepsis or septic shock at time of admission. Differential Diagnosis Differential diagnosis: Likely altered mental status, delirium, hypoglycemia, hyponatremia and sepsis Medical Records Attestation: I reviewed the patient's medical records. Lab Data Attestation: I reviewed the patient's lab results. Lab results narrative: Patient is white blood cell count elevation. Patient did have a lactic acid elevation at 2.6 but did resolve to 1.7 after modest therapy. Patient potassium is 6.4. There is no evidence of any hyperacute T waves. She does have some evidence of a mild acute kidney injury. Patient was given fluids. I did not give the patient all of the other modalities because I believe that the intravenous fluids alone will improve the potassium. This will need to be redrawn. Labs: Lab Results 09/07/24 09/07/24 09/07/24 Range/Units 19:14 19:17 19:43 WBC 26.6 H (4.0-11.0) 10^3/uL RBC 3.82 L (4.20-5.40) 10^6/uL Hgb 11.5 L (12.0-16.0) g/dL Hct 36.5 (36.0-48.0) % MCV 95.5 (81.0-99.0) fL MCH 30.1 (26.7-34.0) pg MCHC 31.5 (29.9-35.2) g/dL RDW 17.7 H (11.0-15.0) % Plt Count 331 (150-450) 10^3/uL MPV 9.2 L (9.5-13.5) fL Seg Neuts % (Manual) 93.0 H (43.0-75.0) Lymphocytes % (Manual) 2.0 L (20.5-60.0) % Monocytes % (Manual) 4.0 (1.7-12.0) % Eosinophils % (Manual) 1.0 (0.9-7.0) % Basophils % (Manual) 0.0 L (0.2-2.0) % Neutrophils # (Manual) 24.73 H (1.4-6.5) 10^3/uL Lymphocytes # (Manual) 0.53 L (1.20-3.80) 10^3/uL Monocytes # (Manual) 1.06 H (0.30-0.80) 10^3/uL Eosinophils # (Manual) 0.26 (0.00-0.70) 10^3/uL Basophils # (Manual) 0.00 (0.00-0.10) 10^3/uL PT 15.7 H (9.0-11.6) sec INR 1.55 Sodium (136-145) mmol/L Potassium (3.5-5.1) mmol/L Chloride (98-107) mmol/L Carbon Dioxide (21.0-32.0) mmol/L Anion Gap BUN (7.0-18.0) mg/dL Creatinine (0.55-1.02) mg/dL Est GFR ( Amer) (>=60 mL/min/1.73m^2) Est GFR (Non-Af Amer) (>=60 mL/min/1.73m^2) BUN/Creatinine Ratio Glucose (74-106) mg/dL Lactate 2.6 H* (0.4-2.0) mmol/L Calcium (8.5-10.1) mg/dL Total Bilirubin (0.2-1.0) mg/dL AST (15-37) U/L ALT (14-59) U/L Alkaline Phosphatase (46-116) U/L Troponin I High Sens (4.0-51.3) pg/mL C-Reactive Protein (<=0.50) mg/dL Total Protein (6.4-8.2) g/dL Albumin (3.4-5.0) g/dL Globulin g/dL Albumin/Globulin Ratio Urine Color Lt. yellow (YELLOW) Urine Clarity Sl cloudy (CLEAR) Urine pH 7.0 (5.0-9.0) Ur Specific [place] 1.010 (1.005-1.025) Urine Protein Trace (NEG/TRACE) mg/dL Urine Glucose (UA) 500 A (NEGATIVE) mg/dL Urine Ketones Negative (NEGATIVE) mg/dL Urine Occult Blood Trace-i (NEGATIVE) Urine Nitrite Negative (NEGATIVE) Urine Bilirubin Negative (NEGATIVE) Urine Urobilinogen 0.2 (0.2-1.0) EU/dL Ur Leukocyte Esterase Small A (NEGATIVE) Urine RBC 0-2 (0-2) #/HPF Urine WBC >100 A (NONE SEEN) #/HPF Ur Squamous Epith Cells Few A (NONE/RARE) #/LPF Urine Crystals None seen (None Seen) #/HPF Urine Bacteria Large A (NONE SEEN) #/HPF Urine Casts Seen A (NONE SEEN) #/LPF Hyaline Casts Rare Urine Mucus Small A (NONE SEEN) Ur Culture Indicated? [place] [place] Glucose 140 H (74-106) mg/dL 09/07/24 09/07/24 Range/Units 20:34 22:37 WBC (4.0-11.0) 10^3/uL RBC (4.20-5.40) 10^6/uL Hgb (12.0-16.0) g/dL Hct (36.0-48.0) % MCV (81.0-99.0) fL MCH (26.7-34.0) pg MCHC (29.9-35.2) g/dL RDW (11.0-15.0) % Plt Count (150-450) 10^3/uL MPV (9.5-13.5) fL Seg Neuts % (Manual) (43.0-75.0) Lymphocytes % (Manual) (20.5-60.0) % Monocytes % (Manual) (1.7-12.0) % Eosinophils % (Manual) (0.9-7.0) % Basophils % (Manual) (0.2-2.0) % Neutrophils # (Manual) (1.4-6.5) 10^3/uL Lymphocytes # (Manual) (1.20-3.80) 10^3/uL Monocytes # (Manual) (0.30-0.80) 10^3/uL Eosinophils # (Manual) (0.00-0.70) 10^3/uL Basophils # (Manual) (0.00-0.10) 10^3/uL PT (9.0-11.6) sec INR Sodium 134 L (136-145) mmol/L Potassium 6.4 H* (3.5-5.1) mmol/L Chloride 97 L (98-107) mmol/L Carbon Dioxide 30.9 (21.0-32.0) mmol/L Anion Gap 12.5 BUN 28.0 H (7.0-18.0) mg/dL Creatinine 1.51 H (0.55-1.02) mg/dL Est GFR ( Amer) 40 L (>=60 mL/min/1.73m^2) Est GFR (Non-Af Amer) 33 L (>=60 mL/min/1.73m^2) BUN/Creatinine Ratio 18.5 Glucose 123 H (74-106) mg/dL Lactate 1.7 (0.4-2.0) mmol/L Calcium 10.2 H (8.5-10.1) mg/dL Total Bilirubin 0.6 (0.2-1.0) mg/dL AST 19 (15-37) U/L ALT 12 L (14-59) U/L Alkaline Phosphatase 74 (46-116) U/L Troponin I High Sens 18.2 (4.0-51.3) pg/mL C-Reactive Protein 16.30 H (<=0.50) mg/dL Total Protein 8.1 (6.4-8.2) g/dL Albumin 2.7 L (3.4-5.0) g/dL Globulin 5.4 g/dL Albumin/Globulin Ratio 0.5 Urine Color (YELLOW) Urine Clarity (CLEAR) Urine pH (5.0-9.0) Ur Specific [place] (1.005-1.025) Urine Protein (NEG/TRACE) mg/dL Urine Glucose (UA) (NEGATIVE) mg/dL Urine Ketones (NEGATIVE) mg/dL Urine Occult Blood (NEGATIVE) Urine Nitrite (NEGATIVE) Urine Bilirubin (NEGATIVE) Urine Urobilinogen (0.2-1.0) EU/dL Ur Leukocyte Esterase (NEGATIVE) Urine RBC (0-2) #/HPF Urine WBC (NONE SEEN) #/HPF Ur Squamous Epith Cells (NONE/RARE) #/LPF Urine Crystals (None Seen) #/HPF Urine Bacteria (NONE SEEN) #/HPF Urine Casts (NONE SEEN) #/LPF Hyaline Casts Urine Mucus (NONE SEEN) Ur Culture Indicated? POC Glucose (74-106) mg/dL Imaging Data CT scan - head: Attestation: I have reviewed the pertinent imaging results. Radiologist's impression: ITS Impressions Brain CT 09/07/24 19:12 IMPRESSION: Remote infarcts are noted as There is no CT evidence of acute to subacute ischemia. If there is ongoing clinical concern, further evaluation with MRI may be helpful. 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 Impression dictated by: Pradeep Tellez M.D. 09/07/2024 7:46 PM Dictation Location: [employer] Electronically authenticated by: [id number] Y Date: 09/07/2024 19:46 Chest X-Ray 09/07/24 19:12 IMPRESSION: Basilar airspace opacities are noted left greater than right, worse when compared to the prior exam. There is a left-sided pleural effusion. Impression dictated by: Pradeep Tellez M.D. 09/07/2024 7:47 PM Dictation Location: [employer] Electronically authenticated by: [id number] Y Date: 09/07/2024 19:47 Head CTA 09/07/24 19:12 IMPRESSION: No evidence of aneurysmal dilatation, dissection or occlusion. Calcified plaque is noted in the carotid bifurcations with 75% narrowing of the proximal right internal carotid artery and 80% narrowing of the proximal left internal carotid artery. Calcified plaque is noted in the origins of the vertebral arteries contributing to severe stenosis bilaterally. Calcified plaque is noted in the proximal subclavian arteries bilaterally contributing to moderate stenosis bilaterally. Calcified plaques noted in the intracranial segments of the internal carotid arteries with mild to moderate multifocal narrowing greatest in the supraclinoid segments bilaterally. Bilateral airspace opacities are noted with a moderate to large left-sided pleural effusion. Impression dictated by: Pradeep Tellez M.D. 09/07/2024 10:02 PM Dictation Location: [employer] Electronically authenticated by: [id number] Y Date: 09/07/2024 22:02 Neck CTA 09/07/24 19:12 IMPRESSION: No evidence of aneurysmal dilatation, dissection or occlusion. Calcified plaque is noted in the carotid bifurcations with 75% narrowing of the proximal right internal carotid artery and 80% narrowing of the proximal left internal carotid artery. Calcified plaque is noted in the origins of the vertebral arteries contributing to severe stenosis bilaterally. Calcified plaque is noted in the proximal subclavian arteries bilaterally contributing to moderate stenosis bilaterally. Calcified plaques noted in the intracranial segments of the internal carotid arteries with mild to moderate multifocal narrowing greatest in the supraclinoid segments bilaterally. Bilateral airspace opacities are noted with a moderate to large left-sided pleural effusion. Impression dictated by: Pradeep Tellez M.D. 09/07/2024 10:02 PM Dictation Location: [employer] Electronically authenticated by: [id number] Y Date: 09/07/2024 22:02 ECG Data Attestation: I personally reviewed and interpreted this ECG as follows: ECG interpretation date: 09/07/24 Prior ECG tracings: available for review Ischemic changes: non-specific ST-T wave changes Discharge Plan Discharge Chief Complaint: Altered Mental Status Clinical Impression: Acute metabolic encephalopathy, Acute UTI, Sepsis, Cellulitis of left lower leg, Bilateral pneumonia Patient Disposition: Admitted As Inpatient Time of Disposition Decision: 23:49 Condition: Fair Discharge Date/Time: 09/08/24 00:10
[2024-09-07 19:46] LABS: Glucometer 140 mg/dL (74-106)
[2024-09-07] MEDS: CEFTRIAXONE 1,000 MG in 0.9 % SODIUM CHLORIDE 50 ML 100 MG IV (19:58)
[2024-09-07 19:59] LABS: Hematocrit 36.5 % (36.0-48.0); Hemoglobin 11.5 g/dL (12.0-16.0); Mean Corpuscular HGB Conc 31.5 g/dL (29.9-35.2); Mean Corpuscular Hemoglobin 30.1 pg (26.7-34.0); Mean Corpuscular Volume 95.5 fL (81.0-99.0); Mean Platelet Volume 9.2 fL (9.5-13.5); Platelet Count 331 10^3/uL (150-450); Red Blood Count 3.82 10^6/uL (4.20-5.40); Red Cell Distribution Width 17.7 % (11.0-15.0); White Blood Count 26.6 10^3/uL (4.0-11.0)
[2024-09-07 20:04] LABS: Bilirubin Urine NEGATIVE (NEGATIVE); Blood Urine TRACE-I (NEGATIVE); Clarity Urine SL CLOUDY (CLEAR); Color Urine LT. YELLOW (YELLOW); Glucose Urine UA 500 mg/dL (NEGATIVE); Ketones Urine NEGATIVE (NEGATIVE); Leukocyte Esterase Urine SMALL (NEGATIVE); Nitrite Urine NEGATIVE (NEGATIVE); Protein Urine TRACE mg/dL (NEG/TRACE); Urobilinogen Urine 0.2 EU/dL (0.2-1.0)
[2024-09-07 20:10] LABS: Bacteria Urine LARGE #/HPF (NONE SEEN); Mucus Urine SMALL (NONE SEEN); RBC Urine 0-2 #/HPF (0-2); WBC Urine >100 #/HPF (NONE SEEN)
[2024-09-07 20:11] LABS: Cast Seen? SEEN #/LPF (NONE SEEN); Crystals Seen? None Seen #/HPF (None Seen); Hyaline Casts Urine RARE; Squamous Epithelial Cell Urine FEW #/LPF (NONE/RARE); Urine Culture Indicated YES-FRMC
[2024-09-07 20:20] LABS: INR 1.55; Prothrombin Time 15.7 sec (9.0-11.6)
[2024-09-07 20:28] LABS: Lactate/Lactic Acid 2.6 mmol/L (0.4-2.0)
[2024-09-07 20:33] LABS: Eosinophils Absolute Manual 0.26 10^3/uL (0.00-0.70); Lymphocytes Absolute Manual 0.53 10^3/uL (1.20-3.80); Monocytes Absolute Manual 1.06 10^3/uL (0.30-0.80); Segmented Neut Absolute Manual 24.73 10^3/uL (1.4-6.5)
[2024-09-07 20:56] LABS: Alanine Aminotransferase 12 U/L (14-59); Albumin Globulin Ratio 0.5; Albumin Level 2.7 g/dL (3.4-5.0); Alkaline Phosphatase 74 U/L (46-116); Anion Gap 12.5; Aspartate Amino Transferase 19 U/L (15-37); BUN Creatinine Ratio 18.5; Bilirubin Total 0.6 mg/dL (0.2-1.0); Calcium 10.2 mg/dL (8.5-10.1); Carbon Dioxide 30.9 mmol/L (21.0-32.0); Chloride 97 mmol/L (98-107); Estimated GFR (African America 40 (>=60 mL/min/1.73m^2); Estimated GFR (Non-African Ame 33 (>=60 mL/min/1.73m^2); Globulin 5.4 g/dL; Glucose 123 mg/dL (74-106); Sodium 134 mmol/L (136-145); Total Protein 8.1 g/dL (6.4-8.2); Troponin I High Sensitivity 18.2 pg/mL (4.0-51.3)
[2024-09-07 20:59] LABS: Potassium 6.4 mmol/L (3.5-5.1)
[2024-09-07] MEDS: 0.9 % SODIUM CHLORIDE 1,000 ML 1000 ML IV (21:41)
[2024-09-07] MEDS: AZITHROMYCIN 500 MG in 0.9 % SODIUM CHLORIDE 250 ML 250 MG IV (21:42)
[2024-09-07 23:04] LABS: Lactate/Lactic Acid 1.7 mmol/L (0.4-2.0)
--- NOTE | 2024-09-07 23:50 | ED.AMS1 ---
HPI - Altered Mental Status General Chief Complaint: Altered Mental Status Stated Complaint: other Time Seen by Provider: 09/07/24 19:11 Source: caregiver and other (EMS) Source comment: [place] Mode of arrival: walk-in Limitations: no limitations History of Present Illness HPI narrative: The patient is a 78-year-old female presenting from the [place]. History of numerous medical problems including: Metabolic encephalopathy, diabetes mellitus type 2, pneumonia, atypical chest pain, atrial fibrillation, stroke, bradycardia. The patient presents today because she apparently had an episode of being unresponsive and the patient had an altered mental status. Last known well is unknown. The patient apparently was unable to respond. Her baseline is talkative and alert and oriented x 2-3. Patient is normally on 2 L nasal cannula at the facility. Patient had a previous stroke and is weak on the left side. The patient is a full code. Related Data Home Medications ?Medication ?Instructions ?Recorded ?Confirmed acetaminophen 500 mg capsule 1,000 mg PO DAILY 09/06/23 09/07/24 atorvastatin 20 mg tablet (Lipitor) 20 mg PO DAILY 09/06/23 09/07/24 calcium 500 mg (as 1 tab PO BID 09/06/23 12/07/23 carbonate)-vitamin D3 10 mcg (400 unit) tablet (Oyster Shell Calcium-Vitamin D3) dextromethorphan 20 mg-quinidine 1 cap PO Q12H 09/06/23 09/07/24 10 mg capsule (Nuedexta) duloxetine 30 mg capsule,delayed 30 mg PO DAILY 09/06/23 09/07/24 release (Cymbalta) ferrous sulfate 325 mg (65 mg 325 mg PO BID 09/06/23 09/07/24 iron) tablet (FeroSul) lamotrigine 100 mg tablet 100 mg PO DAILY 09/06/23 09/07/24 (Lamictal) magnesium 200 mg tablet 400 mg PO DAILY 09/06/23 09/07/24 melatonin 10 mg capsule 6 mg PO DAILY 09/06/23 09/07/24 memantine 21 mg capsule 21 mg PO DAILY 09/06/23 09/07/24 sprinkle,extended release 24hr metformin 1,000 mg tablet 1,000 mg PO DAILY 09/06/23 09/07/24 nitroglycerin 0.4 mg sublingual 0.4 mg sublingual Q5M 09/06/23 09/07/24 tablet (Nitrostat) polyethylene glycol 3350 17 17 g PO QID constipation 09/06/23 09/07/24 gram/dose oral powder (ClearLax) psyllium husk 0.4 gram capsule 0.4 g PO BID 09/06/23 12/07/23 (Daily Fiber) rivaroxaban 20 mg tablet (Xarelto) 20 mg PO DAILY 09/06/23 09/07/24 spironolactone 50 mg tablet 50 mg PO DAILY 09/06/23 09/07/24 artificial 1 drp ophthalmic (eye) Q12H 09/24/23 09/07/24 tears(uujyejy-nhfnpeom-mxozlhq) 0.1 %-0.3 %-0.2 % eye drops (GenTeal Tears Moderate) clobetasol 0.05 % topical cream 1 applic topical BID PRN vaginal 09/24/23 09/07/24 irritation famotidine 40 mg tablet (Pepcid) 40 mg PO DAILY 09/24/23 09/07/24 lamotrigine 25 mg tablet 25 mg PO DAILY 09/24/23 09/07/24 linagliptin 5 mg tablet (Tradjenta) 5 mg PO DAILY 09/24/23 09/07/24 furosemide 20 mg tablet 20 mg PO QDAY 10/06/23 09/07/24 midodrine 5 mg tablet 5 mg PO BID PRN hypotension 10/06/23 09/07/24 sotalol 80 mg tablet 80 mg PO Q12H 12/07/23 12/07/23 amiodarone 200 mg tablet 200 mg PO DAILY 03/30/24 09/07/24 albuterol sulfate 0.63 mg/3 mL 0.63 mg inhalation Q6H PRN 09/07/24 09/07/24 solution for nebulization shortness of breath or wheezing calcium 250 mg (as 1 tab PO BID 09/07/24 09/07/24 carbonate)-vitamin D3 3.125 mcg (125 unit) tablet (Oyster Shell + D3) empagliflozin 10 mg tablet 10 mg PO DAILY 09/07/24 09/07/24 (Jardiance) hydroxyzine HCl 10 mg tablet 10 mg PO TID PRN unknown 09/07/24 09/07/24 insulin glargine 100 unit/mL (3 15 unit subcut DAILY 09/07/24 09/07/24 mL) subcutaneous pen (Lantus Solostar U-100 Insulin) iodosorb topical DAILY 09/07/24 nystatin 100,000 unit/gram topical 1 applic topical BID 09/07/24 09/07/24 powder (Nyamyc) oxymetazoline 0.05 % nasal spray 2 spray intranasal DAILY PRN nasal 09/07/24 09/07/24 (12 Hour Nasal Relief [place]) congestion pioglitazone 15 mg tablet (Actos) 15 mg PO DAILY 09/07/24 09/07/24 psyllium husk 0.4 gram capsule 0.4 g PO BID 09/07/24 09/07/24 (Daily Fiber) simethicone 125 mg chewable tablet 125 mg PO DAILY PRN abdominal 09/07/24 09/07/24 (Gas Relief Extra Strength) distention sodium chloride 0.65 % nasal spray 1 spray intranasal QID 09/07/24 09/07/24 aerosol ([place] Saline) Previous Rx's ?Medication ?Instructions ?Recorded ciprofloxacin HCl 250 mg tablet 250 mg PO BID 3 days #6 tabs 03/30/24 (Cipro) Allergies Allergy/AdvReac Type Severity Reaction Status Date / Time aspirin Allergy Unknown Unknown Verified 09/07/24 20:15 fluoxetine (From Prozac) Allergy Unknown Unknown Verified 09/07/24 20:15 hydrochlorothiazide Allergy Unknown Unknown Verified 09/07/24 20:15 Penicillins Allergy Unknown Unknown Verified 09/07/24 20:15 pregabalin (From Lyrica) Allergy Unknown Unknown Verified 09/07/24 20:15 sertraline (From Zoloft) Allergy Unknown Unknown Verified 09/07/24 20:15 Sulfa (Sulfonamide Allergy Unknown Unknown Verified 09/07/24 20:15 Antibiotics) tetanus and diphtheria Allergy Unknown Unknown Verified 09/07/24 20:15 toxoids Review of Systems ROS Narrative 10 Systems were reviewed, and unless noted in the HPI, all other systems are reviewed, unremarkable, or noncontributory. 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 - retirement (current) use of anticoagulants (ICD-10) Constipation ?K59.00 - Constipation, unspecified (ICD-10) Muscle weakness ?M62.81 - Muscle weakness (generalized) (ICD-10) Muscle wasting and atrophy, not elsewhere classified, unspecified site ?M62.50 - Muscle wasting and atrophy, not elsewhere classified, unspecified site (ICD-10) Pruritus ?L29.9 - Pruritus, unspecified (ICD-10) Hypertension ?I10 - Essential (primary) hypertension (ICD-10) Unspecified fracture of lower end of left humerus, subsequent encounter for fracture with routine healing ?S42.402D - Unspecified fracture of lower end of left humerus, subsequent encounter for fracture with routine healing (ICD-10) Chronic pain ?G89.29 - Other chronic pain (ICD-10) Edema ?R60.9 - Edema, unspecified (ICD-10) Unspecified fracture of shaft of humerus, left arm, subsequent encounter for fracture with routine healing ?S42.302D - Unspecified fracture of shaft of humerus, left arm, subsequent encounter for fracture with routine healing (ICD-10) Morbid obesity due to excess calories ?E66.01 - Morbid (severe) obesity due to excess calories (ICD-10) Restlessness and agitation ?R45.1 - Restlessness and agitation (ICD-10) Hallucination ?R44.3 - Hallucinations, unspecified (ICD-10) Repeated falls ?R29.6 - Repeated falls (ICD-10) Cerebral infarction ?I63.9 - Cerebral infarction, unspecified (ICD-10) COVID-19 ?U07.1 - COVID-19 (ICD-10) Hypotension ?I95.9 - Hypotension, unspecified (ICD-10) Atelectasis ?J98.11 - Atelectasis (ICD-10) Acidosis ?E87.20 - Acidosis, unspecified (ICD-10) Disorientation ?R41.0 - Disorientation, unspecified (ICD-10) Adverse effect of cardiac-stimulant glycosides and drugs of similar action, subsequent encounter ?T46.0X5D - Adverse effect of cardiac-stimulant glycosides and drugs of similar action, subsequent encounter (ICD-10) Shortness of breath ?R06.02 - Shortness of breath (ICD-10) Acute respiratory failure with hypoxia ?J96.01 - Acute respiratory failure with hypoxia (ICD-10) Atrial fibrillation with RVR ?I48.91 - Unspecified atrial fibrillation (ICD-10) Chest pain ?R07.9 - Chest pain, unspecified (ICD-10) Other specified disorders of bone density and structure, other site ?M85.88 - Other specified disorders of bone density and structure, other site (ICD-10) Osteoarthritis ?M19.90 - Unspecified osteoarthritis, unspecified site (ICD-10) Altered mental status ?R41.82 - Altered mental status, unspecified (ICD-10) Neuralgia and neuritis, unspecified ?M79.2 - Neuralgia and neuritis, unspecified (ICD-10) Unilateral primary osteoarthritis, right knee ?M17.11 - Unilateral primary osteoarthritis, right knee (ICD-10) Pseudobulbar affect ?F48.2 - Pseudobulbar affect (ICD-10) Anxiety ?F41.9 - Anxiety disorder, unspecified (ICD-10) Insomnia ?G47.00 - Insomnia, unspecified (ICD-10) Asthma ?J45.909 - Unspecified asthma, uncomplicated (ICD-10) GERD (gastroesophageal reflux disease) ?K21.9 - Gastro-esophageal reflux disease without esophagitis (ICD-10) Spondylosis without myelopathy or radiculopathy ?M47.819 - Spondylosis without myelopathy or radiculopathy, site unspecified (ICD-10) Anemia ?D64.9 - Anemia, unspecified (ICD-10) Hyperlipidemia ?E78.5 - Hyperlipidemia, unspecified (ICD-10) Major depressive disorder ?F32.9 - Major depressive disorder, single episode, unspecified (ICD-10) Unspecified dementia, unspecified severity, with agitation ?F03.911 - Unspecified dementia, unspecified severity, with agitation (ICD-10) Paroxysmal atrial fibrillation ?I48.0 - Paroxysmal atrial fibrillation (ICD-10) Atherosclerotic heart disease of [place] coronary artery without angina pectoris ?I25.10 - Atherosclerotic heart disease of [place] coronary artery without angina pectoris (ICD-10) Type 2 diabetes mellitus ?E11.9 - Type 2 diabetes mellitus without complications (ICD-10) Hemiplegia and hemiparesis 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 ?I69.354 - Hemiplegia and hemiparesis 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 (ICD-10) Heart failure ?I50.9 - Heart failure, unspecified (ICD-10) Hypertensive heart disease with heart failure ?I11.0 - Hypertensive heart disease with heart failure (ICD-10) Dysphagia following cerebral infarction ?I69.391 - Dysphagia following cerebral infarction (ICD-10) Metabolic encephalopathy ?G93.41 - Metabolic encephalopathy (ICD-10) Cerebrovascular disease, unspecified ?I67.9 - Cerebrovascular disease, unspecified (ICD-10) Social History Highest level of school completed/degree received: high school graduate Exam Narrative Exam Narrative: Prior to examining the patient, I have washed with hospital approved and provided Antiseptic Hand Home Coordinator and have also applied gloves.? Prior to touching the patient, I asked for consent to examine the patient.? General: Alert and sluggish, well nourished, mild distress. Eye: PERRL, EOMI, normal conjunctiva. HENT: Normocephalic, normal hearing, moist oral mucosa, no scleral icterus, no sinus tenderness. Neck: Supple, non-tender, no carotid bruits, no JVD, no lymphadenopathy. Lungs: Diminished breath sounds in the bibasilar areas with crackles present., non-labored respiration. Heart: Normal rate, regular rhythm, no murmur, gallop or edema. Abdomen: Soft, non-tender, non-distended, normal bowel sounds, no masses. Musculoskeletal: Normal range of motion and strength, no tenderness or swelling. Skin: Skin is warm, dry and pink, no rashes or lesions. Erythematous left lower extremity with well-defined border and warm to the touch. Neurologic: Awake, alert, and oriented X self only, CN II-XII intact. Psychiatric: Patient is sluggish and not very interactive. Following the conclusion of the examination, I have washed my hands thoroughly after removing examination gloves. Constitutional Vital Signs, click to edit/add: Last Vital Signs Temp 98.6 F 09/08/24 12:00 Pulse 67 09/08/24 13:26 Resp 21 H 09/08/24 13:26 BP 149/66 H 09/08/24 13:26 Pulse Ox 93 L 09/08/24 13:26 O2 Del Method Nasal Cannula 09/08/24 03:12 O2 Flow Rate 2 09/08/24 03:12 Course Reevaluation(s) Reevaluation #1: I specifically asked about the patient's temperature and they did a rectal temperature was 102.1 Consultations Consultation #1: Spoke with hospitalists about taking the patient. Feel that the patient is an appropriate candidate to stay at our facility. Vital Signs Vital signs: Vital Signs Oxygen Delivery Method Nasal Cannula 09/07/24 19:12 Temperature 98.6 F 09/08/24 12:00 Pulse Rate 67 09/08/24 13:26 Respiratory Rate 21 H 09/08/24 13:26 Blood Pressure 149/66 H 09/08/24 13:26 Pulse Oximetry 93 L 09/08/24 13:26 Oxygen Delivery Method Nasal Cannula 09/08/24 03:12 Oxygen Delivery Flow Rate 2 09/08/24 03:12 MDM - Altered Mental Status MDM Narrative Medical decision making narrative: In seeing the patient I really do feel like the patient has a metabolic encephalopathy going on. I reviewed all of her medical records and that has happened to her in the past when she develops a fever and an infection. However, the patient did present in a timeframe more I have to be concerned about a stroke. Therefore stroke protocol was started and took precedence over what I felt to be more of a metabolic process with sepsis. The patient had the sepsis protocol followed. Antibiotics were administered in an appropriate timeframe. Patient is a full code at this time. Differential Diagnosis Differential diagnosis: Likely altered mental status, delirium, dementia, hypoglycemia, hyponatremia and sepsis Medical Records Attestation: I reviewed the patient's medical records. Lab Data Attestation: I reviewed the patient's lab results. Labs: Lab Results 09/07/24 09/07/24 09/07/24 Range/Units 19:14 19:17 19:43 WBC 26.6 H (4.0-11.0) 10^3/uL RBC 3.82 L (4.20-5.40) 10^6/uL Hgb 11.5 L (12.0-16.0) g/dL Hct 36.5 (36.0-48.0) % MCV 95.5 (81.0-99.0) fL MCH 30.1 (26.7-34.0) pg MCHC 31.5 (29.9-35.2) g/dL RDW 17.7 H (11.0-15.0) % Plt Count 331 (150-450) 10^3/uL MPV 9.2 L (9.5-13.5) fL Seg Neuts % (Manual) 93.0 H (43.0-75.0) Lymphocytes % (Manual) 2.0 L (20.5-60.0) % Monocytes % (Manual) 4.0 (1.7-12.0) % Eosinophils % (Manual) 1.0 (0.9-7.0) % Basophils % (Manual) 0.0 L (0.2-2.0) % Neutrophils # (Manual) 24.73 H (1.4-6.5) 10^3/uL Lymphocytes # (Manual) 0.53 L (1.20-3.80) 10^3/uL Monocytes # (Manual) 1.06 H (0.30-0.80) 10^3/uL Eosinophils # (Manual) 0.26 (0.00-0.70) 10^3/uL Basophils # (Manual) 0.00 (0.00-0.10) 10^3/uL PT 15.7 H (9.0-11.6) sec INR 1.55 Sodium (136-145) mmol/L Potassium (3.5-5.1) mmol/L Chloride (98-107) mmol/L Carbon Dioxide (21.0-32.0) mmol/L Anion Gap BUN (7.0-18.0) mg/dL Creatinine (0.55-1.02) mg/dL Est GFR ( Amer) (>=60 mL/min/1.73m^2) Est GFR (Non-Af Amer) (>=60 mL/min/1.73m^2) BUN/Creatinine Ratio Glucose (74-106) mg/dL Lactate 2.6 H* (0.4-2.0) mmol/L Calcium (8.5-10.1) mg/dL Total Bilirubin (0.2-1.0) mg/dL AST (15-37) U/L ALT (14-59) U/L Alkaline Phosphatase (46-116) U/L Troponin I High Sens (4.0-51.3) pg/mL C-Reactive Protein (<=0.50) mg/dL Total Protein (6.4-8.2) g/dL Albumin (3.4-5.0) g/dL Globulin g/dL Albumin/Globulin Ratio Urine Color Lt. yellow (YELLOW) Urine Clarity Sl cloudy (CLEAR) Urine pH 7.0 (5.0-9.0) Ur Specific [place] 1.010 (1.005-1.025) Urine Protein Trace (NEG/TRACE) mg/dL Urine Glucose (UA) 500 A (NEGATIVE) mg/dL Urine Ketones Negative (NEGATIVE) mg/dL Urine Occult Blood Trace-i (NEGATIVE) Urine Nitrite Negative (NEGATIVE) Urine Bilirubin Negative (NEGATIVE) Urine Urobilinogen 0.2 (0.2-1.0) EU/dL Ur Leukocyte Esterase Small A (NEGATIVE) Urine RBC 0-2 (0-2) #/HPF Urine WBC >100 A (NONE SEEN) #/HPF Ur Squamous Epith Cells Few A (NONE/RARE) #/LPF Urine Crystals None seen (None Seen) #/HPF Urine Bacteria Large A (NONE SEEN) #/HPF Urine Casts Seen A (NONE SEEN) #/LPF Hyaline Casts Rare Urine Mucus Small A (NONE SEEN) Ur Culture Indicated? Yes-[facility] [place] POC Glucose 140 H (74-106) mg/dL 09/07/24 09/07/24 Range/Units 20:34 22:37 WBC (4.0-11.0) 10^3/uL RBC (4.20-5.40) 10^6/uL Hgb (12.0-16.0) g/dL Hct (36.0-48.0) % MCV (81.0-99.0) fL MCH (26.7-34.0) pg MCHC (29.9-35.2) g/dL RDW (11.0-15.0) % Plt Count (150-450) 10^3/uL MPV (9.5-13.5) fL Seg Neuts % (Manual) (43.0-75.0) Lymphocytes % (Manual) (20.5-60.0) % Monocytes % (Manual) (1.7-12.0) % Eosinophils % (Manual) (0.9-7.0) % Basophils % (Manual) (0.2-2.0) % Neutrophils # (Manual) (1.4-6.5) 10^3/uL Lymphocytes # (Manual) (1.20-3.80) 10^3/uL Monocytes # (Manual) (0.30-0.80) 10^3/uL Eosinophils # (Manual) (0.00-0.70) 10^3/uL Basophils # (Manual) (0.00-0.10) 10^3/uL PT (9.0-11.6) sec INR Sodium 134 L (136-145) mmol/L Potassium 6.4 H* (3.5-5.1) mmol/L Chloride 97 L (98-107) mmol/L Carbon Dioxide 30.9 (21.0-32.0) mmol/L Anion Gap 12.5 BUN 28.0 H (7.0-18.0) mg/dL Creatinine 1.51 H (0.55-1.02) mg/dL Est GFR ( Amer) 40 L (>=60 mL/min/1.73m^2) Est GFR (Non-Af Amer) 33 L (>=60 mL/min/1.73m^2) BUN/Creatinine Ratio 18.5 Glucose 123 H (74-106) mg/dL Lactate 1.7 (0.4-2.0) mmol/L Calcium 10.2 H (8.5-10.1) mg/dL Total Bilirubin 0.6 (0.2-1.0) mg/dL AST 19 (15-37) U/L ALT 12 L (14-59) U/L Alkaline Phosphatase 74 (46-116) U/L Troponin I High Sens 18.2 (4.0-51.3) pg/mL C-Reactive Protein 16.30 H (<=0.50) mg/dL Total Protein 8.1 (6.4-8.2) g/dL Albumin 2.7 L (3.4-5.0) g/dL Globulin 5.4 g/dL Albumin/Globulin Ratio 0.5 Urine Color (YELLOW) Urine Clarity (CLEAR) Urine pH (5.0-9.0) Ur Specific [place] (1.005-1.025) Urine Protein (NEG/TRACE) mg/dL Urine Glucose (UA) (NEGATIVE) mg/dL Urine Ketones (NEGATIVE) mg/dL Urine Occult Blood (NEGATIVE) Urine Nitrite (NEGATIVE) Urine Bilirubin (NEGATIVE) Urine Urobilinogen (0.2-1.0) EU/dL Ur Leukocyte Esterase (NEGATIVE) Urine RBC (0-2) #/HPF Urine WBC (NONE SEEN) #/HPF Ur Squamous Epith Cells (NONE/RARE) #/LPF Urine Crystals (None Seen) #/HPF Urine Bacteria (NONE SEEN) #/HPF Urine Casts (NONE SEEN) #/LPF Hyaline Casts Urine Mucus (NONE SEEN) Ur Culture Indicated? POC Glucose (74-106) mg/dL Imaging Data Chest x-ray: Attestation: I have reviewed the pertinent imaging results. Radiologist's impression: ITS Impressions Brain CT 09/07/24 19:12 IMPRESSION: Remote infarcts are noted as There is no CT evidence of acute to subacute ischemia. If there is ongoing clinical concern, further evaluation with MRI may be helpful. 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 Impression dictated by: Pradeep Tellez M.D. 09/07/2024 7:46 PM Dictation Location: [facility] Electronically authenticated by: [id number] Y Date: 09/07/2024 19:46 Chest X-Ray 09/07/24 19:12 IMPRESSION: Basilar airspace opacities are noted left greater than right, worse when compared to the prior exam. There is a left-sided pleural effusion. Impression dictated by: Pradeep Tellez M.D. 09/07/2024 7:47 PM Dictation Location: [facility] Electronically authenticated by: [id number] Y Date: 09/07/2024 19:47 Head CTA 09/07/24 19:12 IMPRESSION: No evidence of aneurysmal dilatation, dissection or occlusion. Calcified plaque is noted in the carotid bifurcations with 75% narrowing of the proximal right internal carotid artery and 80% narrowing of the proximal left internal carotid artery. Calcified plaque is noted in the origins of the vertebral arteries contributing to severe stenosis bilaterally. Calcified plaque is noted in the proximal subclavian arteries bilaterally contributing to moderate stenosis bilaterally. Calcified plaques noted in the intracranial segments of the internal carotid arteries with mild to moderate multifocal narrowing greatest in the supraclinoid segments bilaterally. Bilateral airspace opacities are noted with a moderate to large left-sided pleural effusion. Impression dictated by: Pradeep Tellez M.D. 09/07/2024 10:02 PM Dictation Location: [facility] Electronically authenticated by: [id number] Y Date: 09/07/2024 22:02 Neck CTA 09/07/24 19:12 IMPRESSION: No evidence of aneurysmal dilatation, dissection or occlusion. Calcified plaque is noted in the carotid bifurcations with 75% narrowing of the proximal right internal carotid artery and 80% narrowing of the proximal left internal carotid artery. Calcified plaque is noted in the origins of the vertebral arteries contributing to severe stenosis bilaterally. Calcified plaque is noted in the proximal subclavian arteries bilaterally contributing to moderate stenosis bilaterally. Calcified plaques noted in the intracranial segments of the internal carotid arteries with mild to moderate multifocal narrowing greatest in the supraclinoid segments bilaterally. Bilateral airspace opacities are noted with a moderate to large left-sided pleural effusion. Impression dictated by: Pradeep Tellez M.D. 09/07/2024 10:02 PM Dictation Location: [facility] Electronically authenticated by: [id number] Y Date: 09/07/2024 22:02 ECG Data Attestation: ?I have reviewed the pertinent ECG results. Discharge Plan Discharge Chief Complaint: Altered Mental Status Clinical Impression: Acute metabolic encephalopathy, Acute UTI, Sepsis, Cellulitis of left lower leg, Bilateral pneumonia Patient Disposition: Admitted As Inpatient Time of Disposition Decision: 23:49 Condition: Fair Discharge Date/Time: 09/08/24 00:10
[2024-09-08] VITALS (26 sets, daily range): BP systolic 126–149; BP diastolic 37–84; PULSE 64–71; TEMP 36.4–37.3; O2SAT 90–99; BMI 32.1
--- OUTSIDE RECORDS SUMMARY | 2024-09-08 00:20 | XMS_ITS | CCD ---
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 ANISOCYTOSIS PRESENT Normal [facility] Comment on above: Performed By: #### U MARTÍN, UAX #### [facility] [address] [place] [address] [employer]: Giovany Patel MD WBC (Bld) [#/Vol] 10.9 10*3/uL Normal 3.5-11.3 [facility] Comment on above: Performed By: #### U CORINNEO, UAX #### [facility] [address] [place] [address] [employer]: Giovany Patel MD Cardiac echo study Procedure [...] [facility] AV VTI 30.7 cm [facility] E/E' Lateral 14.71 [facility] E/E' Ratio (Averaged) 13.79 [facility] E/E' Septal 12.88 [facility] EF 3D 56 % [facility] Interpretation and review of laboratory results Abnormal [facility] IVC Proxmal 1.5 cm [facility] IVSd 1.5 cm Abnormal 0.6 - 0.9 cm [facility] LA Area 2C 18.6 cm2 [facility] LA Area 4C 22.3 cm2 [facility] LA Major [place] 6.1 cm [facility] LA Minor [place] 5.7 cm [facility] LA Volume BP 57 mL Abnormal 22 - 52 mL [facility] LA Volume MOD A2C 50 mL 22 - 52 mL [facility] LA Volume MOD A4C 64 mL Abnormal 22 - 52 mL [facility] goAct LV E' Lateral Velocity 7 cm/s [facility] LV E' Septal Velocity 8 cm/s [facility] LV EDV 3D 114 mL [facility] LV ESV 3D 50 mL [facility] LV Mass 2D 160.1 g 67 - 162 g [facility] LV Mass 3D 163.0 g [facility] LV RWT Ratio 0.61 [facility] LVIDd 3.6 cm Abnormal 3.9 - 5.3 cm [facility] LVOT Mean Gradient 2 mmHg [facility] goAct LVOT Peak Gradient 4 mmHg [facility] LVOT Peak Velocity 1.0 m/s [facility] LVOT VTI 15.3 cm [facility] LVOT:AV VTI Index 0.50 [facility] goAct LVPWd 1.1 cm Abnormal 0.6 - 0.9 cm [facility] MV E Velocity 1.03 m/s [facility] MV E Wave Deceleration Time 164.0 ms [facility] MV Max Velocity 1.3 m/s [facility] [employer] goAct MV Mean Gradient 2 mmHg [facility] goAct MV Mean Velocity 0.7 m/s [facility] [employer] MV Peak Gradient 6 mmHg [facility] MV VTI 26.8 cm KARLO AGUIAR [employer] MV:LVOT VTI Index 1.75 [facility] [employer] PV Max Velocity 1.4 m/s KARLO YIPOU RS [employer] PV Peak Gradient 8 mmHg [facility] RV Basal Dimension 3.7 cm [facility] [place] Peak S' 12 cm/s KARLO AGUIAR [employer] TAPSE 2.1 cm 1.7 cm KARLO AGUIAR [employer] Left Ventricle: Normal left ventricular systolic function. [...] Doppler was performed. No contrast was given. [facility] CV [facility]ACS [facility] [employer] Glucose,Whole Bloodon 2023 Glucose [Mass/Vol] 284 mg/dL High 65-105 [facility] Glucose [Mass/Vol] 215 mg/dL High 65-105 [facility] Glucose [Mass/Vol] 202 mg/dL High 65-105 [facility] Glucose [Mass/Vol] 176 mg/dL High 65-105 [facility] POC Glucose Fingerstickon Glucose [Mass/Vol] 284 mg/dL High 65 - 105 mg/dL [facility] Interpretation and review of laboratory results Abnormal [facility] Glucose [Mass/Vol] 215 mg/dL High 65 - 105 mg/dL [facility] Interpretation and review of laboratory results Abnormal [facility] Glucose [Mass/Vol] 202 mg/dL High 65 - 105 mg/dL [facility] Interpretation and review of laboratory results Abnormal [facility] Glucose [Mass/Vol] 176 mg/dL High 65 - 105 mg/dL [facility] Interpretation and review of laboratory results Abnormal [facility] XR TOE LEFT (MIN 2 VIEWS)on 09-08-2023 [...] Zenon Light MD 09/08/23 Final result Normal [facility] XR Toes - left 2 Viewson Mildly impacted fracture of the distal 1st proximal phalanx. [facility] RIS CONSOLIDATED EXAMINATION: 3 XRAY VIEWS OF [...] bones are markedly osteopenic. Prominent vascular calcification. [facility] RIS CONSOLIDATED Zenon Light MD - 09/08/2023 [...] fracture of the distal 1st proximal phalanx. [facility] Radiology Study observation (narrative) [facility] Basic Metab w/rfx MGon 09-06 Anion gap [Moles/Vol] 10 mmol/L Normal 9-16 [facility] Comment on above: Performed By: #### F YENY RAMOS, BNP #### [employer] [address] [place] [phone] [employer]: Giovany Patel MD Calcium [Mass/Vol] 10.2 mg/dL Normal 8.6-10.4 [facility] Comment on above: Performed By: #### F YENY RAMOS, BNP #### [facility] [address] [place] [address] [employer]: Giovany Patel MD Chloride [Moles/Vol] 98 mmol/L Normal 98-107 [facility] Comment on above: Performed By: #### F YENY RAMOS, BNP #### [facility] [address] [place] [address] [employer]: Giovany Patel MD CO2 [Moles/Vol] 34 mmol/L High 20-31 [facility] Comment on above: Performed By: #### F YENY RAMOS, BNP #### [facility] [place] [address] [employer]: Giovany Patel MD Creatinine [Mass/Vol] 0.6 mg/dL Normal 0.50-0.90 [facility] Comment on above: Performed By: #### F YENY RAMOS, BNP #### [facility] [address] [place] [address] [employer]: Giovany Patel MD GFR/1.73 sq M.predicted among non-blacks MDRD (S/P/Bld) [Vol rate/Area] mL/min/{1.73_m2} Normal >60 [facility] Comment on above: Result Comment: These results [...] By: #### F YENY RAMOS, BNP #### [employer] [address] [place] [address] [employer]: Giovany Patel MD Glucose [Mass/Vol] 146 mg/dL High 74-99 [facility] Comment on above: Performed By: #### F YENY RAMOS, BNP #### [facility] [address] [place] [address] [employer]: Giovany Patel MD Potassium [Moles/Vol] 4.3 mmol/L Normal 3.7-5.3 [facility] Comment on above: Performed By: #### F YENY RAMOS, BNP #### [employer] [address] [place] [address] [employer]: Giovany Patel MD Sodium [Moles/Vol] 142 mmol/L Normal 136-145 [facility] Comment on above: Performed By: #### F YENY RAMOS, BNP #### [facility] [address] [place], [place] [id number] [employer]: Giovany Patel MD Urea nitrogen [Mass/Vol] 16 mg/dL Normal 8-23 [facility] Comment on above: Performed By: #### F YENY RAMOS, BNP #### [facility] [address] [place] [address] [employer]: Giovany Patel MD Basic Metabolic Panel w/ Ref ny to MGon 09-07-2023 Anion gap [Moles/Vol] 10 mmol/L 9 - 16 mmol/L [facility] Calcium [Mass/Vol] 10.2 mg/dL 8.6 - 10. 4 mg/dL [facility] [employer] Chloride [Moles/Vol] 98 mmol/L 98 - 107 mmol/L [facility] CO2 [Moles/Vol] 34 mmol/L High 20 - 31 mmol/L [facility] [employer] Creatinine [Mass/Vol] 0.6 mg/dL 0.50 - 0.90 mg/dL [facility] Est, Neftali Lakhani Rate - [facility] Comment on above: These results are [...] 146 mg/dL High 74 - 99 mg/dL [facility] Interpretation and review of laboratory results Abnormal [facility] Potassium [Moles/Vol] 4.3 mmol/L 3.7 - 5.3 mmol/L [facility] Sodium [Moles/Vol] 142 mmol/L 136 - 145 mmol/L [facility] [employer] Urea nitrogen [Mass/Vol] 16 mg/dL 8 - 23 mg/dL [facility] CBC with Auto Differentialon 09-07-2023 Basophils (Bld) [#/Vol] [facility] Basophils/100 WBC (Bld) 0 % 0 - 2 % [facility] Eosinophils (Bld) [#/Vol] 0.20 10*3/uL [facility] Eosinophils/100 WBC (Bld) 2 % 1 - 4 % [facility] Erythrocyte distribution width (RBC) [Ratio] 17.7 % High 11.8 - 14.4 % [facility] Hematocrit (Bld) [Volume fraction] 29.8 % Low 36.3 - 47.1 % [facility] Hemoglobin (Bld) [Mass/Vol] 8.8 g/dL Low 11.9 - 15.1 g/dL [facility] Immature granulocytes (Bld) [#/Vol] 0.12 10*3/uL [facility] Immature granulocytes/100 WBC (Bld) 1 % High 0 [facility] Interpretation and review of laboratory results Abnormal [facility] Lymphocytes/100 WBC (Bld) 11 % Low 24 - 43 % [facility] Lymphocytes/100 WBC (Bld) 1.23 % [facility] MCH (RBC) [Entitic mass] 29.3 pg 25.2 - 33.5 pg [facility] MCHC (RBC) [Mass/Vol] 29.5 g/dL 28.4 - 34.8 g/dL [facility] MCV (RBC) [Entitic vol] 99.3 fL 82.6 - 102.9 fL [facility] Monocytes/100 WBC (Bld) 7 % 3 - 12 % [facility] Monocytes/100 WBC (Bld) 0.74 % [facility] Neutrophils/100 WBC (Bld) 79 % High 36 - 65 % [facility] Nucleated RBC/100 WBC (Bld) [Ratio] 0.0 % 0.0 per 100 WBC [facility] Platelet mean volume (Bld) [Entitic vol] 8.9 fL 8.1 - 13.5 fL [facility] Platelets (Bld) [#/Vol] 333 10*3/uL [facility] RBC (Bld) [#/Vol] 3.00 10*6/uL Low 3.95 - 5.1 1 m/uL [facility] RBC (Bld) [#/Vol] ANISOCYTOSIS PRESENT [facility] Segmented neutrophils/100 WBC (Bld) 8.44 % High [facility] WBC other (Bld) [#/Vol] 10.8 [facility] CBC with Diffon 09-07-2023 Abs. Basophil <0.03 Normal 0.00-0.20 [facility] Comment on above: Performed By: #### F YENY RAMOS, BNP #### [employer] [address] [place] [address] [employer]: Giovany Patel MD Abs.Imm.Granulocyte 0.12 k/uL Normal 0.00-0.30 [facility] Comment on above: Performed By: #### YENY KNOX, BNP #### [facility] [address] [place] [address] [employer]: Giovany Patel MD Abs.Neutrophil (Seg) 8.44 k/uL High 1.50-8.10 [facility] Comment on above: Performed By: #### YENY KNOX, BNP #### [facility] [address] [place] [address] [employer]: Giovany Patel MD Basophils/100 WBC (Bld) 0 % Normal 0-2 [facility] Comment on above: Performed By: #### F YENY RAMOS, BNP #### [facility] [address] [place] [address] [employer]: Giovany Patel MD Eosinophils (Bld) [#/Vol] 0.20 10*3/uL Normal 0.00-0.44 [facility] Comment on above: Performed By: #### F YENY RAMOS, BNP #### [facility] [address] [place] [address] [employer]: Giovany Patel MD Eosinophils/100 WBC (Bld) 2 % Normal 1-4 [facility] Comment on above: Performed By: #### F YENY RAMOS, BNP #### [facility] [address] [place] [address] [employer]: Giovany Patel MD Erythrocyte distribution width (RBC) [Ratio] 17.7 % High 11.8-14.4 [facility] Comment on above: Performed By: #### F YENY RAMOS, BNP #### [facility] [address] [place] [address] [employer]: Giovany Patel MD Hematocrit (Bld) [Volume fraction] 29.8 % Low 36.3-47.1 [facility] Comment on above: Performed By: #### F YENY RAMOS, BNP #### [facility] [address] [place] [address] [employer]: Giovany Patel MD Hemoglobin (Bld) [Mass/Vol] 8.8 g/dL Low 11.9-15.1 [facility] Comment on above: Performed By: #### F YENY RAMOS, BNP #### [facility] [address] [place] [address] [employer]: Giovany Patel MD Immature granulocytes/100 WBC (Bld) 1 % High 0 [facility] Comment on above: Performed By: #### F RICHARDVIPUL LozaBC, BNP #### [facility] [address] [place] [address] [employer]: Giovany Patel MD Lymphocytes (Bld) [#/Vol] 1.23 10*3/uL Normal 1.10-3.70 [facility] Comment on above: Performed By: #### F VIPUL RAMOSBC, BNP #### [facility] [address] [place] [address] [employer]: Giovany Patel MD Lymphocytes/100 WBC (Bld) 11 % Low 24-43 [facility] Comment on above: Performed By: #### F RICHARD, FEBC, BNP #### [address] [address] [employer]: Giovany Patel MD MCH (RBC) [Entitic mass] 29.3 pg Normal 25.2-33.5 [facility] Comment on above: Performed By: #### F RICHARDYENY Loza, BNP #### [address] [address] [employer]: Giovany Patel MD MCHC (RBC) [Mass/Vol] 29.5 g/dL Normal 28.4-34.8 [facility] Comment on above: Performed By: #### F RICHARD, FEBC, BNP #### [address] [address] [employer]: Giovany Patel MD MCV (RBC) [Entitic vol] 99.3 fL Normal 82.6-102.9 [facility] Comment on above: Performed By: #### F RICHARDVIPUL LozaBC, BNP #### [address] [address] [employer]: Giovany Patel MD Monocytes (Bld) [#/Vol] 0.74 10*3/uL Normal 0.10-1.20 [facility] Comment on above: Performed By: #### F RICHARDVIPUL LozaBC, BNP #### [address] [address] [employer]: Giovany Patel MD Monocytes/100 WBC (Bld) 7 % Normal 3-12 [facility] Comment on above: Performed By: #### F RICHARD, FEBC, BNP #### [address] [address] [employer]: Giovany Patel MD Neutrophil (Seg) 79 % High 36-65 [facility] Comment on above: Performed By: #### F VIPUL RAMOSBC, BNP #### [address] [address] [employer]: Giovany Patel MD NRBC Automated 0.0 per 100 WBC Normal 0.0 [facility] Comment on above: Performed By: #### F YENY RAMOS, BNP #### [address] [address] [employer]: Giovany Patel MD Platelet mean volume (Bld) [Entitic vol] 8.9 fL Normal 8.1-13.5 [facility] Comment on above: Performed By: #### F YENY RAMOS, BNP #### [address] [address] [employer]: Giovany Patel MD Platelets (Bld) [#/Vol] 333 10*3/uL Normal 138-453 [facility] Comment on above: Performed By: #### F YENY RAMOS, BNP #### [address] [address] [employer]: Giovany Patel MD RBC (Bld) [#/Vol] 3.00 10*6/uL Low 3.95-5.11 [facility] Comment on above: Performed By: #### F YENY RAMOS, BNP #### [address] [address] [employer]: Giovany Patel MD RBC morphology finding Nom (Bld) ANISOCYTOSIS PRESENT Normal [facility] Comment on above: Performed By: #### F YENY RAMOS, BNP #### [address] [address] [employer]: Giovany Patel MD WBC (Bld) [#/Vol] 10.8 10*3/uL Normal 3.5-11.3 [facility] Comment on above: Performed By: #### F RICHARD, FEBC, BNP #### [facility] [address] [place] [address] [employer]: Givoany Patel MD Cardiac echo study Procedure on 09-07-2023 Radiology Study observation (narrative) [employer] EKG 12 Lead (Abn HR)Ordered By: Josh Lorenzo on 09-07-2023 Atrial Rate 65 BPM [employer] Work Phone: Q-T Interval 308 ms [employer] Work Phone: QRS Duration 82 ms [employer] Phone: QTc Calculation (Bazett) 317 ms [employer] Work Phone: R [place] -7 degrees [employer] Work Phone: T [place] -150 degrees [employer] Work Phone: Ventricular Rate 64 BPM [email or web address] Work Phone: [employer] Work Phone: EKG 12 Lead (Abn HR)on 09-[address] and T wave abnormality Abnormal ECG When compared with ECG of 28-APR-2001 05:14, Current undetermined rhythm precludes rhythm comparison, needs review ST now depressed in Anterior leads Nonspecific T wave abnormality now evident in Inferior leads Nonspecific T wave abnormality, worse in Anterolateral leads QT has shortened [facility] STV Josh Valdivia MD - 09/07/2023 Undetermined rhythm Nonspecific ST and T wave abnormality Abnormal ECG When compared with ECG of 28-APR-2001 05:14, Current undetermined rhythm precludes rhythm comparison, needs review ST now depressed in Anterior leads Nonspecific T wave abnormality now evident in Inferior leads Nonspecific T wave abnormality, worse in Anterolateral leads QT has shortened [employer] Glucose,Whole Bloodon 2023 Glucose [Mass/Vol] 280 mg/dL High 65-105 [facility] Glucose [Mass/Vol] 199 mg/dL High 65-105 [facility] Glucose [Mass/Vol] 173 mg/dL High 65-105 [facility] Glucose [Mass/Vol] 141 mg/dL High 65-105 [facility] Microscopic Urinalysison Bacteria LM Ql (Urine sed) None None [facility] Casts LM.LPF (Urine sed) [#/Area] 0 TO 2 HYALINE Reference range defined for non-centrifuged specimen. [facility] Epithelial cells LM.HPF (Urine sed) [#/Area] None [facility] RBC LM.HPF (Urine sed) [#/Area] None [facility] Comment on above: Reference range defi barrington for non-centrifuged specimen. WBC LM.HPF (Urine sed) [#/Area] 2 TO 5 [facility] POC Glucose Fingerstickon Glucose [Mass/Vol] 280 mg/dL High 65 - 105 mg/dL [facility] Interpretation and review of laboratory results Abnormal [facility] Glucose [Mass/Vol] 199 mg/dL High 65 - 105 mg/dL [facility] Interpretation and review of laboratory results Abnormal [facility] Glucose [Mass/Vol] 173 mg/dL High 65 - 105 mg/dL [facility] Interpretation and review of laboratory results Abnormal [facility] Glucose [Mass/Vol] 141 mg/dL High 65 - 105 mg/dL [facility] Interpretation and review of laboratory results Abnormal [facility] UA w/Reflex Cultureon 2023 Bilirubin, SemiQt,Ur Negative Normal NEG [facility] Comment on above: Performed By: #### U MICAMert, UAX #### [facility] [address] [place] [phone] [employer]: Giovany Patel MD Blood, Urine Negative Normal NEG [facility] Comment on above: Performed By: #### U MICAO, UAX #### [address] [address] [employer]: Giovany Patel MD Clarity (U) Clear Normal CLEAR [facility] Comment on above: Performed By: #### U MICAO, UAX #### [facility] [address] [place] [phone] [employer]: Giovany Patel MD Color (U) Yellow Normal YEL [facility] Comment on above: Performed By: #### U MICAO, UAX #### [facility] [address] [place] [address] [employer]: Giovany Patel MD Glucose Ql (U) Negative Normal NEG [facility] Comment on above: Performed By: #### U MICAO, UAX #### [address] [address] [employer]: Giovany Patel MD Ketones Ql (U) Negative Normal NEG [facility] Comment on above: Performed By: #### U MICAO, UAX #### [address] [address] [employer]: Giovany Patel MD Leukocyte esterase Test strip Ql (U) SMALL Abnormal NEG [facility] Comment on above: Performed By: #### U MICAO, UAX #### [address] [address] [employer]: Giovany Patel MD Nitrite,Ur Negative Normal NEG [facility] Comment on above: Performed By: #### U MICAO, UAX #### [address] [address] [employer]: Giovany Patel MD PH,Ur 5.0 Normal 5.0-8.0 [facility] Comment on above: Performed By: #### U CORINNEO, UAX #### [facility] [place] [address] [employer]: Giovany Patel MD Protein Ql (U) Negative Normal NEG [facility] Comment on above: Performed By: #### U CORINNEO, UAX #### [facility] [place], [place] [phone] [employer]: Giovany Patel MD Spec. Rousseau,Ur 1.016 Normal 1.005-1.030 [facility] Comment on above: Performed By: #### U MARTÍN, UAX #### [facility] [address] [place] [address] [phone] [employer]: Giovany Patel MD Urobilinogen,Ur Normal Normal 0.0-1.0 [facility] Comment on above: Performed By: #### U CORINNEO, UAX #### [facility] [address] [place] [address] [phone] [employer]: Giovany Patel MD Urinalysis with Reflex to Cu ltureon 09-07-2023 Bilirubin Ql (U) Negative NEGATIVE TPI Composites [facility] ClearSlide Clarity (U) Clear Clear [facility] Color (U) Yellow Yellow TPI Composites [facility] goAct Glucose Test strip (U) [Mass/Vol] Negative NEGATIVE mg/dL TPI Composites [facility] Hemoglobin Auto test strip Ql (U) Negative NEGATIVE TPI Composites [facility] Interpretation and review of laboratory results Abnormal [facility]ash[facility] Ketones (U) [Mass/Vol] Negative NEGATIVE mg/dL TPI Composites [facility] Leukocyte esterase Test strip Ql (U) SMALL Abnormal NEGATIVE TPI Composites SECCash[facility] Nitrite Ql (U) Negative NEGATIVE [facility] pH (U) 5.0 [pH] 5.0 - 8.0 [facility] SECCash[facility] Protein (U) [Mass/Vol] Negative NEGATIVE mg/dL TPI Composites [facility] Specific gravity (U) [Rel density] 1.016 1.005 - 1.030 [facility] Urobilinogen Qn (U) Normal 0.0 - 1. 0 EU/dL [facility] Urinalysis,Microon 4 Bacteria None Normal NONE [facility] Comment on above: Performed By: #### U CORINNEO, UAX #### [facility] [address] [place] [phone] [employer]: Giovany Patel MD Casts 0 TO 2 HYALINE Normal 0-8 [facility] Comment on above: Result Comment: Refe rence range defined for non-centrifuged specimen. Performed By: #### U CORINNEO, UAX #### [facility] [address] [place] [phone] [employer]: Giovany Patel MD Epithelial cells LM Ql (Urine sed) None Normal 0-5 [facility] Comment on above: Performed By: #### U CORINNEO, UAX #### [facility] [address] [place] [phone] [employer]: Giovany Patel MD Urine RBC's None Normal 0-4 [facility] Comment on above: Result Comment: Refe rence range defined for non-centrifuged specimen. Performed By: #### U CORINNEO, UAX #### [facility] [address] [place] [phone] [employer]: Giovany Patel MD Urine WBC's 2 TO 5 Normal 0-5 [facility] Comment on above: Performed By: #### U MICAO, UAX #### [facility] [address] [place] [address] [employer]: Giovany Patel MD BMPon 09-06-2023 Anion gap [Moles/Vol] 10 mmol/L 9 - 16 mmol/L [facility] goAct Calcium [Mass/Vol] 9.8 mg/dL 8.6 - 10. 4 mg/dL [facility] Chloride [Moles/Vol] 96 mmol/L Low 98 - 107 mmol/L [facility] CO2 [Moles/Vol] 34 mmol/L High 20 - 31 mmol/L [facility] Creatinine [Mass/Vol] 0.6 mg/dL 0.50 - 0.90 mg/dL [facility] EstNeftali Rate - [facility] Comment on above: These results are [...] 119 mg/dL High 74 - 99 mg/dL [facility] Interpretation and review of laboratory results Abnormal [facility] Potassium [Moles/Vol] 5.2 mmol/L 3.7 - 5.3 mmol/L [facility] Sodium [Moles/Vol] 140 mmol/L 136 - 145 mmol/L [facility] Urea nitrogen [Mass/Vol] 21 mg/dL 8 - 23 mg/dL [facility] Basic Metabolic Panelon - Anion gap [Moles/Vol] 8 mmol/L Low 9 - 16 mmol/L [facility] Calcium [Mass/Vol] 9.1 mg/dL 8.6 - 10. 4 mg/dL [facility] Chloride [Moles/Vol] 96 mmol/L Low 98 - 107 mmol/L [facility] CO2 [Moles/Vol] 35 mmol/L High 20 - 31 mmol/L [facility] Creatinine [Mass/Vol] 0.5 mg/dL 0.50 - 0.90 mg/dL [facility] Est, Neftali Amayarojas Rate - [facility] Comment on above: These results are [...] 123 mg/dL High 74 - 99 mg/dL [facility] Interpretation and review of laboratory results Abnormal [facility] Potassium [Moles/Vol] 4.4 mmol/L 3.7 - 5.3 mmol/L [facility] Sodium [Moles/Vol] 139 mmol/L 136 - 145 mmol/L [facility] Urea nitrogen [Mass/Vol] 18 mg/dL 8 - 23 mg/dL [facility] Basic Metabolic Profon 09-05 Anion gap [Moles/Vol] 8 mmol/L Low 9-16 [facility] Comment on above: Performed By: #### U MARTÍN UAX #### [facility] [address] [place] [address] [phone] [employer]: Giovany Patel MD Calcium [Mass/Vol] 9.1 mg/dL Normal 8.6-10.4 [facility] Comment on above: Performed By: #### U MARTÍN UAX #### [facility] [address] [place] [phone] [employer]: Giovany Patel MD Chloride [Moles/Vol] 96 mmol/L Low 98-107 [facility] Comment on above: Performed By: #### U MARTÍN UAX #### [facility] [address] [place] [address] [employer]: Giovany Patel MD CO2 [Moles/Vol] 35 mmol/L High 20-31 [facility] Comment on above: Performed By: #### U CORINNEO, UAX #### [facility] [address] [place] [phone] [employer]: Giovany Patel MD Creatinine [Mass/Vol] 0.5 mg/dL Normal 0.50-0.90 [facility] Comment on above: Performed By: #### U MARTÍN UAX #### [address] [address] [employer]: Giovany Patel MD GFR/1.73 sq M.predicted among non-blacks MDRD (S/P/Bld) [Vol rate/Area] mL/min/{1.73_m2} Normal >60 [facility] Comment on above: Result Comment: These results [...] Performed By: #### Michelle RESENDIZ UAX #### [address] [address] [employer]: Giovany Patel MD Glucose [Mass/Vol] 123 mg/dL High 74-99 [facility] Comment on above: Performed By: #### Michelle RESENDIZ UAX #### [address] [address] [employer]: Giovany Patel MD Potassium [Moles/Vol] 4.4 mmol/L Normal 3.7-5.3 [facility] Comment on above: Performed By: #### U MARTÍN UAX #### [facility] [address] [place] [phone] [employer]: Giovany Patel MD Sodium [Moles/Vol] 139 mmol/L Normal 136-145 [facility] Comment on above: Performed By: #### U MARTÍN, UAX #### [facility] [address] [place] [address] [employer]: Giovany Patel MD Urea nitrogen [Mass/Vol] 18 mg/dL Normal 8-23 [facility] Comment on above: Performed By: #### U MICAO, UAX #### [address] [address] [employer]: Giovany Patel MD Anion gap [Moles/Vol] 10 mmol/L Normal 9-16 [facility] Comment on above: Performed By: #### B MP, TROPI #### [facility] [address] [place] [address] [employer]: Giovany Patel MD Calcium [Mass/Vol] 9.8 mg/dL Normal 8.6-10.4 [facility] Comment on above: Performed By: #### B MP, TROPI #### [facility] [address] [place] [address] [employer]: Giovany Patel MD Chloride [Moles/Vol] 96 mmol/L Low 98-107 [facility] Comment on above: Performed By: #### B MP, TROPI #### [facility] [address] [place] [address] [employer]: Giovany Patel MD CO2 [Moles/Vol] 34 mmol/L High 20-31 [facility] Comment on above: Performed By: #### B MP, TROPI #### [facility] [address] [place] [phone] [employer]: Giovany Patel MD Creatinine [Mass/Vol] 0.6 mg/dL Normal 0.50-0.90 [facility] Comment on above: Performed By: #### B MP, TROPI #### [facility] [address] [place] [phone] [employer]: Giovany Patel MD GFR/1.73 sq M.predicted among non-blacks MDRD (S/P/Bld) [Vol rate/Area] mL/min/{1.73_m2} Normal >60 [facility] Comment on above: Result Comment: These results [...] Performed By: #### B PONCHO, TROPI #### [facility] [address] [place] [address] [employer]: Giovany Patel MD Glucose [Mass/Vol] 119 mg/dL High 74-99 [facility] Comment on above: Performed By: #### B PONCHO, TROPI #### [facility] [address] [place] [address] [employer]: Giovany Patel MD Potassium [Moles/Vol] 5.2 mmol/L Normal 3.7-5.3 [facility] Comment on above: Performed By: #### B PONHCO, TROPI #### [facility] [address] [place] [address] [employer]: Giovany Patel MD Sodium [Moles/Vol] 140 mmol/L Normal 136-145 [facility] Comment on above: Performed By: #### B PONCHO, TROPI #### [facility] [address] [place] [address] [employer]: Giovany Patel MD Urea nitrogen [Mass/Vol] 21 mg/dL Normal 8-23 [facility] Comment on above: Performed By: #### B PONCHO, TROPI #### [facility] [address] [place] [address] [employer]: Giovany Patel MD Brain Natri. Peptideon 09-05 Natriuretic peptide B (Bld) [Mass/Vol] 2721 pg/mL High 0-300 [facility] Comment on above: Result Comment: An a ge-independent cutoff point of 300 pg/ml has a 98% negative predictive value excluding acute heart failure. Performed By: #### F RICHARD, FEBC, BNP #### [facility] [address] [place] [address] [employer]: Giovany Patel MD Brain Natriuretic Peptideon 09-06-2023 Natriuretic peptide B (Bld) [Mass/Vol] 2721 pg/mL High 0 - 300 pg/mL [facility] Comment on above: An age-independent c utoff point of 300 pg/ml has a 98% negative predictive value excluding acute heart failure. CBCon 09-06-2023 Erythrocyte distribution width (RBC) [Ratio] 17.7 % High 11.8 - 14.4 % [facility] Hematocrit (Bld) [Volume fraction] 27.7 % Low 36.3 - 47.1 % [facility] Hemoglobin (Bld) [Mass/Vol] 8.3 g/dL Low 11.9 - 15.1 g/dL [facility] Interpretation and review of laboratory results Abnormal [facility] MCH (RBC) [Entitic mass] 29.9 pg 25.2 - 33.5 pg [facility] MCHC (RBC) [Mass/Vol] 30.0 g/dL 28.4 - 34.8 g/dL [facility] MCV (RBC) [Entitic vol] 99.6 fL 82.6 - 102.9 fL [facility] Nucleated RBC/100 WBC (Bld) [Ratio] 0.0 % 0.0 per 100 WBC [facility] Platelet mean volume (Bld) [Entitic vol] 8.9 fL 8.1 - 13.5 fL [facility] Platelets (Bld) [#/Vol] 341 10*3/uL [facility] RBC (Bld) [#/Vol] 2.78 10*6/uL Low 3.95 - 5.1 1 m/uL [facility] WBC other (Bld) [#/Vol] 12.6 High [facility] Erythrocyte distribution width (RBC) [Ratio] 17.7 % High 11.8-14.4 [facility] Comment on above: Performed By: #### C BC #### [address] [address] [employer]: Giovany Patel MD Hematocrit (Bld) [Volume fraction] 27.7 % Low 36.3-47.1 [facility] Comment on above: Performed By: #### C BC #### [address] [address] [employer]: Giovany Patel MD Hemoglobin (Bld) [Mass/Vol] 8.3 g/dL Low 11.9-15.1 [facility] Comment on above: Performed By: #### C BC #### [address] [address] [employer]: Giovany Patel MD MCH (RBC) [Entitic mass] 29.9 pg Normal 25.2-33.5 [facility] Comment on above: Performed By: #### C BC #### [address] [address] [employer]: Giovany Patel MD MCHC (RBC) [Mass/Vol] 30.0 g/dL Normal 28.4-34.8 [facility] Comment on above: Performed By: #### C BC #### [address] [address] [employer]: Giovany Patel MD MCV (RBC) [Entitic vol] 99.6 fL Normal 82.6-102.9 [facility] Comment on above: Performed By: #### C BC #### [address] [address] [employer]: Giovany Patel MD NRBC Automated 0.0 per 100 WBC Normal 0.0 [facility] Comment on above: Performed By: #### C BC #### [address] [address] [employer]: Giovany Patel MD Platelet mean volume (Bld) [Entitic vol] 8.9 fL Normal 8.1-13.5 [facility] Comment on above: Performed By: #### C BC #### [address] [address] [employer]: Giovany Patel MD Platelets (Bld) [#/Vol] 341 10*3/uL Normal 138-453 [facility] Comment on above: Performed By: #### C BC #### [address] [address] [employer]: Giovany Patel MD RBC (Bld) [#/Vol] 2.78 10*6/uL Low 3.95-5.11 [facility] Comment on above: Performed By: #### C BC #### [address] [address] [employer]: Giovany Patel MD WBC (Bld) [#/Vol] 12.6 10*3/uL High 3.5-11.3 [facility] Comment on above: Performed By: #### C BC #### [address] [address] [employer]: Giovany Patel MD Ferritinon 09-06-2023 Ferritin [Mass/Vol] 380 ng/mL High 13 - 150 ng/mL [facility] Comment on above: No reference range e stablished for this age/gender. Ferritin [Mass/Vol] 380 ng/mL High 13-150 [facility] Comment on above: Result Comment: No r eference range established for this age/gender. Performed By: #### F RICHARD, FEBC, BNP #### [address] [address] [employer]: Giovany Patel MD Glucose,Whole Bloodon 2023 Glucose [Mass/Vol] 112 mg/dL High 65-105 [facility] Iron Binding Cap.on 09-06-19 24 % Fe Saturation 11 % Low 20-55 [facility] Comment on above: Performed By: #### F RICHARD, FEBC, BNP #### [facility] [address] [place] [address] [employer]: Giovany Patel MD Iron [Mass/Vol] 24 ug/dL Low 37-145 [facility] Comment on above: Performed By: #### F RICHARD, FEBC, BNP #### [facility] [address] [place], [place] [phone] [employer]: Giovany Patel MD Total Fe Binding Cap 209 ug/dL Low 250-450 [facility] Comment on above: Performed By: #### F RICHARD, FEBC, BNP #### [facility] [place], [place] [phone] [employer]: Giovany Patel MD Unbound Fe Bind Cap 185 ug/dL Normal 112-347 [facility] Comment on above: Performed By: #### F RICHARD, FEBC, BNP #### [facility] [address] [place] [address] [phone] [employer]: Giovany Patel MD Iron and TIBCon 09-06-2023 Iron [Mass/Vol] 24 ug/dL Low 37 - 145 ug/dL [facility] goAct Iron binding capacity [Mass/Vol] 209 ug/dL Low 250 - 450 ug/dL [facility] goAct Iron saturation [Mass fraction] 11 % Low 20 - 55 % [facility] goAct UIBC 185 ug/dL 112 - 347 ug/dL [facility] goAct No Panel Informationon 09-05 [facility] goAct Interpretation and review of laboratory results Abnormal [facility] LIMACom[facility] POC Glucose Fingerstickon Glucose [Mass/Vol] 112 mg/dL High 65 - 105 mg/dL [facility] goAct Interpretation and review of laboratory results Abnormal [facility] Portable XR Chest AP single viewon 09-06-2023 Multifocal opacification, possibly multifocal pneumonia, ARDS or edema. Left-sided volume loss with possible effusion. [facility] EXAMINATION: ONE XRAY VIEW OF [...] the left with possible effusion. No pneumothorax. [facility] Zenon Light MD - 09/06/2023 [...] edema. Left-sided volume loss with possible effusion. [facility] Radiology Study observation (narrative) [facility] Portable XR Chest AP single viewOrdered By: Zenon Light on 09-06-2023 [facility] Work Phone: Procalcitoninon 09-06-2023 Procalcitonin [Mass/Vol] 0.08 ng/mL 0.00 - 0.09 ng/mL [facility] Comment on above: Suspected Sepsis: <0.50 ng/mL [...] entered into the Change in Procalcitonin Calculator (www.ohevej-cer-pdbonftwxd.Joroto) to determine the patient's Mortality Risk Prognosis In healthy neonates, plasma Procalcitonin (PCT) concentrations increase gradually after , reaching peak values at about 24 hours of age then decrease to normal values below 0.5 ng/mL by 48-72 hours of age. Procalcitonin 0.08 ng/mL Normal 0.00-0.09 [facility] Comment on above: Result Comment: Suspected Sepsis: [...] entered into the Change in Procalcitonin Calculator (www.wozema-mum-tfkuwbrtuu.Joroto) to determine the patient's Mortality Risk Prognosis In healthy neonates, plasma Procalcitonin (PCT) concentrations increase gradually after , reaching peak values at about 24 hours of age then decrease to normal values below 0.5 ng/mL by 48-72 hours of age. Performed By: #### U MICAO, UAX #### [facility] [place] [address] [employer]: Giovany Patel MD Troponinon 09-06-2023 Interpretation and review of laboratory results Abnormal [facility] Troponin I.cardiac High sensitivity method [Mass/Vol] 20 ng/L High 0 - 14 ng/L [facility] Comment on above: High Sensitivity Tro ponin values cannot be compared with other Troponin methodologies. Troponin, High Sens 20 ng/L High 0-14 [facility] Comment on above: Result Comment: High Sensitivity Troponin values cannot be compared with other Troponin methodologies. Performed By: #### U MARTÍN, UAX #### [facility] [address] [place], [place] [phone] [employer]: Giovany Patel MD Interpretation and review of laboratory results Abnormal [facility] Troponin I.cardiac High sensitivity method [Mass/Vol] 21 ng/L High 0 - 14 ng/L [facility] Comment on above: High Sensitivity Tro ponin values cannot be compared with other Troponin methodologies. [facility] Troponin, High Sens 21 ng/L High 0-14 [facility] Comment on above: Result Comment: High Sensitivity Troponin values cannot be compared with other Troponin methodologies. Performed By: #### U MARTÍN UAX #### [facility] [address] [place] [address] [employer]: Giovany Patel MD XR CHEST PORTABLEon 09-06-19 [...] Zenon Light MD 09/06/23 Final result Normal [facility] BNPon 02-26-2022 Natriuretic peptide B (Bld) [Mass/Vol] 3520.0 pg/mL Critically high <=1,800.0 [facility] Comment on above: Performed By: #### C MP, BNP #### [facility] [address] [address] [address] Yisel Liu CBC AUTO DIFFon 02-26-2022 BASO # 0.0 103/ul Normal 0.0-0.1 [facility] Comment on above: Performed By: #### C BC #### [facility] [address] [place] [address] Dr. Yisel Liu Basophils/100 WBC (Bld) 0.1 % Critically low 0.2-2.0 [facility] Comment on above: Performed By: #### C BC #### [facility] [address] [place] [address] Dr. Yisel Liu EO # 0.0 103/ul Normal 0.0-0.7 [facility] Comment on above: Performed By: #### C BC #### [facility] [address] [place] [address] Dr. Yisel Liu Eosinophils/100 WBC (Bld) 0.0 % Critically low 0.9-7.0 [facility] Comment on above: Performed By: #### C BC #### [facility] [address] [place] [address] Dr. Yisel Liu Erythrocyte distribution width (RBC) [Ratio] 16.6 % Critically high 11.0-15.0 [facility] Comment on above: Performed By: #### C BC #### [facility] [address] [place] [address] Dr. Yisel Liu Hematocrit (Bld) [Volume fraction] 36.2 % Normal 36.0-48.0 [facility] Comment on above: Performed By: #### C BC #### [facility] [address] [place] [address] Dr. Yisel Liu Hemoglobin (Bld) [Mass/Vol] 11.1 g/dL Critically low 12.0-16.0 [facility] Comment on above: Performed By: #### C BC #### [facility] [address] [place] [address] Dr. Yisel Liu IG # 0.14 10e3/ul Critically high 0.00-0.03 [facility] Comment on above: Performed By: #### C BC #### [facility] [address] [place] [address] Dr. Yisel Liu IG % 1.0 % Critically high 0.0-0.5 [facility] Comment on above: Performed By: #### C BC #### [facility] [address] [place] [address] Dr. Yisel Liu LYMPH # 0.8 103/ul Critically low 1.2-3.8 [facility] Comment on above: Performed By: #### C BC #### [facility] [address] [place] [address] Dr. Yisel Liu Lymphocytes/100 WBC (Bld) 5.9 % Critically low 20.5-60.0 [facility] Comment on above: Performed By: #### C BC #### [facility] [address] [place] [address] Dr. Yisel Liu MANUAL DIFF REQ NO Normal [facility] Comment on above: Performed By: #### C BC #### [facility] [address] [place] [address] Dr. Yisel Liu MCH (RBC) [Entitic mass] 28.0 pg Normal 26.7-34.0 [facility] Comment on above: Performed By: #### C BC #### [facility] [address] [place] [address] Dr. Yisel Liu MCHC (RBC) [Mass/Vol] 30.7 g/dL Normal 29.9-35.2 [facility] Comment on above: Performed By: #### C BC #### [facility] [address] [place] [address] Dr. Yisel Liu MCV (RBC) [Entitic vol] 91.2 fL Normal 81.0-99.0 [facility] Comment on above: Performed By: #### C BC #### [facility] [address] [place] [address] Dr. Yisel Liu MONO # 1.0 103/ul Critically high 0.3-0.8 [facility] Comment on above: Performed By: #### C BC #### [facility] [address] [place] [address] Dr. Yisel Liu Monocytes/100 WBC (Bld) 7.6 % Normal 1.7-12.0 [facility] Comment on above: Performed By: #### C BC #### [facility] [address] [address] [address] Yisel Liu NEUT # 11.4 103/ul Critically high 1.4-6.5 [facility] Comment on above: Performed By: #### C BC #### [facility] [address] [address] [address] Yisel Liu Neutrophils/100 WBC (Bld) 85.4 % Critically high 43.0-75.0 [facility] Comment on above: Performed By: #### C BC #### [facility] [address] [place] [address] Dr. Yisel Liu Platelet mean volume (Bld) [Entitic vol] 8.8 fL Critically low 9.5-13.5 [facility] Comment on above: Performed By: #### C BC #### [facility] [address] [address] [address] Yisel Liu PLT 325 103/ul Normal 150-450 [facility] Comment on above: Performed By: #### C BC #### [facility] [address] [place] [address] Dr. Yisel Liu RBC 3.97 106/ul Critically low 4.20-5.40 [facility] Comment on above: Performed By: #### C BC #### [facility] [address] [place] [address] Dr. Yisel Liu WBC 13.4 103/ul Critically high 4.0-11.0 [facility] Comment on above: Performed By: #### C BC #### [facility] [address] [address] [address] Yisel Liu PROF 14(COMP METB)on 022 Albumin [Mass/Vol] 2.7 g/dL Critically low 3.4-5.0 [facility] Comment on above: Performed By: #### C MP, BNP #### [facility] [address] [place] [address] Dr. Yisel Liu Albumin/Globulin [Mass ratio] 0.6 {ratio} Normal [facility] Comment on above: Performed By: #### C MP, BNP #### [facility] [address] [place] [address] Dr. Yisel Liu ALP [Catalytic activity/Vol] 49 U/L Normal 46-116 [facility] Comment on above: Performed By: #### C MP, BNP #### [facility] [address] [place] [address] Dr. Yisel Liu ALT [Catalytic activity/Vol] 28 U/L Normal 14-59 [facility] Comment on above: Performed By: #### C MP, BNP #### [facility] [address] [place] [address] Dr. Yisel Liu Anion gap [Moles/Vol] 10.9 mmol/L Normal [facility] Comment on above: Performed By: #### C MP, BNP #### [facility] [address] [place] [address] Dr. Yisel Liu AST [Catalytic activity/Vol] 29 U/L Normal 15-37 [facility] Comment on above: Performed By: #### C MP, BNP #### [facility] [address] [place] [address] Dr. Yisel Liu Bilirubin [Mass/Vol] 0.5 mg/dL Normal 0.2-1.0 [facility] Comment on above: Performed By: #### C MP, BNP #### [facility] [address] [place] [address] Dr. Yisel Liu Calcium [Mass/Vol] 9.7 mg/dL Normal 8.5-10.1 [facility] Comment on above: Performed By: #### C MP, BNP #### [facility] [address] [place] [address] Dr. Yisel Liu Chloride [Moles/Vol] 97 mmol/L Critically low 98-107 [facility] Comment on above: Performed By: #### C MP, BNP #### [facility] [address] [place] [address] Dr. Yisel Liu CO2 [Moles/Vol] 38.5 mmol/L Critically high 21.0-32.0 [facility] Comment on above: Performed By: #### C MP, BNP #### [facility] [address] [place] [address] Dr. Yisel Liu Creatinine [Mass/Vol] 1.67 mg/dL Critically high 0.55-1.02 [facility] Comment on above: Performed By: #### C MP, BNP #### [facility] [address] [address] [address] Yisel Liu EGFR-AF KAZAKH 36 mL/min/1.73m2 Critically low >=60 [facility] Comment on above: Performed By: #### C MP, BNP #### [facility] [address] [place] [address] Dr. Yisel Liu EGFR-NON AF KAZAKH 30 mL/min/1.73m2 Critically low >=60 [facility] Comment on above: Performed By: #### C MP, BNP #### [facility] [address] [place] [address] Dr. Yisel Liu Globulin (S) [Mass/Vol] 4.8 g/dL Normal [facility] Comment on above: Performed By: #### C MP, BNP #### [facility] [address] [place] [address] Dr. Yisel Liu Glucose [Mass/Vol] 159 mg/dL Critically high 74-106 [facility] Comment on above: Performed By: #### C MP, BNP #### [facility] [address] [place] [address] Dr. Yisel Liu Potassium [Moles/Vol] 5.4 mmol/L Critically high 3.5-5.1 [facility] Comment on above: Performed By: #### C MP, BNP #### [facility] [address] [place] [address] Dr. Yisle Liu Protein [Mass/Vol] 7.5 g/dL Normal 6.4-8.2 [facility] Comment on above: Performed By: #### C MP, BNP #### [facility] [address] [place] [address] Dr. Yisel Liu Sodium [Moles/Vol] 141 mmol/L Normal 136-145 [facility] Comment on above: Performed By: #### C MP, BNP #### [facility] [address] [address] [address] Yisel Liu Urea nitrogen [Mass/Vol] 61.0 mg/dL Critically high 7.0-18.0 [facility] Comment on above: Performed By: #### C MP, BNP #### [facility] [address] [address] [address] Yisel Liu Urea nitrogen/Creatinine [Mass ratio] 36.5 mg/mg Normal [facility] Comment on above: Performed By: #### C MP, BNP #### [facility] [address] [place] [address] Dr. Yisel Liu XR CHEST 1 Von [...] TOMAS Date: 2022-02-26 05:15 Normal [facility] BNP[facility] 02-25-2022 Natriuretic peptide B (Bld) [Mass/Vol] 3112.0 pg/mL Critically high <=1,800.0 [facility] Comment on above: Performed By: #### P HVEN #### [facility] [address] [place] [address] Dr. Yisel Liu CBC AUTO DIFFon 02-25-2022 BASO # 0.0 103/ul Normal 0.0-0.1 [facility] Comment on above: Performed By: #### D IG #### [facility] [address] [address] [address] Yisel Liu Basophils/100 WBC (Bld) 0.1 % Critically low 0.2-2.0 [facility] Comment on above: Performed By: #### D IG #### [facility] [address] [address] [address] Yisel Liu EO # 0.0 103/ul Normal 0.0-0.7 [facility] Comment on above: Performed By: #### D IG #### [facility] [address] [address] [address] Yisel Liu Eosinophils/100 WBC (Bld) 0.0 % Critically low 0.9-7.0 [facility] Comment on above: Performed By: #### D IG #### [facility] [address] [address] [address] Yisel Liu Erythrocyte distribution width (RBC) [Ratio] 16.7 % Critically high 11.0-15.0 [facility] Comment on above: Performed By: #### D IG #### [facility] [address] [place] [address] Dr. Yisel Liu Hematocrit (Bld) [Volume fraction] 38.4 % Normal 36.0-48.0 [facility] Comment on above: Performed By: #### D IG #### [facility] [address] [address] [address] Yisel Liu Hemoglobin (Bld) [Mass/Vol] 11.9 g/dL Critically low 12.0-16.0 [facility] Comment on above: Performed By: #### D IG #### [facility] [address] [address] [address] Yisel Liu IG # 0.09 10e3/ul Critically high 0.00-0.03 [facility] Comment on above: Performed By: #### D IG #### [facility] [address] [address] [address] Yisel Liu IG % 0.6 % Critically high 0.0-0.5 [facility] Comment on above: Performed By: #### D IG #### [facility] [address] [address] [address] Yisel Liu LYMPH # 0.7 103/ul Critically low 1.2-3.8 [facility] Comment on above: Performed By: #### D IG #### [facility] [address] [address] [address] Yisel Liu Lymphocytes/100 WBC (Bld) 5.0 % Critically low 20.5-60.0 [facility] Comment on above: Performed By: #### D IG #### [facility] [address] [place] [address] Dr. Yisel Liu MANUAL DIFF REQ NO Normal [facility] Comment on above: Performed By: #### D IG #### [facility] [address] [place] [address] Dr. Yisel Liu MCH (RBC) [Entitic mass] 28.0 pg Normal 26.7-34.0 [facility] Comment on above: Performed By: #### D IG #### [facility] [address] [place] [address] Dr. Yisel Liu MCHC (RBC) [Mass/Vol] 31.0 g/dL Normal 29.9-35.2 [facility] Comment on above: Performed By: #### D IG #### [facility] [address] [place] [address] Dr. Yisel Liu MCV (RBC) [Entitic vol] 90.4 fL Normal 81.0-99.0 [facility] Comment on above: Performed By: #### D IG #### [facility] [address] [place] [address] Dr. Yisel Liu MONO # 1.2 103/ul Critically high 0.3-0.8 [facility] Comment on above: Performed By: #### D IG #### [facility] [address] [place] [address] Dr. Yisel Liu Monocytes/100 WBC (Bld) 8.1 % Normal 1.7-12.0 [facility] Comment on above: Performed By: #### D IG #### [facility] [address] [place] [address] Dr. Yisel Liu NEUT # 12.2 103/ul Critically high 1.4-6.5 [facility] Comment on above: Performed By: #### D IG #### [facility] [address] [address] [address] Yisel Liu Neutrophils/100 WBC (Bld) 86.2 % Critically high 43.0-75.0 [facility] Comment on above: Performed By: #### D IG #### [facility] [address] [address] [address] Yisel Liu Platelet mean volume (Bld) [Entitic vol] 8.8 fL Critically low 9.5-13.5 [facility] Comment on above: Performed By: #### D IG #### [facility] [address] [address] [address] Yisel Liu PLT 317 103/ul Normal 150-450 [facility] Comment on above: Performed By: #### D IG #### [facility] [address] [place] [address] Dr. Yisel Liu RBC 4.25 106/ul Normal 4.20-5.40 [facility] Comment on above: Performed By: #### D IG #### [facility] [address] [place] [address] Dr. Yisel Liu WBC 14.1 103/ul Critically high 4.0-11.0 [facility] Comment on above: Performed By: #### D IG #### [facility] [address] [place] [address] Dr. Yisel Liu POINT OF CARE GLUCOSEon 12-0 Glucose [Mass/Vol] 312 mg/dL Critically high 74-106 [facility] Comment on above: Performed By: #### P OCGLUC #### [facility] [address] [place] [address] Dr. Yisel Liu Glucose [Mass/Vol] 94 mg/dL Normal 74-106 [facility] Comment on above: Performed By: #### D IG #### [facility] [address] [address] [address] Yisel Liu Glucose [Mass/Vol] 260 mg/dL Critically high 74-106 [facility] Comment on above: Performed By: #### C BC #### [facility] [address] [address] [address] Yisel Liu PROF 14(COMP METB)on 022 Albumin [Mass/Vol] 2.7 g/dL Critically low 3.4-5.0 [facility] Comment on above: Performed By: #### P HVEN #### [facility] [address] [address] [address] Yisel Liu Albumin/Globulin [Mass ratio] 0.5 {ratio} Normal [facility] Comment on above: Performed By: #### P HVEN #### [facility] [address] [address] [address] Yisel Liu ALP [Catalytic activity/Vol] 58 U/L Normal 46-116 [facility] Comment on above: Performed By: #### P HVEN #### [facility] [address] [place] [address] Dr. Yisel Liu ALT [Catalytic activity/Vol] 32 U/L Normal 14-59 [facility] Comment on above: Performed By: #### P HVEN #### [facility] [address] [address] [address] Yisel Liu Anion gap [Moles/Vol] 12.3 mmol/L Normal [facility] Comment on above: Performed By: #### P HVEN #### [facility] [address] [place] [address] Dr. Yisel Liu AST [Catalytic activity/Vol] 54 U/L Critically high 15-37 [facility] Comment on above: Performed By: #### P HVEN #### [facility] [address] [address] [address] Yisel Liu Bilirubin [Mass/Vol] 0.5 mg/dL Normal 0.2-1.0 [facility] Comment on above: Performed By: #### P HVEN #### [facility] [address] [address] [address] Yisel Liu Calcium [Mass/Vol] 9.6 mg/dL Normal 8.5-10.1 [facility] Comment on above: Performed By: #### P HVEN #### [facility] [address] [address] [address] Yisel Liu Chloride [Moles/Vol] 96 mmol/L Critically low 98-107 [facility] Comment on above: Performed By: #### P HVEN #### [facility] [address] [address] [address] Yisel Liu CO2 [Moles/Vol] 33.9 mmol/L Critically high 21.0-32.0 [facility] Comment on above: Performed By: #### P HVEN #### [facility] [address] [address] [address] Yisel Liu Creatinine [Mass/Vol] 1.42 mg/dL Critically high 0.55-1.02 [facility] Comment on above: Performed By: #### P HVEN #### [facility] [address] [place] [address] Dr. Yisel Liu EGFR-AF KAZAKH 43 mL/min/1.73m2 Critically low >=60 [facility] Comment on above: Performed By: #### P HVEN #### [facility] [address] [address] [address] Yisel Liu EGFR-NON AF KAZAKH 36 mL/min/1.73m2 Critically low >=60 [facility] Comment on above: Performed By: #### P HVEN #### [facility] [address] [address] [address] Yisel Liu Globulin (S) [Mass/Vol] 5.3 g/dL Normal [facility] Comment on above: Performed By: #### P HVEN #### [facility] [address] [address] [address] Yisel Liu Glucose [Mass/Vol] 236 mg/dL Critically high 74-106 [facility] Comment on above: Performed By: #### P HVEN #### [facility] [address] [address] [address] Yisel Liu Potassium [Moles/Vol] 4.2 mmol/L Normal 3.5-5.1 [facility] Comment on above: Performed By: #### P HVEN #### [facility] [address] [address] [address] Yisel Liu Protein [Mass/Vol] 8.0 g/dL Normal 6.4-8.2 [facility] Comment on above: Performed By: #### P HVEN #### [facility] [address] [address] [address] Yisel Liu Sodium [Moles/Vol] 138 mmol/L Normal 136-145 [facility] Comment on above: Performed By: #### P HVEN #### [facility] [address] [address] [address] Yisel Liu Urea nitrogen [Mass/Vol] 42.0 mg/dL Critically high 7.0-18.0 [facility] Comment on above: Performed By: #### P HVEN #### [facility] [address] [address] [address] Yisel Liu Urea nitrogen/Creatinine [Mass ratio] 29.6 mg/mg Normal [facility] Comment on above: Performed By: #### P HVEN #### [facility] [address] [address] [address] Yisel Liu XR CHEST 1 Von [...] by: ZENON TURNER Date: 2022-02-25 13:01 Normal [facility] XR CHEST 1 V EXAMINATION: XR [...] YBARRA Date: 2022-02-25 06:38 Normal [facility] BNPon 02-24-2022 Natriuretic peptide B (Bld) [Mass/Vol] 3585.0 pg/mL Critically high <=1,800.0 [facility] Comment on above: Performed By: #### C MP, BNP #### [facility] [address] [place] [address] Dr. Yisel Liu CBC AUTO DIFFon 02-24-2022 BASO # 0.0 103/ul Normal 0.0-0.1 [facility] Comment on above: Performed By: #### C BC #### [facility] [address] [place] [address] Dr. Yisel Liu Basophils/100 WBC (Bld) 0.2 % Normal 0.2-2.0 [facility] Comment on above: Performed By: #### C BC #### [facility] [address] [place] [address] Dr. Yisel Liu EO # 0.0 103/ul Normal 0.0-0.7 [facility] Comment on above: Performed By: #### C BC #### [facility] [address] [place] [address] Dr. Yisel Liu Eosinophils/100 WBC (Bld) 0.0 % Critically low 0.9-7.0 [facility] Comment on above: Performed By: #### C BC #### [facility] [address] [place] [address] Dr. Yisel Liu Erythrocyte distribution width (RBC) [Ratio] 16.4 % Critically high 11.0-15.0 [facility] Comment on above: Performed By: #### C BC #### [facility] [address] [place] [address] Dr. Yisel Liu Hematocrit (Bld) [Volume fraction] 37.7 % Normal 36.0-48.0 [facility] Comment on above: Performed By: #### C BC #### [facility] [address] [place] [address] Dr. Yisel Liu Hemoglobin (Bld) [Mass/Vol] 11.8 g/dL Critically low 12.0-16.0 [facility] Comment on above: Performed By: #### C BC #### [facility] [address] [place] [address] Dr. Yisel Liu IG # 0.04 10e3/ul Critically high 0.00-0.03 [facility] Comment on above: Performed By: #### C BC #### [facility] [address] [place] [address] Dr. Yisel Liu IG % 0.3 % Normal 0.0-0.5 [facility] Comment on above: Performed By: #### C BC #### [facility] [address] [place] [address] Dr. Yisel Liu LYMPH # 0.6 103/ul Critically low 1.2-3.8 [facility] Comment on above: Performed By: #### C BC #### [facility] [address] [place] [address] Dr. Yisel Liu Lymphocytes/100 WBC (Bld) 4.9 % Critically low 20.5-60.0 [facility] Comment on above: Performed By: #### C BC #### [facility] [address] [place] [address] Dr. Yisel Liu MANUAL DIFF REQ NO Normal [facility] Comment on above: Performed By: #### C BC #### [facility] [address] [place] [address] Dr. Yisel Liu MCH (RBC) [Entitic mass] 28.0 pg Normal 26.7-34.0 [facility] Comment on above: Performed By: #### C BC #### [facility] [address] [address] [address] Yisel Liu MCHC (RBC) [Mass/Vol] 31.3 g/dL Normal 29.9-35.2 [facility] Comment on above: Performed By: #### C BC #### [facility] [address] [address] [address] Yisel Liu MCV (RBC) [Entitic vol] 89.5 fL Normal 81.0-99.0 [facility] Comment on above: Performed By: #### C BC #### [facility] [address] [address] [address] Yisel Liu MONO # 0.8 103/ul Normal 0.3-0.8 [facility] Comment on above: Performed By: #### C BC #### [facility] [address] [address] [address] Yisel Liu Monocytes/100 WBC (Bld) 6.2 % Normal 1.7-12.0 [facility] Comment on above: Performed By: #### C BC #### [facility] [address] [address] [address] Yisel Liu NEUT # 11.5 103/ul Critically high 1.4-6.5 [facility] Comment on above: Performed By: #### C BC #### [facility] [address] [address] [address] Yisel Liu Neutrophils/100 WBC (Bld) 88.4 % Critically high 43.0-75.0 [facility] Comment on above: Performed By: #### C BC #### [facility] [address] [address] [address] Yisel Liu Platelet mean volume (Bld) [Entitic vol] 8.8 fL Critically low 9.5-13.5 [facility] Comment on above: Performed By: #### C BC #### [facility] [address] [address] [address] Yisel Liu PLT 361 103/ul Normal 150-450 [facility] Comment on above: Performed By: #### C BC #### [facility] [address] [address] [address] Yisel Liu RBC 4.21 106/ul Normal 4.20-5.40 [facility] Comment on above: Performed By: #### C BC #### [facility] [address] [place] [address] Dr. Yisel Liu WBC 13.0 103/ul Critically high 4.0-11.0 [facility] Comment on above: Performed By: #### C BC #### [facility] [address] [place] [address] Dr. Yisel Liu CULTURE URINEon 02-24-2022 CULTURE [...] hoxazole <=20 S F Normal [facility] Comment on above: Performed By: #### D IG #### [facility] [address] [place] [address] Dr. Yisel Liu PH VENOUS BLOODon 02-24-2022 PCO2 VENOUS 55.2 mmHg Critically high 40.0-52.0 [facility] Comment on above: Performed By: #### C BC #### [facility] [address] [place] [address] Dr. Yisel Liu pH VENOUS 7.439 Critically high 7.330-7.430 [facility] Comment on above: Performed By: #### C BC #### [facility] [address] [place] [address] Dr. Yisel Liu POINT OF CARE GLUCOSEon Glucose [Mass/Vol] 232 mg/dL Critically high 74-106 [facility] Comment on above: Performed By: #### C MP, BNP #### [facility] Laboratory [address] [place] [address] Dr. Yisel Liu Glucose [Mass/Vol] 198 mg/dL Critically high -106 [facility] Comment on above: Performed By: #### C MP, BNP #### [facility] [address] [place] [address] Dr. Yisel Liu Glucose [Mass/Vol] 270 mg/dL Critically high -106 [facility] Comment on above: Performed By: #### C MP, BNP #### [facility] [address] [place] [address] Dr. Yisel Liu Glucose [Mass/Vol] 324 mg/dL Critically high [facility]106 [facility] Comment on above: Performed By: #### D IG #### [facility] [address] [place] [address] Dr. Yisel Liu PROF 14(COMP METB)on 022 Albumin [Mass/Vol] 2.9 g/dL Critically low 3.4-5.0 Th [facility] Comment on above: Performed By: #### C MP, BNP #### [facility] [address] [place] [address] Dr. Yisel Liu Albumin/Globulin [Mass ratio] 0.5 {ratio} Normal [facility] Comment on above: Performed By: #### C MP, BNP #### [facility] [address] [place] [address] Dr. Yisel Liu ALP [Catalytic activity/Vol] 64 U/L Normal 46-116 [facility] Comment on above: Performed By: #### C MP, BNP #### [facility] [address] [place] [address] Dr. Yisel Liu ALT [Catalytic activity/Vol] 27 U/L Normal 14-59 [facility] Comment on above: Performed By: #### C MP, BNP #### [facility] [address] [place] [address] Dr. Yisel Liu Anion gap [Moles/Vol] 10.8 mmol/L Normal [facility] Comment on above: Performed By: #### C MP, BNP #### [facility] [address] [place] [address] Dr. Yisel Liu AST [Catalytic activity/Vol] 44 U/L Critically high 15-37 [facility] Comment on above: Performed By: #### C MP, BNP #### [facility] [address] [place] [address] Dr. Yisel Liu Bilirubin [Mass/Vol] 0.4 mg/dL Normal 0.2-1.0 [facility] Comment on above: Performed By: #### C MP, BNP #### [facility] [address] [place] [address] Dr. Yisel Liu Calcium [Mass/Vol] 9.2 mg/dL Normal 8.5-10.1 [facility] Comment on above: Performed By: #### C MP, BNP #### [facility] [address] [place] [address] Dr. Yisel Liu Chloride [Moles/Vol] 96 mmol/L Critically low 98-107 [facility] Comment on above: Performed By: #### C MP, BNP #### [facility] [address] [place] [address] Dr. Yisel Liu CO2 [Moles/Vol] 36.6 mmol/L Critically high 21.0-32.0 [facility] Comment on above: Performed By: #### C MP, BNP #### [facility] [address] [place] [address] Dr. Yisel Liu Creatinine [Mass/Vol] 1.22 mg/dL Critically high 0.55-1.02 [facility] Comment on above: Performed By: #### C MP, BNP #### [facility] [address] [place] [address] Dr. Yisel Liu EGFR-AF KAZAKH 52 mL/min/1.73m2 Critically low >=60 [facility] Comment on above: Performed By: #### C MP, BNP #### [facility] [address] [place] [address] Dr. Yisel Liu EGFR-NON AF KAZAKH 43 mL/min/1.73m2 Critically low >=60 [facility] Comment on above: Performed By: #### C MP, BNP #### [facility] [address] [place] [address] Dr. Yisel Liu Globulin (S) [Mass/Vol] 5.3 g/dL Normal [facility] Comment on above: Performed By: #### C MP, BNP #### [facility] [address] [place] [address] Dr. Yisel Liu Glucose [Mass/Vol] 265 mg/dL Critically high 74-106 [facility] Comment on above: Performed By: #### C MP, BNP #### [facility] [address] [place] [address] Dr. Yisel Liu Potassium [Moles/Vol] 3.4 mmol/L Critically low 3.5-5.1 [facility] Comment on above: Performed By: #### C MP, BNP #### [facility] [address] [place] [address] Dr. Yisel Liu Protein [Mass/Vol] 8.2 g/dL Normal 6.4-8.2 [facility] Comment on above: Performed By: #### C MP, BNP #### [facility] [address] [place] [address] Dr. Yisel Liu Sodium [Moles/Vol] 140 mmol/L Normal 136-145 [facility] Comment on above: Performed By: #### C MP, BNP #### [facility] [address] [place] [address] Dr. Yisel Liu Urea nitrogen [Mass/Vol] 27.0 mg/dL Critically high 7.0-18.0 [facility] Comment on above: Performed By: #### C MP, BNP #### [facility] [address] [place] [address] Dr. Yisel Liu Urea nitrogen/Creatinine [Mass ratio] 22.1 mg/mg Normal [facility] Comment on above: Performed By: #### C MP, BNP #### [facility] [address] [place], [place] [id number] Dr. Yisel Liu T3, TOTAL (TRIIODOTHYRONINE) on 02-24-2022 T3, TOTAL 68 ng/dL Critically low 71-180 [facility] Comment on above: Performed By: #### C MP, BNP #### [facility] [address] [place] [address] Dr. Yisel Liu XR CHEST 1 Von [...] CUEVAS Date: 2022-02-24 07:10 Normal [facility] BNPon 02-23-2022 Natriuretic peptide B (Bld) [Mass/Vol] 3654.0 pg/mL Critically high <=1,800.0 [facility] Comment on above: Performed By: #### C MP, BNP #### [facility] [address] [place] [address] Dr. Yisel Liu CBC AUTO DIFFon 02-23-2022 BASO # 0.0 103/ul Normal 0.0-0.1 [facility] Comment on above: Performed By: #### C BC #### [facility] [address] [place] [address] Dr. Yisel Liu Basophils/100 WBC (Bld) 0.0 % Critically low 0.2-2.0 [facility] Comment on above: Performed By: #### C BC #### [facility] [address] [place] [address] Dr. Yisel Liu EO # 0.0 103/ul Normal 0.0-0.7 [facility] Comment on above: Performed By: #### C BC #### [facility] [address] [place] [address] Dr. Yisel Liu Eosinophils/100 WBC (Bld) 0.0 % Critically low 0.9-7.0 [facility] Comment on above: Performed By: #### C BC #### [facility] [address] [place] [address] Dr. Yisel Liu Erythrocyte distribution width (RBC) [Ratio] 16.2 % Critically high 11.0-15.0 [facility] Comment on above: Performed By: #### C BC #### [facility] [address] [place] [address] Dr. Yisel Liu Hematocrit (Bld) [Volume fraction] 36.1 % Normal 36.0-48.0 [facility] Comment on above: Performed By: #### C BC #### [facility] [address] [place] [address] Dr. Yisel Liu Hemoglobin (Bld) [Mass/Vol] 11.5 g/dL Critically low 12.0-16.0 [facility] Comment on above: Performed By: #### C BC #### [facility] [address] [place] [address] Dr. Yisel Liu IG # 0.01 10e3/ul Normal 0.00-0.03 [facility] Comment on above: Performed By: #### C BC #### [facility] [address] [place] [address] Dr. Yisel Liu IG % 0.2 % Normal 0.0-0.5 [facility] Comment on above: Performed By: #### C BC #### [facility] [address] [place] [address] Dr. Yisel Liu LYMPH # 0.5 103/ul Critically low 1.2-3.8 The [facility] Comment on above: Performed By: #### C BC #### [facility] [address] [place] [address] Dr. Yisel Liu Lymphocytes/100 WBC (Bld) 9.7 % Critically low 20.5-60.0 [facility] Comment on above: Performed By: #### C BC #### [facility] [address] [place] [address] Dr. Yisel Liu MANUAL DIFF REQ NO Normal [facility] Comment on above: Performed By: #### C BC #### [facility] [address] [place] [address] Dr. Yisel Liu MCH (RBC) [Entitic mass] 28.4 pg Normal 26.7-34.0 [facility] Comment on above: Performed By: #### C BC #### [facility] [address] [place] [address] Dr. Yisel Liu MCHC (RBC) [Mass/Vol] 31.9 g/dL Normal 29.9-35.2 [facility] Comment on above: Performed By: #### C BC #### [facility] [address] [place] [address] Dr. Yisel Liu MCV (RBC) [Entitic vol] 89.1 fL Normal 81.0-99.0 [facility] Comment on above: Performed By: #### C BC #### [facility] [address] [place] [address] Dr. Yisel Liu MONO # 0.2 103/ul Critically low 0.3-0.8 [facility] Comment on above: Performed By: #### C BC #### [facility] [address] [place] [address] Dr. Yisel Liu Monocytes/100 WBC (Bld) 3.6 % Normal 1.7-12.0 [facility] Comment on above: Performed By: #### C BC #### [facility] [address] [place] [address] Dr. Yisel Liu NEUT # 4.8 103/ul Normal 1.4-6.5 [facility] Comment on above: Performed By: #### C BC #### [facility] [address] [place] [address] Dr. Yisel Liu Neutrophils/100 WBC (Bld) 86.5 % Critically high 43.0-75.0 [facility] Comment on above: Performed By: #### C BC #### [facility] [address] [place] [address] Dr. Yisel Liu Platelet mean volume (Bld) [Entitic vol] 9.0 fL Critically low 9.5-13.5 [facility] Comment on above: Performed By: #### C BC #### [facility] [address] [place] [address] Dr. Yisel Liu PLT 278 103/ul Normal 150-450 [facility] Comment on above: Performed By: #### C BC #### [facility] [address] [address] [address] Yisel Liu RBC 4.05 106/ul Critically low 4.20-5.40 [facility] Comment on above: Performed By: #### C BC #### [facility] [address] [place] [address] Dr. Yisel Liu WBC 5.6 103/ul Normal 4.0-11.0 [facility] Comment on above: Performed By: #### C BC #### [facility] [address] [place] [address] Dr. Yisel Liu ECHOCARDIO M/2D COMPLETEon 1 04-26-2021 ECHOCARDIO M/2D COMPLETE Patient: STARLA SWEENEY Exam Date: 02/23/2022 : 1945 Gender:F Ordering : DR KARY CATHERINE . Admission #: [id number] Family : Order #: [id number] CLICK HERE TO VIEW EXAM ECHOCARDIOGRAM REPORT [...] (Peak Joseph): 1.55 cm2, 1.55 cm2 Deceleration [place]: 1.84 m/s2 Pressure Half-Time: 561.41 ms Peak [...] Hill M.D. on 02/25/2022 at 12:52 Normal [facility] PH VENOUS BLOODon 02-23-2022 PCO2 VENOUS 48.0 mmHg Normal 40.0-52.0 [facility] Comment on above: Performed By: #### P HVEN #### [facility] [address] [place] [address] Dr. Yisel Liu pH VENOUS 7.479 Critically high 7.330-7.430 [facility] Comment on above: Performed By: #### P HVEN #### [facility] [address] [place] [address] Dr. Yisel Liu POINT OF CARE GLUCOSEon Glucose [Mass/Vol] 323 mg/dL Critically high [facility]106 [facility] Comment on above: Performed By: #### C MP, BNP #### [facility] [address] [place] [address] Dr. Yisel Liu Glucose [Mass/Vol] 372 mg/dL Critically high [address] [place] [address] Comment on above: Performed By: #### C MP, BNP #### [facility] [address] [place] [address] Dr. Yisel Liu Glucose [Mass/Vol] 347 mg/dL Critically high [facility]106 [facility] Comment on above: Performed By: #### D IG #### [facility] [address] [place] [address] Dr. Yisel Liu Glucose [Mass/Vol] 474 mg/dL Critically high [facility]106 [facility] Comment on above: Performed By: #### C MP, BNP #### [facility] [address] [place] [address] Dr. Yisel Liu PROF 14(COMP METB)on 022 Albumin [Mass/Vol] 2.8 g/dL Critically low 3.4-5.0 Th [facility] Comment on above: Performed By: #### C MP, BNP #### [facility] [address] [address] [address] Yisel Liu Albumin/Globulin [Mass ratio] 0.5 {ratio} Normal [facility] Comment on above: Performed By: #### C MP, BNP #### [facility] [address] [address] [address] Yisel Liu ALP [Catalytic activity/Vol] 72 U/L Normal 46-116 [facility] Comment on above: Performed By: #### C MP, BNP #### [facility] [address] [place] [address] Dr. Yisel Liu ALT [Catalytic activity/Vol] 14 U/L Normal 14-59 [facility] Comment on above: Performed By: #### C MP, BNP #### [facility] [address] [place] [address] Dr. Yisel Liu Anion gap [Moles/Vol] 11.3 mmol/L Normal [facility] Comment on above: Performed By: #### C MP, BNP #### [facility] [address] [place] [address] Dr. Yisel Liu AST [Catalytic activity/Vol] 23 U/L Normal 15-37 [facility] Comment on above: Performed By: #### C MP, BNP #### [facility] [address] [place] [address] Dr. Yisel Liu Bilirubin [Mass/Vol] 0.5 mg/dL Normal 0.2-1.0 [facility] Comment on above: Performed By: #### C MP, BNP #### [facility] [address] [address] [address] Yisel Liu Calcium [Mass/Vol] 9.0 mg/dL Normal 8.5-10.1 [facility] Comment on above: Performed By: #### C MP, BNP #### [facility] [address] [address] [address] Yisel Liu Chloride [Moles/Vol] 92 mmol/L Critically low 98-107 [facility] Comment on above: Performed By: #### C MP, BNP #### [facility] [address] [place] [address] Dr. Yisel Liu CO2 [Moles/Vol] 34.8 mmol/L Critically high 21.0-32.0 [facility] Comment on above: Performed By: #### C MP, BNP #### [facility] [address] [address] [address] Yisel Liu Creatinine [Mass/Vol] 1.00 mg/dL Normal 0.55-1.02 [facility] Comment on above: Performed By: #### C MP, BNP #### [facility] [address] [place] [address] Dr. Yisel Liu EGFR-AF KAZAKH >60 Normal >=60 [facility] Comment on above: Performed By: #### C MP, BNP #### [facility] [address] [place] [address] Dr. Yisel Liu EGFR-NON AF KAZAKH 54 mL/min/1.73m2 Critically low >=60 [facility] Comment on above: Performed By: #### C MP, BNP #### [facility] [address] [place] [address] Dr. Yisel Liu Globulin (S) [Mass/Vol] 5.5 g/dL Normal [facility] Comment on above: Performed By: #### C MP, BNP #### [facility] [address] [place] [address] Dr. Yisel Liu Glucose [Mass/Vol] 416 mg/dL Critically high 74-106 [facility] Comment on above: Performed By: #### C MP, BNP #### [facility] [address] [place] [address] Dr. Yisel Liu Potassium [Moles/Vol] 3.1 mmol/L Critically low 3.5-5.1 [facility] Comment on above: Performed By: #### C MP, BNP #### [facility] [address] [address] [address] Yisel Liu Protein [Mass/Vol] 8.3 g/dL Critically high 6.4-8.2 [facility] Comment on above: Performed By: #### C MP, BNP #### [facility] [address] [address] [address] Yisel Liu Sodium [Moles/Vol] 135 mmol/L Critically low 136-145 [facility] Comment on above: Performed By: #### C MP, BNP #### [facility] [address] [address] [address] Yisel Liu Urea nitrogen [Mass/Vol] 20.0 mg/dL Critically high 7.0-18.0 [facility] Comment on above: Performed By: #### C MP, BNP #### [facility] [address] [address] [address] Yisel Liu Urea nitrogen/Creatinine [Mass ratio] 20.0 mg/mg Normal [facility] Comment on above: Performed By: #### C MP, BNP #### [facility] [address] [address] [address] Yisel Liu XR CHEST 1 Von [...] by: BRITTANY YBARRA Date: 2022-02-23 07:12 Normal [facility] AMMONIAon 02-22-2022 Ammonia (P) [Moles/Vol] 36 umol/L Critically high 11-32 [facility] Comment on above: Performed By: #### C MP, BNP #### [facility] [address] [place] [address] Dr. Yisel Liu [facility]2022 02 MODE SIMPLE MASK Normal [facility] Comment on above: Performed By: #### A BG #### [facility] [address] [place] [address] Dr. Yisel Liu ALLENS TEST Positive [facility] Comment on above: Performed By: #### A BG #### [facility] [address] [place] [address] Dr. Yisel Liu Base excess Calc (Bld) [Moles/Vol] 0.7 mmol/L Normal -2.0-2.0 [facility] Comment on above: Performed By: #### A BG #### [facility] [address] [place] [address] Dr. Yisel Liu BIPAP PRESSURE [facility] Comment on above: Performed By: #### A BG #### [facility] [address] [place] [address] Dr. Yisel Liu CPAP [facility] Comment on above: Performed By: #### A BG #### [facility] [address] [place] [address] Dr. Yisel Liu FIO2 [facility] Comment on above: Performed By: #### A BG #### [facility] [address] [place] [address] Dr. Yisel Liu HCO3 (Bld) [Moles/Vol] 28.8 mmol/L Critically high 22.0-26.0 [facility] Comment on above: Performed By: #### A BG #### [facility] [address] [place] [address] Dr. Yisel Liu LPM 6 [facility] Comment on above: Performed By: #### A BG #### [facility] [address] [place] [address] Dr. Yisel Liu MINUTE VOLUME Normal [facility] Comment on above: Performed By: #### A BG #### [facility] [address] [address] [address] Yisel Liu Oxygen (Bld) [Partial pressure] 82.6 mm[Hg] Normal 80.0-100.0 [facility] Comment on above: Performed By: #### A BG #### [facility] [address] [place] [address] Dr. Yisel Liu Oxygen saturation in Blood 93.0 % Critically low 95.0-100.0 [facility] Comment on above: Performed By: #### A BG #### [facility] [address] [place] [address] Dr. Yisel Liu PCO2 74.3 mmHg Critically high 35.0-45.0 [facility] Comment on above: Performed By: #### A BG #### [facility] [address] [place] [address] Dr. Yisel Liu [facility] Comment on above: Performed By: #### A BG #### [facility] [address] [place] [address] Dr. Yisel Liu pH (Bld) 7.197 [pH] Critically low 7.350-7.450 [facility] Comment on above: Performed By: #### A BG #### [facility] [address] [place] [address] Dr. Yisel Liu [facility] Comment on above: Performed By: #### A BG #### [facility] [address] [place] [address] Dr. Yisel Liu PS [facility] Comment on above: Performed By: #### A BG #### [facility] [address] [place] [address] Dr. Yisel Liu PUNCTURE SITE RR [facility] Comment on above: Performed By: #### A BG #### [facility] [address] [place] [address] Dr. Yisel Liu RATE [facility] Comment on above: Performed By: #### A BG #### [facility] [address] [place] [address] Dr. Yisel Liu [facility] Comment on above: Performed By: #### A BG #### [facility] [address] [place] [address] Dr. Yisel Liu [facility] Comment on above: Performed By: #### A BG #### [facility] [address] [place] [address] Dr. Yisel Liu BNPon 02-22-2022 Natriuretic peptide B (Bld) [Mass/Vol] 2771.0 pg/mL Critically high <=1,800.0 [facility] Comment on above: Performed By: #### C MP, BNP #### [facility] [address] [place] [address] Dr. Yisel Liu CARDIAC MIKEY 3-6on 2 CK [Catalytic activity/Vol] 18 U/L Critically low 26-192 [facility] Comment on above: Performed By: #### C BC #### [facility] [address] [place] [address] Dr. Yisel Liu CK.MB [Mass/Vol] ng/mL Normal <=3.60 [facility] Comment on above: Performed By: #### C BC #### [facility] [address] [place] [address] Dr. Yisel Liu HSTROP 10.3 pg/mL Normal 4.0-51.3 [facility] Comment on above: Result Comment: CUT- OFF POINTS HAVE BEEN ESTABLISHED BASED ON THE FOURTH UNIVERSAL DEFINITIONS OF MYOCARDIAL INFARCTION. THE UPPER REFERENCE LIMIT (URL) OF TROPONIN, DEFINED THE 99TH PERCENTILE OF cTnI DISTRIBUTION IN A REFERENCE POPULATION, HAS BEEN CONFIRMED THE DECISION THRESHOLD FOR [place] DIAGNOSIS. Performed By: #### C BC #### [facility] [address] [place] [address] Dr. Yisel Liu CK [Catalytic activity/Vol] 36 U/L Normal 26-192 [facility] Comment on above: Performed By: #### C MP, BNP #### [facility] [address] [place] [address] Dr. Yisel Liu CK.MB [Mass/Vol] ng/mL Normal <=3.60 [facility] Comment on above: Performed By: #### C MP, BNP #### [facility] [address] [place] [address] Dr. Yisel Liu HSTROP 9.8 pg/mL Normal 4.0-51.3 [facility] Comment on above: Result Comment: CUT- OFF POINTS HAVE BEEN ESTABLISHED BASED ON THE FOURTH UNIVERSAL DEFINITIONS OF MYOCARDIAL INFARCTION. THE UPPER REFERENCE LIMIT (URL) OF TROPONIN, DEFINED THE 99TH PERCENTILE OF cTnI DISTRIBUTION IN A REFERENCE POPULATION, HAS BEEN CONFIRMED THE DECISION THRESHOLD FOR [place] DIAGNOSIS. Performed By: #### C MP, BNP #### [facility] [address] [place] [address] Dr. Yisel Liu CK [Catalytic activity/Vol] 15 U/L Critically low 26-192 [facility] Comment on above: Performed By: #### C MP, BNP #### [facility] [address] [place] [address] Dr. Yisel Liu CK.MB [Mass/Vol] ng/mL Normal <=3.60 [facility] Comment on above: Performed By: #### C MP, BNP #### [facility] [address] [place] [address] Dr. Yisel Liu HSTROP 9.7 pg/mL Normal 4.0-51.3 [facility] Comment on above: Result Comment: CUT- OFF POINTS HAVE BEEN ESTABLISHED BASED ON THE FOURTH UNIVERSAL DEFINITIONS OF MYOCARDIAL INFARCTION. THE UPPER REFERENCE LIMIT (URL) OF TROPONIN, DEFINED THE 99TH PERCENTILE OF cTnI DISTRIBUTION IN A REFERENCE POPULATION, HAS BEEN CONFIRMED THE DECISION THRESHOLD FOR [place] DIAGNOSIS. Performed By: #### C MP, BNP #### [facility] [address] [place] [address] Dr. Yisel Liu CK [Catalytic activity/Vol] 8 U/L Critically low 26-192 [facility] Comment on above: Performed By: #### C MREP #### [facility] [address] [place] [address] Dr. Yisel Liu Performed By: #### D IG #### [facility] [address] [place] [address] Dr. Yisel Liu CK.MB [Mass/Vol] ng/mL Normal <=3.60 [facility] Comment on above: Performed By: #### C MREP #### [facility] [address] [place] [address] Dr. Yisel Liu Performed By: #### D IG #### [facility] [address] [place] [address] Dr. Yisel Liu HSTROP 9.4 pg/mL Normal 4.0-51.3 [facility] Comment on above: Result Comment: CUT- OFF POINTS HAVE BEEN ESTABLISHED BASED ON THE FOURTH UNIVERSAL DEFINITIONS OF MYOCARDIAL INFARCTION. THE UPPER REFERENCE LIMIT (URL) OF TROPONIN, DEFINED THE 99TH PERCENTILE OF cTnI DISTRIBUTION IN A REFERENCE POPULATION, HAS BEEN CONFIRMED THE DECISION THRESHOLD FOR [place] DIAGNOSIS. Performed By: #### C MREP #### [facility] [address] [place] [address] Dr. Yisel Liu CARDIAC MIKEY ADMITon 022 HSTROP 11.1 pg/mL Normal 4.0-51.3 [facility] Comment on above: Result Comment: CUT- OFF POINTS HAVE BEEN ESTABLISHED BASED ON THE FOURTH UNIVERSAL DEFINITIONS OF MYOCARDIAL INFARCTION. THE UPPER REFERENCE LIMIT (URL) OF TROPONIN, DEFINED THE 99TH PERCENTILE OF cTnI DISTRIBUTION IN A REFERENCE POPULATION, HAS BEEN CONFIRMED THE DECISION THRESHOLD FOR [place] DIAGNOSIS. Performed By: #### D IG #### [facility] [address] [place] [address] Dr. Yisel Liu YULI 16 ng/mL Normal 9-82 [facility] Comment on above: Performed By: #### D IG #### [facility] [address] [place] [address] Dr. Yisel Liu CBC AUTO DIFFon 02-22-2022 BASO # 0.0 103/ul Normal 0.0-0.1 [facility] Comment on above: Performed By: #### C BC #### [facility] [address] [place] [address] Dr. Yisel Liu Basophils/100 WBC (Bld) 0.2 % Normal 0.2-2.0 [facility] Comment on above: Performed By: #### C BC #### [facility] [address] [place] [address] Dr. Yisel Liu EO # 0.1 103/ul Normal 0.0-0.7 [facility] Comment on above: Performed By: #### C BC #### [facility] [address] [place] [address] Dr. Yisel Liu Eosinophils/100 WBC (Bld) 0.7 % Critically low 0.9-7.0 [facility] Comment on above: Performed By: #### C BC #### [facility] [address] [place] [address] Dr. Yisel Liu Erythrocyte distribution width (RBC) [Ratio] 17.0 % Critically high 11.0-15.0 [facility] Comment on above: Performed By: #### C BC #### [facility] [address] [place] [address] Dr. Yisel Liu Hematocrit (Bld) [Volume fraction] 33.1 % Critically low 36.0-48.0 [facility] Comment on above: Performed By: #### C BC #### [facility] [address] [place] [address] Dr. Yisel Liu Hemoglobin (Bld) [Mass/Vol] 10.0 g/dL Critically low 12.0-16.0 [facility] Comment on above: Performed By: #### C BC #### [facility] [address] [place] [address] Dr. Yisel Liu IG # 0.08 10e3/ul Critically high 0.00-0.03 [facility] Comment on above: Performed By: #### C BC #### [facility] [address] [place] [address] Dr. Yisel Liu IG % 0.9 % Critically high 0.0-0.5 [facility] Comment on above: Performed By: #### C BC #### [facility] [address] [place] [address] Dr. Yisel Liu LYMPH # 0.8 103/ul Critically low 1.2-3.8 The [facility] Comment on above: Performed By: #### C BC #### [facility] [address] [address] [address] iYsel Liu Lymphocytes/100 WBC (Bld) 9.2 % Critically low 20.5-60.0 [facility] Comment on above: Performed By: #### C BC #### [facility] [address] [address] [address] Yisel Liu MANUAL DIFF REQ NO Normal [facility] Comment on above: Performed By: #### C BC #### [facility] [address] [place] [address] Dr. Yisel Liu MCH (RBC) [Entitic mass] 28.3 pg Normal 26.7-34.0 [facility] Comment on above: Performed By: #### C BC #### [facility] [address] [place] [address] Dr. Yisel Liu MCHC (RBC) [Mass/Vol] 30.2 g/dL Normal 29.9-35.2 [facility] Comment on above: Performed By: #### C BC #### [facility] [address] [place] [address] Dr. Yisel Liu MCV (RBC) [Entitic vol] 93.8 fL Normal 81.0-99.0 [facility] Comment on above: Performed By: #### C BC #### [facility] [address] [place] [address] Dr. Yisel Liu MONO # 0.8 103/ul Normal 0.3-0.8 [facility] Comment on above: Performed By: #### C BC #### [facility] [address] [place] [address] Dr. Yisel Liu Monocytes/100 WBC (Bld) 8.7 % Normal 1.7-12.0 [facility] Comment on above: Performed By: #### C BC #### [facility] [address] [place] [address] Dr. Yisel Liu NEUT # 6.9 103/ul Critically high 1.4-6.5 [facility] Comment on above: Performed By: #### C BC #### [facility] [address] [address] [address] Yisel Liu Neutrophils/100 WBC (Bld) 80.3 % Critically high 43.0-75.0 [facility] Comment on above: Performed By: #### C BC #### [facility] [address] [address] [address] Yisel Liu Platelet mean volume (Bld) [Entitic vol] 8.8 fL Critically low 9.5-13.5 [facility] Comment on above: Performed By: #### C BC #### [facility] [address] [address] [address] Yisel Liu PLT 269 103/ul Normal 150-450 [facility] Comment on above: Performed By: #### C BC #### [facility] [address] [address] [address] Yisel Liu RBC 3.53 106/ul Critically low 4.20-5.40 [facility] Comment on above: Performed By: #### C BC #### [facility] [address] [address] [address] Yisel Liu WBC 8.7 103/ul Normal 4.0-11.0 [facility] Comment on above: Performed By: #### C BC #### [facility] [address] [address] [address] HEAD WO CONon [...] MUJICA Date: 2022-02-22 06:27 Normal [facility] CTA CHEST WO W CONon 022 [...] TURNER Date: 2022-02-22 08:00 Normal [facility] CULTURE BLOODon 02-22-2022 Microscopic examination of blood, culture Culture Observations: NO GROWTH AT 5 DAYS. Normal [facility] Comment on above: Performed By: #### D IG #### [facility] [address] [place] [address] Dr. Yisel Liu Covid-19 PCR ([facility])on 12-0 4-2022 SARS-CoV-2 (COVID-19) RNA JACINTA+probe Ql (Unsp spec) Not detected Normal NOT DETECTED [facility] Comment on above: Result Comment: When [...] for this test is supported by the [place] of Health and Human Service's declaration that [...] Performed By: #### C BC #### [facility] [address] [place] [address] Dr. Yisel Liu DIGOXINon 02-22-2022 DIG 0.5 ng/mL Critically low 0.9-2.0 [facility] Comment on above: Performed By: #### D IG #### [facility] [address] [place] [address] Dr. Yisel Liu ER URINE PROFILEon 2 Bilirubin Ql (U) Negative Normal NEGATIVE [facility] Comment on above: Performed By: #### P HVEN #### [facility] [address] [place] [address] Dr. Yisel Liu Clarity (U) CLEAR Normal CLEAR [facility] Comment on above: Performed By: #### P HVEN #### [facility] [address] [place] [address] Dr. Yisel Liu Color (U) YELLOW Normal YELLOW [facility] Comment on above: Performed By: #### P HVEN #### [facility] [address] [place] [address] Dr. Yisel Liu ERUNGUYỄN A micrscopic examination will be performed if indicated. Normal [facility] Comment on above: Performed By: #### P HVEN #### [facility] [address] [address] [address] Yisel Liu Glucose Ql (U) Negative Normal NEGATIVE [facility] Comment on above: Performed By: #### P HVEN #### [facility] [address] [place] [address] Dr. Yisel Liu Hemoglobin Ql (U) Negative Normal NEGATIVE [facility] Comment on above: Performed By: #### P HVEN #### [facility] [address] [address] [address] Yisel Liu Ketones Ql (U) TRACE Abnormal NEGATIVE [facility] Comment on above: Performed By: #### P HVEN #### [facility] [address] [place] [address] Dr. Yisel Liu LEUKOCYTES TRACE Abnormal NEGATIVE [facility] Comment on above: Performed By: #### P HVEN #### [facility] [address] [place] [address] Dr. Yisel Liu Nitrite Ql (U) Positive Abnormal NEGATIVE [facility] Comment on above: Performed By: #### P HVEN #### [facility] [address] [place] [address] Dr. Yisel Liu pH (U) 5.5 [pH] Normal 5-9 [facility] Comment on above: Performed By: #### P HVEN #### [facility] [address] [place] [address] Dr. Yisel Liu SPEC GRAVITY >=1.030 Abnormal 1.005-<=1.025 [facility] Comment on above: Performed By: #### P HVEN #### [facility] [address] [place] [address] Dr. Yisel Liu UA PROTEIN TRACE Normal NEGATIVE/ TRACE [facility] Comment on above: Performed By: #### P HVEN #### [facility] [address] [place] [address] Dr. Yisel Liu UR MICRO IND INDICATED Normal [facility] Comment on above: Performed By: #### P HVEN #### [facility] [address] [place] [address] Dr. Yisel Liu Urobilinogen Qn (U) 1.0 {Krystian'U}/dL Normal 0.2 - 1. 0 [facility] Comment on above: Performed By: #### P HVEN #### [facility] [address] [place] [address] Dr. Yisel Liu INFLUENZA A AND B AGon 02-22 INFLUBNEGH SEE BELOW Normal [facility] Comment on above: Result Comment: Nega tive for Flu B protein antigen. Infection due to Flu B cannot be ruled out. Flu B antigen in the sample may be below the detection limit of the test. Performed By: #### C MP, BNP #### [facility] [address] [place] [address] Dr. Yisel Liu INFLUENZA A AG Positive Abnormal NEGATIVE SEE COMMENT [facility] Comment on above: Performed By: #### C MP, BNP #### [facility] [address] [place] [address] Dr. Yisel Liu INFLUENZA B AG Negative Normal NEGATIVE SEE COMMENT [facility] Comment on above: Performed By: #### C MP, BNP #### [facility] [address] [place] [address] Dr. Yisel Liu INFLUPOSH SEE BELOW Normal [facility] Comment on above: Result Comment: NOTE : Live attenuated influenzae vaccine viruses can cause a positive result for a rapid influenza diagnostic test if administered up to 7 days prior to rapid testing. Performed By: #### C MP, BNP #### [facility] [address] [place] [address] Dr. Yisel Liu INTERNAL CONTROLS Within Normal Limits Normal Wi thin Normal Limits [facility] Comment on above: Performed By: #### C MP, BNP #### [facility] [address] [place] [address] Dr. Yisel Liu LACTATE/LACTIC ACIDon 2021 Lactate [Moles/Vol] 4.1 mmol/L Critically high 0.4-1.9 [facility] Comment on above: Performed By: #### C MP, BNP #### [facility] [address] [address] [address] Yisel Liu Lactate [Moles/Vol] 3.3 mmol/L Critically high 0.4-1.9 [facility] Comment on above: Performed By: #### C BC #### [facility] [address] [address] [address] Yisel Liu Lactate [Moles/Vol] 3.2 mmol/L Critically high 0.4-1.9 [facility] Comment on above: Performed By: #### C BC #### [facility] [address] [place] [address] Dr. Yisel Liu MAGNESIUMon 02-22-2022 Magnesium [Mass/Vol] 1.6 mg/dL Critically low 1.8-2.4 [facility] Comment on above: Performed By: #### C BC #### [facility] [address] [place] [address] Dr. Yisel Liu OCC BLD IMMUNOASSAYon 2021 OCCULT BLOOD Negative Normal NEGATIVE [facility] Comment on above: Performed By: #### C BC #### [facility] [address] [place] [address] Dr. Yisel Liu PH VENOUS BLOODon 02-22-2022 PCO2 VENOUS 44.3 mmHg Normal 40.0-52.0 [facility] Comment on above: Performed By: #### C MP, BNP #### [facility] [address] [place] [address] Dr. Yisel Liu pH VENOUS 7.410 Normal 7.330-7.430 [facility] Comment on above: Performed By: #### C MP, BNP #### [facility] [address] [place] [address] Dr. Yisel Liu POINT OF CARE GLUCOSEon Glucose [Mass/Vol] 313 mg/dL Critically high [address] [place] [address] Comment on above: Performed By: #### P OCGLUC #### [facility] [address] [place] [address] Dr. Yisel Liu Glucose [Mass/Vol] 240 mg/dL Critically high [address] [place] [address] Comment on above: Performed By: #### C MP, BNP #### [facility] [address] [address] [address] Yisel Liu Glucose [Mass/Vol] 226 mg/dL Critically high 74-106 [facility] Comment on above: Performed By: #### C MP, BNP #### [facility] [address] [address] [address] Yisel Liu PROF CHEM 8 (BAS METB)on Anion gap [Moles/Vol] 11.2 mmol/L Normal [facility] Comment on above: Performed By: #### D IG #### [facility] [address] [place] [address] Dr. Yisel Liu Calcium [Mass/Vol] 9.0 mg/dL Normal 8.5-10.1 [facility] Comment on above: Performed By: #### D IG #### [facility] [address] [place] [address] Dr. Yisel Liu Chloride [Moles/Vol] 100 mmol/L Normal 98-107 [facility] Comment on above: Performed By: #### D IG #### [facility] [address] [place] [address] Dr. Yisel Liu CO2 [Moles/Vol] 32.1 mmol/L Critically high 21.0-32.0 [facility] Comment on above: Performed By: #### D IG #### [facility] [address] [place] [address] Dr. Yisel Liu Creatinine [Mass/Vol] 0.71 mg/dL Normal 0.55-1.02 [facility] Comment on above: Performed By: #### D IG #### [facility] [address] [place] [address] Dr. Yisel Liu EGFR-AF KAZAKH >60 Normal >=60 [facility] Comment on above: Performed By: #### D IG #### [facility] [address] [place] [address] Dr. Yisel Liu EGFR-NON AF KAZAKH >60 Normal >=60 [facility] Comment on above: Performed By: #### D IG #### [facility] [address] [address] [address] Yisel Liu Glucose [Mass/Vol] 118 mg/dL Critically high 74-106 [facility] Comment on above: Performed By: #### D IG #### [facility] [address] [address] [address] Yisel Liu Potassium [Moles/Vol] 4.3 mmol/L Normal 3.5-5.1 [facility] Comment on above: Performed By: #### D IG #### [facility] [address] [address] [address] Yisel Liu Sodium [Moles/Vol] 139 mmol/L Normal 136-145 [facility] Comment on above: Performed By: #### D IG #### [facility] [address] [address] [address] Yisel Liu Urea nitrogen [Mass/Vol] 14.0 mg/dL Normal 7.0-18.0 [facility] Comment on above: Performed By: #### D IG #### [facility] [address] [address] [address] Yisel Liu Urea nitrogen/Creatinine [Mass ratio] 19.7 mg/mg Normal [facility] Comment on above: Performed By: #### D IG #### [facility] [address] [address] [address] Yisel Liu T4on 02-22-2022 T4 [Mass/Vol] 9.40 ug/dL Normal 4.80-13.90 [facility] Comment on above: Performed By: #### C BC #### [facility] [address] [address] [address] Yisel Liu TSHon 02-22-2022 TSH 1.438 uIU/mL Normal 0.358-3.740 [facility] Comment on above: Performed By: #### C BC #### [facility] [address] [address] [address] Yisel Liu URINE MICROSCOPIC ONLYon BACTERIA LARGE Abnormal NONE SEEN [facility] Comment on above: Performed By: #### P HVEN #### [facility] [address] [address] [address] Yisel Liu Bacteria identified Cx Nom (U) INDICATED Normal [facility] Comment on above: Performed By: #### P HVEN #### [facility] [address] [place] [address] Dr. Yisel Liu CAST NONE SEEN Normal NONE SEEN [facility] Comment on above: Performed By: #### P HVEN #### [facility] [address] [place] [address] Dr. Yisel Liu Crystals LM Nom (Urine sed) NONE SEEN Normal NONE SEEN [facility] Comment on above: Performed By: #### P HVEN #### [facility] [address] [place] [address] Dr. Yisel Liu Epithelial cells LM Ql (Urine sed) FEW Abnormal NONE SEEN /RARE [facility] Comment on above: Performed By: #### P HVEN #### [facility] [address] [place] [address] Dr. Yisel Liu MUCOUS TRACE Abnormal NONE SEEN [facility] Comment on above: Performed By: #### P HVEN #### [facility] [address] [place] [address] Dr. Yisel Liu RBC 0-2 Normal 0-2 [facility] Comment on above: Performed By: #### P HVEN #### [facility] [address] [place] [address] Dr. Yisel Liu WBC (U) [#/Vol] /uL Abnormal NONE SEEN [facility] Comment on above: Performed By: #### P HVEN #### [facility] [address] [place] [address] Dr. Yisel Liu XR CHEST 1 Von [...] by: ANUSHKA FLANAGAN Date: 2022-02-22 07:17 Normal [facility] Vital Signs Date Time Vital Sign Value Performing Clinician Facility 07-13-2024 13:04-0400 Body height 165.1 cm Severo Brown DPM Work Phone: [facility] 07-13-2024 13:04-0400 Body mass index (BMI) [Ratio] 30.62 kg/m2 Severo Brown DPM Work Phone: [facility] 07-13-2024 13:04-0400 Body weight 83.46 kg Severo Brown DPM Work Phone: [facility] 07-13-2024 13:04-0400 Respiratory rate 16 /min Severo Brown DPM Work Phone: [facility] 05-04-2024 13:40-0500 Body height 165.1 cm Severo Brown DPM Work Phone: [facility] 05-04-2024 13:40-0500 Body mass index (BMI) [Ratio] 30.62 kg/m2 Severo Brown DPM Work Phone: [facility] 05-04-2024 13:40-0500 Body weight 83.46 kg Severo Brown DPM Work Phone: [facility] 05-04-2024 13:40-0500 Respiratory rate 18 /min Sveero Brown DPM Work Phone: [facility] 02-24-2024 13:36-0500 Body height 165.1 cm Severo Brown DPM Work Phone: [facility] 02-24-2024 13:36-0500 Body mass index (BMI) [Ratio] 30.62 kg/m2 Severo Brown DPM Work Phone: [facility] 02-24-2024 13:36-0500 Body weight 83.46 kg Severo Brown DPM Work Phone: [facility] 02-24-2024 13:36-0500 Respiratory rate 16 /min Severo Milton DPM Work Phone: [facility] 02-03-2024 14:28-0500 Body height 165.1 cm Severo Milton DPM Work Phone: [facility] 02-03-2024 14:28-0500 Body mass index (BMI) [Ratio] 30.62 kg/m2 Severo Milton DPM Work Phone: [facility] 02-03-2024 14:28-0500 Body weight 83.46 kg Severo Milton DPM Work Phone: [facility] 02-03-2024 14:28-0500 Diastolic blood pressure 79 mm[Hg] Severo Milton DPM Work Phone: [facility] 02-03-2024 14:28-0500 Heart rate 82 /min Severo Milton DPM Work Phone: [facility] 02-03-2024 14:28-0500 Systolic blood pressure 129 mm[Hg] Severo Milton DPM Work Phone: [facility] 01-13-2024 13:56-0400 Body height 165.1 cm Severo Milton DPM Work Phone: [facility] 01-13-2024 13:56-0400 Body mass index (BMI) [Ratio] 30.62 kg/m2 Severo Milton DPM Work Phone: [facility] 01-13-2024 13:56-0400 Body weight 83.46 kg Severo Milton DPM Work Phone: [facility] 01-13-2024 13:56-0400 Diastolic blood pressure 77 mm[Hg] Severo Milton DPM Work Phone: [facility] 01-13-2024 13:56-0400 Heart rate 72 /min Severo Milton DPM Work Phone: [facility] 01-13-2024 13:56-0400 Systolic blood pressure 125 mm[Hg] Severo Milton DPM Work Phone: [facility] 09-09-2023 16:21-0400 Body temperature 98.2 [degF] Jaguar Cobos MD [facility] 09-09-2023 16:21-0400 Diastolic blood pressure 61 mm[Hg] Jaguar Cobos MD Work Phone[facility] 09-09-2023 16:21-0400 Heart rate 91 /min Jaguar Cobos MD Work Phone[facility] 09-09-2023 16:21-0400 Respiratory rate 18 /min Jaguar Cobos MD Work Phone[facility] 09-09-2023 16:21-0400 SaO2% (BldA) [Mass fraction] 97 % Jaguar Cobos MD Work Phone[facility] 09-09-2023 16:21-0400 Systolic blood pressure 101 mm[Hg] Jaguar Cobos MD Work Phone: [facility] 09-08-2023 15:07-0400 Body height 167.6 cm Jaguar Cobos MD Work Phone: [facility] [employer] 09-08-2023 15:07-0400 Body mass index (BMI) [Ratio] 29.89 kg/m2 Jaguar Cobos MD Work Phone: [facility] [employer] 09-08-2023 15:07-0400 Body weight 84 kg Jaguar Cobos MD Work Phone[facility] Encounters Encounter Date Encounter Type Care Provider Facility Start: 07-13-2024 End: 07-13-2024 Bamboo flowsheet Severo Milton DPM Work Phone: [facility] Start: 07-13-2024 End: 07-13-2024 Bamboo flowsheet Severo Milton DPM Work Phone: [facility] Start: 07-13-2024 End: 07-13-2024 Office outpatient visit 15 minutes Severo Milton DPM Work Phone: [facility] Comment on above: Dry gangrene (CMS/HC C) (Primary Dx); Diabetes mellitus due to underlying condition with diabetic polyneuropathy, unspecified whether retirement insulin use (CMS/HCC); Pain due to onychomycosis of toenails of both feet Start: 07-13-2024 End: 07-13-2024 ambulatory SEVERO MILTON Not Available Start: 05-04-2024 End: 05-04-2024 Office outpatient visit 15 minutes Severo Milton DPM Work Phone: [facility] Comment on above: Dry gangrene (CMS/HC C) (Primary Dx); Diabetes mellitus due to underlying condition with diabetic polyneuropathy, unspecified whether emt intermediate insulin use (CMS/HCC); Pain due to onychomycosis of toenails of both feet Start: 05-04-2024 End: 05-04-2024 ambulatory SEVERO MILTON Not Available Start: 04-18-2024 End: 04-18-2024 ambulatory [facility] Start: 04-04-2024 ambulatory [facility] Start: 03-30-2024 End: 03-30-2024 ambulatory Mariah Prado [facility] Work Phone: Start: 03-30-2024 End: 03-30-2024 Departed Referred Mariah Prado PA-C Work Phone: [facility] Start: 02-24-2024 End: 02-24-2024 Bamboo flowsheet Severo Milton DPM Work Phone: [facility] Start: 02-24-2024 End: 02-24-2024 Bamboo flowsheet Severo Milton DPM Work Phone: [facility] Start: 02-24-2024 End: 02-24-2024 Office outpatient visit 15 minutes Severo Mliton DPM Work Phone: [facility] Comment on above: Diabetes mellitus du e to underlying condition with diabetic polyneuropathy, unspecified whether retirement insulin use (CMS/HCC) (Primary Dx); Foot ulcer, left, with fat layer exposed (CMS/HCC) Start: 02-24-2024 End: 02-24-2024 ambulatory SEVERO MILTON Not Available Start: 02-03-2024 End: 02-03-2024 Patient encounter procedure Severo Milton DPM Work Phone: [facility] Comment on above: Diabetes mellitus du e to underlying condition with diabetic polyneuropathy, unspecified whether retirement insulin use (CMS/HCC) (Primary Dx); Foot ulcer, left, with fat layer exposed (CMS/HCC) Start: 02-03-2024 End: 02-03-2024 ambulatory SEVERO MILTON Not Available Start: 02-03-2024 End: 02-03-2024 Bamboo flowsheet Severo Milton DPM Work Phone: [facility] Start: 02-03-2024 End: 02-03-2024 Bamboo flowsheet Severo Milton DPM Work Phone: [facility] Start: 01-27-2024 End: 01-27-2024 ambulatory CIARAN PABON [facility] Start: 01-13-2024 End: 01-13-2024 ambulatory SEVERO MILTON Not Available Start: 01-13-2024 End: 01-13-2024 Office outpatient new 30 minutes Severo Milton DPM Work Phone: [facility] Comment on above: Foot ulcer, left, wi th fat layer exposed (CMS/HCC) (Primary Dx); Diabetes mellitus due to underlying condition with diabetic polyneuropathy, unspecified whether emt intermediate insulin use (CMS/HCC); Pain due to onychomycosis of toenails of both feet Start: 12-28-2023 End: 12-28-2023 ambulatory CIARAN PABON [facility] Start: 11-05-2023 End: 11-05-2023 ambulatory KAYLAH SIMMONS [facility] Start: 09-06-2023 End: 09-09-2023 Evaluation and management of inpatient DEREK DIETRICH [facility] Comment on above: Congestive heart lauri lure, [...] 09-07-2023 Glucose blood reagen t strip Luis [employer] DO Work Phone: Start: 09-07-2023 Echo tthrc r-t 2d w/wom-mode compl spec&colr d Solomon Nadir DO Work Phone: Start: 09-07-2023 Glucose blood reagen t strip Luis [employer] DO Work Phone: Start: 09-07-2023 Glucose blood reagen t strip Luis Roth [employer] DO Work Phone: Start: 09-07-2023 BASIC METABOLIC [...] ferritin Marlene Orantes MD Work Phone: Start: 1 End: 09-06-2023 Basic metabolic panel calcium total Jaguar Cobos MD Work Phone: Start: 09-06-2023 Ecg routine ecg w/le ast 12 lds i&r only Jaguar Cobos MD Work Phone: Plan of Treatment Date Care Activity Detail Author Start: 07-13-2024 End: 07-13-2024 Patient encounter procedure 07/13/2024 1:20 PM EDT Office Visit [facility] [address] [facility] [address] [place] [phone] Severo Milton DPM [address] [address] Dry gangrene (CMS/HCC) (Primary Dx); Diabetes mellitus due to underlying condition with diabetic polyneuropathy, unspecified whether retirement insulin use (CMS/HCC); Pain due to onychomycosis of toenails of both feet [facility] Comment on above: Dry gangrene (CMS/HC C) (Primary Dx); Diabetes mellitus due to underlying condition with diabetic polyneuropathy, unspecified whether retirement insulin use (CMS/HCC); Pain due to onychomycosis of toenails of both feet Start: 03-30-2024 Urine culture [facility] Start: 03-30-2024 Bacteria identified in Urine by Culture Urine Culture [facility] Start: 02-24-2024 End: 02-24-2024 Patient encounter procedure [facility] Comment on above: Diabetes mellitus du e to underlying condition with diabetic polyneuropathy, unspecified whether emt intermediate insulin use (CMS/HCC) (Primary Dx); Foot ulcer, left, with fat layer exposed (CMS/HCC) Start: 02-03-2024 End: 02-03-2024 Patient encounter procedure 02/03/2024 2:50 PM EST Office Visit [facility] [address] [facility] [address] [place] [phone] Severo Milton DPM [address] [address] [facility] Start: 10-21-2023 Influenza vaccination Flu vacc ine (Season Ended) [facility] Start: 09-06-2023 Annual Wellness Visi t (Medicare) Annual Wellness Visit (Medicare) [facility] Start: 2004 Respiratory Syncytia l Virus (RSV) or age 60 yrs+ (1 - 1-dose 60+ series) Respiratory Syncytial Virus (RSV) or age 60 yrs+ (1 - 1-dose 60+ series) [facility] Start: 09-17-1999 Screening for osteoporosis DEXA (modify frequency per FRAX score) [facility] [employer] Start: 1994 Shingles vaccine (1 of 2) Shingles vaccine (1 of 2) [facility] [employer] Start: 1962 Hepatitis C screening Hepatitis C sc reen [facility] [employer] Start: 1956 Depression Screen Depression Screen [facility] [employer] Start: 1954 Lipid panel Lipids [facility] [employer] Start: 1950 Pneumococcal 65+ yea rs Vaccine (1 of 2 - PCV) Pneumococcal 65+ years Vaccine (1 of 2 - PCV) [facility] [employer] Start: 03-18-1945 COVID-19 Vaccine (#1) COVID-19 Vacci ne (#1) [facility] Continuous pulse oximetry Pulse oximetry, continuous Respiratory Care Routine Every 4hr until discontinued starting 09/07/2023 [facility] [employer] Comment on above: Every 4hr until disc ontinued starting 09/07/2023 Glucose [Mass/volume ] in Serum or Plasma [facility] Comment on above: 4X Daily (AC & HS) u ntil discontinued starting 09/06/2023 As Needed until disc ontinued starting 09/06/2023 Nasal Cannula Oxygen Nasal Cannu la Oxygen Respiratory Care Routine Daily until discontinued starting 09/07/2023 [facility] Comment on above: Daily until disconti nued starting 09/07/2023 Oxygen therapy [[facility] Data Set] Initiate Oxygen Therapy Protocol Respiratory Care Routine As Needed until discontinued starting 09/06/2023 [facility] Comment on above: As Needed until disc ontinued starting 09/06/2023 End: 09-08-2023 Wound ostomy eval Wound ostomy eval Wound Ostomy Routine One Time for 1 Occurrences starting 09/08/2023 until 09/08/2023 [facility] Comment on above: One Time for 1 Occur rences starting 09/08/2023 until 09/08/2023 End: 09-08-2023 Wound ostomy eval and treat Wound ostomy eval and treat Wound Ostomy Routine One Time for 1 Occurrences starting 09/08/2023 until 09/08/2023 [facility] AG[facility]AR [facility] Comment on above: One Time for 1 Occur rences starting 09/08/2023 until 09/08/2023 Payers Date Payer Category Payer Self-pay 2018 Medicaid [place]ICAID [place] [id number] 2018 Medicaid [id number] 2003 Medicare MEDICARE [id number] 1959 Medicaid [id number] 1959 Medicare [id number] 1945 Unknown [id number] 1944 Unknown [id number] 1944 Unknown [id number] 1944 Unknown [id number] 1944 Unknown [id number] 1944 Unknown [id number] 1944 Unknown [id number] Unknown [id number] Social History Date Type Detail Facility Start: 01-13-2024 Tobacco smoking stat [facility] Never smoked tobacco [facility] Start: 01-13-2024 Tobacco use and exposure Smokeless tobacco non-user [facility] Start: 01-13-2024 End: 07-13-2024 Alcoholic beverage intake Defer [facility] Start: 01-13-2024 End: 05-04-2024 History of Social function [facility] [employer] Start: 01-13-2024 End: 05-04-2024 Tobacco use panel [facility] [employer] Start: 1945 Sex assigned at Not on file B ON [employer] Tobacco smoking stat [facility] Unknown if ever smoked [facility] Start: 04-01-2024 Sex Female (finding) [facility] Start: 1945 Sex Assigned At Female F [facility] Physical abuse Denies [facility] [id number] [facility] Clinical Notes 09-09-2023 to 07-13-2024 Severo [...] Diagnosis Date COPD (chronic obstructive pulmonary disease) ([facility]) Diabetes ([facility]) Hypertension ([facility]) Medications: Current Outpatient Medications: atorvastatin (Lipitor) 20 [...] Partner Violence: Unknown (05/13/2023) Received from [facility] Safety & Environment Fear of Current or [...] and negative PT pedal pulses NEURO: 5.07 [place] Fadumo monofilament test diminished to digits and forefoot bilaterally 125Hz tuning fork diminished to 1st MPJ bilaterally ORTHO: Positive pain on palpation to toenails of the left 1,2,3,4,5 toes and right 1,2,3,4,5 toes ASSESSMENT 1. 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 Diabetes mellitus due to underlying condition with diabetic polyneuropathy, unspecified whether retirement insulin use ([facility]) 3. Pain due to onychomycosis of toenails of both feet PLAN Continue with Iodosorb it in mcc daily with dry sterile dressing Debride nails [...] Severo Milton DPM documented in this encounter [facility] 05-04-2024 History of Present illness Narrative Patient: Starla Sweeney : 1945 PCP: Christiano Peters MD SUBJECTIVE Patient present today for follow up of ulceration/dry gangrene to left and right bilateral great digits of feet. Pt denies any n/f/v/c. Patient states that they have been using the following treatments for the ulcer of iodosorb in ID Pt is a DM2. She also has [...] Diagnosis Date COPD (chronic obstructive pulmonary disease) ([facility]) Diabetes ([facility]) Hypertension ([facility]) Medications: Current Outpatient Medications: atorvastatin (Lipitor) 20 [...] Violence: Unknown (05/13/2023) Received from [facility] [place] Safety & Environment Fear of Current [...] and negative PT pedal pulses NEURO: 5.07 [place] Fadumo monofilament test diminished to digits and forefoot bilaterally 125Hz tuning fork diminished to 1st MPJ bilaterally ORTHO: Positive pain on palpation to toenails of the left 1,2,3,4,5 toes and right 1,2,3,4,5 toes ASSESSMENT 1. Diabetes mellitus due to underlying condition with diabetic polyneuropathy, unspecified whether retirement insulin use ([facility]) 2. Pain due to onychomycosis of toenails of both feet 3. Dry gangrene ([facility]) PLAN Continue with Iodosorb it in mcc daily with dry sterile dressing Debride nails [...] Severo Milton DPM documented in this encounter [facility] 04-18-2024 Note NM Electrophysiology Consult Note NM Cardiology [facility] Reason for visit: Patient here [...] Diagnosis Date Abnormal ECG Arrhythmia Atrial fibrillation ([facility]) CHF (congestive heart failure) ([facility]) Coronary artery disease Diabetes ([facility]) Stroke ([facility]) PSH: No past surgical history on file. SH: Social Determinants of Health Tobacco Use: Low Risk (02/24/2024) Received from [facility] Patient History Smoking Tobacco Use: Never Smokeless Tobacco Use: Never Passive Exposure: Not on file Alcohol Use: Not on file Financial Resource Strain: Not on file Food Insecurity: Not on file Transportation Needs: Not on file Physical Activity: Not on file Stress: Not on file Social Connections: Not on file Intimate Partner Violence: Unknown (05/13/2023) [place] Safety & Environment Fear of Current or [...] no lesions on (more content not included)... [facility] 02-24-2024 History of Present illness Narrative Patient: [...] Diagnosis Date COPD (chronic obstructive pulmonary disease) ([facility] Diabetes ([facility]) Hypertension ([facility]) Medications: Current Outpatient Medications: atorvastatin (Lipitor) 20 [...] Violence: Unknown (05/13/2023) Received from [facility] [place] Safety & Environment Fear of Current [...] and negative PT pedal pulses NEURO: 5.07 [place] Fadumo monofilament test diminished to digits and forefoot bilaterally 125Hz tuning fork diminished to 1st MPJ bilaterally ORTHO: Positive pain on palpation to nails 1 through 10 ASSESSMENT 1. Diabetes mellitus due to underlying condition with diabetic polyneuropathy, unspecified whether emt intermediate insulin use ([facility]) 2. Foot ulcer, left, with fat layer exposed ([facility]) PLAN Continue with Iodosorb it in mcc daily with dry sterile dressing and has black eschar and needs to be protected otherwise appears to be healing and follow up in 2 months Severo Milton DPM documented in this encounter [facility] 02-03-2024 History of Present illness Narrative [...] Diagnosis Date COPD (chronic obstructive pulmonary disease) ([facility]) Diabetes ([facility]) Hypertension ([facility]) Medications: Current Outpatient Medications: atorvastatin (Lipitor) 20 [...] Partner Violence: Unknown (05/13/2023) Received from [facility] Safety & Environment Fear of Current or [...] and negative PT pedal pulses NEURO: 5.07 [place] F[employer] monofilament test diminished to digits and forefoot bilaterally 125Hz tuning fork diminished to 1st MPJ bilaterally ORTHO: Positive pain on palpation to nails 1 through 10 ASSESSMENT 1. Diabetes mellitus due to underlying condition with diabetic polyneuropathy, unspecified whether emt intermediate insulin use ([facility]) 2. Foot ulcer, left, with fat layer exposed ([facility]) PLAN Patient to have mcc apply Iodosorb every other day with dry [...] Severo Milton DPM documented in this encounter [facility] 01-27-2024 Note DIRECT CARDIOVERSION PROCEDURE NOTE [...] continue Amiodarone. Ciaran Pabon MD Cardiac Electrophysiology [facility] 01-27-2024 Note Patient: Kelly Bonilla room Procedure Information Date/Time: 01/27/24 1200 Procedure: Cardioversion - PC APPROVED Location: [facility] / [facility] (Cath) Providers: Ciaran Pabon MD Clinical information reviewed: Allergies OB Status Physical Exam Airway Mallampati: II TM distance: >3 FB Neck ROM: full Cardiovascular Dental Pulmonary Abdominal Anesthesia Plan ASA 3 CSE Anesthetic plan and risks discussed with patient. Use of blood products discussed with patient who. Additional Equipment Requests [facility] 01-13-2024 History of Present illness Narrative Patient: [...] for the past 2 months had nearby mcc. Patient denies n/f/v/c. She denies any pain [...] Violence: Unknown (05/13/2023) Received from [facility] [place] Safety & Environment Fear of Current [...] and negative PT pedal pulses NEURO: 5.07 [place] F[employer] monofilament test diminished to digits and forefoot bilaterally 125Hz tuning fork diminished to 1st MPJ bilaterally ORTHO: Positive pain on palpation to nails 1 through 10 ASSESSMENT 1. Diabetes mellitus due to underlying condition with diabetic polyneuropathy, unspecified whether emt intermediate insulin use ([facility]) 2. Pain due to onychomycosis of toenails of both feet 3. Foot ulcer, left, with fat layer exposed ([facility]) PLAN Discussed proper foot care with patient today. Debride nails in length and thickness digits 1 through 10 Patient educated today on proper diabetic foot care including monitoring feet daily for any signs of infection openings in the skin or irregularities to both feet. Patient had a diabetic neurological exam today to both their feet and discussed proper shoe gear. Patient to have mcc apply Iodosorb every other day with dry [...] Severo Milton DPM documented in this encounter [facility] 12-28-2023 Note NM Electrophysiology Consult Note NM Cardiology - [facility] Reason for visit: Afib HPI: [...] Diagnosis Date Abnormal ECG Arrhythmia Atrial fibrillation ([facility]/HCC) CHF (congestive heart failure) ([facility]/HCC) Coronary artery disease Diabetes ([facility]/HCC) Stroke ([facility]/HCC) PSH: No past surgical history on file. [...] on file Intimate Partner Violence: Unknown (05/13/2023) [place] Safety & Environment Fear of Current or [...] by mouth in the morning. [DISCONTINUED] artificial tear,qcvxy-fvg-vyc, 0.1-0.3-0.2 % drops 1 drop. [DISCONTINUED] clobetasol [...] dizziness and light-headedness. (more content not included)... [facility] 11-05-2023 Note Cardiology Clinic No te Chief Complaint: New patient HPI: Starla Sweeney is a 78 y.o. female who has a past medical history of Diabetes (CMS/[facility])., afib, CAD s/p PCI, and HFpEF. Patient [...] has a past medical history of Diabetes ([facility]). Surgical History She has no past surgical [...] tablets by mouth in the morning. artificial tear,qxjew-upz-tjo, 0.1-0.3-0.2 % drops 1 drop. atorvastatin (Lipitor) [...] with Paroxysmal a (more content not included)... [facility] 09-09-2023 History of Present illness Narrative Pt discharged safely with all personal belongings including charging cord. Report called to Kayley at [facility]. All questions answered in full. Images from the original note were not included. [facility] Progress Note Date: 09/09/2023 Patient name: Starla [...] Meds: metoprolol tartrate 25 mg Oral BID znwttqgd-dwgbyyvued-gkbsvsmop Topical BID carboxymethylcellulose PF 1 drop Both [...] and to follow up outpatient with primary manager fast food. [facility]. [phone] Images from the original note were not included. [facility] Office: [phone] Yayo Scherer DO, Derek Frias DO, Ilan [...] Suarez CNP, Kayley Valente CNP, Radha Garcia, LOAD BLOCKER, Sofia [place], SPARKER AND PATCHER, Linda Shirley, HARDY, Roselia Vasquez, LOAD BLOCKER, Katarina Perez, LOAD BLOCKER [facility] IN-PATIENT SERVICE [facility] Progress Note 09/09/2023 12:43 PM Name: Starla Sweeney Acct: [id number] Room: IP Day: 3 Admit Date: 09/06/2023 [...] Meds: metoprolol tartrate 25 mg Oral BID cpniiflv-prmfwmubad-ctzchrytk Topical BID carboxymethylcellulose PF 1 drop Both [...] , PHART , PH , POCPCO2 , [id number] , PCO2 , POCPO2 , PO2ART , PO2 , POCHCO3 , [id number] , HCO3 , NBEA , PBEA , BEART , BE , THGBART , THB , WQO0GRD , [id number] , [id number] , O2SAT , FIO2 No results found [...] Progress Note PATIENT: STARLA SWEENEY CSN #: [id number] : 1945 ADMIT DATE: 09/06/2023 4:14 PM [...] monitoring. Cardiology consult Thank you, Brice IRVINGS [email or web address] office hours m-f 7-3 Options provided: -- [...] the original note were not included. [facility] Progress Note Date: 09/08/2023 Patient name: Starla [...] Meds: metoprolol tartrate 12.5 mg Oral BID xkstdffb-iegcpcvkud-moyitubwb Topical BID furosemide 20 mg IntraVENous BID [...] function. Continue statin Continue to monitor [facility] [phone] Images from the original note were not included. [facility] Office: [phone] Yayo Scherer DO, Derek Frias DO, Ilan [...] Mir MD, Rahul Hartley MD, Mirta Corbin, LOAD BLOCKER, Jes Willis LOAD BLOCKER, Christiano Ramires, LOAD BLOCKER, Donita Rubio, CARRIE, Katie Quiroz LOAD BLOCKER, Chelsea Goff, LOAD BLOCKER, Shabana Howard, LOAD BLOCKER, Yuli Bentley, LOAD BLOCKER, Verona Harvey, PA-C, Brissa Ackerman, PA-C, Trish Serna, LOAD BLOCKER, Caitlin Christensen, LOAD BLOCKER, Guille Suarez, LOAD BLOCKER, Kayley Vaelnte, LOAD BLOCKER, Radha Garcia, LOAD BLOCKER, Sofia [place], SPARKER AND PATCHER, Linda Shirley, LOAD BLOCKER, Roselia Vasquez, LOAD BLOCKER, Katarina Perez, LOAD BLOCKER [facility] IN-PATIENT SERVICE [facility] Progress Note 09/08/2023 3:34 PM Name: Starla Sweeney Acct: [id number] Room: IP Day: 2 Admit Date: 09/06/2023 [...] her toe was ran over at the [facility] by a aaron lift. Family says its been present for a months. She has not noticed any drainage from her toe. Has not noticed any worsening redness. Medications: Allergies: Allergies Allergen Reactions Sulfa Antibiotics Tetanus Toxoids Current Meds: Scheduled Meds: metoprolol tartrate 12.5 mg Oral BID nvyqbeko-mgdwkbapbl-fksjdzejy Topical BID Gen[employer]al Tears 1 drop Both [...] , PHART , PH , POCPCO2 , DEC4UFI , PCO2 , POCPO2 , PO2ART , PO2 , POCHCO3 , VTD1RZK , HCO3 , NBEA , PBEA , BEART , BE , THGBART , THB , ENN1SZM , KYSQ3LUR , O3SUVALL , O2SAT , FIO2 No results found [...] is currently under the care of a housekeeping staff who, per family, stated a biopsy was not indicated. Left hallux, #2 and #4 wounds, per family, traumatic lacerations believed to be from a Aaron lift. Present for approximately 1 month. Recent use of an unknown ointment per the nursing facility where the patient resides. Review of medication list from [facility] does not list any ointments. Hx of [...] stroke deficit and patient's current mentation. PPP. EARTH BURNER is brisk. Response to treatment: Well tolerated [...] nutritional intake and fluids as able. Consult loading dock hand if needed. Specialty Bed Required : Yes [] Low Air Loss [x] Pressure Redistribution [] Fluid Immersion [] Bariatric [] Total Pressure Relief [] Other: Discharge Plan: From SNF Patient/Caregiver Teaching: Reviewed with family at bedside will update physician and seek orders for imaging or ointments as he deems appropriate. Follow up to outpatient housekeeping staff as scheduled for concerns of right facial lesion enlargement. Level of patient/caregiver understanding: [] Indicates understanding [] Needs reinforcement [] Unsuccessful [x] Verbal Understanding [] Demonstrated understanding [] No evidence of learning [] Refused teaching [] N/A Contact the Wound molder meat on-call during working hours Wednesday-Wednesday [phone] via [employer] by searching wound under groups and selecting the on-call clinician. Sending messages via individual names will not reach a clinician. [employer] Ii Laborer refer this pt to oncall cardio Dr. Farr, [facility] for HR that has been goes up and down ranges 100-130's afib. [employer] Ii Laborer also informed that the reason pt came here due to bradycardia and pt is on xarelto for the afib. [employer] Ii Laborer refer back patients HR to Dr. Farr for consistent above 110-130's. Afib. Pt is awake.no chest pain. latest Vs Bp 112/55, Hr 122, rr 18 and replied to monitor. [facility] Admission Medication Reconciliation The patient's [...] the patient's home medication list: Added All SMALL ENGINE SPECIALIST medications were added based on faxed medication [...] about this encounter. Thank you. Meenu Enriquez, Service Trainer Images from the original note were not included. [facility] Office: [phone] Yayo Scherer DO, Derek Frias DO, Ilan [...] Ramires CNP, Donita Rubio, CARRIE, Katie Quiroz, LOAD BLOCKER, Chelsea Goff, LOAD BLOCKER, Shabana Howard, LOAD BLOCKER, Yuli Bentley LOAD BLOCKER, Verona Harvey PA-C, Brissa Ackerman PA-C, Trish Serna LOAD BLOCKER, Caitlin Christensen, LOAD BLOCKER, Guille Suarez, LOAD BLOCKER, Kayley Valente, LOAD BLOCKER, Radha Garcia, LOAD BLOCKER, Sofia [place], SPARKER AND PATCHER, Linda Shirley, LOAD BLOCKER, Roselia Vasquez, LOAD BLOCKER, Katarina Perez, LOAD BLOCKER [facility] IN-PATIENT SERVICE [facility] Progress Note 09/07/2023 3:44 PM Name: Starla Sweeney Acct: [id number] Room: IP Day: 1 Admit Date: 09/06/2023 [...] , PHART , PH , POCPCO2 , [id number] , PCO2 , POCPO2 , PO2ART , PO2 , POCHCO3 , [id number] , HCO3 , NBEA , PBEA , BEART , BE , THGBART , THB , [id number] , [id number] , [id number] , O2SAT , FIO2 No results found [...] patient who is a transfer from [facility] with concern for digoxin overdose. At [facility] she was initially bradycardic in the 30s and 40s, digoxin level of 2.6. Patient was given Digibind there and transferred to [place]. Upon my evaluation the patient patient is [...] in ICU. documented in this encounter [facility] 09-09-2023 Hospital Discharge instructions Luis Nguyen DO - 09/09/2023 12:50 PM EDT -Make an appoint with a new primary care physician within 1 week of discharge -Follow-up with your manager fast food for continued management of atrial fibrillation -Monitor [...] Dependent Dressing Dependent Toileting Dependent Feeding Assisted Manager It [facility]isted Med Delivery whole and prefers mixed [...] carbs/meal (1800kcals/day) Routes of Feeding: Oral Liquids: [place] Thick Liquids Daily Fluid Restriction: no Last [...] Readmission: 20 Discharging to Facility/ Agency Name: Address:[facility] Phone: Fax: Dialysis Facility (if applicable) Name: Address: Dialysis Schedule: Phone: Fax: Digital Marketing Strategist/Velocity Shooter signature: PHYSICIAN SECTION Prognosis: Fair Condition at Discharge: Stable Rehab Potential (if transferring to Rehab): Fair Recommended Labs or Other Treatments After Discharge: -Make an appoint with a new primary care physician within 1 week of discharge -Follow-up with your manager fast food for continued management of atrial fibrillation -Monitor glucose adjust regimen as needed -PT OT as tolerated -Repeat labs in 1 week -Recommend consulting wound care for left lower extremity wound Physician Certification: I certify the above information and transfer of Starla Sweeney is necessary for the continuing treatment of the diagnosis listed and that she requires Jail Facility for greater 30 days. Update Admission H&P: No change in H&P PHYSICIAN SIGNATURE: documented in this encounter [facility] 09-09-2023 Hospital course Narrative Images from the original note were not included. [facility] Office: [phone] Yayo Scherer DO, Derek Frias DO, Ilan Askew DO, Tylor Elias DO, Octavia Rodriguez MD, Josselyn Teague MD, Bridgett Doll MD, Jamilah Sibley MD, Vaibhav Castellanos MD, Dayanna Drake MD, Oziel Crisostomo MD, Luis Nguyen DO, Tu oWoten MD, Zohaib Doran MD, Jaguar Scherer DO, [...] Ramires CNP, Donita Rubio, CARRIE, Katie Quiroz LOAD BLOCKER, Chelsea Gfof LOAD BLOCKER, Shabana Howard CNP, Yuli Bentley CNP, NINA NairC, NINA RedmondC, Trish Serna CNP, Caitlin Christensen CNP, Guille Suarez LOAD BLOCKER, Kayley Valente LOAD BLOCKER, Radha Garcia, LOAD BLOCKER, Sofia Miranda, SPARKER AND PATCHER, Linda Shirley, HARDY, Roselia Vasquez CNP, Katarina Perez LOAD BLOCKER [facility] IN-PATIENT SERVICE [facility] Discharge Summary Patient ID: tSarla Sweeney : 1945 ACCOUNT: [id number] Patient's PCP: Derek Major DO Admit Date: [...] of discharge. Discharge plan: Disposition: To a [facility] Physician Follow Up: Derek Major DO [address] [facility] [phone] Schedule an appointment as soon as possible for a visit in 1 week(s) Requiring Further Evaluation/Follow Up POST HOSPITALIZATION/Incidental Findings: -Make an appoint with a new primary care physician within 1 week of discharge -Follow-up with your manager fast food for continued management of atrial fibrillation -Monitor [...] SL tablet Commonly known as: NITROSTAT nystatin [id number] UNIT/GM powder Commonly known as: MYCOSTATIN polyethylene [...] known as: DILACOR XR ergocalciferol 1.25 MG (45115 UT) capsule Commonly known as: ERGOCALCIFEROL estrogens [...] this patient's care. documented in this encounter [facility] Evaluation note Diagnosis Foot ulcer, left, with fat layer exposed (CMS/HCC)- Primary Diabetes mellitus due to underlying condition with diabetic polyneuropathy, unspecified whether emt intermediate insulin use (CMS/HCC) Pain due to onychomycosis of toenails of both feet documented in this encounter [facility] Healthcare[facility] note* Diagnosis Diabetes mellitus due to underlying condition with diabetic polyneuropathy, unspecified whether retirement insulin use (CMS/HCC)- Primary Foot ulcer, left, with fat layer exposed (CMS/HCC) documented in this encounter [facility] Healthcare[facility] note* Diagnosis Diabetes mellitus due to underlying condition with diabetic polyneuropathy, unspecified whether emt intermediate insulin use (CMS/HCC)- Primary Foot ulcer, left, with fat layer exposed (CMS/HCC) documented in this encounter [facility] HealthcareEvaluation noteNo assessment information availablePromedica [facility] Work Phone: Evaluation note* Diagnosis Digoxin [...] unintentional, initial encounter [facility] Diagnosis 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, unspecified whether emt intermediate insulin use (CMS/HCC) Pain due to onychomycosis of toenails of both feet documented in this encounter [facility] Healthcare[facility] note* Diagnosis 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, unspecified whether retirement insulin use (CMS/HCC) Pain due to onychomycosis [...] Documents on File Type Date Recorded Patient Nuclear Criticality Safety Engineer Expl anation ACP-Advance Directive 09/08/2023 2:14 PM P OA Latest Code Status on File Code Status Date Activated Date Inactivated Comments Full Code 09/06/2023 7:46 PM Healthcare Agents on File Name Relationship Healthcare Agent Relationship Communication Christiano Sweeney Healthcare Decision Maker Primary Decis ion Maker Additional Source Comments INFORMATION SOURCE (unrecogn ized section and content) DATE CREATED AUTHOR 02/28/2022 [facility] DATE CREATED AUTHOR AUTHOR'S ORGANIZ ATION 09/15/2023 [facility] DATE CREATED AUTHOR AUTHOR'S ORGANIZ ATION 04/05/2024 [facility] DATE CREATED AUTHOR AUTHOR'S ORGANIZ ATION 04/08/2024 [facility] DATE CREATED AUTHOR AUTHOR'S ORGANIZ ATION 05/15/2024 [facility] DATE CREATED AUTHOR AUTHOR'S ORGANIZ ATION 07/14/2024 [facility] EPIC Reason for Visit (unrecogniz ed section and content) Reason Comments Foot Ulcer Left Gt toe ulcer Reason Comments DM Foot Care Dm Nails Reason Comments Foot Ulcer 3wk chk Reason Comments Bradycardia Reason Comments Foot Ulcer Bl ulcers DM Foot Care Dm nail care Reason Comments DM Foot Care Dm nail care Care Teams (unrecognized sec tion and content) Commercial Energy Rater Relationship Specialty Start Date End Date Christiano Peters MD [employer] [address] [place], [place] [id number] PCP - General Family Medicine 02/24/24 Commercial Energy Rater Relationship Specialty Start Date End Date Christiano Peters MD [employer] [address] [place] [address] PCP - General Family Medicine 02/24/24 Team Status: Inactive Member Role Status Dates Mariah Prado PA-C Attending Provider Active Start: March 30, 2024 End: March 30, 2024 Commercial Energy Rater Relationship Specialty Start Date End Date Derek Major DO [address] [place] [phone] PCP - General Internal Medicine 09/06/23 Commercial Energy Rater Relationship Specialty Start Date End Date Christiano Peters MD [address] [place] [address] PCP - General Family Medicine 02/24/24 Commercial Energy Rater Relationship Specialty Start Date End Date Christiano Peters MD [address] [place] [address] PCP - General Family Medicine 02/24/24 Commercial Energy Rater Relationship Specialty Start Date End Date Christiano Peters MD [address] [place] [address] PCP - General Family Medicine 02/24/24 Goals [...] sodium chloride 0.9 % 250 mL IVPB ([id number]) (CANCELED) 500 mg, IntraVENous, EVERY 24 HOURS, [...] 0824 (Given - Provider: Chanda Washington RN) lamoTRIgine (LAMICTAL) tablet 25 mg [...] SBP <100 and/or HR <60 2100 (Due) sihxxltf-ghwuwehrcu-ltpl myxin (NEOSPORIN) ointment Topical, 2 TIMES DAILY, [...] BE BASED ON THE PRIMARY CLINICAL RECORDS. [employer] provides no warranty or guarantee of the accuracy or completeness of information in this document.
[2024-09-08] MEDS: 0.9 % SODIUM CHLORIDE 1,000 ML 75 ML IV (01:41)
[2024-09-08] MEDS: VANCOMYCIN HCL 2,000 MG in 0.9 % SODIUM CHLORIDE 500 ML 250 MG IV (01:41)
[2024-09-08] MEDS: ALBUTEROL SULFATE 2.5 MG/3 ML VIAL NEB IH (03:12)
[2024-09-08] MEDS: CALCIUM GLUC IN NACL, ISO-OSM 1 GM/50 ML PLAST..BAG IV (03:52)
[2024-09-08] MEDS: DEXTROSE 50 %-WATER 25 GM/50 ML SYRINGE IV (04:08)
[2024-09-08] MEDS: DEXTROSE 5%-0.9% NACL 1,000 ML 1,000 ML 100 ML IV (04:08)
[2024-09-08 04:53] LABS: Glucometer 228 mg/dL (74-106)
[2024-09-08] MEDS: INSULIN REGULAR, HUMAN (100 UNIT/ML) 10 ML MDV 10 UNIT IV (04:53)
[2024-09-08] MEDS: CEFTRIAXONE 1,000 MG in 0.9 % SODIUM CHLORIDE 50 ML 100 MG IV (05:38)
[2024-09-08 05:41] LABS: Basophils Percent Auto 0.1 % (0.2-2.0); Hematocrit 33.3 % (36.0-48.0); Hemoglobin 10.2 g/dL (12.0-16.0); Immature Granulocytes Abs Auto 0.13 10^3/uL (0.00-0.03); Immature Granulocytes Pct Auto 0.6 % (0.0-0.5); Lymphocytes Absolute Auto 0.9 10^3/uL (1.2-3.8); Lymphocytes Percent Auto 3.8 % (20.5-60.0); Mean Corpuscular HGB Conc 30.6 g/dL (29.9-35.2); Mean Corpuscular Hemoglobin 29.1 pg (26.7-34.0); Mean Corpuscular Volume 94.9 fL (81.0-99.0); Mean Platelet Volume 8.7 fL (9.5-13.5); Monocytes Absolute Auto 0.2 10^3/uL (0.3-0.8); Monocytes Percent Auto 0.7 % (1.7-12.0); Neutrophils Absolute Auto 21.4 10^3/uL (1.4-6.5); Neutrophils Percent Auto 94.8 % (43.0-75.0); Platelet Count 297 10^3/uL (150-450); Red Blood Count 3.51 10^6/uL (4.20-5.40); Red Cell Distribution Width 17.9 % (11.0-15.0); White Blood Count 22.6 10^3/uL (4.0-11.0)
[2024-09-08 05:44] LABS: Glucometer 174 mg/dL (74-106)
[2024-09-08 05:49] LABS: Alanine Aminotransferase 14 U/L (14-59); Albumin Globulin Ratio 0.5; Albumin Level 2.3 g/dL (3.4-5.0); Alkaline Phosphatase 66 U/L (46-116); Anion Gap 14.2; Aspartate Amino Transferase 20 U/L (15-37); BUN Creatinine Ratio 20.6; Bilirubin Total 0.5 mg/dL (0.2-1.0); Calcium 10.1 mg/dL (8.5-10.1); Carbon Dioxide 27.7 mmol/L (21.0-32.0); Chloride 100 mmol/L (98-107); Estimated GFR (African America 47 (>=60 mL/min/1.73m^2); Estimated GFR (Non-African Ame 39 (>=60 mL/min/1.73m^2); Globulin 5.1 g/dL; Glucose 196 mg/dL (74-106); Magnesium 2.1 mg/dL (1.8-2.4); Potassium 4.9 mmol/L (3.5-5.1); Sodium 137 mmol/L (136-145); Total Protein 7.4 g/dL (6.4-8.2)
[2024-09-08 08:02] LABS: Glucometer 174 mg/dL (74-106)
--- OUTSIDE RECORDS SUMMARY | 2024-09-08 08:20 | XMS_ITS | CCD ---
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 U MARTÍN, UAX #### [facility] [address] [place] [address] Hand Cell Tuber: Giovany Patel MD RBC (Bld) [#/Vol] 2.81 10*6/uL Low 3.95-5.11 [facility] Comment on above: Performed By: #### U MARTÍN, UAX #### [facility] [address] [place] [address] Hand Cell Tuber: Giovany Patel MD RBC morphology finding Nom (Bld) ANISOCYTOSIS PRESENT Normal [facility] Comment on above: Performed By: #### U MARTÍN, UAX #### [facility] [address] [place] [address] Hand Cell Tuber: Giovany Patel MD WBC (Bld) [#/Vol] 10.9 10*3/uL Normal 3.5-11.3 [facility] Comment on above: Performed By: #### U CORINNEO, UAX #### [facility] [address] [place] [address] Hand Cell Tuber: Giovany Patel MD Cardiac echo study Procedure [...] [facility] AV VTI 30.7 cm [facility] E/E' Lateral 14.71 [facility] E/E' Ratio (Averaged) 13.79 [facility] E/E' Septal 12.88 [facility] EF 3D 56 % [facility] Interpretation and review of laboratory results Abnormal [facility] IVC Proxmal 1.5 cm [facility] IVSd 1.5 cm Abnormal 0.6 - 0.9 cm [facility] LA Area 2C 18.6 cm2 [facility] LA Area 4C 22.3 cm2 [facility] LA Major [place] 6.1 cm [facility] LA Minor [place] 5.7 cm [facility] LA Volume BP 57 mL Abnormal 22 - 52 mL [facility] LA Volume MOD A2C 50 mL 22 - 52 mL [facility] LA Volume MOD A4C 64 mL Abnormal 22 - 52 mL [facility] LV E' Lateral Velocity 7 cm/s [facility] LV E' Septal Velocity 8 cm/s [facility] LV EDV 3D 114 mL [facility] LV ESV 3D 50 mL [facility] LV Mass 2D 160.1 g 67 - 162 g [facility] LV Mass 3D 163.0 g [facility] LV RWT Ratio 0.61 [facility] LVIDd 3.6 cm Abnormal 3.9 - 5.3 cm [facility] LVOT Mean Gradient 2 mmHg [facility] [employer] LVOT Peak Gradient 4 mmHg [facility] LVOT Peak Velocity 1.0 m/s [facility] LVOT VTI 15.3 cm [facility] LVOT:AV VTI Index 0.50 [facility] [employer] LVPWd 1.1 cm Abnormal 0.6 - 0.9 cm [facility] MV E Velocity 1.03 m/s [facility] MV E Wave Deceleration Time 164.0 ms [facility] MV Max Velocity 1.3 m/s [facility] [employer] [employer] MV Mean Gradient 2 mmHg [facility] [employer] MV Mean Velocity 0.7 m/s [facility] [employer] MV Peak Gradient 6 mmHg [facility] MV VTI 26.8 cm KARLO AGUIAR [employer] MV:LVOT VTI Index 1.75 [facility] OUR[facility] [employer] PV Max Velocity 1.4 m/s KARLO YIPOU RS [employer] [facility] PV Peak Gradient 8 mmHg [facility] U[facility] RV Basal Dimension 3.7 cm [facility] [employer] Peak S' 12 cm/s KARLO AGUIAR [employer] [facility] TAPSE 2.1 cm 1.7 cm KARLO AGUIAR [employer] Left Ventricle: Normal left ventricular systolic function. [...] Doppler was performed. No contrast was given. [facility] CV CPACS [employer] [facility] [facility] [employer] [employer] Glucose,Whole Bloodon 2023 Glucose [Mass/Vol] 284 mg/dL High 65-105 [facility] Glucose [Mass/Vol] 215 mg/dL High 65-105 [facility] Glucose [Mass/Vol] 202 mg/dL High 65-105 [facility] Glucose [Mass/Vol] 176 mg/dL High 65-105 [facility] POC Glucose Fingerstickon Glucose [Mass/Vol] 284 mg/dL High 65 - 105 mg/dL [facility] Interpretation and review of laboratory results Abnormal [facility] Glucose [Mass/Vol] 215 mg/dL High 65 - 105 mg/dL [facility] Interpretation and review of laboratory results Abnormal [facility] Glucose [Mass/Vol] 202 mg/dL High 65 - 105 mg/dL [facility] Interpretation and review of laboratory results Abnormal [facility] Glucose [Mass/Vol] 176 mg/dL High 65 - 105 mg/dL [facility] Interpretation and review of laboratory results Abnormal [facility] XR TOE LEFT (MIN 2 VIEWS)on [...] Zenon Light MD 09/08/23 Final result Normal [facility] XR Toes - left 2 Viewson Mildly impacted fracture of the distal 1st proximal phalanx. [facility] RIS CONSOLIDATED EXAMINATION: 3 XRAY VIEWS OF [...] bones are markedly osteopenic. Prominent vascular calcification. [facility] RIS CONSOLIDATED Zenon Light MD - 09/08/2023 [...] fracture of the distal 1st proximal phalanx. [facility] Radiology Study observation (narrative) [facility] Basic Metab w/rfx MGon 09-06 Anion gap [Moles/Vol] 10 mmol/L Normal 9-16 [facility] Comment on above: Performed By: #### F YENY RAMOS, BNP #### [facility] [address] [place] [id number] Hand Cell Tuber: Giovany Patel MD Calcium [Mass/Vol] 10.2 mg/dL Normal 8.6-10.4 [facility] Comment on above: Performed By: #### F YENY RAMOS, BNP #### [facility] [address] [place] [address] Hand Cell Tuber: Giovany Patel MD Chloride [Moles/Vol] 98 mmol/L Normal 98-107 [facility] Comment on above: Performed By: #### F YENY RAMOS, BNP #### [facility] [address] [place] [address] Hand Cell Tuber: Giovany Patel MD CO2 [Moles/Vol] 34 mmol/L High 20-31 [facility] Comment on above: Performed By: #### F YENY RAMOS, BNP #### [facility] [place] [address] Hand Cell Tuber: Giovany Patel MD Creatinine [Mass/Vol] 0.6 mg/dL Normal 0.50-0.90 [facility] Comment on above: Performed By: #### F YENY RAMOS, BNP #### [facility] [address] [place] [address] Hand Cell Tuber: Giovany Patel MD GFR/1.73 sq M.predicted among non-blacks MDRD (S/P/Bld) [Vol rate/Area] mL/min/{1.73_m2} Normal >60 [facility] Comment on above: Result Comment: These [...] By: #### F YENY RAMOS, BNP #### [facility] [address] [place] [address] Hand Cell Tuber: Giovany Patel MD Glucose [Mass/Vol] 146 mg/dL High 74-99 [facility] Comment on above: Performed By: #### F YENY RAMOS, BNP #### [facility] [address] [place] [address] Hand Cell Tuber: Giovany Patel MD Potassium [Moles/Vol] 4.3 mmol/L Normal 3.7-5.3 [facility] Comment on above: Performed By: #### F YENY RAMOS, BNP #### [facility] [address] [place] [address] Hand Cell Tuber: Giovany Patel MD Sodium [Moles/Vol] 142 mmol/L Normal 136-145 [facility] Comment on above: Performed By: #### F YENY RAMOS, BNP #### [facility] [address] [place], [place] [id number] Hand Cell Tuber: Giovany Patel MD Urea nitrogen [Mass/Vol] 16 mg/dL Normal 8-23 [facility] Comment on above: Performed By: #### F YENY RAMOS, BNP #### [facility] [address] [place] [address] Hand Cell Tuber: Giovany Patel MD Basic Metabolic Panel w/ Ref ny to MGon 09-07-2023 Anion gap [Moles/Vol] 10 mmol/L 9 - 16 mmol/L [facility] [employer] Calcium [Mass/Vol] 10.2 mg/dL 8.6 - 10. 4 mg/dL [facility] [employer] Chloride [Moles/Vol] 98 mmol/L 98 - 107 mmol/L [facility] CO2 [Moles/Vol] 34 mmol/L High 20 - 31 mmol/L [facility] [employer] Creatinine [Mass/Vol] 0.6 mg/dL 0.50 - 0.90 mg/dL [facility] [facility] [employer] [employer], Neftali Lakhani Rate - [facility] Comment on above: These results are not [...] 146 mg/dL High 74 - 99 mg/dL [facility] [employer] Interpretation and review of laboratory results Abnormal [facility] Potassium [Moles/Vol] 4.3 mmol/L 3.7 - 5.3 mmol/L [facility] [employer] Sodium [Moles/Vol] 142 mmol/L 136 - 145 mmol/L [facility] [employer] Urea nitrogen [Mass/Vol] 16 mg/dL 8 - 23 mg/dL [facility] CBC with Auto Differentialon 09-07-2023 Basophils (Bld) [#/Vol] [facility] Basophils/100 WBC (Bld) 0 % 0 - 2 % [facility] Eosinophils (Bld) [#/Vol] 0.20 10*3/uL [facility] Eosinophils/100 WBC (Bld) 2 % 1 - 4 % [facility] Erythrocyte distribution width (RBC) [Ratio] 17.7 % High 11.8 - 14.4 % [facility] Hematocrit (Bld) [Volume fraction] 29.8 % Low 36.3 - 47.1 % [facility] Hemoglobin (Bld) [Mass/Vol] 8.8 g/dL Low 11.9 - 15.1 g/dL [facility] Immature granulocytes (Bld) [#/Vol] 0.12 10*3/uL [facility] Immature granulocytes/100 WBC (Bld) 1 % High 0 [facility] Interpretation and review of laboratory results Abnormal [facility] Lymphocytes/100 WBC (Bld) 11 % Low 24 - 43 % [facility] Lymphocytes/100 WBC (Bld) 1.23 % [facility] MCH (RBC) [Entitic mass] 29.3 pg 25.2 - 33.5 pg [facility] MCHC (RBC) [Mass/Vol] 29.5 g/dL 28.4 - 34.8 g/dL [facility] MCV (RBC) [Entitic vol] 99.3 fL 82.6 - 102.9 fL [facility] Monocytes/100 WBC (Bld) 7 % 3 - 12 % [facility] Monocytes/100 WBC (Bld) 0.74 % [facility] Neutrophils/100 WBC (Bld) 79 % High 36 - 65 % [facility] Nucleated RBC/100 WBC (Bld) [Ratio] 0.0 % 0.0 per 100 WBC [facility] Platelet mean volume (Bld) [Entitic vol] 8.9 fL 8.1 - 13.5 fL [facility] Platelets (Bld) [#/Vol] 333 10*3/uL [facility] RBC (Bld) [#/Vol] 3.00 10*6/uL Low 3.95 - 5.1 1 m/uL [facility] RBC (Bld) [#/Vol] ANISOCYTOSIS PRESENT [facility] Segmented neutrophils/100 WBC (Bld) 8.44 % High [facility] WBC other (Bld) [#/Vol] 10.8 [facility] CBC with Diffon 09-07-2023 Abs. Basophil <0.03 Normal 0.00-0.20 [facility] Comment on above: Performed By: #### F YENY RAMOS, BNP #### [facility] [address] [place] [address] Hand Cell Tuber: Giovany Patel MD Abs.Imm.Granulocyte 0.12 k/uL Normal 0.00-0.30 [facility] Comment on above: Performed By: #### YENY KNOX, BNP #### [facility] [address] [place] [address] Hand Cell Tuber: Giovany Patel MD Abs.Neutrophil (Seg) 8.44 k/uL High 1.50-8.10 [facility] Comment on above: Performed By: #### YENY KNOX, BNP #### [facility] [address] [place] [address] Hand Cell Tuber: Giovany Patel MD Basophils/100 WBC (Bld) 0 % Normal 0-2 [facility] Comment on above: Performed By: #### F YENY RAMOS, BNP #### [facility] [address] [place] [address] Hand Cell Tuber: Giovany Patel MD Eosinophils (Bld) [#/Vol] 0.20 10*3/uL Normal 0.00-0.44 [facility] Comment on above: Performed By: #### F YENY RAMOS, BNP #### [facility] [address] [place] [address] [employer] Cell Tuber: Giovany Patel MD Eosinophils/100 WBC (Bld) 2 % Normal 1-4 [facility] Comment on above: Performed By: #### F YENY RAMOS, BNP #### [facility] [employer] [address] [place] [address] [employer] Tuber: Giovany Patel MD Erythrocyte distribution width (RBC) [Ratio] 17.7 % High 11.8-14.4 [facility] Comment on above: Performed By: #### F YENY RAMOS, BNP #### [facility] [employer] [address] [place] [address] Hand Cell Tuber: Giovany Patel MD Hematocrit (Bld) [Volume fraction] 29.8 % Low 36.3-47.1 [facility] Comment on above: Performed By: #### F YENY RAMOS, BNP #### [facility] [employer] [address] [place] [address] Hand Cell Tuber: Giovany Patel MD Hemoglobin (Bld) [Mass/Vol] 8.8 g/dL Low 11.9-15.1 [facility] Comment on above: Performed By: #### F YENY RAMOS, BNP #### [facility] [employer] [address] [place] [address] Hand Cell Tuber: Giovany Patel MD Immature granulocytes/100 WBC (Bld) 1 % High 0 [facility] Comment on above: Performed By: #### F RICHARDVIPUL LozaBC, BNP #### [facility] [employer] [address] [place] [address] [employer] Cell Tuber: Giovany Patel MD Lymphocytes (Bld) [#/Vol] 1.23 10*3/uL Normal 1.10-3.70 [facility] Comment on above: Performed By: #### F VIPUL RAMOSBC, BNP #### [facility] [employer] [address] [place] [address] [employer]uber: Giovany Patel MD Lymphocytes/100 WBC (Bld) 11 % Low 24-43 [facility] Comment on above: Performed By: #### F RICHARD, FEBC, BNP #### [address] [address] [employer] Cell Tuber: Giovany Patel MD MCH (RBC) [Entitic mass] 29.3 pg Normal 25.2-33.5 [facility] Comment on above: Performed By: #### F RICHARDYENY Loza, BNP #### [address] [address] [employer] Cell Tuber: Giovany Patel MD MCHC (RBC) [Mass/Vol] 29.5 g/dL Normal 28.4-34.8 [facility] Comment on above: Performed By: #### F RICHARD, FEBC, BNP #### [address] [address] [employer] Cell Tuber: Giovany Patel MD MCV (RBC) [Entitic vol] 99.3 fL Normal 82.6-102.9 [facility] Comment on above: Performed By: #### F RICHARDVIPUL LozaBC, BNP #### [address] [address] [employer] Cell [employer]uber: Giovany Patel MD Monocytes (Bld) [#/Vol] 0.74 10*3/uL Normal 0.10-1.20 [facility] Comment on above: Performed By: #### F RICHARDVIPUL LozaBC, BNP #### [address] [address] [employer] Cell Tuber: Giovany Patel MD Monocytes/100 WBC (Bld) 7 % Normal 3-12 [facility] Comment on above: Performed By: #### F RICHARD, FEBC, BNP #### [address] [address] [employer] Cell Tuber: Giovany Patel MD Neutrophil (Seg) 79 % High 36-65 [facility] Comment on above: Performed By: #### F VIPUL RAMOSBC, BNP #### [address] [address] [employer] Cell Tuber: Giovany Patel MD NRBC Automated 0.0 per 100 WBC Normal 0.0 [facility] Comment on above: Performed By: #### F YENY RAMOS, BNP #### [address] [address] [employer] Cell Tuber: Giovany Patel MD Platelet mean volume (Bld) [Entitic vol] 8.9 fL Normal 8.1-13.5 [facility] Comment on above: Performed By: #### F YENY RAMOS, BNP #### [address] [address] [employer] Cell Tuber: Giovany Patel MD Platelets (Bld) [#/Vol] 333 10*3/uL Normal 138-453 [facility] Comment on above: Performed By: #### F YENY RAMOS, BNP #### [address] [address] [employer] Tuber: Giovany Patel MD RBC (Bld) [#/Vol] 3.00 10*6/uL Low 3.95-5.11 [facility] Comment on above: Performed By: #### F YENY RAMOS, BNP #### [address] [address] [employer]uber: Giovany Patel MD RBC morphology finding Nom (Bld) ANISOCYTOSIS PRESENT Normal [facility] Comment on above: Performed By: #### F YENY RAMOS, BNP #### [address] [address] [employer]uber: Giovany Patel MD WBC (Bld) [#/Vol] 10.8 10*3/uL Normal 3.5-11.3 [facility] Comment on above: Performed By: #### F RICHARD, FEBC, BNP #### [facility] [address] [place] [address] Hand Cell Tuber: Giovany Patel MD Cardiac echo study Procedure on 09-07-2023 Radiology Study observation (narrative) [facility] EKG 12 Lead (Abn HR)Ordered By: Josh Lorenzo on 09-07-2023 Atrial Rate 65 BPM [facility] Work Phone: Q-T Interval 308 ms [facility] Work Phone: QRS Duration 82 ms [employer] Phone: QTc Calculation (Bazett) 317 ms [facility] Work Phone: R [place] -7 degrees [facility] Work Phone: T [place] -150 degrees [facility] Work Phone: Ventricular Rate 64 BPM [facility]ON [employer] Work Phone: [facility] Work Phone: EKG 12 Lead (Abn HR)on 09-[address] and T wave abnormality Abnormal ECG When compared with ECG of 28-APR-2001 05:14, Current undetermined rhythm precludes rhythm comparison, needs review ST now depressed in Anterior leads Nonspecific T wave abnormality now evident in Inferior leads Nonspecific T wave abnormality, worse in Anterolateral leads QT has shortened [facility] Josh Valdivia MD - 09/07/2023 Undetermined rhythm Nonspecific ST and T wave abnormality Abnormal ECG When compared with ECG of 28-APR-2001 05:14, Current undetermined rhythm precludes rhythm comparison, needs review ST now depressed in Anterior leads Nonspecific T wave abnormality now evident in Inferior leads Nonspecific T wave abnormality, worse in Anterolateral leads QT has shortened [facility] Glucose,Whole Bloodon 2023 Glucose [Mass/Vol] 280 mg/dL High 65-105 [facility] Glucose [Mass/Vol] 199 mg/dL High 65-105 [facility] Glucose [Mass/Vol] 173 mg/dL High 65-105 [facility] Glucose [Mass/Vol] 141 mg/dL High 65-105 [facility] Microscopic Urinalysison Bacteria LM Ql (Urine sed) None None [facility] Casts LM.LPF (Urine sed) [#/Area] 0 TO 2 HYALINE Reference range defined for non-centrifuged specimen. [facility] Epithelial cells LM.HPF (Urine sed) [#/Area] None [facility] RBC LM.HPF (Urine sed) [#/Area] None [facility] Comment on above: Reference range defi barrington for non-centrifuged specimen. WBC LM.HPF (Urine sed) [#/Area] 2 TO 5 [facility] POC Glucose Fingerstickon Glucose [Mass/Vol] 280 mg/dL High 65 - 105 mg/dL [facility] Interpretation and review of laboratory results Abnormal [facility] Glucose [Mass/Vol] 199 mg/dL High 65 - 105 mg/dL [facility] Interpretation and review of laboratory results Abnormal [facility] Glucose [Mass/Vol] 173 mg/dL High 65 - 105 mg/dL [facility] Interpretation and review of laboratory results Abnormal [facility] Glucose [Mass/Vol] 141 mg/dL High 65 - 105 mg/dL [facility] Interpretation and review of laboratory results Abnormal [facility] UA w/Reflex Cultureon 2023 Bilirubin, SemiQt,Ur Negative Normal NEG [facility] Comment on above: Performed By: #### U MICAMert, UAX #### [facility] [employer] [address] [place] [address] Hand Cell Tuber: Giovany Patel MD Blood, Urine Negative Normal NEG [facility] Comment on above: Performed By: #### U MICAO, UAX #### [address] [address] Hand Cell Tuber: Giovany Patel MD Clarity (U) Clear Normal CLEAR [facility] Comment on above: Performed By: #### U MICAO, UAX #### [facility] [address] [place] [address] Hand Cell Tuber: Giovany Patel MD Color (U) Yellow Normal YEL [facility] Comment on above: Performed By: #### U MICAO, UAX #### [facility] [address] [place] [address] Hand Cell Tuber: Giovany Patel MD Glucose Ql (U) Negative Normal NEG [facility] Comment on above: Performed By: #### U MICAO, UAX #### [address] [address] Hand Cell Tuber: Giovany Patel MD Ketones Ql (U) Negative Normal NEG [facility] Comment on above: Performed By: #### U MICAO, UAX #### [address] [address] Hand Cell Tuber: Giovany Patel MD Leukocyte esterase Test strip Ql (U) SMALL Abnormal NEG [facility] Comment on above: Performed By: #### U MICAO, UAX #### [address] [address] Hand Cell Tuber: Giovany Patel MD Nitrite,Ur Negative Normal NEG [facility] Comment on above: Performed By: #### U MICAO, UAX #### [address] [address] Hand Cell Tuber: Giovany Patel MD PH,Ur 5.0 Normal 5.0-8.0 [facility] Comment on above: Performed By: #### U CORINNEO, UAX #### [facility] [place] [address] Hand Cell Tuber: Giovany Patel MD Protein Ql (U) Negative Normal NEG [facility] Comment on above: Performed By: #### U CORINNEO, UAX #### [facility] [place], [place] [phone] Hand Cell Tuber: Giovany Patel MD Spec. Hemet,Ur 1.016 Normal 1.005-1.030 [facility] Comment on above: Performed By: #### U MARTÍN, UAX #### [facility] [address] [place] [address] [phone] Hand Cell Tuber: Giovany Patel MD Urobilinogen,Ur Normal Normal 0.0-1.0 [facility] Comment on above: Performed By: #### U CORINNEO, UAX #### [facility] [address] [place] [address] [phone] Hand Cell Tuber: Giovany Patel MD Urinalysis with Reflex to Cu ltureon 09-07-2023 Bilirubin Ql (U) Negative NEGATIVE [employer] [facility] [employer] Clarity (U) Clear Clear [facility] Color (U) Yellow Yellow [employer] [facility] [place] [facility] [employer] Glucose Test strip (U) [Mass/Vol] Negative NEGATIVE mg/dL [employer] [facility] [place] [facility] Hemoglobin Auto test strip Ql (U) Negative NEGATIVE [employer] [facility] [place] [facility] Interpretation and review of laboratory results Abnormal [facility] [place] [facility] Ketones (U) [Mass/Vol] Negative NEGATIVE mg/dL [employer] [facility] [place] [facility] Leukocyte esterase Test strip Ql (U) SMALL Abnormal NEGATIVE [employer] [facility] [place] [facility] Nitrite Ql (U) Negative NEGATIVE [facility] pH (U) 5.0 [pH] 5.0 - 8.0 [place] SEC[facility] [place] [facility] Protein (U) [Mass/Vol] Negative NEGATIVE mg/dL [employer] [facility] Specific gravity (U) [Rel density] 1.016 1.005 - 1.030 [facility] Urobilinogen Qn (U) Normal 0.0 - 1. 0 EU/dL [facility] Urinalysis,Microon 4 Bacteria None Normal NONE [facility] Comment on above: Performed By: #### U CORINNEO, UAX #### [facility] [employer] [address] [place] [address] 19807 Hand Cell Tuber: Giovany Patel MD Casts 0 TO 2 HYALINE Normal 0-8 [facility] Comment on above: Result Comment: Refe rence range defined for non-centrifuged specimen. Performed By: #### U CORINNEO, UAX #### [facility] [employer] [address] [place] [address] Hand Cell Tuber: Giovany Patel MD Epithelial cells LM Ql (Urine sed) None Normal 0-5 [facility] Comment on above: Performed By: #### U CORINNEO, UAX #### [facility] [address] [place] [address] Hand Cell Tuber: Giovany Patel MD Urine RBC's None Normal 0-4 [facility] Comment on above: Result Comment: Refe rence range defined for non-centrifuged specimen. Performed By: #### U CORINNEO, UAX #### [facility] [address] [place] [address] Hand Cell Tuber: Giovany Patel MD Urine WBC's 2 TO 5 Normal 0-5 [facility] Comment on above: Performed By: #### U MICAO, UAX #### [facility] [employer] [address] [place] [address] Hand Cell Tuber: Giovany Patel MD BMPon 09-06-2023 Anion gap [Moles/Vol] 10 mmol/L 9 - 16 mmol/L [facility] [employer] Calcium [Mass/Vol] 9.8 mg/dL 8.6 - 10. 4 mg/dL [facility] Chloride [Moles/Vol] 96 mmol/L Low 98 - 107 mmol/L [facility] CO2 [Moles/Vol] 34 mmol/L High 20 - 31 mmol/L [facility] Creatinine [Mass/Vol] 0.6 mg/dL 0.50 - 0.90 mg/dL [facility] EstNeftali Rate - [facility] Comment on above: These results are not [...] mg/dL High 74 - 99 mg/dL [facility] Interpretation and review of laboratory results Abnormal [facility] Potassium [Moles/Vol] 5.2 mmol/L 3.7 - 5.3 mmol/L [facility] Sodium [Moles/Vol] 140 mmol/L 136 - 145 mmol/L [facility] Urea nitrogen [Mass/Vol] 21 mg/dL 8 - 23 mg/dL [facility] Basic Metabolic Panelon - Anion gap [Moles/Vol] 8 mmol/L Low 9 - 16 mmol/L [facility] Calcium [Mass/Vol] 9.1 mg/dL 8.6 - 10. 4 mg/dL [facility] Chloride [Moles/Vol] 96 mmol/L Low 98 - 107 mmol/L [facility] CO2 [Moles/Vol] 35 mmol/L High 20 - 31 mmol/L [facility] Creatinine [Mass/Vol] 0.5 mg/dL 0.50 - 0.90 mg/dL [facility] Est, Neftali Amayar[employer]as Rate - [facility] Comment on above: These results are not [...] mg/dL High 74 - 99 mg/dL [facility] Interpretation and review of laboratory results Abnormal [facility] Potassium [Moles/Vol] 4.4 mmol/L 3.7 - 5.3 mmol/L [facility] Sodium [Moles/Vol] 139 mmol/L 136 - 145 mmol/L [facility] Urea nitrogen [Mass/Vol] 18 mg/dL 8 - 23 mg/dL [facility] Basic Metabolic Profon 09-05 Anion gap [Moles/Vol] 8 mmol/L Low 9-16 [facility] Comment on above: Performed By: #### U MARTÍN UAX #### [facility] [address] [place] [address] [phone] Hand Cell Tuber: Giovany Patel MD Calcium [Mass/Vol] 9.1 mg/dL Normal 8.6-10.4 [facility] Comment on above: Performed By: #### U MARTÍN UAX #### [facility] [address] [place] [address] Hand Cell Tuber: Giovany Patel MD Chloride [Moles/Vol] 96 mmol/L Low 98-107 [facility] Comment on above: Performed By: #### U MARTÍN UAX #### [facility] [address] [place] [address] Hand Cell Tuber: Giovany Patel MD CO2 [Moles/Vol] 35 mmol/L High 20-31 [facility] Comment on above: Performed By: #### U CORINNEO, UAX #### [facility] [address] [place] [address] Hand Cell Tuber: Giovany Patel MD Creatinine [Mass/Vol] 0.5 mg/dL Normal 0.50-0.90 [facility] Comment on above: Performed By: #### U MARTÍN UAX #### [address] [address] Hand Cell Tuber: Giovany Patel MD GFR/1.73 sq M.predicted among non-blacks MDRD (S/P/Bld) [Vol rate/Area] mL/min/{1.73_m2} Normal >60 [facility] Comment on above: Result Comment: These [...] Performed By: #### Michelle RESENDIZ UAX #### [address] [address] Hand Cell Tuber: Giovany Patel MD Glucose [Mass/Vol] 123 mg/dL High 74-99 [facility] Comment on above: Performed By: #### Michelle RESENDIZ UAX #### [address] [address] Hand Cell Tuber: Giovany Patel MD Potassium [Moles/Vol] 4.4 mmol/L Normal 3.7-5.3 [facility] Comment on above: Performed By: #### U MARTÍN UAX #### [facility] [employer] [address] [place] [address] Hand Cell Tuber: Giovany Patel MD Sodium [Moles/Vol] 139 mmol/L Normal 136-145 [facility] Comment on above: Performed By: #### U MARTÍN, UAX #### [facility] [employer] [address] [place] [address] Hand Cell Tuber: Giovany Patel MD Urea nitrogen [Mass/Vol] 18 mg/dL Normal 8-23 [facility] Comment on above: Performed By: #### U MICAO, UAX #### [address] [address] Hand Cell Tuber: Giovany Patel MD Anion gap [Moles/Vol] 10 mmol/L Normal 9-16 [facility] Comment on above: Performed By: #### B MP, TROPI #### [facility] [address] [place] [address] Hand Cell Tuber: Giovany Patel MD Calcium [Mass/Vol] 9.8 mg/dL Normal 8.6-10.4 [facility] Comment on above: Performed By: #### B MP, TROPI #### [facility] [employer] [address] [place] [address] Hand Cell Tuber: Giovany Patel MD Chloride [Moles/Vol] 96 mmol/L Low 98-107 [facility] Comment on above: Performed By: #### B MP, TROPI #### [facility] [employer] [address] [place] [address] Hand Cell Tuber: Giovany Patel MD CO2 [Moles/Vol] 34 mmol/L High 20-31 [facility] Comment on above: Performed By: #### B MP, TROPI #### [facility] [employer] [address] [place] [address] Hand Cell Tuber: Giovany Patel MD Creatinine [Mass/Vol] 0.6 mg/dL Normal 0.50-0.90 [facility] Comment on above: Performed By: #### B MP, TROPI #### [facility] [employer] [address] [place] [address] Hand Cell Tuber: Giovany Patel MD GFR/1.73 sq M.predicted among non-blacks MDRD (S/P/Bld) [Vol rate/Area] mL/min/{1.73_m2} Normal >60 [facility] Comment on above: Result Comment: These [...] Performed By: #### B PONCHO, TROPI #### [facility] [address] [place] [address] Hand Cell Tuber: Giovany Patel MD Glucose [Mass/Vol] 119 mg/dL High 74-99 [facility] Comment on above: Performed By: #### B PONCHO, TROPI #### [facility] [address] [place] [address] Hand Cell Tuber: Giovany Patel MD Potassium [Moles/Vol] 5.2 mmol/L Normal 3.7-5.3 [facility] Comment on above: Performed By: #### B PONCHO, TROPI #### [facility] [address] [place] [address] Hand Cell Tuber: Giovany Patel MD Sodium [Moles/Vol] 140 mmol/L Normal 136-145 [facility] Comment on above: Performed By: #### B PONCHO, TROPI #### [facility] [address] [place] [address] Hand Cell Tuber: Giovany Patel MD Urea nitrogen [Mass/Vol] 21 mg/dL Normal 8-23 [facility] Comment on above: Performed By: #### B PONCHO, TROPI #### [facility] [address] [place] [address] Hand Cell Tuber: Giovany Patel MD Brain Natri. Peptideon 09-05 Natriuretic peptide B (Bld) [Mass/Vol] 2721 pg/mL High 0-300 [facility] Comment on above: Result Comment: An a ge-independent cutoff point of 300 pg/ml has a 98% negative predictive value excluding acute heart failure. Performed By: #### F RICHARD, FEBC, BNP #### [facility] [address] [place] [address] Hand Cell Tuber: Giovany Patel MD Brain Natriuretic Peptideon 09-06-2023 Natriuretic peptide B (Bld) [Mass/Vol] 2721 pg/mL High 0 - 300 pg/mL [facility] Comment on above: An age-independent c utoff point of 300 pg/ml has a 98% negative predictive value excluding acute heart failure. CBCon 09-06-2023 Erythrocyte distribution width (RBC) [Ratio] 17.7 % High 11.8 - 14.4 % [facility] Hematocrit (Bld) [Volume fraction] 27.7 % Low 36.3 - 47.1 % [facility] Hemoglobin (Bld) [Mass/Vol] 8.3 g/dL Low 11.9 - 15.1 g/dL [facility] Interpretation and review of laboratory results Abnormal [facility] MCH (RBC) [Entitic mass] 29.9 pg 25.2 - 33.5 pg [facility] MCHC (RBC) [Mass/Vol] 30.0 g/dL 28.4 - 34.8 g/dL [facility] MCV (RBC) [Entitic vol] 99.6 fL 82.6 - 102.9 fL [facility] Nucleated RBC/100 WBC (Bld) [Ratio] 0.0 % 0.0 per 100 WBC [facility] Platelet mean volume (Bld) [Entitic vol] 8.9 fL 8.1 - 13.5 fL [facility] Platelets (Bld) [#/Vol] 341 10*3/uL [facility] RBC (Bld) [#/Vol] 2.78 10*6/uL Low 3.95 - 5.1 1 m/uL [facility] WBC other (Bld) [#/Vol] 12.6 High [facility] Erythrocyte distribution width (RBC) [Ratio] 17.7 % High 11.8-14.4 [facility] Comment on above: Performed By: #### C BC #### [address] [address] Hand Cell Tuber: Giovany Patel MD Hematocrit (Bld) [Volume fraction] 27.7 % Low 36.3-47.1 [facility] Comment on above: Performed By: #### C BC #### [address] [address] Hand Cell Tuber: Giovany Patel MD Hemoglobin (Bld) [Mass/Vol] 8.3 g/dL Low 11.9-15.1 [facility] Comment on above: Performed By: #### C BC #### [address] [address] Hand Cell Tuber: Giovany Patel MD MCH (RBC) [Entitic mass] 29.9 pg Normal 25.2-33.5 [facility] Comment on above: Performed By: #### C BC #### [address] [address] Hand Cell Tuber: Giovany Patel MD MCHC (RBC) [Mass/Vol] 30.0 g/dL Normal 28.4-34.8 [facility] Comment on above: Performed By: #### C BC #### [address] [address] Hand Cell Tuber: Giovany Patel MD MCV (RBC) [Entitic vol] 99.6 fL Normal 82.6-102.9 [facility] Comment on above: Performed By: #### C BC #### [address] [address] Hand Cell Tuber: Giovany Patel MD NRBC Automated 0.0 per 100 WBC Normal 0.0 [facility] Comment on above: Performed By: #### C BC #### [address] [address] Hand Cell Tuber: Giovany Patel MD Platelet mean volume (Bld) [Entitic vol] 8.9 fL Normal 8.1-13.5 [facility] Comment on above: Performed By: #### C BC #### [address] [address] Hand Cell Tuber: Giovany Patel MD Platelets (Bld) [#/Vol] 341 10*3/uL Normal 138-453 [facility] Comment on above: Performed By: #### C BC #### [address] [address] Hand Cell Tuber: Giovany Patel MD RBC (Bld) [#/Vol] 2.78 10*6/uL Low 3.95-5.11 [facility] Comment on above: Performed By: #### C BC #### [address] [address] Hand Cell Tuber: Giovany Patel MD WBC (Bld) [#/Vol] 12.6 10*3/uL High 3.5-11.3 [facility] Comment on above: Performed By: #### C BC #### [address] [address] Hand Cell Tuber: Giovany Patel MD Ferritinon 09-06-2023 Ferritin [Mass/Vol] 380 ng/mL High 13 - 150 ng/mL [facility] Comment on above: No reference range e stablished for this age/gender. Ferritin [Mass/Vol] 380 ng/mL High 13-150 [facility] Comment on above: Result Comment: No r eference range established for this age/gender. Performed By: #### F RICHARD, FEBC, BNP #### [address] [address] Hand Cell Tuber: Giovany Patel MD Glucose,Whole Bloodon 2023 Glucose [Mass/Vol] 112 mg/dL High 65-105 [facility] Iron Binding Cap.on 09-06-19 24 % Fe Saturation 11 % Low 20-55 [facility] Comment on above: Performed By: #### F RICHARD, FEBC, BNP #### [facility] [address] [place] [address] Hand Cell Tuber: Giovany Patel MD Iron [Mass/Vol] 24 ug/dL Low 37-145 [facility] Comment on above: Performed By: #### F RICHARD, FEBC, BNP #### [facility] [address] [place], [place] [phone] Hand Cell Tuber: Giovany Patel MD Total Fe Binding Cap 209 ug/dL Low 250-450 [facility] Comment on above: Performed By: #### F RICHARD, FEBC, BNP #### [facility] [place], [place] [phone] Hand Cell Tuber: Giovany Patel MD Unbound Fe Bind Cap 185 ug/dL Normal 112-347 [facility] Comment on above: Performed By: #### F RICHARD, FEBC, BNP #### [facility] [address] [place] [address] [phone] Hand Cell Tuber: Giovany Patel MD Iron and TIBCon 09-06-2023 Iron [Mass/Vol] 24 ug/dL Low 37 - 145 ug/dL [facility] [employer] Iron binding capacity [Mass/Vol] 209 ug/dL Low 250 - 450 ug/dL [facility] [employer] Iron saturation [Mass fraction] 11 % Low 20 - 55 % [facility] [employer] UIBC 185 ug/dL 112 - 347 ug/dL [facility] [employer] No Panel Informationon 09-05 [facility] [employer] Interpretation and review of laboratory results Abnormal [facility] Glucose Fingerstickon Glucose [Mass/Vol] 112 mg/dL High 65 - 105 mg/dL [facility] [employer] Interpretation and review of laboratory results Abnormal [facility] Portable XR Chest AP single viewon 09-06-2023 Multifocal opacification, possibly multifocal pneumonia, ARDS or edema. Left-sided volume loss with possible effusion. [facility] EXAMINATION: ONE XRAY VIEW OF THE [...] the left with possible effusion. No pneumothorax. [facility] Zenon Light MD - 09/06/2023 EXAMINATION: [...] Left-sided volume loss with possible effusion. [facility] Radiology Study observation (narrative) [facility] Portable XR Chest AP single viewOrdered By: Zenon Light on 09-06-2023 [facility] Work Phone: Procalcitoninon 09-06-2023 Procalcitonin [Mass/Vol] 0.08 ng/mL 0.00 - 0.09 ng/mL [facility] Comment on above: Suspected Sepsis: [...] entered into the Change in Procalcitonin Calculator (www.aosdkt-czr-oxakzkdnup.H-umus) to determine the patient's Mortality Risk Prognosis In healthy neonates, plasma Procalcitonin (PCT) concentrations increase gradually after , reaching peak values at about 24 hours of age then decrease to normal values below 0.5 ng/mL by 48-72 hours of age. Procalcitonin 0.08 ng/mL Normal 0.00-0.09 [facility] Comment on above: Result Comment: Suspected [...] entered into the Change in Procalcitonin Calculator (www.oovwsw-nlo-jrllfscyqv.H-umus) to determine the patient's Mortality Risk Prognosis In healthy neonates, plasma Procalcitonin (PCT) concentrations increase gradually after , reaching peak values at about 24 hours of age then decrease to normal values below 0.5 ng/mL by 48-72 hours of age. Performed By: #### U MICAO, UAX #### [facility] [place] [address] Hand Cell Tuber: Giovany Patel MD Troponinon 09-06-2023 Interpretation and review of laboratory results Abnormal [facility] Troponin I.cardiac High sensitivity method [Mass/Vol] 20 ng/L High 0 - 14 ng/L [facility] Comment on above: High Sensitivity Tro ponin values cannot be compared with other Troponin methodologies. Troponin, High Sens 20 ng/L High 0-14 [facility] Comment on above: Result Comment: High Sensitivity Troponin values cannot be compared with other Troponin methodologies. Performed By: #### U MARTÍN, UAX #### [facility] [address] [place], [place] [phone] Hand Cell Tuber: Giovany Patel MD Interpretation and review of laboratory results Abnormal [facility] Troponin I.cardiac High sensitivity method [Mass/Vol] 21 ng/L High 0 - 14 ng/L [facility] Comment on above: High Sensitivity Tro ponin values cannot be compared with other Troponin methodologies. [facility] Troponin, High Sens 21 ng/L High 0-14 [facility] Comment on above: Result Comment: High Sensitivity Troponin values cannot be compared with other Troponin methodologies. Performed By: #### U MARTÍN UAX #### [facility] [address] [place] [address] Hand Cell Tuber: Giovany Patel MD XR CHEST PORTABLEon 09-06-19 [...] Zenon Light MD 09/06/23 Final result Normal [facility] BNPon 02-26-2022 Natriuretic peptide B (Bld) [Mass/Vol] 3520.0 pg/mL Critically high <=1,800.0 [facility] Comment on above: Performed By: #### C MP, BNP #### [facility] [address] [address] [address] Yisel Liu CBC AUTO DIFFon 02-26-2022 BASO # 0.0 103/ul Normal 0.0-0.1 [facility] Comment on above: Performed By: #### C BC #### [facility] [address] [place] [address] Dr. Yisel Liu Basophils/100 WBC (Bld) 0.1 % Critically low 0.2-2.0 [facility] Comment on above: Performed By: #### C BC #### [facility] [address] [place] [address] Dr. Yisel Liu EO # 0.0 103/ul Normal 0.0-0.7 [facility] Comment on above: Performed By: #### C BC #### [facility] [address] [place] [address] Dr. Yisel Liu Eosinophils/100 WBC (Bld) 0.0 % Critically low 0.9-7.0 [facility] Comment on above: Performed By: #### C BC #### [facility] [address] [place] [address] Dr. Yisel Liu Erythrocyte distribution width (RBC) [Ratio] 16.6 % Critically high 11.0-15.0 [facility] Comment on above: Performed By: #### C BC #### [facility] [address] [place] [address] Dr. Yisel Liu Hematocrit (Bld) [Volume fraction] 36.2 % Normal 36.0-48.0 [facility] Comment on above: Performed By: #### C BC #### [facility] [facility] [address] [place] [address] Dr. Yisel Liu Hemoglobin (Bld) [Mass/Vol] 11.1 g/dL Critically low 12.0-16.0 [facility] Comment on above: Performed By: #### C BC #### [facility] [address] [place] [address] Dr. Yisel Liu IG # 0.14 10e3/ul Critically high 0.00-0.03 [facility] Comment on above: Performed By: #### C BC #### [facility] [address] [place] [address] Dr. Yisel Liu IG % 1.0 % Critically high 0.0-0.5 [facility] Comment on above: Performed By: #### C BC #### [facility] [address] [place] [address] Dr. Yisel Liu LYMPH # 0.8 103/ul Critically low 1.2-3.8 [facility] Comment on above: Performed By: #### C BC #### [facility] [address] [place] [address] Dr. Yisel Liu Lymphocytes/100 WBC (Bld) 5.9 % Critically low 20.5-60.0 [facility] Comment on above: Performed By: #### C BC #### [facility] [address] [place] [address] Dr. Yisel Liu MANUAL DIFF REQ NO Normal [facility] Comment on above: Performed By: #### C BC #### [facility] [address] [place] [address] Dr. Yisel Liu MCH (RBC) [Entitic mass] 28.0 pg Normal 26.7-34.0 [facility] Comment on above: Performed By: #### C BC #### [facility] [address] [place] [address] Dr. Yisel Liu MCHC (RBC) [Mass/Vol] 30.7 g/dL Normal 29.9-35.2 [facility] Comment on above: Performed By: #### C BC #### [facility] [address] [place] [address] Dr. Yisel Liu MCV (RBC) [Entitic vol] 91.2 fL Normal 81.0-99.0 [facility] Comment on above: Performed By: #### C BC #### [facility] [address] [place] [address] Dr. Yisel Liu MONO # 1.0 103/ul Critically high 0.3-0.8 [facility] Comment on above: Performed By: #### C BC #### [facility] [address] [place] [address] Dr. Yisel Liu Monocytes/100 WBC (Bld) 7.6 % Normal 1.7-12.0 [facility] Comment on above: Performed By: #### C BC #### [facility] [address] [address] [address] Yisel Liu NEUT # 11.4 103/ul Critically high 1.4-6.5 [facility] Comment on above: Performed By: #### C BC #### [facility] [address] [address] [address] Yisel Liu Neutrophils/100 WBC (Bld) 85.4 % Critically high 43.0-75.0 [facility] Comment on above: Performed By: #### C BC #### [facility] [address] [place] [address] Dr. Yisel Liu Platelet mean volume (Bld) [Entitic vol] 8.8 fL Critically low 9.5-13.5 [facility] Comment on above: Performed By: #### C BC #### [facility] [address] [address] [address] Yisel Liu PLT 325 103/ul Normal 150-450 [facility] Comment on above: Performed By: #### C BC #### [facility] [address] [place] [address] Dr. Yisel Liu RBC 3.97 106/ul Critically low 4.20-5.40 [facility] Comment on above: Performed By: #### C BC #### [facility] [address] [place] [address] Dr. Yisel Liu WBC 13.4 103/ul Critically high 4.0-11.0 [facility] Comment on above: Performed By: #### C BC #### [facility] [address] [address] [address] Yisel Liu PROF 14(COMP METB)on 022 Albumin [Mass/Vol] 2.7 g/dL Critically low 3.4-5.0 [facility] Comment on above: Performed By: #### C MP, BNP #### [facility] [address] [place] [address] Dr. Yisel Liu Albumin/Globulin [Mass ratio] 0.6 {ratio} Normal [facility] Comment on above: Performed By: #### C MP, BNP #### [facility] [address] [place] [address] Dr. Yisel Liu ALP [Catalytic activity/Vol] 49 U/L Normal 46-116 [facility] Comment on above: Performed By: #### C MP, BNP #### [facility] [address] [place] [address] Dr. Yisel Liu ALT [Catalytic activity/Vol] 28 U/L Normal 14-59 [facility] Comment on above: Performed By: #### C MP, BNP #### [facility] [address] [place] [address] Dr. Yisel Liu Anion gap [Moles/Vol] 10.9 mmol/L Normal [facility] Comment on above: Performed By: #### C MP, BNP #### [facility] [address] [place] [address] Dr. Yisel Liu AST [Catalytic activity/Vol] 29 U/L Normal 15-37 [facility] Comment on above: Performed By: #### C MP, BNP #### [facility] [address] [place] [address] Dr. Yisel Liu Bilirubin [Mass/Vol] 0.5 mg/dL Normal 0.2-1.0 [facility] Comment on above: Performed By: #### C MP, BNP #### [facility] [address] [place] [address] Dr. Yisel Liu Calcium [Mass/Vol] 9.7 mg/dL Normal 8.5-10.1 [facility] Comment on above: Performed By: #### C MP, BNP #### [facility] [address] [place] [address] Dr. Yisel Liu Chloride [Moles/Vol] 97 mmol/L Critically low 98-107 [facility] Comment on above: Performed By: #### C MP, BNP #### [facility] [address] [place] [address] Dr. Yisel Liu CO2 [Moles/Vol] 38.5 mmol/L Critically high 21.0-32.0 [facility] Comment on above: Performed By: #### C MP, BNP #### [facility] [address] [place] [address] Dr. Yisel Liu Creatinine [Mass/Vol] 1.67 mg/dL Critically high 0.55-1.02 [facility] Comment on above: Performed By: #### C MP, BNP #### [facility] [address] [address] [address] Yisel Liu EGFR-AF GERMAN 36 mL/min/1.73m2 Critically low >=60 [facility] Comment on above: Performed By: #### C MP, BNP #### [facility] [address] [place] [address] Dr. Yisel Liu EGFR-NON AF GERMAN 30 mL/min/1.73m2 Critically low >=60 [facility] Comment on above: Performed By: #### C MP, BNP #### [facility] [address] [place] [address] Dr. Yisel Liu Globulin (S) [Mass/Vol] 4.8 g/dL Normal [facility] Comment on above: Performed By: #### C MP, BNP #### [facility] [address] [place] [address] Dr. Yisel Liu Glucose [Mass/Vol] 159 mg/dL Critically high 74-[address] [facility] Comment on above: Performed By: #### C MP, BNP #### [facility] [address] [place] [address] Dr. Yisel Liu Potassium [Moles/Vol] 5.4 mmol/L Critically high 3.5-5.1 [facility] Comment on above: Performed By: #### C MP, BNP #### [facility] [address] [place] [address] Dr. Yisel Liu Protein [Mass/Vol] 7.5 g/dL Normal 6.4-8.2 [facility] Comment on above: Performed By: #### C MP, BNP #### [facility] [address] [place] [address] Dr. Yisel Liu Sodium [Moles/Vol] 141 mmol/L Normal 136-145 [facility] Comment on above: Performed By: #### C MP, BNP #### [facility] [address] [address] [address] Yisel Liu Urea nitrogen [Mass/Vol] 61.0 mg/dL Critically high 7.0-18.0 [facility] Comment on above: Performed By: #### C MP, BNP #### [facility] [address] [address] [address] Yisel Liu Urea nitrogen/Creatinine [Mass ratio] 36.5 mg/mg Normal [facility] Comment on above: Performed By: #### C MP, BNP #### [facility] [address] [place] [address] Dr. Yisel Liu XR CHEST 1 Von [...] KOBI TOMAS Date: 2022-02-26 05:15 Normal [facility] BNPon 02-25-2022 Natriuretic peptide B (Bld) [Mass/Vol] 3112.0 pg/mL Critically high <=1,800.0 [facility] Comment on above: Performed By: #### P HVEN #### [facility] [address] [place] [address] Dr. Yisel Liu CBC AUTO DIFFon 02-25-2022 BASO # 0.0 103/ul Normal 0.0-0.1 [facility] Comment on above: Performed By: #### D IG #### [facility] [address] [address] [address] Yisel Liu Basophils/100 WBC (Bld) 0.1 % Critically low 0.2-2.0 [facility] Comment on above: Performed By: #### D IG #### [facility] [address] [address] [address] Yisel Liu EO # 0.0 103/ul Normal 0.0-0.7 [facility] Comment on above: Performed By: #### D IG #### [facility] [address] [address] [address] Yisel Liu Eosinophils/100 WBC (Bld) 0.0 % Critically low 0.9-7.0 [facility] Comment on above: Performed By: #### D IG #### [facility] [address] [address] [address] Yisel Liu Erythrocyte distribution width (RBC) [Ratio] 16.7 % Critically high 11.0-15.0 [facility] Comment on above: Performed By: #### D IG #### [facility] [address] [place] [address] Dr. Yisel Liu Hematocrit (Bld) [Volume fraction] 38.4 % Normal 36.0-48.0 [facility] Comment on above: Performed By: #### D IG #### [facility] [address] [address] [address] Yisel Liu Hemoglobin (Bld) [Mass/Vol] 11.9 g/dL Critically low 12.0-16.0 [facility] Comment on above: Performed By: #### D IG #### [facility] [address] [address] [address] Yisel Liu IG # 0.09 10e3/ul Critically high 0.00-0.03 [facility] Comment on above: Performed By: #### D IG #### [facility] [address] [address] [address] Yisel Liu IG % 0.6 % Critically high 0.0-0.5 [facility] Comment on above: Performed By: #### D IG #### [facility] [address] [address] [address] Yisel Liu LYMPH # 0.7 103/ul Critically low 1.2-3.8 [facility] Comment on above: Performed By: #### D IG #### [facility] [address] [address] [address] Yisel Liu Lymphocytes/100 WBC (Bld) 5.0 % Critically low 20.5-60.0 [facility] Comment on above: Performed By: #### D IG #### [facility] [address] [place] [address] Dr. Yisel Liu MANUAL DIFF REQ NO Normal [facility] Comment on above: Performed By: #### D IG #### [facility] [address] [place] [address] Dr. Yisel Liu MCH (RBC) [Entitic mass] 28.0 pg Normal 26.7-34.0 [facility] Comment on above: Performed By: #### D IG #### [facility] [address] [place] [address] Dr. Yisel Liu MCHC (RBC) [Mass/Vol] 31.0 g/dL Normal 29.9-35.2 [facility] Comment on above: Performed By: #### D IG #### [facility] [address] [place] [address] Dr. Yisel Liu MCV (RBC) [Entitic vol] 90.4 fL Normal 81.0-99.0 [facility] Comment on above: Performed By: #### D IG #### [facility] [address] [place] [address] Dr. Yisel Liu MONO # 1.2 103/ul Critically high 0.3-0.8 [facility] Comment on above: Performed By: #### D IG #### [facility] [address] [place] [address] Dr. Yisel Liu Monocytes/100 WBC (Bld) 8.1 % Normal 1.7-12.0 [facility] Comment on above: Performed By: #### D IG #### [facility] [address] [place] [address] Dr. Yisel Liu NEUT # 12.2 103/ul Critically high 1.4-6.5 [facility] Comment on above: Performed By: #### D IG #### [facility] [address] [address] [address] Yisel Liu Neutrophils/100 WBC (Bld) 86.2 % Critically high 43.0-75.0 [facility] Comment on above: Performed By: #### D IG #### [facility] [address] [address] [address] Yisel Liu Platelet mean volume (Bld) [Entitic vol] 8.8 fL Critically low 9.5-13.5 [facility] Comment on above: Performed By: #### D IG #### [facility] [address] [address] [address] Yisel Liu PLT 317 103/ul Normal 150-450 [facility] Comment on above: Performed By: #### D IG #### [facility] [address] [place] [address] Dr. Yisel Liu RBC 4.25 106/ul Normal 4.20-5.40 [facility] Comment on above: Performed By: #### D IG #### [facility] [address] [place] [address] Dr. Yisel Liu WBC 14.1 103/ul Critically high 4.0-11.0 [facility] Comment on above: Performed By: #### D IG #### [facility] [address] [place] [address] Dr. Yisel Liu POINT OF CARE GLUCOSEon 12-0 Glucose [Mass/Vol] 312 mg/dL Critically high 74-[address] [facility] Comment on above: Performed By: #### P OCGLUC #### [facility] [address] [place] [address] Dr. Yisel Liu Glucose [Mass/Vol] 94 mg/dL Normal 74-106 [facility] Comment on above: Performed By: #### D IG #### [facility] [address] [address] [address] Yisel Liu Glucose [Mass/Vol] 260 mg/dL Critically high 74-[address] [facility] Comment on above: Performed By: #### C BC #### [facility] [address] [address] [address] Yisel Liu PROF 14(COMP METB)on 022 Albumin [Mass/Vol] 2.7 g/dL Critically low 3.4-5.0 [facility] Comment on above: Performed By: #### P HVEN #### [facility] [address] [address] [address] Yisel Liu Albumin/Globulin [Mass ratio] 0.5 {ratio} Normal [facility] Comment on above: Performed By: #### P HVEN #### [facility] [address] [address] [address] Yisel Liu ALP [Catalytic activity/Vol] 58 U/L Normal 46-116 [facility] Comment on above: Performed By: #### P HVEN #### [facility] [address] [place] [address] Dr. Yisel Liu ALT [Catalytic activity/Vol] 32 U/L Normal 14-59 [facility] Comment on above: Performed By: #### P HVEN #### [facility] [address] [address] [address] Yisel Liu Anion gap [Moles/Vol] 12.3 mmol/L Normal [facility] Comment on above: Performed By: #### P HVEN #### [facility] [address] [place] [address] Dr. Yisel Liu AST [Catalytic activity/Vol] 54 U/L Critically high 15-37 [facility] Comment on above: Performed By: #### P HVEN #### [facility] [address] [address] [address] Yisel Liu Bilirubin [Mass/Vol] 0.5 mg/dL Normal 0.2-1.0 [facility] Comment on above: Performed By: #### P HVEN #### [facility] [address] [address] [address] Yisel Liu Calcium [Mass/Vol] 9.6 mg/dL Normal 8.5-10.1 [facility] Comment on above: Performed By: #### P HVEN #### [facility] [address] [address] [address] Yisel Liu Chloride [Moles/Vol] 96 mmol/L Critically low 98-107 [facility] Comment on above: Performed By: #### P HVEN #### [facility] [address] [address] [address] Yisel Liu CO2 [Moles/Vol] 33.9 mmol/L Critically high 21.0-32.0 [facility] Comment on above: Performed By: #### P HVEN #### [facility] [address] [address] [address] Yisel Liu Creatinine [Mass/Vol] 1.42 mg/dL Critically high 0.55-1.02 [facility] Comment on above: Performed By: #### P HVEN #### [facility] [address] [place] [address] Dr. Yisel Liu EGFR-AF GERMAN 43 mL/min/1.73m2 Critically low >=60 [facility] Comment on above: Performed By: #### P HVEN #### [facility] [address] [address] [address] Yisel Liu EGFR-NON AF GERMAN 36 mL/min/1.73m2 Critically low >=60 [facility] Comment on above: Performed By: #### P HVEN #### [facility] [address] [address] [address] Yisel Liu Globulin (S) [Mass/Vol] 5.3 g/dL Normal [facility] Comment on above: Performed By: #### P HVEN #### [facility] [address] [address] [address] Yisel Liu Glucose [Mass/Vol] 236 mg/dL Critically high 74-106 [facility] Comment on above: Performed By: #### P HVEN #### [facility] [address] [address] [address] Yisel Liu Potassium [Moles/Vol] 4.2 mmol/L Normal 3.5-5.1 [facility] Comment on above: Performed By: #### P HVEN #### [facility] [address] [address] [address] Yisel Liu Protein [Mass/Vol] 8.0 g/dL Normal 6.4-8.2 [facility] Comment on above: Performed By: #### P HVEN #### [facility] [address] [address] [address] Yisel Liu Sodium [Moles/Vol] 138 mmol/L Normal 136-145 [facility] Comment on above: Performed By: #### P HVEN #### [facility] [address] [address] [address] Yisel Liu Urea nitrogen [Mass/Vol] 42.0 mg/dL Critically high 7.0-18.0 [facility] Comment on above: Performed By: #### P HVEN #### [facility] [address] [address] [address] Yisel Liu Urea nitrogen/Creatinine [Mass ratio] 29.6 mg/mg Normal [facility] Comment on above: Performed By: #### P HVEN #### [facility] [address] [address] [address] Yisel Liu XR CHEST 1 Von [...] by: ZENON TURNER Date: 2022-02-25 13:01 Normal [facility] XR CHEST 1 V EXAMINATION: XR [...] BRITTANY YBARRA Date: 2022-02-25 06:38 Normal [facility] BNPon 02-24-2022 Natriuretic peptide B (Bld) [Mass/Vol] 3585.0 pg/mL Critically high <=1,800.0 [facility] Comment on above: Performed By: #### C MP, BNP #### [facility] [address] [place] [address] Dr. Yisel Lui CBC AUTO DIFFon 02-24-2022 BASO # 0.0 103/ul Normal 0.0-0.1 [facility] Comment on above: Performed By: #### C BC #### [facility] [address] [place] [address] Dr. Yisel Liu Basophils/100 WBC (Bld) 0.2 % Normal 0.2-2.0 [facility] Comment on above: Performed By: #### C BC #### [facility] [address] [place] [address] Dr. Yisel Liu EO # 0.0 103/ul Normal 0.0-0.7 [facility] Comment on above: Performed By: #### C BC #### [facility] [address] [place] [address] Dr. Yisel Liu Eosinophils/100 WBC (Bld) 0.0 % Critically low 0.9-7.0 [facility] Comment on above: Performed By: #### C BC #### [facility] [address] [place] [address] Dr. Yisel Liu Erythrocyte distribution width (RBC) [Ratio] 16.4 % Critically high 11.0-15.0 [facility] Comment on above: Performed By: #### C BC #### [facility] [address] [place] [address] Dr. Yisel Liu Hematocrit (Bld) [Volume fraction] 37.7 % Normal 36.0-48.0 [facility] Comment on above: Performed By: #### C BC #### [facility] [address] [place] [address] Dr. Yisel Liu Hemoglobin (Bld) [Mass/Vol] 11.8 g/dL Critically low 12.0-16.0 [facility] Comment on above: Performed By: #### C BC #### [facility] [address] [place] [address] Dr. Yisel Liu IG # 0.04 10e3/ul Critically high 0.00-0.03 [facility] Comment on above: Performed By: #### C BC #### [facility] [address] [place] [address] Dr. Yisel Liu IG % 0.3 % Normal 0.0-0.5 [facility] Comment on above: Performed By: #### C BC #### [facility] [address] [place] [address] Dr. Yisel Liu LYMPH # 0.6 103/ul Critically low 1.2-3.8 [facility] Comment on above: Performed By: #### C BC #### [facility] [address] [place] [address] Dr. Yisel Liu Lymphocytes/100 WBC (Bld) 4.9 % Critically low 20.5-60.0 [facility] Comment on above: Performed By: #### C BC #### [facility] [address] [place] [address] Dr. Yisel Liu MANUAL DIFF REQ NO Normal [facility] Comment on above: Performed By: #### C BC #### [facility] [address] [place] [address] Dr. Yisel Liu MCH (RBC) [Entitic mass] 28.0 pg Normal 26.7-34.0 [facility] Comment on above: Performed By: #### C BC #### [facility] [address] [address] [address] Yisel Liu MCHC (RBC) [Mass/Vol] 31.3 g/dL Normal 29.9-35.2 [facility] Comment on above: Performed By: #### C BC #### [facility] [address] [address] [address] Yisel Liu MCV (RBC) [Entitic vol] 89.5 fL Normal 81.0-99.0 [facility] Comment on above: Performed By: #### C BC #### [facility] [address] [address] [address] Yisel Liu MONO # 0.8 103/ul Normal 0.3-0.8 [facility] Comment on above: Performed By: #### C BC #### [facility] [address] [address] [address] Yisel Liu Monocytes/100 WBC (Bld) 6.2 % Normal 1.7-12.0 [facility] Comment on above: Performed By: #### C BC #### [facility] [address] [address] [address] Yisel Liu NEUT # 11.5 103/ul Critically high 1.4-6.5 [facility] Comment on above: Performed By: #### C BC #### [facility] [address] [address] [address] Yisel Liu Neutrophils/100 WBC (Bld) 88.4 % Critically high 43.0-75.0 [facility] Comment on above: Performed By: #### C BC #### [facility] [address] [address] [address] Yisel Liu Platelet mean volume (Bld) [Entitic vol] 8.8 fL Critically low 9.5-13.5 [facility] Comment on above: Performed By: #### C BC #### [facility] [address] [address] [address] Yisel Liu PLT 361 103/ul Normal 150-450 [facility] Comment on above: Performed By: #### C BC #### [facility] [address] [address] [address] Yisel Liu RBC 4.21 106/ul Normal 4.20-5.40 [facility] Comment on above: Performed By: #### C BC #### [facility] [address] [place] [address] Dr. Yisel Liu WBC 13.0 103/ul Critically high 4.0-11.0 [facility] Comment on above: Performed By: #### C BC #### [facility] [address] [place] [address] Dr. Yisel Liu CULTURE URINEon 02-24-2022 CULTURE [...] Trimethoprim/Sulfamet hoxazole <=20 S F Normal [facility] Comment on above: Performed By: #### D IG #### [facility] [address] [place] [address] Dr. Yisel Liu PH VENOUS BLOODon 02-24-2022 PCO2 VENOUS 55.2 mmHg Critically high 40.0-52.0 [facility] Comment on above: Performed By: #### C BC #### [facility] [address] [place] [address] Dr. Yisel Liu pH VENOUS 7.439 Critically high 7.330-7.430 [facility] Comment on above: Performed By: #### C BC #### [facility] [address] [place] [address] Dr. Yisel Liu POINT OF CARE GLUCOSEon Glucose [Mass/Vol] 232 mg/dL Critically high 74-[address] [facility] Comment on above: Performed By: #### C MP, BNP #### [facility] [address] [place] [address] Dr. Yisel Liu Glucose [Mass/Vol] 198 mg/dL Critically high -[address] [facility] Comment on above: Performed By: #### C MP, BNP #### [facility] [address] [place] [address] Dr. Yisel Liu Glucose [Mass/Vol] 270 mg/dL Critically high -[address] [facility] Comment on above: Performed By: #### C MP, BNP #### [facility] [address] [place] [address] Dr. Yisel Liu Glucose [Mass/Vol] 324 mg/dL Critically high [facility] Comment on above: Performed By: #### D IG #### [facility] [address] [place] [address] Dr. Yisel Liu PROF 14(COMP METB)on 022 Albumin [Mass/Vol] 2.9 g/dL Critically low 3.4-5.0 Th [facility] Comment on above: Performed By: #### C MP, BNP #### [facility] [address] [place] [address] Dr. Yisel Liu Albumin/Globulin [Mass ratio] 0.5 {ratio} Normal [facility] Comment on above: Performed By: #### C MP, BNP #### [facility] [address] [place] [address] Dr. Yisel Liu ALP [Catalytic activity/Vol] 64 U/L Normal 46-116 [facility] Comment on above: Performed By: #### C MP, BNP #### [facility] [address] [place] [address] Dr. Yisel iLu ALT [Catalytic activity/Vol] 27 U/L Normal 14-59 [facility] Comment on above: Performed By: #### C MP, BNP #### [facility] [address] [place] [address] Dr. Yisel Liu Anion gap [Moles/Vol] 10.8 mmol/L Normal [facility] Comment on above: Performed By: #### C MP, BNP #### [facility] [address] [place] [address] Dr. Yisel Liu AST [Catalytic activity/Vol] 44 U/L Critically high 15-37 [facility] Comment on above: Performed By: #### C MP, BNP #### [facility] [address] [place] [address] Dr. Yisel Liu Bilirubin [Mass/Vol] 0.4 mg/dL Normal 0.2-1.0 [facility] Comment on above: Performed By: #### C MP, BNP #### [facility] [address] [place] [address] Dr. Yisel Liu Calcium [Mass/Vol] 9.2 mg/dL Normal 8.5-10.1 [facility] Comment on above: Performed By: #### C MP, BNP #### [facility] [address] [place] [address] Dr. Yisel Liu Chloride [Moles/Vol] 96 mmol/L Critically low 98-107 [facility] Comment on above: Performed By: #### C MP, BNP #### [facility] [address] [place] [address] Dr. Yisel Liu CO2 [Moles/Vol] 36.6 mmol/L Critically high 21.0-32.0 [facility] Comment on above: Performed By: #### C MP, BNP #### [facility] [address] [place] [address] Dr. Yisel Liu Creatinine [Mass/Vol] 1.22 mg/dL Critically high 0.55-1.02 [facility] Comment on above: Performed By: #### C MP, BNP #### [facility] [address] [place] [address] Dr. Yisel Liu EGFR-AF GERMAN 52 mL/min/1.73m2 Critically low >=60 [facility] Comment on above: Performed By: #### C MP, BNP #### [facility] [address] [place] [address] Dr. Yisel Liu EGFR-NON AF GERMAN 43 mL/min/1.73m2 Critically low >=60 [facility] Comment on above: Performed By: #### C MP, BNP #### [facility] [address] [place] [address] Dr. Yisel Liu Globulin (S) [Mass/Vol] 5.3 g/dL Normal [facility] Comment on above: Performed By: #### C MP, BNP #### [facility] [address] [place] [address] Dr. Yisel Liu Glucose [Mass/Vol] 265 mg/dL Critically high 74-106 T [facility] Comment on above: Performed By: #### C MP, BNP #### [facility] [address] [place] [address] Dr. Yisel Liu Potassium [Moles/Vol] 3.4 mmol/L Critically low 3.5-5.1 [facility] Comment on above: Performed By: #### C MP, BNP #### [facility] [address] [place] [address] Dr. Yisel Liu Protein [Mass/Vol] 8.2 g/dL Normal 6.4-8.2 [facility] Comment on above: Performed By: #### C MP, BNP #### [facility] [address] [place] [address] Dr. Yisel Liu Sodium [Moles/Vol] 140 mmol/L Normal 136-145 [facility] Comment on above: Performed By: #### C MP, BNP #### [facility] [address] [place] [address] Dr. Yisel Liu Urea nitrogen [Mass/Vol] 27.0 mg/dL Critically high 7.0-18.0 [facility] Comment on above: Performed By: #### C MP, BNP #### [facility] [address] [place] [address] Dr. Yisel Liu Urea nitrogen/Creatinine [Mass ratio] 22.1 mg/mg Normal [facility] Comment on above: Performed By: #### C MP, BNP #### [facility] [address] [place], [place] [id number] Dr. Yisel Liu T3, TOTAL (TRIIODOTHYRONINE) on 02-24-2022 T3, TOTAL 68 ng/dL Critically low 71-180 [facility] Comment on above: Performed By: #### C MP, BNP #### [facility] [address] [place] [address] Dr. Yisel Liu XR CHEST 1 Von [...] IDANIA CUEVAS Date: 2022-02-24 07:10 Normal [facility] BNPon 02-23-2022 Natriuretic peptide B (Bld) [Mass/Vol] 3654.0 pg/mL Critically high <=1,800.0 [facility] Comment on above: Performed By: #### C MP, BNP #### [facility] [address] [place] [address] Dr. Yisel Liu CBC AUTO DIFFon 02-23-2022 BASO # 0.0 103/ul Normal 0.0-0.1 [facility] Comment on above: Performed By: #### C BC #### [facility] [address] [place] [address] Dr. Yisel Liu Basophils/100 WBC (Bld) 0.0 % Critically low 0.2-2.0 [facility] Comment on above: Performed By: #### C BC #### [facility] [address] [place] [address] Dr. Yisel Liu EO # 0.0 103/ul Normal 0.0-0.7 [facility] Comment on above: Performed By: #### C BC #### [facility] [address] [place] [address] Dr. Yisel Liu Eosinophils/100 WBC (Bld) 0.0 % Critically low 0.9-7.0 [facility] Comment on above: Performed By: #### C BC #### [facility] [address] [place] [address] Dr. Yisle Liu Erythrocyte distribution width (RBC) [Ratio] 16.2 % Critically high 11.0-15.0 [facility] Comment on above: Performed By: #### C BC #### [facility] [address] [place] [address] Dr. Yisel Liu Hematocrit (Bld) [Volume fraction] 36.1 % Normal 36.0-48.0 [facility] Comment on above: Performed By: #### C BC #### [facility] [address] [place] [address] Dr. Yisel Liu Hemoglobin (Bld) [Mass/Vol] 11.5 g/dL Critically low 12.0-16.0 [facility] Comment on above: Performed By: #### C BC #### [facility] [address] [place] [address] Dr. Yisel Liu IG # 0.01 10e3/ul Normal 0.00-0.03 [facility] Comment on above: Performed By: #### C BC #### [facility] [address] [place] [address] Dr. Yisel Liu IG % 0.2 % Normal 0.0-0.5 [facility] Comment on above: Performed By: #### C BC #### [facility] [address] [place] [address] Dr. Yisel Liu LYMPH # 0.5 103/ul Critically low 1.2-3.8 [facility] Comment on above: Performed By: #### C BC #### [facility] [address] [place] [address] Dr. Yisel Liu Lymphocytes/100 WBC (Bld) 9.7 % Critically low 20.5-60.0 [facility] Comment on above: Performed By: #### C BC #### [facility] [address] [place] [address] Dr. Yisel Liu MANUAL DIFF REQ NO Normal [facility] Comment on above: Performed By: #### C BC #### [facility] [address] [place] [address] Dr. Yisel Liu MCH (RBC) [Entitic mass] 28.4 pg Normal 26.7-34.0 [facility] Comment on above: Performed By: #### C BC #### [facility] [address] [place] [address] Dr. Yisel Liu MCHC (RBC) [Mass/Vol] 31.9 g/dL Normal 29.9-35.2 [facility] Comment on above: Performed By: #### C BC #### [facility] [address] [place] [address] Dr. Yisel Liu MCV (RBC) [Entitic vol] 89.1 fL Normal 81.0-99.0 [facility] Comment on above: Performed By: #### C BC #### [facility] [address] [place] [address] Dr. Yisel Liu MONO # 0.2 103/ul Critically low 0.3-0.8 [facility] Comment on above: Performed By: #### C BC #### [facility] [address] [place] [address] Dr. Yisel Liu Monocytes/100 WBC (Bld) 3.6 % Normal 1.7-12.0 [facility] Comment on above: Performed By: #### C BC #### [facility] [address] [place] [address] Dr. Yisel Liu NEUT # 4.8 103/ul Normal 1.4-6.5 [facility] Comment on above: Performed By: #### C BC #### [facility] [address] [place] [address] Dr. Yisel Liu Neutrophils/100 WBC (Bld) 86.5 % Critically high 43.0-75.0 [facility] Comment on above: Performed By: #### C BC #### [facility] [address] [place] [address] Dr. Yisel Liu Platelet mean volume (Bld) [Entitic vol] 9.0 fL Critically low 9.5-13.5 [facility] Comment on above: Performed By: #### C BC #### [facility] [address] [place] [address] Dr. Yisel Liu PLT 278 103/ul Normal 150-450 [facility] Comment on above: Performed By: #### C BC #### [facility] [address] [address] [address] Yisel Liu RBC 4.05 106/ul Critically low 4.20-5.40 [facility] Comment on above: Performed By: #### C BC #### [facility] [address] [place] [address] Dr. Yisel Liu WBC 5.6 103/ul Normal 4.0-11.0 [facility] Comment on above: Performed By: #### C BC #### [facility] [address] [place] [address] Dr. Yisel Liu ECHOCARDIO M/2D COMPLETEon 1 04-26-2021 ECHOCARDIO M/2D COMPLETE Patient: STARLA SWEENEY Exam Date: 02/23/2022 : 1945 Gender:F Ordering : DR KARY CATHERINE . Admission #: [id number] Family : Order #: [id number] CLICK HERE TO VIEW EXAM ECHOCARDIOGRAM REPORT [...] (Peak Joseph): 1.55 cm2, 1.55 cm2 Deceleration Canadian: 1.84 m/s2 Pressure Half-Time: 561.41 ms Peak [...] Hill M.D. on 02/25/2022 at 12:52 Normal [facility] PH VENOUS BLOODon 02-23-2022 PCO2 VENOUS 48.0 mmHg Normal 40.0-52.0 [facility] Comment on above: Performed By: #### P HVEN #### [facility] [address] [place] [address] Dr. Yisel Liu pH VENOUS 7.479 Critically high 7.330-7.430 [facility] Comment on above: Performed By: #### P HVEN #### [facility] [address] [place] [address] Dr. Yisel Liu POINT OF CARE GLUCOSEon Glucose [Mass/Vol] 323 mg/dL Critically high [facility] Comment on above: Performed By: #### C MP, BNP #### [facility] [address] [place] [address] Dr. Yisel Liu Glucose [Mass/Vol] 372 mg/dL Critically high [address] [place] [address] Comment on above: Performed By: #### C MP, BNP #### [facility] [address] [place] [address] Dr. Yisel Liu Glucose [Mass/Vol] 347 mg/dL Critically high [facility] Comment on above: Performed By: #### D IG #### [facility] [address] [place] [address] Dr. Yisel Liu Glucose [Mass/Vol] 474 mg/dL Critically high [facility] [facility] Comment on above: Performed By: #### C MP, BNP #### [facility] [address] [place] [address] Dr. Yisel Liu PROF 14(COMP METB)on 022 Albumin [Mass/Vol] 2.8 g/dL Critically low 3.4-5.0 Th [facility] Comment on above: Performed By: #### C MP, BNP #### [facility] [address] [address] [address] Yisel Liu Albumin/Globulin [Mass ratio] 0.5 {ratio} Normal [facility] Comment on above: Performed By: #### C MP, BNP #### [facility] [address] [address] [address] Yisel Liu ALP [Catalytic activity/Vol] 72 U/L Normal 46-116 [facility] Comment on above: Performed By: #### C MP, BNP #### [facility] [address] [place] [address] Dr. Yisel Liu ALT [Catalytic activity/Vol] 14 U/L Normal 14-59 [facility] Comment on above: Performed By: #### C MP, BNP #### [facility] [address] [place] [address] Dr. Yisel Liu Anion gap [Moles/Vol] 11.3 mmol/L Normal [facility] Comment on above: Performed By: #### C MP, BNP #### [facility] [address] [place] [address] Dr. Yisel Liu AST [Catalytic activity/Vol] 23 U/L Normal 15-37 [facility] Comment on above: Performed By: #### C MP, BNP #### [facility] [address] [place] [address] Dr. Yisel Liu Bilirubin [Mass/Vol] 0.5 mg/dL Normal 0.2-1.0 [facility] Comment on above: Performed By: #### C MP, BNP #### [facility] [address] [address] [address] Yisel Liu Calcium [Mass/Vol] 9.0 mg/dL Normal 8.5-10.1 [facility] Comment on above: Performed By: #### C MP, BNP #### [facility] [address] [address] [address] Yisel Liu Chloride [Moles/Vol] 92 mmol/L Critically low 98-107 [facility] Comment on above: Performed By: #### C MP, BNP #### [facility] [address] [place] [address] Dr. Yisel Liu CO2 [Moles/Vol] 34.8 mmol/L Critically high 21.0-32.0 [facility] Comment on above: Performed By: #### C MP, BNP #### [facility] [address] [address] [address] Yisel Liu Creatinine [Mass/Vol] 1.00 mg/dL Normal 0.55-1.02 [facility] Comment on above: Performed By: #### C MP, BNP #### [facility] [address] [place] [address] Dr. Yisel Liu EGFR-AF GERMAN >60 Normal >=60 [facility] Comment on above: Performed By: #### C MP, BNP #### [facility] [address] [place] [address] Dr. Yisel Liu EGFR-NON AF GERMAN 54 mL/min/1.73m2 Critically low >=60 [facility] Comment on above: Performed By: #### C MP, BNP #### [facility] [address] [place] [address] Dr. Yisel Liu Globulin (S) [Mass/Vol] 5.5 g/dL Normal [facility] Comment on above: Performed By: #### C MP, BNP #### [facility] [address] [place] [address] Dr. Yisel Liu Glucose [Mass/Vol] 416 mg/dL Critically high 74-106 [facility] Comment on above: Performed By: #### C MP, BNP #### [facility] [address] [place] [address] Dr. Yisel Liu Potassium [Moles/Vol] 3.1 mmol/L Critically low 3.5-5.1 [facility] Comment on above: Performed By: #### C MP, BNP #### [facility] [address] [address] [address] Yisel Liu Protein [Mass/Vol] 8.3 g/dL Critically high 6.4-8.2 [facility] Comment on above: Performed By: #### C MP, BNP #### [facility] [address] [address] [address] Yisel Liu Sodium [Moles/Vol] 135 mmol/L Critically low 136-145 Th [facility] Comment on above: Performed By: #### C MP, BNP #### [facility] [address] [address] [address] Yisel Liu Urea nitrogen [Mass/Vol] 20.0 mg/dL Critically high 7.0-18.0 [facility] Comment on above: Performed By: #### C MP, BNP #### [facility] [address] [address] [address] Yisel Liu Urea nitrogen/Creatinine [Mass ratio] 20.0 mg/mg Normal [facility] Comment on above: Performed By: #### C MP, BNP #### [facility] [address] [address] [address] Yisel Liu XR CHEST 1 Von [...] by: BRITTANY YBARRA Date: 2022-02-23 07:12 Normal [facility] AMMONIAon 02-22-2022 Ammonia (P) [Moles/Vol] 36 umol/L Critically high 11-32 [facility] Comment on above: Performed By: #### C MP, BNP #### [facility] [address] [place] [address] Dr. Yisel [facility] 02 MODE SIMPLE MASK Normal [facility] Comment on above: Performed By: #### A BG #### [facility] [address] [place] [address] Dr. Yisel Liu ALLENS TEST Positive [facility] Comment on above: Performed By: #### A BG #### [facility] [address] [place] [address] Dr. Yisel Liu Base excess Calc (Bld) [Moles/Vol] 0.7 mmol/L Normal -2.0-2.0 [facility] Comment on above: Performed By: #### A BG #### [facility] [address] [place] [address] Dr. Yisel Liu BIPAP PRESSURE [facility] Comment on above: Performed By: #### A BG #### [facility] [address] [place] [address] Dr. Yisel Liu CPAP [facility] Comment on above: Performed By: #### A BG #### [facility] [address] [place] [address] Dr. Yisel Liu FIO2 [facility] Comment on above: Performed By: #### A BG #### [facility] [address] [place] [address] Dr. Yisel Liu HCO3 (Bld) [Moles/Vol] 28.8 mmol/L Critically high 22.0-26.0 [facility] Comment on above: Performed By: #### A BG #### [facility] [address] [place] [address] Dr. Yisel Liu LPM 6 [facility] Comment on above: Performed By: #### A BG #### [facility] [address] [place] [address] Dr. Yisel Liu MINUTE VOLUME Normal [facility] Comment on above: Performed By: #### A BG #### [facility] [address] [address] [address] Yisel Liu Oxygen (Bld) [Partial pressure] 82.6 mm[Hg] Normal 80.0-100.0 [facility] Comment on above: Performed By: #### A BG #### [facility] [address] [place] [address] Dr. Yisel Liu Oxygen saturation in Blood 93.0 % Critically low 95.0-100.0 [facility] Comment on above: Performed By: #### A BG #### [facility] [address] [place] [address] Dr. Yisel Liu PCO2 74.3 mmHg Critically high 35.0-45.0 [facility] Comment on above: Performed By: #### A BG #### [facility] [address] [place] [address] Dr. Yisel Liu [facility] Comment on above: Performed By: #### A BG #### [facility] [address] [place] [address] Dr. Yisel Liu pH (Bld) 7.197 [pH] Critically low 7.350-7.450 [facility] Comment on above: Performed By: #### A BG #### [facility] [address] [place] [address] Dr. Yisel Liu [facility] Comment on above: Performed By: #### A BG #### [facility] [address] [place] [address] Dr. Yisel Liu PS [facility] Comment on above: Performed By: #### A BG #### [facility] [address] [place] [address] Dr. Yisel Liu PUNCTURE SITE RR [facility] Comment on above: Performed By: #### A BG #### [facility] [address] [place] [address] Dr. Yisel Liu RATE [facility] Comment on above: Performed By: #### A BG #### [facility] [address] [place] [address] Dr. Yisel Liu [facility] Comment on above: Performed By: #### A BG #### [facility] [address] [place] [address] Dr. Yisel Liu [facility] Comment on above: Performed By: #### A BG #### [facility] [address] [place] [address] Dr. Yisel Liu BNPon 02-22-2022 Natriuretic peptide B (Bld) [Mass/Vol] 2771.0 pg/mL Critically high <=1,800.0 [facility] Comment on above: Performed By: #### C MP, BNP #### [facility] [address] [place] [address] Dr. Yisel Liu CARDIAC MIKEY 3-6on 2 CK [Catalytic activity/Vol] 18 U/L Critically low 26-192 [facility] Comment on above: Performed By: #### C BC #### [facility] [address] [place] [address] Dr. Yisel Liu CK.MB [Mass/Vol] ng/mL Normal <=3.60 The [facility] Comment on above: Performed By: #### C BC #### [facility] [address] [place] [address] Dr. Yisel Liu HSTROP 10.3 pg/mL Normal 4.0-51.3 [facility] Comment on above: Result Comment: CUT- OFF POINTS HAVE BEEN ESTABLISHED BASED ON THE FOURTH UNIVERSAL DEFINITIONS OF MYOCARDIAL INFARCTION. THE UPPER REFERENCE LIMIT (URL) OF TROPONIN, DEFINED THE 99TH PERCENTILE OF cTnI DISTRIBUTION IN A REFERENCE POPULATION, HAS BEEN CONFIRMED THE DECISION THRESHOLD FOR LA DIAGNOSIS. Performed By: #### C BC #### [facility] [address] [place] [address] Dr. Yisel Liu CK [Catalytic activity/Vol] 36 U/L Normal 26-192 [facility] Comment on above: Performed By: #### C MP, BNP #### [facility] [address] [place] [address] Dr. Yisel Liu CK.MB [Mass/Vol] ng/mL Normal <=3.60 [facility] Comment on above: Performed By: #### C MP, BNP #### [facility] [address] [place] [address] Dr. Yisel Liu HSTROP 9.8 pg/mL Normal 4.0-51.3 [facility] Comment on above: Result Comment: CUT- OFF POINTS HAVE BEEN ESTABLISHED BASED ON THE FOURTH UNIVERSAL DEFINITIONS OF MYOCARDIAL INFARCTION. THE UPPER REFERENCE LIMIT (URL) OF TROPONIN, DEFINED THE 99TH PERCENTILE OF cTnI DISTRIBUTION IN A REFERENCE POPULATION, HAS BEEN CONFIRMED THE DECISION THRESHOLD FOR LA DIAGNOSIS. Performed By: #### C MP, BNP #### [facility] [address] [place] [address] Dr. Yisel Liu CK [Catalytic activity/Vol] 15 U/L Critically low 26-192 [facility] Comment on above: Performed By: #### C MP, BNP #### [facility] [address] [place] [address] Dr. Yisel Liu CK.MB [Mass/Vol] ng/mL Normal <=3.60 [facility] Comment on above: Performed By: #### C MP, BNP #### [facility] [address] [place] [address] Dr. Yisel Liu HSTROP 9.7 pg/mL Normal 4.0-51.3 [facility] Comment on above: Result Comment: CUT- OFF POINTS HAVE BEEN ESTABLISHED BASED ON THE FOURTH UNIVERSAL DEFINITIONS OF MYOCARDIAL INFARCTION. THE UPPER REFERENCE LIMIT (URL) OF TROPONIN, DEFINED THE 99TH PERCENTILE OF cTnI DISTRIBUTION IN A REFERENCE POPULATION, HAS BEEN CONFIRMED THE DECISION THRESHOLD FOR LA DIAGNOSIS. Performed By: #### C MP, BNP #### [facility] [address] [place] [address] Dr. Yisel Liu CK [Catalytic activity/Vol] 8 U/L Critically low 26-192 [facility] Comment on above: Performed By: #### C MREP #### [facility] [address] [place] [address] Dr. Yisel Liu Performed By: #### D IG #### [facility] [address] [place] [address] Dr. Yisel Liu CK.MB [Mass/Vol] ng/mL Normal <=3.60 [facility] Comment on above: Performed By: #### C MREP #### [facility] [address] [place] [address] Dr. Yisel Liu Performed By: #### D IG #### [facility] [address] [place] [address] Dr. Yisel Liu HSTROP 9.4 pg/mL Normal 4.0-51.3 [facility] Comment on above: Result Comment: CUT- OFF POINTS HAVE BEEN ESTABLISHED BASED ON THE FOURTH UNIVERSAL DEFINITIONS OF MYOCARDIAL INFARCTION. THE UPPER REFERENCE LIMIT (URL) OF TROPONIN, DEFINED THE 99TH PERCENTILE OF cTnI DISTRIBUTION IN A REFERENCE POPULATION, HAS BEEN CONFIRMED THE DECISION THRESHOLD FOR LA DIAGNOSIS. Performed By: #### C MREP #### [facility] [address] [place] [address] Dr. Yisel Liu CARDIAC MIKEY ADMITon 022 HSTROP 11.1 pg/mL Normal 4.0-51.3 [facility] Comment on above: Result Comment: CUT- OFF POINTS HAVE BEEN ESTABLISHED BASED ON THE FOURTH UNIVERSAL DEFINITIONS OF MYOCARDIAL INFARCTION. THE UPPER REFERENCE LIMIT (URL) OF TROPONIN, DEFINED THE 99TH PERCENTILE OF cTnI DISTRIBUTION IN A REFERENCE POPULATION, HAS BEEN CONFIRMED THE DECISION THRESHOLD FOR LA DIAGNOSIS. Performed By: #### D IG #### [facility] [address] [place] [address] Dr. Yisel Liu YULI 16 ng/mL Normal 9-82 [facility] Comment on above: Performed By: #### D IG #### [facility] [address] [place] [address] Dr. Yisel Liu CBC AUTO DIFFon 02-22-2022 BASO # 0.0 103/ul Normal 0.0-0.1 [facility] Comment on above: Performed By: #### C BC #### [facility] [address] [place] [address] Dr. Yisel Liu Basophils/100 WBC (Bld) 0.2 % Normal 0.2-2.0 [facility] Comment on above: Performed By: #### C BC #### [facility] [address] [place] [address] Dr. Yisel Liu EO # 0.1 103/ul Normal 0.0-0.7 [facility] Comment on above: Performed By: #### C BC #### [facility] [address] [place] [address] Dr. Yisel Liu Eosinophils/100 WBC (Bld) 0.7 % Critically low 0.9-7.0 [facility] Comment on above: Performed By: #### C BC #### [facility] [address] [place] [address] Dr. Yisel Liu Erythrocyte distribution width (RBC) [Ratio] 17.0 % Critically high 11.0-15.0 [facility] Comment on above: Performed By: #### C BC #### [facility] [address] [place] [address] Dr. Yisel Liu Hematocrit (Bld) [Volume fraction] 33.1 % Critically low 36.0-48.0 [facility] Comment on above: Performed By: #### C BC #### [facility] [address] [place] [address] Dr. Yisel Liu Hemoglobin (Bld) [Mass/Vol] 10.0 g/dL Critically low 12.0-16.0 [facility] Comment on above: Performed By: #### C BC #### [facility] [address] [place] [address] Dr. Yisel Liu IG # 0.08 10e3/ul Critically high 0.00-0.03 [facility] Comment on above: Performed By: #### C BC #### [facility] [address] [place] [address] Dr. Yisel Liu IG % 0.9 % Critically high 0.0-0.5 [facility] Comment on above: Performed By: #### C BC #### [facility] [address] [place] [address] Dr. Yisel Liu LYMPH # 0.8 103/ul Critically low 1.2-3.8 [facility] Comment on above: Performed By: #### C BC #### [facility] [address] [address] [address] Yisel Liu Lymphocytes/100 WBC (Bld) 9.2 % Critically low 20.5-60.0 [facility] Comment on above: Performed By: #### C BC #### [facility] [address] [address] [address] Yisel Liu MANUAL DIFF REQ NO Normal [facility] Comment on above: Performed By: #### C BC #### [facility] [address] [place] [address] Dr. Yisel Liu MCH (RBC) [Entitic mass] 28.3 pg Normal 26.7-34.0 [facility] Comment on above: Performed By: #### C BC #### [facility] [address] [place] [address] Dr. Yisel Liu MCHC (RBC) [Mass/Vol] 30.2 g/dL Normal 29.9-35.2 [facility] Comment on above: Performed By: #### C BC #### [facility] [address] [place] [address] Dr. Yisel Liu MCV (RBC) [Entitic vol] 93.8 fL Normal 81.0-99.0 [facility] Comment on above: Performed By: #### C BC #### [facility] [address] [place] [address] Dr. Yisel Liu MONO # 0.8 103/ul Normal 0.3-0.8 [facility] Comment on above: Performed By: #### C BC #### [facility] [address] [place] [address] Dr. Yisel Liu Monocytes/100 WBC (Bld) 8.7 % Normal 1.7-12.0 [facility] Comment on above: Performed By: #### C BC #### [facility] [address] [place] [address] Dr. Yisel Liu NEUT # 6.9 103/ul Critically high 1.4-6.5 [facility] Comment on above: Performed By: #### C BC #### [facility] [address] [address] [address] Yisel Liu Neutrophils/100 WBC (Bld) 80.3 % Critically high 43.0-75.0 [facility] Comment on above: Performed By: #### C BC #### [facility] [address] [address] [address] Yisel Liu Platelet mean volume (Bld) [Entitic vol] 8.8 fL Critically low 9.5-13.5 [facility] Comment on above: Performed By: #### C BC #### [facility] [address] [address] [address] Yisel Liu PLT 269 103/ul Normal 150-450 [facility] Comment on above: Performed By: #### C BC #### [facility] [address] [address] [address] Yisel Liu RBC 3.53 106/ul Critically low 4.20-5.40 [facility] Comment on above: Performed By: #### C BC #### [facility] [address] [address] [address] Yisel Liu WBC 8.7 103/ul Normal 4.0-11.0 [facility] Comment on above: Performed By: #### C BC #### [facility] [address] [address] [address] HEAD WO CONon [...] KARSTEN MUJICA Date: 2022-02-22 06:27 Normal [facility] CTA CHEST WO W CONon [...] ZENON TURNER Date: 2022-02-22 08:00 Normal [facility] CULTURE BLOODon 02-22-2022 Microscopic examination of blood, culture Culture Observations: NO GROWTH AT 5 DAYS. Normal [facility] Comment on above: Performed By: #### D IG #### [facility] [address] [place] [address] Dr. Yisel Liu Covid-19 PCR ([facility])on 12-0 4-2022 SARS-CoV-2 (COVID-19) RNA JACINTA+probe Ql (Unsp spec) Not detected Normal NOT DETECTED [facility] Comment on above: Result Comment: [...] for this test is supported by the [place] [employer]'s declaration that [...] used). Performed By: #### C BC #### [facility] [address] [place] [address] Dr. Yisel Liu DIGOXINon 02-22-2022 DIG 0.5 ng/mL Critically low 0.9-2.0 [facility] Comment on above: Performed By: #### D IG #### [facility] [address] [place] [address] Dr. Yisel Liu ER URINE PROFILEon 2 Bilirubin Ql (U) Negative Normal NEGATIVE [facility] Comment on above: Performed By: #### P HVEN #### [facility] [address] [place] [address] Dr. Yisel Liu Clarity (U) CLEAR Normal CLEAR [facility] Comment on above: Performed By: #### P HVEN #### [facility] [address] [place] [address] Dr. Yisel Liu Color (U) YELLOW Normal YELLOW [facility] Comment on above: Performed By: #### P HVEN #### [facility] [address] [place] [address] Dr. Yisel Liu ERUNGUYỄN A micrscopic examination will be performed if indicated. Normal [facility] Comment on above: Performed By: #### P HVEN #### [facility] [address] [address] [address] Yisel Liu Glucose Ql (U) Negative Normal NEGATIVE [facility] Comment on above: Performed By: #### P HVEN #### [facility] [address] [place] [address] Dr. Yisel Liu Hemoglobin Ql (U) Negative Normal NEGATIVE [facility] Comment on above: Performed By: #### P HVEN #### [facility] [address] [address] [address] Yisel Liu Ketones Ql (U) TRACE Abnormal NEGATIVE [facility] Comment on above: Performed By: #### P HVEN #### [facility] [address] [place] [address] Dr. Yisel Liu LEUKOCYTES TRACE Abnormal NEGATIVE [facility] Comment on above: Performed By: #### P HVEN #### [facility] [address] [place] [address] Dr. Yisel Liu Nitrite Ql (U) Positive Abnormal NEGATIVE [facility] Comment on above: Performed By: #### P HVEN #### [facility] [address] [place] [address] Dr. Yisel Liu pH (U) 5.5 [pH] Normal 5-9 [facility] Comment on above: Performed By: #### P HVEN #### [facility] [address] [place] [address] Dr. Yisel Liu SPEC GRAVITY >=1.030 Abnormal 1.005-<=1.025 [facility] Comment on above: Performed By: #### P HVEN #### [facility] [address] [place] [address] Dr. Yisel Liu UA PROTEIN TRACE Normal NEGATIVE/ TRACE [facility] Comment on above: Performed By: #### P HVEN #### [facility] [address] [place] [address] Dr. Yisel Liu UR MICRO IND INDICATED Normal [facility] Comment on above: Performed By: #### P HVEN #### [facility] [address] [place] [address] Dr. Yisel Liu Urobilinogen Qn (U) 1.0 {Krystian'U}/dL Normal 0.2 - 1. 0 [facility] Comment on above: Performed By: #### P HVEN #### [facility] [address] [place] [address] Dr. Yisel Liu INFLUENZA A AND B AGon 02-22 INFLUBNEGH SEE BELOW Normal [facility] Comment on above: Result Comment: Nega tive for Flu B protein antigen. Infection due to Flu B cannot be ruled out. Flu B antigen in the sample may be below the detection limit of the test. Performed By: #### C MP, BNP #### [facility] [address] [place] [address] Dr. Yisel Liu INFLUENZA A AG Positive Abnormal NEGATIVE SEE COMMENT [facility] Comment on above: Performed By: #### C MP, BNP #### [facility] [address] [place] [address] Dr. Yisel Liu INFLUENZA B AG Negative Normal NEGATIVE SEE COMMENT [facility] Comment on above: Performed By: #### C MP, BNP #### [facility] [address] [place] [address] Dr. Yisel Liu INFLUPOSH SEE BELOW Normal [facility] Comment on above: Result Comment: NOTE : Live attenuated influenzae vaccine viruses can cause a positive result for a rapid influenza diagnostic test if administered up to 7 days prior to rapid testing. Performed By: #### C MP, BNP #### [facility] [address] [place] [address] Dr. Yisel Liu INTERNAL CONTROLS Within Normal Limits Normal Wi thin Normal Limits [facility] Comment on above: Performed By: #### C MP, BNP #### [facility] [address] [place] [address] Dr. Yisel Liu LACTATE/LACTIC ACIDon 2021 Lactate [Moles/Vol] 4.1 mmol/L Critically high 0.4-1.9 [facility] Comment on above: Performed By: #### C MP, BNP #### [facility] [address] [address] [address] Yisel Liu Lactate [Moles/Vol] 3.3 mmol/L Critically high 0.4-1.9 [facility] Comment on above: Performed By: #### C BC #### [facility] [address] [address] [address] Yisel Liu Lactate [Moles/Vol] 3.2 mmol/L Critically high 0.4-1.9 [facility] Comment on above: Performed By: #### C BC #### [facility] [address] [place] [address] Dr. Yisel Liu MAGNESIUMon 02-22-2022 Magnesium [Mass/Vol] 1.6 mg/dL Critically low 1.8-2.4 [facility] Comment on above: Performed By: #### C BC #### [facility] [address] [place] [address] Dr. Yisel Liu OCC BLD IMMUNOASSAYon 2021 OCCULT BLOOD Negative Normal NEGATIVE [facility] Comment on above: Performed By: #### C BC #### [facility] [address] [place] [address] Dr. Yisel Liu PH VENOUS BLOODon 02-22-2022 PCO2 VENOUS 44.3 mmHg Normal 40.0-52.0 [facility] Comment on above: Performed By: #### C MP, BNP #### [facility] [address] [place] [address] Dr. Yisel Liu pH VENOUS 7.410 Normal 7.330-7.430 [facility] Comment on above: Performed By: #### C MP, BNP #### [facility] [address] [place] [address] Dr. Yisel Liu POINT OF CARE GLUCOSEon Glucose [Mass/Vol] 313 mg/dL Critically high [address] [place] [address] Comment on above: Performed By: #### P OCGLUC #### [facility] [address] [place] [address] Dr. Yisel Liu Glucose [Mass/Vol] 240 mg/dL Critically high [address] [place] [address] Comment on above: Performed By: #### C MP, BNP #### [facility] [address] [address] [address] Yisel Liu Glucose [Mass/Vol] 226 mg/dL Critically high 74-[address] [facility] Comment on above: Performed By: #### C MP, BNP #### [facility] [address] [address] [address] Yisel Liu PROF CHEM 8 (BAS METB)on Anion gap [Moles/Vol] 11.2 mmol/L Normal [facility] Comment on above: Performed By: #### D IG #### [facility] [address] [place] [address] Dr. Yisel Liu Calcium [Mass/Vol] 9.0 mg/dL Normal 8.5-10.1 [facility] Comment on above: Performed By: #### D IG #### [facility] [address] [place] [address] Dr. Yisel Liu Chloride [Moles/Vol] 100 mmol/L Normal 98-107 [facility] Comment on above: Performed By: #### D IG #### [facility] [address] [place] [address] Dr. Yisel Liu CO2 [Moles/Vol] 32.1 mmol/L Critically high 21.0-32.0 [facility] Comment on above: Performed By: #### D IG #### [facility] [address] [place] [address] Dr. Yisel Liu Creatinine [Mass/Vol] 0.71 mg/dL Normal 0.55-1.02 [facility] Comment on above: Performed By: #### D IG #### [facility] [address] [place] [address] Dr. Yisel Liu EGFR-AF GERMAN >60 Normal >=60 [facility] Comment on above: Performed By: #### D IG #### [facility] [address] [place] [address] Dr. Yisel Liu EGFR-NON AF GERMAN >60 Normal >=60 [facility] Comment on above: Performed By: #### D IG #### [facility] [address] [address] [address] Yisel Liu Glucose [Mass/Vol] 118 mg/dL Critically high 74-106 [facility] Comment on above: Performed By: #### D IG #### [facility] [address] [address] [address] Yisel Liu Potassium [Moles/Vol] 4.3 mmol/L Normal 3.5-5.1 [facility] Comment on above: Performed By: #### D IG #### [facility] [address] [address] [address] Yisel Liu Sodium [Moles/Vol] 139 mmol/L Normal 136-145 [facility] Comment on above: Performed By: #### D IG #### [facility] [address] [address] [address] Yisel Liu Urea nitrogen [Mass/Vol] 14.0 mg/dL Normal 7.0-18.0 [facility] Comment on above: Performed By: #### D IG #### [facility] [address] [address] [address] Yisel Liu Urea nitrogen/Creatinine [Mass ratio] 19.7 mg/mg Normal [facility] Comment on above: Performed By: #### D IG #### [facility] [address] [address] [address] Yisel Liu T4on 02-22-2022 T4 [Mass/Vol] 9.40 ug/dL Normal 4.80-13.90 [facility] Comment on above: Performed By: #### C BC #### [facility] [address] [address] [address] Yisel Liu TSHon 02-22-2022 TSH 1.438 uIU/mL Normal 0.358-3.740 [facility] Comment on above: Performed By: #### C BC #### [facility] [address] [address] [address] Yisel Liu URINE MICROSCOPIC ONLYon BACTERIA LARGE Abnormal NONE SEEN [facility] Comment on above: Performed By: #### P HVEN #### [facility] [address] [address] [address] Yisel Liu Bacteria identified Cx Nom (U) INDICATED Normal [facility] Comment on above: Performed By: #### P HVEN #### [facility] [address] [place] [address] Dr. Yisel Liu CAST NONE SEEN Normal NONE SEEN [facility] Comment on above: Performed By: #### P HVEN #### [facility] [address] [place] [address] Dr. Yisel Liu Crystals LM Nom (Urine sed) NONE SEEN Normal NONE SEEN [facility] Comment on above: Performed By: #### P HVEN #### [facility] [address] [place] [address] Dr. Yisel Liu Epithelial cells LM Ql (Urine sed) FEW Abnormal NONE SEEN /RARE [facility] Comment on above: Performed By: #### P HVEN #### [facility] [address] [place] [address] Dr. Yisel Liu MUCOUS TRACE Abnormal NONE SEEN [facility] Comment on above: Performed By: #### P HVEN #### [facility] [address] [place] [address] Dr. Yisel Liu RBC 0-2 Normal 0-2 [facility] Comment on above: Performed By: #### P HVEN #### [facility] [address] [place] [address] Dr. Yisel Liu WBC (U) [#/Vol] /uL Abnormal NONE SEEN [facility] Comment on above: Performed By: #### P HVEN #### [facility] [address] [place] [address] Dr. Yisel Liu XR CHEST 1 Von [...] by: ANUSHKA FLANAGAN Date: 2022-02-22 07:17 Normal [facility] Vital Signs Date Time Vital Sign Value Performing Clinician Facility 07-13-2024 13:04-0400 Body height 165.1 cm Severo Brown DPM Work Phone: [facility] 07-13-2024 13:04-0400 Body mass index (BMI) [Ratio] 30.62 kg/m2 Severo Brown DPM Work Phone: [facility] 07-13-2024 13:04-0400 Body weight 83.46 kg Severo Brown DPM Work Phone: [facility] 07-13-2024 13:04-0400 Respiratory rate 16 /min Severo Brown DPM Work Phone: [facility] 05-04-2024 13:40-0500 Body height 165.1 cm Severo Brown DPM Work Phone: [facility] 05-04-2024 13:40-0500 Body mass index (BMI) [Ratio] 30.62 kg/m2 Severo Brown DPM Work Phone: [facility] 05-04-2024 13:40-0500 Body weight 83.46 kg Severo Brown DPM Work Phone: [facility] 05-04-2024 13:40-0500 Respiratory rate 18 /min Severo Brown DPM Work Phone: [facility] 02-24-2024 13:36-0500 Body height 165.1 cm Severo Brown DPM Work Phone: [facility] 02-24-2024 13:36-0500 Body mass index (BMI) [Ratio] 30.62 kg/m2 Severo Brown DPM Work Phone: [facility] 02-24-2024 13:36-0500 Body weight 83.46 kg Severo Brown DPM Work Phone: [facility] 02-24-2024 13:36-0500 Respiratory rate 16 /min Severo Milton DPM Work Phone: [facility] 02-03-2024 14:28-0500 Body height 165.1 cm Severo Milton DPM Work Phone: [facility] 02-03-2024 14:28-0500 Body mass index (BMI) [Ratio] 30.62 kg/m2 Severo Milton DPM Work Phone: [facility] 02-03-2024 14:28-0500 Body weight 83.46 kg Severo Milton DPM Work Phone: [facility] 02-03-2024 14:28-0500 Diastolic blood pressure 79 mm[Hg] Severo Milton DPM Work Phone: [facility] 02-03-2024 14:28-0500 Heart rate 82 /min Severo Milton DPM Work Phone: [facility] 02-03-2024 14:28-0500 Systolic blood pressure 129 mm[Hg] Severo Milton DPM Work Phone: [facility] 01-13-2024 13:56-0400 Body height 165.1 cm Severo Milton DPM Work Phone: [facility] 01-13-2024 13:56-0400 Body mass index (BMI) [Ratio] 30.62 kg/m2 Severo Milton DPM Work Phone: [facility] 01-13-2024 13:56-0400 Body weight 83.46 kg Severo Milton DPM Work Phone: [facility] 01-13-2024 13:56-0400 Diastolic blood pressure 77 mm[Hg] Severo Milton DPM Work Phone: [facility] 01-13-2024 13:56-0400 Heart rate 72 /min Severo Milton DPM Work Phone: [facility] 01-13-2024 13:56-0400 Systolic blood pressure 125 mm[Hg] Severo Milton DPM Work Phone: [facility] 09-09-2023 16:21-0400 Body temperature 98.2 [degF] Jaguar Cobos MD Work Phone: [facility] 09-09-2023 16:21-0400 Diastolic blood pressure 61 mm[Hg] Jaguar Cobos MD Work Phone: [facility] 09-09-2023 16:21-0400 Heart rate 91 /min Jaguar Cobos MD Work Phone: [facility] [employer] 09-09-2023 16:21-0400 Respiratory rate 18 /min Jaguar Cobos MD Work Phone: [facility] 09-09-2023 16:21-0400 SaO2% (BldA) [Mass fraction] 97 % Jaguar Cobos MD Work Phone: [facility] 09-09-2023 16:21-0400 Systolic blood pressure 101 mm[Hg] Jaguar Cobos MD Work Phone: [facility] 09-08-2023 15:07-0400 Body height 167.6 cm Jaguar Cobos MD Work Phone: [facility] [employer] 09-08-2023 15:07-0400 Body mass index (BMI) [Ratio] 29.89 kg/m2 Jaguar Cobos MD Work Phone: [facility] [employer] 09-08-2023 15:07-0400 Body weight 84 kg Jaguar Cobos MD Work Phone: [facility] [employer] Encounters Encounter Date Encounter Type Care Provider Facility Start: 07-13-2024 End: 07-13-2024 Bamboo flowsheet Severo Milton DPM Work Phone: [facility] Start: 07-13-2024 End: 07-13-2024 Bamboo flowsheet Severo Milton DPM Work Phone: [facility] Start: 07-13-2024 End: 07-13-2024 Office outpatient visit 15 minutes Severo Milton DPM Work Phone: [facility] Comment on above: Dry gangrene (CMS/HC C) (Primary Dx); Diabetes mellitus due to underlying condition with diabetic polyneuropathy, unspecified whether fpc insulin use (CMS/HCC); Pain due to onychomycosis of toenails of both feet Start: 07-13-2024 End: 07-13-2024 ambulatory SEVERO MILTON Not Available Start: 05-04-2024 End: 05-04-2024 Office outpatient visit 15 minutes Severo Milton DPM Work Phone: [facility] Comment on above: Dry gangrene (CMS/HC C) (Primary Dx); Diabetes mellitus due to underlying condition with diabetic polyneuropathy, unspecified whether termite helper insulin use (CMS/HCC); Pain due to onychomycosis of toenails of both feet Start: 05-04-2024 End: 05-04-2024 ambulatory SEVERO MILTON Not Available Start: 04-18-2024 End: 04-18-2024 ambulatory [facility] Start: 04-04-2024 ambulatory [facility] Start: 03-30-2024 End: 03-30-2024 ambulatory Mariah Prado [facility] Work Phone: Start: 03-30-2024 End: 03-30-2024 Departed Referred Mariah Prado PA-C Work Phone: [facility] Start: 02-24-2024 End: 02-24-2024 Bamboo flowsheet Severo Milton DPM Work Phone: [facility] Start: 02-24-2024 End: 02-24-2024 Bamboo flowsheet Severo Milton DPM Work Phone: [facility] Start: 02-24-2024 End: 02-24-2024 Office outpatient visit 15 minutes Severo Milton DPM Work Phone: [facility] Comment on above: Diabetes mellitus du e to underlying condition with diabetic polyneuropathy, unspecified whether fpc insulin use (CMS/HCC) (Primary Dx); Foot ulcer, left, with fat layer exposed (CMS/HCC) Start: 02-24-2024 End: 02-24-2024 ambulatory SEVERO MILTON Not Available Start: 02-03-2024 End: 02-03-2024 Patient encounter procedure Severo Milton DPM Work Phone: [facility] Comment on above: Diabetes mellitus du e to underlying condition with diabetic polyneuropathy, unspecified whether fpc insulin use (CMS/HCC) (Primary Dx); Foot ulcer, left, with fat layer exposed (CMS/HCC) Start: 02-03-2024 End: 02-03-2024 ambulatory SEVERO MILTON Not Available Start: 02-03-2024 End: 02-03-2024 Bamboo flowsheet Severo Milton DPM Work Phone: [facility] Start: 02-03-2024 End: 02-03-2024 Bamboo flowsheet Severo Milton DPM Work Phone: [facility] Start: 01-27-2024 End: 01-27-2024 ambulatory CIARAN PABON [facility] Start: 01-13-2024 End: 01-13-2024 ambulatory SEVERO MILTON Not Available Start: 01-13-2024 End: 01-13-2024 Office outpatient new 30 minutes Severo Milton DPM Work Phone: [facility] Comment on above: Foot ulcer, left, wi th fat layer exposed (CMS/HCC) (Primary Dx); Diabetes mellitus due to underlying condition with diabetic polyneuropathy, unspecified whether termite helper insulin use (CMS/HCC); Pain due to onychomycosis of toenails of both feet Start: 12-28-2023 End: 12-28-2023 ambulatory CIARAN PABON [facility] Start: 11-05-2023 End: 11-05-2023 ambulatory KAYLAH SIMMONS [facility] Start: 09-06-2023 End: 09-09-2023 Evaluation and management of inpatient [facility] Comment on above: Congestive heart lauri lure, [...] 09-07-2023 Glucose blood reagen t strip Luis Tapshot, [employer] DO Work Phone: Start: 09-07-2023 Echo tthrc r-t 2d w/wom-mode compl spec&colr d Solomon Nadir DO Work Phone: Start: 09-07-2023 Glucose blood reagen t strip Luis [employer] DO Work Phone: Start: 09-07-2023 Glucose blood reagen t strip Luis Tapshot, [employer] DO Work Phone: Start: 09-07-2023 BASIC METABOLIC [...] ferritin Marlene Orantes MD Work Phone: Start: 6 End: 09-06-2023 Basic metabolic panel calcium total Jaguar Cobos MD Work Phone: Start: 09-06-2023 Ecg routine ecg w/le ast 12 lds i&r only Jaguar Cobos MD Work Phone: Plan of Treatment Date Care Activity Detail Author Start: 07-13-2024 End: 07-13-2024 Patient encounter procedure 07/13/2024 1:20 PM EDT Office Visit [facility] [address] [facility] [address] [place] [phone] Severo Milton DPM [address] [id number] Dry gangrene (CMS/HCC) (Primary Dx); Diabetes mellitus due to underlying condition with diabetic polyneuropathy, unspecified whether fpc insulin use (CMS/HCC); Pain due to onychomycosis of toenails of both feet [facility] Comment on above: Dry gangrene (CMS/HC C) (Primary Dx); Diabetes mellitus due to underlying condition with diabetic polyneuropathy, unspecified whether fpc insulin use (CMS/HCC); Pain due to onychomycosis of toenails of both feet Start: 03-30-2024 Urine culture [facility] Start: 03-30-2024 Bacteria identified in Urine by Culture Urine Culture [facility] Start: 02-24-2024 End: 02-24-2024 Patient encounter procedure [facility] Comment on above: Diabetes mellitus du e to underlying condition with diabetic polyneuropathy, unspecified whether termite helper insulin use (CMS/HCC) (Primary Dx); Foot ulcer, left, with fat layer exposed (CMS/HCC) Start: 02-03-2024 End: 02-03-2024 Patient encounter procedure 02/03/2024 2:50 PM EST Office Visit [facility] [address] [facility] [address] [place] [phone] Severo Milton DPM [address] [phone] [facility] Start: 10-21-2023 Influenza vaccination Flu vacc ine (Season Ended) [facility] Start: 09-06-2023 Annual Wellness Visi t (Medicare) Annual Wellness Visit (Medicare) [facility] Start: 2004 Respiratory Syncytia l Virus (RSV) or age 60 yrs+ (1 - 1-dose 60+ series) Respiratory Syncytial Virus (RSV) or age 60 yrs+ (1 - 1-dose 60+ series) [facility] Start: 09-17-1999 Screening for osteoporosis DEXA (modify frequency per FRAX score) [facility] [employer] Start: 1994 Shingles vaccine (1 of 2) Shingles vaccine (1 of 2) [facility] [employer] Start: 1962 Hepatitis C screening Hepatitis C sc reen [facility] [employer] Start: 1956 Depression Screen Depression Screen [facility] [employer] Start: 1954 Lipid panel Lipids [facility] [employer] Start: 1950 Pneumococcal 65+ yea rs Vaccine (1 of 2 - PCV) Pneumococcal 65+ years Vaccine (1 of 2 - PCV) [facility] [employer] Start: 03-18-1945 COVID-19 Vaccine (#1) COVID-19 Vacci ne (#1) [facility] Continuous pulse oximetry Pulse oximetry, continuous Respiratory Care Routine Every 4hr until discontinued starting 09/07/2023 [facility] [employer] Comment on above: Every 4hr until disc ontinued starting 09/07/2023 Glucose [Mass/volume ] in Serum or Plasma [facility] Comment on above: 4X Daily (AC & HS) u ntil discontinued starting 09/06/2023 As Needed until disc ontinued starting 09/06/2023 Nasal Cannula Oxygen Nasal Cannu la Oxygen Respiratory Care Routine Daily until discontinued starting 09/07/2023 [facility] Comment on above: Daily until disconti nued starting 09/07/2023 Oxygen therapy [[facility] Data Set] Initiate Oxygen Therapy Protocol Respiratory Care Routine As Needed until discontinued starting 09/06/2023 [facility] Comment on above: As Needed until disc ontinued starting 09/06/2023 End: 09-08-2023 Wound ostomy eval Wound ostomy eval Wound Ostomy Routine One Time for 1 Occurrences starting 09/08/2023 until 09/08/2023 [facility] Comment on above: One Time for 1 Occur rences starting 09/08/2023 until 09/08/2023 End: 09-08-2023 Wound ostomy eval and treat Wound ostomy eval and treat Wound Ostomy Routine One Time for 1 Occurrences starting 09/08/2023 until 09/08/2023 [facility] Comment on above: One Time for 1 Occur rences starting 09/08/2023 until 09/08/2023 Payers Date Payer Category Payer Self-pay 2018 Medicaid [place] [id number] 2018 Medicaid [id number] 2003 Medicare MEDICARE [id number] 1959 Medicaid [id number] 1959 Medicare [id number] 1945 Unknown 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
--- NOTE | 2024-09-08 08:42 | CT_ITS ---
The [address] [address] Patient Name: NAVEED PRADO MRN: [id number] date: 1945 Sex: F Assigned Patient Location: Current Patient Location: Accession/Order Number: [id number] Exam Date: 09/08/2024 09:23 Report Date: 09/08/2024 09:33 At the request of: KAYLAH HERNANDEZ MD Procedure: CT abdomen pelvis wo con CT ABDOMEN AND PELVIS WITHOUT CONTRAST CLINICAL DATA: Sepsis. COMPARISON: None Spiral images were obtained through the abdomen and pelvis without contrast. Patient did receive contrast for a CT study yesterday. This CT exam was performed using one or more following dose reduction techniques: Automated exposure control, adjustment of the mA and/or kV according to patient size, or use of iterative reconstruction technique. Limited cuts through the lung bases show a left pleural effusion with adjacent compressive atelectasis. Additional interstitial changes and atelectasis are seen bilaterally. There is coronary artery disease and stents. Assessment of the intra-abdominal organs is slightly limited by the absence of contrast and streak artifact from patient's arms. The gallbladder is surgically absent. No common duct stones are noted. No obvious intrahepatic masses are seen. The spleen, pancreas and adrenal glands show no acute findings. There is minor bilateral perinephric fibrofatty stranding. No hydronephrosis is seen. There is atherosclerotic plaque involving the aorta, iliac and visceral arteries. There is no aortic aneurysm. No enlarged lymph nodes or ascites are seen. There are nondistended small bowel loops. Air and stool are visualized throughout the colon. There are postoperative changes of ventral hernia repair. The bony structures are osteopenic. There is levoscoliotic curvature and degenerative changes at the spine. Compression fractures are present at L2 and L5. There are no prior studies of this area to assess chronicity. Images through the pelvis show normal caliber small bowel loops. The appendix is not definitely seen. Stool is present at the distal colon. No diverticular disease is noted. The uterus is surgically absent. There is contrast within the urinary bladder from the previous study and no CT abnormalities are noted. There is no ascites. There is additional atherosclerotic disease. CT/CT abdomen pelvis wo con IMPRESSION: BIBASILAR INTRA-ABDOMINAL CHANGES, GREATER ON THE LEFT WHERE THERE IS ALSO PLEURAL EFFUSION. ATHEROSCLEROTIC DISEASE. NO BOWEL OR URINARY TRACT OBSTRUCTION. LUMBAR COMPRESSION DEFORMITIES, UNKNOWN CHRONICITY WITHOUT PRIORS. NO OTHER ACUTE FINDINGS. Impression dictated by: Arielle Carty M.D. 09/08/2024 9:33 AM Dictation Location: [place] [address] Electronically authenticated by: [id number] Y Date: 09/08/2024 09:33
--- NOTE | 2024-09-08 09:20 | CM.NOTE ---
Rounds made with Dr. Glez, pt will have CT of abdomen and chest. Possible transfer depending CT scans.
--- NOTE | 2024-09-08 09:59 | CT_ITS ---
The [address] [address] Patient Name: NAVEED PRADO MRN: [id number] date: 1945 Sex: F Assigned Patient Location: Current Patient Location: Accession/Order Number: [id number] Exam Date: 09/08/2024 11:05 Report Date: 09/08/2024 11:22 At the request of: KAYLAH HERNANDEZ MD Procedure: CT chest wo con CT CHEST WITHOUT CONTRAST COMPARISON: 09/24/2023 CLINICAL DATA: Follow-up pleural effusion. Spiral images were obtained through the chest without contrast. Images were reviewed using both narrow and wide window settings. This CT exam was performed using one or more following dose reduction techniques: Automated exposure control, adjustment of the mA and/or kV according to patient size, or use of iterative reconstruction technique. The heart is borderline enlarged. There is no pericardial effusion. Coronary artery disease and possible stents are visualized. There is no aortic aneurysm. Atherosclerotic plaque is seen at the aorta and proximal great vessels. Nodularity is again noted at the inferior pole of the right thyroid lobe. Scattered mediastinal lymph nodes are again visualized though there is slight interval increase in size with short axis dimension up to 16 mm in the right paratracheal region. The ignacio are more difficult to evaluate without contrast. The bony structures are osteopenic. Dextroscoliotic curvature and degenerative changes are present at the spine where there is possible DISH. There is a similar loculated left pleural effusion. There is continued consolidation at the left lower lobe and periphery of the lingula. Worsening patchy airspace opacity is seen at the right upper and to a lesser extent the middle lobe. Similar groundglass parenchymal changes are seen within the right lung. Additional scarring and/or atelectasis is seen bilaterally. No pleural effusion is present on the right. No pneumothorax is noted. Limited imaging through the upper abdomen shows additional atherosclerotic disease. There are no other contributory findings. CT/CT chest wo con IMPRESSION: BORDERLINE CARDIOMEGALY. NONSPECIFIC MEDIASTINAL LYMPH NODES, SLIGHTLY LARGER. SIMILAR LOCULATED LEFT PLEURAL EFFUSION. BILATERAL PARENCHYMAL CHANGES WITH INTERVAL WORSENING AT THE RIGHT UPPER AND MIDDLE LOBES. Impression dictated by: Arielle Carty M.D. 09/08/2024 11:22 AM Dictation Location: [place] [address] Electronically authenticated by: [id number] Y Date: 09/08/2024 11:22
[2024-09-08 10:07] LABS: pH ABG 7.408 (7.350-7.450)
[2024-09-08 10:08] LABS: ABG PCO2 43.1 mmHg (35.0-45.0); Allen Test POSITIVE (POSITIVE); Base Excess ABG 2.6 mmol/L (-2.0-2.0); HCO3 ABG 27.2 mmol/L (22.0-26.0); Liters per Minute 3; O2 Mode NC; Oxygen Saturation ABG 94.7 %; Puncture Site RR
--- NOTE | 2024-09-08 11:09 | CM.NOTE ---
Called pt's son to update regarding transfer to [facility], son is in agreement with facility and transfer.
[2024-09-08 11:11] LABS: Glucometer 124 mg/dL (74-106)
[2024-09-08] MEDS: IMIPENEM/CILASTATIN SODIUM 500 MG in 0.9 % SODIUM CHLORIDE 100 ML 100 MG IV (11:13)
--- NOTE | 2024-09-08 11:13 | PM.IMHP1 ---
Internal Medicine - H&P: HPI History of Present Illness Chief complaint: CELLULITUS LT LOWER LEG, ACUTE METABOLIC ENCEPHALO Narrative: Please Be aware that I am seeing this pt for the first time today. She was accepted by my night-team hospitalist team telephone directory deliverer. This is a 78 y.o female with past medical Hx of atrial fibrillation and CVA with residual left sided weakness, skin excoriations over her body, mood disorder, dysphagia, HTN, Heart Failure? mood disorder with baseline of alert and oriented x2-3 and talkative as per ED, morbid obesity, unseadiness with recurrent falls, constipation, on chronic anticoagulation with rivaroxaban, Here from the [facility] for altered mental status. Hx obtained from the NH and ED documentation as well from her Son and HELENE Arias, whom I called and spoke to earlier today. She was found to be unresponsive as per the NH team and was brought to the hospital for further workup and management. Was concern for seizure?Hx is very limited. In the ED pt was not hypotensive but was febrile with Tmax of 102.1. In the ED, Pt met severe sepsis criteria including: Leukocytosis with WBC of 26.6 and left shift, source of infection on UA (UTI) and left sided pleural effusion on Xray and CT chest today, tachypnea, and lactic acidosis. CT abdomen pelvis without contrast showed bibasilar intra-abdominal changes greater on the left where there is also pleural effusion. Atherosclerotic disease. No bowel or urinary tract obstruction. Venous Doppler of the left lower extremity was negative for DVT. CT chest without contrast showed located left pleural effusion with bilateral parenchymal changes interval worsening at the right upper and middle lobes. Pt received 1 dose of ceftriaxone IV and 1 dose of Azithromycin IV in the ED. When I saw the patient this morning, she was oriented to herself and to the place but she was clearly lethargic she still able to secure airways and she was following commands but very lethargic. Patient was already admitted under hospitalist service for further workup and management. Also as part of her neurologic workup done in the ED, CT head without contrast was negative for acute pathology. CTA neck and head showed: No evidence of aneurysmal dilatation, dissection or occlusion. Calcified plaque is noted in the carotid bifurcations with 75% narrowing of the proximal right internal carotid artery and 80% narrowing of the proximal left internal carotid artery. Calcified plaque is noted in the origins of the vertebral arteries contributing to severe stenosis bilaterally. Calcified plaque is noted in the proximal subclavian arteries bilaterally contributing to moderate stenosis bilaterally. Calcified plaques noted in the intracranial segments of the internal carotid arteries with mild to moderate multifocal narrowing greatest in the supraclinoid segments bilaterally. Review of Systems ROS Status of ROS unobtainable due to medical condition and unobtainable due to mental status PFSH PFS Medical History Urinary incontinence ?R32 - Unspecified urinary incontinence (ICD-10) half-way (current) use of anticoagulants ?Z79.01 - half-way (current) use of anticoagulants (ICD-10) Constipation ?K59.00 - Constipation, unspecified (ICD-10) Muscle weakness ?M62.81 - Muscle weakness (generalized) (ICD-10) Muscle wasting and atrophy, not elsewhere classified, unspecified site ?M62.50 - Muscle wasting and atrophy, not elsewhere classified, unspecified site (ICD-10) Pruritus ?L29.9 - Pruritus, unspecified (ICD-10) Hypertension ?I10 - Essential (primary) hypertension (ICD-10) Unspecified fracture of lower end of left humerus, subsequent encounter for fracture with routine healing ?S42.402D - Unspecified fracture of lower end of left humerus, subsequent encounter for fracture with routine healing (ICD-10) Chronic pain ?G89.29 - Other chronic pain (ICD-10) Edema ?R60.9 - Edema, unspecified (ICD-10) Unspecified fracture of shaft of humerus, left arm, subsequent encounter for fracture with routine healing ?S42.302D - Unspecified fracture of shaft of humerus, left arm, subsequent encounter for fracture with routine healing (ICD-10) Morbid obesity due to excess calories ?E66.01 - Morbid (severe) obesity due to excess calories (ICD-10) Restlessness and agitation ?R45.1 - Restlessness and agitation (ICD-10) Hallucination ?R44.3 - Hallucinations, unspecified (ICD-10) Repeated falls ?R29.6 - Repeated falls (ICD-10) Cerebral infarction ?I63.9 - Cerebral infarction, unspecified (ICD-10) COVID-19 ?U07.1 - COVID-19 (ICD-10) Hypotension ?I95.9 - Hypotension, unspecified (ICD-10) Atelectasis ?J98.11 - Atelectasis (ICD-10) Acidosis ?E87.20 - Acidosis, unspecified (ICD-10) Disorientation ?R41.0 - Disorientation, unspecified (ICD-10) Adverse effect of cardiac-stimulant glycosides and drugs of similar action, subsequent encounter ?T46.0X5D - Adverse effect of cardiac-stimulant glycosides and drugs of similar action, subsequent encounter (ICD-10) Shortness of breath ?R06.02 - Shortness of breath (ICD-10) Acute respiratory failure with hypoxia ?J96.01 - Acute respiratory failure with hypoxia (ICD-10) Atrial fibrillation with RVR ?I48.91 - Unspecified atrial fibrillation (ICD-10) Chest pain ?R07.9 - Chest pain, unspecified (ICD-10) Other specified disorders of bone density and structure, other site ?M85.88 - Other specified disorders of bone density and structure, other site (ICD-10) Osteoarthritis ?M19.90 - Unspecified osteoarthritis, unspecified site (ICD-10) Altered mental status ?R41.82 - Altered mental status, unspecified (ICD-10) Neuralgia and neuritis, unspecified ?M79.2 - Neuralgia and neuritis, unspecified (ICD-10) Unilateral primary osteoarthritis, right knee ?M17.11 - Unilateral primary osteoarthritis, right knee (ICD-10) Pseudobulbar affect ?F48.2 - Pseudobulbar affect (ICD-10) Anxiety ?F41.9 - Anxiety disorder, unspecified (ICD-10) Insomnia ?G47.00 - Insomnia, unspecified (ICD-10) Asthma ?J45.909 - Unspecified asthma, uncomplicated (ICD-10) GERD (gastroesophageal reflux disease) ?K21.9 - Gastro-esophageal reflux disease without esophagitis (ICD-10) Spondylosis without myelopathy or radiculopathy ?M47.819 - Spondylosis without myelopathy or radiculopathy, site unspecified (ICD-10) Anemia ?D64.9 - Anemia, unspecified (ICD-10) Hyperlipidemia ?E78.5 - Hyperlipidemia, unspecified (ICD-10) Major depressive disorder ?F32.9 - Major depressive disorder, single episode, unspecified (ICD-10) Unspecified dementia, unspecified severity, with agitation ?F03.911 - Unspecified dementia, unspecified severity, with agitation (ICD-10) Paroxysmal atrial fibrillation ?I48.0 - Paroxysmal atrial fibrillation (ICD-10) Atherosclerotic heart disease of [place] coronary artery without angina pectoris ?I25.10 - Atherosclerotic heart disease of [place] coronary artery without angina pectoris (ICD-10) Type 2 diabetes mellitus ?E11.9 - Type 2 diabetes mellitus without complications (ICD-10) Hemiplegia and hemiparesis 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 ?I69.354 - Hemiplegia and hemiparesis 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 (ICD-10) Heart failure ?I50.9 - Heart failure, unspecified (ICD-10) Hypertensive heart disease with heart failure ?I11.0 - Hypertensive heart disease with heart failure (ICD-10) Dysphagia following cerebral infarction ?I69.391 - Dysphagia following cerebral infarction (ICD-10) Metabolic encephalopathy ?G93.41 - Metabolic encephalopathy (ICD-10) Cerebrovascular disease, unspecified ?I67.9 - Cerebrovascular disease, unspecified (ICD-10) Social History Highest level of school completed/degree received: high school graduate Meds Home Medications and Allergies Home Medications ?Medication ?Instructions ?Recorded ?Confirmed ?Type acetaminophen 500 mg capsule 1,000 mg PO DAILY 09/06/23 09/07/24 History atorvastatin 20 mg tablet (Lipitor) 20 mg PO DAILY 09/06/23 09/07/24 History calcium 500 mg (as 1 tab PO BID 09/06/23 12/07/23 History carbonate)-vitamin D3 10 mcg (400 unit) tablet (Oyster Shell Calcium-Vitamin D3) dextromethorphan 20 mg-quinidine 1 cap PO Q12H 09/06/23 09/07/24 History 10 mg capsule (Nuedexta) duloxetine 30 mg capsule,delayed 30 mg PO DAILY 09/06/23 09/07/24 History release (Cymbalta) ferrous sulfate 325 mg (65 mg 325 mg PO BID 09/06/23 09/07/24 History iron) tablet (FeroSul) lamotrigine 100 mg tablet 100 mg PO DAILY 09/06/23 09/07/24 History (Lamictal) magnesium 200 mg tablet 400 mg PO DAILY 09/06/23 09/07/24 History melatonin 10 mg capsule 6 mg PO DAILY 09/06/23 09/07/24 History memantine 21 mg capsule 21 mg PO DAILY 09/06/23 09/07/24 History sprinkle,extended release 24hr metformin 1,000 mg tablet 1,000 mg PO DAILY 09/06/23 09/07/24 History nitroglycerin 0.4 mg sublingual 0.4 mg sublingual Q5M 09/06/23 09/07/24 History tablet (Nitrostat) polyethylene glycol 3350 17 17 g PO QID constipation 09/06/23 09/07/24 History gram/dose oral powder (ClearLax) psyllium husk 0.4 gram capsule 0.4 g PO BID 09/06/23 12/07/23 History (Daily Fiber) rivaroxaban 20 mg tablet (Xarelto) 20 mg PO DAILY 09/06/23 09/07/24 History spironolactone 50 mg tablet 50 mg PO DAILY 09/06/23 09/07/24 History artificial 1 drp ophthalmic (eye) Q12H 09/24/23 09/07/24 History tears(wevamhy-prriijwd-cdajlke) 0.1 %-0.3 %-0.2 % eye drops (GenTeal Tears Moderate) clobetasol 0.05 % topical cream 1 applic topical BID PRN vaginal 09/24/23 09/07/24 History irritation famotidine 40 mg tablet (Pepcid) 40 mg PO DAILY 09/24/23 09/07/24 History lamotrigine 25 mg tablet 25 mg PO DAILY 09/24/23 09/07/24 History linagliptin 5 mg tablet (Tradjenta) 5 mg PO DAILY 09/24/23 09/07/24 History furosemide 20 mg tablet 20 mg PO QDAY 10/06/23 09/07/24 History midodrine 5 mg tablet 5 mg PO BID PRN hypotension 10/06/23 09/07/24 History sotalol 80 mg tablet 80 mg PO Q12H 12/07/23 12/07/23 History amiodarone 200 mg tablet 200 mg PO DAILY 03/30/24 09/07/24 History ciprofloxacin HCl 250 mg tablet 250 mg PO BID 3 days #6 tabs 03/30/24 Rx (Cipro) albuterol sulfate 0.63 mg/3 mL 0.63 mg inhalation Q6H PRN 09/07/24 09/07/24 History solution for nebulization shortness of breath or wheezing calcium 250 mg (as 1 tab PO BID 09/07/24 09/07/24 History carbonate)-vitamin D3 3.125 mcg (125 unit) tablet (Oyster Shell + D3) empagliflozin 10 mg tablet 10 mg PO DAILY 09/07/24 09/07/24 History (Jardiance) hydroxyzine HCl 10 mg tablet 10 mg PO TID PRN unknown 09/07/24 09/07/24 History insulin glargine 100 unit/mL (3 15 unit subcut DAILY 09/07/24 09/07/24 History mL) subcutaneous pen (Lantus Solostar U-100 Insulin) iodosorb topical DAILY 09/07/24 History nystatin 100,000 unit/gram topical 1 applic topical BID 09/07/24 09/07/24 History powder (Nyamyc) oxymetazoline 0.05 % nasal spray 2 spray intranasal DAILY PRN nasal 09/07/24 09/07/24 History (12 Hour Nasal Relief [place]) congestion pioglitazone 15 mg tablet (Actos) 15 mg PO DAILY 09/07/24 09/07/24 History psyllium husk 0.4 gram capsule 0.4 g PO BID 09/07/24 09/07/24 History (Daily Fiber) simethicone 125 mg chewable tablet 125 mg PO DAILY PRN abdominal 09/07/24 09/07/24 History (Gas Relief Extra Strength) distention sodium chloride 0.65 % nasal spray 1 spray intranasal QID 09/07/24 09/07/24 History aerosol (Tow Saline) Allergies Allergy/AdvReac Type Severity Reaction Status Date / Time aspirin Allergy Unknown Unknown Verified 09/07/24 20:15 fluoxetine (From Prozac) Allergy Unknown Unknown Verified 09/07/24 20:15 hydrochlorothiazide Allergy Unknown Unknown Verified 09/07/24 20:15 Penicillins Allergy Unknown Unknown Verified 09/07/24 20:15 pregabalin (From Lyrica) Allergy Unknown Unknown Verified 09/07/24 20:15 sertraline (From Zoloft) Allergy Unknown Unknown Verified 09/07/24 20:15 Sulfa (Sulfonamide Allergy Unknown Unknown Verified 09/07/24 20:15 Antibiotics) tetanus and diphtheria Allergy Unknown Unknown Verified 09/07/24 20:15 toxoids Exam Narrative Exam Narrative: General/Neuro: Ill appearing, lying in bed, lethargic, Oriented to herself and to place, not to the year, following commands with clear weakness on the left sided upper and lower extremity, compatible with her Hx of left sided hemiparesis Lethargic but is able to secure her airways, Her GCS is 11 Eye: PERRL, EOMI, normal conjunctiva. HENT: Normocephalic, normal hearing, dry oral mucosa, no scleral icterus, no sinus tenderness. Neck: Supple, non-tender, no carotid bruits, no JVD, no lymphadenopathy. Lungs: Decreased air entry bilaterally worse on the left, rhonchi heard, no wheezes, on 2 liters nasal cannula, she is not tachypneic and is not using accessory muscles Heart: Normal rate, regular rhythm, no murmur, gallop or edema. Abdomen: Soft, non-tender, non-distended, normal bowel sounds, no masses. Obese Musculoskeletal: Left leg from the knee to the ankle has erythema and warmth with tenderness to palpation, intact peripheral pulses bilaterally Constitutional Vital Signs, click to edit/add: Last Vital Signs Temp 98.9 F 09/08/24 08:00 Pulse 68 09/08/24 10:16 Resp 20 09/08/24 10:01 BP 129/67 09/08/24 10:01 Pulse Ox 90 L 09/08/24 10:16 O2 Del Method Nasal Cannula 09/08/24 03:12 O2 Flow Rate 2 09/08/24 03:12 Internal Medicine - H&P: Reslt Labs Labs: Short CBC 09/07/24 09/08/24 Range/Units 19:17 05:15 WBC 26.6 H 22.6 H (4.0-11.0) 10^3/uL Hgb 11.5 L 10.2 L (12.0-16.0) g/dL Hct 36.5 33.3 L (36.0-48.0) % Plt Count 331 297 (150-450) 10^3/uL BMP 09/07/24 09/08/24 20:34 05:15 Sodium 134 L 137 Potassium 6.4 H* 4.9 Chloride 97 L 100 Carbon Dioxide 30.9 27.7 BUN 28.0 H 27.0 H Creatinine 1.51 H 1.31 H Glucose 123 H 196 H Calcium 10.2 H 10.1 Liver Function 09/07/24 09/08/24 Range/Units 20:34 05:15 Total Bilirubin 0.6 0.5 (0.2-1.0) mg/dL AST 19 20 (15-37) U/L ALT 12 L 14 (14-59) U/L Alkaline Phosphatase 74 66 (46-116) U/L Albumin 2.7 L 2.3 L (3.4-5.0) g/dL Urine 09/07/24 Range/Units 19:14 Urine Color Lt. yellow (YELLOW) Urine Clarity Sl cloudy (CLEAR) Urine pH 7.0 (5.0-9.0) Ur Specific [place] 1.010 (1.005-1.025) Urine Protein Trace (NEG/TRACE) mg/dL Urine Glucose (UA) 500 A (NEGATIVE) mg/dL Urinary Catheter Management Urinary Catheter Management Straight: Cath placed during this visit: yes Urethral indwelling: Yes Reason for continuing: measure accurate output Insertion date: 09/07/24 Insertion time: 19:20 Urethral: Cath placed during this visit: yes Urethral indwelling: Yes Reason for continuing: measure accurate output Insertion date: 09/08/24 Insertion time: 10:30 Assessment and Plan Assessment and Plan (1) Bilateral pneumonia: (2) Cellulitis of left lower leg: (3) Acute UTI: (4) Acute metabolic encephalopathy: (5) Severe sepsis: (6) BAKARI (acute kidney injury): Plan Metabolic encephalopathy in the setting of Severe sepsis due to Pneumonia with Pleural effusion (ruling out empyema), Left lower extremity Cellulitis, and Complicated UTI BAKARI in the setting of hypoperfusion from severe sepsis Seizure is less likely -Pt was already admitted to Stepdown floor -Switched her ceftriaxone and azithromycin ordered by the night team to IV Vancomycin and IV Zosyn (pt tolerated ceftriaxone here) -Pharmacy to help dose the medications, I gave her a dose of Imipinem but given concern for seizure I would prefer zosyn for now -Stopped her fluids as her BP is stable -I held her norco given her mental status -Avoiding nephrotoxic medications -Miller to strictly monitor her output -I discussed the plan with her son and HELENE Arias, who confirmed her full code which I made sure is updated in the chart -I spoke to Hugo that the pt will need to be transferred out of our facility as she is will need airway monitoring and Pulm consult for her effusion and for possible need for thoracentesis, he is in agreement with the plan -I spoke to hospitalist, Dr. Macsorro, at [facility], who kindly accepted the pt to go to -I wanted to hold her Xarelto and put her on lovenox in case she gets any procedure at [facility], Unfortunately she already got her xarelto earlier this am at 9 am
--- NOTE | 2024-09-08 11:16 | CA_ITS ---
Patient Name: NAVEED PRADO MR#: [id number] : 1945 Exam Date: 09/08/2024 Ordering Doctor: KAYLAH HERNANDEZ ECHOCARDIOGRAM REPORT PROCEDURE: CA ECHO LIMITED INDICATIONS: Assessing EF, Hx of HF, hypertension, diabetes COMPARISON: None. DESCRIPTION: Limited ECHOCARDIOGRAM Real-time transthoracic echocardiography with 2D and M-mode performed. QUALITY: Technical quality was good. Limited echocardiogram per physician order. LEFT VENTRICLE: Normal chamber size. Thickened septal wall. Moderate concentric hypertrophy. Systolic function is normal. Estimated left ventricular ejection fraction is 60%. LV EF: Normal left ventricular ejection fraction, (>55%). DIASTOLIC: ATRIAL SEPTUM: LEFT ATRIUM: Mild dilatation. RIGHT ATRIUM: Normal chamber size. RIGHT VENTRICLE: Normal chamber size. Normal systolic function. TRICUSPID VALVE: Normal mobility and thickness. MITRAL VALVE: Normal mobility and thickness. Mild mitral annular calcification. AORTIC VALVE: Normal trileaflet appearance. Moderately calcified aortic valve. Moderately diminished mobility. AORTIC ROOT: Normal diameter and appearance, measuring 3.2 cm. PULMONIC VALVE: Normal thickness and mobility. PERICARDIUM: No evidence of pericardial effusion. IVC: Collapses with inspiration. PLEURA: CONCLUSION: 1. Moderate concentric left ventricular hypertrophy with normal systolic function. Estimated LVEF is 60%. 2. Normal right ventricular size and systolic function. 3. No pericardial effusion. 4. Limited study performed with no Doppler interrogation as requested. Adult Echocardiography Procedure Report Left Ventricle LVEDD (3.7 - 5.6 cm): 4.41 cm LVESD (2.2 - 4.0 cm): 3.27 cm LVIVS thickness (0.6 - 1.2 cm): 1.49 cm LVPW thickness (0.5 - 1.0 cm): 1.26 cm LVOT Diameter 2.27 cm Left Atrium LA Volume Index (2D A2C): 38.18 ml/m2 Left Atrium Systolic Dimension: 3.47 cm Mitral Valve Right Ventricle Aorta AO Root Diam: 3.18 cm Aortic Valve Tricuspid Valve Pulmonic Valve Right Atrium Right Atrium Systolic Pressure: 42.47 ml, 42.47 ml Dictated by: Nehemiah Blevins M.D. on 09/08/2024 at 18:14 Approved by: Nehemiah Blevins M.D. on 09/08/2024 at 18:16
--- NOTE | 2024-09-08 11:39 | XR_ITS ---
The [address] [address] Patient Name: NAVEED PRADO MRN: [id number] date: 1945 Sex: F Assigned Patient Location: [place] Current Patient Location: [place] Accession/Order Number: [id number] Exam Date: 09/08/2024 12:27 Report Date: 09/08/2024 12:32 At the request of: KAYLAH HERNANDEZ MD Procedure: XR tibia fibula CARLA 2V BILATERAL TIB-FIB - 2 views each CLINICAL DATA: Leg pain. COMPARISON: None AP and lateral views of both lower legs were obtained. There is osteopenia. No definite acute fractures or dislocation are identified. Mild degenerative changes are seen at both knees where there may be lateral meniscal chondrocalcinosis. There is mild asymmetric soft tissue swelling and subcutaneous edema around the knee and proximal lower leg on the left. There is prominent atherosclerotic disease. XR/XR tibia fibula CARLA 2V IMPRESSION: OSTEOPENIA AND MILD DEGENERATIVE CHANGES AT THE KNEES. NO ACUTE BONY FINDINGS. Impression dictated by: Arielle Carty M.D. 09/08/2024 12:32 PM Dictation Location: [place] [address] Electronically authenticated by: [id number] Y Date: 09/08/2024 12:32
--- NOTE | 2024-09-08 12:17 | PC.NURSE ---
Report called to Alie KEANE at [facility] at 1208. Alie KEANE denies questions at this time.
--- NOTE | 2024-09-08 12:20 | PC.NURSE ---
Son Hugo updated about transfer at this time. Hugo denies any questions or concerns at this time.
--- NOTE | 2024-09-08 13:48 | PC.NURSE ---
Pt left with [facility] to transfer to [facility]. Alie KEANE at [facility] updated as well as lul Arias.
--- NOTE | 2024-09-11 15:26 | CM.NOTE ---
Final culture went to [facility], pt transferred.
== END 2024-09-08 13:46 | disposition short-term general hospital (02) | DRG 871 ==
LOC: ER 23:50 → MS 09-08 00:20
PROVIDERS: Registered Nurse; Admitting Provider Student in an Organized Health Care Education/Training Program; Emergency Provider Emergency Medicine; PCP Family Medicine; Visit Provider Student in an Organized Health Care Education/Training Program
DX: A41.81 Sepsis due to Enterococcus (principal); G93.41 Metabolic encephalopathy; J18.9 Pneumonia, unspecified organism; N39.0 Urinary tract infection, site not specified; L03.116 Cellulitis of left lower limb; I69.354 Hemiplegia and hemiparesis 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; N17.9 Acute kidney failure, unspecified; I48.0 Paroxysmal atrial fibrillation; F39 Unspecified mood [affective] disorder; I10 Essential (primary) hypertension; E66.01 Morbid (severe) obesity due to excess calories; Z91.81 History of falling; Z79.01 Long term (current) use of anticoagulants; Z79.899 Other long term (current) drug therapy; R65.20 Severe sepsis without septic shock; I65.23 Occlusion and stenosis of bilateral carotid arteries; Z86.16 Personal history of COVID-19; I69.391 Dysphagia following cerebral infarction; Z99.81 Dependence on supplemental oxygen; Z79.84 Long term (current) use of oral hypoglycemic drugs; Z79.4 Long term (current) use of insulin; J45.909 Unspecified asthma, uncomplicated; K21.9 Gastro-esophageal reflux disease without esophagitis; Z68.32 Body mass index [BMI] 32.0-32.9, adult; E11.628 Type 2 diabetes mellitus with other skin complications
CPT/HCPCS: 36415; 36600; 51702; 70450; 70496; 70498; 71045; 71250; 73590; 74176; 80053; 81001; 82805; 82948; 83605; 83735; 84484; 85007; 85025; 85027; 85610; 86140; 87040; 87086; 87088; 87186; 93005; 93308; 93971; 94640; 94761; 96361; 96365; 96367; 99285; J0456; J0613; J0696; J0743; J1817; J3370; Q9966